=== PATIENT | male | born 1945 ===

== ENCOUNTER 2024-03-08 18:21 | Outpatient (NON) | payer MEDICARE, SELFPAY ==
[2024-03-08 18:41] LABS: Add Urine Microscopic? YES; Appearance Urine Clear (Clear); Bilirubin Urine Negative (Negative); Blood Urine Negative (Negative); Color Urine Light Yellow (Yellow); Glucose Urine UA Negative (Negative); Ketones Urine Trace (Negative); Leukocyte Esterase Ur Trace LEU/UL (Negative); Nitrate Urine Positive (Negative); Protein Urine Trace (Negative); Specific Grav Ur 1.025 (1.010-1.020); Urobilinogen Urine 0.2 mg/dL (0.2-1.0)
[2024-03-08 18:43] LABS: RBC Urine 0-2 /hpf (0-2); Squamous Epithelial Cell Urine Few /hpf (Few); WBC Urine 0-3 /hpf (0-3)
[2024-03-08 18:44] LABS: Bacteria Urine 3+ /hpf
== END 2024-03-08 18:22 | disposition home or self-care (01) ==
LOC: CHSLAB 18:28
DX: R35.0 Frequency of micturition (principal)
CPT/HCPCS: 81001; 87077; 87086; 87088; 87186

== ENCOUNTER 2024-05-20 13:17 | Observation (INO) | payer MEDICARE, SELFPAY ==
--- NOTE | ~2024-05-20 | CT_ITS ---
EXAMINATION: CT abdomen pelvis wo con DATE: 05/20/2024 13:59 INDICATION: Constipation and diarrhea. Generalized abdominal pain. TECHNIQUE: Computed tomography (CT) of the abdomen and pelvis was performed without intravenous contr ast. Automated exposure control and iterative reconstruction technique were employed. The dose-length product was 388.22 mGy-cm. COMPARISON: None. FINDINGS: The visualized portions of lung bases demonstrate mild atelectasis and mild chronic lung di sease. No pleural effusion. There is left atrial enlargement of the heart. There are coronary artery calcifications. No pericardial effusion. There is a 2.5 cm cyst in the liver. The gallbladder, spleen , pancreas, adrenal glands, and right kidney are normal. There is cortical thinning of left kidney. T here are no dilated loops of bowel. There is a moderate volume of stool in the colon. The appendix is normal. There are no pathologically enlarged lymph nodes. There is no free intraperitoneal fluid. Th ere is severe lumbar spondylosis. IMPRESSION: 1. No etiology for the patient's symptoms. Reviewed, dictated and finalized at location A. R MANAGER
--- NOTE | ~2024-05-20 | XR_ITS ---
EXAMINATION: XR chest 1V DATE: 05/20/2024 14:00 INDICATION: Weakness. Leg edema. TECHNIQUE: A single frontal view of the chest was obtained. COMPARISON: CT abdomen and pelvis 05/20/2024 FINDINGS: The lung apices are excluded. There is mild atelectasis at the lung bases. No pleural effus ion or pneumothorax. The heart size is normal. IMPRESSION: 1. Mild atelectasis at the lung bases. 2. Lung apices excluded. Reviewed, dictated and finalized at location A. S ANALYSIS MANAGER
--- NOTE | ~2024-05-20 | CT_ITS ---
EXAMINATION: CT lumbar spine wo con DATE: 05/20/2024 13:58 INDICATION: Low back pain. TECHNIQUE: Computed tomography (CT) of the lumbar spine was performed without intravenous contrast. A utomated exposure control and iterative reconstruction technique were employed. The dose-length produ ct was 892.54 mGy-cm. COMPARISON: None FINDINGS: There is 12 degrees dextroscoliosis of lumbar spine. There is mild chronic height loss of T 10-T12 vertebral bodies. There are Schmorl's nodes at multiple levels. There is mildly decreased disc height at T11-T12 and T12-L1, moderately decreased disc height at L1-L2 and L2-L3, severely decrease d disc height at L3-L4 and L4-L5, and moderately decreased disc height at L5-S1. Osseous central spin al canal is developmentally small. The following disc levels are specifically discussed: L1-L2: The disc is bulging. There is severe bilateral facet joint osteoarthritis. There is mild bilat eral neural foraminal stenosis. There is mild central canal stenosis. L2-L3: The disc is bulging. There is moderate bilateral facet joint osteoarthritis. There is moderate right and mild left neural foraminal stenosis. There is mild central canal stenosis. L3-L4: The disc is bulging. There is severe bilateral facet joint osteoarthritis. There is moderate b ilateral neural foraminal stenosis. There is mild central canal stenosis. L4-L5: The disc is bulging. There is severe bilateral facet joint osteoarthritis. There is moderate b ilateral neural foraminal stenosis. There is moderate central canal stenosis. L5-S1: The disc is bulging. There is severe bilateral facet joint osteoarthritis. There is mild bilat eral neural foraminal stenosis. There is mild central canal stenosis. IMPRESSION: 1. Severe lumbar spondylosis. 2. Lumbar dextroscoliosis. Reviewed, dictated and finalized at location A. STRIAL RELATIONS COMMISSIONER
[2024-05-20 13:21] VITALS: BP 153/101; PULSE 87; RESP 17; TEMP 36.4; O2SAT 97
--- OUTSIDE RECORDS SUMMARY | 2024-05-20 13:30 | XMS_ITS | Clinical Summary ---
Author Organization [facility] Address [address] [place] [address] Phone Care Team Providers Care Director Of Religious Life Name Role Phone JIMMY PRICE, SAI Primary Care Provider [phone] JIMMY Andrews, GLENNA Macias Unavailable [phone] Reason for Visit and Chief Complaint visit for: hyperlipedemia follow up, visit for: Followup of Chronic Pain theraphy, visit for: Hypertension follow-up - The Chief Complaint is: 2 months f/u, no new concerns Problems Includes: Problems addressed during this encounter and other active Problems Current Visit Onset Date Resolved Date Provider Mickie crowe Status Chronic Renal Failure 06/14/2022 MEGAN MARQUEZ M.D. Active Last Documented On 06/14/2022 11:26AM ; [facility] Note: Unchanged Constipation Drug-induced 02/18/2022 GLENNA MARQUEZ M.D. Active Last Documented On 02/18/2022 11:15AM ; [facility] Note: Unchanged Spinal Stenosis Lumbosacral 05/20/2021 GLENNA MARQUEZ M.D. Active Last Documented On 2 10:56AM ; [facility] Atrial Fibrillation 03/02/2021 GLENNA MARQUEZ M.D. Active Last Documented On 1 11:51AM ; [facility] Note: Unchanged Hyperlipidemia 08/04/2017 GLENNA MARQUEZ M.D. Active Last Documented On 8 10:00AM ; [facility] Note: Unchanged Esophageal Reflux 05/25/2012 GLENNA June Active Last Documented On 4 9:40AM ; [facility] Hyperlipidemia 08/25/2010 GLENNA MARQUEZ M.D. Inactive Last Documented On 5 10:50AM ; [facility] Essential Hypertension 08/25/2010 GLENNA WHEELER M.D. Active Last Documented On 4 9:40AM ; [facility] Plan of Treatment - Monitor Blood Pressure at home - Last Documented On 05/30/2023 11:25AM ; [facility] - Return to the clinic if condition worsens or new symptoms arise - Last Documented On 05/30/2023 11:25AM ; [facility] - Continue current medication - Last Documented On 05/30/2023 11:25AM ; [facility] - Modify drug dosage Lisinopril to 20 mg 2 x a day - Last Documented On 05/30/2023 11:25AM ; [facility] - Patient to call if problem develops - Last Documented On 05/30/2023 11:25AM ; [facility] Assessments Includes: Assessments from this encounter Findings - I48.91 - Unspecified atrial fibrillation - Last Documented On 05/30/2023 11:25AM ; [facility] - I10 - Essential (primary) hypertension - Last Documented On 05/30/2023 11:25AM ; [facility] - K21.9 - Gastro-esophageal reflux disease without esophagitis - Last Documented On 05/30/2023 11:25AM ; [facility] - K59.03 - Drug induced constipation - Last Documented On 05/30/2023 11:25AM ; [facility] - N18.9 - Chronic kidney disease, unspecified - Last Documented On 05/30/2023 11:25AM ; [facility] - E78.5 - Hyperlipidemia, unspecified - Last Documented On 05/30/2023 11:25AM ; [facility] - M48.07 - Spinal stenosis, lumbosacral region - Last Documented On 05/30/2023 11:25AM ; [facility] Medical Equipment - Implanted Devices Includes: Current Devices No Medical Equipment Recorded Medications Includes: Medications discussed during this encounter and other current Medications Discontinued / Stopped on this date GLENNA MARQUEZ M.D. on 11/17/2022 Movantik 25 MG Oral Tablet Provider: Atul MARQUEZ M.D. Diagnosis: Drug induced con stipation Last Documented On 05/30/2023 11:18AM By SAI MARQUEZ MD ; [facility] New / Renewed during this visit GLENNA MARQUEZ M.D. on 05/30/2023 Lisinopril 20 MG Oral Tablet Provider: GLENNA MARQUEZ M.D. 90 day supply: 180 tablet, 0 refills Diagnosis: Essential (primary) hypertension One tablet twice a day Pharmacy: [address] [phone] - Last Documented On 07/10/2023 2:02PM By SAI MARQUEZ MD ; [facility] Current Medications (continue as prescribed) HYDROcodone-Acetaminophen 7. 5-325 MG Oral Tablet 09/11/2023 Provider: GLENNA MARQUEZ M.D. Diagnosis: Spinal stenosis, lumbosacral region Take one four times a day as needed Last Documented On 09/11/2023 10:36AM By SAI MARQUEZ MD ; [facility] Lisinopril 20 MG Oral Tablet 07/10/2023 Provider: GLENNA MARQUEZ M.D. Diagnosis: Essential (prima ry) hypertension TAKE 1 TABLET BY MOUTH TWICE DAILY Last Documented On 07/10/2023 3:00PM By SAI MARQUEZ MD ; [facility] Eliquis 5 MG Oral Tablet 07/10/2023 Provider: SAI MARQUEZ M.D. Diagnosis: Unspecified atri al fibrillation One tablet twice a day Last Documented On 07/10/2023 2:28PM By SAI MARQUEZ MD ; [facility] Naloxone HCl 4 MG/0.1ML Nasal Liquid 03/29/2023 Provider: GLENNA MARQUEZ M.D. Diagnosis: long-term (curre nt) use of opiate analgesic as directed 4 mg nasally as needed Last Documented On 03/29/2023 11:32AM By SAI MARQUEZ MD ; [facility] Pravastatin Sodium 20 MG Oral Tablet 03/29/2023 Provider: GLENNA MARQUEZ M.D. Diagnosis: Hyperlipidemia, unspecified TAKE 1 TABLET BY MOUTH DAILY Last Documented On 03/29/2023 1:37PM By SAI MARQUEZ MD ; [facility] Suspended Medications MiraLax 17 GM/SCOOP Oral Powder 02/22/2023 Provider: GLENNA MARQUEZ M.D. Diagnosis: as directed 1 to scops q day Last Documented On 02/22/2023 8:51AM By GUERDA Beavers LPN ; [facility] Medications Administered Includes: Administered Medications from this encounter No Administered Medications Recorded Vital Signs Includes: Vital Signs from this encounter Vital Name 05/30/2023 11:01A Blood Pressure Sitting L 132/84 BP Cuff Size Regular Pulse Rate-Sitting (bpm) 68 Pulse Rhythm Regular Respiration Rate (breaths/min) 16 Height (in) 68 Weight (lb) 189.8 Body Mass Index 28.9 Body Surface Area 2 Oxygen Saturation (%) 97 Last Documented: On 05/30/2023 11:05A M ; [facility] Results Includes: Results discussed during this encounter CBC WITH DIFF [facility] La boratory Ordered by GLENNA Coronel on 05/11/2023 [address] [address], [place], [address] Collected: 05/26/2023 Report ed: 05/26/2023 11:17 tel: Last Documented On 4 12:04PM ; [facility] Reviewed by GLENNA MARQUEZ M.D. on 05/26/2023; All test results are final unless otherwise noted. ALC 1.2 None Last Documented On 4 11:58AM ; [facility] Note: Responsible Observer: (HRG) ANC 4.3 None Last Documented On 4 11:58AM ; [facility] Note: Responsible Observer: (HRG) BASO# 0.02 th/uL (0.00 - 0.20) None Last Documented On 4 11:58AM ; [facility] Note: Responsible Observer: (HRG) BASO% 0.3 % (0.0 - 2.0) None Last Documented On 4 11:58AM ; [facility] Note: Responsible Observer: (HRG) CBC WITH DIFF See Note None Last Documented On 4 11:58AM ; [facility] Note: CBC (COMPLETE BLOOD COUNT)Responsi ble Observer: (HRG) DIFF (Y/N) NO None Last Documented On 4 11:58AM ; [facility] Note: Responsible Observer: (HRG) EOS# 0.23 th/uL (0.00 - 0.45) None Last Documented On 4 11:58AM ; [facility] Note: Responsible Observer: (HRG) EOS% 3.6 % (0.0 - 9.0) None Last Documented On 4 11:58AM ; [facility] Note: Responsible Observer: (HRG) HCT 38.6 % (40.0 - 54.0) L (Low) Last Documented On 4 11:58AM ; [facility] Note: Responsible Observer: (HRG) HGB 12.9 g/dL (13.5 - 17.5) L (Low) Last Documented On 4 11:58AM ; [facility] Note: Responsible Observer: (HRG) IG# 0.04 th/ul (0.00 - 0.10) None Last Documented On 4 11:58AM ; [facility] Note: Responsible Observer: (HRG) IG% 0.6 % (0.0 - 0.5) H (High) Last Documented On 4 11:58AM ; [facility] Note: Responsible Observer: (HRG) LYMPH# 1.19 th/uL (1.00 - 4.80) None Last Documented On 4 11:58AM ; [facility] Note: Responsible Observer: (HRG) LYMPH% 18.7 % (14.0 - 45.0) None Last Documented On 4 11:58AM ; [facility] Note: Responsible Observer: (HRG) MCH 32.9 pg (25.0 - 35.0) None Last Documented On 4 11:58AM ; [facility] Note: Responsible Observer: (HRG) MCHC 33.4 g/dL (31.0 - 36.0) None Last Documented On 4 11:58AM ; [facility] Note: Responsible Observer: (HRG) MCV 98.5 fl (80.0 - 100) None Last Documented On 4 11:58AM ; [facility] Note: Responsible Observer: (HRG) MONO# 0.64 th/uL (0.00 - 0.80) None Last Documented On 4 11:58AM ; [facility] Note: Responsible Observer: (HRG) MONO% 10.1 % (1.0 - 10.0) H (High) Last Documented On 4 11:58AM ; [facility] Note: Responsible Observer: (HRG) MPV 12.7 fl (6.0 - 11.0) H (High) Last Documented On 4 11:58AM ; [facility] Note: Responsible Observer: (HRG) NEUT# 4.24 th/uL None Last Documented On 4 11:58AM ; [facility] Note: Responsible Observer: (HRG) NEUT% 66.7 % (45.0 - 76.0) None Last Documented On 4 11:58AM ; [facility] Note: Responsible Observer: (HRG) NRBC% 0.0 % (0.0 - 0.0) None Last Documented On 4 11:58AM ; [facility] Note: Responsible Observer: (HRG) PLT 141 th/uL (150 - 400) L (Low) Last Documented On 4 11:58AM ; [facility] Note: Responsible Observer: (HRG) RBC 3.92 mil/uL (4.50 - 5.90) L (Low) Last Documented On 4 11:58AM ; [facility] Note: Responsible Observer: (HRG) RDW 11.7 % (11.0 - 16.0) None Last Documented On 4 11:58AM ; [facility] Note: Responsible Observer: (HRG) WBC 6.4 th/uL (4.5 - 11.0) None Last Documented On 4 11:58AM ; [facility] Note: Responsible Observer: (HRG) BMP [facility] La boratory Ordered by GLENNA Coronel on 05/11/2023 [address] [facility], [place], [address] Collected: 05/26/2023 Report ed: 05/26/2023 11:34 tel: Last Documented On 4 12:04PM ; [facility] Reviewed by GLENNA MARQUEZ M.D. on 05/26/2023; All test results are final unless otherwise noted. AGE 78 YEARS None Last Documented On 4 11:58AM ; [facility] Note: Responsible Observer: (APR) ANION GAP 14.3 mmol/L (8.0 - 16.0) None Last Documented On 4 11:58AM ; [facility] Note: eGFR INTERPRETATION AGE AVG GFR 2 0-29 116 ml/min/1.73 m2 30-39 107 ml/min/1.73 m2 40-49 99 ml/min/1.73 m2 50-59 93 ml/min/1.73 m2 60-69 85 ml/min/1.73 m2 70+ 75 ml/min/1.73 m2 Chronic Kidney Disease-Less than 60 ml/min Kidney Failure-Less than 15 ml/min eGFR not calculated on patients <18 due to calculation differences. Please see the website below for the pediatric GFR calculator. https://www.kidney.org/professionals/kdoqi/gfr_calculatorped Responsible Observer: (APR) BMP See Note None Last Documented On 4 11:58AM ; [facility] Note: BASIC METABOLIC PANELResponsible O bserver: (APR) BUN 24 mg/dL (9 - 20) H (High) Last Documented On 4 11:58AM ; [facility] Note: Responsible Observer: (APR) CALCIUM 9.2 mg/dL (8.9 - 10.0) None Last Documented On 4 11:58AM ; [facility] Note: Responsible Observer: (APR) CHLORIDE 105 mmol/L (98 - 107) None Last Documented On 4 11:58AM ; [facility] Note: Responsible Observer: (APR) CREATININE 1.4 mg/dL (0.8 - 1.5) None Last Documented On 4 11:58AM ; [facility] Note: Responsible Observer: (APR) eGFR. 51 mL/min None Last Documented On 4 11:58AM ; [facility] Note: Responsible Observer: (APR) GLUCOSE 86 mg/dL (70 - 105) None Last Documented On 4 11:58AM ; [facility] Note: Responsible Observer: (APR) POTASSIUM 4.3 mmol/L (3.6 - 5.0) None Last Documented On 4 11:58AM ; [facility] Note: Responsible Observer: (APR) SODIUM 139 mmol/L (137 - 145) None Last Documented On 4 11:58AM ; [facility] Note: Responsible Observer: (APR) TCO2 24.0 mmol/L (22.0 - 30.0) None Last Documented On 4 11:58AM ; [facility] Note: Responsible Observer: (APR) History of Present Illness Includes: History of Present Illness from this encounter HPI MARIANNA JUAN is a 78 year old male. Feels ok BP higer in am / before meds using Miralax for constipation. - Allergy list reviewed - Medication list reviewed - - Reviewed Blood Pressures records from home Pain is controlled on curent meds. Tolerating medications without problems. Functional on current medications. Tapering or change in current medication detrimental to patient's condition. Hyperlipedemia is stable on curent meds. Tolerating medications without problems Social History Description Last Updated Amount of sleep 10 12/09/2022 Last Documented On 4 11:01AM ; [facility] DME in home: 06/14/2022 Last Documented On 4 11:01AM ; [facility] DME in home: cane 06/14/2022 Last Documented On 4 11:01AM ; [facility] [PHQ-2] Patient Health Questionnaire 2 i tem total score: 17 (Scale: 0-6) 02/10/2021 Last Documented On 4 11:01AM ; [facility] Difficulty walking 02/10/2021 Last Documented On 4 11:01AM ; [facility] No consumption of alcohol 02/10/2021 Last Documented On 4 11:01AM ; [facility] Not using drugs 02/10/2021 Last Documented On 4 11:01AM ; [facility] Stopped smoking 40 years ago 12/23/2020 Last Documented On 4 11:01AM ; [facility] Current nonsmoker 07/10/2020 Last Documented On 4 11:01AM ; [facility] Former smoker Pt states he quit smoking over 50 yrs ago 07/10/2020 Last Documented On 4 11:01AM ; [facility] Feeling down, depressed, or hopeless in the last 2 weeks? 0 pt Not at all 07/01/2020 Last Documented On 4 11:01AM ; [facility] Lost interest or pleasure in doing thing s was 0 Not at all 07/01/2020 Last Documented On 4 11:01AM ; [facility] Not using alcohol 07/01/2020 Last Documented On 4 11:01AM ; [facility] Non-smoker 11/06/2019 Last Documented On 4 11:01AM ; [facility] No tobacco use prev hx of 50 pack years smoking at young age 0105/08/2019 Last Documented On 4 11:01AM ; [facility] Not using alcohol 11/03/2017 Last Documented On 4 11:01AM ; [facility] Smoking status : Former smoker 8 Last Documented On 4 11:01AM ; [facility] Lives alone 07/23/2012 Last Documented On 4 11:01AM ; [facility] Caffeine use 09/28/2011 Last Documented On 4 11:01AM ; [facility] Single 09/21/2011 Last Documented On 4 11:01AM ; [facility] Retired from work 07/07/2011 Last Documented On 4 11:01AM ; [facility] Abnormal diet TRY TO EAT HARDLY ANY RED MEAT. EAT FISH,VEGETABLES, ETC 08/25/2010 Last Documented On 4 11:01AM ; [facility] Exercise frequency BIKE RIDE 1/2 HR, WA LK 1/2 HR, WEIGHTS 1/2 HR 08/25/2010 Last Documented On 4 11:01AM ; [facility] Occupation [employer]D [employer]-RETIRED 200608/25/2010 Last Documented On 4 11:01AM ; [facility] Procedures and Surgical History Includes: Procedures from this encounter Procedures Code Diagnosis Performing Provider Service L ocation Service Date use of tobacco assessment performed 1000F Last Documented On 4 11:06AM ; [facility] review of medications documented 1160F Last Documented On 4 11:06AM ; [facility] Surgical History Last Updated No Pacemaker 02/10/2021 Last Documented On 4 11:01AM ; [facility] History of prostate surgery 09/2009 Last Documented On 4 11:01AM ; [facility] Medical History Includes: Medical History addressed during this encounter Description Last Updated Vaccine history 05/30/2023 Last Documented On 4 11:25AM ; [facility] Diastolic blood pressure 85 mmHg 023 Last Documented On 4 11:01AM ; [facility] Systolic blood pressure 150 mmHg 023 Last Documented On 4 11:01AM ; [facility] No diagnosis of history of chronic obstr uctive pulmonary disease 12/09/2022 Last Documented On 4 11:01AM ; [facility] No diagnosis of history of diabetes fozia itus 12/09/2022 Last Documented On 4 11:01AM ; [facility] No history of Congestive Heart Failure 0 12/09/2022 Last Documented On 4 11:01AM ; [facility] Surgery prostate and bladder surgery 04/2022 Last Documented On 4 11:01AM ; [facility] Please list all illnesses/co nditions you have been diagnosed with: Cancer. Prostate and Bladder 02/10/2021 Last Documented On 4 11:01AM ; [facility] Back brace 02/10/2021 Last Documented On 4 11:01AM ; [facility] Currently wearing eyeglasses 02/10/2021 Last Documented On 4 11:01AM ; [facility] No Pain Pump 02/10/2021 Last Documented On 4 11:01AM ; [facility] No Spinal cord stimulator 02/10/2021 Last Documented On 4 11:01AM ; [facility] Please list all surgeries: Prostrate marilu e 2009. bladder. dec 2013 02/10/2021 Last Documented On 4 11:01AM ; [facility] Severe Pain 02/10/2021 Last Documented On 4 11:01AM ; [facility] Uses a cane for support 02/10/2021 Last Documented On 4 11:01AM ; [facility] No Contact with and (Suspected) exposure to COVID-19 07/01/2020 Last Documented On 4 11:01AM ; [facility] No fall 07/01/2020 Last Documented On 4 11:01AM ; [facility] Not using Opioids 07/01/2020 Last Documented On 4 11:01AM ; [facility] Denies a fear of falling. 05/08/2019 Last Documented On 4 11:01AM ; [facility] Has had no fall in the last 12 months. 0 05/08/2019 Last Documented On 4 11:01AM ; [facility] Medication compliance 07/23/2012 Last Documented On 4 11:01AM ; [facility] Taking medication 09/28/2011 Last Documented On 4 11:01AM ; [facility] Prostate Ca, SP Prostatectomy ~ Urology Dr Charlton 07/07/2011 Last Documented On 4 11:01AM ; [facility] History of essential hypertension 2011 Last Documented On 4 11:01AM ; [facility] History of hyperlipidemia 07/07/2011 Last Documented On 4 11:01AM ; [facility] History of hypertension 08/25/2010 Last Documented On 4 11:01AM ; [facility] Family History Includes: Family History addressed during this encounter Description Last Updated Family history of Cancer Breast Cancer 0 12/09/2022 Last Documented On 4 11:01AM ; [facility] Not using Opioids 12/09/2022 Last Documented On 4 11:01AM ; [facility] Fraternal history of family history of i schemic heart disease 02/10/2021 Last Documented On 4 11:01AM ; [facility] Fraternal history of coronary artery dis ease 08/04/2017 Last Documented On 4 11:01AM ; [facility] Family history reviewed - unchanged sin e last visit 11/06/2015 Last Documented On 4 11:01AM ; [facility] Fraternal history of cancer 04/29/2015 Last Documented On 4 11:01AM ; [facility] Fraternal history of heart disease 04/29 Last Documented On 4 11:01AM ; [facility] Maternal history of cancer 04/29/2015 Last Documented On 4 11:01AM ; [facility] Family history of cancer 07/07/2011 Last Documented On 4 11:01AM ; [facility] Family history of coronary artery diseas e 07/07/2011 Last Documented On 4 11:01AM ; [facility] Brother 69 years old [place] 8 YEARS AGO 08/25/2010 Last Documented On 4 11:01AM ; [facility] Father 1985 AT AGE 74- PUMA GEHRIG'S TYPE DISEASE 08/25/2010 Last Documented On 4 11:01AM ; [facility] Heart disease 08/25/2010 Last Documented On 4 11:01AM ; [facility] Mother 1995 AT AGE 72- BREAST CANCER 08/25/2010 Last Documented On 4 11:01AM ; [facility] Review of Systems Includes: Review of Systems from this encounter Systemic: Not feeling tired. No fever, no chills, and no night sweats. Head: Headache. Cardiovascular: No chest pain or discomfort and no palpitations. Pulmonary: No dyspnea and not expressed as feeling short of breath. No paroxysmal nocturnal dyspnea, no orthopnea, no cough, not coughing up sputum, no hemoptysis, and no wheezing. Gastrointestinal: Normal appetite and no polyphagia. No early satiety, no abdominal pain, and no melena. No diarrhea and no constipation. Genitourinary: No hematuria, no change in urinary frequency, and no polyuria. No dysuria. Endocrine: No polydipsia. Musculoskeletal: No muscle aches and no arthralgias. Neurological: No dizziness and no fainting. Mental Status Includes: Mental Status from this encounter Description Oriented to time, place, and person Functional Status Includes: Functional Status from this encounter No Functional Status Recorded Physical Exam Includes: Physical Exam from this encounter Allergies Includes: Active Allergies Substance Type Reaction Onset Date Resolved Date Statu s Gabapentin Intolerance confusion 12/23/2020 Active Last Documented On 4 10:45AM ; [facility] Allergy 12/22/2015 Active Last Documented On 4 10:45AM ; [facility] Encounters Encounter Provider Location Date Check-In Time Check-Out Time Diagnosis CHECK UP GLENNA MARQUEZ M.D. [facility] 05/30/19 24 10:57AM 11:15AM Essential Hypertension, Esophageal Reflux,Hyperl ipidemia,Atri al Fibrillation, Spinal Stenosis Lumbosacral,C onstipation Drug-induced, Chronic Renal Failure Insurance Includes: Active Insurance Policies Plan Name Member ID Group # Subscriber Relationship Effect shannon Dates 1 - MEDICARE PART A CLAIMS/NGS [id number] [facility] [employer] [facility] 2 - [facility] OPTIONS [id number] [facility] [employer] [facility] Clinical Notes Includes: Clinical Notes from this encounter * Progress note Date Encounter Last Documented by 05/30/2023 CHECK UP Last documented on 05/30/2023; 11:25 AM, GLENNA MARQUEZ M.D.; [facility] Active Problems & Conditions - I48.91 - Atrial Fibrillation - N18.9 - Chronic Renal Failure - K59.03 - Constipation Drug-induced - K21.9 - Esophageal Reflux - I10 - Essential Hypertension - E78.5 - Hyperlipidemia - M48.07 - Spinal Stenosis Lumbosacral Chief Complaint The Chief Complaint is: 2 months f/u, no new concerns. Reason For Visit Visit for: Hypertension follow-up, visit for: Followup of Chronic Pain theraphy, and visit for: hyperlipedemia follow up. History of Present Illness MARIANNA JUAN is a 78 year old male. Feels ok BP higer in am / before meds using Miralax for constipation. - Allergy list reviewed - Medication list reviewed - - Reviewed Blood Pressures records from home Pain is controlled on curent meds. Tolerating medications without problems. Functional on current medications. Tapering or change in current medication detrimental to patient's condition. Hyperlipedemia is stable on curent meds. Tolerating medications without problems Current Medication - Eliquis 5 MG Oral Tablet TAKE 1 TABLET BY MOUTH TWICE DAILY, 30 days, 0 refills - HYDROcodone-Acetaminophen 7.5-325 MG Oral Tablet Take one four times a day as needed, 28 days, 0 refills - Lisinopril 10 MG Oral Tablet TAKE 1 TABLET BY MOUTH TWICE DAILY, 90 days, 0 refills - Naloxone HCl 4 MG/0.1ML Nasal Liquid as directed 4 mg nasally as needed, 30 days, 5 refills - Pravastatin Sodium 20 MG Oral Tablet TAKE 1 TABLET BY MOUTH DAILY, 90 days, 0 refills Past Medical/Surgical History Reported: Surgery prostate and bladder surgery. Back brace, Please list all illnesses/conditions you have been diagnosed with: Cancer. Prostate and Bladder, and Please list all surgeries: Prostrate september 2009. bladder. dec 2013. Recent Events: Medication regimen compliance. Medical: Vaccine history. Currently wearing eyeglasses, orthopedic history Left Knee Score mild pain Severe Pain, and Uses a cane for support. No Spinal cord stimulator and no Pain Pump. Surgical / Procedural: No Pacemaker. Medications: Taking medication. Tests: Systolic blood pressure 150 mmHg and diastolic was 85 mmHg. Exposure: No Contact with and (Suspected) exposure to COVID-19. Physical Trauma: No fall, Has had no fall in the last 12 months., and Denies a fear of falling. Drug Use: Not using Opioids. Other: No Congestive Heart Failure Diagnoses: Essential hypertension. No diagnosis of chronic obstructive pulmonary disease. Hyperlipidemia. No diagnosis of diabetes mellitus Prostate Ca, SP Prostatectomy Urology Dr Charlton. Surgical: - Prostate surgery 09/2009 Social History Difficulty walking. Lost interest or pleasure in doing things was 0 Not at all. Current diet: Abnormal diet TRY TO EAT HARDLY ANY RED MEAT. EAT FISH,VEGETABLES, ETC. Caffeine use: Caffeine use. Tobacco use: No tobacco use prev hx of 50 pack years smoking at young age. Former smoker Pt states he quit smoking over 50 yrs ago, stopped smoking 40 years ago, current nonsmoker, and non-smoker. Smoking status: Former smoker. Alcohol: No consumption of alcohol, not using alcohol, and not using alcohol. Drug Use: Not using drugs. Habits: Amount of sleep 10. Exercise frequency BIKE RIDE 1/2 HR, WALK 1/2 HR, WEIGHTS 1/2 HR. Housing And Economic Circumstances: Lives alone and durable medical equipment: cane. Work: Retired from work and occupation [employer]-RETIRED 2006. Marital: Single. Functional: Feeling down, depressed, or hopeless in the last 2 weeks? 0 pt Not at all and [PHQ-2] Patient Health Questionnaire 2 item total score: 17 (Scale: 0-6). Allergies - BEES - Gabapentin (Intolerance) Reaction: confusion Family History Father 1985 AT AGE 74-PUMA GEHRIG'S TYPE DISEASE Mother 1995 AT AGE 72-BREAST CANCER Brother 69 years old BYPASS SURGERY AROUND 8 YEARS AGO Cancer Heart disease Family history reviewed - unchanged since last visit Not using Opioids Cancer Breast Cancer Coronary artery disease Maternal: Cancer Fraternal: Ischemic heart disease Coronary artery disease Heart disease Cancer Review Of Systems Systemic: Not feeling tired. No fever, no chills, and no night sweats. Head: Headache. Cardiovascular: No chest pain or discomfort and no palpitations. Pulmonary: No dyspnea and not expressed as feeling short of breath. No paroxysmal nocturnal dyspnea, no orthopnea, no cough, not coughing up sputum, no hemoptysis, and no wheezing. Gastrointestinal: Normal appetite and no polyphagia. No early satiety, no abdominal pain, and no melena. No diarrhea and no constipation. Genitourinary: No hematuria, no change in urinary frequency, and no polyuria. No dysuria. Endocrine: No polydipsia. Musculoskeletal: No muscle aches and no arthralgias. Neurological: No dizziness and no fainting. Physical Findings - Vitals taken 05/30/2023 11:01 am BP-Sitting L 132/84 mmHg 100 - 120/60 - 80 BP Cuff Size Regular Pulse Rate-Sitting 68 bpm 50 - 100 Pulse Rhythm Regular Respiration Rate 16 per min 18 - 26 Height 68 in 64 - 74 Weight 189 lbs 12.8 oz 121 - 205 Body Mass Index 28.9 kg/m2 Body Surface Area 2 m2 Oxygen Saturation 97 % 93 - 100 General Appearance: - Well hydrated. - Well developed. - In no acute distress. Neck: - Normal No lymphadenopathy, no neck masses, trachea midline. Eyes: General/bilateral: - Eyes: normal Anicteric, pink conjunctivae, eyelids are normal. Pupils: - PERRL Pupils equally reactive to light and accomodation. Lungs: - Respiration rhythm and depth was normal Normal respiratory pattern/ effort. - Clear to auscultation No Rales, No rhonchi, No Wheezing. Cardiovascular: Auscultation: - Normal No Murmurs, Rubs or Gallops. Heart Rate And Rhythm: - Normal Regular rate and Rhythm. Edema: - Not present. Neurological: - Oriented to time, place, and person. Psychiatric: Mood: - Euthymic Appropriate mood and affect. Assessment - I48.91 - Unspecified atrial fibrillation - I10 - Essential (primary) hypertension - K21.9 - Gastro-esophageal reflux disease without esophagitis - K59.03 - Drug induced constipation - N18.9 - Chronic kidney disease, unspecified - E78.5 - Hyperlipidemia, unspecified - M48.07 - Spinal stenosis, lumbosacral region Previous Tests - Test: CBC WITH DIFF Report Date: 05/26/2023 ALC 1.2 ANC 4.3 BASO# 0.02 th/uL BASO% 0.3 % CBC WITH DIFF DIFF (Y/N) NO EOS# 0.23 th/uL EOS% 3.6 % HCT 38.6 % Low HGB 12.9 g/dL Low IG# 0.04 th/ul IG% 0.6 % High LYMPH# 1.19 th/uL LYMPH% 18.7 % MCH 32.9 pg MCHC 33.4 g/dL MCV 98.5 fl MONO# 0.64 th/uL MONO% 10.1 % High MPV 12.7 fl High NEUT# 4.24 th/uL NEUT% 66.7 % NRBC% 0.0 % PLT 141 th/uL Low RBC 3.92 mil/uL Low RDW 11.7 % WBC 6.4 th/uL - Test: BMP Report Date: 05/26/2023 AGE 78 YEARS ANION GAP 14.3 mmol/L BMP BUN 24 mg/dL High CALCIUM 9.2 mg/dL CHLORIDE 105 mmol/L CREATININE 1.4 mg/dL eGFR. 51 mL/min GLUCOSE 86 mg/dL POTASSIUM 4.3 mmol/L SODIUM 139 mmol/L TCO2 24.0 mmol/L Vaccinations - Received dose of influenza virus vaccine - Received dose of pneumococcal vaccine Counseling/Education - Clinical summary provided to patient - Plan of care reviewed and agreed to current plan of treatment Reviewed and Discussed lab test results with Patient. Plan StartCited - Essential (primary) hypertension Lab: LIPID PANEL Lab: CMP Lab: CBC WITH DIFF Lisinopril 20 MG tablet One tablet twice a day, 90 days, 0 refills EndCited StartCited - Other Follow-up FOLLOW UP IN 3 MONTHS WITH LABS BEFORE EndCited - Monitor Blood Pressure at home - Return to the clinic if condition worsens or new symptoms arise - Continue current medication - Modify drug dosage Lisinopril to 20 mg 2 x a day - Patient to call if problem develops Practice Management Use of tobacco assessment performed Review of medications documented.
--- OUTSIDE RECORDS SUMMARY | 2024-05-20 13:31 | XMS_ITS | Clinical Summary ---
Author Organization [facility] Address [address] [place] [address] Phone Care Team Providers Care Research Test Engine Operator Name Role Phone JIMMY PRICE, SAI Primary Care Provider [phone] JIMMY Andrews, GLENNA Macias Unavailable [phone] Reason for Visit and Chief Complaint CAROTID ULTRASOUND Problems Includes: Problems addressed during this encounter and other active Problems All Visits Onset Date Resolved Date Provider Condition S tatus Chronic Renal Failure 06/14/2022 MEGAN MARQUEZ M.D. Active Last Documented On 06/14/2022 11:26AM ; [facility] Note: Unchanged Constipation Drug-induced 02/18/2022 GLENNA MARQUEZ M.D. Active Last Documented On 02/18/2022 11:15AM ; [facility] Note: Unchanged Spinal Stenosis Lumbosacral 05/20/2021 GLENNA MARQUEZ M.D. Active Last Documented On 2 10:56AM ; [facility] Atrial Fibrillation 03/02/2021 GLENNA MARQUEZ M.D. Active Last Documented On 1 11:51AM ; [facility] Note: Unchanged Hyperlipidemia 08/04/2017 GLENNA MARQUEZ M.D. Active Last Documented On 8 10:00AM ; [facility] Note: Unchanged Esophageal Reflux 05/25/2012 GLENNA June Active Last Documented On 4 9:40AM ; [facility] Essential Hypertension 08/25/2010 GLENNA WHEELER M.D. Active Last Documented On 4 9:40AM ; [facility] Plan of Treatment No Plan of Treatment Recorded Assessments Includes: Assessments from this encounter No Assessments Recorded Medical Equipment - Implanted Devices Includes: Current Devices No Medical Equipment Recorded Medications Includes: Medications discussed during this encounter and other current Medications Current Medications (continue as prescribed) HYDROcodone-Acetaminophen 7. 5-325 MG Oral Tablet 09/11/2023 Provider: GLENNA MARQUEZ M.D. Diagnosis: Spinal stenosis, lumbosacral region Take one four times a day as needed Last Documented On 09/11/2023 10:36AM By SAI MARQUEZ MD ; [facility] Lisinopril 20 MG Oral Tablet 07/10/2023 Provider: GLENNA MARQUEZ M.D. Diagnosis: Essential (prima ry) hypertension TAKE 1 TABLET BY MOUTH TWICE DAILY Last Documented On 07/10/2023 3:00PM By SAI MARQUEZ MD ; [facility] Eliquis 5 MG Oral Tablet 07/10/2023 Provider: SAI MARQUEZ M.D. Diagnosis: Unspecified atri al fibrillation One tablet twice a day Last Documented On 07/10/2023 2:28PM By SAI MARQUEZ MD ; [facility] Naloxone HCl 4 MG/0.1ML Nasal Liquid 03/29/2023 Provider: GLENNA MARQUEZ M.D. Diagnosis: half-way (curre nt) use of opiate analgesic as directed 4 mg nasally as needed Last Documented On 03/29/2023 11:32AM By SAI MARQUEZ MD ; [facility] Pravastatin Sodium 20 MG Oral Tablet 03/29/2023 Provider: GLENNA MARQUEZ M.D. Diagnosis: Hyperlipidemia, unspecified TAKE 1 TABLET BY MOUTH DAILY Last Documented On 03/29/2023 1:37PM By SAI MARQUEZ MD ; [facility] Suspended Medications MiraLax 17 GM/SCOOP Oral Powder 02/22/2023 Provider: GLENNA MARQUEZ M.D. Diagnosis: as directed 1 to scops q day Last Documented On 02/22/2023 8:51AM By GUERDA Beavers LPN ; [facility] Medications Administered Includes: Administered Medications from this encounter No Administered Medications Recorded Results Includes: Results discussed during this encounter No Results Recorded For Specified Dates History of Present Illness Includes: History of Present Illness from this encounter No History of Present Illness Recorded Social History No Social History Recorded - Smoking Status Unknown Procedures and Surgical History Includes: Procedures from this encounter Procedures Code Diagnosis Performing Provider Service Location Service Date DUPLEX SCAN OF EXTRACRANIAL ARTERIES; COMP BRAXTON (Professional Comp.) 75241 Occlusion and stenosis of bilateral carotid arteries ANNAMARIA JONES MD [facility] 09/18/2023 Last Documented On 4 10:18AM ; [facility] Medical History Includes: Medical History addressed during this encounter No Medical History Recorded Family History Includes: Family History addressed during this encounter No Family History Recorded Review of Systems Includes: Review of Systems from this encounter No Review of Systems Recorded Mental Status Includes: Mental Status from this encounter No Mental Status Recorded Functional Status Includes: Functional Status from this encounter No Functional Status Recorded Physical Exam Includes: Physical Exam from this encounter No Physical Exam Recorded Allergies Includes: Active Allergies Substance Type Reaction Onset Date Resolved Date Statu s Gabapentin Intolerance confusion 12/23/2020 Active Last Documented On 4 10:45AM ; [facility] BEES Allergy 12/22/2015 Active Last Documented On 4 10:45AM ; [facility] Encounters Encounter Provider Location Date Check-In Time Check-Out Time Diagnosis CAROTID ULTRASOUND ANNAMARIA JONES MD [facility] 09/18/19 24 10:41AM 11:28AM Insurance Includes: Active Insurance Policies Plan Name Member ID Group # Subscriber Relationship Effect shannon Dates 1 - MEDICARE PART A CLAIMS/NGS [id number] MARIANNA Salas 2 - [facility] OPTIONS [id number] MARIANNA Salas Clinical Notes Includes: Clinical Notes from this encounter No Clinical Notes Recorded
--- OUTSIDE RECORDS SUMMARY | 2024-05-20 13:31 | XMS_ITS | Clinical Summary ---
Author Organization [facility] Address [address] [place] [address] Phone Care Team Providers Care County Historian Name Role Phone JIMMY PRICE, SAI Primary Care Provider [phone] JIMMY Andrews, GLENNA Macias Unavailable [phone] Reason for Visit and Chief Complaint ECHOCARDIOGRAM Problems Includes: Problems addressed during this encounter and other active Problems All Visits Onset Date Resolved Date Provider Condition S tatus Chronic Renal Failure 06/14/2022 MEGAN MARQUEZ M.D. Active Last Documented On 06/14/2022 11:26AM ; [facility] Note: Unchanged Constipation Drug-induced 02/18/2022 GLENNA MARQUEZ M.D. Active Last Documented On 02/18/2022 11:15AM ; [facility] Note: Unchanged Spinal Stenosis Lumbosacral 05/20/2021 GLENNA MARQUEZ M.D. Active Last Documented On 2 10:56AM ; [facility] Atrial Fibrillation 03/02/2021 GLENNA MARQUEZ M.D. Active Last Documented On 1 11:51AM ; [facility] Note: Unchanged Hyperlipidemia 08/04/2017 GLENNA MARQUEZ M.D. Active Last Documented On 8 10:00AM ; [facility] Note: Unchanged Esophageal Reflux 05/25/2012 GLENNA June Active Last Documented On 4 9:40AM ; [facility] Essential Hypertension 08/25/2010 GLENNA WHEELER M.D. Active Last Documented On 4 9:40AM ; [facility] Plan of Treatment No Plan of Treatment [...] 09/11/2023 10:36AM By SAI MARQUEZ MD ; [facility] Lisinopril 20 MG Oral Tablet 07/10/2023 Provider: GLENNA MARQUEZ M.D. Diagnosis: Essential (prima ry) hypertension TAKE 1 TABLET BY MOUTH TWICE DAILY Last Documented On 07/10/2023 3:00PM By SAI MARQUEZ MD ; [facility] Eliquis 5 MG Oral Tablet 07/10/2023 Provider: SAI MARQUEZ M.D. Diagnosis: Unspecified atri al fibrillation One tablet twice a day Last Documented On 07/10/2023 2:28PM By SAI MARQUEZ MD ; [facility] Naloxone HCl 4 MG/0.1ML Nasal Liquid 03/29/2023 Provider: GLENNA MARQUEZ M.D. Diagnosis: group home (curre nt) use of opiate analgesic as directed 4 mg nasally as needed Last Documented On 03/29/2023 11:32AM By SAI MARQUEZ MD ; [facility] Pravastatin Sodium 20 MG Oral Tablet 03/29/2023 Provider: GLENNA MARQUEZ M.D. Diagnosis: Hyperlipidemia, unspecified TAKE 1 TABLET BY MOUTH DAILY Last Documented On 03/29/2023 1:37PM By SAI MARQUEZ MD ; [facility] Suspended Medications MiraLax 17 GM/SCOOP Oral Powder 02/22/2023 Provider: GLENNA MARQUEZ M.D. Diagnosis: as directed 1 to scops q day Last Documented On 02/22/2023 8:51AM By GUERDA Beavers LPN ; [facility] Medications Administered Includes: Administered Medications [...] Diagnosis Performing Provider Service Location Service Date ECHOCARDIOGRAPHY- TRANSTHORAC W/ DOPPLER (Professional Comp.) 27889 Other persistent atrial fibrillation, Essential (primary) hypertension, Mixed hyperlipidemia, Rheumatic disorders of both mitral and tricuspid valves CALOS JONES MD [facility]- 08/25/2023 Last Documented On 4 1:23PM ; [facility] ELECTROCARDIAGRAM READING FEE (EKG) (DISTINCT PROCEDURAL SERVICE DIFFERENT SITE) 73855 Other persistent atrial fibrillation, Essential (primary) hypertension CALOS JONES MD [facility]- 08/25/2023 Last Documented On 4 1:23PM ; [facility] Medical History Includes: Medical History addressed during [...] Active Last Documented On 4 10:45AM ; [facility] BEES Allergy 12/22/2015 Active Last Documented On 4 10:45AM ; [facility] Encounters Encounter Provider Location Date Check-In Time Check-Out Time Diagnosis ECHOCARDIOGRAM CALOS JONES MD [facility] 4 10:40AM 11:26AM Insurance Includes: Active Insurance Policies Plan Name Member ID Group # Subscriber Relationship Effect shannon Dates 1 - MEDICARE PART A CLAIMS/NGS [id number] MARIANNA Salas 2 - [facility] OPTIONS [id number] MARIANNA Salas Clinical Notes Includes: Clinical Notes from this encounter No Clinical Notes Recorded
--- OUTSIDE RECORDS SUMMARY | 2024-05-20 13:31 | XMS_ITS | Clinical Summary ---
Author Organization [facility] Address [address] [place] [address] Phone Care Team Providers Care Aviation Safety Equipment Technician Name Role Phone JIMMY PRICE, SAI Primary Care Provider [phone] JIMMY Andrews, GLENNA Macias Unavailable [phone] Reason for Visit and Chief Complaint HEART CENTER CHECK UP Problems Includes: Problems addressed during this encounter and other active Problems All Visits Onset Date Resolved Date Provider Condition S tatus Chronic Renal Failure 06/14/2022 MEGAN MARQUEZ M.D. Active Last Documented On 06/14/2022 11:26AM ; [facility] Note: Unchanged Constipation Drug-induced 02/18/2022 GLENNA MARQUEZ M.D. Active Last Documented On 02/18/2022 11:15AM ; [facility] Note: Unchanged Spinal Stenosis Lumbosacral 05/20/2021 GLENNA MARQUEZ M.D. Active Last Documented On 2 10:56AM ; [facility] Atrial Fibrillation 03/02/2021 GLENNA MARQUEZ M.D. Active Last Documented On 1 11:51AM ; [facility] Note: Unchanged Hyperlipidemia 08/04/2017 GLENNA MARQUEZ M.D. Active Last Documented On 8 10:00AM ; [facility] Note: Unchanged Esophageal Reflux 05/25/2012 GLENNA June Active Last Documented On 4 9:40AM ; [facility] Essential Hypertension 08/25/2010 GLENNA WHEELER M.D. Active Last Documented On 4 9:40AM ; [facility] Plan of Treatment No Plan [...] 09/11/2023 10:36AM By SAI MARQUEZ MD ; [facility] Lisinopril 20 MG Oral Tablet 07/10/2023 Provider: GLENNA MARQUEZ M.D. Diagnosis: Essential (prima ry) hypertension TAKE 1 TABLET BY MOUTH TWICE DAILY Last Documented On 07/10/2023 3:00PM By SAI MARQUEZ MD ; [facility] Eliquis 5 MG Oral Tablet 07/10/2023 Provider: SAI MARQUEZ M.D. Diagnosis: Unspecified atri al fibrillation One tablet twice a day Last Documented On 07/10/2023 2:28PM By SAI MARQUEZ MD ; [facility] Naloxone HCl 4 MG/0.1ML Nasal Liquid 03/29/2023 Provider: GLENNA MARQUEZ M.D. Diagnosis: longterm (curre nt) use of opiate analgesic as directed 4 mg nasally as needed Last Documented On 03/29/2023 11:32AM By SAI MARQUEZ MD ; [facility] Pravastatin Sodium 20 MG Oral Tablet 03/29/2023 Provider: GLENNA MARQUEZ M.D. Diagnosis: Hyperlipidemia, unspecified TAKE 1 TABLET BY MOUTH DAILY Last Documented On 03/29/2023 1:37PM By SAI MARQUEZ MD ; [facility] Suspended Medications MiraLax 17 GM/SCOOP Oral Powder 02/22/2023 Provider: GLENNA MARQUEZ M.D. Diagnosis: as directed 1 to scops q day Last Documented On 02/22/2023 8:51AM By GUERDA Beavers LPN ; [facility] Medications Administered Includes: Administered Medications from this encounter No Administered Medications Recorded Results Includes: Results discussed during this encounter No Results Recorded For Specified Dates History of Present Illness Includes: History of Present Illness from this encounter No History of Present Illness Recorded Social History No Social History Recorded - Smoking Status Unknown Medical History Includes: Medical History addressed during [...] Active Last Documented On 4 10:45AM ; [facility] BEES Allergy 12/22/2015 Active Last Documented On 4 10:45AM ; [facility] Encounters Encounter Provider Location Date Check-In Time Check- Out Time Diagnosis HEART CENTER CHECK UP CALOS JONES MD [facility] 4 11:30AM 11:53AM Insurance Includes: Active Insurance Policies Plan Name Member ID Group # Subscriber Relationship Effect shannon Dates 1 - MEDICARE PART A CLAIMS/NGS [id number] MARIANNA Salas 2 - [facility] OPTIONS [id number] MARIANNA Salas Clinical Notes Includes: Clinical Notes from this encounter No Clinical Notes Recorded
--- OUTSIDE RECORDS SUMMARY | 2024-05-20 13:31 | XMS_ITS ---
Care Plan - [facility] Created on: May 20, 2024 DRAKEMARIANNA : 1945 Sex: Male Author Organization [facility] Address [address] [place] [address] Phone Care Team Providers Care Natural Gas Shothole Driller Name Role Phone JIMMY PRICE, SAI Primary Care Provider [phone] JIMMY Andrews, GLENNA Macias Unavailable [phone]
--- OUTSIDE RECORDS SUMMARY | 2024-05-20 13:32 | XMS_ITS | Clinical Summary ---
Author Organization [facility] Address [address] [place] [address] Phone Care Team Providers Care Director Part Name Role Phone JIMMY PRICE, SAI Primary Care Provider [phone] JIMMY Andrews, GLENNA Macias Unavailable [phone] Reason for Visit and Chief Complaint visit for: Followup of Chronic Pain theraphy, visit for: Hypertension follow-up, visit for: hyperlipedemia follow up - The Chief Complaint is: Checkup, no concerns Problems Includes: Problems addressed during this encounter and other active Problems Current Visit Onset Date Resolved Date Provider Mickie crowe Status Chronic Renal Failure 06/14/2022 MEGAN MARQUEZ M.D. Active Last Documented On 06/14/2022 11:26AM ; [facility] Note: Unchanged Constipation Drug-induced 02/18/2022 GLENNA MARQUEZ M.D. Active Last Documented On 02/18/2022 11:15AM ; [facility] Note: Unchanged Spinal Stenosis Lumbosacral 05/20/2021 GLENNA MARQUEZ M.D. Active Last Documented On 2 10:56AM ; [facility] Atrial Fibrillation 03/02/2021 GLENNA MARQUEZ M.D. Active Last Documented On 1 11:51AM ; [facility] Note: Unchanged Hyperlipidemia 08/04/2017 GLENNA MARQUEZ M.D. Active Last Documented On 8 10:00AM ; [facility] Note: Unchanged Esophageal Reflux 05/25/2012 GLENNA June Active Last Documented On 4 9:40AM ; [facility] Hyperlipidemia 08/25/2010 GLENNA MARQUEZ M.D. Inactive Last Documented On 5 10:50AM ; [facility] Essential Hypertension 08/25/2010 GLENNA Vieira.DJun Active Last Documented On 4 9:40AM ; [facility] Plan of Treatment - Return to the clinic if condition worsens or new symptoms arise - Last Documented On 08/28/2023 11:24AM ; [facility] - Continue current medication - Last Documented On 08/28/2023 11:24AM ; [facility] - Patient to call if problem develops - Last Documented On 08/28/2023 11:24AM ; [facility] Education and Decision Aids were provided during visit for: Education and counseling Adv ice to have regular exercise regimen Last Documented On 11:19AM ; [facility] Assessments Includes: Assessments from this encounter Findings - I48.91 - Unspecified atrial fibrillation - Last Documented On 08/28/2023 11:24AM ; [facility] - I10 - Essential (primary) hypertension - Last Documented On 08/28/2023 11:24AM ; [facility] - K21.9 - Gastro-esophageal reflux disease without esophagitis - Last Documented On 08/28/2023 11:24AM ; [facility] - K59.03 - Drug induced constipation - Last Documented On 08/28/2023 11:24AM ; [facility] - N18.9 - Chronic kidney disease, unspecified - Last Documented On 08/28/2023 11:24AM ; [facility] - E78.5 - Hyperlipidemia, unspecified - Last Documented On 08/28/2023 11:24AM ; [facility] - M48.07 - Spinal stenosis, lumbosacral region - Last Documented On 08/28/2023 11:24AM ; [facility] Instructions Includes: Instructions from this encounter Education and Decision Aids were provided during visit for: Education and counseling Adv ice to have regular exercise regimen Last Documented On 11:19AM ; [facility] Medical Equipment - Implanted Devices Includes: Current Devices No Medical Equipment Recorded Medications Includes: Medications discussed during this encounter and other current Medications Discontinued / Stopped on this date GLENNA MARQUEZ M.D. on 12/20/2022 Lisinopril 10 MG Oral Tablet Provider: GLENNA MARQUEZ M.D. Diagnosis: Essential (prima ry) hypertension Last Documented On 08/28/2023 11:06AM By SAI MARQUEZ MD ; [facility] Current Medications (continue as prescribed) HYDROcodone-Acetaminophen 7. 5-325 MG Oral Tablet 09/11/2023 Provider: GLENNA MARQUEZ M.D. Diagnosis: Spinal stenosis, lumbosacral region Take one four times a day as needed Last Documented On 09/11/2023 10:36AM By SAI MARQUEZ MD ; [facility] Lisinopril 20 MG Oral Tablet 07/10/2023 Provider: GLENNA MARQUEZ M.D. Diagnosis: Essential (prima ry) hypertension TAKE 1 TABLET BY MOUTH TWICE DAILY Last Documented On 07/10/2023 3:00PM By SAI MARQUEZ MD ; [facility] Eliquis 5 MG Oral Tablet 07/10/2023 Provider: SAI MARQUEZ M.D. Diagnosis: Unspecified atri al fibrillation One tablet twice a day Last Documented On 07/10/2023 2:28PM By SAI MARQUEZ MD ; [facility] Naloxone HCl 4 MG/0.1ML Nasal Liquid 03/29/2023 Provider: GLENNA MARQUEZ M.D. 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 Diagnosis: Hyperlipidemia, unspecified TAKE 1 TABLET BY MOUTH DAILY Last Documented On 03/29/2023 1:37PM By SAI MARQUEZ MD ; [facility] Suspended Medications MiraLax 17 GM/SCOOP Oral Powder 02/22/2023 Provider: GLENNA MARQUEZ M.D. Diagnosis: as directed 1 to scops q day Last Documented On 02/22/2023 8:51AM By GUERDA Beavers LPN ; [facility] Medications Administered Includes: Administered Medications from this encounter No Administered Medications Recorded Vital Signs Includes: Vital Signs from this encounter Vital Name 08/28/2023 10:46A Blood Pressure Sitting (mmHg) 100/60 Pulse Rate-Sitting (bpm) 70 Respiration Rate (breaths/min) 19 Temp-Oral (F) 98.4 Height (in) 68 Weight (lb) 184.2 Body Mass Index 28 Body Surface Area 2 Oxygen Saturation (%) 98 Last Documented: On 08/28/2023 10:50A M ; [facility] Results Includes: Results discussed during this encounter No Results Recorded For Specified Dates History of Present Illness Includes: History of Present Illness from this encounter DAVIDE JUAN is a 78 year old male. Feels ok adviced exercises using prunes for constipation as needed. - Allergy list reviewed - Medication list reviewed Hypertension is controlled on curent meds. Tolerating medications without problems Pain is controlled on curent meds. Tolerating medications without problems. Functional on current medications. Tapering or change in current medication detrimental to patient's condition. Hyperlipedemia is stable on curent meds. Tolerating medications without problems Social History Description Last Updated Amount of sleep 10 12/09/2022 Last Documented On 4 10:45AM ; [facility] DME in home: 06/14/2022 Last Documented On 4 10:45AM ; [facility] DME in home: cane 06/14/2022 Last Documented On 4 10:45AM ; [facility] [PHQ-2] Patient Health Questionnaire 2 i tem total score: 17 (Scale: 0-6) 02/10/2021 Last Documented On 4 10:45AM ; [facility] Difficulty walking 02/10/2021 Last Documented On 4 10:45AM ; [facility] No consumption of alcohol 02/10/2021 Last Documented On 4 10:45AM ; [facility] Not using drugs 02/10/2021 Last Documented On 4 10:45AM ; [facility] Stopped smoking 40 years ago 12/23/2020 Last Documented On 4 10:45AM ; [facility] Current nonsmoker 07/10/2020 Last Documented On 4 10:45AM ; [facility] Former smoker Pt states he quit smoking over 50 yrs ago 07/10/2020 Last Documented On 4 10:45AM ; [facility] Feeling down, depressed, or hopeless in the last 2 weeks? 0 pt Not at all 07/01/2020 Last Documented On 4 10:45AM ; [facility] Lost interest or pleasure in doing thing s was 0 Not at all 07/01/2020 Last Documented On 4 10:45AM ; [facility] Not using alcohol 07/01/2020 Last Documented On 4 10:45AM ; [facility] Non-smoker 11/06/2019 Last Documented On 4 10:45AM ; [facility] No tobacco use prev hx of 50 pack years smoking at young age 0105/08/2019 Last Documented On 4 10:45AM ; [facility] Not using alcohol 11/03/2017 Last Documented On 4 10:45AM ; [facility] Smoking status : Former smoker 8 Last Documented On 4 10:45AM ; [facility] Lives alone 07/23/2012 Last Documented On 4 10:45AM ; [facility] Caffeine use 09/28/2011 Last Documented On 4 10:45AM ; [facility] Single 09/21/2011 Last Documented On 4 10:45AM ; [facility] Retired from work 07/07/2011 Last Documented On 4 10:45AM ; [facility] Abnormal diet TRY TO EAT HARDLY ANY RED MEAT. EAT FISH,VEGETABLES, ETC 08/25/2010 Last Documented On 4 10:45AM ; [facility] Exercise frequency BIKE RIDE 1/2 HR, WAL K 1/2 HR, WEIGHTS 1/2 HR 08/25/2010 Last Documented On 4 10:45AM ; [facility] Occupation [employer] 200608/25/2010 Last Documented On 4 10:45AM ; [facility] Procedures and Surgical History Includes: Procedures from this encounter Procedures Code Diagnosis Performing Provider Service L ocation Service Date use of tobacco assessment performed 1000F Last Documented On 4 10:50AM ; [facility] review of medications documented 1160F Last Documented On 4 10:50AM ; [facility] Surgical History Last Updated No Pacemaker 02/10/2021 Last Documented On 4 10:45AM ; [facility] History of prostate surgery 09/2009 Last Documented On 4 10:45AM ; [facility] Medical History Includes: Medical History addressed during this encounter Description Last Updated Vaccine history 05/30/2023 Last Documented On 4 10:45AM ; [facility] No diagnosis of history of chronic obstr uctive pulmonary disease 12/09/2022 Last Documented On 4 10:45AM ; [facility] No diagnosis of history of diabetes fozia itus 12/09/2022 Last Documented On 4 10:45AM ; [facility] No history of Congestive Heart Failure 0 12/09/2022 Last Documented On 4 10:45AM ; [facility] Surgery prostate and bladder surgery 04/2022 Last Documented On 4 10:45AM ; [facility] Please list all illnesses/co nditions you have been diagnosed with: Cancer. Prostate and Bladder 02/10/2021 Last Documented On 4 10:45AM ; [facility] Back brace 02/10/2021 Last Documented On 4 10:45AM ; [facility] Currently wearing eyeglasses 02/10/2021 Last Documented On 4 10:45AM ; [facility] No Pain Pump 02/10/2021 Last Documented On 4 10:45AM ; [facility] No Spinal cord stimulator 02/10/2021 Last Documented On 4 10:45AM ; [facility] Please list all surgeries: Prostrate marilu e 2009. bladder. sept 201302/10/2021 Last Documented On 4 10:45AM ; [facility] Severe Pain 02/10/2021 Last Documented On 4 10:45AM ; [facility] Uses a cane for support 02/10/2021 Last Documented On 4 10:45AM ; [facility] No Contact with and (Suspected) exposure to COVID-19 07/01/2020 Last Documented On 4 10:45AM ; [facility] No fall 07/01/2020 Last Documented On 4 10:45AM ; [facility] Not using Opioids 07/01/2020 Last Documented On 4 10:45AM ; [facility] Denies a fear of falling. 05/08/2019 Last Documented On 4 10:45AM ; [facility] Has had no fall in the last 12 months. 0 05/08/2019 Last Documented On 4 10:45AM ; [facility] Medication compliance 07/23/2012 Last Documented On 4 10:45AM ; [facility] Taking medication 09/28/2011 Last Documented On 4 10:45AM ; [facility] Prostate Ca, SP Prostatectomy ~ Urology Dr Charlton 07/07/2011 Last Documented On 4 10:45AM ; [facility] History of essential hypertension 2011 Last Documented On 4 10:45AM ; [facility] History of hyperlipidemia 07/07/2011 Last Documented On 4 10:45AM ; [facility] History of hypertension 08/25/2010 Last Documented On 4 10:45AM ; [facility] Family History Includes: Family History addressed during this encounter Description Last Updated Family history of Cancer Breast Cancer 0 12/09/2022 Last Documented On 4 10:45AM ; [facility] Not using Opioids 12/09/2022 Last Documented On 4 10:45AM ; [facility] Fraternal history of family history of i schemic heart disease 02/10/2021 Last Documented On 4 10:45AM ; [facility] Fraternal history of coronary artery dis ease 08/04/2017 Last Documented On 4 10:45AM ; [facility] Family history reviewed - unchanged [facility] e last visit 11/06/2015 Last Documented On 4 10:45AM ; [facility] Fraternal history of cancer 04/29/2015 Last Documented On 4 10:45AM ; [facility] Fraternal history of heart disease 04/29 Last Documented On 4 10:45AM ; [facility] Maternal history of cancer 04/29/2015 Last Documented On 4 10:45AM ; [facility] Family history of cancer 07/07/2011 Last Documented On 4 10:45AM ; [facility] Family history of coronary artery diseas e 07/07/2011 Last Documented On 4 10:45AM ; [facility] Brother 69 years old [place] [place] 8 YEARS AGO 08/25/2010 Last Documented On 4 10:45AM ; [facility] Father 1985 AT AGE 74- PUMA GEHRIG'S TYPE DISEASE 08/25/2010 Last Documented On 4 10:45AM ; [facility] Heart disease 08/25/2010 Last Documented On 4 10:45AM ; [facility] Mother 1995 AT AGE 72- BREAST CANCER 08/25/2010 Last Documented On 4 10:45AM ; [facility] Review of Systems Includes: Review of Systems from this encounter Systemic: Not feeling tired. No fever, no chills, and no edema. Head: No headache. Cardiovascular: No chest pain or discomfort and [...] arthralgias. Neurological: No dizziness and no fainting. Ataxia. Psychological: Fear of falling. Past Medical: No fall in the past 6 months. Mental Status Includes: Mental Status from this encounter Description Oriented to time, place, and person Functional Status Includes: Functional Status from this encounter No Functional Status Recorded Physical Exam Includes: Physical Exam from this encounter Allergies Includes: Active Allergies Substance Type Reaction Onset Date Resolved Date Statu s Gabapentin Intolerance confusion 12/23/2020 Active Last Documented On 4 10:45AM ; [facility] Allergy 12/22/2015 Active Last Documented On 4 10:45AM ; [facility] Encounters Encounter Provider Location Date Check-In Time Check-Out Time Diagnosis CHECK UP GLENNA MARUQEZ M.D. [facility] 08/28/19 24 10:42AM 11:19AM Essential Hypertension, Esophageal Reflux,Hyperl ipidemia,Atri al Fibrillation, Spinal Stenosis Lumbosacral,C onstipation Drug-induced, Chronic Renal Failure Insurance Includes: Active Insurance Policies Plan Name Member ID Group # Subscriber Relationship Effect shannon Dates 1 - MEDICARE PART A CLAIMS/NGS [id number] MARIANNA JUAN Self 2 - [facility] OPTIONS [id number] MARIANNA JUAN Self Clinical Notes Includes: Clinical Notes from this encounter * Progress note Date Encounter Last Documented by 08/28/2023 CHECK UP Last documented on 08/28/2023; 11:24 AM, GLENNA MARQUEZ M.D.; [facility] Active Problems & Conditions - I48.91 - Atrial Fibrillation - N18.9 - Chronic Renal Failure - K59.03 - Constipation Drug-induced - K21.9 - Esophageal Reflux - I10 - Essential Hypertension - E78.5 - Hyperlipidemia - M48.07 - Spinal Stenosis Lumbosacral Chief Complaint The Chief Complaint is: Checkup, no concerns. Reason For Visit Visit for: hyperlipedemia follow up, visit for: Hypertension follow-up, and visit for: Followup of Chronic Pain theraphy. History of Present Illness MARIANNA JUAN is a 78 year old male. Feels ok adviced exercises using prunes for constipation as needed. - Allergy list reviewed - Medication list reviewed Hypertension is controlled on curent meds. Tolerating medications without problems Pain is controlled on curent meds. Tolerating medications without problems. Functional on current medications. Tapering or change in current medication detrimental to patient's condition. Hyperlipedemia is stable on curent meds. Tolerating medications without problems Current Medication - Eliquis 5 MG Oral Tablet One tablet twice a day, 90 days, 0 refills - HYDROcodone-Acetaminophen 7.5-325 MG Oral Tablet Take one four times a day as needed, 28 days, 0 refills - Lisinopril 20 MG Oral Tablet TAKE 1 TABLET [...] / Procedural: No Pacemaker. Medications: Taking medication. Exposure: No Contact with and (Suspected) exposure [...] cane. Work: Retired from work and occupation [employer] 2006. Marital: Single. Functional: Feeling down, depressed, [...] tired. No fever, no chills, and no edema. Head: No headache. Cardiovascular: No chest pain or discomfort and [...] arthralgias. Neurological: No dizziness and no fainting. Ataxia. Psychological: Fear of falling. Past Medical: No fall in the past 6 months. Physical Findings - Vitals taken 08/28/2023 10:46 am BP-Sitting 100/60 mmHg 100 - 120/60 - 80 Pulse Rate-Sitting 70 bpm 50 - 100 Respiration Rate 19 per min 18 - 26 Temp-Oral 98.4 F 96 - 101 Height 68 in 64 - 74 Weight 184 lbs 3.2 oz 121 - 205 Body Mass Index 28 kg/m2 Body Surface Area 2 m2 Oxygen Saturation 98 % 93 - 100 General Appearance: - [...] - M48.07 - Spinal stenosis, lumbosacral region Counseling/Education - Education and counseling Advice to have regular exercise regimen - Clinical summary provided to patient - Plan of care reviewed and agreed to current plan of treatment Reviewed and Discussed lab test results with Patient. Plan StartCited - Other Follow-up Follow up in 3 months EndCited - Return to the clinic if condition worsens or new symptoms arise - Continue current medication - Patient to call if problem develops Practice Management Use of tobacco assessment performed Review of medications documented.
--- NOTE | 2024-05-20 13:33 | ED.BACK ---
HPI - Back Pain/Injury General Chief Complaint: Back Pain/Injury Stated Complaint: back pain Time Seen by Provider: 05/20/24 13:20 Source: patient and EMS Mode of arrival: EMS History of Present Illness HPI Narrative: 79 years old white male came to the ED by ambulance from home with chronic lower back pain For years which is getting worse lately. Patient also reports swelling of the legs, can not use compression stocking because his weak and have no support at home to help him. Patient currently on Hydrocodone 7.5 mg. Patient was referred to pain management physician but he could not do it. was discharged from [facility] few weeks ago Related Data Home Medications ?Medication ?Instructions ?Recorded ?Confirmed ?Last Taken ?Type apixaban 5 mg tablet (Eliquis) 5 mg PO Q12H 05/20/24 Unknown History hydrocodone 5 mg-acetaminophen 325 1 tablet PO Q12H 05/20/24 Unknown History mg tablet lisinopril 20 mg tablet 20 mg PO DAILY 05/20/24 Unknown History pravastatin 20 mg tablet 20 mg PO DAILY 05/20/24 Unknown History Allergies Allergy/AdvReac Type Severity Reaction Status Date / Time No Known Allergies Allergy Verified 05/20/24 13:41 Review of Systems Review of Systems: All systems reviewed & are unremarkable except as noted in HPI and below Exam Narrative: General appearance: Well-developed, well-nourished Skin: Normal color, 2+ edema lower extremity up to the knees bilaterally Head: Normocephalic, nontraumatic Eyes: Clear conjunctiva ENT: Oropharynx normal, ears normal, nose normal Neck: Supple, nontender Chest and respiratory: Airway patent, no respiratory distress, no accessory muscle use Heart: Regular rate/rhythm Abdomen: Soft, nontender, no organomegaly, quiet bowel sounds Vascular: Normal peripheral pulses, normal capillary refill. Musculoskeletal: severe limited range of motion at the lumbar area Neurologic: Alert and oriented ?3, [employer] is normal as tested, no gross motor deficit Course Vital Signs Vital signs: Vital Signs Temperature 36.4 C 05/20/24 13:21 Pulse Rate 87 05/20/24 13:21 Respiratory Rate 17 05/20/24 13:21 Blood Pressure 153/101 H 05/20/24 13:21 Pulse Oximetry 97 05/20/24 13:21 Oxygen Delivery Room Air 05/20/24 13:21 Temperature 36.4 C 05/20/24 13:21 Pulse Rate 87 05/20/24 13:21 Respiratory Rate 17 05/20/24 13:21 Blood Pressure 153/101 H 05/20/24 13:21 Pulse Oximetry 97 05/20/24 13:21 Oxygen Delivery Room Air 05/20/24 13:21 MDM - Back Pain/Injury MDM Narrative Medical decision making narrative: patient came with chronic lower back pain and leg edema. Vital signs are stable Physical examination consistent with severe limited range of motion across the lumbar area and 2+ edema lower extremity bilaterally Differential diagnosis include urinary tract infection, exacerbation of chronic lower back pain, lack of physical activity, dependent edema, electrolyte imbalance, dehydration, bone metastasis. Blood workup today includes CBC, CMP, BnP, troponin showed creatinine 1.6, bNP 1390. Otherwise insignificant Urinalysis showed evidence of infection CT lumbar spine, abdomen and pelvis without IV contrast showed no acute abnormalities Patient requested to be transferred to rehab/longterm because unable to take care of himself. Diagnosis urinary tract infection, SIENNA, inability to managed care of himself. Admit to hospitalist Differential Diagnosis Differential diagnosis: Likely strain of lumbar region, pyelonephritis and discitis Medical Records Attestation: I reviewed the patient's medical records. Lab Data Attestation: I reviewed the patient's lab results. 05/20/24 14:23 05/20/24 14:23 Labs: Lab Results 05/20/24 Range/Units 14:23 WBC 5.8 (4.8-10.8) K/mm3 RBC 3.83 L (4.70-6.10) M/mm3 Hgb 12.3 L (12.4-15.3) g/dL Hct 37.1 (37.0-46.0) % MCV 96.9 (78.0-102.0) fL MCH 32.1 H (27.0-31.0) pg MCHC 33.2 (32-36) g/dL RDW 12.4 (11.6-14.4) % Plt Count 163 (150-420) K/mm3 MPV 10.1 (8.7-11.0) fl Immature Gran % (Auto) 0.3 H (0.0-0.0) % Neut % (Auto) 78.0 H (50.0-70.0) % Lymph % (Auto) 10.8 L (18.0-42.0) % Glades % (Auto) 9.7 (2.0-11.0) % Eos % (Auto) 0.9 L (1.0-6.0) % Baso % (Auto) 0.3 (0.0-1.0) % Lymph # (Auto) 0.62 L (1.10-4.50) K/mm3 Glades # (Auto) 0.56 (0.10-0.90) K/mm3 Eos # (Auto) 0.05 (0.02-0.50) K/mm3 Baso # (Auto) 0.02 (0.00-0.10) K/mm3 Abs Immat Gran (auto) 0.02 H (0.00-0.00) K/mm3 Absolute Neuts (auto) 4.49 (1.70-7.20) K/mm3 Absolute Nucleated RBC 0.00 (0.00-0.00) K/mm3 Nucleated RBC % 0.0 (0-0.0) % PT 11.1 (9.50-12.1) Seconds INR 1.0 APTT 29.3 (23.9-30.70) Sec Sodium 138 (136-145) mmol/L Potassium 4.3 (3.5-5.1) mmol/L Chloride 101 (98-108) mmol/L Carbon Dioxide 26 (21-32) mmol/L Anion Gap 11 (4-12) mmol/L BUN 42 H (7-18) mg/dL Creatinine 1.64 H (0.70-1.30) mg/dL Estim Creat Clear Calc 32 ml/min Estimated GFR 41 L (59 - ) Glucose 125 H (70-99) mg/dL Calculated Osmolality 297 H (285-295) mOsm/kg Lactic Acid 1.1 (0.4-2.0) mmol/L Calcium 9.2 (8.5-10.1) mg/dL Total Bilirubin 0.9 (0.00-1.00) mg/dL AST 21 (15-37) U/L ALT 32 (16-63) U/L Alkaline Phosphatase 85 (46-116) U/L Troponin I 9.4 (0.00-60.4) ng/L C-Reactive Protein < 0.5 (0.0-0.9) mg/dL NT-Pro-B Natriuret Pep 1390 H (0-450) pg/mL Total Protein 7.2 (6.4-8.2) g/dL Albumin 4.1 (3.4-5.0) g/dL Imaging Data Radiologist's impression: Impressions Lumbar Spine CT 05/20/24 14:04 IMPRESSION: 1. Severe lumbar spondylosis. 2. Lumbar dextroscoliosis. Abdomen/Pelvis CT 05/20/24 14:09 IMPRESSION: 1. No etiology for the patient's symptoms. Chest X-Ray 05/20/24 14:31 IMPRESSION: 1. Mild atelectasis at the lung bases. 2. Lung apices excluded. ECG Data EKG #1: ECG completion date: 05/20/24 Critical Care Time Critical Care Time Critical Care Time: No Discharge Plan Discharge Clinical Impression: SIENNA (acute kidney injury), Urinary tract infection Patient Disposition: Still a Patient Condition: Stable Patient Language: Argentine Prescriptions: No Action hydrocodone-acetaminophen 5-325 mg tablet 1 tablet PO Q12H lisinopril 20 mg tablet 20 mg PO DAILY pravastatin 20 mg tablet 20 mg PO DAILY Eliquis 5 mg tablet 5 mg PO Q12H Follow-up/Referrals: UNKNOWN,DOCTOR [Non-Staff] -
[2024-05-20 14:00] VITALS: BP 155/98; PULSE 80; O2SAT 98
--- OUTSIDE RECORDS SUMMARY | 2024-05-20 14:05 | XMS_ITS | Clinical Summary ---
Author Organization [facility] Address [address] [place] [address] Phone Care Team Providers Care Freight Car Builder Name Role Phone JIMMY PRICE, SAI Primary Care Provider [phone] JIMMY Andrews, GLENNA Macias Unavailable [phone] Reason for Visit and Chief Complaint visit [...] Active Last Documented On 06/14/2022 11:26AM ; [facility] Note: Unchanged Constipation Drug-induced 02/18/2022 GLENNA MARQUEZ M.D. Active Last Documented On 02/18/2022 11:15AM ; [facility] Note: Unchanged Spinal Stenosis Lumbosacral 05/20/2021 GLENNA MARQUEZ M.D. Active Last Documented On 2 10:56AM ; [facility] Atrial Fibrillation 03/02/2021 GLENNA MARQUEZ M.D. Active Last Documented On 1 11:51AM ; [facility] Note: Unchanged Hyperlipidemia 08/04/2017 GLENNA MARQUEZ M.D. Active Last Documented On 8 10:00AM ; [facility] Note: Unchanged Esophageal Reflux 05/25/2012 GLENNA June Active Last Documented On 4 9:40AM ; [facility] Hyperlipidemia 08/25/2010 GLENNA MARQUEZ M.D. Inactive Last Documented On 5 10:50AM ; [facility] Essential Hypertension 08/25/2010 GLENNA WHEELER M.D. Active Last Documented On 4 9:40AM ; [facility] Plan of Treatment - Monitor Blood Pressure at home - Last Documented On 05/30/2023 11:25AM ; [facility] - Return to the clinic if condition worsens or new symptoms arise - Last Documented On 05/30/2023 11:25AM ; [facility] - Continue current medication - Last Documented On 05/30/2023 11:25AM ; [facility] - Modify drug dosage Lisinopril to 20 mg 2 x a day - Last Documented On 05/30/2023 11:25AM ; [facility] - Patient to call if problem develops - Last Documented On 05/30/2023 11:25AM ; [facility] Assessments Includes: Assessments from this encounter Findings - I48.91 - Unspecified atrial fibrillation - Last Documented On 05/30/2023 11:25AM ; [facility] - I10 - Essential (primary) hypertension - Last Documented On 05/30/2023 11:25AM ; [facility] - K21.9 - Gastro-esophageal reflux disease without esophagitis - Last Documented On 05/30/2023 11:25AM ; [facility] - K59.03 - Drug induced constipation - Last Documented On 05/30/2023 11:25AM ; [facility] - N18.9 - Chronic kidney disease, unspecified - Last Documented On 05/30/2023 11:25AM ; [facility] - E78.5 - Hyperlipidemia, unspecified - Last Documented On 05/30/2023 11:25AM ; [facility] - M48.07 - Spinal stenosis, lumbosacral region - Last Documented On 05/30/2023 11:25AM ; [facility] Medical Equipment - Implanted Devices Includes: Current Devices No Medical Equipment Recorded Medications Includes: Medications discussed during this encounter and other current Medications Discontinued / Stopped on this date GLENNA MARQUEZ M.D. on 11/17/2022 Movantik 25 MG Oral Tablet Provider: Atul MARQUEZ M.D. Diagnosis: Drug induced con stipation Last Documented On 05/30/2023 11:18AM By SAI MARQUEZ MD ; [facility] New / Renewed during this visit GLENNA MARQUEZ M.D. on 05/30/2023 Lisinopril 20 MG Oral Tablet Provider: GLENNA MARQUEZ M.D. 90 day supply: 180 tablet, 0 refills Diagnosis: Essential (primary) hypertension One tablet twice a day Pharmacy: [address] [phone] - Last Documented On 07/10/2023 2:02PM By SAI MARQUEZ MD ; [facility] Current Medications (continue as prescribed) HYDROcodone-Acetaminophen 7. 5-325 MG Oral Tablet 09/11/2023 Provider: GLENNA MARQUEZ M.D. Diagnosis: Spinal stenosis, lumbosacral region Take one four times a day as needed Last Documented On 09/11/2023 10:36AM By SAI MARQUEZ MD ; [facility] Lisinopril 20 MG Oral Tablet 07/10/2023 Provider: GLENNA MARQUEZ M.D. Diagnosis: Essential (prima ry) hypertension TAKE 1 TABLET BY MOUTH TWICE DAILY Last Documented On 07/10/2023 3:00PM By SAI MARQUEZ MD ; [facility] Eliquis 5 MG Oral Tablet 07/10/2023 Provider: SAI MARQUEZ M.D. Diagnosis: Unspecified atri al fibrillation One tablet twice a day Last Documented On 07/10/2023 2:28PM By SAI MARQUEZ MD ; [facility] Naloxone HCl 4 MG/0.1ML Nasal Liquid 03/29/2023 Provider: GLENNA MARQUEZ M.D. Diagnosis: assisted (curre nt) use of opiate analgesic as directed 4 mg nasally as needed Last Documented On 03/29/2023 11:32AM By SAI MARQUEZ MD ; [facility] Pravastatin Sodium 20 MG Oral Tablet 03/29/2023 Provider: GLENNA MARQUEZ M.D. Diagnosis: Hyperlipidemia, unspecified TAKE 1 TABLET BY MOUTH DAILY Last Documented On 03/29/2023 1:37PM By SAI MARQUEZ MD ; [facility] Suspended Medications MiraLax 17 GM/SCOOP Oral Powder 02/22/2023 Provider: GLENNA MARQUEZ M.D. Diagnosis: as directed 1 to scops q day Last Documented On 02/22/2023 8:51AM By GUERDA Beavers LPN ; [facility] Medications Administered Includes: Administered Medications from [...] Last Documented: On 05/30/2023 11:05A M ; [facility] Results Includes: Results discussed during this encounter CBC WITH DIFF [facility] La boratory Ordered by GLENNA Coronel on 05/11/2023 [address] [facility], [place], [address] Collected: 05/26/2023 Report ed: 05/26/2023 11:17 tel: Last Documented On 4 12:04PM ; [facility] Reviewed by GLENNA MARQUEZ M.D. on 05/26/2023; All test results are final unless otherwise noted. ALC 1.2 None Last Documented On 4 11:58AM ; [facility] Note: Responsible Observer: (HRG) ANC 4.3 None Last Documented On 4 11:58AM ; [facility] Note: Responsible Observer: (HRG) BASO# 0.02 th/uL (0.00 - 0.20) None Last Documented On 4 11:58AM ; [facility] Note: Responsible Observer: (HRG) BASO% 0.3 % (0.0 - 2.0) None Last Documented On 4 11:58AM ; [facility] Note: Responsible Observer: (HRG) CBC WITH DIFF See Note None Last Documented On 4 11:58AM ; [facility] Note: CBC (COMPLETE BLOOD COUNT)Responsi ble Observer: (HRG) DIFF (Y/N) NO None Last Documented On 4 11:58AM ; [facility] Note: Responsible Observer: (HRG) EOS# 0.23 th/uL (0.00 - 0.45) None Last Documented On 4 11:58AM ; [facility] Note: Responsible Observer: (HRG) EOS% 3.6 % (0.0 - 9.0) None Last Documented On 4 11:58AM ; [facility] Note: Responsible Observer: (HRG) HCT 38.6 % (40.0 - 54.0) L (Low) Last Documented On 4 11:58AM ; [facility] Note: Responsible Observer: (HRG) HGB 12.9 g/dL (13.5 - 17.5) L (Low) Last Documented On 4 11:58AM ; [facility] Note: Responsible Observer: (HRG) IG# 0.04 th/ul (0.00 - 0.10) None Last Documented On 4 11:58AM ; [facility] Note: Responsible Observer: (HRG) IG% 0.6 % (0.0 - 0.5) H (High) Last Documented On 4 11:58AM ; [facility] Note: Responsible Observer: (HRG) LYMPH# 1.19 th/uL (1.00 - 4.80) None Last Documented On 4 11:58AM ; [facility] Note: Responsible Observer: (HRG) LYMPH% 18.7 % (14.0 - 45.0) None Last Documented On 4 11:58AM ; [facility] Note: Responsible Observer: (HRG) MCH 32.9 pg (25.0 - 35.0) None Last Documented On 4 11:58AM ; [facility] Note: Responsible Observer: (HRG) MCHC 33.4 g/dL (31.0 - 36.0) None Last Documented On 4 11:58AM ; [facility] Note: Responsible Observer: (HRG) MCV 98.5 fl (80.0 - 100) None Last Documented On 4 11:58AM ; [facility] Note: Responsible Observer: (HRG) MONO# 0.64 th/uL (0.00 - 0.80) None Last Documented On 4 11:58AM ; [facility] Note: Responsible Observer: (HRG) MONO% 10.1 % (1.0 - 10.0) H (High) Last Documented On 4 11:58AM ; [facility] Note: Responsible Observer: (HRG) MPV 12.7 fl (6.0 - 11.0) H (High) Last Documented On 4 11:58AM ; [facility] Note: Responsible Observer: (HRG) NEUT# 4.24 th/uL None Last Documented On 4 11:58AM ; [facility] Note: Responsible Observer: (HRG) NEUT% 66.7 % (45.0 - 76.0) None Last Documented On 4 11:58AM ; [facility] Note: Responsible Observer: (HRG) NRBC% 0.0 % (0.0 - 0.0) None Last Documented On 4 11:58AM ; [facility] Note: Responsible Observer: (HRG) PLT 141 th/uL (150 - 400) L (Low) Last Documented On 4 11:58AM ; [facility] Note: Responsible Observer: (HRG) RBC 3.92 mil/uL (4.50 - 5.90) L (Low) Last Documented On 4 11:58AM ; [facility] Note: Responsible Observer: (HRG) RDW 11.7 % (11.0 - 16.0) None Last Documented On 4 11:58AM ; [facility] Note: Responsible Observer: (HRG) WBC 6.4 th/uL (4.5 - 11.0) None Last Documented On 4 11:58AM ; [facility] Note: Responsible Observer: (HRG) BMP [facility] La boratory Ordered by GLENNA Coronel on 05/11/2023 [address] [facility], [place], [address] Collected: 05/26/2023 Report ed: 05/26/2023 11:34 tel: Last Documented On 4 12:04PM ; [facility] Reviewed by GLENNA MARQUEZ M.D. on 05/26/2023; All test results are final unless otherwise noted. AGE 78 YEARS None Last Documented On 4 11:58AM ; [facility] Note: Responsible Observer: (APR) ANION GAP 14.3 mmol/L (8.0 - 16.0) None Last Documented On 4 11:58AM ; [facility] Note: eGFR INTERPRETATION AGE AVG GFR [...] None Last Documented On 4 11:58AM ; [facility] Note: BASIC METABOLIC PANELResponsible O bserver: (APR) BUN 24 mg/dL (9 - 20) H (High) Last Documented On 4 11:58AM ; [facility] Note: Responsible Observer: (APR) CALCIUM 9.2 mg/dL (8.9 - 10.0) None Last Documented On 4 11:58AM ; [facility] Note: Responsible Observer: (APR) CHLORIDE 105 mmol/L (98 - 107) None Last Documented On 4 11:58AM ; [facility] Note: Responsible Observer: (APR) CREATININE 1.4 mg/dL (0.8 - 1.5) None Last Documented On 4 11:58AM ; [facility] Note: Responsible Observer: (APR) eGFR. 51 mL/min None Last Documented On 4 11:58AM ; [facility] Note: Responsible Observer: (APR) GLUCOSE 86 mg/dL (70 - 105) None Last Documented On 4 11:58AM ; [facility] Note: Responsible Observer: (APR) POTASSIUM 4.3 mmol/L (3.6 - 5.0) None Last Documented On 4 11:58AM ; [facility] Note: Responsible Observer: (APR) SODIUM 139 mmol/L (137 - 145) None Last Documented On 4 11:58AM ; [facility] Note: Responsible Observer: (APR) TCO2 24.0 mmol/L (22.0 - 30.0) None Last Documented On 4 11:58AM ; [facility] Note: Responsible Observer: (APR) History [...] 12/09/2022 Last Documented On 4 11:01AM ; [facility] DME in home: 06/14/2022 Last Documented On 4 11:01AM ; [facility] DME in home: cane 06/14/2022 Last Documented On 4 11:01AM ; [facility] [PHQ-2] Patient Health Questionnaire 2 i tem total score: 17 (Scale: 0-6) 02/10/2021 Last Documented On 4 11:01AM ; [facility] Difficulty walking 02/10/2021 Last Documented On 4 11:01AM ; [facility] No consumption of alcohol 02/10/2021 Last Documented On 4 11:01AM ; [facility] Not using drugs 02/10/2021 Last Documented On 4 11:01AM ; [facility] Stopped smoking 40 years ago 12/23/2020 Last Documented On 4 11:01AM ; [facility] Current nonsmoker 07/10/2020 Last Documented On 4 11:01AM ; [facility] Former smoker Pt states he quit smoking over 50 yrs ago 07/10/2020 Last Documented On 4 11:01AM ; [facility] Feeling down, depressed, or hopeless in the last 2 weeks? 0 pt Not at all 07/01/2020 Last Documented On 4 11:01AM ; [facility] Lost interest or pleasure in doing thing s was 0 Not at all 07/01/2020 Last Documented On 4 11:01AM ; [facility] Not using alcohol 07/01/2020 Last Documented On 4 11:01AM ; [facility] Non-smoker 11/06/2019 Last Documented On 4 11:01AM ; [facility] No tobacco use prev hx of 50 pack years smoking at young age 0105/08/2019 Last Documented On 4 11:01AM ; [facility] Not using alcohol 11/03/2017 Last Documented On 4 11:01AM ; [facility] Smoking status : Former smoker 8 Last Documented On 4 11:01AM ; [facility] Lives alone 07/23/2012 Last Documented On 4 11:01AM ; [facility] Caffeine use 09/28/2011 Last Documented On 4 11:01AM ; [facility] Single 09/21/2011 Last Documented On 4 11:01AM ; [facility] Retired from work 07/07/2011 Last Documented On 4 11:01AM ; [facility] Abnormal diet TRY TO EAT HARDLY ANY RED MEAT. EAT FISH,VEGETABLES, ETC 08/25/2010 Last Documented On 4 11:01AM ; [facility] Exercise frequency BIKE RIDE 1/2 HR, WA LK 1/2 HR, WEIGHTS 1/2 HR 08/25/2010 Last Documented On 4 11:01AM ; [facility] Occupation [employer] 200608/25/2010 Last Documented On 4 11:01AM ; [facility] Procedures and Surgical History Includes: Procedures from this encounter Procedures Code Diagnosis Performing Provider Service L ocation Service Date use of tobacco assessment performed 1000F Last Documented On 4 11:06AM ; [facility] review of medications documented 1160F Last Documented On 4 11:06AM ; [facility] Surgical History Last Updated No Pacemaker 02/10/2021 Last Documented On 4 11:01AM ; [facility] History of prostate surgery 09/2009 Last Documented On 4 11:01AM ; [facility] Medical History Includes: Medical History addressed during this encounter Description Last Updated Vaccine history 05/30/2023 Last Documented On 4 11:25AM ; [facility] Diastolic blood pressure 85 mmHg 023 Last Documented On 4 11:01AM ; [facility] Systolic blood pressure 150 mmHg 023 Last Documented On 4 11:01AM ; [facility] No diagnosis of history of chronic obstr uctive pulmonary disease 12/09/2022 Last Documented On 4 11:01AM ; [facility] No diagnosis of history of diabetes fozia itus 12/09/2022 Last Documented On 4 11:01AM ; [facility] No history of Congestive Heart Failure 0 12/09/2022 Last Documented On 4 11:01AM ; [facility] Surgery prostate and bladder surgery 04/2022 Last Documented On 4 11:01AM ; [facility] Please list all illnesses/co nditions you have been diagnosed with: Cancer. Prostate and Bladder 02/10/2021 Last Documented On 4 11:01AM ; [facility] Back brace 02/10/2021 Last Documented On 4 11:01AM ; [facility] Currently wearing eyeglasses 02/10/2021 Last Documented On 4 11:01AM ; [facility] No Pain Pump 02/10/2021 Last Documented On 4 11:01AM ; [facility] No Spinal cord stimulator 02/10/2021 Last Documented On 4 11:01AM ; [facility] Please list all surgeries: Prostrate marilu e 2009. bladder. dec 2013 02/10/2021 Last Documented On 4 11:01AM ; [facility] Severe Pain 02/10/2021 Last Documented On 4 11:01AM ; [facility] Uses a cane for support 02/10/2021 Last Documented On 4 11:01AM ; [facility] No Contact with and (Suspected) exposure to COVID-19 07/01/2020 Last Documented On 4 11:01AM ; [facility] No fall 07/01/2020 Last Documented On 4 11:01AM ; [facility] Not using Opioids 07/01/2020 Last Documented On 4 11:01AM ; [facility] Denies a fear of falling. 05/08/2019 Last Documented On 4 11:01AM ; [facility] Has had no fall in the last 12 months. 0 05/08/2019 Last Documented On 4 11:01AM ; [facility] Medication compliance 07/23/2012 Last Documented On 4 11:01AM ; [facility] Taking medication 09/28/2011 Last Documented On 4 11:01AM ; [facility] Prostate Ca, SP Prostatectomy ~ Urology Dr Charlton 07/07/2011 Last Documented On 4 11:01AM ; [facility] History of essential hypertension 2011 Last Documented On 4 11:01AM ; [facility] History of hyperlipidemia 07/07/2011 Last Documented On 4 11:01AM ; [facility] History of hypertension 08/25/2010 Last Documented On 4 11:01AM ; [facility] Family History Includes: Family History addressed during this encounter Description Last Updated Family history of Cancer Breast Cancer 0 12/09/2022 Last Documented On 4 11:01AM ; [facility] Not using Opioids 12/09/2022 Last Documented On 4 11:01AM ; [facility] Fraternal history of family history of i schemic heart disease 02/10/2021 Last Documented On 4 11:01AM ; [facility] Fraternal history of coronary artery dis ease 08/04/2017 Last Documented On 4 11:01AM ; [facility] Family history reviewed - unchanged sin e last visit 11/06/2015 Last Documented On 4 11:01AM ; [facility] Fraternal history of cancer 04/29/2015 Last Documented On 4 11:01AM ; [facility] Fraternal history of heart disease 04/29 Last Documented On 4 11:01AM ; [facility] Maternal history of cancer 04/29/2015 Last Documented On 4 11:01AM ; [facility] Family history of cancer 07/07/2011 Last Documented On 4 11:01AM ; [facility] Family history of coronary artery diseas e 07/07/2011 Last Documented On 4 11:01AM ; [facility] Brother 69 years old [place] 8 YEARS AGO 08/25/2010 Last Documented On 4 11:01AM ; [facility] Father 1985 AT AGE 74- PUMA GEHRIG'S TYPE DISEASE 08/25/2010 Last Documented On 4 11:01AM ; [facility] Heart disease 08/25/2010 Last Documented On 4 11:01AM ; [facility] Mother 1995 AT AGE 72- BREAST CANCER 08/25/2010 Last Documented On 4 11:01AM ; [facility] Review of Systems Includes: Review of [...] Active Last Documented On 4 10:45AM ; [facility] Allergy 12/22/2015 Active Last Documented On 4 10:45AM ; [facility] Encounters Encounter Provider Location Date Check-In Time Check-Out Time Diagnosis CHECK UP GLENNA MARQUEZ M.D. [facility] 05/30/19 24 10:57AM 11:15AM Essential Hypertension, Esophageal Reflux,Hyperl ipidemia,Atri al Fibrillation, Spinal Stenosis Lumbosacral,C onstipation Drug-induced, Chronic Renal Failure Insurance Includes: Active Insurance Policies Plan Name Member ID Group # Subscriber Relationship Effect shannon Dates 1 - MEDICARE PART A CLAIMS/NGS [id number] [facility] [employer] [facility] 2 - [facility] OPTIONS [id number] [facility] [employer] [facility] Clinical Notes Includes: Clinical Notes from this encounter * Progress note Date Encounter Last Documented by 05/30/2023 CHECK UP Last documented on 05/30/2023; 11:25 AM, GLENNA MARQUEZ M.D.; [facility] Active Problems & Conditions - [...] Work: Retired from work and occupation [employer] 2006. Marital: Single. Functional: Feeling down, depressed, [...]
--- OUTSIDE RECORDS SUMMARY | 2024-05-20 14:07 | XMS_ITS | Clinical Summary ---
Author Organization [facility] Address [address] [place] [address] Phone Care Team Providers Care Bagging Machine Operator Name Role Phone JIMMY PRICE, SAI Primary Care Provider [phone] JIMMY Andrews, GLENNA Macias Unavailable [phone] Reason for Visit and Chief Complaint CAROTID ULTRASOUND Problems Includes: Problems addressed during this encounter and other active Problems All Visits Onset Date Resolved Date Provider Condition S tatus Chronic Renal Failure 06/14/2022 MEGAN MARQUEZ M.D. Active Last Documented On 06/14/2022 11:26AM ; [facility] Note: Unchanged Constipation Drug-induced 02/18/2022 GLENNA MARQUEZ M.D. Active Last Documented On 02/18/2022 11:15AM ; [facility] Note: Unchanged Spinal Stenosis Lumbosacral 05/20/2021 GLENNA MARQUEZ M.D. Active Last Documented On 2 10:56AM ; [facility] Atrial Fibrillation 03/02/2021 GLENNA MARQUEZ M.D. Active Last Documented On 1 11:51AM ; [facility] Note: Unchanged Hyperlipidemia 08/04/2017 GLENNA MARQUEZ M.D. Active Last Documented On 8 10:00AM ; [facility] Note: Unchanged Esophageal Reflux 05/25/2012 GLENNA June Active Last Documented On 4 9:40AM ; [facility] Essential Hypertension 08/25/2010 GLENNA WHEELER M.D. Active Last Documented On 4 9:40AM ; [facility] Plan of Treatment No Plan [...] 09/11/2023 10:36AM By SAI MARQUEZ MD ; [facility] Lisinopril 20 MG Oral Tablet 07/10/2023 Provider: GLENNA MARQUEZ M.D. Diagnosis: Essential (prima ry) hypertension TAKE 1 TABLET BY MOUTH TWICE DAILY Last Documented On 07/10/2023 3:00PM By SAI MARQUEZ MD ; [facility] Eliquis 5 MG Oral Tablet 07/10/2023 Provider: SAI MARQUEZ M.D. Diagnosis: Unspecified atri al fibrillation One tablet twice a day Last Documented On 07/10/2023 2:28PM By SAI MARQUEZ MD ; [facility] Naloxone HCl 4 MG/0.1ML Nasal Liquid 03/29/2023 Provider: GLENNA MARQUEZ M.D. Diagnosis: assisted (curre nt) use of opiate analgesic as directed 4 mg nasally as needed Last Documented On 03/29/2023 11:32AM By SAI MARQUEZ MD ; [facility] Pravastatin Sodium 20 MG Oral Tablet 03/29/2023 Provider: GLENNA MARQUEZ M.D. Diagnosis: Hyperlipidemia, unspecified TAKE 1 TABLET BY MOUTH DAILY Last Documented On 03/29/2023 1:37PM By SAI MARQUEZ MD ; [facility] Suspended Medications MiraLax 17 GM/SCOOP Oral Powder 02/22/2023 Provider: GLENNA MARQUEZ M.D. Diagnosis: as directed 1 to scops q day Last Documented On 02/22/2023 8:51AM By GUERDA Beavers LPN ; [facility] Medications Administered Includes: Administered Medications [...] OF EXTRACRANIAL ARTERIES; COMP BRAXTON (Professional Comp.) 57460 Occlusion and stenosis of bilateral carotid arteries ANNAMARIA JONES MD [facility] OP HRT 09/18/2023 Last Documented On 4 10:18AM ; [facility] Medical History Includes: Medical History addressed during [...] Active Last Documented On 4 10:45AM ; [facility] Allergy 12/22/2015 Active Last Documented On 4 10:45AM ; [facility] Encounters Encounter Provider Location Date Check-In Time Check-Out Time Diagnosis CAROTID ULTRASOUND ANNAMARIA JONES MD [facility] OP [facility] 09/18/19 24 10:41AM 11:28AM Insurance Includes: Active Insurance Policies Plan Name Member ID Group # Subscriber Relationship Effect shannon Dates 1 - MEDICARE PART A CLAIMS/NGS [id number] MARIANNA Salas 2 - [facility] OPTIONS [id number] MARIANNA Salas Clinical Notes Includes: Clinical Notes from this encounter No Clinical Notes Recorded
--- OUTSIDE RECORDS SUMMARY | 2024-05-20 14:07 | XMS_ITS | Clinical Summary ---
Author Organization [facility] Address [address] [place] [address] Phone Care Team Providers Care Senior Account Executive Name Role Phone JMIMY PRICE, SAI Primary Care Provider [phone] JIMMY Andrews, GLENNA Macias Unavailable [phone] Reason for Visit and Chief Complaint [facility] CENTER CHECK UP Problems Includes: Problems addressed during this encounter and other active Problems All Visits Onset Date Resolved Date Provider Condition S tatus Chronic Renal Failure 06/14/2022 MEGAN MARQUEZ M.D. Active Last Documented On 06/14/2022 11:26AM ; [facility] Note: Unchanged Constipation Drug-induced 02/18/2022 GLENNA MARQUEZ M.D. Active Last Documented On 02/18/2022 11:15AM ; [facility] Note: Unchanged Spinal Stenosis Lumbosacral 05/20/2021 GLENNA MARQUEZ M.D. Active Last Documented On 2 10:56AM ; [facility] Atrial Fibrillation 03/02/2021 GLENNA MARQUEZ M.D. Active Last Documented On 1 11:51AM ; [facility] Note: Unchanged Hyperlipidemia 08/04/2017 GLENNA MARQUEZ M.D. Active Last Documented On 8 10:00AM ; [facility] Note: Unchanged Esophageal Reflux 05/25/2012 GLENNA June Active Last Documented On 4 9:40AM ; [facility] Essential Hypertension 08/25/2010 GLENNA WHEELER M.D. Active Last Documented On 4 9:40AM ; [facility] Plan of Treatment No Plan [...] By SAI MARQUEZ MD ; [facility] Lisinopril 20 MG Oral Tablet 07/10/2023 Provider: GLENNA MARQUEZ M.D. Diagnosis: Essential (prima ry) hypertension TAKE 1 TABLET BY MOUTH TWICE DAILY Last Documented On 07/10/2023 3:00PM By SAI MARQUEZ MD ; [facility] Eliquis 5 MG Oral Tablet 07/10/2023 Provider: SAI MARQUEZ M.D. Diagnosis: Unspecified atri al fibrillation One tablet twice a day Last Documented On 07/10/2023 2:28PM By SAI MARQUEZ MD ; [facility] Naloxone HCl 4 MG/0.1ML Nasal Liquid 03/29/2023 Provider: GLENNA MARQUEZ M.D. Diagnosis: longterm (curre nt) use of opiate analgesic as directed 4 mg nasally as needed Last Documented On 03/29/2023 11:32AM By SAI MARQUEZ MD ; [facility] Pravastatin Sodium 20 MG Oral Tablet 03/29/2023 Provider: GLENNA MARQUEZ M.D. Diagnosis: Hyperlipidemia, unspecified TAKE 1 TABLET BY MOUTH DAILY Last Documented On 03/29/2023 1:37PM By SAI MARQUEZ MD ; [facility] Suspended Medications MiraLax 17 GM/SCOOP Oral Powder 02/22/2023 Provider: GLENNA MARQUEZ M.D. Diagnosis: as directed 1 to scops q day Last Documented On 02/22/2023 8:51AM By GUERDA Beavers LPN ; [facility] Medications Administered Includes: [...] Active Last Documented On 4 10:45AM ; [facility] Allergy 12/22/2015 Active Last Documented On 4 10:45AM ; [facility] Encounters Encounter Provider Location Date Check-In Time Check- Out Time Diagnosis HEART CENTER CHECK UP CALOS JONES MD [facility] 4 11:30AM 11:53AM Insurance Includes: Active Insurance Policies Plan Name Member ID Group # Subscriber Relationship Effect shannon Dates 1 - MEDICARE PART A CLAIMS/NGS [id number] MARIANNA Salas 2 - [facility] HEALTH CARE OPTIONS [id number] MARIANNA Salas Clinical Notes Includes: Clinical Notes from this encounter No Clinical Notes Recorded
--- OUTSIDE RECORDS SUMMARY | 2024-05-20 14:07 | XMS_ITS ---
Care Plan - [facility] Created on: May 20, 2024 DRAKEMARIANNA : 1945 Sex: Male Author Organization [facility] Address [address] [place] [address] Phone Care Team Providers Care Metallurgical Laboratory Assistant Name Role Phone JIMMY PRICE, SAI Primary Care Provider [phone] JIMMY Andrews, GLENNA Macias Unavailable [phone]
--- OUTSIDE RECORDS SUMMARY | 2024-05-20 14:07 | XMS_ITS | Clinical Summary ---
Author Organization [facility] Address [address] [place] [address] Phone Care Team Providers Care Analysis Reporting Developer Name Role Phone JIMMY PRICE, SAI Primary Care Provider [phone] JIMMY Andrews, GLENNA Macias Unavailable [phone] Reason for Visit and Chief Complaint ECHOCARDIOGRAM Problems Includes: Problems addressed during this encounter and other active Problems All Visits Onset Date Resolved Date Provider Condition S tatus Chronic Renal Failure 06/14/2022 MEGAN MARQUEZ M.D. Active Last Documented On 06/14/2022 11:26AM ; [facility] Note: Unchanged Constipation Drug-induced 02/18/2022 GLENNA MARQUEZ M.D. Active Last Documented On 02/18/2022 11:15AM ; [facility] Note: Unchanged Spinal Stenosis Lumbosacral 05/20/2021 GLENNA MARQUEZ M.D. Active Last Documented On 2 10:56AM ; [facility] Atrial Fibrillation 03/02/2021 GLENNA MARQUEZ M.D. Active Last Documented On 1 11:51AM ; [facility] Note: Unchanged Hyperlipidemia 08/04/2017 GLENNA MARQUEZ M.D. Active Last Documented On 8 10:00AM ; [facility] Note: Unchanged Esophageal Reflux 05/25/2012 GLENNA June Active Last Documented On 4 9:40AM ; [facility] Essential Hypertension 08/25/2010 GLENNA WHEELER M.D. Active Last Documented On 4 9:40AM ; [facility] [...] 09/11/2023 10:36AM By SAI MARQUEZ MD ; [facility] Lisinopril 20 MG Oral Tablet 07/10/2023 Provider: GLENNA MARQUEZ M.D. Diagnosis: Essential (prima ry) hypertension TAKE 1 TABLET BY MOUTH TWICE DAILY Last Documented On 07/10/2023 3:00PM By SAI MARQUEZ MD ; [facility] Eliquis 5 MG Oral Tablet 07/10/2023 Provider: SAI MARQUEZ M.D. Diagnosis: Unspecified atri al fibrillation One tablet twice a day Last Documented On 07/10/2023 2:28PM By SAI MARQUEZ MD ; [facility] Naloxone HCl 4 MG/0.1ML Nasal Liquid 03/29/2023 Provider: GLENNA MARQUEZ M.D. Diagnosis: longterm (curre nt) use of opiate analgesic as directed 4 mg nasally as needed Last Documented On 03/29/2023 11:32AM By SAI MARQUEZ MD ; [facility] Pravastatin Sodium 20 MG Oral Tablet 03/29/2023 Provider: GLENNA MARQUEZ M.D. Diagnosis: Hyperlipidemia, unspecified TAKE 1 TABLET BY MOUTH DAILY Last Documented On 03/29/2023 1:37PM By SAI MARQUEZ MD ; [facility] Suspended Medications MiraLax 17 GM/SCOOP Oral Powder 02/22/2023 Provider: GLENNA MARQUEZ M.D. Diagnosis: as directed 1 to scops q day Last Documented On 02/22/2023 8:51AM By GUERDA Beavers LPN ; [facility] Medications Administered Includes: [...] Date ECHOCARDIOGRAPHY- TRANSTHORAC W/ DOPPLER (Professional Comp.) 74082 Other persistent atrial fibrillation, Essential (primary) hypertension, Mixed hyperlipidemia, Rheumatic disorders of both mitral and tricuspid valves CALOS JONES MD [facility]- 08/25/2023 Last Documented On 4 1:23PM ; [facility] ELECTROCARDIAGRAM READING FEE (EKG) (DISTINCT PROCEDURAL SERVICE DIFFERENT SITE) 89854 Other persistent atrial fibrillation, Essential (primary) hypertension CALOS JONES MD [facility]- 08/25/2023 Last Documented On 4 1:23PM ; [facility] Medical History Includes: Medical History addressed during [...] Active Last Documented On 4 10:45AM ; [facility] Allergy 12/22/2015 Active Last Documented On 4 10:45AM ; [facility] Encounters Encounter Provider Location Date Check-In Time Check-Out Time Diagnosis ECHOCARDIOGRAM CALOS JONES MD [facility] 4 10:40AM 11:26AM Insurance Includes: Active Insurance Policies Plan Name Member ID Group # Subscriber Relationship Effect shannon Dates 1 - MEDICARE PART A CLAIMS/NGS [id number] MARIANNA Salas 2 - [facility] HEALTH CARE OPTIONS [id number] MARIANNA Salas Clinical Notes Includes: Clinical Notes from this encounter No Clinical Notes Recorded
--- OUTSIDE RECORDS SUMMARY | 2024-05-20 14:07 | XMS_ITS | Clinical Summary ---
Author Organization [facility] Address [address] [place] [address] Phone Care Team Providers Care Floorperson Name Role Phone JIMMY PRICE, SAI Primary Care Provider [phone] JIMMY Andrews, GLENNA Macias Unavailable [phone] Reason for Visit and Chief Complaint visit [...] Active Last Documented On 06/14/2022 11:26AM ; [facility] Note: Unchanged Constipation Drug-induced 02/18/2022 GLENNA MARQUEZ M.D. Active Last Documented On 02/18/2022 11:15AM ; [facility] Note: Unchanged Spinal Stenosis Lumbosacral 05/20/2021 GLENNA MARQUEZ M.D. Active Last Documented On 2 10:56AM ; [facility] Atrial Fibrillation 03/02/2021 GLENNA MARQUEZ M.D. Active Last Documented On 1 11:51AM ; [facility] Note: Unchanged Hyperlipidemia 08/04/2017 GLENNA MARQUEZ M.D. Active Last Documented On 8 10:00AM ; [facility] Note: Unchanged Esophageal Reflux 05/25/2012 GLENNA June Active Last Documented On 4 9:40AM ; [facility] Hyperlipidemia 08/25/2010 GLENNA MARQUEZ M.D. Inactive Last Documented On 5 10:50AM ; [facility] Essential Hypertension 08/25/2010 GLENNA Vieira.DJun Active Last Documented On 4 9:40AM ; [facility] Plan of Treatment - Return to the clinic if condition worsens or new symptoms arise - Last Documented On 08/28/2023 11:24AM ; [facility] - Continue current medication - Last Documented On 08/28/2023 11:24AM ; [facility] - Patient to call if problem develops - Last Documented On 08/28/2023 11:24AM ; [facility] Education and Decision Aids were provided during visit for: Education and counseling Adv ice to have regular exercise regimen Last Documented On 11:19AM ; [facility] Assessments Includes: Assessments from this encounter Findings - I48.91 - Unspecified atrial fibrillation - Last Documented On 08/28/2023 11:24AM ; [facility] - I10 - Essential (primary) hypertension - Last Documented On 08/28/2023 11:24AM ; [facility] - K21.9 - Gastro-esophageal reflux disease without esophagitis - Last Documented On 08/28/2023 11:24AM ; [facility] - K59.03 - Drug induced constipation - Last Documented On 08/28/2023 11:24AM ; [facility] - N18.9 - Chronic kidney disease, unspecified - Last Documented On 08/28/2023 11:24AM ; [facility] - E78.5 - Hyperlipidemia, unspecified - Last Documented On 08/28/2023 11:24AM ; [facility] - M48.07 - Spinal stenosis, lumbosacral region - Last Documented On 08/28/2023 11:24AM ; [facility] Instructions Includes: Instructions from this encounter Education and Decision Aids were provided during visit for: Education and counseling Adv ice to have regular exercise regimen Last Documented On 11:19AM ; [facility] Medical Equipment - Implanted Devices Includes: Current Devices No Medical Equipment Recorded Medications Includes: Medications discussed during this encounter and other current Medications Discontinued / Stopped on this date GLENNA MARQUEZ M.D. on 12/20/2022 Lisinopril 10 MG Oral Tablet Provider: GLENNA MARQUEZ M.D. Diagnosis: Essential (prima ry) hypertension Last Documented On 08/28/2023 11:06AM By SAI MARQUEZ MD ; [facility] Current Medications (continue as prescribed) HYDROcodone-Acetaminophen 7. 5-325 MG Oral Tablet 09/11/2023 Provider: GLENNA MARQUEZ M.D. Diagnosis: Spinal stenosis, lumbosacral region Take one four times a day as needed Last Documented On 09/11/2023 10:36AM By SAI MARQUEZ MD ; [facility] Lisinopril 20 MG Oral Tablet 07/10/2023 Provider: GLENNA MARQUEZ M.D. Diagnosis: Essential (prima ry) hypertension TAKE 1 TABLET BY MOUTH TWICE DAILY Last Documented On 07/10/2023 3:00PM By SAI MARQUEZ MD ; [facility] Eliquis 5 MG Oral Tablet 07/10/2023 Provider: SAI MARQUEZ M.D. Diagnosis: Unspecified atri al fibrillation One tablet twice a day Last Documented On 07/10/2023 2:28PM By SAI MARQUEZ MD ; [facility] Naloxone HCl 4 MG/0.1ML Nasal Liquid 03/29/2023 Provider: GLENNA MARQUEZ M.D. 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 Diagnosis: Hyperlipidemia, unspecified TAKE 1 TABLET BY MOUTH DAILY Last Documented On 03/29/2023 1:37PM By SAI MARQUEZ MD ; [facility] Suspended Medications MiraLax 17 GM/SCOOP Oral Powder 02/22/2023 Provider: GLENNA MARQUEZ M.D. Diagnosis: as directed 1 to scops q day Last Documented On 02/22/2023 8:51AM By GUERDA Beavers LPN ; [facility] Medications Administered Includes: Administered [...] Last Documented: On 08/28/2023 10:50A M ; [facility] Results Includes: Results discussed during [...] 12/09/2022 Last Documented On 4 10:45AM ; [facility] DME in home: 06/14/2022 Last Documented On 4 10:45AM ; [facility] DME in home: cane 06/14/2022 Last Documented On 4 10:45AM ; [facility] [PHQ-2] Patient Health Questionnaire 2 i tem total score: 17 (Scale: 0-6) 02/10/2021 Last Documented On 4 10:45AM ; [facility] Difficulty walking 02/10/2021 Last Documented On 4 10:45AM ; [facility] No consumption of alcohol 02/10/2021 Last Documented On 4 10:45AM ; [facility] Not using drugs 02/10/2021 Last Documented On 4 10:45AM ; [facility] Stopped smoking 40 years ago 12/23/2020 Last Documented On 4 10:45AM ; [facility] Current nonsmoker 07/10/2020 Last Documented On 4 10:45AM ; [facility] Former smoker Pt states he quit smoking over 50 yrs ago 07/10/2020 Last Documented On 4 10:45AM ; [facility] Feeling down, depressed, or hopeless in the last 2 weeks? 0 pt Not at all 07/01/2020 Last Documented On 4 10:45AM ; [facility] Lost interest or pleasure in doing thing s was 0 Not at all 07/01/2020 Last Documented On 4 10:45AM ; [facility] Not using alcohol 07/01/2020 Last Documented On 4 10:45AM ; [facility] Non-smoker 11/06/2019 Last Documented On 4 10:45AM ; [facility] No tobacco use prev hx of 50 pack years smoking at young age 0105/08/2019 Last Documented On 4 10:45AM ; [facility] Not using alcohol 11/03/2017 Last Documented On 4 10:45AM ; [facility] Smoking status : Former smoker 8 Last Documented On 4 10:45AM ; [facility] Lives alone 07/23/2012 Last Documented On 4 10:45AM ; [facility] Caffeine use 09/28/2011 Last Documented On 4 10:45AM ; [facility] Single 09/21/2011 Last Documented On 4 10:45AM ; [facility] Retired from work 07/07/2011 Last Documented On 4 10:45AM ; [facility] Abnormal diet TRY TO EAT HARDLY ANY RED MEAT. 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 Last Documented On 4 10:45AM ; [facility] Procedures and Surgical History Includes: Procedures from this encounter Procedures Code Diagnosis Performing Provider Service L ocation Service Date use of tobacco assessment performed 1000F Last Documented On 4 10:50AM ; [facility] review of medications documented 1160F Last Documented On 4 10:50AM ; [facility] Surgical History Last Updated No Pacemaker 02/10/2021 Last Documented On 4 10:45AM ; [facility] History of prostate surgery 09/2009 Last Documented On 4 10:45AM ; [facility] Medical History Includes: Medical History addressed during this encounter Description Last Updated Vaccine history 05/30/2023 Last Documented On 4 10:45AM ; [facility] No diagnosis of history of chronic obstr uctive pulmonary disease 12/09/2022 Last Documented On 4 10:45AM ; [facility] No diagnosis of history of diabetes fozia itus 12/09/2022 Last Documented On 4 10:45AM ; [facility] No history of Congestive Heart Failure 0 12/09/2022 Last Documented On 4 10:45AM ; [facility] Surgery prostate and bladder surgery 04/2022 Last Documented On 4 10:45AM ; [facility] Please list all illnesses/co nditions you have been diagnosed with: Cancer. Prostate and Bladder 02/10/2021 Last Documented On 4 10:45AM ; [facility] Back brace 02/10/2021 Last Documented On 4 10:45AM ; [facility] Currently wearing eyeglasses 02/10/2021 Last Documented On 4 10:45AM ; [facility] No Pain Pump 02/10/2021 Last Documented On 4 10:45AM ; [facility] No Spinal cord stimulator 02/10/2021 Last Documented On 4 10:45AM ; [facility] Please list all surgeries: Prostrate marilu e 2009. bladder. sept 201302/10/2021 Last Documented On 4 10:45AM ; [facility] Severe Pain 02/10/2021 Last Documented On 4 10:45AM ; [facility] Uses a cane for support 02/10/2021 Last Documented On 4 10:45AM ; [facility] No Contact with and (Suspected) exposure to COVID-19 07/01/2020 Last Documented On 4 10:45AM ; [facility] No fall 07/01/2020 Last Documented On 4 10:45AM ; [facility] Not using Opioids 07/01/2020 Last Documented On 4 10:45AM ; [facility] Denies a fear of falling. 05/08/2019 Last Documented On 4 10:45AM ; [facility] Has had no fall in the last 12 months. 0 05/08/2019 Last Documented On 4 10:45AM ; [facility] Medication compliance 07/23/2012 Last Documented On 4 10:45AM ; [facility] Taking medication 09/28/2011 Last Documented On 4 10:45AM ; [facility] Prostate Ca, SP Prostatectomy ~ Urology Dr Charlton 07/07/2011 Last Documented On 4 10:45AM ; [facility] History of essential hypertension 2011 Last Documented On 4 10:45AM ; [facility] History of hyperlipidemia 07/07/2011 Last Documented On 4 10:45AM ; [facility] History of hypertension 08/25/2010 Last Documented On 4 10:45AM ; [facility] Family History Includes: Family History addressed during this encounter Description Last Updated Family history of Cancer Breast Cancer 0 12/09/2022 Last Documented On 4 10:45AM ; [facility] Not using Opioids 12/09/2022 Last Documented On 4 10:45AM ; [facility] Fraternal history of family history of i schemic heart disease 02/10/2021 Last Documented On 4 10:45AM ; [facility] Fraternal history of coronary artery dis ease 08/04/2017 Last Documented On 4 10:45AM ; [facility] Family history reviewed - unchanged [facility] e last visit 11/06/2015 Last Documented On 4 10:45AM ; [facility] Fraternal history of cancer 04/29/2015 Last Documented On 4 10:45AM ; [facility] Fraternal history of heart disease 04/29 Last Documented On 4 10:45AM ; [facility] Maternal history of cancer 04/29/2015 Last Documented On 4 10:45AM ; [facility] Family history of cancer 07/07/2011 Last Documented On 4 10:45AM ; [facility] Family history of coronary artery diseas e 07/07/2011 Last Documented On 4 10:45AM ; [facility] Brother 69 years old [place] 8 YEARS AGO 08/25/2010 Last Documented On 4 10:45AM ; [facility] Father 1985 AT AGE 74- PUMA GEHRIG'S TYPE DISEASE 08/25/2010 Last Documented On 4 10:45AM ; [facility] Heart disease 08/25/2010 Last Documented On 4 10:45AM ; [facility] Mother 1995 AT AGE 72- BREAST CANCER 08/25/2010 Last Documented On 4 10:45AM ; [facility] Review of Systems Includes: Review of Systems [...] Active Last Documented On 4 10:45AM ; [facility] Allergy 12/22/2015 Active Last Documented On 4 10:45AM ; [facility] Encounters Encounter Provider Location Date Check-In Time Check-Out Time Diagnosis CHECK UP GLENNA MARQUEZ M.D. [facility] 08/28/19 24 10:42AM 11:19AM Essential Hypertension, Esophageal Reflux,Hyperl ipidemia,Atri al Fibrillation, Spinal Stenosis Lumbosacral,C onstipation Drug-induced, Chronic Renal Failure Insurance Includes: Active Insurance Policies Plan Name Member ID Group # Subscriber Relationship Effect shannon Dates 1 - MEDICARE PART A CLAIMS/NGS [id number] MARIANNA JUAN Self 2 - [facility] HEALTH CARE OPTIONS [id number] MARIANNA JUAN Self Clinical Notes Includes: Clinical Notes from this encounter * Progress note Date Encounter Last Documented by 08/28/2023 CHECK UP Last documented on 08/28/2023; 11:24 AM, GLENNA MARQUEZ M.D.; [facility] Active Problems & Conditions - I48.91 [...]
[2024-05-20 14:29] LABS: Basophils Absolute Auto 0.02 K/mm3 (0.00-0.10); Basophils Percent Auto 0.3 % (0.0-1.0); Eosinophils Absolute Auto 0.05 K/mm3 (0.02-0.50); Eosinophils Percent Auto 0.9 % (1.0-6.0); Hematocrit 37.1 % (37.0-46.0); Hemoglobin 12.3 g/dL (12.4-15.3); Immature Granulocyte Absolute 0.02 K/mm3 (0.00-0.00); Immature Granulocyte Percent A 0.3 % (0.0-0.0); Lymphocytes Absolute Auto 0.62 K/mm3 (1.10-4.50); Lymphocytes Percent Auto 10.8 % (18.0-42.0); Mean Corpuscular HGB Conc 33.2 g/dL (32-36); Mean Corpuscular Hemoglobin 32.1 pg (27.0-31.0); Mean Corpuscular Volume 96.9 fL (78.0-102.0); Mean Platelet Volume 10.1 fl (8.7-11.0); Monocytes Absolute Auto 0.56 K/mm3 (0.10-0.90); Monocytes Percent Auto 9.7 % (2.0-11.0); Neutrophils Absolute Auto 4.49 K/mm3 (1.70-7.20); Platelet Count Result 163 K/mm3 (150-420); Red Blood Count 3.83 M/mm3 (4.70-6.10); Red Cell Distribution Width 12.4 % (11.6-14.4); White Blood Count 5.8 K/mm3 (4.8-10.8)
[2024-05-20 14:44] LABS: Partial Thromboplastin Time 29.3 Sec (23.9-30.70); Prothrombin Time 11.1 Seconds (9.50-12.1)
[2024-05-20 14:46] LABS: Alanine Aminotransferase 32 U/L (16-63); Albumin Level 4.1 g/dL (3.4-5.0); Alkaline Phosphatase 85 U/L (46-116); Anion Gap 11 mmol/L (4-12); Aspartate Amino Transferase 21 U/L (15-37); Bilirubin,Total 0.9 mg/dL (0.00-1.00); Blood Urea Nitrogen 42 mg/dL (7-18); CRP < 0.5 mg/dL (0.0-0.9); Calcium 9.2 mg/dL (8.5-10.1); Carbon Dioxide 26 mmol/L (21-32); Chloride 101 mmol/L (98-108); Estimated CRCL calculation 32 ml/min; Estimated Glomerular Filt Rate 41; Glucose 125 mg/dL (70-99); Osmolality Calculated 297 mOsm/kg (285-295); Potassium 4.3 mmol/L (3.5-5.1); Sodium 138 mmol/L (136-145); Total Protein 7.2 g/dL (6.4-8.2)
[2024-05-20 14:48] LABS: Lactic Acid Reflex 1.1 mmol/L (0.4-2.0)
[2024-05-20 14:55] LABS: NT Pro B Type Natriuretic Pept 1390 pg/mL (0-450); Troponin I 9.4 ng/L (0.00-60.4)
[2024-05-20 15:00] VITALS: BP 157/99; PULSE 76; O2SAT 99
[2024-05-20 15:40] LABS: Appearance Urine Clear (Clear); Bilirubin Urine Negative (Negative); Blood Urine Negative (Negative); Color Urine Light Yellow (Yellow); Glucose Urine UA Negative (Negative); Ketones Urine Negative (Negative); Leukocyte Esterase Ur Negative LEU/UL (Negative); Nitrate Urine Negative (Negative); Specific Grav Ur 1.015 (1.010-1.020); Urobilinogen Urine 0.2 mg/dL (0.2-1.0)
[2024-05-20 15:47] LABS: Add Urine Microscopic? NO; Protein Urine Negative (Negative)
[2024-05-20 16:00] VITALS: BP 149/99; PULSE 75; O2SAT 99
[2024-05-20 16:30] VITALS: BP 148/97; PULSE 75; RESP 20; O2SAT 99
--- NOTE | 2024-05-20 17:00 | PC.NURSE ---
[id number] attempted nurse to nurse report [id number] 2nd attempt to give report pt sent to floor
--- NOTE | 2024-05-20 17:01 | PC.NURSE ---
On 05/20/24, the student, [abdiel singleton ], provided care and completed [facility] documentation on this patient. I have reviewed the student's documentation and agree with the findings.
[2024-05-20 17:07] VITALS: BMI 27.1
--- NOTE | 2024-05-20 17:50 | PC.NURSE ---
Informed BULK PIGMENT REDUCER meds completed in computer.
[2024-05-20] MEDS: SODIUM CHLORIDE 0.9% IV 1,000 ML 100 ML IV CONT (19:31)
[2024-05-20] MEDS: APIXABAN 2.5 MG TABLET 5 MG PO (20:09)
[2024-05-20] MEDS: HYDROcodone/acetaminophen (*CRX) 5-325 MG TABLET 1 TAB PO (20:09)
[2024-05-20] MEDS: MORPHINE SULFATE (*CRX) 2 MG/ML INJ IV PUSH (22:23)
--- NOTE | 2024-05-20 22:51 | PC.NURSE ---
Patient was given scheduled [place] 5-325 at 2008. Pain was reassessed at 2100, and patient stated pain was still severe. Stated they had given him [place] for pain at home, and it was not effective. Charge nurse notified, and CORKING MACHINE OPERATOR ordered morphine 2 mg IV push, gabapentin 100 mg tid (scheduled to begin at 2210), and [place] 5-325 scheduled to be given at 2200. Since patient had already been given Mend[place]ino at 2008, and morphine at 2222, the 2200 dose of [place] was not given,, and charted so. Patient stated that he had tried Gabapentin in the past, and that it didn't go well. He couldn't remember what the problem was. Therefore, the gabapentin was not given per patient request, and CORKING MACHINE OPERATOR will be notified in the morning.
[2024-05-21] VITALS: BP 127/87; PULSE 73; RESP 16; TEMP 36.6; O2SAT 97
[2024-05-21] MEDS: HYDROcodone/acetaminophen (*CRX) 5-325 MG TABLET 1 TAB PO ×3 (01:20→13:37)
[2024-05-21] MEDS: SODIUM CHLORIDE 0.9% IV 1,000 ML 100 ML IV CONT (05:05)
[2024-05-21] MEDS: MORPHINE SULFATE (*CRX) 2 MG/ML INJ IV PUSH ×2 (05:14→15:38)
[2024-05-21 05:27] LABS: Basophils Absolute Auto 0.02 K/mm3 (0.00-0.10); Basophils Percent Auto 0.2 % (0.0-1.0); Eosinophils Absolute Auto 0.09 K/mm3 (0.02-0.50); Eosinophils Percent Auto 1.1 % (1.0-6.0); Hematocrit 35.3 % (37.0-46.0); Hemoglobin 11.4 g/dL (12.4-15.3); Immature Granulocyte Absolute 0.03 K/mm3 (0.00-0.00); Immature Granulocyte Percent A 0.4 % (0.0-0.0); Lymphocytes Absolute Auto 1.34 K/mm3 (1.10-4.50); Lymphocytes Percent Auto 16.3 % (18.0-42.0); Mean Corpuscular HGB Conc 32.3 g/dL (32-36); Mean Corpuscular Hemoglobin 31.2 pg (27.0-31.0); Mean Corpuscular Volume 96.7 fL (78.0-102.0); Monocytes Absolute Auto 0.76 K/mm3 (0.10-0.90); Monocytes Percent Auto 9.2 % (2.0-11.0); Neutrophils Absolute Auto 5.99 K/mm3 (1.70-7.20); Neutrophils Percent Auto 72.8 % (50.0-70.0); Platelet Count Result 146 K/mm3 (150-420); Red Blood Count 3.65 M/mm3 (4.70-6.10); Red Cell Distribution Width 12.1 % (11.6-14.4); White Blood Count 8.2 K/mm3 (4.8-10.8)
[2024-05-21 05:43] LABS: Alanine Aminotransferase 30 U/L (16-63); Albumin Level 3.6 g/dL (3.4-5.0); Alkaline Phosphatase 78 U/L (46-116); Anion Gap 10 mmol/L (4-12); Aspartate Amino Transferase 19 U/L (15-37); Bilirubin,Total 0.8 mg/dL (0.00-1.00); Blood Urea Nitrogen 35 mg/dL (7-18); Calcium 8.3 mg/dL (8.5-10.1); Carbon Dioxide 26 mmol/L (21-32); Chloride 104 mmol/L (98-108); Estimated CRCL calculation 36 ml/min; Estimated Glomerular Filt Rate 46; Glucose 92 mg/dL (70-99); Magnesium 1.6 mg/dL (1.8-2.4); Osmolality Calculated 298 mOsm/kg (285-295); Potassium 3.8 mmol/L (3.5-5.1); Sodium 140 mmol/L (136-145); Total Protein 6.4 g/dL (6.4-8.2)
--- OUTSIDE RECORDS SUMMARY | 2024-05-21 07:45 | XMS_ITS | Clinical Summary ---
Author Organization [facility] Address [address] [place] [address] Phone Care Team Providers Care Marketing Business Analyst Name Role Phone JIMMY PRICE, SAI Primary Care Provider [phone] JIMMY Andrews, GLENNA Macias Unavailable [phone] Reason for Visit and Chief Complaint [facility] CHECK UP Problems Includes: Problems addressed during this encounter and other active Problems All Visits Onset Date Resolved Date Provider Condition S tatus Chronic Renal Failure 06/14/2022 MEGAN MARQUEZ M.D. Active Last Documented On 06/14/2022 11:26AM ; [facility] Note: Unchanged Constipation Drug-induced 02/18/2022 GLENNA MARQUEZ M.D. Active Last Documented On 02/18/2022 11:15AM ; [facility] Note: Unchanged Spinal Stenosis Lumbosacral 05/20/2021 GLENNA MARQUEZ M.D. Active Last Documented On 2 10:56AM ; [facility] Atrial Fibrillation 03/02/2021 GLENNA MARQUEZ M.D. Active Last Documented On 1 11:51AM ; [facility] Note: Unchanged Hyperlipidemia 08/04/2017 GLENNA MARQUEZ M.D. Active Last Documented On 8 10:00AM ; [facility] Note: Unchanged Esophageal Reflux 05/25/2012 GLENNA June Active Last Documented On 4 9:40AM ; [facility] Essential Hypertension 08/25/2010 GLENNA WHEELER M.D. Active Last Documented On 4 9:40AM ; [facility] Plan of Treatment No [...] By SAI MARQUEZ MD ; [facility] Lisinopril 20 MG Oral Tablet 07/10/2023 Provider: GLENNA MARQUEZ M.D. Diagnosis: Essential (prima ry) hypertension TAKE 1 TABLET BY MOUTH TWICE DAILY Last Documented On 07/10/2023 3:00PM By SAI MARQUEZ MD ; [facility] Eliquis 5 MG Oral Tablet 07/10/2023 Provider: SAI MARQUEZ M.D. Diagnosis: Unspecified atri al fibrillation One tablet twice a day Last Documented On 07/10/2023 2:28PM By SAI MARQUEZ MD ; [facility] Naloxone HCl 4 MG/0.1ML Nasal Liquid 03/29/2023 Provider: GLENNA MARQUEZ M.D. Diagnosis: [facility] (curre nt) use of opiate analgesic as directed 4 mg nasally as needed Last Documented On 03/29/2023 11:32AM By SAI MARQUEZ MD ; [facility] Pravastatin Sodium 20 MG Oral Tablet 03/29/2023 Provider: GLENNA MARQUEZ M.D. Diagnosis: Hyperlipidemia, unspecified TAKE 1 TABLET BY MOUTH DAILY Last Documented On 03/29/2023 1:37PM By SAI MARQUEZ MD ; [facility] Suspended Medications MiraLax 17 GM/SCOOP Oral Powder 02/22/2023 Provider: GLENNA MARQUEZ M.D. Diagnosis: as directed 1 to scops q day Last Documented On 02/22/2023 8:51AM By GUERDA Beavers LPN ; [facility] Medications Administered Includes: Administered Medications [...] Active Last Documented On 4 10:45AM ; [facility] Allergy 12/22/2015 Active Last Documented On 4 10:45AM ; [facility] Encounters Encounter Provider Location Date Check-In Time Check- Out Time Diagnosis [facility] CHECK UP CALOS JONES MD [facility] 4 11:30AM 11:53AM Insurance Includes: Active Insurance Policies Plan Name Member ID Group # Subscriber Relationship Effect shannon Dates 1 - MEDICARE PART A CLAIMS/NGS [id number] MARIANNA Salas 2 - [facility] HEALTH CARE OPTIONS [id number] MARIANNA Salas Clinical Notes Includes: Clinical Notes from this encounter No Clinical Notes Recorded
--- OUTSIDE RECORDS SUMMARY | 2024-05-21 07:45 | XMS_ITS ---
Care Plan - [facility] Created on: May 21, 2024 DRAKEMARIANNA : 1945 Sex: Male Author Organization [facility] Address [address] [place] [address] Phone Care Team Providers Care Weighmaster Name Role Phone JIMMY PRICE, SAI Primary Care Provider [phone] JIMMY Andrews, GLENNA Macias Unavailable [phone]
--- OUTSIDE RECORDS SUMMARY | 2024-05-21 07:45 | XMS_ITS | Clinical Summary ---
Author Organization [facility] Address [address] [place] [address] Phone Care Team Providers Care Composition Weatherboard Applier Name Role Phone JIMMY PRICE, SAI Primary Care Provider [phone] JIMMY Andrews, GLENNA Macias Unavailable [phone] Reason for Visit and Chief Complaint visit [...] Active Last Documented On 06/14/2022 11:26AM ; [facility] Note: Unchanged Constipation Drug-induced 02/18/2022 GLENNA MARQUEZ M.D. Active Last Documented On 02/18/2022 11:15AM ; [facility] Note: Unchanged Spinal Stenosis Lumbosacral 05/20/2021 GLENNA MARQUEZ M.D. Active Last Documented On 2 10:56AM ; [facility] Atrial Fibrillation 03/02/2021 GLENNA MARQUEZ M.D. Active Last Documented On 1 11:51AM ; [facility] Note: Unchanged Hyperlipidemia 08/04/2017 GLENNA MARQUEZ M.D. Active Last Documented On 8 10:00AM ; [facility] Note: Unchanged Esophageal Reflux 05/25/2012 GLENNA June Active Last Documented On 4 9:40AM ; [facility] Hyperlipidemia 08/25/2010 GLENNA MARQUEZ M.D. Inactive Last Documented On 5 10:50AM ; [facility] Essential Hypertension 08/25/2010 GLENNA WHEELER M.D. Active Last Documented On 4 9:40AM ; [facility] Plan of Treatment - Monitor Blood Pressure at home - Last Documented On 05/30/2023 11:25AM ; [facility] - Return to the clinic if condition worsens or new symptoms arise - Last Documented On 05/30/2023 11:25AM ; [facility] - Continue current medication - Last Documented On 05/30/2023 11:25AM ; [facility] - Modify drug dosage Lisinopril to 20 mg 2 x a day - Last Documented On 05/30/2023 11:25AM ; [facility] - Patient to call if problem develops - Last Documented On 05/30/2023 11:25AM ; [facility] Assessments Includes: Assessments from this encounter Findings - I48.91 - Unspecified atrial fibrillation - Last Documented On 05/30/2023 11:25AM ; [facility] - I10 - Essential (primary) hypertension - Last Documented On 05/30/2023 11:25AM ; [facility] - K21.9 - Gastro-esophageal reflux disease without esophagitis - Last Documented On 05/30/2023 11:25AM ; [facility] - K59.03 - Drug induced constipation - Last Documented On 05/30/2023 11:25AM ; [facility] - N18.9 - Chronic kidney disease, unspecified - Last Documented On 05/30/2023 11:25AM ; [facility] - E78.5 - Hyperlipidemia, unspecified - Last Documented On 05/30/2023 11:25AM ; [facility] - M48.07 - Spinal stenosis, lumbosacral region - Last Documented On 05/30/2023 11:25AM ; [facility] Medical Equipment - Implanted Devices Includes: Current Devices No Medical Equipment Recorded Medications Includes: Medications discussed during this encounter and other current Medications Discontinued / Stopped on this date GLENNA MARQUEZ M.D. on 11/17/2022 Movantik 25 MG Oral Tablet Provider: Atul MARQUEZ M.D. Diagnosis: Drug induced con stipation Last Documented On 05/30/2023 11:18AM By SAI MARQUEZ MD ; [facility] New / Renewed during this visit GLENNA MARQUEZ M.D. on 05/30/2023 Lisinopril 20 MG Oral Tablet Provider: GLENNA MARQUEZ M.D. 90 day supply: 180 tablet, 0 refills Diagnosis: Essential (primary) hypertension One tablet twice a day Pharmacy: [address] [phone] - Last Documented On 07/10/2023 2:02PM By SAI MARQUEZ MD ; [facility] Current Medications (continue as prescribed) HYDROcodone-Acetaminophen 7. 5-325 MG Oral Tablet 09/11/2023 Provider: GLENNA MARQUEZ M.D. Diagnosis: Spinal stenosis, lumbosacral region Take one four times a day as needed Last Documented On 09/11/2023 10:36AM By SAI MARQUEZ MD ; [facility] Lisinopril 20 MG Oral Tablet 07/10/2023 Provider: GLENNA MARQUEZ M.D. Diagnosis: Essential (prima ry) hypertension TAKE 1 TABLET BY MOUTH TWICE DAILY Last Documented On 07/10/2023 3:00PM By SAI MARQUEZ MD ; [facility] Eliquis 5 MG Oral Tablet 07/10/2023 Provider: SAI MARQUEZ M.D. Diagnosis: Unspecified atri al fibrillation One tablet twice a day Last Documented On 07/10/2023 2:28PM By SAI MARQUEZ MD ; [facility] Naloxone HCl 4 MG/0.1ML Nasal Liquid 03/29/2023 Provider: GLENNA MARQUEZ M.D. Diagnosis: [facility] (curre nt) use of opiate analgesic as directed 4 mg nasally as needed Last Documented On 03/29/2023 11:32AM By SAI MARQUEZ MD ; [facility] Pravastatin Sodium 20 MG Oral Tablet 03/29/2023 Provider: GLENNA MARQUEZ M.D. Diagnosis: Hyperlipidemia, unspecified TAKE 1 TABLET BY MOUTH DAILY Last Documented On 03/29/2023 1:37PM By SAI MARQUEZ MD ; [facility] Suspended Medications MiraLax 17 GM/SCOOP Oral Powder 02/22/2023 Provider: GLENNA MARQUEZ M.D. Diagnosis: as directed 1 to scops q day Last Documented On 02/22/2023 8:51AM By GUERDA Beavers LPN ; [facility] Medications Administered Includes: Administered Medications from this [...] Last Documented: On 05/30/2023 11:05A M ; [facility] Results Includes: Results discussed during this encounter CBC WITH DIFF [facility] Ordered by GLENNA Coronel on 05/11/2023 [address] [facility], [place], [address] Collected: 05/26/2023 Report ed: 05/26/2023 11:17 tel: Last Documented On 4 12:04PM ; [facility] Reviewed by GLENNA MARQUEZ M.D. on 05/26/2023; All test results are final unless otherwise noted. ALC 1.2 None Last Documented On 4 11:58AM ; [facility] Note: Responsible Observer: (HRG) ANC 4.3 None Last Documented On 4 11:58AM ; [facility] Note: Responsible Observer: (HRG) BASO# 0.02 th/uL (0.00 - 0.20) None Last Documented On 4 11:58AM ; [facility] Note: Responsible Observer: (HRG) BASO% 0.3 % (0.0 - 2.0) None Last Documented On 4 11:58AM ; [facility] Note: Responsible Observer: (HRG) CBC WITH DIFF See Note None Last Documented On 4 11:58AM ; [facility] Note: CBC (COMPLETE BLOOD COUNT)Responsi ble Observer: (HRG) DIFF (Y/N) NO None Last Documented On 4 11:58AM ; [facility] Note: Responsible Observer: (HRG) EOS# 0.23 th/uL (0.00 - 0.45) None Last Documented On 4 11:58AM ; [facility] Note: Responsible Observer: (HRG) EOS% 3.6 % (0.0 - 9.0) None Last Documented On 4 11:58AM ; [facility] Note: Responsible Observer: (HRG) HCT 38.6 % (40.0 - 54.0) L (Low) Last Documented On 4 11:58AM ; [facility] Note: Responsible Observer: (HRG) HGB 12.9 g/dL (13.5 - 17.5) L (Low) Last Documented On 4 11:58AM ; [facility] Note: Responsible Observer: (HRG) IG# 0.04 th/ul (0.00 - 0.10) None Last Documented On 4 11:58AM ; [facility] Note: Responsible Observer: (HRG) IG% 0.6 % (0.0 - 0.5) H (High) Last Documented On 4 11:58AM ; [facility] Note: Responsible Observer: (HRG) LYMPH# 1.19 th/uL (1.00 - 4.80) None Last Documented On 4 11:58AM ; [facility] Note: Responsible Observer: (HRG) LYMPH% 18.7 % (14.0 - 45.0) None Last Documented On 4 11:58AM ; [facility] Note: Responsible Observer: (HRG) MCH 32.9 pg (25.0 - 35.0) None Last Documented On 4 11:58AM ; [facility] Note: Responsible Observer: (HRG) MCHC 33.4 g/dL (31.0 - 36.0) None Last Documented On 4 11:58AM ; [facility] Note: Responsible Observer: (HRG) MCV 98.5 fl (80.0 - 100) None Last Documented On 4 11:58AM ; [facility] Note: Responsible Observer: (HRG) MONO# 0.64 th/uL (0.00 - 0.80) None Last Documented On 4 11:58AM ; [facility] Note: Responsible Observer: (HRG) MONO% 10.1 % (1.0 - 10.0) H (High) Last Documented On 4 11:58AM ; [facility] Note: Responsible Observer: (HRG) MPV 12.7 fl (6.0 - 11.0) H (High) Last Documented On 4 11:58AM ; [facility] Note: Responsible Observer: (HRG) NEUT# 4.24 th/uL None Last Documented On 4 11:58AM ; [facility] Note: Responsible Observer: (HRG) NEUT% 66.7 % (45.0 - 76.0) None Last Documented On 4 11:58AM ; [facility] Note: Responsible Observer: (HRG) NRBC% 0.0 % (0.0 - 0.0) None Last Documented On 4 11:58AM ; [facility] Note: Responsible Observer: (HRG) PLT 141 th/uL (150 - 400) L (Low) Last Documented On 4 11:58AM ; [facility] Note: Responsible Observer: (HRG) RBC 3.92 mil/uL (4.50 - 5.90) L (Low) Last Documented On 4 11:58AM ; [facility] Note: Responsible Observer: (HRG) RDW 11.7 % (11.0 - 16.0) None Last Documented On 4 11:58AM ; [facility] Note: Responsible Observer: (HRG) WBC 6.4 th/uL (4.5 - 11.0) None Last Documented On 4 11:58AM ; [facility] Note: Responsible Observer: (HRG) BMP [facility] La [facility]atory Ordered by GLENNA Coronel on 05/11/2023 [address] [facility], [place], [address] Collected: 05/26/2023 Report ed: 05/26/2023 11:34 tel: Last Documented On 4 12:04PM ; [facility] Reviewed by GLENNA MARQUEZ M.D. on 05/26/2023; All test results are final unless otherwise noted. AGE 78 YEARS None Last Documented On 4 11:58AM ; [facility] Note: Responsible Observer: (APR) ANION GAP 14.3 mmol/L (8.0 - 16.0) None Last Documented On 4 11:58AM ; [facility] Note: eGFR INTERPRETATION AGE AVG GFR 2 [...] None Last Documented On 4 11:58AM ; [facility] Note: BASIC METABOLIC PANELResponsible O bserver: (APR) BUN 24 mg/dL (9 - 20) H (High) Last Documented On 4 11:58AM ; [facility] Note: Responsible Observer: (APR) CALCIUM 9.2 mg/dL (8.9 - 10.0) None Last Documented On 4 11:58AM ; [facility] Note: Responsible Observer: (APR) CHLORIDE 105 mmol/L (98 - 107) None Last Documented On 4 11:58AM ; [facility] Note: Responsible Observer: (APR) CREATININE 1.4 mg/dL (0.8 - 1.5) None Last Documented On 4 11:58AM ; [facility] Note: Responsible Observer: (APR) eGFR. 51 mL/min None Last Documented On 4 11:58AM ; [facility] Note: Responsible Observer: (APR) GLUCOSE 86 mg/dL (70 - 105) None Last Documented On 4 11:58AM ; [facility] Note: Responsible Observer: (APR) POTASSIUM 4.3 mmol/L (3.6 - 5.0) None Last Documented On 4 11:58AM ; [facility] Note: Responsible Observer: (APR) SODIUM 139 mmol/L (137 - 145) None Last Documented On 4 11:58AM ; [facility] Note: Responsible Observer: (APR) TCO2 24.0 mmol/L (22.0 - 30.0) None Last Documented On 4 11:58AM ; [facility] Note: Responsible Observer: (APR) [...] 12/09/2022 Last Documented On 4 11:01AM ; [facility] DME in home: 06/14/2022 Last Documented On 4 11:01AM ; [facility] DME in home: cane 06/14/2022 Last Documented On 4 11:01AM ; [facility] [PHQ-2] Patient Health Questionnaire 2 i tem total score: 17 (Scale: 0-6) 02/10/2021 Last Documented On 4 11:01AM ; [facility] Difficulty walking 02/10/2021 Last Documented On 4 11:01AM ; [facility] No consumption of alcohol 02/10/2021 Last Documented On 4 11:01AM ; [facility] Not using drugs 02/10/2021 Last Documented On 4 11:01AM ; [facility] Stopped smoking 40 years ago 12/23/2020 Last Documented On 4 11:01AM ; [facility] Current nonsmoker 07/10/2020 Last Documented On 4 11:01AM ; [facility] Former smoker Pt states he quit smoking over 50 yrs ago 07/10/2020 Last Documented On 4 11:01AM ; [facility] Feeling down, depressed, or hopeless in the last 2 weeks? 0 pt Not at all 07/01/2020 Last Documented On 4 11:01AM ; [facility] Lost interest or pleasure in doing thing s was 0 Not at all 07/01/2020 Last Documented On 4 11:01AM ; [facility] Not using alcohol 07/01/2020 Last Documented On 4 11:01AM ; [facility] Non-smoker 11/06/2019 Last Documented On 4 11:01AM ; [facility] No tobacco use prev hx of 50 pack years smoking at young age 0105/08/2019 Last Documented On 4 11:01AM ; [facility] Not using alcohol 11/03/2017 Last Documented On 4 11:01AM ; [facility] Smoking status : Former smoker 8 Last Documented On 4 11:01AM ; [facility] Lives alone 07/23/2012 Last Documented On 4 11:01AM ; [facility] Caffeine use 09/28/2011 Last Documented On 4 11:01AM ; [facility] Single 09/21/2011 Last Documented On 4 11:01AM ; [facility] Retired from work 07/07/2011 Last Documented On 4 11:01AM ; [facility] Abnormal diet TRY TO EAT HARDLY ANY RED MEAT. EAT FISH,VEGETABLES, ETC 08/25/2010 Last Documented On 4 11:01AM ; [facility] Exercise frequency BIKE RIDE 1/2 HR, WA LK 1/2 HR, WEIGHTS 1/2 HR 08/25/2010 Last Documented On 4 11:01AM ; [facility] Occupation [employer] 200608/25/2010 Last Documented On 4 11:01AM ; [facility] Procedures and Surgical History Includes: Procedures from this encounter Procedures Code Diagnosis Performing Provider Service L ocation Service Date use of tobacco assessment performed 1000F Last Documented On 4 11:06AM ; [facility] review of medications documented 1160F Last Documented On 4 11:06AM ; [facility] Surgical History Last Updated No Pacemaker 02/10/2021 Last Documented On 4 11:01AM ; [facility] History of prostate surgery 09/2009 Last Documented On 4 11:01AM ; [facility] Medical History Includes: Medical History addressed during this encounter Description Last Updated Vaccine history 05/30/2023 Last Documented On 4 11:25AM ; [facility] Diastolic blood pressure 85 mmHg 023 Last Documented On 4 11:01AM ; [facility] Systolic blood pressure 150 mmHg 023 Last Documented On 4 11:01AM ; [facility] No diagnosis of history of chronic obstr uctive pulmonary disease 12/09/2022 Last Documented On 4 11:01AM ; [facility] No diagnosis of history of diabetes fozia itus 12/09/2022 Last Documented On 4 11:01AM ; [facility] No history of Congestive Heart Failure 0 12/09/2022 Last Documented On 4 11:01AM ; [facility] Surgery prostate and bladder surgery 04/2022 Last Documented On 4 11:01AM ; [facility] Please list all illnesses/co nditions you have been diagnosed with: Cancer. Prostate and Bladder 02/10/2021 Last Documented On 4 11:01AM ; [facility] Back brace 02/10/2021 Last Documented On 4 11:01AM ; [facility] Currently wearing eyeglasses 02/10/2021 Last Documented On 4 11:01AM ; [facility] No Pain Pump 02/10/2021 Last Documented On 4 11:01AM ; [facility] No Spinal cord stimulator 02/10/2021 Last Documented On 4 11:01AM ; [facility] Please list all surgeries: Prostrate marilu e 2009. bladder. dec 2013 02/10/2021 Last Documented On 4 11:01AM ; [facility] Severe Pain 02/10/2021 Last Documented On 4 11:01AM ; [facility] Uses a cane for support 02/10/2021 Last Documented On 4 11:01AM ; [facility] No Contact with and (Suspected) exposure to COVID-19 07/01/2020 Last Documented On 4 11:01AM ; [facility] No fall 07/01/2020 Last Documented On 4 11:01AM ; [facility] Not using Opioids 07/01/2020 Last Documented On 4 11:01AM ; [facility] Denies a fear of falling. 05/08/2019 Last Documented On 4 11:01AM ; [facility] Has had no fall in the last 12 months. 0 05/08/2019 Last Documented On 4 11:01AM ; [facility] Medication compliance 07/23/2012 Last Documented On 4 11:01AM ; [facility] Taking medication 09/28/2011 Last Documented On 4 11:01AM ; [facility] Prostate Ca, SP Prostatectomy ~ Urology Dr Charlton 07/07/2011 Last Documented On 4 11:01AM ; [facility] History of essential hypertension 2011 Last Documented On 4 11:01AM ; [facility] History of hyperlipidemia 07/07/2011 Last Documented On 4 11:01AM ; [facility] History of hypertension 08/25/2010 Last Documented On 4 11:01AM ; [facility] Family History Includes: Family History addressed during this encounter Description Last Updated Family history of Cancer Breast Cancer 0 12/09/2022 Last Documented On 4 11:01AM ; [facility] Not using Opioids 12/09/2022 Last Documented On 4 11:01AM ; [facility] Fraternal history of family history of i schemic heart disease 02/10/2021 Last Documented On 4 11:01AM ; [facility] Fraternal history of coronary artery dis ease 08/04/2017 Last Documented On 4 11:01AM ; [facility] Family history reviewed - unchanged sin e last visit 11/06/2015 Last Documented On 4 11:01AM ; [facility] Fraternal history of cancer 04/29/2015 Last Documented On 4 11:01AM ; [facility] Fraternal history of heart disease 04/29 Last Documented On 4 11:01AM ; [facility] Maternal history of cancer 04/29/2015 Last Documented On 4 11:01AM ; [facility] Family history of cancer 07/07/2011 Last Documented On 4 11:01AM ; [facility] Family history of coronary artery diseas e 07/07/2011 Last Documented On 4 11:01AM ; [facility] Brother 69 years old [place] 8 YEARS AGO 08/25/2010 Last Documented On 4 11:01AM ; [facility] Father 1985 AT AGE 74- PUMA GEHRIG'S TYPE DISEASE 08/25/2010 Last Documented On 4 11:01AM ; [facility] Heart disease 08/25/2010 Last Documented On 4 11:01AM ; [facility] Mother 1995 AT AGE 72- BREAST CANCER 08/25/2010 Last Documented On 4 11:01AM ; [facility] Review of Systems Includes: Review of Systems [...] Active Last Documented On 4 10:45AM ; [facility] Allergy 12/22/2015 Active Last Documented On 4 10:45AM ; [facility] Encounters Encounter Provider Location Date Check-In Time Check-Out Time Diagnosis CHECK UP GLENNA MARQUEZ M.D. [facility] 05/30/19 24 10:57AM 11:15AM Essential Hypertension, Esophageal Reflux,Hyperl ipidemia,Atri al Fibrillation, Spinal Stenosis Lumbosacral,C onstipation Drug-induced, Chronic Renal Failure Insurance Includes: Active Insurance Policies Plan Name Member ID Group # Subscriber Relationship Effect shannon Dates 1 - MEDICARE PART A CLAIMS/NGS [id number] [facility] [employer] [facility] 2 - [facility] OPTIONS [id number] [facility] [employer] [facility] Clinical Notes Includes: Clinical Notes from this encounter * Progress note Date Encounter Last Documented by 05/30/2023 CHECK UP Last documented on 05/30/2023; 11:25 AM, GLENNA MARQUEZ M.D.; [facility] Active Problems & Conditions [...] Work: Retired from work and occupation [employer] 2006. Marital: Single. Functional: Feeling down, depressed, [...]
--- OUTSIDE RECORDS SUMMARY | 2024-05-21 07:45 | XMS_ITS | Clinical Summary ---
Author Organization [facility] Address [address] [place] [address] Phone Care Team Providers Care Administrative Secretary Name Role Phone JIMMY PRICE, SAI Primary Care Provider [phone] JIMMY Andrews, GLENNA Macias Unavailable [phone] Reason for Visit and Chief Complaint ECHOCARDIOGRAM Problems Includes: Problems addressed during this encounter and other active Problems All Visits Onset Date Resolved Date Provider Condition S tatus Chronic Renal Failure 06/14/2022 MEGAN MARQUEZ M.D. Active Last Documented On 06/14/2022 11:26AM ; [facility] Note: Unchanged Constipation Drug-induced 02/18/2022 GLENNA MARQUEZ M.D. Active Last Documented On 02/18/2022 11:15AM ; [facility] Note: Unchanged Spinal Stenosis Lumbosacral 05/20/2021 GLENNA MARQUEZ M.D. Active Last Documented On 2 10:56AM ; [facility] Atrial Fibrillation 03/02/2021 GLENNA MARQUEZ M.D. Active Last Documented On 1 11:51AM ; [facility] Note: Unchanged Hyperlipidemia 08/04/2017 GLENNA MARQUEZ M.D. Active Last Documented On 8 10:00AM ; [facility] Note: Unchanged Esophageal Reflux 05/25/2012 GLENNA June Active Last Documented On 4 9:40AM ; [facility] Essential Hypertension 08/25/2010 GLENNA WHEELER M.D. Active Last Documented On 4 9:40AM ; [facility] Plan of Treatment No Plan of Treatment [...] 09/11/2023 10:36AM By SAI MARQUEZ MD ; [facility] Lisinopril 20 MG Oral Tablet 07/10/2023 Provider: GLENNA MARQUEZ M.D. Diagnosis: Essential (prima ry) hypertension TAKE 1 TABLET BY MOUTH TWICE DAILY Last Documented On 07/10/2023 3:00PM By SAI MARQUEZ MD ; [facility] Eliquis 5 MG Oral Tablet 07/10/2023 Provider: SAI MARQUEZ M.D. Diagnosis: Unspecified atri al fibrillation One tablet twice a day Last Documented On 07/10/2023 2:28PM By SAI MARQUEZ MD ; [facility] Naloxone HCl 4 MG/0.1ML Nasal Liquid 03/29/2023 Provider: GLENNA MARQUEZ M.D. Diagnosis: retirement (curre nt) use of opiate analgesic as directed 4 mg nasally as needed Last Documented On 03/29/2023 11:32AM By SAI MARQUEZ MD ; [facility] Pravastatin Sodium 20 MG Oral Tablet 03/29/2023 Provider: GLENNA MARQUEZ M.D. Diagnosis: Hyperlipidemia, unspecified TAKE 1 TABLET BY MOUTH DAILY Last Documented On 03/29/2023 1:37PM By SAI MARQUEZ MD ; [facility] Suspended Medications MiraLax 17 GM/SCOOP Oral Powder 02/22/2023 Provider: GLENNA MARQUEZ M.D. Diagnosis: as directed 1 to scops q day Last Documented On 02/22/2023 8:51AM By GUERDA Beavers LPN ; [facility] Medications Administered Includes: Administered [...] Date ECHOCARDIOGRAPHY- TRANSTHORAC W/ DOPPLER (Professional Comp.) 63489 Other persistent atrial fibrillation, Essential (primary) hypertension, Mixed hyperlipidemia, Rheumatic disorders of both mitral and tricuspid valves CALOS JONES MD [facility]- 08/25/2023 Last Documented On 4 1:23PM ; [facility] ELECTROCARDIAGRAM READING FEE (EKG) (DISTINCT PROCEDURAL SERVICE DIFFERENT SITE) 45524 Other persistent atrial fibrillation, Essential (primary) hypertension CALOS JONES MD [facility]- 08/25/2023 Last Documented On 4 1:23PM ; [facility] Medical History Includes: Medical History addressed [...] Active Last Documented On 4 10:45AM ; [facility] Allergy 12/22/2015 Active Last Documented On 4 10:45AM ; [facility] Encounters Encounter Provider Location Date Check-In Time Check-Out Time Diagnosis ECHOCARDIOGRAM CALOS JONES MD [facility] 4 10:40AM 11:26AM Insurance Includes: Active Insurance Policies Plan Name Member ID Group # Subscriber Relationship Effect shannon Dates 1 - MEDICARE PART A CLAIMS/NGS [id number] MARIANNA Salas 2 - [facility] OPTIONS [id number] MARIANNA Salas Clinical Notes Includes: Clinical Notes from this encounter No Clinical Notes Recorded
--- OUTSIDE RECORDS SUMMARY | 2024-05-21 07:45 | XMS_ITS | Clinical Summary ---
Author Organization [facility] Address [address] [place] [address] Phone Care Team Providers Care Telephoner Name Role Phone JIMMY PRICE, SAI Primary Care Provider [phone] JIMMY Andrews, GLENNA Macias Unavailable [phone] Reason for Visit and Chief Complaint CAROTID ULTRASOUND Problems Includes: Problems addressed during this encounter and other active Problems All Visits Onset Date Resolved Date Provider Condition S tatus Chronic Renal Failure 06/14/2022 MEGAN MARQUEZ M.D. Active Last Documented On 06/14/2022 11:26AM ; [facility] Note: Unchanged Constipation Drug-induced 02/18/2022 GLENNA MARQUEZ M.D. Active Last Documented On 02/18/2022 11:15AM ; [facility] Note: Unchanged Spinal Stenosis Lumbosacral 05/20/2021 GLENNA MARQUEZ M.D. Active Last Documented On 2 10:56AM ; [facility] Atrial Fibrillation 03/02/2021 GLENNA MARQUEZ M.D. Active Last Documented On 1 11:51AM ; [facility] Note: Unchanged Hyperlipidemia 08/04/2017 GLENNA MARQUEZ M.D. Active Last Documented On 8 10:00AM ; [facility] Note: Unchanged Esophageal Reflux 05/25/2012 GLENNA June Active Last Documented On 4 9:40AM ; [facility] Essential Hypertension 08/25/2010 GLENNA WHEELER M.D. Active Last Documented On 4 9:40AM ; [facility] Plan of Treatment No Plan of Treatment [...] 09/11/2023 10:36AM By SAI MARQUEZ MD ; [facility] Lisinopril 20 MG Oral Tablet 07/10/2023 Provider: GLENNA MARQUEZ M.D. Diagnosis: Essential (prima ry) hypertension TAKE 1 TABLET BY MOUTH TWICE DAILY Last Documented On 07/10/2023 3:00PM By SAI MARQUEZ MD ; [facility] Eliquis 5 MG Oral Tablet 07/10/2023 Provider: SAI MARQUEZ M.D. Diagnosis: Unspecified atri al fibrillation One tablet twice a day Last Documented On 07/10/2023 2:28PM By SAI MARQUEZ MD ; [facility] Naloxone HCl 4 MG/0.1ML Nasal Liquid 03/29/2023 Provider: GLENNA MARQUEZ M.D. Diagnosis: [facility] (curre nt) use of opiate analgesic as directed 4 mg nasally as needed Last Documented On 03/29/2023 11:32AM By SAI MARQUEZ MD ; [facility] Pravastatin Sodium 20 MG Oral Tablet 03/29/2023 Provider: GLENNA MARQUEZ M.D. Diagnosis: Hyperlipidemia, unspecified TAKE 1 TABLET BY MOUTH DAILY Last Documented On 03/29/2023 1:37PM By SAI MARQUEZ MD ; [facility] Suspended Medications MiraLax 17 GM/SCOOP Oral Powder 02/22/2023 Provider: GLENNA MARQUEZ M.D. Diagnosis: as directed 1 to scops q day Last Documented On 02/22/2023 8:51AM By GUERDA Beavers LPN ; [facility] Medications Administered Includes: Administered [...] OF EXTRACRANIAL ARTERIES; COMP BRAXTON (Professional Comp.) 98503 Occlusion and stenosis of bilateral carotid arteries ANNAMARIA JOENS MD [facility] 09/18/2023 Last Documented On 4 10:18AM ; [facility] Medical History Includes: Medical History addressed during [...] Active Last Documented On 4 10:45AM ; [facility] Allergy 12/22/2015 Active Last Documented On 4 10:45AM ; [facility] Encounters Encounter Provider Location Date Check-In Time Check-Out Time Diagnosis CAROTID ULTRASOUND ANNAMARIA JONES MD [facility] 09/18/19 24 10:41AM 11:28AM Insurance Includes: Active Insurance Policies Plan Name Member ID Group # Subscriber Relationship Effect shannon Dates 1 - MEDICARE PART A CLAIMS/NGS [id number] MARIANNA Salas 2 - [facility] OPTIONS [id number] MARIANNA Salas Clinical Notes Includes: Clinical Notes from this encounter No Clinical Notes Recorded
--- OUTSIDE RECORDS SUMMARY | 2024-05-21 07:46 | XMS_ITS | Clinical Summary ---
Author Organization [facility] Address [address] [place] [address] Phone Care Team Providers Care Detacher Name Role Phone JIMMY PRICE, SAI Primary Care Provider [phone] JIMMY Andrews, GLENNA Macias Unavailable [phone] Reason for Visit and Chief Complaint visit [...] Active Last Documented On 06/14/2022 11:26AM ; [facility] Note: Unchanged Constipation Drug-induced 02/18/2022 GLENNA MARQUEZ M.D. Active Last Documented On 02/18/2022 11:15AM ; [facility] Note: Unchanged Spinal Stenosis Lumbosacral 05/20/2021 GLENNA MARQUEZ M.D. Active Last Documented On 2 10:56AM ; [facility] Atrial Fibrillation 03/02/2021 GLENNA MARQUEZ M.D. Active Last Documented On 1 11:51AM ; [facility] Note: Unchanged Hyperlipidemia 08/04/2017 GLENNA MARQUEZ M.D. Active Last Documented On 8 10:00AM ; [facility] Note: Unchanged Esophageal Reflux 05/25/2012 GLENNA June Active Last Documented On 4 9:40AM ; [facility] Hyperlipidemia 08/25/2010 GLENNA MARQUEZ M.D. Inactive Last Documented On 5 10:50AM ; [facility] Essential Hypertension 08/25/2010 GLENNA Vieira.DJun Active Last Documented On 4 9:40AM ; [facility] Plan of Treatment - Return to the clinic if condition worsens or new symptoms arise - Last Documented On 08/28/2023 11:24AM ; [facility] - Continue current medication - Last Documented On 08/28/2023 11:24AM ; [facility] - Patient to call if problem develops - Last Documented On 08/28/2023 11:24AM ; [facility] Education and Decision Aids were provided during visit for: Education and counseling Adv ice to have regular exercise regimen Last Documented On 11:19AM ; [facility] Assessments Includes: Assessments from this encounter Findings - I48.91 - Unspecified atrial fibrillation - Last Documented On 08/28/2023 11:24AM ; [facility] - I10 - Essential (primary) hypertension - Last Documented On 08/28/2023 11:24AM ; [facility] - K21.9 - Gastro-esophageal reflux disease without esophagitis - Last Documented On 08/28/2023 11:24AM ; [facility] - K59.03 - Drug induced constipation - Last Documented On 08/28/2023 11:24AM ; [facility] - N18.9 - Chronic kidney disease, unspecified - Last Documented On 08/28/2023 11:24AM ; [facility] - E78.5 - Hyperlipidemia, unspecified - Last Documented On 08/28/2023 11:24AM ; [facility] - M48.07 - Spinal stenosis, lumbosacral region - Last Documented On 08/28/2023 11:24AM ; [facility] Instructions Includes: Instructions from this encounter Education and Decision Aids were provided during visit for: Education and counseling Adv ice to have regular exercise regimen Last Documented On 11:19AM ; [facility] Medical Equipment - Implanted Devices Includes: Current Devices No Medical Equipment Recorded Medications Includes: Medications discussed during this encounter and other current Medications Discontinued / Stopped on this date GLENNA MARQUEZ M.D. on 12/20/2022 Lisinopril 10 MG Oral Tablet Provider: GLENNA MARQUEZ M.D. Diagnosis: Essential (prima ry) hypertension Last Documented On 08/28/2023 11:06AM By SAI MARQUEZ MD ; [facility] Current Medications (continue as prescribed) HYDROcodone-Acetaminophen 7. 5-325 MG Oral Tablet 09/11/2023 Provider: GLENNA MARQUEZ M.D. Diagnosis: Spinal stenosis, lumbosacral region Take one four times a day as needed Last Documented On 09/11/2023 10:36AM By SAI MARQUEZ MD ; [facility] Lisinopril 20 MG Oral Tablet 07/10/2023 Provider: GLENNA MARQUEZ M.D. Diagnosis: Essential (prima ry) hypertension TAKE 1 TABLET BY MOUTH TWICE DAILY Last Documented On 07/10/2023 3:00PM By SAI MARQUEZ MD ; [facility] Eliquis 5 MG Oral Tablet 07/10/2023 Provider: SAI MARQUEZ M.D. Diagnosis: Unspecified atri al fibrillation One tablet twice a day Last Documented On 07/10/2023 2:28PM By SAI MARQUEZ MD ; [facility] Naloxone HCl 4 MG/0.1ML Nasal Liquid 03/29/2023 Provider: GLENNA MARQUEZ M.D. 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 Diagnosis: Hyperlipidemia, unspecified TAKE 1 TABLET BY MOUTH DAILY Last Documented On 03/29/2023 1:37PM By SAI MARQUEZ MD ; [facility] Suspended Medications MiraLax 17 GM/SCOOP Oral Powder 02/22/2023 Provider: GLENNA MARQUEZ M.D. Diagnosis: as directed 1 to scops q day Last Documented On 02/22/2023 8:51AM By GUERDA Beavers LPN ; [facility] Medications Administered Includes: Administered [...] Last Documented: On 08/28/2023 10:50A M ; [facility] Results Includes: Results discussed [...] 12/09/2022 Last Documented On 4 10:45AM ; [facility] DME in home: 06/14/2022 Last Documented On 4 10:45AM ; [facility] DME in home: cane 06/14/2022 Last Documented On 4 10:45AM ; [facility] [PHQ-2] Patient Health Questionnaire 2 i tem total score: 17 (Scale: 0-6) 02/10/2021 Last Documented On 4 10:45AM ; [facility] Difficulty walking 02/10/2021 Last Documented On 4 10:45AM ; [facility] No consumption of alcohol 02/10/2021 Last Documented On 4 10:45AM ; [facility] Not using drugs 02/10/2021 Last Documented On 4 10:45AM ; [facility] Stopped smoking 40 years ago 12/23/2020 Last Documented On 4 10:45AM ; [facility] Current nonsmoker 07/10/2020 Last Documented On 4 10:45AM ; [facility] Former smoker Pt states he quit smoking over 50 yrs ago 07/10/2020 Last Documented On 4 10:45AM ; [facility] Feeling down, depressed, or hopeless in the last 2 weeks? 0 pt Not at all 07/01/2020 Last Documented On 4 10:45AM ; [facility] Lost interest or pleasure in doing thing s was 0 Not at all 07/01/2020 Last Documented On 4 10:45AM ; [facility] Not using alcohol 07/01/2020 Last Documented On 4 10:45AM ; [facility] Non-smoker 11/06/2019 Last Documented On 4 10:45AM ; [facility] No tobacco use prev hx of 50 pack years smoking at young age 0105/08/2019 Last Documented On 4 10:45AM ; [facility] Not using alcohol 11/03/2017 Last Documented On 4 10:45AM ; [facility] Smoking status : Former smoker 8 Last Documented On 4 10:45AM ; [facility] Lives alone 07/23/2012 Last Documented On 4 10:45AM ; [facility] Caffeine use 09/28/2011 Last Documented On 4 10:45AM ; [facility] Single 09/21/2011 Last Documented On 4 10:45AM ; [facility] Retired from work 07/07/2011 Last Documented On 4 10:45AM ; [facility] Abnormal diet TRY TO EAT HARDLY ANY RED MEAT. 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 Last Documented On 4 10:45AM ; [facility] Procedures and Surgical History Includes: Procedures from this encounter Procedures Code Diagnosis Performing Provider Service L ocation Service Date use of tobacco assessment performed 1000F Last Documented On 4 10:50AM ; [facility] review of medications documented 1160F Last Documented On 4 10:50AM ; [facility] Surgical History Last Updated No Pacemaker 02/10/2021 Last Documented On 4 10:45AM ; [facility] History of prostate surgery 09/2009 Last Documented On 4 10:45AM ; [facility] Medical History Includes: Medical History addressed during this encounter Description Last Updated Vaccine history 05/30/2023 Last Documented On 4 10:45AM ; [facility] No diagnosis of history of chronic obstr uctive pulmonary disease 12/09/2022 Last Documented On 4 10:45AM ; [facility] No diagnosis of history of diabetes fozia itus 12/09/2022 Last Documented On 4 10:45AM ; [facility] No history of Congestive Heart Failure 0 12/09/2022 Last Documented On 4 10:45AM ; [facility] Surgery prostate and bladder surgery 04/2022 Last Documented On 4 10:45AM ; [facility] Please list all illnesses/co nditions you have been diagnosed with: Cancer. Prostate and Bladder 02/10/2021 Last Documented On 4 10:45AM ; [facility] Back brace 02/10/2021 Last Documented On 4 10:45AM ; [facility] Currently wearing eyeglasses 02/10/2021 Last Documented On 4 10:45AM ; [facility] No Pain Pump 02/10/2021 Last Documented On 4 10:45AM ; [facility] No Spinal cord stimulator 02/10/2021 Last Documented On 4 10:45AM ; [facility] Please list all surgeries: Prostrate marilu e 2009. bladder. sept 201302/10/2021 Last Documented On 4 10:45AM ; [facility] Severe Pain 02/10/2021 Last Documented On 4 10:45AM ; [facility] Uses a cane for support 02/10/2021 Last Documented On 4 10:45AM ; [facility] No Contact with and (Suspected) exposure to COVID-19 07/01/2020 Last Documented On 4 10:45AM ; [facility] No fall 07/01/2020 Last Documented On 4 10:45AM ; [facility] Not using Opioids 07/01/2020 Last Documented On 4 10:45AM ; [facility] Denies a fear of falling. 05/08/2019 Last Documented On 4 10:45AM ; [facility] Has had no fall in the last 12 months. 0 05/08/2019 Last Documented On 4 10:45AM ; [facility] Medication compliance 07/23/2012 Last Documented On 4 10:45AM ; [facility] Taking medication 09/28/2011 Last Documented On 4 10:45AM ; [facility] Prostate Ca, SP Prostatectomy ~ Urology Dr Charlton 07/07/2011 Last Documented On 4 10:45AM ; [facility] History of essential hypertension 2011 Last Documented On 4 10:45AM ; [facility] History of hyperlipidemia 07/07/2011 Last Documented On 4 10:45AM ; [facility] History of hypertension 08/25/2010 Last Documented On 4 10:45AM ; [facility] Family History Includes: Family History addressed during this encounter Description Last Updated Family history of Cancer Breast Cancer 0 12/09/2022 Last Documented On 4 10:45AM ; [facility] Not using Opioids 12/09/2022 Last Documented On 4 10:45AM ; [facility] Fraternal history of family history of i schemic heart disease 02/10/2021 Last Documented On 4 10:45AM ; [facility] Fraternal history of coronary artery dis ease 08/04/2017 Last Documented On 4 10:45AM ; [facility] Family history reviewed - unchanged [facility] e last visit 11/06/2015 Last Documented On 4 10:45AM ; [facility] Fraternal history of cancer 04/29/2015 Last Documented On 4 10:45AM ; [facility] Fraternal history of heart disease 04/29 Last Documented On 4 10:45AM ; [facility] Maternal history of cancer 04/29/2015 Last Documented On 4 10:45AM ; [facility] Family history of cancer 07/07/2011 Last Documented On 4 10:45AM ; [facility] Family history of coronary artery diseas e 07/07/2011 Last Documented On 4 10:45AM ; [facility] Brother 69 years old [place] 8 YEARS AGO 08/25/2010 Last Documented On 4 10:45AM ; [facility] Father 1985 AT AGE 74- PUMA GEHRIG'S TYPE DISEASE 08/25/2010 Last Documented On 4 10:45AM ; [facility] Heart disease 08/25/2010 Last Documented On 4 10:45AM ; [facility] Mother 1995 AT AGE 72- BREAST CANCER 08/25/2010 Last Documented On 4 10:45AM ; [facility] Review of Systems Includes: Review of Systems [...] Active Last Documented On 4 10:45AM ; [facility] Allergy 12/22/2015 Active Last Documented On 4 10:45AM ; [facility] Encounters Encounter Provider Location Date Check-In Time Check-Out Time Diagnosis CHECK UP GLENNA MARQUEZ M.D. [facility] 08/28/19 24 10:42AM 11:19AM Essential Hypertension, Esophageal Reflux,Hyperl ipidemia,Atri al Fibrillation, Spinal Stenosis Lumbosacral,C onstipation Drug-induced, Chronic Renal Failure Insurance Includes: Active Insurance Policies Plan Name Member ID Group # Subscriber Relationship Effect shannon Dates 1 - MEDICARE PART A CLAIMS/NGS [id number] MARIANNA JUAN Self 2 - [facility] OPTIONS [id number] MARIANNA JUAN Self Clinical Notes Includes: Clinical Notes from this encounter * Progress note Date Encounter Last Documented by 08/28/2023 CHECK UP Last documented on 08/28/2023; 11:24 AM, GLENNA MARQUEZ M.D.; [facility] Active Problems & Conditions - I48.91 - [...]
[2024-05-21 08:00] VITALS: BP 148/87; PULSE 75; RESP 18; TEMP 36.3; O2SAT 97
[2024-05-21] MEDS: APIXABAN 2.5 MG TABLET 5 MG PO ×2 (08:45→21:11)
[2024-05-21] MEDS: PRAVASTATIN SODIUM 20 MG TABLET PO (08:46)
[2024-05-21] MEDS: LIDOCAINE 5% PATCH 1 PATCH TRANSDERM (08:47)
--- NOTE | 2024-05-21 10:57 | P.HP_ITS ---
H&P: HPI History of Present Illness Date/Time: 05/21/24 10:57 Chief Complaint: Back pain Narrative: This is an 79-year-old male with a significant past medical history of chronic lower back pain presented to the hospital with worsening back pain, swelling to his legs, and weakness. Patient states that he has a neighbor that has been assisting him with getting groceries any doing a few things at his house but he has been declining for some time. He is now requiring help with ADLs including bathing, walking, transfering. His neighbor Georgette has been helping him get placed at a fdc as he does not have anyone else to help him. He lives at home and does not have any children. He is also estranged from other family members. He was suppose to see a auto painter but when he arrived his blood pressure was significantly high and that required him to cancel the visit and seek care for his blood pressure. He reports that he was on Neurontin before and that did not help his pain. He also has not been getting much relief with his Claiborne at home. He states that his pain is more a cramping pain in his lower back and legs. He denies any shooting pain, numbness, or tingling down the legs. He does have weakness. Workup in the hospital included a lumbar spine CT which showed severe lumbar spondylosis, lumbar dextroscoliosis, bulge disc in L1-L2, L2-L3, L3-L4, L4-L5, L5-S1 , it was also noted he has moderate central canal stenosis in L4-L5. abdomen/pelvis CT was negative for any acute findings, showed a 2.5 cm cyst in the liver. Chest x-ray showed mild atelectasis at the lung bases, no acute findings. Initial labs shown a normal white blood cell count of 5.8, hemoglobin 12.3, creatinine 1.64, EGFR 41, proBNP 1390. UA was negative. Blood cultures were obtained and pending. Patient was given Rocephin and IV fluids while in the ED. Rocephin was discontinued as his UA was normal. Review of Systems Review of Systems: All systems reviewed & are unremarkable except as noted in HPI and below PMFSH Past Medical History Medical History CVA (cerebral vascular accident) Depression Cataracts, bilateral Glaucoma Hemorrhoids GERD (gastroesophageal reflux disease) BPH (benign prostatic hyperplasia) Peripheral vascular disease Atrial fibrillation Hyperlipidemia Hypertension Chronic back pain Surgical History Surgical History History of bladder surgery H/O prostatectomy Social History Social History Smoking packs per day: 2 Smoking cigarettes per day: 40.0 Years smoked: 7 Smoking pack-years: 14.00 Smoking status: Former smoker Tobacco type: cigarettes, pipe and cigars Second hand tobacco smoke exposure: No Smoking end date: 05/20/73 Alcohol intake: never Substance use: never Substance use type: does not use Do You Feel Safe in your Home?: No Lack of Transportation: YES Lack of Food: Never True Current Housing: I Have Housing Concerned About Future Housing: No Difficulty Paying Gas/Electric Bills: No Difficulty Paying for Meds: No Currently Unemployed: No Education: Bachelor's Degree Difficulty w/ Childcare or Family Care: No Spiritual care concerns: No Meds Home Medications and Allergies Home Medications ?Medication ?Instructions ?Recorded ?Confirmed ?Type apixaban 5 mg tablet (Eliquis) 5 mg PO Q12H 05/20/24 05/20/24 History hydrocodone 5 mg-acetaminophen 325 1 tablet PO Q12H 05/20/24 05/20/24 History mg tablet lisinopril 20 mg tablet 20 mg PO DAILY 05/20/24 05/20/24 History pravastatin 20 mg tablet 20 mg PO DAILY 05/20/24 05/20/24 History Allergies Allergy/AdvReac Type Severity Reaction Status Date / Time No Known Allergies Allergy Verified 05/20/24 13:41 Vital Signs Vital Signs - 24 hr 05/20/24 13:21 05/20/24 14:00 05/20/24 15:00 Temperature 97.6 F Pulse Rate 87 80 76 Respiratory Rate 17 Blood Pressure 153/101 H 155/98 H 157/99 H Pulse Oximetry 97 98 99 Oxygen Delivery Room Air Room Air Room Air 05/20/24 16:00 05/20/24 16:30 05/21/24 00:00 Temperature 97.8 F Pulse Rate 75 75 73 Respiratory Rate 20 16 Blood Pressure 149/99 H 148/97 H 127/87 Pulse Oximetry 99 99 97 Oxygen Delivery Room Air Room Air Room Air 05/21/24 08:00 Temperature 97.4 F L Pulse Rate 75 Respiratory Rate 18 Blood Pressure 148/87 H Pulse Oximetry 97 Oxygen Delivery Room Air Exam Narrative: General: In no acute distress, well nourished Head: atraumatic, no encephalopathy Eyes: PERRLA, sclera clear ENT: moist mucous membranes, nasal passages clear Neck: supple, no JVD, no adenopathy, trachea midline Cardiac: Normal S1 and S2. No murmur, gallops or friction rubs, peripheral pulses intact. Respiratory: Lungs clear to auscultation, no adventitious lung sounds, currently on room air. Gastrointestinal: soft, non-distended, non-tender, normoactive bowel sounds. : voiding without difficulty. Extremities: moves all extremities well, no edema Skin: clean, dry, intact. No wounds or lesions. Neuro: Alert and oriented x4, cranial nerves intact, no neuro deficits. Psych: tearful at times, interactive H&P: Results Labs Labs: Short CBC 05/20/24 05/21/24 Range/Units 14:23 05:18 WBC 5.8 8.2 (4.8-10.8) K/mm3 Hgb 12.3 L 11.4 L (12.4-15.3) g/dL Hct 37.1 35.3 L (37.0-46.0) % Plt Count 163 146 L (150-420) K/mm3 BMP 05/20/24 05/21/24 14:23 05:18 Sodium 138 140 Potassium 4.3 3.8 Chloride 101 104 Carbon Dioxide 26 26 BUN 42 H 35 H Creatinine 1.64 H 1.47 H Glucose 125 H 92 Calcium 9.2 8.3 L Cardiac Enzymes 05/20/24 Range/Units 14:23 Troponin I 9.4 (0.00-60.4) ng/L Liver Function 05/20/24 05/21/24 Range/Units 14:23 05:18 Total Bilirubin 0.9 0.8 (0.00-1.00) mg/dL AST 21 19 (15-37) U/L ALT 32 30 (16-63) U/L Alkaline Phosphatase 85 78 (46-116) U/L Albumin 4.1 3.6 (3.4-5.0) g/dL Urine 05/20/24 Range/Units 13:34 Urine Color Light yellow (Yellow) Urine Appearance Clear (Clear) Urine pH 7.0 (5.0-8.0) Ur Specific [place] 1.015 (1.010-1.020) Urine Protein Negative (Negative) Urine Glucose (UA) Negative (Negative) Imaging lumbar spine CT: Radiologist's impression: EXAMINATION: CT lumbar spine wo con DATE: 05/20/2024 13:58 INDICATION: Low back pain. TECHNIQUE: Computed tomography (CT) of the lumbar spine was performed without intravenous contrast. Automated exposure control and iterative reconstruction technique were employed. The dose-length product was 892.54 mGy-cm. COMPARISON: None FINDINGS: There is 12 degrees dextroscoliosis of lumbar spine. There is mild chronic height loss of T10-T12 vertebral bodies. There are Schmorl's nodes at multiple levels. There is mildly decreased disc height at T11-T12 and T12-L1, moderately decreased disc height at L1-L2 and L2-L3, severely decreased disc height at L3-L4 and L4-L5, and moderately decreased disc height at L5-S1. Osseous central spinal canal is developmentally small. The following disc levels are specifically discussed: L1-L2: The disc is bulging. There is severe bilateral facet joint osteoarthritis. There is mild bilateral neural foraminal stenosis. There is mild central canal stenosis. L2-L3: The disc is bulging. There is moderate bilateral facet joint osteoarthritis. There is moderate right and mild left neural foraminal stenosis. There is mild central canal stenosis. L3-L4: The disc is bulging. There is severe bilateral facet joint osteoarthritis. There is moderate bilateral neural foraminal stenosis. There is mild central canal stenosis. L4-L5: The disc is bulging. There is severe bilateral facet joint osteoarthritis. There is moderate bilateral neural foraminal stenosis. There is moderate central canal stenosis. L5-S1: The disc is bulging. There is severe bilateral facet joint osteoarthritis. There is mild bilateral neural foraminal stenosis. There is mild central canal stenosis. IMPRESSION: 1. Severe lumbar spondylosis. 2. Lumbar dextroscoliosis. Reviewed, dictated and finalized at location A. EAR LOGGING ENGINEER abdomen/pelvis CT: Radiologist's impression: EXAMINATION: CT abdomen pelvis wo con DATE: 05/20/2024 13:59 INDICATION: Constipation and diarrhea. Generalized abdominal pain. TECHNIQUE: Computed tomography (CT) of the abdomen and pelvis was performed without intravenous contrast. Automated exposure control and iterative reconstruction technique were employed. The dose-length product was 388.22 mGy- cm. COMPARISON: None. FINDINGS: The visualized portions of lung bases demonstrate mild atelectasis and mild chronic lung disease. No pleural effusion. There is left atrial enlargement of the heart. There are coronary artery calcifications. No pericardial effusion. There is a 2.5 cm cyst in the liver. The gallbladder, spleen, pancreas, adrenal glands, and right kidney are normal. There is cortical thinning of left kidney. There are no dilated loops of bowel. There is a moderate volume of stool in the colon. The appendix is normal. There are no pathologically enlarged lymph nodes. There is no free intraperitoneal fluid. There is severe lumbar spondylosis. IMPRESSION: 1. No etiology for the patient's symptoms. Reviewed, dictated and finalized at location A. EAR LOGGING ENGINEER Chest x-ray: Radiologist's impression: EXAMINATION: XR chest 1V DATE: 05/20/2024 14:00 INDICATION: Weakness. Leg edema. TECHNIQUE: A single frontal view of the chest was obtained. COMPARISON: CT abdomen and pelvis 05/20/2024 FINDINGS: The lung apices are excluded. There is mild atelectasis at the lung bases. No pleural effusion or pneumothorax. The heart size is normal. IMPRESSION: 1. Mild atelectasis at the lung bases. 2. Lung apices excluded. Reviewed, dictated and finalized at location A. EAR LOGGING ENGINEER Assessment and Plan Assessment and plan (1) SIENNA (acute kidney injury): Code(s): N17.9 - Acute kidney failure, unspecified Status: Acute Assessment and Plan: * initial creatinine 1.64, EGFR 41 * today creatinine 1.47, EGFR 46 * hold lisinopril for now * unknown baseline * patient denies history chronic kidney disease (2) Weakness: Code(s): R53.1 - Weakness Status: Acute Assessment and Plan: * continue fall precautions * PT and OT ordered (3) Chronic back pain: Code(s): M54.9 - Dorsalgia, unspecified; G89.29 - Other chronic pain Status: Acute Assessment and Plan: * Claiborne changed to Percocet 5/325 q6h * Will give Morphine 15 mg ER BID * morphine 2 mg ordered for breakthrough pain 7 through 10 only * lidocaine patch ordered (4) Hypertension: Code(s): I10 - Essential (primary) hypertension Status: Acute Assessment and Plan: * blood pressure ranging 127/87 to 148/87 * lisinopril held due to SIENNA (5) Hyperlipidemia: Code(s): E78.5 - Hyperlipidemia, unspecified Status: Acute Assessment and Plan: * continue pravastatin (6) Atrial fibrillation: Code(s): I48.91 - Unspecified atrial fibrillation Status: Acute Assessment and Plan: * continue Eliquis * not currently on anything for rate control (7) BPH (benign prostatic hyperplasia): Code(s): N40.0 - Benign prostatic hyperplasia without lower urinary tract symptoms Status: Acute Assessment and Plan: * patient had prostatectomy (8) GERD (gastroesophageal reflux disease): Code(s): K21.9 - Gastro-esophageal reflux disease without esophagitis Status: Acute Assessment and Plan: * Will start Protonix Quality VTE Prophylaxis VTE prophylaxis: pharmacologic ordered Hospitalist MIPS Advance Care Plan I have confirmed that the patient's Advanced Care Plan is present, code status is documented, or surrogate decision maker is listed in patient medical record.: Yes Medication Reconciliation I have utilized all available resources to obtain, update and review the patients current medications (includes all prescriptions, OTC, herbals, cannabis, and nutritional supplements).: Yes
[2024-05-21 16:00] VITALS: BP 158/94; PULSE 77; RESP 16; TEMP 36.3; O2SAT 97
[2024-05-21 20:00] VITALS: PULSE 66; RESP 16; O2SAT 97
[2024-05-21] MEDS: MORPHINE SULFATE (*CRX) 15 MG TABCR PO (21:11)
[2024-05-22] VITALS: BP 154/98; PULSE 70; RESP 18; TEMP 36.4; O2SAT 98
[2024-05-22] MEDS: MORPHINE SULFATE (*CRX) 2 MG/ML INJ IV PUSH ×2 (01:34→11:09)
[2024-05-22] MEDS: oxyCODONE/ACETAMINOPHEN (*CRX) 5-325 MG TABLET 1 TABLET PO ×3 (04:56→13:04)
[2024-05-22 05:51] LABS: Basophils Absolute Auto 0.03 K/mm3 (0.00-0.10); Basophils Percent Auto 0.4 % (0.0-1.0); Eosinophils Absolute Auto 0.14 K/mm3 (0.02-0.50); Eosinophils Percent Auto 1.7 % (1.0-6.0); Hematocrit 37.1 % (37.0-46.0); Hemoglobin 11.7 g/dL (12.4-15.3); Immature Granulocyte Absolute 0.04 K/mm3 (0.00-0.00); Immature Granulocyte Percent A 0.5 % (0.0-0.0); Lymphocytes Absolute Auto 1.05 K/mm3 (1.10-4.50); Mean Corpuscular HGB Conc 31.5 g/dL (32-36); Mean Corpuscular Volume 101.4 fL (78.0-102.0); Mean Platelet Volume 10.8 fl (8.7-11.0); Monocytes Absolute Auto 0.93 K/mm3 (0.10-0.90); Monocytes Percent Auto 11.5 % (2.0-11.0); Neutrophils Absolute Auto 5.88 K/mm3 (1.70-7.20); Neutrophils Percent Auto 72.9 % (50.0-70.0); Platelet Count Result 139 K/mm3 (150-420); Red Blood Count 3.66 M/mm3 (4.70-6.10); White Blood Count 8.1 K/mm3 (4.8-10.8)
[2024-05-22 06:04] LABS: Alanine Aminotransferase 31 U/L (16-63); Albumin Level 3.6 g/dL (3.4-5.0); Alkaline Phosphatase 73 U/L (46-116); Anion Gap 12 mmol/L (4-12); Aspartate Amino Transferase 20 U/L (15-37); Bilirubin,Total 0.9 mg/dL (0.00-1.00); Blood Urea Nitrogen 30 mg/dL (7-18); Calcium 8.6 mg/dL (8.5-10.1); Carbon Dioxide 24 mmol/L (21-32); Chloride 103 mmol/L (98-108); Estimated CRCL calculation 36 ml/min; Estimated Glomerular Filt Rate 46; Glucose 91 mg/dL (70-99); Osmolality Calculated 294 mOsm/kg (285-295); Potassium 3.9 mmol/L (3.5-5.1); Sodium 139 mmol/L (136-145); Total Protein 6.5 g/dL (6.4-8.2)
[2024-05-22 08:00] VITALS: BP 150/90; PULSE 82; RESP 18; TEMP 36.2; O2SAT 96
[2024-05-22] MEDS: APIXABAN 2.5 MG TABLET 5 MG PO (09:08)
[2024-05-22] MEDS: PRAVASTATIN SODIUM 20 MG TABLET PO (09:08)
[2024-05-22] MEDS: MORPHINE SULFATE (*CRX) 15 MG TABCR PO (09:08)
[2024-05-22] MEDS: PANTOPRAZOLE 40 MG TABLET PO (09:08)
[2024-05-22] MEDS: LIDOCAINE 5% PATCH 1 PATCH TRANSDERM (09:08)
--- NOTE | 2024-05-22 11:12 | P.DS_ITS ---
DS: Admitting Diagnosis Discharge Date 05/22/2024 Admitting Diagnosis Back pain/immobility DS: Discharge Diagnosis Discharge Diagnosis (1) SIENNA (acute kidney injury): Code(s): N17.9 - Acute kidney failure, unspecified Status: Acute Assessment and Plan: * initial creatinine 1.64, EGFR 41 * today creatinine 1.47, EGFR 46 Discharged on amlodipine D/C lisinopril (2) Weakness: Code(s): R53.1 - Weakness Status: Acute Assessment and Plan: * continue fall precautions * PT and OT ordered (3) Chronic back pain: Code(s): M54.9 - Dorsalgia, unspecified; G89.29 - Other chronic pain Status: Acute Assessment and Plan: * Spencer changed to Percocet 5/325 q6h * Will give Morphine 15 mg ER BID * morphine 2 mg ordered for breakthrough pain 7 through 10 only * lidocaine patch ordered Will need follow-up with pain specialist and added prednisone for 5 days (4) Hypertension: Code(s): I10 - Essential (primary) hypertension Status: Acute Assessment and Plan: Switched to amlodipine (5) Hyperlipidemia: Code(s): E78.5 - Hyperlipidemia, unspecified Status: Acute Assessment and Plan: * continue pravastatin (6) Atrial fibrillation: Code(s): I48.91 - Unspecified atrial fibrillation Status: Acute Assessment and Plan: * continue Eliquis * not currently on anything for rate control (7) BPH (benign prostatic hyperplasia): Code(s): N40.0 - Benign prostatic hyperplasia without lower urinary tract symptoms Status: Acute Assessment and Plan: * patient had prostatectomy (8) GERD (gastroesophageal reflux disease): Code(s): K21.9 - Gastro-esophageal reflux disease without esophagitis Status: Acute Plan Disposition: Discharge SNF for PT/OT DS: Summary Hospital Course Reason for hospitalization: Back pain/Immobility Hospital Course: Patient was a 79-year-old male with a significant past medical history of chronic lower back pain presented to the hospital with worsening back pain, swelling to his legs, and weakness. Patient states that he has a neighbor that has been assisting him with getting groceries any doing a few things at his house but he has been declining for some time. He is now requiring help with ADLs including bathing, walking, transferring. His neighbor Georgette has been helping him get placed at a intermediate as he does not have anyone else to help him. He lives at home and does not have any children. He is also estranged from other family members. He was suppose to see a bobbin painter but when he arrived his blood pressure was significantly high and that required him to cancel the visit and seek care for his blood pressure. He reports that he was on Neurontin before and that did not help his pain. He also has not been getting much relief with his Spencer at home. He states that his pain is more a cramping pain in his lower back and legs. He denies any shooting pain, numbness, or tingling down the legs. He does have weakness. Workup in the hospital included a lumbar spine CT which showed severe lumbar spondylosis, lumbar dextroscoliosis, bulge disc in L1-L2, L2-L3, L3-L4, L4-L5, L5-S1 , it was also noted he has moderate central canal stenosis in L4-L5. abdomen/pelvis CT was negative for any acute findings, showed a 2.5 cm cyst in the liver. Chest x-ray showed mild atelectasis at the lung bases, no acute findings. Initial labs shown a normal white blood cell count of 5.8, hemoglobin 12.3, creatinine 1.64, EGFR 41, proBNP 1390. UA was negative. Blood cultures were obtained and pending. Patient started on pain control medication and evaluation by PT/OT who recommended SNF and patient agreed. Patient was discharged to SNF with 5 days pain control and steroids and was instructed he would need to follow-up with his pain specialists for continued pain control for his severe back pain. He was in no acute distress at time of discharge and at beside updated. Patient was discharged to SNF Labs unremarkable and vitals stable upon discharge. Status at Discharge Functional status at discharge: uses cane/walker Overall status at discharge: patient is progressing back to baseline Time Spent with Patient Time attestation: Total time spent providing and/or coordinating discharge services: Time spent: Greater than 30 minutes Exam Narrative: General: In no acute distress, well nourished Head: atraumatic, no encephalopathy Eyes: PERRLA, sclera clear Cardiac: Normal S1 and S2. No murmur, gallops or friction rubs, peripheral pulses intact. Respiratory: Lungs clear to auscultation, no adventitious lung sounds, currently on room air. Gastrointestinal: soft, non-distended, non-tender, normoactive bowel sounds. Extremities: moves all extremities well, no edema Skin: clean, dry, intact. No wounds or lesions. Neuro: Alert and oriented x4, cranial nerves intact, no neuro deficits. DS: Data Data Completed and Pending Labs on day of discharge: Labs from last 24 hours 05/22/24 05:34 WBC 8.1 RBC 3.66 L Hgb 11.7 L Hct 37.1 MCV 101.4 MCH 32.0 H MCHC 31.5 L RDW 12.0 Plt Count 139 L MPV 10.8 Immature Gran % (Auto) 0.5 H Neut % (Auto) 72.9 H Lymph % (Auto) 13.0 L [place] % (Auto) 11.5 H Eos % (Auto) 1.7 Baso % (Auto) 0.4 Lymph # (Auto) 1.05 L [place] # (Auto) 0.93 H Eos # (Auto) 0.14 Baso # (Auto) 0.03 Abs Immat Gran (auto) 0.04 H Absolute Neuts (auto) 5.88 Absolute Nucleated RBC 0.00 Nucleated RBC % 0.0 Sodium 139 Potassium 3.9 Chloride 103 Carbon Dioxide 24 Anion Gap 12 BUN 30 H Creatinine 1.46 H Estim Creat Clear Calc 36 Estimated GFR 46 L Glucose 91 Calculated Osmolality 294 Calcium 8.6 Total Bilirubin 0.9 AST 20 ALT 31 Alkaline Phosphatase 73 Total Protein 6.5 Albumin 3.6 Preliminary micro results at discharge 05/20/24 14:24 Blood Culture - Preliminary Blood 05/20/24 14:22 Blood Culture - Preliminary Blood Imaging Radiologist's impression: EXAMINATION: CT lumbar spine wo con DATE: 05/20/2024 13:58 INDICATION: Low back pain. TECHNIQUE: Computed tomography (CT) of the lumbar spine was performed without intravenous contrast. Automated exposure control and iterative reconstruction technique were employed. The dose-length product was 892.54 mGy-cm. COMPARISON: None FINDINGS: There is 12 degrees dextroscoliosis of lumbar spine. There is mild chronic height loss of T10-T12 vertebral bodies. There are Schmorl's nodes at multiple levels. There is mildly decreased disc height at T11-T12 and T12-L1, moderately decreased disc height at L1-L2 and L2-L3, severely decreased disc height at L3-L4 and L4-L5, and moderately decreased disc height at L5-S1. O sseous central spinal canal is developmentally small. The following disc levels are specifically discussed: L1-L2: The disc is bulging. There is severe bilateral facet joint osteoarthritis. There is mild bilateral neural foraminal stenosis. There is mild central canal stenosis. L2-L3: The disc is bulging. There is moderate bilateral facet joint osteoarthritis. There is moderate right and mild left neural foraminal stenosis. There is mild central canal stenosis. L3-L4: The disc is bulging. There is severe bilateral facet joint osteoarthritis. There is moderate bilateral neural foraminal stenosis. There is mild central canal stenosis. L4-L5: The disc is bulging. There is severe bilateral facet joint osteoarthritis. There is moderate bilateral neural foraminal stenosis. There is moderate central canal stenosis. L5-S1: The disc is bulging. There is severe bilateral facet joint osteoarthritis. There is mild bilateral neural foraminal stenosis. There is mild central canal stenosis. IMPRESSION: 1. Severe lumbar spondylosis. 2. Lumbar dextroscoliosis. Discharge Plan Discharge Attending physician on discharge: Aristides Sagastume Discharging Clinician: Margo Chaney Anticipated Discharge Date/Time: 05/22/24 11:02 Patient Disposition: SNF Activity: as tolerated Diet: heart healthy Discharge Instructions: Chronic back pain * I have prescribed oral steroids and pain medication as needed * Continue with Physical and occupational therapy * Please request a referral from your primary care physician to a pain specialist for continued prescription and monitoring narcotics * Heart healthy diet How can you care for yourself at home? ? Keep track of any new symptoms or changes in your symptoms. ? Rest until you feel better. ? Be safe with medicines. Take your medicines exactly as prescribed. Call your doctor if you think you are having a problem with your medicine. ? Do not drive after taking a prescription pain medicine. ? Ensure to follow-up with primary care physician as indicated and provide updated medication list provided to you at discharge. When should you call for help? Call 911 anytime you think you may need emergency care. For example, call if: ? You passed out (lost consciousness). Call your doctor now or seek immediate medical care if: ? You have new symptoms like fever, difficulty breathing, Chest pain, vomiting, or rash. ? You have new or different pain. ? You are confused and are having trouble thinking clearly. ? Your symptoms are getting worse. Watch closely for changes in your health, and be sure to contact your doctor if: ? You do not get better as expected. Patient Instructions: Morphine, Slow Release (By mouth), Apixaban (By mouth), Fall Prevention for Older Adults (DC), Chronic Back Pain (DC) Patient Language: Luxembourgish Stand Alone Forms: General Discharge Information, [facility] Discharge Follow-up/Referrals: Kirit Aguirre [Other] (Please refer to pain specialist for chronic back pain) Discharge Medications: New acetaminophen 325 mg Tablet 650 mg PO Q4H PRN (Reason: Mild Pain (1-3) Or Fever) Qty: 10 0RF lidocaine [Lidoderm] 5 % Adhesive Patch,Medicated 1 patch transdermal DAILY Qty: 15 0RF oxycodone-acetaminophen 5-325 mg Tablet 1 tablet PO Q4H PRN (Reason: Pain Rated 4-6) Qty: 20 0RF morphine 15 mg Tablet Extended Release 15 mg PO Q12HR Qty: 10 0RF amlodipine [Norvasc] 5 mg tablet 5 mg PO DAILY Qty: 10 0RF prednisone 50 mg tablet 50 mg PO DAILY Qty: 5 0RF Continued pravastatin 20 mg tablet 20 mg PO DAILY Eliquis 5 mg tablet 5 mg PO Q12H Discontinued hydrocodone-acetaminophen 5-325 mg tablet 1 tablet PO Q12H lisinopril 20 mg tablet 20 mg PO DAILY Patient Comments: Called pharmacy to confirms meds, they inform he takes twice a day, patient then agrees that Yes he takes twice. Date of admission: 05/20/24 16:15 Primary Care Provider: Kirit Aguirre Admitting Provider: Aristides Sagastume Attending physician on admission: Margo Chaney Condition: Stable Quality VTE Prophylaxis VTE prophylaxis: pharmacologic ordered -Patient's previous records reviewed on admission -ER notes reviewed in detail on admission -discussed all findings and current treatment plan with patient/Family/POA -Consultations reviewed for recommendations -Patient's disposition for safe discharge discussed with renal case manager Dictation performed by [email or web address] direct speech recognition software, therefore cake wringer variants and typographical errors may occur. Hospitalist MIPS Heart Failure (Exclusion) Patient has history of Heart Transplant or Left Ventricular Assistive Device?: No IF YES, STOP HERE Heart Failure (Qualifier) Patient has current or prior documentation of LVEF less than or equal to 40%, or mod/servere depressed LVSF?: No IF NO, STOP HERE
--- NOTE | 2024-05-22 14:22 | PC.NURSE ---
Report called to Rosalina at [facility]. Discharge instruction paperwork sent with patient. Patient taken per wheelchair from floor to [facility].
--- NOTE | 2024-05-23 14:12 | PC.NURSE ---
Discharge back to SNF, no questions regarding dc instructions from staff
== END 2024-05-22 14:10 ==
LOC: CHSED 15:59 → CHS2ND 16:31
PROVIDERS: Nurse Practitioner Acute Care; Admitting Provider Internal Medicine; Emergency Provider Emergency Medicine; Visit Provider Nurse Practitioner Family
DX: N17.9 Acute kidney failure, unspecified (principal); R53.1 Weakness; M54.50 Low back pain, unspecified; G89.29 Other chronic pain; I10 Essential (primary) hypertension; E78.5 Hyperlipidemia, unspecified; I48.91 Unspecified atrial fibrillation; N40.0 Benign prostatic hyperplasia without lower urinary tract symptoms; K21.9 Gastro-esophageal reflux disease without esophagitis; I73.9 Peripheral vascular disease, unspecified; H40.9 Unspecified glaucoma; H26.9 Unspecified cataract; Z63.8 Other specified problems related to primary support group; Z86.73 Personal history of transient ischemic attack (TIA), and cerebral infarction without residual deficits; Z87.891 Personal history of nicotine dependence; Z79.01 Long term (current) use of anticoagulants; Z79.899 Other long term (current) drug therapy; Z90.79 Acquired absence of other genital organ(s)
CPT/HCPCS: 36415; 71045; 72131; 74176; 80053; 81003; 83605; 83735; 83880; 84484; 85025; 85610; 85730; 86140; 87040; 96361; 96365; 96374; 96376; 97161; 97165; 97535; 99285; A9270; G0378; J0696; J2270; J7030

== ENCOUNTER 2024-05-27 09:39 | Outpatient (CLI) | payer MEDICARE, SELFPAY ==
[2024-05-27 09:54] LABS: Hematocrit 36.2 % (37.0-46.0); Mean Corpuscular HGB Conc 33.1 g/dL (32-36); Mean Corpuscular Hemoglobin 32.1 pg (27.0-31.0); Mean Corpuscular Volume 96.8 fL (78.0-102.0); Mean Platelet Volume 10.3 fl (8.7-11.0); Platelet Count Result 185 K/mm3 (150-420); Red Blood Count 3.74 M/mm3 (4.70-6.10); Red Cell Distribution Width 12.3 % (11.6-14.4); White Blood Count 11.3 K/mm3 (4.8-10.8)
[2024-05-27 10:21] LABS: Anion Gap 11 mmol/L (4-12); Blood Urea Nitrogen 32 mg/dL (7-18); Calcium 8.8 mg/dL (8.5-10.1); Carbon Dioxide 27 mmol/L (21-32); Chloride 101 mmol/L (98-108); Estimated Glomerular Filt Rate 44; Glucose 134 mg/dL (70-99); Osmolality Calculated 296 mOsm/kg (285-295); Potassium 3.9 mmol/L (3.5-5.1); Sodium 139 mmol/L (136-145)
--- OUTSIDE RECORDS SUMMARY | 2024-05-27 12:27 | XMS_ITS | Clinical Summary ---
Author Organization [facility] Address [address] [place] [address] Phone Care Team Providers Care Equipment Maintenance Engineer Name Role Phone JIMMY PRICE, SAI Primary Care Provider [phone] JIMMY Andrews, GLENNA Macias Unavailable [phone] Reason for Visit and Chief Complaint CAROTID ULTRASOUND Problems Includes: Problems addressed during this encounter and other active Problems All Visits Onset Date Resolved Date Provider Condition S tatus Chronic Renal Failure 06/14/2022 MEGAN MARQUEZ M.D. Active Last Documented On 06/14/2022 11:26AM ; [facility] Note: Unchanged Constipation Drug-induced 02/18/2022 GLENNA MARQUEZ M.D. Active Last Documented On 02/18/2022 11:15AM ; [facility] Note: Unchanged Spinal Stenosis Lumbosacral 05/20/2021 GLENNA MARQUEZ M.D. Active Last Documented On 2 10:56AM ; [facility] Atrial Fibrillation 03/02/2021 GLENNA MARQUEZ M.D. Active Last Documented On 1 11:51AM ; [facility] Note: Unchanged Hyperlipidemia 08/04/2017 GLENNA MARQUEZ M.D. Active Last Documented On 8 10:00AM ; [facility] Note: Unchanged Esophageal Reflux 05/25/2012 GLENNA June Active Last Documented On 4 9:40AM ; [facility] Essential Hypertension 08/25/2010 GLENNA WHEELER M.D. Active Last Documented On 4 9:40AM ; [facility] Plan of Treatment No Plan of Treatment [...] 09/11/2023 10:36AM By SAI MARQUEZ MD ; [facility] Lisinopril 20 MG Oral Tablet 07/10/2023 Provider: GLENNA MARQUEZ M.D. Diagnosis: Essential (prima ry) hypertension TAKE 1 TABLET BY MOUTH TWICE DAILY Last Documented On 07/10/2023 3:00PM By SAI MARQUEZ MD ; [facility] Eliquis 5 MG Oral Tablet 07/10/2023 Provider: SAI MARQUEZ M.D. Diagnosis: Unspecified atri al fibrillation One tablet twice a day Last Documented On 07/10/2023 2:28PM By SAI MARQUEZ MD ; [facility] Naloxone HCl 4 MG/0.1ML Nasal Liquid 03/29/2023 Provider: GLENNA MARQUEZ M.D. Diagnosis: [facility] (curre nt) use of opiate analgesic as directed 4 mg nasally as needed Last Documented On 03/29/2023 11:32AM By SAI MARQUEZ MD ; [facility] Pravastatin Sodium 20 MG Oral Tablet 03/29/2023 Provider: GLENNA MARQUEZ M.D. Diagnosis: Hyperlipidemia, unspecified TAKE 1 TABLET BY MOUTH DAILY Last Documented On 03/29/2023 1:37PM By SAI MARQUEZ MD ; [facility] Suspended Medications MiraLax 17 GM/SCOOP Oral Powder 02/22/2023 Provider: GLENNA MARQUEZ M.D. Diagnosis: as directed 1 to scops q day Last Documented On 02/22/2023 8:51AM By GUERDA Beavers LPN ; [facility] Medications Administered Includes: Administered [...] OF EXTRACRANIAL ARTERIES; COMP BRAXTON (Professional Comp.) 57041 Occlusion and stenosis of bilateral carotid arteries ANNAMARIA JONES MD [facility] 09/18/2023 Last Documented On 4 10:18AM ; [facility] Medical History Includes: Medical History addressed during [...] Active Last Documented On 4 10:45AM ; [facility] Allergy 12/22/2015 Active Last Documented On 4 10:45AM ; [facility] Encounters Encounter Provider Location Date Check-In Time Check-Out Time Diagnosis CAROTID ULTRASOUND ANNAMARIA JONES MD [facility] 09/18/19 24 10:41AM 11:28AM Insurance Includes: Active Insurance Policies Plan Name Member ID Group # Subscriber Relationship Effect shannon Dates 1 - MEDICARE PART A CLAIMS/NGS [id number] MARIANNA Salas 2 - [facility] OPTIONS [id number] MARIANNA Salas Clinical Notes Includes: Clinical Notes from this encounter No Clinical Notes Recorded
--- OUTSIDE RECORDS SUMMARY | 2024-05-27 12:27 | XMS_ITS ---
Care Plan - [facility] Created on: May 27, 2024 DRAKEMARIANNA : 1945 Sex: Male Author Organization [facility] Address [address] [place] [address] Phone Care Team Providers Care Od Grinder Operator Name Role Phone JIMMY PRICE, SAI Primary Care Provider [phone] JIMMY Andrews, GLENNA Macias Unavailable [phone]
--- OUTSIDE RECORDS SUMMARY | 2024-05-27 12:27 | XMS_ITS | Clinical Summary ---
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 Active Last Documented On 02/18/2022 11:15AM ; [facility] Note: Unchanged Spinal Stenosis Lumbosacral 05/20/2021 GLENNA MARQUEZ M.D. Active Last Documented On 2 10:56AM ; [facility] Atrial Fibrillation 03/02/2021 GLENNA MARQUEZ M.D. Active Last Documented On 1 11:51AM ; [facility] Note: Unchanged Hyperlipidemia 08/04/2017 GLENNA MARQUEZ M.D. Active Last Documented On 8 10:00AM ; [facility] Note: Unchanged Esophageal Reflux 05/25/2012 GLENNA June Active Last Documented On 4 9:40AM ; [facility] Hyperlipidemia 08/25/2010 GLENNA MARQUEZ M.D. Inactive Last Documented On 5 10:50AM ; [facility] Essential Hypertension 08/25/2010 GLENNA WHEELER M.D. Active Last Documented On 4 9:40AM ; [facility] Plan of Treatment - Monitor Blood Pressure at home - Last Documented On 05/30/2023 11:25AM ; [facility] - Return to the clinic if condition worsens or new symptoms arise - Last Documented On 05/30/2023 11:25AM ; [facility] - Continue current medication - Last Documented On 05/30/2023 11:25AM ; [facility] - Modify drug dosage Lisinopril to 20 mg 2 x a day - Last Documented On 05/30/2023 11:25AM ; [facility] - Patient to call if problem develops - Last Documented On 05/30/2023 11:25AM ; [facility] Assessments Includes: Assessments from this encounter Findings - I48.91 - Unspecified atrial fibrillation - Last Documented On 05/30/2023 11:25AM ; [facility] - I10 - Essential (primary) hypertension - Last Documented On 05/30/2023 11:25AM ; [facility] - K21.9 - Gastro-esophageal reflux disease without esophagitis - Last Documented On 05/30/2023 11:25AM ; [facility] - K59.03 - Drug induced constipation - Last Documented On 05/30/2023 11:25AM ; [facility] - N18.9 - Chronic kidney disease, unspecified - Last Documented On 05/30/2023 11:25AM ; [facility] - E78.5 - Hyperlipidemia, unspecified - Last Documented On 05/30/2023 11:25AM ; [facility] - M48.07 - Spinal stenosis, lumbosacral region - Last Documented On 05/30/2023 11:25AM ; [facility] Medical Equipment - Implanted Devices Includes: Current Devices No Medical Equipment Recorded Medications Includes: Medications discussed during this encounter and other current Medications Discontinued / Stopped on this date GLENNA MARQUEZ M.D. on 11/17/2022 Movantik 25 MG Oral Tablet Provider: Atul MARQUEZ M.D. Diagnosis: Drug induced con stipation Last Documented On 05/30/2023 11:18AM By SAI MARQUEZ MD ; [facility] New / Renewed during this visit GLENNA MARQUEZ M.D. on 05/30/2023 Lisinopril 20 MG Oral Tablet Provider: GLENNA MARQUEZ M.D. 90 day supply: 180 tablet, 0 refills Diagnosis: Essential (primary) hypertension One tablet twice a day Pharmacy: [address] [phone] - Last Documented On 07/10/2023 2:02PM By SAI MARQUEZ MD ; [facility] Current Medications (continue as prescribed) HYDROcodone-Acetaminophen 7. 5-325 MG Oral Tablet 09/11/2023 Provider: GLENNA MARQUEZ M.D. Diagnosis: Spinal stenosis, lumbosacral region Take one four times a day as needed Last Documented On 09/11/2023 10:36AM By SAI MARQUEZ MD ; [facility] Lisinopril 20 MG Oral Tablet 07/10/2023 Provider: GLENNA MARQUEZ M.D. Diagnosis: Essential (prima ry) hypertension TAKE 1 TABLET BY MOUTH TWICE DAILY Last Documented On 07/10/2023 3:00PM By SAI MARQUEZ MD ; [facility] Eliquis 5 MG Oral Tablet 07/10/2023 Provider: SAI MARQUEZ M.D. Diagnosis: Unspecified atri al fibrillation One tablet twice a day Last Documented On 07/10/2023 2:28PM By SAI MARQUEZ MD ; [facility] Naloxone HCl 4 MG/0.1ML Nasal Liquid 03/29/2023 Provider: GLENNA MARQUEZ M.D. Diagnosis: correction (curre nt) use of opiate analgesic as directed 4 mg nasally as needed Last Documented On 03/29/2023 11:32AM By SAI MARQUEZ MD ; [facility] Pravastatin Sodium 20 MG Oral Tablet 03/29/2023 Provider: GLENNA MARQUEZ M.D. Diagnosis: Hyperlipidemia, unspecified TAKE 1 TABLET BY MOUTH DAILY Last Documented On 03/29/2023 1:37PM By SAI MARQUEZ MD ; [facility] Suspended Medications MiraLax 17 GM/SCOOP Oral Powder 02/22/2023 Provider: GLENNA MARQUEZ M.D. Diagnosis: as directed 1 to scops q day Last Documented On 02/22/2023 8:51AM By GUERDA Beavers LPN ; [facility] Medications Administered Includes: Administered Medications from this [...] Documented: On 05/30/2023 11:05A M ; [facility] Results Includes: Results discussed during this encounter CBC WITH DIFF [facility] La boratory Ordered by GLENNA Coronel on 05/11/2023 [address] [facility], [place], [address] Collected: 05/26/2023 Report ed: 05/26/2023 11:17 tel: Last Documented On 4 12:04PM ; [facility] Reviewed by GLENNA MARQUEZ M.D. on 05/26/2023; All test results are final unless otherwise noted. ALC 1.2 None Last Documented On 4 11:58AM ; [facility] Note: Responsible Observer: (HRG) ANC 4.3 None Last Documented On 4 11:58AM ; [facility] Note: Responsible Observer: (HRG) BASO# 0.02 th/uL (0.00 - 0.20) None Last Documented On 4 11:58AM ; [facility] Note: Responsible Observer: (HRG) BASO% 0.3 % (0.0 - 2.0) None Last Documented On 4 11:58AM ; [facility] Note: Responsible Observer: (HRG) CBC WITH DIFF See Note None Last Documented On 4 11:58AM ; [facility] Note: CBC (COMPLETE BLOOD COUNT)Responsi ble Observer: (HRG) DIFF (Y/N) NO None Last Documented On 4 11:58AM ; [facility] Note: Responsible Observer: (HRG) EOS# 0.23 th/uL (0.00 - 0.45) None Last Documented On 4 11:58AM ; [facility] Note: Responsible Observer: (HRG) EOS% 3.6 % (0.0 - 9.0) None Last Documented On 4 11:58AM ; [facility] Note: Responsible Observer: (HRG) HCT 38.6 % (40.0 - 54.0) L (Low) Last Documented On 4 11:58AM ; [facility] Note: Responsible Observer: (HRG) HGB 12.9 g/dL (13.5 - 17.5) L (Low) Last Documented On 4 11:58AM ; [facility] Note: Responsible Observer: (HRG) IG# 0.04 th/ul (0.00 - 0.10) None Last Documented On 4 11:58AM ; [facility] Note: Responsible Observer: (HRG) IG% 0.6 % (0.0 - 0.5) H (High) Last Documented On 4 11:58AM ; [facility] Note: Responsible Observer: (HRG) LYMPH# 1.19 th/uL (1.00 - 4.80) None Last Documented On 4 11:58AM ; [facility] Note: Responsible Observer: (HRG) LYMPH% 18.7 % (14.0 - 45.0) None Last Documented On 4 11:58AM ; [facility] Note: Responsible Observer: (HRG) MCH 32.9 pg (25.0 - 35.0) None Last Documented On 4 11:58AM ; [facility] Note: Responsible Observer: (HRG) MCHC 33.4 g/dL (31.0 - 36.0) None Last Documented On 4 11:58AM ; [facility] Note: Responsible Observer: (HRG) MCV 98.5 fl (80.0 - 100) None Last Documented On 4 11:58AM ; [facility] Note: Responsible Observer: (HRG) MONO# 0.64 th/uL (0.00 - 0.80) None Last Documented On 4 11:58AM ; [facility] Note: Responsible Observer: (HRG) MONO% 10.1 % (1.0 - 10.0) H (High) Last Documented On 4 11:58AM ; [facility] Note: Responsible Observer: (HRG) MPV 12.7 fl (6.0 - 11.0) H (High) Last Documented On 4 11:58AM ; [facility] Note: Responsible Observer: (HRG) NEUT# 4.24 th/uL None Last Documented On 4 11:58AM ; [facility] Note: Responsible Observer: (HRG) NEUT% 66.7 % (45.0 - 76.0) None Last Documented On 4 11:58AM ; [facility] Note: Responsible Observer: (HRG) NRBC% 0.0 % (0.0 - 0.0) None Last Documented On 4 11:58AM ; [facility] Note: Responsible Observer: (HRG) PLT 141 th/uL (150 - 400) L (Low) Last Documented On 4 11:58AM ; [facility] Note: Responsible Observer: (HRG) RBC 3.92 mil/uL (4.50 - 5.90) L (Low) Last Documented On 4 11:58AM ; [facility] Note: Responsible Observer: (HRG) RDW 11.7 % (11.0 - 16.0) None Last Documented On 4 11:58AM ; [facility] Note: Responsible Observer: (HRG) WBC 6.4 th/uL (4.5 - 11.0) None Last Documented On 4 11:58AM ; [facility] Note: Responsible Observer: (HRG) BMP [facility] La boratory Ordered by GLENNA Coronel on 05/11/2023 [address] [facility], [place], [address] Collected: 05/26/2023 Report ed: 05/26/2023 11:34 tel: Last Documented On 4 12:04PM ; [facility] Reviewed by GLENNA MARQUEZ M.D. on 05/26/2023; All test results are final unless otherwise noted. AGE 78 YEARS None Last Documented On 4 11:58AM ; [facility] Note: Responsible Observer: (APR) ANION GAP 14.3 mmol/L (8.0 - 16.0) None Last Documented On 4 11:58AM ; [facility] Note: eGFR INTERPRETATION AGE AVG GFR 2 [...] Last Documented On 4 11:58AM ; [facility] Note: BASIC METABOLIC PANELResponsible O bserver: (APR) BUN 24 mg/dL (9 - 20) H (High) Last Documented On 4 11:58AM ; [facility] Note: Responsible Observer: (APR) CALCIUM 9.2 mg/dL (8.9 - 10.0) None Last Documented On 4 11:58AM ; [facility] Note: Responsible Observer: (APR) CHLORIDE 105 mmol/L (98 - 107) None Last Documented On 4 11:58AM ; [facility] Note: Responsible Observer: (APR) CREATININE 1.4 mg/dL (0.8 - 1.5) None Last Documented On 4 11:58AM ; [facility] Note: Responsible Observer: (APR) eGFR. 51 mL/min None Last Documented On 4 11:58AM ; [facility] Note: Responsible Observer: (APR) GLUCOSE 86 mg/dL (70 - 105) None Last Documented On 4 11:58AM ; [facility] Note: Responsible Observer: (APR) POTASSIUM 4.3 mmol/L (3.6 - 5.0) None Last Documented On 4 11:58AM ; [facility] Note: Responsible Observer: (APR) SODIUM 139 mmol/L (137 - 145) None Last Documented On 4 11:58AM ; [facility] Note: Responsible Observer: (APR) TCO2 24.0 mmol/L (22.0 - 30.0) None Last Documented On 4 11:58AM ; [facility] Note: Responsible Observer: (APR) History [...] Documented On 4 11:01AM ; [facility] DME in home: 06/14/2022 Last Documented On 4 11:01AM ; [facility] DME in home: cane 06/14/2022 Last Documented On 4 11:01AM ; [facility] [PHQ-2] Patient Health Questionnaire 2 i tem total score: 17 (Scale: 0-6) 02/10/2021 Last Documented On 4 11:01AM ; [facility] Difficulty walking 02/10/2021 Last Documented On 4 11:01AM ; [facility] No consumption of alcohol 02/10/2021 Last Documented On 4 11:01AM ; [facility] Not using drugs 02/10/2021 Last Documented On 4 11:01AM ; [facility] Stopped smoking 40 years ago 12/23/2020 Last Documented On 4 11:01AM ; [facility] Current nonsmoker 07/10/2020 Last Documented On 4 11:01AM ; [facility] Former smoker Pt states he quit smoking over 50 yrs ago 07/10/2020 Last Documented On 4 11:01AM ; [facility] Feeling down, depressed, or hopeless in the last 2 weeks? 0 pt Not at all 07/01/2020 Last Documented On 4 11:01AM ; [facility] Lost interest or pleasure in doing thing s was 0 Not at all 07/01/2020 Last Documented On 4 11:01AM ; [facility] Not using alcohol 07/01/2020 Last Documented On 4 11:01AM ; [facility] Non-smoker 11/06/2019 Last Documented On 4 11:01AM ; [facility] No tobacco use prev hx of 50 pack years smoking at young age 0105/08/2019 Last Documented On 4 11:01AM ; [facility] Not using alcohol 11/03/2017 Last Documented On 4 11:01AM ; [facility] Smoking status : Former smoker 8 Last Documented On 4 11:01AM ; [facility] Lives alone 07/23/2012 Last Documented On 4 11:01AM ; [facility] Caffeine use 09/28/2011 Last Documented On 4 11:01AM ; [facility] Single 09/21/2011 Last Documented On 4 11:01AM ; [facility] Retired from work 07/07/2011 Last Documented On 4 11:01AM ; [facility] Abnormal diet TRY TO EAT HARDLY ANY RED MEAT. EAT FISH,VEGETABLES, ETC 08/25/2010 Last Documented On 4 11:01AM ; [facility] Exercise frequency BIKE RIDE 1/2 HR, WA LK 1/2 HR, WEIGHTS 1/2 HR 08/25/2010 Last Documented On 4 11:01AM ; [facility] Occupation [employer] 200608/25/2010 Last Documented On 4 11:01AM ; [facility] Procedures and Surgical History Includes: Procedures from this encounter Procedures Code Diagnosis Performing Provider Service L ocation Service Date use of tobacco assessment performed 1000F Last Documented On 4 11:06AM ; [facility] review of medications documented 1160F Last Documented On 4 11:06AM ; [facility] Surgical History Last Updated No Pacemaker 02/10/2021 Last Documented On 4 11:01AM ; [facility] History of prostate surgery 09/2009 Last Documented On 4 11:01AM ; [facility] Medical History Includes: Medical History addressed during this encounter Description Last Updated Vaccine history 05/30/2023 Last Documented On 4 11:25AM ; [facility] Diastolic blood pressure 85 mmHg 023 Last Documented On 4 11:01AM ; [facility] Systolic blood pressure 150 mmHg 023 Last Documented On 4 11:01AM ; [facility] No diagnosis of history of chronic obstr uctive pulmonary disease 12/09/2022 Last Documented On 4 11:01AM ; [facility] No diagnosis of history of diabetes fozia itus 12/09/2022 Last Documented On 4 11:01AM ; [facility] No history of Congestive Heart Failure 0 12/09/2022 Last Documented On 4 11:01AM ; [facility] Surgery prostate and bladder surgery 04/2022 Last Documented On 4 11:01AM ; [facility] Please list all illnesses/co nditions you have been diagnosed with: Cancer. Prostate and Bladder 02/10/2021 Last Documented On 4 11:01AM ; [facility] Back brace 02/10/2021 Last Documented On 4 11:01AM ; [facility] Currently wearing eyeglasses 02/10/2021 Last Documented On 4 11:01AM ; [facility] No Pain Pump 02/10/2021 Last Documented On 4 11:01AM ; [facility] No Spinal cord stimulator 02/10/2021 Last Documented On 4 11:01AM ; [facility] Please list all surgeries: Prostrate marilu e 2009. bladder. dec 2013 02/10/2021 Last Documented On 4 11:01AM ; [facility] Severe Pain 02/10/2021 Last Documented On 4 11:01AM ; [facility] Uses a cane for support 02/10/2021 Last Documented On 4 11:01AM ; [facility] No Contact with and (Suspected) exposure to COVID-19 07/01/2020 Last Documented On 4 11:01AM ; [facility] No fall 07/01/2020 Last Documented On 4 11:01AM ; [facility] Not using Opioids 07/01/2020 Last Documented On 4 11:01AM ; [facility] Denies a fear of falling. 05/08/2019 Last Documented On 4 11:01AM ; [facility] Has had no fall in the last 12 months. 0 05/08/2019 Last Documented On 4 11:01AM ; [facility] Medication compliance 07/23/2012 Last Documented On 4 11:01AM ; [facility] Taking medication 09/28/2011 Last Documented On 4 11:01AM ; [facility] Prostate Ca, SP Prostatectomy ~ Urology Dr Charlton 07/07/2011 Last Documented On 4 11:01AM ; [facility] History of essential hypertension 2011 Last Documented On 4 11:01AM ; [facility] History of hyperlipidemia 07/07/2011 Last Documented On 4 11:01AM ; [facility] History of hypertension 08/25/2010 Last Documented On 4 11:01AM ; [facility] Family History Includes: Family History addressed during this encounter Description Last Updated Family history of Cancer Breast Cancer 0 12/09/2022 Last Documented On 4 11:01AM ; [facility] Not using Opioids 12/09/2022 Last Documented On 4 11:01AM ; [facility] Fraternal history of family history of i schemic heart disease 02/10/2021 Last Documented On 4 11:01AM ; [facility] Fraternal history of coronary artery dis ease 08/04/2017 Last Documented On 4 11:01AM ; [facility] Family history reviewed - unchanged sin e last visit 11/06/2015 Last Documented On 4 11:01AM ; [facility] Fraternal history of cancer 04/29/2015 Last Documented On 4 11:01AM ; [facility] Fraternal history of heart disease 04/29 Last Documented On 4 11:01AM ; [facility] Maternal history of cancer 04/29/2015 Last Documented On 4 11:01AM ; [facility] Family history of cancer 07/07/2011 Last Documented On 4 11:01AM ; [facility] Family history of coronary artery diseas e 07/07/2011 Last Documented On 4 11:01AM ; [facility] Brother 69 years old [facility] [place] 8 YEARS AGO 08/25/2010 Last Documented On 4 11:01AM ; [facility] Father 1985 AT AGE 74- PUMA GEHRIG'S TYPE DISEASE 08/25/2010 Last Documented On 4 11:01AM ; [facility] Heart disease 08/25/2010 Last Documented On 4 11:01AM ; [facility] Mother 1995 AT AGE 72- BREAST CANCER 08/25/2010 Last Documented On 4 11:01AM ; [facility] Review of Systems Includes: Review [...] Active Last Documented On 4 10:45AM ; [facility] [place] Allergy 12/22/2015 Active Last Documented On 4 10:45AM ; [facility] Encounters Encounter Provider Location Date Check-In Time Check-Out Time Diagnosis CHECK UP GLENNA MARQUEZ M.D. [facility] 05/30/19 24 10:57AM 11:15AM Essential Hypertension, Esophageal Reflux,Hyperl ipidemia,Atri al Fibrillation, Spinal Stenosis Lumbosacral,C onstipation Drug-induced, Chronic Renal Failure Insurance Includes: Active Insurance Policies Plan Name Member ID Group # Subscriber Relationship Effect shannon Dates 1 - MEDICARE PART A CLAIMS/NGS [id number] [facility] [email or web address] [facility] 2 - [facility] OPTIONS [id number] [facility] [email or web address] [facility] Clinical Notes Includes: Clinical Notes from this encounter * Progress note Date Encounter Last Documented by 05/30/2023 CHECK UP Last documented on 05/30/2023; 11:25 AM, GLENNA MARQUEZ M.D.; [facility] Active Problems & Conditions - [...] Work: Retired from work and occupation [employer]-RETIRED 2006. Marital: Single. Functional: Feeling down, depressed, [...]
--- OUTSIDE RECORDS SUMMARY | 2024-05-27 12:28 | XMS_ITS | Clinical Summary ---
Author Organization [facility] Address [address] [place] [address] Phone Care Team Providers Care Portable Grinding Machine Operator Name Role Phone JIMMY PRICE, SAI Primary Care Provider [phone] JIMMY Andrews, GLENNA Macias Unavailable [phone] Reason for Visit and Chief Complaint visit [...] Active Last Documented On 06/14/2022 11:26AM ; [facility] Note: Unchanged Constipation Drug-induced 02/18/2022 GLENNA MARQUEZ M.D. Active Last Documented On 02/18/2022 11:15AM ; [facility] Note: Unchanged Spinal Stenosis Lumbosacral 05/20/2021 GLENNA MARQUEZ M.D. Active Last Documented On 2 10:56AM ; [facility] Atrial Fibrillation 03/02/2021 GLENNA MARQUEZ M.D. Active Last Documented On 1 11:51AM ; [facility] Note: Unchanged Hyperlipidemia 08/04/2017 GLENNA MARQUEZ M.D. Active Last Documented On 8 10:00AM ; [facility] Note: Unchanged Esophageal Reflux 05/25/2012 GLENNA June Active Last Documented On 4 9:40AM ; [facility] Hyperlipidemia 08/25/2010 GLENNA MARQUEZ M.D. Inactive Last Documented On 5 10:50AM ; [facility] Essential Hypertension 08/25/2010 GLENNA Vieira.DJun Active Last Documented On 4 9:40AM ; [facility] Plan of Treatment - Return to the clinic if condition worsens or new symptoms arise - Last Documented On 08/28/2023 11:24AM ; [facility] - Continue current medication - Last Documented On 08/28/2023 11:24AM ; [facility] - Patient to call if problem develops - Last Documented On 08/28/2023 11:24AM ; [facility] Education and Decision Aids were provided during visit for: Education and counseling Adv ice to have regular exercise regimen Last Documented On 11:19AM ; [facility] Assessments Includes: Assessments from this encounter Findings - I48.91 - Unspecified atrial fibrillation - Last Documented On 08/28/2023 11:24AM ; [facility] - I10 - Essential (primary) hypertension - Last Documented On 08/28/2023 11:24AM ; [facility] - K21.9 - Gastro-esophageal reflux disease without esophagitis - Last Documented On 08/28/2023 11:24AM ; [facility] - K59.03 - Drug induced constipation - Last Documented On 08/28/2023 11:24AM ; [facility] - N18.9 - Chronic kidney disease, unspecified - Last Documented On 08/28/2023 11:24AM ; [facility] - E78.5 - Hyperlipidemia, unspecified - Last Documented On 08/28/2023 11:24AM ; [facility] - M48.07 - Spinal stenosis, lumbosacral region - Last Documented On 08/28/2023 11:24AM ; [facility] Instructions Includes: Instructions from this encounter Education and Decision Aids were provided during visit for: Education and counseling Adv ice to have regular exercise regimen Last Documented On 11:19AM ; [facility] Medical Equipment - Implanted Devices Includes: Current Devices No Medical Equipment Recorded Medications Includes: Medications discussed during this encounter and other current Medications Discontinued / Stopped on this date GLENNA MARQUEZ M.D. on 12/20/2022 Lisinopril 10 MG Oral Tablet Provider: GLENNA MARQUEZ M.D. Diagnosis: Essential (prima ry) hypertension Last Documented On 08/28/2023 11:06AM By SAI MARQUEZ MD ; [facility] Current Medications (continue as prescribed) HYDROcodone-Acetaminophen 7. 5-325 MG Oral Tablet 09/11/2023 Provider: GLENNA MARQUEZ M.D. Diagnosis: Spinal stenosis, lumbosacral region Take one four times a day as needed Last Documented On 09/11/2023 10:36AM By SAI MARQUEZ MD ; [facility] Lisinopril 20 MG Oral Tablet 07/10/2023 Provider: GLENNA MARQUEZ M.D. Diagnosis: Essential (prima ry) hypertension TAKE 1 TABLET BY MOUTH TWICE DAILY Last Documented On 07/10/2023 3:00PM By SAI MARQUEZ MD ; [facility] Eliquis 5 MG Oral Tablet 07/10/2023 Provider: SAI MARQUEZ M.D. Diagnosis: Unspecified atri al fibrillation One tablet twice a day Last Documented On 07/10/2023 2:28PM By SAI MARQUEZ MD ; [facility] Naloxone HCl 4 MG/0.1ML Nasal Liquid 03/29/2023 Provider: GLENNA MARQUEZ M.D. 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 Diagnosis: Hyperlipidemia, unspecified TAKE 1 TABLET BY MOUTH DAILY Last Documented On 03/29/2023 1:37PM By SAI MARQUEZ MD ; [facility] Suspended Medications MiraLax 17 GM/SCOOP Oral Powder 02/22/2023 Provider: GLENNA MARQUEZ M.D. Diagnosis: as directed 1 to scops q day Last Documented On 02/22/2023 8:51AM By GUERDA Beavers LPN ; [facility] Medications Administered Includes: Administered [...] Last Documented: On 08/28/2023 10:50A M ; [facility] Results Includes: Results discussed [...] Last Documented On 4 10:45AM ; [facility] DME in home: 06/14/2022 Last Documented On 4 10:45AM ; [facility] DME in home: cane 06/14/2022 Last Documented On 4 10:45AM ; [facility] [PHQ-2] Patient Health Questionnaire 2 i tem total score: 17 (Scale: 0-6) 02/10/2021 Last Documented On 4 10:45AM ; [facility] Difficulty walking 02/10/2021 Last Documented On 4 10:45AM ; [facility] No consumption of alcohol 02/10/2021 Last Documented On 4 10:45AM ; [facility] Not using drugs 02/10/2021 Last Documented On 4 10:45AM ; [facility] Stopped smoking 40 years ago 12/23/2020 Last Documented On 4 10:45AM ; [facility] Current nonsmoker 07/10/2020 Last Documented On 4 10:45AM ; [facility] Former smoker Pt states he quit smoking over 50 yrs ago 07/10/2020 Last Documented On 4 10:45AM ; [facility] Feeling down, depressed, or hopeless in the last 2 weeks? 0 pt Not at all 07/01/2020 Last Documented On 4 10:45AM ; [facility] Lost interest or pleasure in doing thing s was 0 Not at all 07/01/2020 Last Documented On 4 10:45AM ; [facility] Not using alcohol 07/01/2020 Last Documented On 4 10:45AM ; [facility] Non-smoker 11/06/2019 Last Documented On 4 10:45AM ; [facility] No tobacco use prev hx of 50 pack years smoking at young age 0105/08/2019 Last Documented On 4 10:45AM ; [facility] Not using alcohol 11/03/2017 Last Documented On 4 10:45AM ; [facility] Smoking status : Former smoker 8 Last Documented On 4 10:45AM ; [facility] Lives alone 07/23/2012 Last Documented On 4 10:45AM ; [facility] Caffeine use 09/28/2011 Last Documented On 4 10:45AM ; [facility] Single 09/21/2011 Last Documented On 4 10:45AM ; [facility] Retired from work 07/07/2011 Last Documented On 4 10:45AM ; [facility] Abnormal diet TRY TO EAT HARDLY ANY RED MEAT. EAT FISH,VEGETABLES, ETC 08/25/2010 Last Documented On 4 10:45AM ; [facility] Exercise frequency BIKE RIDE 1/2 HR, WAL K 1/2 HR, WEIGHTS 1/2 HR 08/25/2010 Last Documented On 4 10:45AM ; [facility] Occupation [employer]-RETIRED 200608/25/2010 Last Documented On 4 10:45AM ; [facility] Procedures and Surgical History Includes: Procedures from this encounter Procedures Code Diagnosis Performing Provider Service L ocation Service Date use of tobacco assessment performed 1000F Last Documented On 4 10:50AM ; [facility] review of medications documented 1160F Last Documented On 4 10:50AM ; [facility] Surgical History Last Updated No Pacemaker 02/10/2021 Last Documented On 4 10:45AM ; [facility] History of prostate surgery 09/2009 Last Documented On 4 10:45AM ; [facility] Medical History Includes: Medical History addressed during this encounter Description Last Updated Vaccine history 05/30/2023 Last Documented On 4 10:45AM ; [facility] No diagnosis of history of chronic obstr uctive pulmonary disease 12/09/2022 Last Documented On 4 10:45AM ; [facility] No diagnosis of history of diabetes fozia itus 12/09/2022 Last Documented On 4 10:45AM ; [facility] No history of Congestive Heart Failure 0 12/09/2022 Last Documented On 4 10:45AM ; [facility] Surgery prostate and bladder surgery 04/2022 Last Documented On 4 10:45AM ; [facility] Please list all illnesses/co nditions you have been diagnosed with: Cancer. Prostate and Bladder 02/10/2021 Last Documented On 4 10:45AM ; [facility] Back brace 02/10/2021 Last Documented On 4 10:45AM ; [facility] Currently wearing eyeglasses 02/10/2021 Last Documented On 4 10:45AM ; [facility] No Pain Pump 02/10/2021 Last Documented On 4 10:45AM ; [facility] No Spinal cord stimulator 02/10/2021 Last Documented On 4 10:45AM ; [facility] Please list all surgeries: Prostrate marilu e 2009. bladder. sept 201302/10/2021 Last Documented On 4 10:45AM ; [facility] Severe Pain 02/10/2021 Last Documented On 4 10:45AM ; [facility] Uses a cane for support 02/10/2021 Last Documented On 4 10:45AM ; [facility] No Contact with and (Suspected) exposure to COVID-19 07/01/2020 Last Documented On 4 10:45AM ; [facility] No fall 07/01/2020 Last Documented On 4 10:45AM ; [facility] Not using Opioids 07/01/2020 Last Documented On 4 10:45AM ; [facility] Denies a fear of falling. 05/08/2019 Last Documented On 4 10:45AM ; [facility] Has had no fall in the last 12 months. 0 05/08/2019 Last Documented On 4 10:45AM ; [facility] Medication compliance 07/23/2012 Last Documented On 4 10:45AM ; [facility] Taking medication 09/28/2011 Last Documented On 4 10:45AM ; [facility] Prostate Ca, SP Prostatectomy ~ Urology Dr Charlton 07/07/2011 Last Documented On 4 10:45AM ; [facility] History of essential hypertension 2011 Last Documented On 4 10:45AM ; [facility] History of hyperlipidemia 07/07/2011 Last Documented On 4 10:45AM ; [facility] History of hypertension 08/25/2010 Last Documented On 4 10:45AM ; [facility] Family History Includes: Family History addressed during this encounter Description Last Updated Family history of Cancer Breast Cancer 0 12/09/2022 Last Documented On 4 10:45AM ; [facility] Not using Opioids 12/09/2022 Last Documented On 4 10:45AM ; [facility] Fraternal history of family history of i schemic heart disease 02/10/2021 Last Documented On 4 10:45AM ; [facility] Fraternal history of coronary artery dis ease 08/04/2017 Last Documented On 4 10:45AM ; [facility] Family history reviewed - unchanged [facility] e last visit 11/06/2015 Last Documented On 4 10:45AM ; [facility] Fraternal history of cancer 04/29/2015 Last Documented On 4 10:45AM ; [facility] Fraternal history of heart disease 04/29 Last Documented On 4 10:45AM ; [facility] Maternal history of cancer 04/29/2015 Last Documented On 4 10:45AM ; [facility] Family history of cancer 07/07/2011 Last Documented On 4 10:45AM ; [facility] Family history of coronary artery diseas e 07/07/2011 Last Documented On 4 10:45AM ; [facility] Brother 69 years old [place] 8 YEARS AGO 08/25/2010 Last Documented On 4 10:45AM ; [facility] Father 1985 AT AGE 74- PUMA GEHRIG'S TYPE DISEASE 08/25/2010 Last Documented On 4 10:45AM ; [facility] Heart disease 08/25/2010 Last Documented On 4 10:45AM ; [facility] Mother 1995 AT AGE 72- BREAST CANCER 08/25/2010 Last Documented On 4 10:45AM ; [facility] Review of Systems Includes: Review of [...] Active Last Documented On 4 10:45AM ; [facility] Allergy 12/22/2015 Active Last Documented On 4 10:45AM ; [facility] Encounters Encounter Provider Location Date Check-In Time Check-Out Time Diagnosis CHECK UP GLENNA MARQUEZ M.D. [facility] 08/28/19 24 10:42AM 11:19AM Essential Hypertension, Esophageal Reflux,Hyperl ipidemia,Atri al Fibrillation, Spinal Stenosis Lumbosacral,C onstipation Drug-induced, Chronic Renal Failure Insurance Includes: Active Insurance Policies Plan Name Member ID Group # Subscriber Relationship Effect shannon Dates 1 - MEDICARE PART A CLAIMS/NGS [id number] MARIANNA JUAN Self 2 - [facility] [employer] [id number] MARIANNA JUAN Self Clinical Notes Includes: Clinical Notes from this encounter * Progress note Date Encounter Last Documented by 08/28/2023 CHECK UP Last documented on 08/28/2023; 11:24 AM, GLENNA MARQUEZ M.D.; [facility] Active Problems & Conditions - I48.91 [...]
--- OUTSIDE RECORDS SUMMARY | 2024-05-27 12:28 | XMS_ITS | Clinical Summary ---
Author Organization [facility] Address [address] [place] [address] Phone Care Team Providers Care Sql Application Developer Name Role Phone JIMMY PRICE, SAI Primary Care Provider [phone] JIMMY Andrews, GLENNA Macias Unavailable [phone] Reason for Visit and Chief Complaint [facility] CHECK UP Problems Includes: Problems addressed during this encounter and other active Problems All Visits Onset Date Resolved Date Provider Condition S tatus Chronic Renal Failure 06/14/2022 MEGAN MARQUEZ M.D. Active Last Documented On 06/14/2022 11:26AM ; [facility] Note: Unchanged Constipation Drug-induced 02/18/2022 GLENNA MARQUEZ M.D. Active Last Documented On 02/18/2022 11:15AM ; [facility] Note: Unchanged Spinal Stenosis Lumbosacral 05/20/2021 GLENNA MARQUEZ M.D. Active Last Documented On 2 10:56AM ; [facility] Atrial Fibrillation 03/02/2021 GLENNA MARQUEZ M.D. Active Last Documented On 1 11:51AM ; [facility] Note: Unchanged Hyperlipidemia 08/04/2017 GLENNA MARQUEZ M.D. Active Last Documented On 8 10:00AM ; [facility] Note: Unchanged Esophageal Reflux 05/25/2012 GLENNA June Active Last Documented On 4 9:40AM ; [facility] Essential Hypertension 08/25/2010 GLENNA WHEELER M.D. Active Last Documented On 4 9:40AM ; [facility] Plan of Treatment No Plan [...] 09/11/2023 10:36AM By SAI MARQUEZ MD ; [facility] Lisinopril 20 MG Oral Tablet 07/10/2023 Provider: GLENNA MARQUEZ M.D. Diagnosis: Essential (prima ry) hypertension TAKE 1 TABLET BY MOUTH TWICE DAILY Last Documented On 07/10/2023 3:00PM By SAI MARQUEZ MD ; [facility] Eliquis 5 MG Oral Tablet 07/10/2023 Provider: SAI MARQUEZ M.D. Diagnosis: Unspecified atri al fibrillation One tablet twice a day Last Documented On 07/10/2023 2:28PM By SAI MARQUEZ MD ; [facility] Naloxone HCl 4 MG/0.1ML Nasal Liquid 03/29/2023 Provider: GLENNA MARQUEZ M.D. 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 Diagnosis: Hyperlipidemia, unspecified TAKE 1 TABLET BY MOUTH DAILY Last Documented On 03/29/2023 1:37PM By SAI MARQUEZ MD ; [facility] Suspended Medications MiraLax 17 GM/SCOOP Oral Powder 02/22/2023 Provider: GLENNA MARQUEZ M.D. Diagnosis: as directed 1 to scops q day Last Documented On 02/22/2023 8:51AM By GUERDA Beavers LPN ; [facility] Medications Administered Includes: Administered [...] Active Last Documented On 4 10:45AM ; [facility] Allergy 12/22/2015 Active Last Documented On 4 10:45AM ; [facility] Encounters Encounter Provider Location Date Check-In Time Check- Out Time Diagnosis [facility] CENTER CHECK UP CALOS JONES MD [facility] 4 11:30AM 11:53AM Insurance Includes: Active Insurance Policies Plan Name Member ID Group # Subscriber Relationship Effect shannon Dates 1 - MEDICARE PART A CLAIMS/NGS [id number] MARIANNA Salas 2 - [facility] OPTIONS [id number] MARIANNA Salas Clinical Notes Includes: Clinical Notes from this encounter No Clinical Notes Recorded
--- OUTSIDE RECORDS SUMMARY | 2024-05-27 12:28 | XMS_ITS | Clinical Summary ---
Author Organization [facility] Address [address] [place] [address] Phone Care Team Providers Care Pcu Rn Name Role Phone JIMMY PRICE, SAI Primary Care Provider [phone] JIMMY Andrews, GLENNA Macias Unavailable [phone] Reason for Visit and Chief Complaint ECHOCARDIOGRAM Problems Includes: Problems addressed during this encounter and other active Problems All Visits Onset Date Resolved Date Provider Condition S tatus Chronic Renal Failure 06/14/2022 MEGAN MARQUEZ M.D. Active Last Documented On 06/14/2022 11:26AM ; [facility] Note: Unchanged Constipation Drug-induced 02/18/2022 GLENNA MARQUEZ M.D. Active Last Documented On 02/18/2022 11:15AM ; [facility] Note: Unchanged Spinal Stenosis Lumbosacral 05/20/2021 GLENNA MARQUEZ M.D. Active Last Documented On 2 10:56AM ; [facility] Atrial Fibrillation 03/02/2021 GLENNA MARQUEZ M.D. Active Last Documented On 1 11:51AM ; [facility] Note: Unchanged Hyperlipidemia 08/04/2017 GLENNA MARQUEZ M.D. Active Last Documented On 8 10:00AM ; [facility] Note: Unchanged Esophageal Reflux 05/25/2012 GLENNA June Active Last Documented On 4 9:40AM ; [facility] Essential Hypertension 08/25/2010 GLENNA WHEELER M.D. Active Last Documented On 4 9:40AM ; [facility] Plan of Treatment No Plan of Treatment [...] 09/11/2023 10:36AM By SAI MARQUEZ MD ; [facility] Lisinopril 20 MG Oral Tablet 07/10/2023 Provider: GLENNA MARQUEZ M.D. Diagnosis: Essential (prima ry) hypertension TAKE 1 TABLET BY MOUTH TWICE DAILY Last Documented On 07/10/2023 3:00PM By SAI MARQUEZ MD ; [facility] Eliquis 5 MG Oral Tablet 07/10/2023 Provider: SAI MARQUEZ M.D. Diagnosis: Unspecified atri al fibrillation One tablet twice a day Last Documented On 07/10/2023 2:28PM By SAI MARQUEZ MD ; [facility] Naloxone HCl 4 MG/0.1ML Nasal Liquid 03/29/2023 Provider: GLENNA MARQUEZ M.D. 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 Diagnosis: Hyperlipidemia, unspecified TAKE 1 TABLET BY MOUTH DAILY Last Documented On 03/29/2023 1:37PM By SAI MARQUEZ MD ; [facility] Suspended Medications MiraLax 17 GM/SCOOP Oral Powder 02/22/2023 Provider: GLENNA MARQUEZ M.D. Diagnosis: as directed 1 to scops q day Last Documented On 02/22/2023 8:51AM By GUERDA Beavers LPN ; [facility] Medications Administered Includes: [...] Date ECHOCARDIOGRAPHY- TRANSTHORAC W/ DOPPLER (Professional Comp.) 46901 Other persistent atrial fibrillation, Essential (primary) hypertension, Mixed hyperlipidemia, Rheumatic disorders of both mitral and tricuspid valves CALOS JONES MD [facility]- 08/25/2023 Last Documented On 4 1:23PM ; [facility] ELECTROCARDIAGRAM READING FEE (EKG) (DISTINCT PROCEDURAL SERVICE DIFFERENT SITE) [id number] Other persistent atrial fibrillation, Essential (primary) hypertension CALOS JONES MD [facility]- 08/25/2023 Last Documented On 4 1:23PM ; [facility] Medical History Includes: Medical History addressed [...] Active Last Documented On 4 10:45AM ; [facility] Allergy 12/22/2015 Active Last Documented On 4 10:45AM ; [facility] Encounters Encounter Provider Location Date Check-In Time Check-Out Time Diagnosis ECHOCARDIOGRAM ACLOS JONES MD [facility] 4 10:40AM 11:26AM Insurance Includes: Active Insurance Policies Plan Name Member ID Group # Subscriber Relationship Effect shannon Dates 1 - MEDICARE PART A CLAIMS/NGS [id number] MARIANNA Salas 2 - [facility] OPTIONS [id number] MARIANNA Salas Clinical Notes Includes: Clinical Notes from this encounter No Clinical Notes Recorded
== END 2024-05-27 09:40 | disposition home or self-care (01) ==
PROVIDERS: PCP Family Medicine; Visit Provider Family Medicine
DX: N17.9 Acute kidney failure, unspecified (principal); N10 Acute pyelonephritis; E87.8 Other disorders of electrolyte and fluid balance, not elsewhere classified; E86.0 Dehydration
CPT/HCPCS: 36415; 80048; 85027

== ENCOUNTER 2024-06-25 10:53 | Outpatient (CLI) | payer MEDICARE, SELFPAY ==
[2024-06-25 11:18] LABS: Basophils Absolute Auto 0.01 K/mm3 (0.00-0.10); Basophils Percent Auto 0.1 % (0.0-1.0); Eosinophils Absolute Auto 0.01 K/mm3 (0.02-0.50); Eosinophils Percent Auto 0.1 % (1.0-6.0); Hematocrit 36.2 % (37.0-46.0); Hemoglobin 12.2 g/dL (12.4-15.3); Immature Granulocyte Absolute 0.05 K/mm3 (0.00-0.00); Immature Granulocyte Percent A 0.5 % (0.0-0.0); Lymphocytes Absolute Auto 0.63 K/mm3 (1.10-4.50); Lymphocytes Percent Auto 6.7 % (18.0-42.0); Mean Corpuscular HGB Conc 33.7 g/dL (32-36); Mean Corpuscular Hemoglobin 31.7 pg (27.0-31.0); Mean Platelet Volume 10.5 fl (8.7-11.0); Monocytes Percent Auto 11.8 % (2.0-11.0); Neutrophils Absolute Auto 7.56 K/mm3 (1.70-7.20); Neutrophils Percent Auto 80.8 % (50.0-70.0); Platelet Count Result 202 K/mm3 (150-420); Red Blood Count 3.85 M/mm3 (4.70-6.10); Red Cell Distribution Width 11.5 % (11.6-14.4); White Blood Count 9.4 K/mm3 (4.8-10.8)
[2024-06-25 12:15] LABS: Alanine Aminotransferase 23 U/L (16-63); Albumin Level 4.1 g/dL (3.4-5.0); Alkaline Phosphatase 104 U/L (46-116); Anion Gap 8 mmol/L (4-12); Aspartate Amino Transferase 21 U/L (15-37); Bilirubin,Total 0.8 mg/dL (0.00-1.00); Blood Urea Nitrogen 29 mg/dL (7-18); Carbon Dioxide 27 mmol/L (21-32); Chloride 98 mmol/L (98-108); Estimated Glomerular Filt Rate 47; Glucose 121 mg/dL (70-99); Osmolality Calculated 282 mOsm/kg (285-295); Potassium 4.2 mmol/L (3.5-5.1); Sodium 133 mmol/L (136-145); Total Protein 6.8 g/dL (6.4-8.2)
--- OUTSIDE RECORDS SUMMARY | 2024-06-25 12:27 | XMS_ITS | Clinical Summary ---
Author Organization [facility] Address [address] [place] [address] Phone Care Team Providers Care Disintegrator Name Role Phone JIMMY PRICE, SAI Primary Care Provider [phone] JIMMY Andrews, GLENNA Macias Unavailable [phone] Reason for Visit and Chief Complaint ECHOCARDIOGRAM Problems Includes: Problems addressed during this encounter and other active Problems All Visits Onset Date Resolved Date Provider Condition S tatus Chronic Renal Failure 06/14/2022 MEGAN MARQUEZ M.D. Active Last Documented On 06/14/2022 11:26AM ; [facility] Note: Unchanged Constipation Drug-induced 02/18/2022 GLENNA MARQUEZ M.D. Active Last Documented On 02/18/2022 11:15AM ; [facility] Note: Unchanged Spinal Stenosis Lumbosacral 05/20/2021 GLENNA MARQUEZ M.D. Active Last Documented On 2 10:56AM ; [facility] Atrial Fibrillation 03/02/2021 GLENNA MARQUEZ M.D. Active Last Documented On 1 11:51AM ; [facility] Note: Unchanged Hyperlipidemia 08/04/2017 GLENNA MARQUEZ M.D. Active Last Documented On 8 10:00AM ; [facility] Note: Unchanged Esophageal Reflux 05/25/2012 GLENNA June Active Last Documented On 4 9:40AM ; [facility] Essential Hypertension 08/25/2010 GLENNA WHEELER M.D. Active Last Documented On 4 9:40AM ; [facility] Plan of Treatment No Plan of [...] 09/11/2023 10:36AM By SAI MARQUEZ MD ; [facility] Lisinopril 20 MG Oral Tablet 07/10/2023 Provider: GLENNA MARQUEZ M.D. Diagnosis: Essential (prima ry) hypertension TAKE 1 TABLET BY MOUTH TWICE DAILY Last Documented On 07/10/2023 3:00PM By SAI MARQUEZ MD ; [facility] Eliquis 5 MG Oral Tablet 07/10/2023 Provider: SAI MARQUEZ M.D. Diagnosis: Unspecified atri al fibrillation One tablet twice a day Last Documented On 07/10/2023 2:28PM By SAI MARQUEZ MD ; [facility] Naloxone HCl 4 MG/0.1ML Nasal Liquid 03/29/2023 Provider: GLENNA MARQUEZ M.D. 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 Diagnosis: Hyperlipidemia, unspecified TAKE 1 TABLET BY MOUTH DAILY Last Documented On 03/29/2023 1:37PM By SAI MARQUEZ MD ; [facility] Suspended Medications MiraLax 17 GM/SCOOP Oral Powder 02/22/2023 Provider: GLENNA MARQUEZ M.D. Diagnosis: as directed 1 to scops q day Last Documented On 02/22/2023 8:51AM By GUERDA Beavers LPN ; [facility] Medications Administered Includes: Administered [...] Date ECHOCARDIOGRAPHY- TRANSTHORAC W/ DOPPLER (Professional Comp.) 78494 Other persistent atrial fibrillation, Essential (primary) hypertension, Mixed hyperlipidemia, Rheumatic disorders of both mitral and tricuspid valves CALOS JONES MD [facility]- 08/25/2023 Last Documented On 4 1:23PM ; [facility] ELECTROCARDIAGRAM READING FEE (EKG) (DISTINCT PROCEDURAL SERVICE DIFFERENT SITE) [id number] Other persistent atrial fibrillation, Essential (primary) hypertension CALOS JONES MD [facility]- 08/25/2023 Last Documented On 4 1:23PM ; [facility] Medical History Includes: Medical History addressed during [...] Active Last Documented On 4 10:45AM ; [facility] Allergy 12/22/2015 Active Last Documented On 4 10:45AM ; [facility] Encounters Encounter Provider Location Date Check-In Time Check-Out Time Diagnosis ECHOCARDIOGRAM CALOS JONES MD [facility] 4 10:40AM 11:26AM Insurance Includes: Active Insurance Policies Plan Name Member ID Group # Subscriber Relationship Effect shannon Dates 1 - MEDICARE PART A CLAIMS/NGS [id number] MARIANNA Salas 2 - [facility] OPTIONS [id number] MARIANNA Salas Clinical Notes Includes: Clinical Notes from this encounter No Clinical Notes Recorded
--- OUTSIDE RECORDS SUMMARY | 2024-06-25 12:27 | XMS_ITS ---
Care Plan - [facility] Created on: June 25, 2024 DRAKE MARIANNA Rivero : 1945 Sex: Male Author Organization [facility] Address [address] [place] [address] Phone Care Team Providers Care Survey Supervisor Name Role Phone JIMMY PRICE, SAI Primary Care Provider [phone] JIMMY Andrews, GLENNA Macias Unavailable [phone]
--- OUTSIDE RECORDS SUMMARY | 2024-06-25 12:27 | XMS_ITS | Clinical Summary ---
Author Organization [facility] Address [address] [place] [address] Phone Care Team Providers Care Military Nurse Name Role Phone JIMMY PRICE, SAI Primary Care Provider [phone] JIMMY Andrews, GLENNA Macias Unavailable [phone] Reason for Visit and Chief Complaint CAROTID ULTRASOUND Problems Includes: Problems addressed during this encounter and other active Problems All Visits Onset Date Resolved Date Provider Condition S tatus Chronic Renal Failure 06/14/2022 MEGAN MARQUEZ M.D. Active Last Documented On 06/14/2022 11:26AM ; [facility] Note: Unchanged Constipation Drug-induced 02/18/2022 GLENNA MARQUEZ M.D. Active Last Documented On 02/18/2022 11:15AM ; [facility] Note: Unchanged Spinal Stenosis Lumbosacral 05/20/2021 GLENNA MARQUEZ M.D. Active Last Documented On 2 10:56AM ; [facility] Atrial Fibrillation 03/02/2021 GLENNA MARQUEZ M.D. Active Last Documented On 1 11:51AM ; [facility] Note: Unchanged Hyperlipidemia 08/04/2017 GLENNA MARQUEZ M.D. Active Last Documented On 8 10:00AM ; [facility] Note: Unchanged Esophageal Reflux 05/25/2012 GLENNA June Active Last Documented On 4 9:40AM ; [facility] Essential Hypertension 08/25/2010 GLENNA WHEELER M.D. Active Last Documented On 4 9:40AM ; [facility] Plan of Treatment No Plan of [...] 09/11/2023 10:36AM By SAI MARQUEZ MD ; [facility] Lisinopril 20 MG Oral Tablet 07/10/2023 Provider: GLENNA MARQUEZ M.D. Diagnosis: Essential (prima ry) hypertension TAKE 1 TABLET BY MOUTH TWICE DAILY Last Documented On 07/10/2023 3:00PM By SAI MARQUEZ MD ; [facility] Eliquis 5 MG Oral Tablet 07/10/2023 Provider: SAI MARQUEZ M.D. Diagnosis: Unspecified atri al fibrillation One tablet twice a day Last Documented On 07/10/2023 2:28PM By SAI MARQUEZ MD ; [facility] Naloxone HCl 4 MG/0.1ML Nasal Liquid 03/29/2023 Provider: GLENNA MARQUEZ M.D. Diagnosis: senior care (curre nt) use of opiate analgesic as directed 4 mg nasally as needed Last Documented On 03/29/2023 11:32AM By SAI MARQUEZ MD ; [facility] Pravastatin Sodium 20 MG Oral Tablet 03/29/2023 Provider: GLENNA MARQUEZ M.D. Diagnosis: Hyperlipidemia, unspecified TAKE 1 TABLET BY MOUTH DAILY Last Documented On 03/29/2023 1:37PM By SAI MARQUEZ MD ; [facility] Suspended Medications MiraLax 17 GM/SCOOP Oral Powder 02/22/2023 Provider: GLENNA MARQUEZ M.D. Diagnosis: as directed 1 to scops q day Last Documented On 02/22/2023 8:51AM By GUERDA Beavers LPN ; [facility] Medications Administered Includes: Administered Medications [...] OF EXTRACRANIAL ARTERIES; COMP BRAXTON (Professional Comp.) 40742 Occlusion and stenosis of bilateral carotid arteries ANNAMARIA JONES MD [facility] 09/18/2023 Last Documented On 4 10:18AM ; [facility] Medical History Includes: Medical [...] Active Last Documented On 4 10:45AM ; [facility] Allergy 12/22/2015 Active Last Documented On 4 10:45AM ; [facility] Encounters Encounter Provider Location Date Check-In Time Check-Out Time Diagnosis CAROTID ULTRASOUND ANNAMARIA JONES MD [facility] 09/18/19 24 10:41AM 11:28AM Insurance Includes: Active Insurance Policies Plan Name Member ID Group # Subscriber Relationship Effect shannon Dates 1 - MEDICARE PART A CLAIMS/NGS [id number] MARIANNA Salas 2 - [facility] OPTIONS [id number] MARIANNA Salas Clinical Notes Includes: Clinical Notes from this encounter No Clinical Notes Recorded
--- OUTSIDE RECORDS SUMMARY | 2024-06-25 12:27 | XMS_ITS | Clinical Summary ---
Author Organization [facility] Address [address] [place] [address] Phone Care Team Providers Care Soda Column Operator Name Role Phone JIMMY PRICE, SAI Primary Care Provider [phone] JIMMY Andrews, GLENNA Macias Unavailable [phone] Reason for Visit and Chief Complaint visit [...] Active Last Documented On 06/14/2022 11:26AM ; [facility] Note: Unchanged Constipation Drug-induced 02/18/2022 GLENNA MARQUEZ M.D. Active Last Documented On 02/18/2022 11:15AM ; [facility] Note: Unchanged Spinal Stenosis Lumbosacral 05/20/2021 GLENNA MARQUEZ M.D. Active Last Documented On 2 10:56AM ; [facility] Atrial Fibrillation 03/02/2021 GLENNA MARQUEZ M.D. Active Last Documented On 1 11:51AM ; [facility] Note: Unchanged Hyperlipidemia 08/04/2017 GLENNA MARQUEZ M.D. Active Last Documented On 8 10:00AM ; [facility] Note: Unchanged Esophageal Reflux 05/25/2012 GLENNA June Active Last Documented On 4 9:40AM ; [facility] Hyperlipidemia 08/25/2010 GLENNA MARQUEZ M.D. Inactive Last Documented On 5 10:50AM ; [facility] Essential Hypertension 08/25/2010 GLENNA WHEELER M.D. Active Last Documented On 4 9:40AM ; [facility] Plan of Treatment - Monitor Blood Pressure at home - Last Documented On 05/30/2023 11:25AM ; [facility] - Return to the [...] - Last Documented On 05/30/2023 11:25AM ; [facility] - I10 - Essential [...] 05/30/2023 11:18AM By SAI MARQUEZ MD ; [facility] New / Renewed during this visit GLENNA MARQUEZ M.D. on 05/30/2023 Lisinopril 20 MG Oral Tablet Provider: GLENNA MARQUEZ M.D. 90 day supply: 180 tablet, 0 refills Diagnosis: Essential (primary) hypertension One tablet twice a day Pharmacy: [address] [id number] - Last Documented On 07/10/2023 2:02PM By SAI MARQUEZ MD ; [facility] Current Medications (continue as prescribed) HYDROcodone-Acetaminophen 7. 5-325 MG Oral Tablet 09/11/2023 Provider: GLENNA MARQUEZ M.D. Diagnosis: Spinal stenosis, lumbosacral region Take one four times a day as needed Last Documented On 09/11/2023 10:36AM By SAI MARQUEZ MD ; [facility] Lisinopril 20 MG Oral Tablet 07/10/2023 Provider: GLENNA MARQUEZ M.D. Diagnosis: Essential (prima ry) hypertension TAKE 1 TABLET BY MOUTH TWICE DAILY Last Documented On 07/10/2023 3:00PM By SAI MARQUEZ MD ; [facility] Eliquis 5 MG Oral Tablet 07/10/2023 Provider: SAI MARQUEZ M.D. Diagnosis: Unspecified atri al fibrillation One tablet twice a day Last Documented On 07/10/2023 2:28PM By SAI MARQUEZ MD ; [facility] Naloxone HCl 4 MG/0.1ML Nasal Liquid 03/29/2023 Provider: GLENNA MARQUEZ M.D. Diagnosis: assisted (curre nt) use of opiate analgesic as directed 4 mg nasally as needed Last Documented On 03/29/2023 11:32AM By SAI MARQUEZ MD ; [facility] Pravastatin Sodium 20 MG Oral Tablet 03/29/2023 Provider: GLENNA MARQUEZ M.D. Diagnosis: Hyperlipidemia, unspecified TAKE 1 TABLET BY MOUTH DAILY Last Documented On 03/29/2023 1:37PM By SAI MARQUEZ MD ; [facility] Suspended Medications MiraLax 17 GM/SCOOP Oral [...] Ordered by GLENNA Coronel on 05/11/2023 [address], [place], [address] Collected: 05/26/2023 Report ed: 05/26/2023 11:17 tel: [...] [facility]: Responsible Observer: (HRG) BMP [facility] [place] boratory Ordered by GLENNA Coronel on 05/11/2023 [address], [place], [address] Collected: 05/26/2023 Report ed: 05/26/2023 11:34 tel: [...] None Last Documented On 4 11:58AM ; [facility] Note: Responsible Observer: (APR) eGFR. 51 mL/min None Last Documented On 4 11:58AM ; [facility] Note: Responsible Observer: (APR) GLUCOSE 86 mg/dL (70 - 105) None Last Documented On 4 11:58AM ; [facility] Note: Responsible Observer: (APR) POTASSIUM 4.3 mmol/L (3.6 - 5.0) None Last Documented On 4 11:58AM ; [facility] Note: Responsible Observer: (APR) SODIUM 139 mmol/L (137 - 145) None Last Documented On 4 11:58AM ; [facility] Note: Responsible Observer: (APR) TCO2 24.0 mmol/L (22.0 - 30.0) None Last Documented On 4 11:58AM ; [facility] Note: Responsible Observer: (APR) [...] 12/09/2022 Last Documented On 4 11:01AM ; [facility] DME in home: 06/14/2022 Last Documented On 4 11:01AM ; [facility] DME in home: cane 06/14/2022 Last Documented On 4 11:01AM ; [facility] [PHQ-2] Patient Health Questionnaire 2 i tem total score: 17 (Scale: 0-6) 02/10/2021 Last Documented On 4 11:01AM ; [facility] Difficulty walking 02/10/2021 Last Documented On 4 11:01AM ; [facility] No consumption of alcohol 02/10/2021 Last Documented On 4 11:01AM ; [facility] Not using drugs 02/10/2021 Last Documented On 4 11:01AM ; [facility] Stopped smoking 40 years ago 12/23/2020 Last Documented On 4 11:01AM ; [facility] Current nonsmoker 07/10/2020 Last Documented On 4 11:01AM ; [facility] Former smoker Pt states he quit smoking over 50 yrs ago 07/10/2020 Last Documented On 4 11:01AM ; [facility] Feeling down, depressed, or hopeless in the last 2 weeks? 0 pt Not at all 07/01/2020 Last Documented On 4 11:01AM ; [facility] Lost interest or pleasure in doing thing s was 0 Not at all 07/01/2020 Last Documented On 4 11:01AM ; [facility] Not using alcohol 07/01/2020 Last Documented On 4 11:01AM ; [facility] Non-smoker 11/06/2019 Last Documented On 4 11:01AM ; [facility] No tobacco use prev hx of 50 pack years smoking at young age 0105/08/2019 Last Documented On 4 11:01AM ; [facility] Not using alcohol 11/03/2017 Last Documented On 4 11:01AM ; [facility] Smoking status : Former smoker 8 Last Documented On 4 11:01AM ; [facility] Lives alone 07/23/2012 Last Documented On 4 11:01AM ; [facility] Caffeine use 09/28/2011 Last Documented On 4 11:01AM ; [facility] Single 09/21/2011 Last Documented On 4 11:01AM ; [facility] Retired from work 07/07/2011 Last Documented On 4 11:01AM ; [facility] Abnormal diet TRY TO EAT HARDLY ANY RED MEAT. EAT FISH,VEGETABLES, ETC 08/25/2010 Last Documented On 4 11:01AM ; [facility] Exercise frequency BIKE RIDE 1/2 HR, WA LK 1/2 HR, WEIGHTS 1/2 HR 08/25/2010 Last Documented On 4 11:01AM ; [facility] Occupation [employer] 200608/25/2010 Last Documented On 4 11:01AM ; [facility] Procedures and Surgical History Includes: Procedures [...] 12/09/2022 Last Documented On 4 11:01AM ; [facility] Surgery prostate and bladder surgery 04/2022 Last Documented On 4 11:01AM ; [facility] Please list all illnesses/co nditions you have been diagnosed with: Cancer. Prostate and Bladder 02/10/2021 Last Documented On 4 11:01AM ; [facility] Back brace 02/10/2021 Last Documented On 4 11:01AM ; [facility] Currently wearing eyeglasses 02/10/2021 Last Documented On 4 11:01AM ; [facility] No Pain Pump 02/10/2021 Last Documented On 4 11:01AM ; [facility] No Spinal cord stimulator 02/10/2021 Last Documented On 4 11:01AM ; [facility] Please list all surgeries: Prostrate marilu e 2009. bladder. dec 2013 02/10/2021 Last Documented On 4 11:01AM ; [facility] Severe Pain 02/10/2021 Last Documented On 4 11:01AM ; [facility] Uses a cane for support 02/10/2021 Last Documented On 4 11:01AM ; [facility] No Contact with and (Suspected) exposure to COVID-19 07/01/2020 Last Documented On 4 11:01AM ; [facility] No fall 07/01/2020 Last Documented On 4 11:01AM ; [facility] Not using Opioids 07/01/2020 Last Documented On 4 11:01AM ; [facility] Denies a fear of falling. 05/08/2019 Last Documented On 4 11:01AM ; [facility] Has had no fall in the last 12 months. 0 05/08/2019 Last Documented On 4 11:01AM ; [facility] Medication compliance 07/23/2012 Last Documented On 4 11:01AM ; [facility] Taking medication 09/28/2011 Last Documented On 4 11:01AM ; [facility] Prostate Ca, SP Prostatectomy ~ Urology Dr Charlton 07/07/2011 Last Documented On 4 11:01AM ; [facility] History of essential hypertension 2011 Last Documented On 4 11:01AM ; [facility] History of hyperlipidemia 07/07/2011 Last Documented On 4 11:01AM ; [facility] History of hypertension 08/25/2010 Last Documented On 4 11:01AM ; [facility] Family History Includes: Family History addressed during this encounter Description Last Updated Family history of Cancer Breast Cancer 0 12/09/2022 Last Documented On 4 11:01AM ; [facility] Not using Opioids 12/09/2022 Last [...] Active Last Documented On 4 10:45AM ; [facility] Allergy 12/22/2015 Active Last Documented On 4 10:45AM ; [facility] Encounters Encounter Provider Location Date Check-In Time Check-Out Time Diagnosis CHECK UP GLENNA MARQUEZ M.D. [facility] 05/30/19 24 10:57AM 11:15AM Essential Hypertension, Esophageal Reflux,Hyperl ipidemia,Atri al Fibrillation, Spinal Stenosis Lumbosacral,C onstipation Drug-induced, Chronic Renal Failure Insurance Includes: Active Insurance Policies Plan Name Member ID Group # Subscriber Relationship Effect shannon Dates 1 - MEDICARE PART A CLAIMS/NGS [id number] [facility] [employer] [facility] 2 - [facility] OPTIONS [id number] [facility] [employer] [facility] Clinical Notes Includes: Clinical Notes from this encounter * Progress note Date Encounter Last Documented by 05/30/2023 CHECK UP Last documented on 05/30/2023; 11:25 AM, GLENNA MARQUEZ M.D.; [facility] Active Problems & Conditions [...] Work: Retired from work and occupation [employer]-RET[employer] 2006. Marital: Single. Functional: Feeling down, depressed, [...]
--- OUTSIDE RECORDS SUMMARY | 2024-06-25 12:28 | XMS_ITS | Clinical Summary ---
Author Organization [facility] Address [address] [place] [address] Phone Care Team Providers Care Life Skills Specialist Name Role Phone JIMMY PRICE, SAI Primary Care Provider [phone] JIMMY Andrews, GLENNA Macias Unavailable [phone] Reason for Visit and Chief Complaint [facility] CHECK UP Problems Includes: Problems addressed during this encounter and other active Problems All Visits Onset Date Resolved Date Provider Condition S tatus Chronic Renal Failure 06/14/2022 MEGAN MARQUEZ M.D. Active Last Documented On 06/14/2022 11:26AM ; [facility] Note: Unchanged Constipation Drug-induced 02/18/2022 GLENNA MARQUEZ M.D. Active Last Documented On 02/18/2022 11:15AM ; [facility] Note: Unchanged Spinal Stenosis Lumbosacral 05/20/2021 GLENNA MARQUEZ M.D. Active Last Documented On 2 10:56AM ; [facility] Atrial Fibrillation 03/02/2021 GLENNA MARQUEZ M.D. Active Last Documented On 1 11:51AM ; [facility] Note: Unchanged Hyperlipidemia 08/04/2017 GLENNA MARQUEZ M.D. Active Last Documented On 8 10:00AM ; [facility] Note: Unchanged Esophageal Reflux 05/25/2012 GLENNA June Active Last Documented On 4 9:40AM ; [facility] Essential Hypertension 08/25/2010 GLENNA WHEELER M.D. Active Last Documented On 4 9:40AM ; [facility] Plan of Treatment No Plan of [...] 10:36AM By SAI MARQUEZ MD ; [facility] Lisinopril 20 MG Oral Tablet 07/10/2023 Provider: GLENNA MARQUEZ M.D. Diagnosis: Essential (prima ry) hypertension TAKE 1 TABLET BY MOUTH TWICE DAILY Last Documented On 07/10/2023 3:00PM By SAI MARQUEZ MD ; [facility] Eliquis 5 MG Oral Tablet 07/10/2023 Provider: SAI MARQUEZ M.D. Diagnosis: Unspecified atri al fibrillation One tablet twice a day Last Documented On 07/10/2023 2:28PM By SAI MARQUEZ MD ; [facility] Naloxone HCl 4 MG/0.1ML Nasal Liquid 03/29/2023 Provider: GLENNA MARQUEZ M.D. Diagnosis: [facility] (curre nt) use of opiate analgesic as directed 4 mg nasally as needed Last Documented On 03/29/2023 11:32AM By SAI MARQUEZ MD ; [facility] Pravastatin Sodium 20 MG Oral Tablet 03/29/2023 Provider: GLENNA MARQUEZ M.D. Diagnosis: Hyperlipidemia, unspecified TAKE 1 TABLET BY MOUTH DAILY Last Documented On 03/29/2023 1:37PM By SAI MARQUEZ MD ; [facility] Suspended Medications MiraLax 17 GM/SCOOP Oral Powder 02/22/2023 Provider: GLENNA MARQUEZ M.D. Diagnosis: as directed 1 to scops q day Last Documented On 02/22/2023 8:51AM By GUERDA Beavers LPN ; [facility] Medications Administered Includes: Administered [...] Last Documented On 4 10:45AM ; [facility] Allergy 12/22/2015 Active Last Documented On 4 10:45AM ; [facility] Encounters Encounter Provider Location Date Check-In Time Check- Out Time Diagnosis [facility] CHECK UP CALOS JONES MD [facility] 4 11:30AM 11:53AM Insurance Includes: Active Insurance Policies Plan Name Member ID Group # Subscriber Relationship Effect shannon Dates 1 - MEDICARE PART A CLAIMS/NGS [id number] MARIANNA Salas 2 - [facility] OPTIONS [id number] MARIANNA Salas Clinical Notes Includes: Clinical Notes from this encounter No Clinical Notes Recorded
--- OUTSIDE RECORDS SUMMARY | 2024-06-25 12:28 | XMS_ITS | Clinical Summary ---
Author Organization 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 Note: Unchanged Constipation Drug-induced 02/18/2022 GLENNA MARQUEZ M.D. Active Last Documented On 02/18/2022 11:15AM ; [facility] Note: Unchanged Spinal Stenosis Lumbosacral 05/20/2021 GLENNA MARQUEZ M.D. Active Last Documented On 2 10:56AM ; [facility] Atrial Fibrillation 03/02/2021 GLENNA MARQUEZ M.D. Active Last Documented On 1 11:51AM ; [facility] Note: Unchanged Hyperlipidemia 08/04/2017 GLENNA MARQUEZ M.D. Active Last Documented On 8 10:00AM ; [facility] Note: Unchanged Esophageal Reflux 05/25/2012 GLENNA June Active Last Documented On 4 9:40AM ; [facility] Hyperlipidemia 08/25/2010 GLENNA MAQRUEZ M.D. Inactive Last Documented On 5 10:50AM ; [facility] Essential Hypertension 08/25/2010 GLENNA Vieira.DJun Active Last Documented On 4 9:40AM ; [facility] Plan of Treatment - Return to the clinic if condition worsens or new symptoms arise - Last Documented On 08/28/2023 11:24AM ; [facility] - Continue current medication - Last Documented On 08/28/2023 11:24AM ; [facility] - Patient to call if problem develops - Last Documented On 08/28/2023 11:24AM ; [facility] Education and Decision Aids were provided during visit for: Education and counseling Adv ice to have regular exercise regimen Last Documented On 11:19AM ; [facility] Assessments Includes: Assessments from this encounter Findings - I48.91 - Unspecified atrial fibrillation - Last Documented On 08/28/2023 11:24AM ; [facility] - I10 - Essential (primary) hypertension - Last Documented On 08/28/2023 11:24AM ; [facility] - K21.9 - Gastro-esophageal reflux disease without esophagitis - Last Documented On 08/28/2023 11:24AM ; [facility] - K59.03 - Drug induced constipation - Last Documented On 08/28/2023 11:24AM ; [facility] - N18.9 - Chronic kidney disease, unspecified - Last Documented On 08/28/2023 11:24AM ; [facility] - E78.5 - Hyperlipidemia, unspecified - Last Documented On 08/28/2023 11:24AM ; [facility] - M48.07 - Spinal stenosis, lumbosacral region - Last Documented On 08/28/2023 11:24AM ; [facility] Instructions Includes: Instructions from this encounter Education and Decision Aids were provided during visit for: Education and counseling Adv ice to have regular exercise regimen Last Documented On 11:19AM ; [facility] Medical Equipment - Implanted Devices Includes: Current Devices No Medical Equipment Recorded Medications Includes: Medications discussed during this encounter and other current Medications Discontinued / Stopped on this date GLENNA MARQUEZ M.D. on 12/20/2022 Lisinopril 10 MG Oral Tablet Provider: GLENNA MARQUEZ M.D. Diagnosis: Essential (prima ry) hypertension Last Documented On 08/28/2023 11:06AM By SAI MARQUEZ MD ; [facility] Current Medications (continue as prescribed) HYDROcodone-Acetaminophen 7. 5-325 MG Oral Tablet 09/11/2023 Provider: GLENNA MARQUEZ M.D. Diagnosis: Spinal stenosis, lumbosacral region Take one four times a day as needed Last Documented On 09/11/2023 10:36AM By SAI MARQUEZ MD ; [facility] Lisinopril 20 MG Oral Tablet 07/10/2023 Provider: GLENNA MARQUEZ M.D. Diagnosis: Essential (prima ry) hypertension TAKE 1 TABLET BY MOUTH TWICE DAILY Last Documented On 07/10/2023 3:00PM By SAI MARQUEZ MD ; [facility] Eliquis 5 MG Oral Tablet 07/10/2023 Provider: SAI MARQUEZ M.D. Diagnosis: Unspecified atri al fibrillation One tablet twice a day Last Documented On 07/10/2023 2:28PM By SAI MARQUEZ MD ; [facility] Naloxone HCl 4 MG/0.1ML Nasal Liquid 03/29/2023 Provider: GLENNA MARQUEZ M.D. Diagnosis: prison (curre nt) use of opiate analgesic as directed 4 mg nasally as needed Last Documented On 03/29/2023 11:32AM By SAI MARQUEZ MD ; [facility] Pravastatin Sodium 20 MG Oral Tablet 03/29/2023 Provider: GLENNA MARQUEZ M.D. Diagnosis: Hyperlipidemia, unspecified TAKE 1 TABLET BY MOUTH DAILY Last Documented On 03/29/2023 1:37PM By SAI MARQUEZ MD ; [facility] Suspended Medications MiraLax 17 GM/SCOOP Oral Powder 02/22/2023 Provider: GLENNA MARQUEZ M.D. Diagnosis: as directed 1 to scops q day Last Documented On 02/22/2023 8:51AM By GUERDA Beavers LPN ; [facility] Medications Administered Includes: Administered [...] Last Documented: On 08/28/2023 10:50A M ; [facility] Results Includes: Results discussed [...] 12/09/2022 Last Documented On 4 10:45AM ; [facility] DME in home: 06/14/2022 Last Documented On 4 10:45AM ; [facility] DME in home: cane 06/14/2022 Last Documented On 4 10:45AM ; [facility] [PHQ-2] Patient Health Questionnaire 2 i tem total score: 17 (Scale: 0-6) 02/10/2021 Last Documented On 4 10:45AM ; [facility] Difficulty walking 02/10/2021 Last Documented On 4 10:45AM ; [facility] No consumption of alcohol 02/10/2021 Last Documented On 4 10:45AM ; [facility] Not using drugs 02/10/2021 Last Documented On 4 10:45AM ; [facility] Stopped smoking 40 years ago 12/23/2020 Last Documented On 4 10:45AM ; [facility] Current nonsmoker 07/10/2020 Last Documented On 4 10:45AM ; [facility] Former smoker Pt states he quit smoking over 50 yrs ago 07/10/2020 Last Documented On 4 10:45AM ; [facility] Feeling down, depressed, or hopeless in the last 2 weeks? 0 pt Not at all 07/01/2020 Last Documented On 4 10:45AM ; [facility] Lost interest or pleasure in doing thing s was 0 Not at all 07/01/2020 Last Documented On 4 10:45AM ; [facility] Not using alcohol 07/01/2020 Last Documented On 4 10:45AM ; [facility] Non-smoker 11/06/2019 Last Documented On 4 10:45AM ; [facility] No tobacco use prev hx of 50 pack years smoking at young age 0105/08/2019 Last Documented On 4 10:45AM ; [facility] Not using alcohol 11/03/2017 Last Documented On 4 10:45AM ; [facility] Smoking status : Former smoker 8 Last Documented On 4 10:45AM ; [facility] Lives alone 07/23/2012 Last Documented On 4 10:45AM ; [facility] Caffeine use 09/28/2011 Last Documented On 4 10:45AM ; [facility] Single 09/21/2011 Last Documented On 4 10:45AM ; [facility] Retired from work 07/07/2011 Last Documented On 4 10:45AM ; [facility] Abnormal diet TRY TO EAT HARDLY ANY RED MEAT. EAT FISH,VEGETABLES, ETC 08/25/2010 Last Documented On 4 10:45AM ; [facility] Exercise frequency BIKE RIDE 1/2 HR, WAL K 1/2 HR, WEIGHTS 1/2 HR 08/25/2010 Last Documented On 4 10:45AM ; [facility] Occupation [employer]RETIRED 200608/25/2010 Last Documented On 4 10:45AM ; [facility] Procedures and Surgical History Includes: Procedures from this encounter Procedures Code Diagnosis Performing Provider Service L ocation Service Date use of tobacco assessment performed 1000F Last Documented On 4 10:50AM ; [facility] review of medications documented 1160F Last Documented On 4 10:50AM ; [facility] Surgical History Last Updated No Pacemaker 02/10/2021 Last Documented On 4 10:45AM ; [facility] History of prostate surgery 09/2009 Last Documented On 4 10:45AM ; [facility] Medical History Includes: Medical History addressed during this encounter Description Last Updated Vaccine history 05/30/2023 Last Documented On 4 10:45AM ; [facility] No diagnosis of history of chronic obstr uctive pulmonary disease 12/09/2022 Last Documented On 4 10:45AM ; [facility] No diagnosis of history of diabetes fozia itus 12/09/2022 Last Documented On 4 10:45AM ; [facility] No history of Congestive Heart Failure 0 12/09/2022 Last Documented On 4 10:45AM ; [facility] Surgery prostate and bladder surgery 04/2022 Last Documented On 4 10:45AM ; [facility] Please list all illnesses/co nditions you have been diagnosed with: Cancer. Prostate and Bladder 02/10/2021 Last Documented On 4 10:45AM ; [facility] Back brace 02/10/2021 Last Documented On 4 10:45AM ; [facility] Currently wearing eyeglasses 02/10/2021 Last Documented On 4 10:45AM ; [facility] No Pain Pump 02/10/2021 Last Documented On 4 10:45AM ; [facility] No Spinal cord stimulator 02/10/2021 Last Documented On 4 10:45AM ; [facility] Please list all surgeries: Prostrate marilu e 2009. bladder. sept 201302/10/2021 Last Documented On 4 10:45AM ; [facility] Severe Pain 02/10/2021 Last Documented On 4 10:45AM ; [facility] Uses a cane for support 02/10/2021 Last Documented On 4 10:45AM ; [facility] No Contact with and (Suspected) exposure to COVID-19 07/01/2020 Last Documented On 4 10:45AM ; [facility] No fall 07/01/2020 Last Documented On 4 10:45AM ; [facility] Not using Opioids 07/01/2020 Last Documented On 4 10:45AM ; [facility] Denies a fear of falling. 05/08/2019 Last Documented On 4 10:45AM ; [facility] Has had no fall in the last 12 months. 0 05/08/2019 Last Documented On 4 10:45AM ; [facility] Medication compliance 07/23/2012 Last Documented On 4 10:45AM ; [facility] Taking medication 09/28/2011 Last Documented On 4 10:45AM ; [facility] Prostate Ca, SP Prostatectomy ~ Urology Dr [place]ton 07/07/2011 Last Documented On 4 10:45AM ; [facility] History of essential hypertension 2011 Last Documented On 4 10:45AM ; [facility] History of hyperlipidemia 07/07/2011 Last Documented On 4 10:45AM ; [facility] History of hypertension 08/25/2010 Last Documented On 4 10:45AM ; [facility] Family History Includes: Family History addressed during this encounter Description Last Updated Family history of Cancer Breast Cancer 0 12/09/2022 Last Documented On 4 10:45AM ; [facility] Not using Opioids 12/09/2022 Last Documented On 4 10:45AM ; [facility] Fraternal history of family history of i schemic heart disease 02/10/2021 Last Documented On 4 10:45AM ; [facility] Fraternal history of coronary artery dis ease 08/04/2017 Last Documented On 4 10:45AM ; [facility] Family history reviewed - unchanged [facility] e last visit 11/06/2015 Last Documented On 4 10:45AM ; [facility] Fraternal history of cancer 04/29/2015 Last Documented On 4 10:45AM ; [facility] Fraternal history of heart disease 04/29 Last Documented On 4 10:45AM ; [facility] Maternal history of cancer 04/29/2015 Last Documented On 4 10:45AM ; [facility] Family history of cancer 07/07/2011 Last Documented On 4 10:45AM ; [facility] Family history of coronary artery diseas e 07/07/2011 Last Documented On 4 10:45AM ; [facility] Brother 69 years old [facility] [place] 8 YEARS AGO 08/25/2010 Last Documented On 4 10:45AM ; [facility] Father 1985 AT AGE 74- PUMA GEHRIG'S TYPE DISEASE 08/25/2010 Last Documented On 4 10:45AM ; [facility] Heart disease 08/25/2010 Last Documented On 4 10:45AM ; [facility] Mother 1995 AT AGE 72- BREAST CANCER 08/25/2010 Last Documented On 4 10:45AM ; [facility] Review of Systems Includes: Review [...] Active Last Documented On 4 10:45AM ; [facility] Allergy 12/22/2015 Active Last Documented On 4 10:45AM ; [facility] Encounters Encounter Provider Location Date Check-In Time Check-Out Time Diagnosis CHECK UP GLENNA [facility]QUEZ M.D. [facility] 10:42AM 11:19AM Essential Hypertension, Esophageal Reflux,Hyperl ipidemia,Atri al Fibrillation, Spinal Stenosis Lumbosacral,C onstipation Drug-induced, Chronic Renal Failure Insurance Includes: Active Insurance Policies Plan Name Member ID Group # Subscriber Relationship Effect shannon Dates 1 - MEDICARE PART A CLAIMS/NGS [id number] MARIANNA JUAN Self 2 - [facility] OPTIONS [id number] MARIANNA JUAN Self Clinical Notes Includes: Clinical Notes from this encounter * Progress note Date Encounter Last Documented by 08/28/2023 CHECK UP Last documented on 08/28/2023; 11:24 AM, GLENNA MARQUEZ M.D.; [facility] Active Problems & Conditions - I48.91 [...]
[2024-06-25 17:41] LABS: Hemoglobin A1C 5.5 % (<5.7)
== END 2024-06-25 10:54 | disposition home or self-care (01) ==
PROVIDERS: PCP Family Medicine; Visit Provider Family Medicine
DX: R73.01 Impaired fasting glucose (principal); N17.9 Acute kidney failure, unspecified; E87.8 Other disorders of electrolyte and fluid balance, not elsewhere classified; I10 Essential (primary) hypertension
CPT/HCPCS: 36415; 80053; 83036; 85025

== ENCOUNTER 2024-06-26 05:49 | Emergency (ER) | payer MEDICARE, SELFPAY ==
--- NOTE | ~2024-06-26 | CT_ITS ---
CT head without contrast Indication: Headache Technique: Serial scans were obtained through the brain without the administration of contrast. Dose reduction technique was used on this scan by utilizing automated exposure control and iterative recon struction technique. The dose-length product (DLP) was 681.00 mGy-cm. Findings: There is no evidence of intracranial hemorrhage, mass lesion, or acute infarct. Chronic rig ht frontal lobe infarct present. The ventricles and subarachnoid spaces are dilated, consistent with mild atrophy. Low attenuation regions are seen within the periventricular white matter bilaterally, likely representing changes from chronic microvascular ischemic disease. There is no evidence of ivone a, mass effect or midline shift. The visualized paranasal sinuses and mastoid air cells are clear. Impression: No intracranial hemorrhage, mass, or acute infarct. Chronic right frontal lobe infarct. Atrophy and chronic white matter changes, as above. Reviewed, dictated and finalized at [facility]. Impression: No intracranial hemorrhage, mass, or acute infarct. Chronic right frontal lobe infarct. Atrophy and chronic white matter changes, as above.
--- NOTE | ~2024-06-26 | CT_ITS ---
Noncontrast CT scan of the cervical spine Technique: Multiple contiguous axial [address] images of the cervical spine were obtained and rec onstructed in 2D sagittal and coronal planes on the acquisition scanner. Dose reduction technique was used on this scan by utilizing automated exposure control, adjustment of the mA and/or kV according to patient size. The dose-length product (DLP) was 438.47 mGy-cm. Clinical History: Pain Findings: No fractures or dislocations. There is straightening of normal cervical lordosis. There is severe degenerative disc narrowing at C5-C6 and C6-C7. There is moderate degenerative disc narrowing at C4-C5. There is mild degenerative disc narrowing at C2-C3 and C3-C4. There is bilateral facet arthropathy at C2-C3, left worse than right, possible minimal left neural fo raminal narrowing. No canal stenosis or cord compression evident. There is bilateral facet arthropathy, right worse than left, with bilateral neural foraminal narrowin g, right worse than left, at C3-C4. No canal stenosis evident. At C4-C5, there is bilateral facet arthropathy, right worse than left, with severe bilateral neural f oraminal narrowing, right worse than left. No definite canal stenosis. At C5-C6, there is disc osteophyte composition is bilateral facet arthropathy. There is severe bilate ral neural foraminal narrowing. Possible minimal canal stenosis. At C6-C7, there is disc osteophyte complex with severe bilateral neural foraminal narrowing, right wo rse than left. Possible minimal canal stenosis. No prevertebral soft tissue swelling. Impression: No fracture or subluxation of the cervical spine. Advanced spondylosis, as detailed above. Reviewed, dictated and finalized at [facility]. Impression: No fracture or subluxation of the cervical spine. Advanced spondylosis, as detailed above.
--- NOTE | ~2024-06-26 | CT_ITS ---
Noncontrast CT scan of the thoracic spine CLINICAL HISTORY: Back pain, status post fall TECHNIQUE: Axial noncontrast imaging of the thoracic spine was performed. Sagittal and coronal reform atted images were constructed. Dose reduction technique was used on this scan by utilizing automated exposure control and iterative reconstruction technique. The dose-length product (DLP) was 1431.04 mG y-cm. FINDINGS: There is no acute fracture or subluxation of the thoracic spine. There is mild to moderate degenerative disc narrowing throughout the mid to lower thoracic spine. 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 There is prominent facet arthropathy at T11-T12 with probable moderate canal stenosis at this level. No other definite canal stenosis seen in the remainder of the thoracic spine. Probable bilateral neur al foraminal narrowing at T9-T10 and T10-T11. Paravertebral soft tissues are unremarkable. Impression: No acute fracture or dislocation. Probable moderate canal stenosis at T11-T12 related to facet arthropathy. Probable bilateral neural foraminal narrowing at T9-T10 and T10-T11. Reviewed, dictated and finalized at [facility]. Impression: No acute fracture or dislocation. Probable moderate canal stenosis at T11-T12 related to facet arthropathy. Probable bilateral neural foraminal narrowing at T9-T10 and T10-T11.
--- NOTE | ~2024-06-26 | CT_ITS ---
Non-contrast CT scan of the Pelvis Clinical indication: Pain, status post fall Technique: 2.5 mm axial scans were obtained through the pelvis without intravenous or oral contrast. Dose reduction technique was used on this scan by utilizing automated exposure control and iterative reconstruction technique. The dose-length product (DLP) was 370.47 mGy-cm. Findings: No bowel obstruction. There is prominent stool at the rectum, compatible with fecal impacti on/constipation. No pelvic lymphadenopathy or soft tissue mass seen. Urinary bladder unremarkable. No ascites. Proximal femora and pelvic bones are intact, without evidence of fracture or dislocation. There is mo derate degenerative change of both SI joints. There is moderate degenerative change of the right hip joint, and mild degenerative change of the left hip joint. No soft tissue mass seen peripherally abou t the pelvis or hips. Visualized musculature grossly unremarkable for noncontrast CT scan.. Impression: No acute posttraumatic abnormality seen. No fracture or dislocation. Fecal impaction/constipation. Degenerative change of the hips and SI joints, as above. Reviewed, dictated and finalized at location . Impression: No acute posttraumatic abnormality seen. No fracture or dislocation. Fecal impaction/constipation. Degenerative change of the hips and SI joints, as above.
--- NOTE | ~2024-06-26 | CT_ITS ---
Noncontrast CT scan of the lumbar spine CLINICAL HISTORY: Back pain, status post fall TECHNIQUE: Axial noncontrast imaging of the lumbar spine was performed. Sagittal and coronal reformat meenu images were constructed. Dose reduction technique was used on this scan by utilizing automated ex posure control and iterative reconstruction technique. The dose-length product (DLP) was 853.45 mGy-c m. FINDINGS: There is no acute fracture or subluxation lumbar spine. At L1-L2, there is moderate to advanced degenerative disc narrowing with moderate to advanced facet a rthropathy. There is minimal central canal stenosis. There is moderate to advanced bilateral neural f oraminal narrowing. At L2-L3, there is moderate degenerative disc narrowing. There is minimal disc bulge with moderate fa cet arthropathy. Probable mild central canal stenosis. There is moderate to severe bilateral neural f oraminal narrowing. At L3-L4, there is severe degenerative disc narrowing with severe facet arthropathy. There is moderat e to severe spinal canal stenosis. There is severe bilateral neural foraminal compromise, left worse than right. At L4-L5, there is severe degenerative disc narrowing. There is severe facet arthropathy with severe spinal canal stenosis/thecal sac compression. There is severe bilateral neural foraminal caliber othe rwise. At L5-S1, there is moderate degenerative disc narrowing with mild facet arthropathy. No definite sal l stenosis. There is moderate bilateral neural foraminal narrowing. Paravertebral soft tissues are unremarkable. Impression: No fracture or subluxation. Severe degenerative spondylosis throughout the lumbar spine, as detailed above. Reviewed, dictated and finalized at [facility]. Impression: No fracture or subluxation. Severe degenerative spondylosis throughout the lumbar spine, as detailed above.
[2024-06-26 05:49] VITALS: BP 132/87; PULSE 87; RESP 16; TEMP 36.4; O2SAT 96
--- OUTSIDE RECORDS SUMMARY | 2024-06-26 05:51 | XMS_ITS | Clinical Summary ---
Author Organization [facility] Address [address] [place] [address] Phone Care Team Providers Care Ranch Supervisor Name Role Phone JIMMY PRICE, SAI Primary Care Provider [phone] JIMMY Andrews, GLENNA Macias Unavailable [phone] Reason for Visit and Chief Complaint visit [...] Active Last Documented On 06/14/2022 11:26AM ; [facility] Note: Unchanged Constipation Drug-induced 02/18/2022 GLENNA MARQUEZ M.D. Active Last Documented On 02/18/2022 11:15AM ; [facility] Note: Unchanged Spinal Stenosis Lumbosacral 05/20/2021 GLENNA MARQUEZ M.D. Active Last Documented On 2 10:56AM ; [facility] Atrial Fibrillation 03/02/2021 GLENNA MARQUEZ M.D. Active Last Documented On 1 11:51AM ; [facility] Note: Unchanged Hyperlipidemia 08/04/2017 GLENNA MARQUEZ M.D. Active Last Documented On 8 10:00AM ; [facility] Note: Unchanged Esophageal Reflux 05/25/2012 GLENNA June Active Last Documented On 4 9:40AM ; [facility] Hyperlipidemia 08/25/2010 GLENNA MARQUEZ M.D. Inactive Last Documented On 5 10:50AM ; [facility] Essential Hypertension 08/25/2010 GLENNA WHEELER M.D. Active Last Documented On 4 9:40AM ; [facility] Plan of Treatment - Monitor Blood Pressure at home - Last Documented On 05/30/2023 11:25AM ; [facility] - Return to the clinic if condition worsens or new symptoms arise - Last Documented On 05/30/2023 11:25AM ; [facility] - Continue current medication - Last Documented On 05/30/2023 11:25AM ; [facility] - Modify drug dosage Lisinopril to 20 mg 2 x a day - Last Documented On 05/30/2023 11:25AM ; [facility] - Patient to call if problem develops - Last Documented On 05/30/2023 11:25AM ; [facility] Assessments Includes: Assessments from this encounter Findings - I48.91 - Unspecified atrial fibrillation - Last Documented On 05/30/2023 11:25AM ; [facility] - I10 - Essential (primary) hypertension - Last Documented On 05/30/2023 11:25AM ; [facility] - K21.9 - Gastro-esophageal reflux disease without esophagitis - Last Documented On 05/30/2023 11:25AM ; [facility] - K59.03 - Drug induced constipation - Last Documented On 05/30/2023 11:25AM ; [facility] - N18.9 - Chronic kidney disease, unspecified - Last Documented On 05/30/2023 11:25AM ; [facility] - E78.5 - Hyperlipidemia, unspecified - Last Documented On 05/30/2023 11:25AM ; [facility] - M48.07 - Spinal stenosis, lumbosacral region - Last Documented On 05/30/2023 11:25AM ; [facility] Medical Equipment - Implanted Devices Includes: Current Devices No Medical Equipment Recorded Medications Includes: Medications discussed during this encounter and other current Medications Discontinued / Stopped on this date GLENNA MARQUEZ M.D. on 11/17/2022 Movantik 25 MG Oral Tablet Provider: Atul MARQUEZ M.D. Diagnosis: Drug induced con stipation Last Documented On 05/30/2023 11:18AM By SAI MARQUEZ MD ; [facility] New / Renewed during this visit GLENNA MARQUEZ M.D. on 05/30/2023 Lisinopril 20 MG Oral Tablet Provider: GLENNA MARQUEZ M.D. 90 day supply: 180 tablet, 0 refills Diagnosis: Essential (primary) hypertension One tablet twice a day Pharmacy: [address] [id number] - Last Documented On 07/10/2023 2:02PM By SAI MARQUEZ MD ; [facility] Current Medications (continue as prescribed) HYDROcodone-Acetaminophen 7. 5-325 MG Oral Tablet 09/11/2023 Provider: GLENNA MARQUEZ M.D. Diagnosis: Spinal stenosis, lumbosacral region Take one four times a day as needed Last Documented On 09/11/2023 10:36AM By SAI MARQUEZ MD ; [facility] Lisinopril 20 MG Oral Tablet 07/10/2023 Provider: GLENNA MARQUEZ M.D. Diagnosis: Essential (prima ry) hypertension TAKE 1 TABLET BY MOUTH TWICE DAILY Last Documented On 07/10/2023 3:00PM By SAI MARQUEZ MD ; [facility] Eliquis 5 MG Oral Tablet 07/10/2023 Provider: SAI MARQUEZ M.D. Diagnosis: Unspecified atri al fibrillation One tablet twice a day Last Documented On 07/10/2023 2:28PM By SAI MARQUEZ MD ; [facility] Naloxone HCl 4 MG/0.1ML Nasal Liquid 03/29/2023 Provider: GLENNA MARQUEZ M.D. Diagnosis: USP (curre nt) use of opiate analgesic as directed 4 mg nasally as needed Last Documented On 03/29/2023 11:32AM By SAI MARQUEZ MD ; [facility] Pravastatin Sodium 20 MG Oral Tablet 03/29/2023 Provider: GLENNA MARQUEZ M.D. Diagnosis: Hyperlipidemia, unspecified TAKE 1 TABLET BY MOUTH DAILY Last Documented On 03/29/2023 1:37PM By SAI MARQUEZ MD ; [facility] Suspended Medications MiraLax 17 GM/SCOOP Oral Powder 02/22/2023 Provider: GLENNA MARQUEZ M.D. Diagnosis: as directed 1 to scops q day Last Documented On 02/22/2023 8:51AM By GUERDA Beavers LPN ; [facility] Medications Administered Includes: Administered Medications from this [...] Last Documented: On 05/30/2023 11:05A M ; [facility] Results Includes: Results discussed during this encounter CBC WITH DIFF [facility] La boratory Ordered by GLENNA Coronel on 05/11/2023 [address] [facility], [place], [address] Collected: 05/26/2023 Report ed: 05/26/2023 11:17 tel: Last Documented On 4 12:04PM ; [facility] Reviewed by GLENNA MARQUEZ M.D. on 05/26/2023; All test results are final unless otherwise noted. ALC 1.2 None Last Documented On 4 11:58AM ; [facility] Note: Responsible Observer: (HRG) ANC 4.3 None Last Documented On 4 11:58AM ; [facility] Note: Responsible Observer: (HRG) BASO# 0.02 th/uL (0.00 - 0.20) None Last Documented On 4 11:58AM ; [facility] Note: Responsible Observer: (HRG) BASO% 0.3 % (0.0 - 2.0) None Last Documented On 4 11:58AM ; [facility] Note: Responsible Observer: (HRG) CBC WITH DIFF See Note None Last Documented On 4 11:58AM ; [facility] Note: CBC (COMPLETE BLOOD COUNT)Responsi ble Observer: (HRG) DIFF (Y/N) NO None Last Documented On 4 11:58AM ; [facility] Note: Responsible Observer: (HRG) EOS# 0.23 th/uL (0.00 - 0.45) None Last Documented On 4 11:58AM ; [facility] Note: Responsible Observer: (HRG) EOS% 3.6 % (0.0 - 9.0) None Last Documented On 4 11:58AM ; [facility] Note: Responsible Observer: (HRG) HCT 38.6 % (40.0 - 54.0) L (Low) Last Documented On 4 11:58AM ; [facility] Note: Responsible Observer: (HRG) HGB 12.9 g/dL (13.5 - 17.5) L (Low) Last Documented On 4 11:58AM ; [facility] Note: Responsible Observer: (HRG) IG# 0.04 th/ul (0.00 - 0.10) None Last Documented On 4 11:58AM ; [facility] Note: Responsible Observer: (HRG) IG% 0.6 % (0.0 - 0.5) H (High) Last Documented On 4 11:58AM ; [facility] Note: Responsible Observer: (HRG) LYMPH# 1.19 th/uL (1.00 - 4.80) None Last Documented On 4 11:58AM ; [facility] Note: Responsible Observer: (HRG) LYMPH% 18.7 % (14.0 - 45.0) None Last Documented On 4 11:58AM ; [facility] Note: Responsible Observer: (HRG) MCH 32.9 pg (25.0 - 35.0) None Last Documented On 4 11:58AM ; [facility] Note: Responsible Observer: (HRG) MCHC 33.4 g/dL (31.0 - 36.0) None Last Documented On 4 11:58AM ; [facility] Note: Responsible Observer: (HRG) MCV 98.5 fl (80.0 - 100) None Last Documented On 4 11:58AM ; [facility] Note: Responsible Observer: (HRG) MONO# 0.64 th/uL (0.00 - 0.80) None Last Documented On 4 11:58AM ; [facility] Note: Responsible Observer: (HRG) MONO% 10.1 % (1.0 - 10.0) H (High) Last Documented On 4 11:58AM ; [facility] Note: Responsible Observer: (HRG) MPV 12.7 fl (6.0 - 11.0) H (High) Last Documented On 4 11:58AM ; [facility] Note: Responsible Observer: (HRG) NEUT# 4.24 th/uL None Last Documented On 4 11:58AM ; [facility] Note: Responsible Observer: (HRG) NEUT% 66.7 % (45.0 - 76.0) None Last Documented On 4 11:58AM ; [facility] Note: Responsible Observer: (HRG) NRBC% 0.0 % (0.0 - 0.0) None Last Documented On 4 11:58AM ; [facility] Note: Responsible Observer: (HRG) PLT 141 th/uL (150 - 400) L (Low) Last Documented On 4 11:58AM ; [facility] Note: Responsible Observer: (HRG) RBC 3.92 mil/uL (4.50 - 5.90) L (Low) Last Documented On 4 11:58AM ; [facility] Note: Responsible Observer: (HRG) RDW 11.7 % (11.0 - 16.0) None Last Documented On 4 11:58AM ; [facility] Note: Responsible Observer: (HRG) WBC 6.4 th/uL (4.5 - 11.0) None Last Documented On 4 11:58AM ; [facility] Note: Responsible Observer: (HRG) BMP [facility] La boratory Ordered by GLENNA Coronel on 05/11/2023 [address] [facility], [place], [address] Collected: 05/26/2023 Report ed: 05/26/2023 11:34 tel: Last Documented On 4 12:04PM ; [facility] Reviewed by GLENNA MARQUEZ M.D. on 05/26/2023; All test results are final unless otherwise noted. AGE 78 YEARS None Last Documented On 4 11:58AM ; [facility] Note: Responsible Observer: (APR) ANION GAP 14.3 mmol/L (8.0 - 16.0) None Last Documented On 4 11:58AM ; [facility] Note: eGFR INTERPRETATION AGE AVG GFR 2 [...] None Last Documented On 4 11:58AM ; [facility] Note: BASIC METABOLIC PANELResponsible O bserver: (APR) BUN 24 mg/dL (9 - 20) H (High) Last Documented On 4 11:58AM ; [facility] Note: Responsible Observer: (APR) CALCIUM 9.2 mg/dL (8.9 - 10.0) None Last Documented On 4 11:58AM ; [facility] Note: Responsible Observer: (APR) CHLORIDE 105 mmol/L (98 - 107) None Last Documented On 4 11:58AM ; [facility] Note: Responsible Observer: (APR) CREATININE 1.4 mg/dL (0.8 - 1.5) None Last Documented On 4 11:58AM ; [facility] Note: Responsible Observer: (APR) eGFR. 51 mL/min None Last Documented On 4 11:58AM ; [facility] Note: Responsible Observer: (APR) GLUCOSE 86 mg/dL (70 - 105) None Last Documented On 4 11:58AM ; [facility] Note: Responsible Observer: (APR) POTASSIUM 4.3 mmol/L (3.6 - 5.0) None Last Documented On 4 11:58AM ; [facility] Note: Responsible Observer: (APR) SODIUM 139 mmol/L (137 - 145) None Last Documented On 4 11:58AM ; [facility] Note: Responsible Observer: (APR) TCO2 24.0 mmol/L (22.0 - 30.0) None Last Documented On 4 11:58AM ; [facility] Note: Responsible Observer: (APR) [...] 12/09/2022 Last Documented On 4 11:01AM ; [facility] DME in home: 06/14/2022 Last Documented On 4 11:01AM ; [facility] DME in home: cane 06/14/2022 Last Documented On 4 11:01AM ; [facility] [PHQ-2] Patient Health Questionnaire 2 i tem total score: 17 (Scale: 0-6) 02/10/2021 Last Documented On 4 11:01AM ; [facility] Difficulty walking 02/10/2021 Last Documented On 4 11:01AM ; [facility] No consumption of alcohol 02/10/2021 Last Documented On 4 11:01AM ; [facility] Not using drugs 02/10/2021 Last Documented On 4 11:01AM ; [facility] Stopped smoking 40 years ago 12/23/2020 Last Documented On 4 11:01AM ; [facility] Current nonsmoker 07/10/2020 Last Documented On 4 11:01AM ; [facility] Former smoker Pt states he quit smoking over 50 yrs ago 07/10/2020 Last Documented On 4 11:01AM ; [facility] Feeling down, depressed, or hopeless in the last 2 weeks? 0 pt Not at all 07/01/2020 Last Documented On 4 11:01AM ; [facility] Lost interest or pleasure in doing thing s was 0 Not at all 07/01/2020 Last Documented On 4 11:01AM ; [facility] Not using alcohol 07/01/2020 Last Documented On 4 11:01AM ; [facility] Non-smoker 11/06/2019 Last Documented On 4 11:01AM ; [facility] No tobacco use prev hx of 50 pack years smoking at young age 0105/08/2019 Last Documented On 4 11:01AM ; [facility] Not using alcohol 11/03/2017 Last Documented On 4 11:01AM ; [facility] Smoking status : Former smoker 8 Last Documented On 4 11:01AM ; [facility] Lives alone 07/23/2012 Last Documented On 4 11:01AM ; [facility] Caffeine use 09/28/2011 Last Documented On 4 11:01AM ; [facility] Single 09/21/2011 Last Documented On 4 11:01AM ; [facility] Retired from work 07/07/2011 Last Documented On 4 11:01AM ; [facility] Abnormal diet TRY TO EAT HARDLY ANY RED MEAT. EAT FISH,VEGETABLES, ETC 08/25/2010 Last Documented On 4 11:01AM ; [facility] Exercise frequency BIKE RIDE 1/2 HR, WA LK 1/2 HR, WEIGHTS 1/2 HR 08/25/2010 Last Documented On 4 11:01AM ; [facility] Occupation [employer] 200608/25/2010 Last Documented On 4 11:01AM ; [facility] Procedures and Surgical History Includes: Procedures from this encounter Procedures Code Diagnosis Performing Provider Service L ocation Service Date use of tobacco assessment performed 1000F Last Documented On 4 11:06AM ; [facility] review of medications documented 1160F Last Documented On 4 11:06AM ; [facility] Surgical History Last Updated No Pacemaker 02/10/2021 Last Documented On 4 11:01AM ; [facility] History of prostate surgery 09/2009 Last Documented On 4 11:01AM ; [facility] Medical History Includes: Medical History addressed during this encounter Description Last Updated Vaccine history 05/30/2023 Last Documented On 4 11:25AM ; [facility] Diastolic blood pressure 85 mmHg 023 Last Documented On 4 11:01AM ; [facility] Systolic blood pressure 150 mmHg 023 Last Documented On 4 11:01AM ; [facility] No diagnosis of history of chronic obstr uctive pulmonary disease 12/09/2022 Last Documented On 4 11:01AM ; [facility] No diagnosis of history of diabetes fozia itus 12/09/2022 Last Documented On 4 11:01AM ; [facility] No history of Congestive Heart Failure 0 12/09/2022 Last Documented On 4 11:01AM ; [facility] Surgery prostate and bladder surgery 04/2022 Last Documented On 4 11:01AM ; [facility] Please list all illnesses/co nditions you have been diagnosed with: Cancer. Prostate and Bladder 02/10/2021 Last Documented On 4 11:01AM ; [facility] Back brace 02/10/2021 Last Documented On 4 11:01AM ; [facility] Currently wearing eyeglasses 02/10/2021 Last Documented On 4 11:01AM ; [facility] No Pain Pump 02/10/2021 Last Documented On 4 11:01AM ; [facility] No Spinal cord stimulator 02/10/2021 Last Documented On 4 11:01AM ; [facility] Please list all surgeries: Prostrate marilu e 2009. bladder. dec 2013 02/10/2021 Last Documented On 4 11:01AM ; [facility] Severe Pain 02/10/2021 Last Documented On 4 11:01AM ; [facility] Uses a cane for support 02/10/2021 Last Documented On 4 11:01AM ; [facility] No Contact with and (Suspected) exposure to COVID-19 07/01/2020 Last Documented On 4 11:01AM ; [facility] No fall 07/01/2020 Last Documented On 4 11:01AM ; [facility] Not using Opioids 07/01/2020 Last Documented On 4 11:01AM ; [facility] Denies a fear of falling. 05/08/2019 Last Documented On 4 11:01AM ; [facility] Has had no fall in the last 12 months. 0 05/08/2019 Last Documented On 4 11:01AM ; [facility] Medication compliance 07/23/2012 Last Documented On 4 11:01AM ; [facility] Taking medication 09/28/2011 Last Documented On 4 11:01AM ; [facility] Prostate Ca, SP Prostatectomy ~ Urology Dr Charlton 07/07/2011 Last Documented On 4 11:01AM ; [facility] History of essential hypertension 2011 Last Documented On 4 11:01AM ; [facility] History of hyperlipidemia 07/07/2011 Last Documented On 4 11:01AM ; [facility] History of hypertension 08/25/2010 Last Documented On 4 11:01AM ; [facility] Family History Includes: Family History addressed during this encounter Description Last Updated Family history of Cancer Breast Cancer 0 12/09/2022 Last Documented On 4 11:01AM ; [facility] Not using Opioids 12/09/2022 Last Documented On 4 11:01AM ; [facility] Fraternal history of family history of i schemic heart disease 02/10/2021 Last Documented On 4 11:01AM ; [facility] Fraternal history of coronary artery dis ease 08/04/2017 Last Documented On 4 11:01AM ; [facility] Family history reviewed - unchanged sin e last visit 11/06/2015 Last Documented On 4 11:01AM ; [facility] Fraternal history of cancer 04/29/2015 Last Documented On 4 11:01AM ; [facility] Fraternal history of heart disease 04/29 Last Documented On 4 11:01AM ; [facility] Maternal history of cancer 04/29/2015 Last Documented On 4 11:01AM ; [facility] Family history of cancer 07/07/2011 Last Documented On 4 11:01AM ; [facility] Family history of coronary artery diseas e 07/07/2011 Last Documented On 4 11:01AM ; [facility] Brother 69 years old [place] [place] 8 YEARS AGO 08/25/2010 Last Documented On 4 11:01AM ; [facility] Father 1985 AT AGE 74- PUMA GEHRIG'S TYPE DISEASE 08/25/2010 Last Documented On 4 11:01AM ; [facility] Heart disease 08/25/2010 Last Documented On 4 11:01AM ; [facility] Mother 1995 AT AGE 72- BREAST CANCER 08/25/2010 Last Documented On 4 11:01AM ; [facility] Review of Systems Includes: Review of [...] Active Last Documented On 4 10:45AM ; [facility] Allergy 12/22/2015 Active Last Documented On 4 10:45AM ; [facility] Encounters Encounter Provider Location Date Check-In Time Check-Out Time Diagnosis CHECK UP GLENNA MARQUEZ M.D. [facility] 05/30/19 24 10:57AM 11:15AM Essential Hypertension, Esophageal Reflux,Hyperl ipidemia,Atri al Fibrillation, Spinal Stenosis Lumbosacral,C onstipation Drug-induced, Chronic Renal Failure Insurance Includes: Active Insurance Policies Plan Name Member ID Group # Subscriber Relationship Effect shannon Dates 1 - MEDICARE PART A CLAIMS/NGS [id number] [facility] [employer] [facility] 2 - [facility] OPTIONS [id number] [facility] [employer] [facility] Clinical Notes Includes: Clinical Notes from this encounter * Progress note Date Encounter Last Documented by 05/30/2023 CHECK UP Last documented on 05/30/2023; 11:25 AM, GLENNA MARQUEZ M.D.; [facility] Active Problems & Conditions [...] Work: Retired from work and occupation [employer] 2006. Marital: Single. Functional: Feeling down, depressed, [...]
--- OUTSIDE RECORDS SUMMARY | 2024-06-26 05:52 | XMS_ITS | Clinical Summary ---
Author Organization [facility] Address [address] [place] [address] Phone Care Team Providers Care Gill Tender Name Role Phone JIMMY PRICE, SAI Primary Care Provider [phone] JIMMY Andrews, GLENNA Macias Unavailable [phone] Reason for Visit and Chief Complaint visit [...] Active Last Documented On 06/14/2022 11:26AM ; [facility] Note: Unchanged Constipation Drug-induced 02/18/2022 GLENNA MARQUEZ M.D. Active Last Documented On 02/18/2022 11:15AM ; [facility] Note: Unchanged Spinal Stenosis Lumbosacral 05/20/2021 GLENNA MARQUEZ M.D. Active Last Documented On 2 10:56AM ; [facility] Atrial Fibrillation 03/02/2021 GLENNA MARQUEZ M.D. Active Last Documented On 1 11:51AM ; [facility] Note: Unchanged Hyperlipidemia 08/04/2017 GLENNA MARQUEZ M.D. Active Last Documented On 8 10:00AM ; [facility] Note: Unchanged Esophageal Reflux 05/25/2012 GLENNA June Active Last Documented On 4 9:40AM ; [facility] Hyperlipidemia 08/25/2010 GLENNA MARQUEZ M.D. Inactive Last Documented On 5 10:50AM ; [facility] Essential Hypertension 08/25/2010 GLENNA Vieira.DJun Active Last Documented On 4 9:40AM ; [facility] Plan of Treatment - Return to the clinic if condition worsens or new symptoms arise - Last Documented On 08/28/2023 11:24AM ; [facility] - Continue current medication - Last Documented On 08/28/2023 11:24AM ; [facility] - Patient to call if problem develops - Last Documented On 08/28/2023 11:24AM ; [facility] Education and Decision Aids were provided during visit for: Education and counseling Adv ice to have regular exercise regimen Last Documented On 11:19AM ; [facility] Assessments Includes: Assessments from this encounter Findings - I48.91 - Unspecified atrial fibrillation - Last Documented On 08/28/2023 11:24AM ; [facility] - I10 - Essential (primary) hypertension - Last Documented On 08/28/2023 11:24AM ; [facility] - K21.9 - Gastro-esophageal reflux disease without esophagitis - Last Documented On 08/28/2023 11:24AM ; [facility] - K59.03 - Drug induced constipation - Last Documented On 08/28/2023 11:24AM ; [facility] - N18.9 - Chronic kidney disease, unspecified - Last Documented On 08/28/2023 11:24AM ; [facility] - E78.5 - Hyperlipidemia, unspecified - Last Documented On 08/28/2023 11:24AM ; [facility] - M48.07 - Spinal stenosis, lumbosacral region - Last Documented On 08/28/2023 11:24AM ; [facility] Instructions Includes: Instructions from this encounter Education and Decision Aids were provided during visit for: Education and counseling Adv ice to have regular exercise regimen Last Documented On 11:19AM ; [facility] Medical Equipment - Implanted Devices Includes: Current Devices No Medical Equipment Recorded Medications Includes: Medications discussed during this encounter and other current Medications Discontinued / Stopped on this date GLENNA MARQUEZ M.D. on 12/20/2022 Lisinopril 10 MG Oral Tablet Provider: GLENNA MARQUEZ M.D. Diagnosis: Essential (prima ry) hypertension Last Documented On 08/28/2023 11:06AM By SAI MARQUEZ MD ; [facility] Current Medications (continue as prescribed) HYDROcodone-Acetaminophen 7. 5-325 MG Oral Tablet 09/11/2023 Provider: GLENNA MARQUEZ M.D. Diagnosis: Spinal stenosis, lumbosacral region Take one four times a day as needed Last Documented On 09/11/2023 10:36AM By SAI MARQUEZ MD ; [facility] Lisinopril 20 MG Oral Tablet 07/10/2023 Provider: GLENNA MARQUEZ M.D. Diagnosis: Essential (prima ry) hypertension TAKE 1 TABLET BY MOUTH TWICE DAILY Last Documented On 07/10/2023 3:00PM By SAI MARQUEZ MD ; [facility] Eliquis 5 MG Oral Tablet 07/10/2023 Provider: SAI MARQUEZ M.D. Diagnosis: Unspecified atri al fibrillation One tablet twice a day Last Documented On 07/10/2023 2:28PM By SAI MARQUEZ MD ; [facility] Naloxone HCl 4 MG/0.1ML Nasal Liquid 03/29/2023 Provider: GLENNA MARQUEZ M.D. Diagnosis: residential (curre nt) use of opiate analgesic as directed 4 mg nasally as needed Last Documented On 03/29/2023 11:32AM By SAI MARQUEZ MD ; [facility] Pravastatin Sodium 20 MG Oral Tablet 03/29/2023 Provider: GLENNA MARQUEZ M.D. Diagnosis: Hyperlipidemia, unspecified TAKE 1 TABLET BY MOUTH DAILY Last Documented On 03/29/2023 1:37PM By SAI MARQUEZ MD ; [facility] Suspended Medications MiraLax 17 GM/SCOOP Oral Powder 02/22/2023 Provider: GLENNA MARQUEZ M.D. Diagnosis: as directed 1 to scops q day Last Documented On 02/22/2023 8:51AM By GUERDA Beavers LPN ; [facility] Medications Administered Includes: Administered [...] Last Documented: On 08/28/2023 10:50A M ; [facility] Results Includes: Results discussed [...] 12/09/2022 Last Documented On 4 10:45AM ; [facility] DME in home: 06/14/2022 Last Documented On 4 10:45AM ; [facility] DME in home: cane 06/14/2022 Last Documented On 4 10:45AM ; [facility] [PHQ-2] Patient Health Questionnaire 2 i tem total score: 17 (Scale: 0-6) 02/10/2021 Last Documented On 4 10:45AM ; [facility] Difficulty walking 02/10/2021 Last Documented On 4 10:45AM ; [facility] No consumption of alcohol 02/10/2021 Last Documented On 4 10:45AM ; [facility] Not using drugs 02/10/2021 Last Documented On 4 10:45AM ; [facility] Stopped smoking 40 years ago 12/23/2020 Last Documented On 4 10:45AM ; [facility] Current nonsmoker 07/10/2020 Last Documented On 4 10:45AM ; [facility] Former smoker Pt states he quit smoking over 50 yrs ago 07/10/2020 Last Documented On 4 10:45AM ; [facility] Feeling down, depressed, or hopeless in the last 2 weeks? 0 pt Not at all 07/01/2020 Last Documented On 4 10:45AM ; [facility] Lost interest or pleasure in doing thing s was 0 Not at all 07/01/2020 Last Documented On 4 10:45AM ; [facility] Not using alcohol 07/01/2020 Last Documented On 4 10:45AM ; [facility] Non-smoker 11/06/2019 Last Documented On 4 10:45AM ; [facility] No tobacco use prev hx of 50 pack years smoking at young age 0105/08/2019 Last Documented On 4 10:45AM ; [facility] Not using alcohol 11/03/2017 Last Documented On 4 10:45AM ; [facility] Smoking status : Former smoker 8 Last Documented On 4 10:45AM ; [facility] Lives alone 07/23/2012 Last Documented On 4 10:45AM ; [facility] Caffeine use 09/28/2011 Last Documented On 4 10:45AM ; [facility] Single 09/21/2011 Last Documented On 4 10:45AM ; [facility] Retired from work 07/07/2011 Last Documented On 4 10:45AM ; [facility] Abnormal diet TRY TO EAT HARDLY ANY RED MEAT. EAT FISH,VEGETABLES, ETC 08/25/2010 Last Documented On 4 10:45AM ; [facility] Exercise frequency BIKE RIDE 1/2 HR, WAL K 1/2 HR, WEIGHTS 1/2 HR 08/25/2010 Last Documented On 4 10:45AM ; [facility] Occupation [employer] 200608/25/2010 Last Documented On 4 10:45AM ; [facility] Procedures and Surgical History Includes: Procedures from this encounter Procedures Code Diagnosis Performing Provider Service L ocation Service Date use of tobacco assessment performed 1000F Last Documented On 4 10:50AM ; [facility] review of medications documented 1160F Last Documented On 4 10:50AM ; [facility] Surgical History Last Updated No Pacemaker 02/10/2021 Last Documented On 4 10:45AM ; [facility] History of prostate surgery 09/2009 Last Documented On 4 10:45AM ; [facility] Medical History Includes: Medical History addressed during this encounter Description Last Updated Vaccine history 05/30/2023 Last Documented On 4 10:45AM ; [facility] No diagnosis of history of chronic obstr uctive pulmonary disease 12/09/2022 Last Documented On 4 10:45AM ; [facility] No diagnosis of history of diabetes fozia itus 12/09/2022 Last Documented On 4 10:45AM ; [facility] No history of Congestive Heart Failure 0 12/09/2022 Last Documented On 4 10:45AM ; [facility] Surgery prostate and bladder surgery 04/2022 Last Documented On 4 10:45AM ; [facility] Please list all illnesses/co nditions you have been diagnosed with: Cancer. Prostate and Bladder 02/10/2021 Last Documented On 4 10:45AM ; [facility] Back brace 02/10/2021 Last Documented On 4 10:45AM ; [facility] Currently wearing eyeglasses 02/10/2021 Last Documented On 4 10:45AM ; [facility] No Pain Pump 02/10/2021 Last Documented On 4 10:45AM ; [facility] No Spinal cord stimulator 02/10/2021 Last Documented On 4 10:45AM ; [facility] Please list all surgeries: Prostrate marilu e 2009. bladder. sept 201302/10/2021 Last Documented On 4 10:45AM ; [facility] Severe Pain 02/10/2021 Last Documented On 4 10:45AM ; [facility] Uses a cane for support 02/10/2021 Last Documented On 4 10:45AM ; [facility] No Contact with and (Suspected) exposure to COVID-19 07/01/2020 Last Documented On 4 10:45AM ; [facility] No fall 07/01/2020 Last Documented On 4 10:45AM ; [facility] Not using Opioids 07/01/2020 Last Documented On 4 10:45AM ; [facility] Denies a fear of falling. 05/08/2019 Last Documented On 4 10:45AM ; [facility] Has had no fall in the last 12 months. 0 05/08/2019 Last Documented On 4 10:45AM ; [facility] Medication compliance 07/23/2012 Last Documented On 4 10:45AM ; [facility] Taking medication 09/28/2011 Last Documented On 4 10:45AM ; [facility] Prostate Ca, SP Prostatectomy ~ Urology Dr Charlton 07/07/2011 Last Documented On 4 10:45AM ; [facility] History of essential hypertension 2011 Last Documented On 4 10:45AM ; [facility] History of hyperlipidemia 07/07/2011 Last Documented On 4 10:45AM ; [facility] History of hypertension 08/25/2010 Last Documented On 4 10:45AM ; [facility] Family History Includes: Family History addressed during this encounter Description Last Updated Family history of Cancer Breast Cancer 0 12/09/2022 Last Documented On 4 10:45AM ; [facility] Not using Opioids 12/09/2022 Last Documented On 4 10:45AM ; [facility] Fraternal history of family history of i schemic heart disease 02/10/2021 Last Documented On 4 10:45AM ; [facility] Fraternal history of coronary artery dis ease 08/04/2017 Last Documented On 4 10:45AM ; [facility] Family history reviewed - unchanged [facility] e last visit 11/06/2015 Last Documented On 4 10:45AM ; [facility] Fraternal history of cancer 04/29/2015 Last Documented On 4 10:45AM ; [facility] Fraternal history of heart disease 04/29 Last Documented On 4 10:45AM ; [facility] Maternal history of cancer 04/29/2015 Last Documented On 4 10:45AM ; [facility] Family history of cancer 07/07/2011 Last Documented On 4 10:45AM ; [facility] Family history of coronary artery diseas e 07/07/2011 Last Documented On 4 10:45AM ; [facility] Brother 69 years old [facility] [place] 8 YEARS AGO 08/25/2010 Last Documented On 4 10:45AM ; [facility] Father 1985 AT AGE 74- PUMA GEHRIG'S TYPE DISEASE 08/25/2010 Last Documented On 4 10:45AM ; [facility] Heart disease 08/25/2010 Last Documented On 4 10:45AM ; [facility] Mother 1995 AT AGE 72- BREAST CANCER 08/25/2010 Last Documented On 4 10:45AM ; [facility] Review of Systems Includes: Review [...] Active Last Documented On 4 10:45AM ; [facility] Allergy 12/22/2015 Active Last Documented On 4 10:45AM ; [facility] Encounters Encounter Provider Location Date Check-In Time Check-Out Time Diagnosis CHECK UP GLENNA MARQUEZ M.D. [facility] 08/28/19 24 10:42AM 11:19AM Essential Hypertension, Esophageal Reflux,Hyperl ipidemia,Atri al Fibrillation, Spinal Stenosis Lumbosacral,C onstipation Drug-induced, Chronic Renal Failure Insurance Includes: Active Insurance Policies Plan Name Member ID Group # Subscriber Relationship Effect shannon Dates 1 - MEDICARE PART A CLAIMS/NGS [id number] MARIANNA JUAN Self 2 - [facility] OPTIONS [id number] MARIANNA JUAN Self Clinical Notes Includes: Clinical Notes from this encounter * Progress note Date Encounter Last Documented by 08/28/2023 CHECK UP Last documented on 08/28/2023; 11:24 AM, GLENNA MARQUEZ M.D.; [facility] Active Problems & Conditions - I48.91 [...]
--- OUTSIDE RECORDS SUMMARY | 2024-06-26 05:52 | XMS_ITS | Clinical Summary ---
Author Organization [facility] Address [address] [place] [address] Phone Care Team Providers Care Agricultural Labor Camp Manager Name Role Phone JIMMY PRICE, SAI Primary Care Provider [phone] JIMMY Andrews, GLENNA Macias Unavailable [phone] Reason for Visit and Chief Complaint CAROTID ULTRASOUND Problems Includes: Problems addressed during this encounter and other active Problems All Visits Onset Date Resolved Date Provider Condition S tatus Chronic Renal Failure 06/14/2022 MEGAN MARQUEZ M.D. Active Last Documented On 06/14/2022 11:26AM ; [facility] Note: Unchanged Constipation Drug-induced 02/18/2022 GLENNA MARQUEZ M.D. Active Last Documented On 02/18/2022 11:15AM ; [facility] Note: Unchanged Spinal Stenosis Lumbosacral 05/20/2021 GLENNA MARQUEZ M.D. Active Last Documented On 2 10:56AM ; [facility] Atrial Fibrillation 03/02/2021 GLENNA MARQUEZ M.D. Active Last Documented On 1 11:51AM ; [facility] Note: Unchanged Hyperlipidemia 08/04/2017 GLENNA MARQUEZ M.D. Active Last Documented On 8 10:00AM ; [facility] Note: Unchanged Esophageal Reflux 05/25/2012 GLENNA June Active Last Documented On 4 9:40AM ; [facility] Essential Hypertension 08/25/2010 GLENNA WHEELER M.D. Active Last Documented On 4 9:40AM ; [facility] Plan of Treatment No Plan [...] 09/11/2023 10:36AM By SAI MARQUEZ MD ; [facility] Lisinopril 20 MG Oral Tablet 07/10/2023 Provider: GLENNA MARQUEZ M.D. Diagnosis: Essential (prima ry) hypertension TAKE 1 TABLET BY MOUTH TWICE DAILY Last Documented On 07/10/2023 3:00PM By SAI MARQUEZ MD ; [facility] Eliquis 5 MG Oral Tablet 07/10/2023 Provider: SAI MARQUEZ M.D. Diagnosis: Unspecified atri al fibrillation One tablet twice a day Last Documented On 07/10/2023 2:28PM By SAI MARQUEZ MD ; [facility] Naloxone HCl 4 MG/0.1ML Nasal Liquid 03/29/2023 Provider: GLENNA MARQUEZ M.D. Diagnosis: prison (curre nt) use of opiate analgesic as directed 4 mg nasally as needed Last Documented On 03/29/2023 11:32AM By SAI MARQUEZ MD ; [facility] Pravastatin Sodium 20 MG Oral Tablet 03/29/2023 Provider: GLENNA MARQUEZ M.D. Diagnosis: Hyperlipidemia, unspecified TAKE 1 TABLET BY MOUTH DAILY Last Documented On 03/29/2023 1:37PM By SAI MARQUEZ MD ; [facility] Suspended Medications MiraLax 17 GM/SCOOP Oral Powder 02/22/2023 Provider: GLENNA MARQUEZ M.D. Diagnosis: as directed 1 to scops q day Last Documented On 02/22/2023 8:51AM By GUERDA Beavers LPN ; [facility] Medications Administered Includes: [...] OF EXTRACRANIAL ARTERIES; COMP [place] (Professional Comp.) 51618 Occlusion and stenosis of bilateral carotid arteries ANNAMARIA JONES MD [facility] 09/18/2023 Last Documented On 4 10:18AM ; [facility] Medical History Includes: Medical History [...] Active Last Documented On 4 10:45AM ; [facility] Allergy 12/22/2015 Active Last Documented On 4 10:45AM ; [facility] Encounters Encounter Provider Location Date Check-In Time Check-Out Time Diagnosis CAROTID ULTRASOUND ANNAMARIA JONES MD [facility] 09/18/19 24 10:41AM 11:28AM Insurance Includes: Active Insurance Policies Plan Name Member ID Group # Subscriber Relationship Effect shannon Dates 1 - MEDICARE PART A CLAIMS/NGS [id number] MARIANNA Salas 2 - [facility] [facility] OPTIONS [id number] MARIANNA Salas Clinical Notes Includes: Clinical Notes from this encounter No Clinical Notes Recorded
--- OUTSIDE RECORDS SUMMARY | 2024-06-26 05:52 | XMS_ITS | Clinical Summary ---
Author Organization [facility] Address [address] [place] [address] Phone Care Team Providers Care Relaster Name Role Phone JIMMY PRICE, SAI Primary Care Provider [phone] JIMMY Andrews, GLENNA Macias Unavailable [phone] Reason for Visit and Chief Complaint ECHOCARDIOGRAM Problems Includes: Problems addressed during this encounter and other active Problems All Visits Onset Date Resolved Date Provider Condition S tatus Chronic Renal Failure 06/14/2022 MEGAN MARQUEZ M.D. Active Last Documented On 06/14/2022 11:26AM ; [facility] Note: Unchanged Constipation Drug-induced 02/18/2022 GLENNA MARQUEZ M.D. Active Last Documented On 02/18/2022 11:15AM ; [facility] Note: Unchanged Spinal Stenosis Lumbosacral 05/20/2021 GLENNA MARQUEZ M.D. Active Last Documented On 2 10:56AM ; [facility] Atrial Fibrillation 03/02/2021 GLENNA MARQUEZ M.D. Active Last Documented On 1 11:51AM ; [facility] Note: Unchanged Hyperlipidemia 08/04/2017 GLENNA MARQUEZ M.D. Active Last Documented On 8 10:00AM ; [facility] Note: Unchanged Esophageal Reflux 05/25/2012 GLENNA June Active Last Documented On 4 9:40AM ; [facility] Essential Hypertension 08/25/2010 GLENNA WHEELER M.D. Active Last Documented On 4 9:40AM ; [facility] Plan of Treatment No Plan of [...] 09/11/2023 10:36AM By SAI MARQUEZ MD ; [facility] Lisinopril 20 MG Oral Tablet 07/10/2023 Provider: GLENNA MARQUEZ M.D. Diagnosis: Essential (prima ry) hypertension TAKE 1 TABLET BY MOUTH TWICE DAILY Last Documented On 07/10/2023 3:00PM By SAI MARQUEZ MD ; [facility] Eliquis 5 MG Oral Tablet 07/10/2023 Provider: SAI MARQUEZ M.D. Diagnosis: Unspecified atri al fibrillation One tablet twice a day Last Documented On 07/10/2023 2:28PM By SAI MARQUEZ MD ; [facility] Naloxone HCl 4 MG/0.1ML Nasal Liquid 03/29/2023 Provider: GLENNA MARQUEZ M.D. Diagnosis: manager terminal (curre nt) use of opiate analgesic as directed 4 mg nasally as needed Last Documented On 03/29/2023 11:32AM By SAI MARQUEZ MD ; [facility] Pravastatin Sodium 20 MG Oral Tablet 03/29/2023 Provider: GLENNA MARQUEZ M.D. Diagnosis: Hyperlipidemia, unspecified TAKE 1 TABLET BY MOUTH DAILY Last Documented On 03/29/2023 1:37PM By SAI MARQUEZ MD ; [facility] Suspended Medications MiraLax 17 GM/SCOOP Oral Powder 02/22/2023 Provider: GLENNA MARQUEZ M.D. Diagnosis: as directed 1 to scops q day Last Documented On 02/22/2023 8:51AM By GUERDA Beavers LPN ; [facility] Medications Administered Includes: [...] Date ECHOCARDIOGRAPHY- TRANSTHORAC W/ DOPPLER (Professional Comp.) 57161 Other persistent atrial fibrillation, Essential (primary) hypertension, Mixed hyperlipidemia, Rheumatic disorders of both mitral and tricuspid valves CALOS JONES MD [facility]- 08/25/2023 Last Documented On 4 1:23PM ; [facility] ELECTROCARDIAGRAM READING FEE (EKG) (DISTINCT PROCEDURAL SERVICE DIFFERENT SITE) [id number] Other persistent atrial fibrillation, Essential (primary) hypertension CALOS JONES MD [facility]- 08/25/2023 Last Documented On 4 1:23PM ; [facility] Medical History Includes: Medical History addressed [...] Active Last Documented On 4 10:45AM ; [facility] Allergy 12/22/2015 Active Last Documented On 4 10:45AM ; [facility] Encounters Encounter Provider Location Date Check-In Time Check-Out Time Diagnosis ECHOCARDIOGRAM CALOS JONES MD [facility] 4 10:40AM 11:26AM Insurance Includes: Active Insurance Policies Plan Name Member ID Group # Subscriber Relationship Effect shannon Dates 1 - MEDICARE PART A CLAIMS/NGS [id number] MARIANNA Salas 2 - [facility] OPTIONS [id number] MARIANNA Salas Clinical Notes Includes: Clinical Notes from this encounter No Clinical Notes Recorded
--- OUTSIDE RECORDS SUMMARY | 2024-06-26 05:52 | XMS_ITS | Clinical Summary ---
Author Organization [facility] Address [address] [place] [address] Phone Care Team Providers Care Excel Analyst Name Role Phone JIMMY PRICE, SAI Primary Care Provider [phone] JIMMY Andrews, GLENNA Macias Unavailable [phone] Reason for Visit and Chief Complaint [facility] CHECK UP Problems Includes: Problems addressed during this encounter and other active Problems All Visits Onset Date Resolved Date Provider Condition S tatus Chronic Renal Failure 06/14/2022 MEGAN MARQUEZ M.D. Active Last Documented On 06/14/2022 11:26AM ; [facility] Note: Unchanged Constipation Drug-induced 02/18/2022 GLENNA MARQUEZ M.D. Active Last Documented On 02/18/2022 11:15AM ; [facility] Note: Unchanged Spinal Stenosis Lumbosacral 05/20/2021 GLENNA MARQUEZ M.D. Active Last Documented On 2 10:56AM ; [facility] Atrial Fibrillation 03/02/2021 GLENNA MARQUEZ M.D. Active Last Documented On 1 11:51AM ; [facility] Note: Unchanged Hyperlipidemia 08/04/2017 GLENNA MARQUEZ M.D. Active Last Documented On 8 10:00AM ; [facility] Note: Unchanged Esophageal Reflux 05/25/2012 GLENNA June Active Last Documented On 4 9:40AM ; [facility] Essential Hypertension 08/25/2010 GLENNA WHEELER M.D. Active Last Documented On 4 9:40AM ; [facility] Plan of Treatment No Plan of Treatment [...] 10:36AM By SAI MARQUEZ MD ; [facility] Lisinopril 20 MG Oral Tablet 07/10/2023 Provider: GLENNA MARQUEZ M.D. Diagnosis: Essential (prima ry) hypertension TAKE 1 TABLET BY MOUTH TWICE DAILY Last Documented On 07/10/2023 3:00PM By SAI MARQUEZ MD ; [facility] Eliquis 5 MG Oral Tablet 07/10/2023 Provider: SAI MARQUEZ M.D. Diagnosis: Unspecified atri al fibrillation One tablet twice a day Last Documented On 07/10/2023 2:28PM By SAI MARQUEZ MD ; [facility] Naloxone HCl 4 MG/0.1ML Nasal Liquid 03/29/2023 Provider: GLENNA MARQUEZ M.D. Diagnosis: skilled nursing (curre nt) use of opiate analgesic as directed 4 mg nasally as needed Last Documented On 03/29/2023 11:32AM By SAI MARQUEZ MD ; [facility] Pravastatin Sodium 20 MG Oral Tablet 03/29/2023 Provider: GLENNA MARQUEZ M.D. Diagnosis: Hyperlipidemia, unspecified TAKE 1 TABLET BY MOUTH DAILY Last Documented On 03/29/2023 1:37PM By SAI MARQUEZ MD ; [facility] Suspended Medications MiraLax 17 GM/SCOOP Oral Powder 02/22/2023 Provider: GLENNA MARQUEZ M.D. Diagnosis: as directed 1 to scops q day Last Documented On 02/22/2023 8:51AM By GUERDA Beavers LPN ; [facility] Medications Administered Includes: Administered Medications [...] Last Documented On 4 10:45AM ; [facility] Allergy 12/22/2015 Active Last Documented On 4 10:45AM ; [facility] Encounters Encounter Provider Location Date Check-In Time Check- Out Time Diagnosis HE[facility] CENTER CHECK UP CALOS JONES MD [facility] 4 11:30AM 11:53AM Insurance Includes: Active Insurance Policies Plan Name Member ID Group # Subscriber Relationship Effect shannon Dates 1 - MEDICARE PART A CLAIMS/NGS [id number] MARIANNA Salas 2 - [facility] OPTIONS [id number] MARIANNA Salas Clinical Notes Includes: Clinical Notes from this encounter No Clinical Notes Recorded
--- OUTSIDE RECORDS SUMMARY | 2024-06-26 05:52 | XMS_ITS ---
Care Plan - [facility] Created on: June 26, 2024 DRAKEMARIANNA : 1945 Sex: Male Author Organization [facility] Address [address] [place] [address] Phone Care Team Providers Care Psychologist Private Practice Name Role Phone JIMMY PRICE, SAI Primary Care Provider [phone] JIMMY Andrews, GLENNA Macias Unavailable [phone]
--- NOTE | 2024-06-26 05:57 | ED_ITS ---
HPI - Fall General Chief Complaint: Fall Stated Complaint: FALL Time Seen by Provider: 06/26/24 05:56 Source: patient Mode of arrival: wheelchair Limitations: no limitations History of Present Illness HPI Narrative: patient is an 79-year-old white male wheeled to the emergency room from [facility] after he had a ground level fall. Patient stated he had had a bowel movement and had sold his bed so the nurse got him out of bed to change the sheets on the bed. She left him standing and then went to answer another call light Elsewhere. Unfortunately patient walks with a walker and even that he can only walk about 10 ft. He attempted to sit in the wheelchair without locking wheelchair and he slipped and fell backwards on his buttocks now complains of buttock pain lower lumbar pain neck pain and a little bit of a headache. Denies any loss of consciousness denies any new weakness or numbness or recent illness problems voiding, problems breathing cough fever sore throat runny nose palpitations chest or abdominal pain nausea vomiting. He has been constipated lately. Denied problems eating or drinking. He says he has swelling in his lower extremities this is chronic he says this is from his atrial fibrillation. Denies any other swelling lumps or bumps or any other injuries or pain elsewhere Except a minor abrasion on his right arm that is nontender. Denies any dizziness or lightheadedness or rash. He has had some generalized itching he does not know what that is been caused from. Denies any other complaints. Past medical history acute kidney failure urinary tract infection diskitis lumbosacral region spondylosis lumbar region dehydration acute pyelonephritis secondary malignant neoplasm of bone scoliosis of the lumbar area essential hypertension malignant neoplasm prostate and bladder. Patient has a history of atrial fib and has been on Eliquis but I do not think he is taking it currently. He also has a history of CVA. See other past medical history section reviewed Related Data Home Medications ?Medication ?Instructions ?Recorded ?Confirmed ?Last Taken ?Type apixaban 5 mg tablet (Eliquis) 5 mg PO Q12H 05/20/24 06/26/24 Unknown History pravastatin 20 mg tablet 20 mg PO DAILY 05/20/24 05/20/24 Unknown History Allergies Allergy/AdvReac Type Severity Reaction Status Date / Time No Known Allergies Allergy Verified 06/26/24 05:58 Review of Systems Review of Systems: All systems reviewed & are unremarkable except as noted in HPI and below PMFSH Past Medical History Medical History CVA (cerebral vascular accident) Depression Cataracts, bilateral Glaucoma Hemorrhoids GERD (gastroesophageal reflux disease) BPH (benign prostatic hyperplasia) Peripheral vascular disease Atrial fibrillation Hyperlipidemia Hypertension Chronic back pain Surgical History Surgical History History of bladder surgery H/O prostatectomy Social History Social History Smoking packs per day: 2 Smoking cigarettes per day: 40.0 Years smoked: 7 Smoking pack-years: 14.00 Smoking status: Former smoker Tobacco type: cigarettes, pipe and cigars Second hand tobacco smoke exposure: No Smoking end date: 05/20/73 Alcohol intake: never Substance use: never Substance use type: does not use Do You Feel Safe in your Home?: No Lack of Transportation: YES Lack of Food: Never True Current Housing: I Have Housing Concerned About Future Housing: No Difficulty Paying Gas/Electric Bills: No Difficulty Paying for Meds: No Currently Unemployed: No Education: Bachelor's Degree Difficulty w/ Childcare or Family Care: No Spiritual care concerns: No Exam Narrative: ?White male patient with no apparent distress.? Head normocephalic, atraumatic.? Eyes conjunctiva pink sclera nonicteric.? Extraocular movements are intact.? Ears externally normal.? Oropharynx is clear with moist mucous membranes without exudates.? Neck is kyphotic mild diffuse tenderness With no lymphadenopathy.? Back lower thoracic and lumbar and paraspinal tenderness. Pelvis is stable left hip is tender lower extremities are stiff he does have good range of motion of his hips. He has no tenderness of his lower extremity with exception of his right hip without any contusion or skin changes.? Lungs are clear.? Heart is regular rate and rhythm without murmurs gallops or rubs.? Chest wall nontender. Abdomen is soft and nontender no hepatosplenomegaly or masses no CVA tenderness no abdominal bruits.? Extremities : As above, has a minor abrasion of his right arm nontender he has full range of motion of his upper extremities with no tenderness. His extremities have no cyanosis or clubbing. He has +2 edema of his lower extremities? Skin is warm and dry without rashes or lesions.? Neurological patient is alert and oriented x4.? Motor and sensory grossly intact.? patient's gait was not tested. 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 ? History and physical was performed. patient was digitally disimpacted and given a fleets enema. CT head cervical spine thoracic spine lumbar spine and CT pelvis ordered: Per radiologist no active disease sick got some degenerative spinal disease of his thoracic and lumbar and cervical spine with some spinal stenosis, old stroke on his CT of his head Independent Historian: External Source Review: Differential Dx includes but not limited to: Cerebral hemorrhage skull fracture cervical or spinal fracture pelvic fracture Medications were Reviewed: Medications given: Percocet 5 patient was disimpacted and given a saline enema. Independently Interpreted by me: Shared decision Making: Social Situation Impacting Patients Care: Discussed with Dr. Tobin at change of shift who will be assuming patient's care DISCHARGE DIAGNOSIS: ground level fall fecal impaction, headache cervical spine pain lower thoracic and lumbar pain right hip pain DISPOSITION : Discharge back to alf CONDITION AT DISCHARGE: stable improved Discharge Plan Discharge Clinical Impression: Fall from ground level, Acute pain of right hip, Fecal impaction Degenerative arthritis of spine Qualifiers: Spinal region: unspecified Spinal osteoarthritis complication: without myelopathy or radiculopathy Qualified Code(s): M47.819 - Spondylosis without myelopathy or radiculopathy, site unspecified Condition: Stable Instructions: Constipation (ED), Lumbar Spinal Stenosis (ED), Degenerative Disc Disease (ED), Fleet Enema (ED) Additional Instructions: Fleet enema daily as needed. Follow up with primary care provider this week. Return if he gets worse or develops any new symptoms. Dibucaine ointment to rectal area as needed for discomfort. Increase her fluids by mouth. Patient Language: Irish Prescriptions: No Action pravastatin 20 mg tablet 20 mg PO DAILY Eliquis 5 mg tablet 5 mg PO Q12H acetaminophen 325 mg Tablet 650 mg PO Q4H PRN (Reason: Mild Pain (1-3) Or Fever) Qty: 10 0RF lidocaine [Lidoderm] 5 % Adhesive Patch,Medicated 1 patch transdermal DAILY Qty: 15 0RF oxycodone-acetaminophen 5-325 mg Tablet 1 tablet PO Q4H PRN (Reason: Pain Rated 4-6) Qty: 20 0RF morphine 15 mg Tablet Extended Release 15 mg PO Q12HR Qty: 10 0RF amlodipine [Norvasc] 5 mg tablet 5 mg PO DAILY Qty: 10 0RF prednisone 50 mg tablet 50 mg PO DAILY Qty: 5 0RF Follow-up/Referrals: Kyle Soares MD [Primary Care Provider] -
--- OUTSIDE RECORDS SUMMARY | 2024-06-26 06:00 | XMS_ITS | Clinical Summary ---
Author Organization [facility] Address [address] [place] [address] Phone Care Team Providers Care Manager It Training Name Role Phone JIMMY PRICE, SAI Primary Care Provider [phone] JIMMY Andrews, GLENNA Macias Unavailable [phone] Reason for Visit and Chief Complaint visit [...] Active Last Documented On 06/14/2022 11:26AM ; [facility] Note: Unchanged Constipation Drug-induced 02/18/2022 GLENNA MARQUEZ M.D. Active Last Documented On 02/18/2022 11:15AM ; [facility] Note: Unchanged Spinal Stenosis Lumbosacral 05/20/2021 GLENNA MARQUEZ M.D. Active Last Documented On 2 10:56AM ; [facility] Atrial Fibrillation 03/02/2021 GLENNA MARQUEZ M.D. Active Last Documented On 1 11:51AM ; [facility] Note: Unchanged Hyperlipidemia 08/04/2017 GLENNA MARQUEZ M.D. Active Last Documented On 8 10:00AM ; [facility] Note: Unchanged Esophageal Reflux 05/25/2012 GLENNA June Active Last Documented On 4 9:40AM ; [facility] Hyperlipidemia 08/25/2010 GLENNA MARQUEZ M.D. Inactive Last Documented On 5 10:50AM ; [facility] Essential Hypertension 08/25/2010 GLENNA WHEELER M.D. Active Last Documented On 4 9:40AM ; [facility] Plan of Treatment - Monitor Blood Pressure at home - Last Documented On 05/30/2023 11:25AM ; [facility] - Return to the [...] - Last Documented On 05/30/2023 11:25AM ; [facility] - I10 - Essential [...] 05/30/2023 11:18AM By SAI MARQUEZ MD ; [facility] New / Renewed during this visit GLENNA MARQUEZ M.D. on 05/30/2023 Lisinopril 20 MG Oral Tablet Provider: GLENNA MARQUEZ M.D. 90 day supply: 180 tablet, 0 refills Diagnosis: Essential (primary) hypertension One tablet twice a day Pharmacy: [address] [id number] - Last Documented On 07/10/2023 2:02PM By SAI MARQUEZ MD ; [facility] Current Medications (continue as prescribed) HYDROcodone-Acetaminophen 7. 5-325 MG Oral Tablet 09/11/2023 Provider: GLENNA MARQUEZ M.D. Diagnosis: Spinal stenosis, lumbosacral region Take one four times a day as needed Last Documented On 09/11/2023 10:36AM By SAI MARQUEZ MD ; [facility] Lisinopril 20 MG Oral Tablet 07/10/2023 Provider: GLENNA MARQUEZ M.D. Diagnosis: Essential (prima ry) hypertension TAKE 1 TABLET BY MOUTH TWICE DAILY Last Documented On 07/10/2023 3:00PM By SAI MARQUEZ MD ; [facility] Eliquis 5 MG Oral Tablet 07/10/2023 Provider: SAI MARQUEZ M.D. Diagnosis: Unspecified atri al fibrillation One tablet twice a day Last Documented On 07/10/2023 2:28PM By SAI MARQUEZ MD ; [facility] Naloxone HCl 4 MG/0.1ML Nasal Liquid 03/29/2023 Provider: GLENNA MARQUEZ M.D. Diagnosis: penitentiary (curre nt) use of opiate analgesic as directed 4 mg nasally as needed Last Documented On 03/29/2023 11:32AM By SAI MARQUEZ MD ; [facility] Pravastatin Sodium 20 MG Oral Tablet 03/29/2023 Provider: GLENNA MARQUEZ M.D. Diagnosis: Hyperlipidemia, unspecified TAKE 1 TABLET BY MOUTH DAILY Last Documented On 03/29/2023 1:37PM By SAI MARQUEZ MD ; [facility] Suspended Medications MiraLax 17 GM/SCOOP Oral Powder [...] Ordered by GLENNA Coronel on 05/11/2023 [address] [facility], [place], [address] Collected: 05/26/2023 Report ed: 05/26/2023 11:17 tel: [...] [facility] Note: Responsible Observer: (HRG) BMP [facility] La boratory Ordered by GLENNA Coronel on 05/11/2023 [address] [facility], [place], [address] Collected: 05/26/2023 Report ed: 05/26/2023 11:34 tel: [...] None Last Documented On 4 11:58AM ; [facility] Note: Responsible Observer: (APR) eGFR. 51 mL/min None Last Documented On 4 11:58AM ; [facility] Note: Responsible Observer: (APR) GLUCOSE 86 mg/dL (70 - 105) None Last Documented On 4 11:58AM ; [facility] Note: Responsible Observer: (APR) POTASSIUM 4.3 mmol/L (3.6 - 5.0) None Last Documented On 4 11:58AM ; [facility] Note: Responsible Observer: (APR) SODIUM 139 mmol/L (137 - 145) None Last Documented On 4 11:58AM ; [facility] Note: Responsible Observer: (APR) TCO2 24.0 mmol/L (22.0 - 30.0) None Last Documented On 4 11:58AM ; [facility] Note: Responsible Observer: (APR) [...] 12/09/2022 Last Documented On 4 11:01AM ; [facility] DME in home: 06/14/2022 Last Documented On 4 11:01AM ; [facility] DME in home: cane 06/14/2022 Last Documented On 4 11:01AM ; [facility] [PHQ-2] Patient Health Questionnaire 2 i tem total score: 17 (Scale: 0-6) 02/10/2021 Last Documented On 4 11:01AM ; [facility] Difficulty walking 02/10/2021 Last Documented On 4 11:01AM ; [facility] No consumption of alcohol 02/10/2021 Last Documented On 4 11:01AM ; [facility] Not using drugs 02/10/2021 Last Documented On 4 11:01AM ; [facility] Stopped smoking 40 years ago 12/23/2020 Last Documented On 4 11:01AM ; [facility] Current nonsmoker 07/10/2020 Last Documented On 4 11:01AM ; [facility] Former smoker Pt states he quit smoking over 50 yrs ago 07/10/2020 Last Documented On 4 11:01AM ; [facility] Feeling down, depressed, or hopeless in the last 2 weeks? 0 pt Not at all 07/01/2020 Last Documented On 4 11:01AM ; [facility] Lost interest or pleasure in doing thing s was 0 Not at all 07/01/2020 Last Documented On 4 11:01AM ; [facility] Not using alcohol 07/01/2020 Last Documented On 4 11:01AM ; [facility] Non-smoker 11/06/2019 Last Documented On 4 11:01AM ; [facility] No tobacco use prev hx of 50 pack years smoking at young age 0105/08/2019 Last Documented On 4 11:01AM ; [facility] Not using alcohol 11/03/2017 Last Documented On 4 11:01AM ; [facility] Smoking status : Former smoker 8 Last Documented On 4 11:01AM ; [facility] Lives alone 07/23/2012 Last Documented On 4 11:01AM ; [facility] Caffeine use 09/28/2011 Last Documented On 4 11:01AM ; [facility] Single 09/21/2011 Last Documented On 4 11:01AM ; [facility] Retired from work 07/07/2011 Last Documented On 4 11:01AM ; [facility] Abnormal diet TRY TO EAT HARDLY ANY RED MEAT. EAT FISH,VEGETABLES, ETC 08/25/2010 Last Documented On 4 11:01AM ; [facility] Exercise frequency BIKE RIDE 1/2 HR, WA LK 1/2 HR, WEIGHTS 1/2 HR 08/25/2010 Last Documented On 4 11:01AM ; [facility] Occupation [employer] 200608/25/2010 Last Documented On 4 11:01AM ; [facility] Procedures and Surgical History Includes: [...] 12/09/2022 Last Documented On 4 11:01AM ; [facility] Surgery prostate and bladder surgery 04/2022 Last Documented On 4 11:01AM ; [facility] Please list all illnesses/co nditions you have been diagnosed with: Cancer. Prostate and Bladder 02/10/2021 Last Documented On 4 11:01AM ; [facility] Back brace 02/10/2021 Last Documented On 4 11:01AM ; [facility] Currently wearing eyeglasses 02/10/2021 Last Documented On 4 11:01AM ; [facility] No Pain Pump 02/10/2021 Last Documented On 4 11:01AM ; [facility] No Spinal cord stimulator 02/10/2021 Last Documented On 4 11:01AM ; [facility] Please list all surgeries: Prostrate marilu e 2009. bladder. dec 2013 02/10/2021 Last Documented On 4 11:01AM ; [facility] Severe Pain 02/10/2021 Last Documented On 4 11:01AM ; [facility] Uses a cane for support 02/10/2021 Last Documented On 4 11:01AM ; [facility] No Contact with and (Suspected) exposure to COVID-19 07/01/2020 Last Documented On 4 11:01AM ; [facility] No fall 07/01/2020 Last Documented On 4 11:01AM ; [facility] Not using Opioids 07/01/2020 Last Documented On 4 11:01AM ; [facility] Denies a fear of falling. 05/08/2019 Last Documented On 4 11:01AM ; [facility] Has had no fall in the last 12 months. 0 05/08/2019 Last Documented On 4 11:01AM ; [facility] Medication compliance 07/23/2012 Last Documented On 4 11:01AM ; [facility] Taking medication 09/28/2011 Last Documented On 4 11:01AM ; [facility] Prostate Ca, SP Prostatectomy ~ Urology Dr Charlton 07/07/2011 Last Documented On 4 11:01AM ; [facility] History of essential hypertension 2011 Last Documented On 4 11:01AM ; [facility] History of hyperlipidemia 07/07/2011 Last Documented On 4 11:01AM ; [facility] History of hypertension 08/25/2010 Last Documented On 4 11:01AM ; [facility] Family History Includes: Family History addressed during this encounter Description Last Updated Family history of Cancer Breast Cancer 0 12/09/2022 Last Documented On 4 11:01AM ; [facility] Not using Opioids 12/09/2022 Last Documented [...] Active Last Documented On 4 10:45AM ; [facility] Allergy 12/22/2015 Active Last Documented On 4 10:45AM ; [facility] Encounters Encounter Provider Location Date Check-In Time Check-Out Time Diagnosis CHECK UP GLENNA MARQEUZ M.D. [facility] 05/30/19 24 10:57AM 11:15AM Essential Hypertension, Esophageal Reflux,Hyperl ipidemia,Atri al Fibrillation, Spinal Stenosis Lumbosacral,C onstipation Drug-induced, Chronic Renal Failure Insurance Includes: Active Insurance Policies Plan Name Member ID Group # Subscriber Relationship Effect shannon Dates 1 - MEDICARE PART A CLAIMS/NGS [id number] [facility] [employer] [facility] 2 - [facility] OPTIONS [id number] [facility] [employer] [facility] Clinical Notes Includes: Clinical Notes from this encounter * Progress note Date Encounter Last Documented by 05/30/2023 CHECK UP Last documented on 05/30/2023; 11:25 AM, GLENNA MARQUEZ M.D.; [facility] Active Problems & Conditions [...] Work: Retired from work and occupation [employer] 2006. Marital: Single. Functional: Feeling down, depressed, [...]
--- OUTSIDE RECORDS SUMMARY | 2024-06-26 06:01 | XMS_ITS | Clinical Summary ---
Author Organization [facility] Address [address] [place] [address] Phone Care Team Providers Care Decatizer Name Role Phone JIMMY PRICE, SAI Primary Care Provider [phone] JIMMY Andrews, GLENNA Macias Unavailable [phone] Reason for Visit and Chief Complaint visit [...] Active Last Documented On 06/14/2022 11:26AM ; [facility] Note: Unchanged Constipation Drug-induced 02/18/2022 GLENNA MARQUEZ M.D. Active Last Documented On 02/18/2022 11:15AM ; [facility] Note: Unchanged Spinal Stenosis Lumbosacral 05/20/2021 GLENNA MARQUEZ M.D. Active Last Documented On 2 10:56AM ; [facility] Atrial Fibrillation 03/02/2021 GLENNA MARQUEZ M.D. Active Last Documented On 1 11:51AM ; [facility] Note: Unchanged Hyperlipidemia 08/04/2017 GLENNA MARQUEZ M.D. Active Last Documented On 8 10:00AM ; [facility] Note: Unchanged Esophageal Reflux 05/25/2012 GLENNA June Active Last Documented On 4 9:40AM ; [facility] Hyperlipidemia 08/25/2010 GLENNA MARQUEZ M.D. Inactive Last Documented On 5 10:50AM ; [facility] Essential Hypertension 08/25/2010 GLENNA Vieira.DJun Active Last Documented On 4 9:40AM ; [facility] Plan of Treatment - Return to the clinic if condition worsens or new symptoms arise - Last Documented On 08/28/2023 11:24AM ; [facility] - Continue current medication - Last Documented On 08/28/2023 11:24AM ; [facility] - Patient to call if problem develops - Last Documented On 08/28/2023 11:24AM ; [facility] Education and Decision Aids were provided during visit for: Education and counseling Adv ice to have regular exercise regimen Last Documented On 11:19AM ; [facility] Assessments Includes: Assessments from this encounter Findings - I48.91 - Unspecified atrial fibrillation - Last Documented On 08/28/2023 11:24AM ; [facility] - I10 - Essential (primary) hypertension - Last Documented On 08/28/2023 11:24AM ; [facility] - K21.9 - Gastro-esophageal reflux disease without esophagitis - Last Documented On 08/28/2023 11:24AM ; [facility] - K59.03 - Drug induced constipation - Last Documented On 08/28/2023 11:24AM ; [facility] - N18.9 - Chronic kidney disease, unspecified - Last Documented On 08/28/2023 11:24AM ; [facility] - E78.5 - Hyperlipidemia, unspecified - Last Documented On 08/28/2023 11:24AM ; [facility] - M48.07 - Spinal stenosis, lumbosacral region - Last Documented On 08/28/2023 11:24AM ; [facility] Instructions Includes: Instructions from this encounter Education and Decision Aids were provided during visit for: Education and counseling Adv ice to have regular exercise regimen Last Documented On 11:19AM ; [facility] Medical Equipment - Implanted Devices Includes: Current Devices No Medical Equipment Recorded Medications Includes: Medications discussed during this encounter and other current Medications Discontinued / Stopped on this date GLENNA MARQUEZ M.D. on 12/20/2022 Lisinopril 10 MG Oral Tablet Provider: GLENNA MARQUEZ M.D. Diagnosis: Essential (prima ry) hypertension Last Documented On 08/28/2023 11:06AM By SAI MARQUEZ MD ; [facility] Current Medications (continue as prescribed) HYDROcodone-Acetaminophen 7. 5-325 MG Oral Tablet 09/11/2023 Provider: GLENNA MARQUEZ M.D. Diagnosis: Spinal stenosis, lumbosacral region Take one four times a day as needed Last Documented On 09/11/2023 10:36AM By SAI MARQUEZ MD ; [facility] Lisinopril 20 MG Oral Tablet 07/10/2023 Provider: GLENNA MARQUEZ M.D. Diagnosis: Essential (prima ry) hypertension TAKE 1 TABLET BY MOUTH TWICE DAILY Last Documented On 07/10/2023 3:00PM By SAI MARQUEZ MD ; [facility] Eliquis 5 MG Oral Tablet 07/10/2023 Provider: SAI MARQUEZ M.D. Diagnosis: Unspecified atri al fibrillation One tablet twice a day Last Documented On 07/10/2023 2:28PM By SAI MARQUEZ MD ; [facility] Naloxone HCl 4 MG/0.1ML Nasal Liquid 03/29/2023 Provider: GLENNA MARQUEZ M.D. Diagnosis: alf (curre nt) use of opiate analgesic as directed 4 mg nasally as needed Last Documented On 03/29/2023 11:32AM By SAI MARQUEZ MD ; [facility] Pravastatin Sodium 20 MG Oral Tablet 03/29/2023 Provider: GLENNA MARQUEZ M.D. Diagnosis: Hyperlipidemia, unspecified TAKE 1 TABLET BY MOUTH DAILY Last Documented On 03/29/2023 1:37PM By SAI MARQUEZ MD ; [facility] Suspended Medications MiraLax 17 GM/SCOOP Oral Powder 02/22/2023 Provider: GLENNA MARQUEZ M.D. Diagnosis: as directed 1 to scops q day Last Documented On 02/22/2023 8:51AM By GUERDA Beavers LPN ; [facility] Medications Administered Includes: Administered [...] Last Documented: On 08/28/2023 10:50A M ; [facility] Results Includes: Results discussed [...] 12/09/2022 Last Documented On 4 10:45AM ; [facility] DME in home: 06/14/2022 Last Documented On 4 10:45AM ; [facility] DME in home: cane 06/14/2022 Last Documented On 4 10:45AM ; [facility] [PHQ-2] Patient Health Questionnaire 2 i tem total score: 17 (Scale: 0-6) 02/10/2021 Last Documented On 4 10:45AM ; [facility] Difficulty walking 02/10/2021 Last Documented On 4 10:45AM ; [facility] No consumption of alcohol 02/10/2021 Last Documented On 4 10:45AM ; [facility] Not using drugs 02/10/2021 Last Documented On 4 10:45AM ; [facility] Stopped smoking 40 years ago 12/23/2020 Last Documented On 4 10:45AM ; [facility] Current nonsmoker 07/10/2020 Last Documented On 4 10:45AM ; [facility] Former smoker Pt states he quit smoking over 50 yrs ago 07/10/2020 Last Documented On 4 10:45AM ; [facility] Feeling down, depressed, or hopeless in the last 2 weeks? 0 pt Not at all 07/01/2020 Last Documented On 4 10:45AM ; [facility] Lost interest or pleasure in doing thing s was 0 Not at all 07/01/2020 Last Documented On 4 10:45AM ; [facility] Not using alcohol 07/01/2020 Last Documented On 4 10:45AM ; [facility] Non-smoker 11/06/2019 Last Documented On 4 10:45AM ; [facility] No tobacco use prev hx of 50 pack years smoking at young age 0105/08/2019 Last Documented On 4 10:45AM ; [facility] Not using alcohol 11/03/2017 Last Documented On 4 10:45AM ; [facility] Smoking status : Former smoker 8 Last Documented On 4 10:45AM ; [facility] Lives alone 07/23/2012 Last Documented On 4 10:45AM ; [facility] Caffeine use 09/28/2011 Last Documented On 4 10:45AM ; [facility] Single 09/21/2011 Last Documented On 4 10:45AM ; [facility] Retired from work 07/07/2011 Last Documented On 4 10:45AM ; [facility] Abnormal diet TRY TO EAT HARDLY ANY RED MEAT. EAT FISH,VEGETABLES, ETC 08/25/2010 Last Documented On 4 10:45AM ; [facility] Exercise frequency BIKE RIDE 1/2 HR, WAL K 1/2 HR, WEIGHTS 1/2 HR 08/25/2010 Last Documented On 4 10:45AM ; [facility] Occupation [employer]-RETIRED 200608/25/2010 Last Documented On 4 10:45AM ; [facility] Procedures and Surgical History Includes: Procedures from this encounter Procedures Code Diagnosis Performing Provider Service L ocation Service Date use of tobacco assessment performed 1000F Last Documented On 4 10:50AM ; [facility] review of medications documented 1160F Last Documented On 4 10:50AM ; [facility] Surgical History Last Updated No Pacemaker 02/10/2021 Last Documented On 4 10:45AM ; [facility] History of prostate surgery 09/2009 Last Documented On 4 10:45AM ; [facility] Medical History Includes: Medical History addressed during this encounter Description Last Updated Vaccine history 05/30/2023 Last Documented On 4 10:45AM ; [facility] No diagnosis of history of chronic obstr uctive pulmonary disease 12/09/2022 Last Documented On 4 10:45AM ; [facility] No diagnosis of history of diabetes fozia itus 12/09/2022 Last Documented On 4 10:45AM ; [facility] No history of Congestive Heart Failure 0 12/09/2022 Last Documented On 4 10:45AM ; [facility] Surgery prostate and bladder surgery 04/2022 Last Documented On 4 10:45AM ; [facility] Please list all illnesses/co nditions you have been diagnosed with: Cancer. Prostate and Bladder 02/10/2021 Last Documented On 4 10:45AM ; [facility] Back brace 02/10/2021 Last Documented On 4 10:45AM ; [facility] Currently wearing eyeglasses 02/10/2021 Last Documented On 4 10:45AM ; [facility] No Pain Pump 02/10/2021 Last Documented On 4 10:45AM ; [facility] No Spinal cord stimulator 02/10/2021 Last Documented On 4 10:45AM ; [facility] Please list all surgeries: Prostrate marilu e 2009. bladder. sept 201302/10/2021 Last Documented On 4 10:45AM ; [facility] Severe Pain 02/10/2021 Last Documented On 4 10:45AM ; [facility] Uses a cane for support 02/10/2021 Last Documented On 4 10:45AM ; [facility] No Contact with and (Suspected) exposure to COVID-19 07/01/2020 Last Documented On 4 10:45AM ; [facility] No fall 07/01/2020 Last Documented On 4 10:45AM ; [facility] Not using Opioids 07/01/2020 Last Documented On 4 10:45AM ; [facility] Denies a fear of falling. 05/08/2019 Last Documented On 4 10:45AM ; [facility] Has had no fall in the last 12 months. 0 05/08/2019 Last Documented On 4 10:45AM ; [facility] Medication compliance 07/23/2012 Last Documented On 4 10:45AM ; [facility] Taking medication 09/28/2011 Last Documented On 4 10:45AM ; [facility] Prostate Ca, SP Prostatectomy ~ Urology Dr Charlton 07/07/2011 Last Documented On 4 10:45AM ; [facility] History of essential hypertension 2011 Last Documented On 4 10:45AM ; [facility] History of hyperlipidemia 07/07/2011 Last Documented On 4 10:45AM ; [facility] History of hypertension 08/25/2010 Last Documented On 4 10:45AM ; [facility] Family History Includes: Family History addressed during this encounter Description Last Updated Family history of Cancer Breast Cancer 0 12/09/2022 Last Documented On 4 10:45AM ; [facility] Not using Opioids 12/09/2022 Last Documented On 4 10:45AM ; [facility] Fraternal history of family history of i schemic heart disease 02/10/2021 Last Documented On 4 10:45AM ; [facility] Fraternal history of coronary artery dis ease 08/04/2017 Last Documented On 4 10:45AM ; [facility] Family history reviewed - unchanged [facility] e last visit 11/06/2015 Last Documented On 4 10:45AM ; [facility] Fraternal history of cancer 04/29/2015 Last Documented On 4 10:45AM ; [facility] Fraternal history of heart disease 04/29 Last Documented On 4 10:45AM ; [facility] Maternal history of cancer 04/29/2015 Last Documented On 4 10:45AM ; [facility] Family history of cancer 07/07/2011 Last Documented On 4 10:45AM ; [facility] Family history of coronary artery diseas e 07/07/2011 Last Documented On 4 10:45AM ; [facility] Brother 69 years old [facility] [place] 8 YEARS AGO 08/25/2010 Last Documented On 4 10:45AM ; [facility] Father 1985 AT AGE 74- PUMA GEHRIG'S TYPE DISEASE 08/25/2010 Last Documented On 4 10:45AM ; [facility] Heart disease 08/25/2010 Last Documented On 4 10:45AM ; [facility] Mother 1995 AT AGE 72- BREAST CANCER 08/25/2010 Last Documented On 4 10:45AM ; [facility] Review of Systems Includes: Review of [...] Active Last Documented On 4 10:45AM ; [facility] Allergy 12/22/2015 Active Last Documented On 4 10:45AM ; [facility] Encounters Encounter Provider Location Date Check-In Time Check-Out Time Diagnosis CHECK UP GLENNA MARQUEZ M.D. [facility] 24 10:42AM 11:19AM Essential Hypertension, Esophageal Reflux,Hyperl ipidemia,Atri al Fibrillation, Spinal Stenosis Lumbosacral,C onstipation Drug-induced, Chronic Renal Failure Insurance Includes: Active Insurance Policies Plan Name Member ID Group # Subscriber Relationship Effect shannon Dates 1 - MEDICARE PART A CLAIMS/NGS [id number] MARIANNA JUAN Self 2 - [facility] OPTIONS [id number] MARIANNA JUAN Self Clinical Notes Includes: Clinical Notes from this encounter * Progress note Date Encounter Last Documented by 08/28/2023 CHECK UP Last documented on 08/28/2023; 11:24 AM, GLENNA MARQUEZ M.D.; [facility] Active Problems & Conditions - [...]
--- OUTSIDE RECORDS SUMMARY | 2024-06-26 06:01 | XMS_ITS | Clinical Summary ---
Author Organization [facility] Address [address] [place] [address] Phone Care Team Providers Care Windshield Wiper Repairer Name Role Phone JIMMY PRICE, SAI Primary Care Provider [phone] JIMMY Andrews, GLENNA Macias Unavailable [phone] Reason for Visit and Chief Complaint [facility] CHECK UP Problems Includes: Problems addressed during this encounter and other active Problems All Visits Onset Date Resolved Date Provider Condition S tatus Chronic Renal Failure 06/14/2022 MEGAN MARQUEZ M.D. Active Last Documented On 06/14/2022 11:26AM ; [facility] Note: Unchanged Constipation Drug-induced 02/18/2022 GLENNA MARQUEZ M.D. Active Last Documented On 02/18/2022 11:15AM ; [facility] Note: Unchanged Spinal Stenosis Lumbosacral 05/20/2021 GLENNA MARQUEZ M.D. Active Last Documented On 2 10:56AM ; [facility] Atrial Fibrillation 03/02/2021 GLENNA MARQUEZ M.D. Active Last Documented On 1 11:51AM ; [facility] Note: Unchanged Hyperlipidemia 08/04/2017 GLENNA MARQUEZ M.D. Active Last Documented On 8 10:00AM ; [facility] Note: Unchanged Esophageal Reflux 05/25/2012 GLENNA June Active Last Documented On 4 9:40AM ; [facility] Essential Hypertension 08/25/2010 GLENNA WHEELER M.D. Active Last Documented On 4 9:40AM ; [facility] Plan of Treatment No Plan of Treatment [...] 09/11/2023 10:36AM By SAI MARQUEZ MD ; [facility] Lisinopril 20 MG Oral [...] 07/10/2023 2:28PM By SAI MARQUEZ MD ; [facility] Naloxone HCl 4 MG/0.1ML Nasal Liquid 03/29/2023 Provider: GLENNA MARQUEZ M.D. Diagnosis: longterm (curre nt) use of opiate analgesic as directed 4 mg nasally as needed Last Documented On 03/29/2023 11:32AM By SAI MARQUEZ MD ; [facility] Pravastatin Sodium 20 MG Oral Tablet 03/29/2023 Provider: GLENNA MARQUEZ M.D. Diagnosis: Hyperlipidemia, unspecified TAKE 1 TABLET BY MOUTH DAILY Last Documented On 03/29/2023 1:37PM By SAI MARQUEZ MD ; [facility] Suspended Medications MiraLax 17 GM/SCOOP Oral Powder 02/22/2023 Provider: GLENNA MARQUEZ M.D. Diagnosis: as directed 1 to scops q day Last Documented On 02/22/2023 8:51AM By GUERDA Beavers LPN ; [facility] Medications Administered Includes: Administered [...] Active Last Documented On 4 10:45AM ; [facility] Allergy 12/22/2015 Active Last Documented On 4 10:45AM ; [facility] Encounters Encounter Provider Location Date Check-In Time Check- Out Time Diagnosis [facility] CHECK UP CALOS JONES MD [facility] 4 11:30AM 11:53AM Insurance Includes: Active Insurance Policies Plan Name Member ID Group # Subscriber Relationship Effect shannon Dates 1 - MEDICARE PART A CLAIMS/NGS [id number] MARIANNA Salas 2 - [facility] OPTIONS [id number] MARIANNA Salas Clinical Notes Includes: Clinical Notes from this encounter No Clinical Notes Recorded
--- OUTSIDE RECORDS SUMMARY | 2024-06-26 06:01 | XMS_ITS | Clinical Summary ---
Author Organization [facility] Address [address] [place] [address] Phone Care Team Providers Care Special Class Welder Name Role Phone JIMMY PRICE, SAI Primary Care Provider [phone] JIMMY Andrews, GLENNA Macias Unavailable [phone] Reason for Visit and Chief Complaint CAROTID ULTRASOUND Problems Includes: Problems addressed during this encounter and other active Problems All Visits Onset Date Resolved Date Provider Condition S tatus Chronic Renal Failure 06/14/2022 MEGAN MARQUEZ M.D. Active Last Documented On 06/14/2022 11:26AM ; [facility] Note: Unchanged Constipation Drug-induced 02/18/2022 GLENNA MARQUEZ M.D. Active Last Documented On 02/18/2022 11:15AM ; [facility] Note: Unchanged Spinal Stenosis Lumbosacral 05/20/2021 GLENNA MARQUEZ M.D. Active Last Documented On 2 10:56AM ; [facility] Atrial Fibrillation 03/02/2021 GLENNA MARQUEZ M.D. Active Last Documented On 1 11:51AM ; [facility] Note: Unchanged Hyperlipidemia 08/04/2017 GLENNA MARQUEZ M.D. Active Last Documented On 8 10:00AM ; [facility] Note: Unchanged Esophageal Reflux 05/25/2012 GLENNA June Active Last Documented On 4 9:40AM ; [facility] Essential Hypertension 08/25/2010 GLENNA WHEELER M.D. Active Last Documented On 4 9:40AM ; [facility] Plan of Treatment No Plan of [...] 09/11/2023 10:36AM By SAI MARQUEZ MD ; [facility] Lisinopril 20 MG Oral Tablet 07/10/2023 Provider: GLENNA MARQUEZ M.D. Diagnosis: Essential (prima ry) hypertension TAKE 1 TABLET BY MOUTH TWICE DAILY Last Documented On 07/10/2023 3:00PM By SAI MARQUEZ MD ; [facility] Eliquis 5 MG Oral Tablet 07/10/2023 Provider: SAI MARQUEZ M.D. Diagnosis: Unspecified atri al fibrillation One tablet twice a day Last Documented On 07/10/2023 2:28PM By SAI MARQUEZ MD ; [facility] Naloxone HCl 4 MG/0.1ML Nasal Liquid 03/29/2023 Provider: GLENNA MARQUEZ M.D. Diagnosis: halfway (curre nt) use of opiate analgesic as directed 4 mg nasally as needed Last Documented On 03/29/2023 11:32AM By SAI MARQUEZ MD ; [facility] Pravastatin Sodium 20 MG Oral Tablet 03/29/2023 Provider: GLENNA MARQUEZ M.D. Diagnosis: Hyperlipidemia, unspecified TAKE 1 TABLET BY MOUTH DAILY Last Documented On 03/29/2023 1:37PM By SAI MARQUEZ MD ; [facility] Suspended Medications MiraLax 17 GM/SCOOP Oral Powder 02/22/2023 Provider: GLENNA MARQUEZ M.D. Diagnosis: as directed 1 to scops q day Last Documented On 02/22/2023 8:51AM By GUERDA Beavers LPN ; [facility] Medications Administered Includes: [...] OF EXTRACRANIAL ARTERIES; COMP [place] (Professional Comp.) [id number] Occlusion and stenosis of bilateral carotid arteries ANNAMARIA JONES MD [facility] 09/18/2023 Last Documented On 4 10:18AM ; [facility] Medical History Includes: Medical History addressed [...] Active Last Documented On 4 10:45AM ; [facility] Allergy 12/22/2015 Active Last Documented On 4 10:45AM ; [facility] Encounters Encounter Provider Location Date Check-In Time Check-Out Time Diagnosis CAROTID ULTRASOUND ANNAMARIA JONES MD [facility] 09/18/19 24 10:41AM 11:28AM Insurance Includes: Active Insurance Policies Plan Name Member ID Group # Subscriber Relationship Effect shannon Dates 1 - MEDICARE PART A CLAIMS/NGS [id number] MARIANNA Salas 2 - [facility] OPTIONS [id number] MARIANNA Salas Clinical Notes Includes: Clinical Notes from this encounter No Clinical Notes Recorded
--- OUTSIDE RECORDS SUMMARY | 2024-06-26 06:01 | XMS_ITS ---
Care Plan - [facility] Created on: June 26, 2024 DRAKEMARIANNA : 1945 Sex: Male Author Organization [facility] Address [address] [place] [address] Phone Care Team Providers Care Tear Down Worker Name Role Phone JIMMY PRICE, SAI Primary Care Provider [phone] JIMMY Andrews, GLENNA Macias Unavailable [phone]
--- OUTSIDE RECORDS SUMMARY | 2024-06-26 06:01 | XMS_ITS | Clinical Summary ---
Author Organization [facility] Address [address] [place] [address] Phone Care Team Providers Care Respiratory Therapy Director Name Role Phone JIMMY PRICE, SAI Primary Care Provider [phone] JIMMY Andrews, GLENNA Macias Unavailable [phone] Reason for Visit and Chief Complaint ECHOCARDIOGRAM [...] Last Documented On 1 11:51AM ; [facility] Note: Unchanged Hyperlipidemia 08/04/2017 GLENNA MARQUEZ M.D. Active Last Documented On 8 10:00AM ; [facility] Note: Unchanged Esophageal Reflux 05/25/2012 GLENNA June Active Last Documented On 4 9:40AM ; [facility] Essential Hypertension 08/25/2010 GLENNA WHEELER M.D. Active Last Documented On 4 9:40AM ; [facility] Plan of [...] Liquid 03/29/2023 Provider: GLENNA MARQUEZ M.D. Diagnosis: long term care pharmacist (curre nt) use of opiate analgesic as [...] Date ECHOCARDIOGRAPHY- TRANSTHORAC W/ DOPPLER (Professional Comp.) 91681 Other persistent atrial fibrillation, Essential (primary) hypertension, Mixed hyperlipidemia, Rheumatic disorders of both mitral and tricuspid valves CALOS JONES MD [facility]- 08/25/2023 Last Documented On 4 1:23PM ; [facility] ELECTROCARDIAGRAM READING FEE (EKG) (DISTINCT PROCEDURAL SERVICE DIFFERENT SITE) 31782 Other persistent atrial fibrillation, Essential (primary) hypertension CALOS JONES MD [facility]- 08/25/2023 Last Documented On 4 1:23PM ; [facility] Medical History Includes: Medical [...] Active Last Documented On 4 10:45AM ; [facility] Allergy 12/22/2015 Active Last Documented On 4 10:45AM ; [facility] Encounters Encounter Provider Location Date Check-In Time Check-Out Time Diagnosis ECHOCARDIOGRAM CALOS JONES MD [facility] 4 10:40AM 11:26AM Insurance Includes: Active Insurance Policies Plan Name Member ID Group # Subscriber Relationship Effect shannon Dates 1 - MEDICARE PART A CLAIMS/NGS [id number] MARIANNA Salas 2 - [facility] [employer] [id number] MARIANNA Salas Clinical Notes Includes: Clinical Notes from this encounter No Clinical Notes Recorded
[2024-06-26] MEDS: oxyCODONE/ACETAMINOPHEN (*CRX) 5-325 MG TABLET 1 TABLET PO (06:50)
[2024-06-26 08:17] VITALS: BP 126/83; PULSE 87; RESP 18; TEMP 36.6; O2SAT 98
--- NOTE | 2024-06-26 08:27 | PC.NURSE ---
ENEMA GIVEN WITH MODERATE RESULTS IN BEDSIDE COMMODE PT [facility]
--- NOTE | 2024-06-26 08:28 | PC.NURSE ---
YARELY LYNN NOTIFIED OF PT RETURNING TO [facility] MESSAGE LEFT ON VOICEMAIL
== END 2024-06-26 08:26 ==
PROVIDERS: Emergency Provider Emergency Medicine; PCP Family Medicine
DX: M25.551 Pain in right hip (principal); K56.41 Fecal impaction; I48.91 Unspecified atrial fibrillation; I10 Essential (primary) hypertension; E78.5 Hyperlipidemia, unspecified; Z87.891 Personal history of nicotine dependence; Z79.01 Long term (current) use of anticoagulants; Z86.73 Personal history of transient ischemic attack (TIA), and cerebral infarction without residual deficits; W05.0XXA Fall from non-moving wheelchair, initial encounter
CPT/HCPCS: 70450; 72125; 72128; 72131; 72192; 99284; A9270

== ENCOUNTER 2024-07-10 14:38 | Outpatient (NON) | payer MEDICARE, SELFPAY ==
[2024-07-10 14:47] LABS: Add Urine Microscopic? NO; Appearance Urine Clear (Clear); Bilirubin Urine Negative (Negative); Blood Urine Negative (Negative); Color Urine Yellow (Yellow); Glucose Urine UA Negative (Negative); Ketones Urine Negative (Negative); Leukocyte Esterase Ur Negative LEU/UL (Negative); Nitrate Urine Negative (Negative); Protein Urine Negative (Negative)
--- OUTSIDE RECORDS SUMMARY | 2024-07-10 16:04 | XMS_ITS | Clinical Summary ---
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 Active Last Documented On 02/18/2022 11:15AM ; [facility] Note: Unchanged Spinal Stenosis Lumbosacral 05/20/2021 GLENNA MARQUEZ M.D. Active Last Documented On 2 10:56AM ; [facility] Atrial Fibrillation 03/02/2021 GLENNA MARQUEZ M.D. Active Last Documented On 1 11:51AM ; [facility] Note: Unchanged Hyperlipidemia 08/04/2017 GLENNA MARQUEZ M.D. Active Last Documented On 8 10:00AM ; [facility] Note: Unchanged Esophageal Reflux 05/25/2012 GLENNA June Active Last Documented On 4 9:40AM ; [facility] Hyperlipidemia 08/25/2010 GLENNA MARQUEZ M.D. Inactive Last Documented On 5 10:50AM ; [facility] Essential Hypertension 08/25/2010 GLENNA WHEELER M.D. Active Last Documented On 4 9:40AM ; [facility] Plan of Treatment - Monitor Blood Pressure at home - Last Documented On 05/30/2023 11:25AM ; [facility] - Return to the clinic if condition worsens or new symptoms arise - Last Documented On 05/30/2023 11:25AM ; [facility] - Continue current medication - Last Documented On 05/30/2023 11:25AM ; [facility] - Modify drug dosage Lisinopril to 20 mg 2 x a day - Last Documented On 05/30/2023 11:25AM ; [facility] - Patient to call if problem develops - Last Documented On 05/30/2023 11:25AM ; [facility] Assessments Includes: Assessments from this encounter Findings - I48.91 - Unspecified atrial fibrillation - Last Documented On 05/30/2023 11:25AM ; [facility] - I10 - Essential (primary) hypertension - Last Documented On 05/30/2023 11:25AM ; [facility] - K21.9 - Gastro-esophageal reflux disease without esophagitis - Last Documented On 05/30/2023 11:25AM ; [facility] - K59.03 - Drug induced constipation - Last Documented On 05/30/2023 11:25AM ; [facility] - N18.9 - Chronic kidney disease, unspecified - Last Documented On 05/30/2023 11:25AM ; [facility] - E78.5 - Hyperlipidemia, unspecified - Last Documented On 05/30/2023 11:25AM ; [facility] - M48.07 - Spinal stenosis, lumbosacral region - Last Documented On 05/30/2023 11:25AM ; [facility] Medical Equipment - Implanted Devices Includes: Current Devices No Medical Equipment Recorded Medications Includes: Medications discussed during this encounter and other current Medications Discontinued / Stopped on this date GLENNA MARQUEZ M.D. on 11/17/2022 Movantik 25 MG Oral Tablet Provider: Atul MARQUEZ M.D. Diagnosis: Drug induced con stipation Last Documented On 05/30/2023 11:18AM By SAI MARQUEZ MD ; [facility] New / Renewed during this visit GLENNA MARQUEZ M.D. on 05/30/2023 Lisinopril 20 MG Oral Tablet Provider: GLENNA MARQUEZ M.D. 90 day supply: 180 tablet, 0 refills Diagnosis: Essential (primary) hypertension One tablet twice a day Pharmacy: [address] [phone] - Last Documented On 07/10/2023 2:02PM By SAI MARQUEZ MD ; [facility] Current Medications (continue as prescribed) HYDROcodone-Acetaminophen 7. 5-325 MG Oral Tablet 09/11/2023 Provider: GLENNA MARQUEZ M.D. Diagnosis: Spinal stenosis, lumbosacral region Take one four times a day as needed Last Documented On 09/11/2023 10:36AM By SAI MARQUEZ MD ; [facility] Lisinopril 20 MG Oral Tablet 07/10/2023 Provider: GLENNA MAQRUEZ M.D. Diagnosis: Essential (prima ry) hypertension TAKE 1 TABLET BY MOUTH TWICE DAILY Last Documented On 07/10/2023 3:00PM By SAI MARQUEZ MD ; [facility] Eliquis 5 MG Oral Tablet 07/10/2023 Provider: SAI MARQUEZ M.D. Diagnosis: Unspecified atri al fibrillation One tablet twice a day Last Documented On 07/10/2023 2:28PM By SAI MARQUEZ MD ; [facility] Naloxone HCl 4 MG/0.1ML Nasal Liquid 03/29/2023 Provider: GLENNA MARQUEZ M.D. 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 Diagnosis: Hyperlipidemia, unspecified TAKE 1 TABLET BY MOUTH DAILY Last Documented On 03/29/2023 1:37PM By SAI MARQUEZ MD ; [facility] Suspended Medications MiraLax 17 GM/SCOOP Oral Powder 02/22/2023 Provider: GLENNA MARQUEZ M.D. Diagnosis: as directed 1 to scops q day Last Documented On 02/22/2023 8:51AM By GUERDA Beavers LPN ; [facility] Medications Administered Includes: Administered Medications from [...] Last Documented: On 05/30/2023 11:05A M ; [facility] Results Includes: Results discussed during this encounter CBC WITH DIFF [facility] [place] Ordered by GLENNA Coronel on 05/11/2023 [address] [facility], [place], [address] Collected: 05/26/2023 Report ed: 05/26/2023 11:17 tel: Last Documented On 4 12:04PM ; [facility] Reviewed by GLENNA MARQUEZ M.D. on 05/26/2023; All test results are final unless otherwise noted. ALC 1.2 None Last Documented On 4 11:58AM ; [facility] Note: Responsible Observer: (HRG) ANC 4.3 None Last Documented On 4 11:58AM ; [facility] Note: Responsible Observer: (HRG) BASO# 0.02 th/uL (0.00 - 0.20) None Last Documented On 4 11:58AM ; [facility] Note: Responsible Observer: (HRG) BASO% 0.3 % (0.0 - 2.0) None Last Documented On 4 11:58AM ; [facility] Note: Responsible Observer: (HRG) CBC WITH DIFF See Note None Last Documented On 4 11:58AM ; [facility] Note: CBC (COMPLETE BLOOD COUNT)Responsi ble Observer: (HRG) DIFF (Y/N) NO None Last Documented On 4 11:58AM ; [facility] Note: Responsible Observer: (HRG) EOS# 0.23 th/uL (0.00 - 0.45) None Last Documented On 4 11:58AM ; [facility] Note: Responsible Observer: (HRG) EOS% 3.6 % (0.0 - 9.0) None Last Documented On 4 11:58AM ; [facility] Note: Responsible Observer: (HRG) HCT 38.6 % (40.0 - 54.0) L (Low) Last Documented On 4 11:58AM ; [facility] Note: Responsible Observer: (HRG) HGB 12.9 g/dL (13.5 - 17.5) L (Low) Last Documented On 4 11:58AM ; [facility] Note: Responsible Observer: (HRG) IG# 0.04 th/ul (0.00 - 0.10) None Last Documented On 4 11:58AM ; [facility] Note: Responsible Observer: (HRG) IG% 0.6 % (0.0 - 0.5) H (High) Last Documented On 4 11:58AM ; [facility] Note: Responsible Observer: (HRG) LYMPH# 1.19 th/uL (1.00 - 4.80) None Last Documented On 4 11:58AM ; [facility] Note: Responsible Observer: (HRG) LYMPH% 18.7 % (14.0 - 45.0) None Last Documented On 4 11:58AM ; [facility] Note: Responsible Observer: (HRG) MCH 32.9 pg (25.0 - 35.0) None Last Documented On 4 11:58AM ; [facility] Note: Responsible Observer: (HRG) MCHC 33.4 g/dL (31.0 - 36.0) None Last Documented On 4 11:58AM ; [facility] Note: Responsible Observer: (HRG) MCV 98.5 fl (80.0 - 100) None Last Documented On 4 11:58AM ; [facility] Note: Responsible Observer: (HRG) MONO# 0.64 th/uL (0.00 - 0.80) None Last Documented On 4 11:58AM ; [facility] Note: Responsible Observer: (HRG) MONO% 10.1 % (1.0 - 10.0) H (High) Last Documented On 4 11:58AM ; [facility] Note: Responsible Observer: (HRG) MPV 12.7 fl (6.0 - 11.0) H (High) Last Documented On 4 11:58AM ; [facility] Note: Responsible Observer: (HRG) NEUT# 4.24 th/uL None Last Documented On 4 11:58AM ; [facility] Note: Responsible Observer: (HRG) NEUT% 66.7 % (45.0 - 76.0) None Last Documented On 4 11:58AM ; [facility] Note: Responsible Observer: (HRG) NRBC% 0.0 % (0.0 - 0.0) None Last Documented On 4 11:58AM ; [facility] Note: Responsible Observer: (HRG) PLT 141 th/uL (150 - 400) L (Low) Last Documented On 4 11:58AM ; [facility] Note: Responsible Observer: (HRG) RBC 3.92 mil/uL (4.50 - 5.90) L (Low) Last Documented On 4 11:58AM ; [facility] Note: Responsible Observer: (HRG) RDW 11.7 % (11.0 - 16.0) None Last Documented On 4 11:58AM ; [facility] Note: Responsible Observer: (HRG) WBC 6.4 th/uL (4.5 - 11.0) None Last Documented On 4 11:58AM ; [facility] Note: Responsible Observer: (HRG) BMP [facility] [place] Ordered by GLENNA Coronel on 05/11/2023 [address] [facility], [place], [address] Collected: 05/26/2023 Report ed: 05/26/2023 11:34 tel: Last Documented On 4 12:04PM ; [facility] Reviewed by GLENNA MARQUEZ M.D. on 05/26/2023; All test results are final unless otherwise noted. AGE 78 YEARS None Last Documented On 4 11:58AM ; [facility] Note: Responsible Observer: (APR) ANION GAP 14.3 mmol/L (8.0 - 16.0) None Last Documented On 4 11:58AM ; [facility] Note: eGFR INTERPRETATION AGE AVG GFR [...] None Last Documented On 4 11:58AM ; [facility] Note: BASIC METABOLIC PANELResponsible O bserver: (APR) BUN 24 mg/dL (9 - 20) H (High) Last Documented On 4 11:58AM ; [facility] Note: Responsible Observer: (APR) CALCIUM 9.2 mg/dL (8.9 - 10.0) None Last Documented On 4 11:58AM ; [facility] Note: Responsible Observer: (APR) CHLORIDE 105 mmol/L (98 - 107) None Last Documented On 4 11:58AM ; [facility] Note: Responsible Observer: (APR) CREATININE 1.4 mg/dL (0.8 - 1.5) None Last Documented On 4 11:58AM ; [facility] Note: Responsible Observer: (APR) eGFR. 51 mL/min None Last Documented On 4 11:58AM ; [facility] Note: Responsible Observer: (APR) GLUCOSE 86 mg/dL (70 - 105) None Last Documented On 4 11:58AM ; [facility] Note: Responsible Observer: (APR) POTASSIUM 4.3 mmol/L (3.6 - 5.0) None Last Documented On 4 11:58AM ; [facility] Note: Responsible Observer: (APR) SODIUM 139 mmol/L (137 - 145) None Last Documented On 4 11:58AM ; [facility] Note: Responsible Observer: (APR) TCO2 24.0 mmol/L (22.0 - 30.0) None Last Documented On 4 11:58AM ; [facility] Note: Responsible Observer: (APR) [...] Last Documented On 4 11:01AM ; [facility] DME in home: 06/14/2022 Last Documented On 4 11:01AM ; [facility] DME in home: cane 06/14/2022 Last Documented On 4 11:01AM ; [facility] [PHQ-2] Patient Health Questionnaire 2 i tem total score: 17 (Scale: 0-6) 02/10/2021 Last Documented On 4 11:01AM ; [facility] Difficulty walking 02/10/2021 Last Documented On 4 11:01AM ; [facility] No consumption of alcohol 02/10/2021 Last Documented On 4 11:01AM ; [facility] Not using drugs 02/10/2021 Last Documented On 4 11:01AM ; [facility] Stopped smoking 40 years ago 12/23/2020 Last Documented On 4 11:01AM ; [facility] Current nonsmoker 07/10/2020 Last Documented On 4 11:01AM ; [facility] Former smoker Pt states he quit smoking over 50 yrs ago 07/10/2020 Last Documented On 4 11:01AM ; [facility] Feeling down, depressed, or hopeless in the last 2 weeks? 0 pt Not at all 07/01/2020 Last Documented On 4 11:01AM ; [facility] Lost interest or pleasure in doing thing s was 0 Not at all 07/01/2020 Last Documented On 4 11:01AM ; [facility] Not using alcohol 07/01/2020 Last Documented On 4 11:01AM ; [facility] Non-smoker 11/06/2019 Last Documented On 4 11:01AM ; [facility] No tobacco use prev hx of 50 pack years smoking at young age 0105/08/2019 Last Documented On 4 11:01AM ; [facility] Not using alcohol 11/03/2017 Last Documented On 4 11:01AM ; [facility] Smoking status : Former smoker 8 Last Documented On 4 11:01AM ; [facility] Lives alone 07/23/2012 Last Documented On 4 11:01AM ; [facility] Caffeine use 09/28/2011 Last Documented On 4 11:01AM ; [facility] Single 09/21/2011 Last Documented On 4 11:01AM ; [facility] Retired from work 07/07/2011 Last Documented On 4 11:01AM ; [facility] Abnormal diet TRY TO EAT HARDLY ANY RED MEAT. EAT FISH,VEGETABLES, ETC 08/25/2010 Last Documented On 4 11:01AM ; [facility] Exercise frequency BIKE RIDE 1/2 HR, WAL K 1/2 HR, WEIGHTS 1/2 HR 08/25/2010 Last Documented On 4 11:01AM ; [facility] Occupation [employer] 200608/25/2010 Last Documented On 4 11:01AM ; [facility] Procedures and Surgical History Includes: Procedures from this encounter Procedures Code Diagnosis Performing Provider Service L ocation Service Date use of tobacco assessment performed 1000F Last Documented On 4 11:06AM ; [facility] review of medications documented 1160F Last Documented On 4 11:06AM ; [facility] Surgical History Last Updated No Pacemaker 02/10/2021 Last Documented On 4 11:01AM ; [facility] History of prostate surgery 09/2009 Last Documented On 4 11:01AM ; [facility] Medical History Includes: Medical History addressed during this encounter Description Last Updated Vaccine history 05/30/2023 Last Documented On 4 11:25AM ; [facility] Diastolic blood pressure 85 mmHg 023 Last Documented On 4 11:01AM ; [facility] Systolic blood pressure 150 mmHg 023 Last Documented On 4 11:01AM ; [facility] No diagnosis of history of chronic obstr uctive pulmonary disease 12/09/2022 Last Documented On 4 11:01AM ; [facility] No diagnosis of history of diabetes fozia itus 12/09/2022 Last Documented On 4 11:01AM ; [facility] No history of Congestive Heart Failure 0 12/09/2022 Last Documented On 4 11:01AM ; [facility] Surgery prostate and bladder surgery 04/2022 Last Documented On 4 11:01AM ; [facility] Please list all illnesses/co nditions you have been diagnosed with: Cancer. Prostate and Bladder 02/10/2021 Last Documented On 4 11:01AM ; [facility] Back brace 02/10/2021 Last Documented On 4 11:01AM ; [facility] Currently wearing eyeglasses 02/10/2021 Last Documented On 4 11:01AM ; [facility] No Pain Pump 02/10/2021 Last Documented On 4 11:01AM ; [facility] No Spinal cord stimulator 02/10/2021 Last Documented On 4 11:01AM ; [facility] Please list all surgeries: Prostrate marilu e 2009. bladder. dec 2013 02/10/2021 Last Documented On 4 11:01AM ; [facility] Severe Pain 02/10/2021 Last Documented On 4 11:01AM ; [facility] Uses a cane for support 02/10/2021 Last Documented On 4 11:01AM ; [facility] No Contact with and (Suspected) exposure to COVID-19 07/01/2020 Last Documented On 4 11:01AM ; [facility] No fall 07/01/2020 Last Documented On 4 11:01AM ; [facility] Not using Opioids 07/01/2020 Last Documented On 4 11:01AM ; [facility] Denies a fear of falling. 05/08/2019 Last Documented On 4 11:01AM ; [facility] Has had no fall in the last 12 months. 0 05/08/2019 Last Documented On 4 11:01AM ; [facility] Medication compliance 07/23/2012 Last Documented On 4 11:01AM ; [facility] Taking medication 09/28/2011 Last Documented On 4 11:01AM ; [facility] Prostate Ca, SP Prostatectomy ~ Urology Dr Charlton 07/07/2011 Last Documented On 4 11:01AM ; [facility] History of essential hypertension 2011 Last Documented On 4 11:01AM ; [facility] History of hyperlipidemia 07/07/2011 Last Documented On 4 11:01AM ; [facility] History of hypertension 08/25/2010 Last Documented On 4 11:01AM ; [facility] Family History Includes: Family History addressed during this encounter Description Last Updated Family history of Cancer Breast Cancer 0 12/09/2022 Last Documented On 4 11:01AM ; [facility] Not using Opioids 12/09/2022 Last Documented On 4 11:01AM ; [facility] Fraternal history of family history of i schemic heart disease 02/10/2021 Last Documented On 4 11:01AM ; [facility] Fraternal history of coronary artery dis ease 08/04/2017 Last Documented On 4 11:01AM ; [facility] Family history reviewed - unchanged sin e last visit 11/06/2015 Last Documented On 4 11:01AM ; [facility] Fraternal history of cancer 04/29/2015 Last Documented On 4 11:01AM ; [facility] Fraternal history of heart disease 04/29 Last Documented On 4 11:01AM ; [facility] Maternal history of cancer 04/29/2015 Last Documented On 4 11:01AM ; [facility] Family history of cancer 07/07/2011 Last Documented On 4 11:01AM ; [facility] Family history of coronary artery diseas e 07/07/2011 Last Documented On 4 11:01AM ; [facility] Brother 69 years old [place] [facility] [place] 8 YEARS AGO 08/25/2010 Last Documented On 4 11:01AM ; [facility] Father 1985 AT AGE 74- PUMA GEHRIG'S TYPE DISEASE 08/25/2010 Last Documented On 4 11:01AM ; [facility] Heart disease 08/25/2010 Last Documented On 4 11:01AM ; [facility] Mother 1995 AT AGE 72- BREAST CANCER 08/25/2010 Last Documented On 4 11:01AM ; [facility] Review of Systems Includes: Review of [...] Active Last Documented On 4 10:45AM ; [facility] Allergy 12/22/2015 Active Last Documented On 4 10:45AM ; [facility] Encounters Encounter Provider Location Date Check-In Time Check-Out Time Diagnosis CHECK UP GLENNA MARQUEZ M.D. [facility] 05/30/19 24 10:57AM 11:15AM Essential Hypertension, Esophageal Reflux,Hyperl ipidemia,Atri al Fibrillation, Spinal Stenosis Lumbosacral,C onstipation Drug-induced, Chronic Renal Failure Insurance Includes: Active Insurance Policies Plan Name Member ID Group # Subscriber Relationship Effect shannon Dates 1 - MEDICARE PART A CLAIMS/NGS [id number] [facility] [employer] [facility] 2 - [facility] [employer] [id number] [facility] [employer] [facility] Clinical Notes Includes: Clinical Notes from this encounter * Progress note Date Encounter Last Documented by 05/30/2023 CHECK UP Last documented on 05/30/2023; 11:25 AM, GLENNA MARQUEZ M.D.; [facility] Active Problems & Conditions [...] Work: Retired from work and occupation [employer] 2006. Marital: Single. Functional: Feeling down, depressed, [...]
--- OUTSIDE RECORDS SUMMARY | 2024-07-10 16:05 | XMS_ITS ---
Care Plan - [facility] Created on: July 10, 2024 DRAKE MARIANNA Rivero : 1945 Sex: Male Author Organization [facility] Address [address] [place] [address] Phone Care Team Providers Care Agricultural Commodities Inspector Name Role Phone JIMMY PRICE, SAI Primary Care Provider [phone] JIMMY Andrews, GLENNA Macias Unavailable [phone]
--- OUTSIDE RECORDS SUMMARY | 2024-07-10 16:05 | XMS_ITS | Clinical Summary ---
Author Organization [facility] Address [address] [place] [address] Phone Care Team Providers Care Casting Molder Name Role Phone JIMMY PRICE, SAI Primary Care Provider [phone] JIMMY Andrews, GLENNA Macias Unavailable [phone] Reason for Visit and Chief Complaint ECHOCARDIOGRAM Problems Includes: Problems addressed during this encounter and other active Problems All Visits Onset Date Resolved Date Provider Condition S tatus Chronic Renal Failure 06/14/2022 MEGAN MARQUEZ M.D. Active Last Documented On 06/14/2022 11:26AM ; [facility] Note: Unchanged Constipation Drug-induced 02/18/2022 GLENNA MARQUEZ M.D. Active Last Documented On 02/18/2022 11:15AM ; [facility] Note: Unchanged Spinal Stenosis Lumbosacral 05/20/2021 GLENNA MARQUEZ M.D. Active Last Documented On 2 10:56AM ; [facility] Atrial Fibrillation 03/02/2021 GLENNA MARQUEZ M.D. Active Last Documented On 1 11:51AM ; [facility] Note: Unchanged Hyperlipidemia 08/04/2017 GLENNA MARQUEZ M.D. Active Last Documented On 8 10:00AM ; [facility] Note: Unchanged Esophageal Reflux 05/25/2012 GLENNA June Active Last Documented On 4 9:40AM ; [facility] Essential Hypertension 08/25/2010 GLENNA WHEELER M.D. Active Last Documented On 4 9:40AM ; [facility] Plan of [...] 09/11/2023 10:36AM By SAI MARQUEZ MD ; [facility] Lisinopril 20 MG Oral Tablet 07/10/2023 Provider: GLENNA MARQUEZ M.D. Diagnosis: Essential (prima ry) hypertension TAKE 1 TABLET BY MOUTH TWICE DAILY Last Documented On 07/10/2023 3:00PM By SAI MARQUEZ MD ; [facility] Eliquis 5 MG Oral Tablet 07/10/2023 Provider: SAI MARQUEZ M.D. Diagnosis: Unspecified atri al fibrillation One tablet twice a day Last Documented On 07/10/2023 2:28PM By SAI MARQUEZ MD ; [facility] Naloxone HCl 4 MG/0.1ML Nasal Liquid 03/29/2023 Provider: GLENNA MARQUEZ M.D. Diagnosis: [facility] (curre nt) use of opiate analgesic as directed 4 mg nasally as needed Last Documented On 03/29/2023 11:32AM By SAI MARQUEZ MD ; [facility] Pravastatin Sodium 20 MG Oral Tablet 03/29/2023 Provider: GLENNA MARQUEZ M.D. Diagnosis: Hyperlipidemia, unspecified TAKE 1 TABLET BY MOUTH DAILY Last Documented On 03/29/2023 1:37PM By SAI MARQUEZ MD ; [facility] Suspended Medications MiraLax 17 GM/SCOOP Oral Powder 02/22/2023 Provider: GLENNA MARQUEZ M.D. Diagnosis: as directed 1 to scops q day Last Documented On 02/22/2023 8:51AM By GUERDA Beavers LPN ; [facility] Medications Administered Includes: Administered [...] Date ECHOCARDIOGRAPHY- TRANSTHORAC W/ DOPPLER (Professional Comp.) 98677 Other persistent atrial fibrillation, Essential (primary) hypertension, Mixed hyperlipidemia, Rheumatic disorders of both mitral and tricuspid valves CALOS JONES MD [facility]- 08/25/2023 Last Documented On 4 1:23PM ; [facility] ELECTROCARDIAGRAM READING FEE (EKG) (DISTINCT PROCEDURAL SERVICE DIFFERENT SITE) [id number] Other persistent atrial fibrillation, Essential (primary) hypertension CALOS JONES MD [facility]- 08/25/2023 Last Documented On 4 1:23PM ; [facility] Medical History Includes: Medical History [...] Active Last Documented On 4 10:45AM ; [facility] Allergy 12/22/2015 Active Last Documented On 4 10:45AM ; [facility] Encounters Encounter Provider Location Date Check-In Time Check-Out Time Diagnosis ECHOCARDIOGRAM CALOS JONES MD [facility] 4 10:40AM 11:26AM Insurance Includes: Active Insurance Policies Plan Name Member ID Group # Subscriber Relationship Effect shannon Dates 1 - MEDICARE PART A CLAIMS/NGS [id number] MARIANNA Salas 2 - [facility] OPTIONS [id number] MARIANNA Salas Clinical Notes Includes: Clinical Notes from this encounter No Clinical Notes Recorded
--- OUTSIDE RECORDS SUMMARY | 2024-07-10 16:05 | XMS_ITS | Clinical Summary ---
Author Organization [facility] Address [address] [place] [address] Phone Care Team Providers Care Air Conditioning Coil Assembler Name Role Phone JIMMY PRICE, SAI Primary Care Provider [phone] JIMMY Andrews, GLENNA Macias Unavailable [phone] Reason for Visit and Chief Complaint HEART [...] 11:51AM ; [facility] Note: Unchanged Hyperlipidemia 08/04/2017 GLENNA MARQUEZ M.D. Active Last Documented On 8 10:00AM ; [facility] Note: Unchanged Esophageal Reflux 05/25/2012 GLENNA June Active Last Documented On 4 9:40AM ; [facility] Essential Hypertension 08/25/2010 GLENNA WHEELER M.D. Active Last Documented On 4 9:40AM ; [facility] Plan of [...] 07/10/2023 3:00PM By SAI MARQUEZ MD ; [facility] Eliquis 5 MG Oral Tablet 07/10/2023 Provider: SAI MARQUEZ M.D. Diagnosis: Unspecified atri al fibrillation One tablet twice a day Last Documented On 07/10/2023 2:28PM By SAI MARQUEZ MD ; [facility] Naloxone HCl 4 MG/0.1ML Nasal Liquid 03/29/2023 Provider: GLENNA MARQUEZ M.D. 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 as [...] 10:45AM ; [facility] Allergy 12/22/2015 Active Last Documented On 4 10:45AM ; [facility] Encounters Encounter Provider Location Date Check-In Time Check- Out Time Diagnosis [facility] CHECK UP CALOS JONES MD [facility] 4 11:30AM 11:53AM Insurance Includes: Active Insurance Policies Plan Name Member ID Group # Subscriber Relationship Effect shannon Dates 1 - MEDICARE PART A CLAIMS/NGS [id number] MARIANNA Salas 2 - [facility] [employer] C[employer] OPTIONS [id number] MARIANNA Salas Clinical Notes Includes: Clinical Notes from this encounter No Clinical Notes Recorded
--- OUTSIDE RECORDS SUMMARY | 2024-07-10 16:05 | XMS_ITS | Clinical Summary ---
Author Organization [facility] Address [address] [place] [address] Phone Care Team Providers Care Trimming Machine Set Up Operator Name Role Phone JIMMY PRICE, SAI Primary Care Provider [phone] JIMMY Andrews, GLENNA Macias Unavailable [phone] Reason for Visit and Chief Complaint visit [...] Active Last Documented On 06/14/2022 11:26AM ; [facility] Note: Unchanged Constipation Drug-induced 02/18/2022 GLENNA MARQUEZ M.D. Active Last Documented On 02/18/2022 11:15AM ; [facility] Note: Unchanged Spinal Stenosis Lumbosacral 05/20/2021 GLENNA MARQUEZ M.D. Active Last Documented On 2 10:56AM ; [facility] Atrial Fibrillation 03/02/2021 GLENNA MARQUEZ M.D. Active Last Documented On 1 11:51AM ; [facility] Note: Unchanged Hyperlipidemia 08/04/2017 GLENNA MARQUEZ M.D. Active Last Documented On 8 10:00AM ; [facility] Note: Unchanged Esophageal Reflux 05/25/2012 GLENNA June Active Last Documented On 4 9:40AM ; [facility] Hyperlipidemia 08/25/2010 GLENNA MARQUEZ M.D. Inactive Last Documented On 5 10:50AM ; [facility] Essential Hypertension 08/25/2010 GLENNA Vieira.DJun Active Last Documented On 4 9:40AM ; [facility] Plan of Treatment - Return to the clinic if condition worsens or new symptoms arise - Last Documented On 08/28/2023 11:24AM ; [facility] - Continue current medication - Last Documented On 08/28/2023 11:24AM ; [facility] - Patient to call if problem develops - Last Documented On 08/28/2023 11:24AM ; [facility] Education and Decision Aids were provided during visit for: Education and counseling Adv ice to have regular exercise regimen Last Documented On 11:19AM ; [facility] Assessments Includes: Assessments from this encounter Findings - I48.91 - Unspecified atrial fibrillation - Last Documented On 08/28/2023 11:24AM ; [facility] - I10 - Essential (primary) hypertension - Last Documented On 08/28/2023 11:24AM ; [facility] - K21.9 - Gastro-esophageal reflux disease without esophagitis - Last Documented On 08/28/2023 11:24AM ; [facility] - K59.03 - Drug induced constipation - Last Documented On 08/28/2023 11:24AM ; [facility] - N18.9 - Chronic kidney disease, unspecified - Last Documented On 08/28/2023 11:24AM ; [facility] - E78.5 - Hyperlipidemia, unspecified - Last Documented On 08/28/2023 11:24AM ; [facility] - M48.07 - Spinal stenosis, lumbosacral region - Last Documented On 08/28/2023 11:24AM ; [facility] Instructions Includes: Instructions from this encounter Education and Decision Aids were provided during visit for: Education and counseling Adv ice to have regular exercise regimen Last Documented On 11:19AM ; [facility] Medical Equipment - Implanted Devices Includes: Current Devices No Medical Equipment Recorded Medications Includes: Medications discussed during this encounter and other current Medications Discontinued / Stopped on this date GLENNA MARQUEZ M.D. on 12/20/2022 Lisinopril 10 MG Oral Tablet Provider: GLENNA MARQUEZ M.D. Diagnosis: Essential (prima ry) hypertension Last Documented On 08/28/2023 11:06AM By SAI MARQUEZ MD ; [facility] Current Medications (continue as prescribed) HYDROcodone-Acetaminophen 7. 5-325 MG Oral Tablet 09/11/2023 Provider: GLENNA MARQUEZ M.D. Diagnosis: Spinal stenosis, lumbosacral region Take one four times a day as needed Last Documented On 09/11/2023 10:36AM By SAI MARQUEZ MD ; [facility] Lisinopril 20 MG Oral Tablet 07/10/2023 Provider: GLENNA MARQUEZ M.D. Diagnosis: Essential (prima ry) hypertension TAKE 1 TABLET BY MOUTH TWICE DAILY Last Documented On 07/10/2023 3:00PM By SAI MARQUEZ MD ; [facility] Eliquis 5 MG Oral Tablet 07/10/2023 Provider: SAI MARQUEZ M.D. Diagnosis: Unspecified atri al fibrillation One tablet twice a day Last Documented On 07/10/2023 2:28PM By SAI MARQUEZ MD ; [facility] Naloxone HCl 4 MG/0.1ML Nasal Liquid 03/29/2023 Provider: GLENNA MARQUEZ M.D. Diagnosis: retirement (curre nt) use of opiate analgesic as directed 4 mg nasally as needed Last Documented On 03/29/2023 11:32AM By SAI MARQUEZ MD ; [facility] Pravastatin Sodium 20 MG Oral Tablet 03/29/2023 Provider: GLENNA MARQUEZ M.D. Diagnosis: Hyperlipidemia, unspecified TAKE 1 TABLET BY MOUTH DAILY Last Documented On 03/29/2023 1:37PM By SAI MARQUEZ MD ; [facility] Suspended Medications MiraLax 17 GM/SCOOP Oral Powder 02/22/2023 Provider: GLENNA MARQUEZ M.D. Diagnosis: as directed 1 to scops q day Last Documented On 02/22/2023 8:51AM By GUERDA Beavers LPN ; [facility] Medications Administered Includes: Administered [...] Last Documented: On 08/28/2023 10:50A M ; [facility] Results Includes: Results discussed [...] 12/09/2022 Last Documented On 4 10:45AM ; [facility] DME in home: 06/14/2022 Last Documented On 4 10:45AM ; [facility] DME in home: cane 06/14/2022 Last Documented On 4 10:45AM ; [facility] [PHQ-2] Patient Health Questionnaire 2 i tem total score: 17 (Scale: 0-6) 02/10/2021 Last Documented On 4 10:45AM ; [facility] Difficulty walking 02/10/2021 Last Documented On 4 10:45AM ; [facility] No consumption of alcohol 02/10/2021 Last Documented On 4 10:45AM ; [facility] Not using drugs 02/10/2021 Last Documented On 4 10:45AM ; [facility] Stopped smoking 40 years ago 12/23/2020 Last Documented On 4 10:45AM ; [facility] Current nonsmoker 07/10/2020 Last Documented On 4 10:45AM ; [facility] Former smoker Pt states he quit smoking over 50 yrs ago 07/10/2020 Last Documented On 4 10:45AM ; [facility] Feeling down, depressed, or hopeless in the last 2 weeks? 0 pt Not at all 07/01/2020 Last Documented On 4 10:45AM ; [facility] Lost interest or pleasure in doing thing s was 0 Not at all 07/01/2020 Last Documented On 4 10:45AM ; [facility] Not using alcohol 07/01/2020 Last Documented On 4 10:45AM ; [facility] Non-smoker 11/06/2019 Last Documented On 4 10:45AM ; [facility] No tobacco use prev hx of 50 pack years smoking at young age 0105/08/2019 Last Documented On 4 10:45AM ; [facility] Not using alcohol 11/03/2017 Last Documented On 4 10:45AM ; [facility] Smoking status : Former smoker 8 Last Documented On 4 10:45AM ; [facility] Lives alone 07/23/2012 Last Documented On 4 10:45AM ; [facility] Caffeine use 09/28/2011 Last Documented On 4 10:45AM ; [facility] Single 09/21/2011 Last Documented On 4 10:45AM ; [facility] Retired from work 07/07/2011 Last Documented On 4 10:45AM ; [facility] Abnormal diet TRY TO EAT HARDLY ANY RED MEAT. 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 Last Documented On 4 10:45AM ; [facility] Procedures and Surgical History Includes: Procedures from this encounter Procedures Code Diagnosis Performing Provider Service L ocation Service Date use of tobacco assessment performed 1000F Last Documented On 4 10:50AM ; [facility] review of medications documented 1160F Last Documented On 4 10:50AM ; [facility] Surgical History Last Updated No Pacemaker 02/10/2021 Last Documented On 4 10:45AM ; [facility] History of prostate surgery 09/2009 Last Documented On 4 10:45AM ; [facility] Medical History Includes: Medical History addressed during this encounter Description Last Updated Vaccine history 05/30/2023 Last Documented On 4 10:45AM ; [facility] No diagnosis of history of chronic obstr uctive pulmonary disease 12/09/2022 Last Documented On 4 10:45AM ; [facility] No diagnosis of history of diabetes fozia itus 12/09/2022 Last Documented On 4 10:45AM ; [facility] No history of Congestive Heart Failure 0 12/09/2022 Last Documented On 4 10:45AM ; [facility] Surgery prostate and bladder surgery 04/2022 Last Documented On 4 10:45AM ; [facility] Please list all illnesses/co nditions you have been diagnosed with: Cancer. Prostate and Bladder 02/10/2021 Last Documented On 4 10:45AM ; [facility] Back brace 02/10/2021 Last Documented On 4 10:45AM ; [facility] Currently wearing eyeglasses 02/10/2021 Last Documented On 4 10:45AM ; [facility] No Pain Pump 02/10/2021 Last Documented On 4 10:45AM ; [facility] No Spinal cord stimulator 02/10/2021 Last Documented On 4 10:45AM ; [facility] Please list all surgeries: Prostrate marilu e 2009. bladder. sept 201302/10/2021 Last Documented On 4 10:45AM ; [facility] Severe Pain 02/10/2021 Last Documented On 4 10:45AM ; [facility] Uses a cane for support 02/10/2021 Last Documented On 4 10:45AM ; [facility] No Contact with and (Suspected) exposure to COVID-19 07/01/2020 Last Documented On 4 10:45AM ; [facility] No fall 07/01/2020 Last Documented On 4 10:45AM ; [facility] Not using Opioids 07/01/2020 Last Documented On 4 10:45AM ; [facility] Denies a fear of falling. 05/08/2019 Last Documented On 4 10:45AM ; [facility] Has had no fall in the last 12 months. 0 05/08/2019 Last Documented On 4 10:45AM ; [facility] Medication compliance 07/23/2012 Last Documented On 4 10:45AM ; [facility] Taking medication 09/28/2011 Last Documented On 4 10:45AM ; [facility] Prostate Ca, SP Prostatectomy ~ Urology Dr Charlton 07/07/2011 Last Documented On 4 10:45AM ; [facility] History of essential hypertension 2011 Last Documented On 4 10:45AM ; [facility] History of hyperlipidemia 07/07/2011 Last Documented On 4 10:45AM ; [facility] History of hypertension 08/25/2010 Last Documented On 4 10:45AM ; [facility] Family History Includes: Family History addressed during this encounter Description Last Updated Family history of Cancer Breast Cancer 0 12/09/2022 Last Documented On 4 10:45AM ; [facility] Not using Opioids 12/09/2022 Last Documented On 4 10:45AM ; [facility] Fraternal history of family history of i schemic heart disease 02/10/2021 Last Documented On 4 10:45AM ; [facility] Fraternal history of coronary artery dis ease 08/04/2017 Last Documented On 4 10:45AM ; [facility] Family history reviewed - unchanged [facility] e last visit 11/06/2015 Last Documented On 4 10:45AM ; [facility] Fraternal history of cancer 04/29/2015 Last Documented On 4 10:45AM ; [facility] Fraternal history of heart disease 04/29 Last Documented On 4 10:45AM ; [facility] Maternal history of cancer 04/29/2015 Last Documented On 4 10:45AM ; [facility] Family history of cancer 07/07/2011 Last Documented On 4 10:45AM ; [facility] Family history of coronary artery diseas e 07/07/2011 Last Documented On 4 10:45AM ; [facility] Brother 69 years old [facility] [place] 8 YEARS AGO 08/25/2010 Last Documented On 4 10:45AM ; [facility] Father 1985 AT AGE 74- PUMA GEHRIG'S TYPE DISEASE 08/25/2010 Last Documented On 4 10:45AM ; [facility] Heart disease 08/25/2010 Last Documented On 4 10:45AM ; [facility] Mother 1995 AT AGE 72- BREAST CANCER 08/25/2010 Last Documented On 4 10:45AM ; [facility] Review of Systems Includes: Review of [...] Active Last Documented On 4 10:45AM ; [facility] Allergy 12/22/2015 Active Last Documented On 4 10:45AM ; [facility] Encounters Encounter Provider Location Date Check-In Time Check-Out Time Diagnosis CHECK UP GLENNA MARQUEZ M.D. [facility] 08/28/19 24 10:42AM 11:19AM Essential Hypertension, Esophageal Reflux,Hyperl ipidemia,Atri al Fibrillation, Spinal Stenosis Lumbosacral,C onstipation Drug-induced, Chronic Renal Failure Insurance Includes: Active Insurance Policies Plan Name Member ID Group # Subscriber Relationship Effect shannon Dates 1 - MEDICARE PART A CLAIMS/NGS [id number] MARIANNA JUAN Self 2 - [facility] OPTIONS [id number] MARIANNA JUAN Self Clinical Notes Includes: Clinical Notes from this encounter * Progress note Date Encounter Last Documented by 08/28/2023 CHECK UP Last documented on 08/28/2023; 11:24 AM, GLENNA MARQUEZ M.D.; [facility] Active Problems & Conditions [...]
--- OUTSIDE RECORDS SUMMARY | 2024-07-10 16:05 | XMS_ITS | Clinical Summary ---
Author Organization [facility] Address [address] [place] [address] Phone Care Team Providers Care Wick Tender Name Role Phone IJMMY PRICE, SAI Primary Care Provider [phone] JIMMY Andrews, GLENNA Macias Unavailable [phone] Reason for Visit and Chief Complaint CAROTID ULTRASOUND Problems Includes: Problems addressed during this encounter and other active Problems All Visits Onset Date Resolved Date Provider Condition S tatus Chronic Renal Failure 06/14/2022 MEGAN MARQUEZ M.D. Active Last Documented On 06/14/2022 11:26AM ; [facility] Note: Unchanged Constipation Drug-induced 02/18/2022 GLENNA MARQUEZ M.D. Active Last Documented On 02/18/2022 11:15AM ; [facility] Note: Unchanged Spinal Stenosis Lumbosacral 05/20/2021 GLENNA MARQUEZ M.D. Active Last Documented On 2 10:56AM ; [facility] Atrial Fibrillation 03/02/2021 GLENNA MARQUEZ M.D. Active Last Documented On 1 11:51AM ; [facility] Note: Unchanged Hyperlipidemia 08/04/2017 GLENNA MARQUEZ M.D. Active Last Documented On 8 10:00AM ; [facility] Note: Unchanged Esophageal Reflux 05/25/2012 GLENNA June Active Last Documented On 4 9:40AM ; [facility] Essential Hypertension 08/25/2010 GLENNA WHEELER M.D. Active Last Documented On 4 9:40AM ; [facility] Plan of Treatment No Plan of Treatment [...] 09/11/2023 10:36AM By SAI MARQUEZ MD ; [facility] Lisinopril 20 MG Oral Tablet 07/10/2023 Provider: GLENNA MARQUEZ M.D. Diagnosis: Essential (prima ry) hypertension TAKE 1 TABLET BY MOUTH TWICE DAILY Last Documented On 07/10/2023 3:00PM By SAI MARQUEZ MD ; [facility] Eliquis 5 MG Oral Tablet 07/10/2023 Provider: SAI MARQUEZ M.D. Diagnosis: Unspecified atri al fibrillation One tablet twice a day Last Documented On 07/10/2023 2:28PM By SAI MARQUEZ MD ; [facility] Naloxone HCl 4 MG/0.1ML Nasal Liquid 03/29/2023 Provider: GLENNA MARQUEZ M.D. Diagnosis: custodial (curre nt) use of opiate analgesic as directed 4 mg nasally as needed Last Documented On 03/29/2023 11:32AM By SAI MARQUEZ MD ; [facility] Pravastatin Sodium 20 MG Oral Tablet 03/29/2023 Provider: GLENNA MARQUEZ M.D. Diagnosis: Hyperlipidemia, unspecified TAKE 1 TABLET BY MOUTH DAILY Last Documented On 03/29/2023 1:37PM By SAI MARQUEZ MD ; [facility] Suspended Medications MiraLax 17 GM/SCOOP Oral Powder 02/22/2023 Provider: GLENNA MARQUEZ M.D. Diagnosis: as directed 1 to scops q day Last Documented On 02/22/2023 8:51AM By GUERDA Beavers LPN ; [facility] Medications Administered Includes: Administered Medications [...] OF EXTRACRANIAL ARTERIES; COMP BRAXTON (Professional Comp.) 43572 Occlusion and stenosis of bilateral carotid arteries ANNAMARIA JONES MD [facility] 09/18/2023 Last Documented On 4 10:18AM ; [facility] Medical History Includes: Medical History addressed during [...] Active Last Documented On 4 10:45AM ; [facility] Allergy 12/22/2015 Active Last Documented On 4 10:45AM ; [facility] Encounters Encounter Provider Location Date Check-In Time Check-Out Time Diagnosis CAROTID ULTRASOUND ANNAMARIA JONES MD [facility] 09/18/19 24 10:41AM 11:28AM Insurance Includes: Active Insurance Policies Plan Name Member ID Group # Subscriber Relationship Effect shannon Dates 1 - MEDICARE PART A CLAIMS/NGS [id number] MARIANNA Salas 2 - [facility] OPTIONS [id number] MARIANNA Salas Clinical Notes Includes: Clinical Notes from this encounter No Clinical Notes Recorded
== END 2024-07-10 14:39 | disposition home or self-care (01) ==
LOC: CHSLAB 14:39
PROVIDERS: PCP Family Medicine; Visit Provider Family Medicine
DX: N17.9 Acute kidney failure, unspecified (principal)
CPT/HCPCS: 81003

== ENCOUNTER 2024-07-17 08:39 | Outpatient (CLI) | payer MEDICARE, SELFPAY ==
[2024-07-17 08:59] LABS: Hematocrit 34.5 % (37.0-46.0); Hemoglobin 11.5 g/dL (12.4-15.3); Mean Corpuscular HGB Conc 33.3 g/dL (32-36); Mean Corpuscular Volume 96.1 fL (78.0-102.0); Mean Platelet Volume 10.5 fl (8.7-11.0); Platelet Count Result 189 K/mm3 (150-420); Red Blood Count 3.59 M/mm3 (4.70-6.10)
--- OUTSIDE RECORDS SUMMARY | 2024-07-17 09:08 | XMS_ITS | Clinical Summary ---
Author Organization [facility] Address [address] [place] [address] Phone Care Team Providers Care Helminthologist Name Role Phone JIMMY PRICE, SAI Primary Care Provider [phone] JIMMY Andrews, GLENNA Macias Unavailable [phone] Reason for Visit and Chief Complaint visit [...] Active Last Documented On 06/14/2022 11:26AM ; [facility] Note: Unchanged Constipation Drug-induced 02/18/2022 GLENNA MARQUEZ M.D. Active Last Documented On 02/18/2022 11:15AM ; [facility] Note: Unchanged Spinal Stenosis Lumbosacral 05/20/2021 GLENNA MARQUEZ M.D. Active Last Documented On 2 10:56AM ; [facility] Atrial Fibrillation 03/02/2021 GLENNA MARQUEZ M.D. Active Last Documented On 1 11:51AM ; [facility] Note: Unchanged Hyperlipidemia 08/04/2017 GLENNA MARQUEZ M.D. Active Last Documented On 8 10:00AM ; [facility] Note: Unchanged Esophageal Reflux 05/25/2012 GLENNA June Active Last Documented On 4 9:40AM ; [facility] Hyperlipidemia 08/25/2010 GLENNA MARQUEZ M.D. Inactive Last Documented On 5 10:50AM ; [facility] Essential Hypertension 08/25/2010 GLENNA WHEELER M.D. Active Last Documented On 4 9:40AM ; [facility] Plan of Treatment - Monitor Blood Pressure at home - Last Documented On 05/30/2023 11:25AM ; [facility] - Return to the clinic if condition worsens or new symptoms arise - Last Documented On 05/30/2023 11:25AM ; [facility] - Continue current medication - Last Documented On 05/30/2023 11:25AM ; [facility] - Modify drug dosage Lisinopril to 20 mg 2 x a day - Last Documented On 05/30/2023 11:25AM ; [facility] - Patient to call if problem develops - Last Documented On 05/30/2023 11:25AM ; [facility] Assessments Includes: Assessments from this encounter Findings - I48.91 - Unspecified atrial fibrillation - Last Documented On 05/30/2023 11:25AM ; [facility] - I10 - Essential (primary) hypertension - Last Documented On 05/30/2023 11:25AM ; [facility] - K21.9 - Gastro-esophageal reflux disease without esophagitis - Last Documented On 05/30/2023 11:25AM ; [facility] - K59.03 - Drug induced constipation - Last Documented On 05/30/2023 11:25AM ; [facility] - N18.9 - Chronic kidney disease, unspecified - Last Documented On 05/30/2023 11:25AM ; [facility] - E78.5 - Hyperlipidemia, unspecified - Last Documented On 05/30/2023 11:25AM ; [facility] - M48.07 - Spinal stenosis, lumbosacral region - Last Documented On 05/30/2023 11:25AM ; [facility] Medical Equipment - Implanted Devices Includes: Current Devices No Medical Equipment Recorded Medications Includes: Medications discussed during this encounter and other current Medications Discontinued / Stopped on this date GLENNA MARQUEZ M.D. on 11/17/2022 Movantik 25 MG Oral Tablet Provider: Atul MARQUEZ M.D. Diagnosis: Drug induced con stipation Last Documented On 05/30/2023 11:18AM By SAI MARQUEZ MD ; [facility] New / Renewed during this visit GLENNA MARQUEZ M.D. on 05/30/2023 Lisinopril 20 MG Oral Tablet Provider: GLENNA MARQUEZ M.D. 90 day supply: 180 tablet, 0 refills Diagnosis: Essential (primary) hypertension One tablet twice a day Pharmacy: [address] [id number] - Last Documented On 07/10/2023 2:02PM By SAI MARQUEZ MD ; [facility] Current Medications (continue as prescribed) HYDROcodone-Acetaminophen 7. 5-325 MG Oral Tablet 09/11/2023 Provider: GLENNA MARQUEZ M.D. Diagnosis: Spinal stenosis, lumbosacral region Take one four times a day as needed Last Documented On 09/11/2023 10:36AM By SAI MARQUEZ MD ; [facility] Lisinopril 20 MG Oral Tablet 07/10/2023 Provider: GLENNA MARQUEZ M.D. Diagnosis: Essential (prima ry) hypertension TAKE 1 TABLET BY MOUTH TWICE DAILY Last Documented On 07/10/2023 3:00PM By SAI MARQUEZ MD ; [facility] Eliquis 5 MG Oral Tablet 07/10/2023 Provider: SAI MARQUEZ M.D. Diagnosis: Unspecified atri al fibrillation One tablet twice a day Last Documented On 07/10/2023 2:28PM By SAI MARQUEZ MD ; [facility] Naloxone HCl 4 MG/0.1ML Nasal Liquid 03/29/2023 Provider: GLENNA MARQUEZ M.D. 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 Diagnosis: Hyperlipidemia, unspecified TAKE 1 TABLET BY MOUTH DAILY Last Documented On 03/29/2023 1:37PM By SAI MARQUEZ MD ; [facility] Suspended Medications MiraLax 17 GM/SCOOP Oral Powder 02/22/2023 Provider: GLENNA MARQUEZ M.D. Diagnosis: as directed 1 to scops q day Last Documented On 02/22/2023 8:51AM By GUERDA Beavers LPN ; [facility] Medications Administered Includes: Administered Medications from [...] Last Documented: On 05/30/2023 11:05A M ; [facility] Results Includes: Results discussed during this encounter CBC WITH DIFF [facility] [place] Ordered by GLENNA Coronel on 05/11/2023 [address], [place], [address] Collected: 05/26/2023 Report ed: 05/26/2023 11:17 tel: Last Documented On 4 12:04PM ; [facility] Reviewed by GLENNA MARQUEZ M.D. on 05/26/2023; All test results are final unless otherwise noted. ALC 1.2 None Last Documented On 4 11:58AM ; [facility] Note: Responsible Observer: (HRG) ANC 4.3 None Last Documented On 4 11:58AM ; [facility] Note: Responsible Observer: (HRG) BASO# 0.02 th/uL (0.00 - 0.20) None Last Documented On 4 11:58AM ; [facility] Note: Responsible Observer: (HRG) BASO% 0.3 % (0.0 - 2.0) None Last Documented On 4 11:58AM ; [facility] Note: Responsible Observer: (HRG) CBC WITH DIFF See Note None Last Documented On 4 11:58AM ; [facility] Note: CBC (COMPLETE BLOOD COUNT)Responsi ble Observer: (HRG) DIFF (Y/N) NO None Last Documented On 4 11:58AM ; [facility] Note: Responsible Observer: (HRG) EOS# 0.23 th/uL (0.00 - 0.45) None Last Documented On 4 11:58AM ; [facility] Note: Responsible Observer: (HRG) EOS% 3.6 % (0.0 - 9.0) None Last Documented On 4 11:58AM ; [facility] Note: Responsible Observer: (HRG) HCT 38.6 % (40.0 - 54.0) L (Low) Last Documented On 4 11:58AM ; [facility] Note: Responsible Observer: (HRG) HGB 12.9 g/dL (13.5 - 17.5) L (Low) Last Documented On 4 11:58AM ; [facility] Note: Responsible Observer: (HRG) IG# 0.04 th/ul (0.00 - 0.10) None Last Documented On 4 11:58AM ; [facility] Note: Responsible Observer: (HRG) IG% 0.6 % (0.0 - 0.5) H (High) Last Documented On 4 11:58AM ; [facility] Note: Responsible Observer: (HRG) LYMPH# 1.19 th/uL (1.00 - 4.80) None Last Documented On 4 11:58AM ; [facility] Note: Responsible Observer: (HRG) LYMPH% 18.7 % (14.0 - 45.0) None Last Documented On 4 11:58AM ; [facility] Note: Responsible Observer: (HRG) MCH 32.9 pg (25.0 - 35.0) None Last Documented On 4 11:58AM ; [facility] Note: Responsible Observer: (HRG) MCHC 33.4 g/dL (31.0 - 36.0) None Last Documented On 4 11:58AM ; [facility] Note: Responsible Observer: (HRG) MCV 98.5 fl (80.0 - 100) None Last Documented On 4 11:58AM ; [facility] Note: Responsible Observer: (HRG) MONO# 0.64 th/uL (0.00 - 0.80) None Last Documented On 4 11:58AM ; [facility] Note: Responsible Observer: (HRG) MONO% 10.1 % (1.0 - 10.0) H (High) Last Documented On 4 11:58AM ; [facility] Note: Responsible Observer: (HRG) MPV 12.7 fl (6.0 - 11.0) H (High) Last Documented On 4 11:58AM ; [facility] Note: Responsible Observer: (HRG) NEUT# 4.24 th/uL None Last Documented On 4 11:58AM ; [facility] Note: Responsible Observer: (HRG) NEUT% 66.7 % (45.0 - 76.0) None Last Documented On 4 11:58AM ; [facility] Note: Responsible Observer: (HRG) NRBC% 0.0 % (0.0 - 0.0) None Last Documented On 4 11:58AM ; [facility] Note: Responsible Observer: (HRG) PLT 141 th/uL (150 - 400) L (Low) Last Documented On 4 11:58AM ; [facility] Note: Responsible Observer: (HRG) RBC 3.92 mil/uL (4.50 - 5.90) L (Low) Last Documented On 4 11:58AM ; [facility] Note: Responsible Observer: (HRG) RDW 11.7 % (11.0 - 16.0) None Last Documented On 4 11:58AM ; [facility] Note: Responsible Observer: (HRG) WBC 6.4 th/uL (4.5 - 11.0) None Last Documented On 4 11:58AM ; [facility] Note: Responsible Observer: (HRG) BMP [facility] La boratory Ordered by GLENNA Coronel on 05/11/2023 [address], [place], [address] Collected: 05/26/2023 Report ed: 05/26/2023 11:34 tel: Last Documented On 4 12:04PM ; [facility] Reviewed by GLENNA MARQUEZ M.D. on 05/26/2023; All test results are final unless otherwise noted. AGE 78 YEARS None Last Documented On 4 11:58AM ; [facility] Note: Responsible Observer: (APR) ANION GAP 14.3 mmol/L (8.0 - 16.0) None Last Documented On 4 11:58AM ; [facility] Note: eGFR INTERPRETATION AGE AVG GFR [...] None Last Documented On 4 11:58AM ; [facility] Note: BASIC METABOLIC PANELResponsible O bserver: (APR) BUN 24 mg/dL (9 - 20) H (High) Last Documented On 4 11:58AM ; [facility] Note: Responsible Observer: (APR) CALCIUM 9.2 mg/dL (8.9 - 10.0) None Last Documented On 4 11:58AM ; [facility] Note: Responsible Observer: (APR) CHLORIDE 105 mmol/L (98 - 107) None Last Documented On 4 11:58AM ; [facility] Note: Responsible Observer: (APR) CREATININE 1.4 mg/dL (0.8 - 1.5) None Last Documented On 4 11:58AM ; [facility] Note: Responsible Observer: (APR) eGFR. 51 mL/min None Last Documented On 4 11:58AM ; [facility] Note: Responsible Observer: (APR) GLUCOSE 86 mg/dL (70 - 105) None Last Documented On 4 11:58AM ; [facility] Note: Responsible Observer: (APR) POTASSIUM 4.3 mmol/L (3.6 - 5.0) None Last Documented On 4 11:58AM ; [facility] Note: Responsible Observer: (APR) SODIUM 139 mmol/L (137 - 145) None Last Documented On 4 11:58AM ; [facility] Note: Responsible Observer: (APR) TCO2 24.0 mmol/L (22.0 - 30.0) None Last Documented On 4 11:58AM ; [facility] Note: Responsible Observer: (APR) [...] 12/09/2022 Last Documented On 4 11:01AM ; [facility] DME in home: 06/14/2022 Last Documented On 4 11:01AM ; [facility] DME in home: cane 06/14/2022 Last Documented On 4 11:01AM ; [facility] [PHQ-2] Patient Health Questionnaire 2 i tem total score: 17 (Scale: 0-6) 02/10/2021 Last Documented On 4 11:01AM ; [facility] Difficulty walking 02/10/2021 Last Documented On 4 11:01AM ; [facility] No consumption of alcohol 02/10/2021 Last Documented On 4 11:01AM ; [facility] Not using drugs 02/10/2021 Last Documented On 4 11:01AM ; [facility] Stopped smoking 40 years ago 12/23/2020 Last Documented On 4 11:01AM ; [facility] Current nonsmoker 07/10/2020 Last Documented On 4 11:01AM ; [facility] Former smoker Pt states he quit smoking over 50 yrs ago 07/10/2020 Last Documented On 4 11:01AM ; [facility] Feeling down, depressed, or hopeless in the last 2 weeks? 0 pt Not at all 07/01/2020 Last Documented On 4 11:01AM ; [facility] Lost interest or pleasure in doing thing s was 0 Not at all 07/01/2020 Last Documented On 4 11:01AM ; [facility] Not using alcohol 07/01/2020 Last Documented On 4 11:01AM ; [facility] Non-smoker 11/06/2019 Last Documented On 4 11:01AM ; [facility] No tobacco use prev hx of 50 pack years smoking at young age 0105/08/2019 Last Documented On 4 11:01AM ; [facility] Not using alcohol 11/03/2017 Last Documented On 4 11:01AM ; [facility] Smoking status : Former smoker 8 Last Documented On 4 11:01AM ; [facility] Lives alone 07/23/2012 Last Documented On 4 11:01AM ; [facility] Caffeine use 09/28/2011 Last Documented On 4 11:01AM ; [facility] Single 09/21/2011 Last Documented On 4 11:01AM ; [facility] Retired from work 07/07/2011 Last Documented On 4 11:01AM ; [facility] Abnormal diet TRY TO EAT HARDLY ANY RED MEAT. EAT FISH,VEGETABLES, ETC 08/25/2010 Last Documented On 4 11:01AM ; [facility] Exercise frequency BIKE RIDE 1/2 HR, WA LK 1/2 HR, WEIGHTS 1/2 HR 08/25/2010 Last Documented On 4 11:01AM ; [facility] Occupation [employer] 200608/25/2010 Last Documented On 4 11:01AM ; [facility] Procedures and Surgical History Includes: Procedures from this encounter Procedures Code Diagnosis Performing Provider Service L ocation Service Date use of tobacco assessment performed 1000F Last Documented On 4 11:06AM ; [facility] review of medications documented 1160F Last Documented On 4 11:06AM ; [facility] Surgical History Last Updated No Pacemaker 02/10/2021 Last Documented On 4 11:01AM ; [facility] History of prostate surgery 09/2009 Last Documented On 4 11:01AM ; [facility] Medical History Includes: Medical History addressed during this encounter Description Last Updated Vaccine history 05/30/2023 Last Documented On 4 11:25AM ; [facility] Diastolic blood pressure 85 mmHg 023 Last Documented On 4 11:01AM ; [facility] Systolic blood pressure 150 mmHg 023 Last Documented On 4 11:01AM ; [facility] No diagnosis of history of chronic obstr uctive pulmonary disease 12/09/2022 Last Documented On 4 11:01AM ; [facility] No diagnosis of history of diabetes fozia itus 12/09/2022 Last Documented On 4 11:01AM ; [facility] No history of Congestive Heart Failure 0 12/09/2022 Last Documented On 4 11:01AM ; [facility] Surgery prostate and bladder surgery 04/2022 Last Documented On 4 11:01AM ; [facility] Please list all illnesses/co nditions you have been diagnosed with: Cancer. Prostate and Bladder 02/10/2021 Last Documented On 4 11:01AM ; [facility] Back brace 02/10/2021 Last Documented On 4 11:01AM ; [facility] Currently wearing eyeglasses 02/10/2021 Last Documented On 4 11:01AM ; [facility] No Pain Pump 02/10/2021 Last Documented On 4 11:01AM ; [facility] No Spinal cord stimulator 02/10/2021 Last Documented On 4 11:01AM ; [facility] Please list all surgeries: Prostrate marilu e 2009. bladder. dec 2013 02/10/2021 Last Documented On 4 11:01AM ; [facility] Severe Pain 02/10/2021 Last Documented On 4 11:01AM ; [facility] Uses a cane for support 02/10/2021 Last Documented On 4 11:01AM ; [facility] No Contact with and (Suspected) exposure to COVID-19 07/01/2020 Last Documented On 4 11:01AM ; [facility] No fall 07/01/2020 Last Documented On 4 11:01AM ; [facility] Not using Opioids 07/01/2020 Last Documented On 4 11:01AM ; [facility] Denies a fear of falling. 05/08/2019 Last Documented On 4 11:01AM ; [facility] Has had no fall in the last 12 months. 0 05/08/2019 Last Documented On 4 11:01AM ; [facility] Medication compliance 07/23/2012 Last Documented On 4 11:01AM ; [facility] Taking medication 09/28/2011 Last Documented On 4 11:01AM ; [facility] Prostate Ca, SP Prostatectomy ~ Urology Dr Charlton 07/07/2011 Last Documented On 4 11:01AM ; [facility] History of essential hypertension 2011 Last Documented On 4 11:01AM ; [facility] History of hyperlipidemia 07/07/2011 Last Documented On 4 11:01AM ; [facility] History of hypertension 08/25/2010 Last Documented On 4 11:01AM ; [facility] Family History Includes: Family History addressed during this encounter Description Last Updated Family history of Cancer Breast Cancer 0 12/09/2022 Last Documented On 4 11:01AM ; [facility] Not using Opioids 12/09/2022 Last Documented On 4 11:01AM ; [facility] Fraternal history of family history of i schemic heart disease 02/10/2021 Last Documented On 4 11:01AM ; [facility] Fraternal history of coronary artery dis ease 08/04/2017 Last Documented On 4 11:01AM ; [facility] Family history reviewed - unchanged sin e last visit 11/06/2015 Last Documented On 4 11:01AM ; [facility] Fraternal history of cancer 04/29/2015 Last Documented On 4 11:01AM ; [facility] Fraternal history of heart disease 04/29 Last Documented On 4 11:01AM ; [facility] Maternal history of cancer 04/29/2015 Last Documented On 4 11:01AM ; [facility] Family history of cancer 07/07/2011 Last Documented On 4 11:01AM ; [facility] Family history of coronary artery diseas e 07/07/2011 Last Documented On 4 11:01AM ; [facility] Brother 69 years old [place] 8 YEARS AGO 08/25/2010 Last Documented On 4 11:01AM ; [facility] Father 1985 AT AGE 74- PUMA GEHRIG'S TYPE DISEASE 08/25/2010 Last Documented On 4 11:01AM ; [facility] Heart disease 08/25/2010 Last Documented On 4 11:01AM ; [facility] Mother 1995 AT AGE 72- BREAST CANCER 08/25/2010 Last Documented On 4 11:01AM ; [facility] Review of Systems Includes: Review [...] Active Last Documented On 4 10:45AM ; [facility] BEES Allergy 12/22/2015 Active Last Documented On 4 10:45AM ; [facility] Encounters Encounter Provider Location Date Check-In Time Check-Out Time Diagnosis CHECK UP GLENNA MARQUEZ M.D. [facility] 05/30/19 24 10:57AM 11:15AM Essential Hypertension, Esophageal Reflux,Hyperl ipidemia,Atri al Fibrillation, Spinal Stenosis Lumbosacral,C onstipation Drug-induced, Chronic Renal Failure Insurance Includes: Active Insurance Policies Plan Name Member ID Group # Subscriber Relationship Effect shannon Dates 1 - MEDICARE PART A CLAIMS/NGS [id number] [facility] 2 - [facility] OPT[employer] [id number] [facility] Clinical Notes Includes: Clinical Notes from this encounter * Progress note Date Encounter Last Documented by 05/30/2023 CHECK UP Last documented on 05/30/2023; 11:25 AM, GLENNA MARQUEZ M.D.; [facility] Active Problems & Conditions [...] Work: Retired from work and occupation [employer] 2006. Marital: Single. Functional: Feeling down, depressed, [...]
--- OUTSIDE RECORDS SUMMARY | 2024-07-17 09:09 | XMS_ITS | Clinical Summary ---
Author Organization [facility] Address [address] [place] [address] Phone Care Team Providers Care Double Cut Sawyer Name Role Phone JIMMY PRICE, SAI Primary Care Provider [phone] JIMMY Andrews, GLENNA Macias Unavailable [phone] Reason for Visit and Chief Complaint ECHOCARDIOGRAM Problems Includes: Problems addressed during this encounter and other active Problems All Visits Onset Date Resolved Date Provider Condition S tatus Chronic Renal Failure 06/14/2022 MEGAN MARQUEZ M.D. Active Last Documented On 06/14/2022 11:26AM ; [facility] Note: Unchanged Constipation Drug-induced 02/18/2022 GLENNA MARQUEZ M.D. Active Last Documented On 02/18/2022 11:15AM ; [facility] Note: Unchanged Spinal Stenosis Lumbosacral 05/20/2021 GLENNA MARQUEZ M.D. Active Last Documented On 2 10:56AM ; [facility] Atrial Fibrillation 03/02/2021 GLENNA MARQUEZ M.D. Active Last Documented On 1 11:51AM ; [facility] Note: Unchanged Hyperlipidemia 08/04/2017 GLENNA MARQUEZ M.D. Active Last Documented On 8 10:00AM ; [facility] Note: Unchanged Esophageal Reflux 05/25/2012 GLENNA June Active Last Documented On 4 9:40AM ; [facility] Essential Hypertension 08/25/2010 GLENNA WHEELER M.D. Active Last Documented On 4 9:40AM ; [facility] Plan of Treatment No Plan of Treatment [...] 09/11/2023 10:36AM By SAI MARQUEZ MD ; [facility] Lisinopril 20 MG Oral Tablet 07/10/2023 Provider: GLENNA MARQUEZ M.D. Diagnosis: Essential (prima ry) hypertension TAKE 1 TABLET BY MOUTH TWICE DAILY Last Documented On 07/10/2023 3:00PM By SAI MARQUEZ MD ; [facility] Eliquis 5 MG Oral Tablet 07/10/2023 Provider: SAI MARQUEZ M.D. Diagnosis: Unspecified atri al fibrillation One tablet twice a day Last Documented On 07/10/2023 2:28PM By SAI MARQUEZ MD ; [facility] Naloxone HCl 4 MG/0.1ML Nasal Liquid 03/29/2023 Provider: GLENNA MARQUEZ M.D. Diagnosis: senior living (curre nt) use of opiate analgesic as directed 4 mg nasally as needed Last Documented On 03/29/2023 11:32AM By SAI MARQUEZ MD ; [facility] Pravastatin Sodium 20 MG Oral Tablet 03/29/2023 Provider: GLENNA MARQUEZ M.D. Diagnosis: Hyperlipidemia, unspecified TAKE 1 TABLET BY MOUTH DAILY Last Documented On 03/29/2023 1:37PM By SAI MARQUEZ MD ; [facility] Suspended Medications MiraLax 17 GM/SCOOP Oral Powder 02/22/2023 Provider: GLENNA MARQUEZ M.D. Diagnosis: as directed 1 to scops q day Last Documented On 02/22/2023 8:51AM By GUERDA Beavers LPN ; [facility] Medications Administered Includes: Administered Medications [...] Date ECHOCARDIOGRAPHY- TRANSTHORAC W/ DOPPLER (Professional Comp.) 77836 Other persistent atrial fibrillation, Essential (primary) hypertension, Mixed hyperlipidemia, Rheumatic disorders of both mitral and tricuspid valves CALOS JONES MD [facility]- 08/25/2023 Last Documented On 4 1:23PM ; [facility] ELECTROCARDIAGRAM READING FEE (EKG) (DISTINCT PROCEDURAL SERVICE DIFFERENT SITE) [id number] Other persistent atrial fibrillation, Essential (primary) hypertension CALOS JONES MD [facility]- 08/25/2023 Last Documented On 4 1:23PM ; [facility] Medical History Includes: Medical History addressed [...] Active Last Documented On 4 10:45AM ; [facility] Allergy 12/22/2015 Active Last Documented On 4 10:45AM ; [facility] Encounters Encounter Provider Location Date Check-In Time Check-Out Time Diagnosis ECHOCARDIOGRAM CALOS JONES MD [facility] 4 10:40AM 11:26AM Insurance Includes: Active Insurance Policies Plan Name Member ID Group # Subscriber Relationship Effect shannon Dates 1 - MEDICARE PART A CLAIMS/NGS [id number] MARIANNA Salas 2 - [facility] OPTIONS [id number] MARIANNA Salas Clinical Notes Includes: Clinical Notes from this encounter No Clinical Notes Recorded
--- OUTSIDE RECORDS SUMMARY | 2024-07-17 09:09 | XMS_ITS ---
Care Plan - [facility] Created on: July 17, 2024 DRAKE MARIANNA Rivero : 1945 Sex: Male Author Organization [facility] Address [address] [place] [address] Phone Care Team Providers Care Senior Net Application Developer Name Role Phone JIMMY PRICE, SAI Primary Care Provider [phone] JIMMY Andrews, GLENNA Macias Unavailable [phone]
--- OUTSIDE RECORDS SUMMARY | 2024-07-17 09:09 | XMS_ITS | Clinical Summary ---
Author Organization [facility] Address [address] [place] [address] Phone Care Team Providers Care Mold Tooling Technician Name Role Phone JIMMY PRICE, SAI Primary Care Provider [phone] JIMMY Andrews, GLENNA Macias Unavailable [phone] Reason for Visit and Chief Complaint visit [...] Documented On 06/14/2022 11:26AM ; [facility] Note: Unchanged Constipation Drug-induced 02/18/2022 GLENNA MARQUEZ M.D. Active Last Documented On 02/18/2022 11:15AM ; [facility] Note: Unchanged Spinal Stenosis Lumbosacral 05/20/2021 GLENNA MARQUEZ M.D. Active Last Documented On 2 10:56AM ; [facility] Atrial Fibrillation 03/02/2021 GLENNA MARQUEZ M.D. Active Last Documented On 1 11:51AM ; [facility] Note: Unchanged Hyperlipidemia 08/04/2017 GLENNA MARQUEZ M.D. Active Last Documented On 8 10:00AM ; [facility] Note: Unchanged Esophageal Reflux 05/25/2012 GLENNA June Active Last Documented On 4 9:40AM ; [facility] Hyperlipidemia 08/25/2010 GLENNA MARQUEZ M.D. Inactive Last Documented On 5 10:50AM ; [facility] Essential Hypertension 08/25/2010 GLENNA Vieira.DJun Active Last Documented On 4 9:40AM ; [facility] Plan of Treatment - Return to the clinic if condition worsens or new symptoms arise - Last Documented On 08/28/2023 11:24AM ; [facility] - Continue current medication - Last Documented On 08/28/2023 11:24AM ; [facility] - Patient to call if problem develops - Last Documented On 08/28/2023 11:24AM ; [facility] Education and Decision Aids were provided during visit for: Education and counseling Adv ice to have regular exercise regimen Last Documented On 11:19AM ; [facility] Assessments Includes: Assessments from this encounter Findings - I48.91 - Unspecified atrial fibrillation - Last Documented On 08/28/2023 11:24AM ; [facility] - I10 - Essential (primary) hypertension - Last Documented On 08/28/2023 11:24AM ; [facility] - K21.9 - Gastro-esophageal reflux disease without esophagitis - Last Documented On 08/28/2023 11:24AM ; [facility] - K59.03 - Drug induced constipation - Last Documented On 08/28/2023 11:24AM ; [facility] - N18.9 - Chronic kidney disease, unspecified - Last Documented On 08/28/2023 11:24AM ; [facility] - E78.5 - Hyperlipidemia, unspecified - Last Documented On 08/28/2023 11:24AM ; [facility] - M48.07 - Spinal stenosis, lumbosacral region - Last Documented On 08/28/2023 11:24AM ; [facility] Instructions Includes: Instructions from this encounter Education and Decision Aids were provided during visit for: Education and counseling Adv ice to have regular exercise regimen Last Documented On 11:19AM ; [facility] Medical Equipment - Implanted Devices Includes: Current Devices No Medical Equipment Recorded Medications Includes: Medications discussed during this encounter and other current Medications Discontinued / Stopped on this date GLENNA MARQUEZ M.D. on 12/20/2022 Lisinopril 10 MG Oral Tablet Provider: GLENNA MARQUEZ M.D. Diagnosis: Essential (prima ry) hypertension Last Documented On 08/28/2023 11:06AM By SAI MARQUEZ MD ; [facility] Current Medications (continue as prescribed) HYDROcodone-Acetaminophen 7. 5-325 MG Oral Tablet 09/11/2023 Provider: GLENNA MARQUEZ M.D. Diagnosis: Spinal stenosis, lumbosacral region Take one four times a day as needed Last Documented On 09/11/2023 10:36AM By SAI MARQUEZ MD ; [facility] Lisinopril 20 MG Oral Tablet 07/10/2023 Provider: GLENNA MARQUEZ M.D. Diagnosis: Essential (prima ry) hypertension TAKE 1 TABLET BY MOUTH TWICE DAILY Last Documented On 07/10/2023 3:00PM By SAI MARQUEZ MD ; [facility] Eliquis 5 MG Oral Tablet 07/10/2023 Provider: SAI MARQUEZ M.D. Diagnosis: Unspecified atri al fibrillation One tablet twice a day Last Documented On 07/10/2023 2:28PM By SAI MARQUEZ MD ; [facility] Naloxone HCl 4 MG/0.1ML Nasal Liquid 03/29/2023 Provider: GLENNA MARQUEZ M.D. Diagnosis: penitentiary (curre nt) use of opiate analgesic as directed 4 mg nasally as needed Last Documented On 03/29/2023 11:32AM By SAI MARQUEZ MD ; [facility] Pravastatin Sodium 20 MG Oral Tablet 03/29/2023 Provider: GLENNA MARQUEZ M.D. Diagnosis: Hyperlipidemia, unspecified TAKE 1 TABLET BY MOUTH DAILY Last Documented On 03/29/2023 1:37PM By SAI MARQUEZ MD ; [facility] Suspended Medications MiraLax 17 GM/SCOOP Oral Powder 02/22/2023 Provider: GLENNA MARQUEZ M.D. Diagnosis: as directed 1 to scops q day Last Documented On 02/22/2023 8:51AM By GUERDA Beavers LPN ; [facility] Medications Administered Includes: Administered Medications [...] Last Documented: On 08/28/2023 10:50A M ; [facility] Results Includes: Results discussed during [...] 12/09/2022 Last Documented On 4 10:45AM ; [facility] DME in home: 06/14/2022 Last Documented On 4 10:45AM ; [facility] DME in home: cane 06/14/2022 Last Documented On 4 10:45AM ; [facility] [PHQ-2] Patient Health Questionnaire 2 i tem total score: 17 (Scale: 0-6) 02/10/2021 Last Documented On 4 10:45AM ; [facility] Difficulty walking 02/10/2021 Last Documented On 4 10:45AM ; [facility] No consumption of alcohol 02/10/2021 Last Documented On 4 10:45AM ; [facility] Not using drugs 02/10/2021 Last Documented On 4 10:45AM ; [facility] Stopped smoking 40 years ago 12/23/2020 Last Documented On 4 10:45AM ; [facility] Current nonsmoker 07/10/2020 Last Documented On 4 10:45AM ; [facility] Former smoker Pt states he quit smoking over 50 yrs ago 07/10/2020 Last Documented On 4 10:45AM ; [facility] Feeling down, depressed, or hopeless in the last 2 weeks? 0 pt Not at all 07/01/2020 Last Documented On 4 10:45AM ; [facility] Lost interest or pleasure in doing thing s was 0 Not at all 07/01/2020 Last Documented On 4 10:45AM ; [facility] Not using alcohol 07/01/2020 Last Documented On 4 10:45AM ; [facility] Non-smoker 11/06/2019 Last Documented On 4 10:45AM ; [facility] No tobacco use prev hx of 50 pack years smoking at young age 0105/08/2019 Last Documented On 4 10:45AM ; [facility] Not using alcohol 11/03/2017 Last Documented On 4 10:45AM ; [facility] Smoking status : Former smoker 8 Last Documented On 4 10:45AM ; [facility] Lives alone 07/23/2012 Last Documented On 4 10:45AM ; [facility] Caffeine use 09/28/2011 Last Documented On 4 10:45AM ; [facility] Single 09/21/2011 Last Documented On 4 10:45AM ; [facility] Retired from work 07/07/2011 Last Documented On 4 10:45AM ; [facility] Abnormal diet TRY TO EAT HARDLY ANY RED MEAT. 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 Last Documented On 4 10:45AM ; [facility] Procedures and Surgical History Includes: Procedures from this encounter Procedures Code Diagnosis Performing Provider Service L ocation Service Date use of tobacco assessment performed 1000F Last Documented On 4 10:50AM ; [facility] review of medications documented 1160F Last Documented On 4 10:50AM ; [facility] Surgical History Last Updated No Pacemaker 02/10/2021 Last Documented On 4 10:45AM ; [facility] History of prostate surgery 09/2009 Last Documented On 4 10:45AM ; [facility] Medical History Includes: Medical History addressed during this encounter Description Last Updated Vaccine history 05/30/2023 Last Documented On 4 10:45AM ; [facility] No diagnosis of history of chronic obstr uctive pulmonary disease 12/09/2022 Last Documented On 4 10:45AM ; [facility] No diagnosis of history of diabetes fozia itus 12/09/2022 Last Documented On 4 10:45AM ; [facility] No history of Congestive Heart Failure 0 12/09/2022 Last Documented On 4 10:45AM ; [facility] Surgery prostate and bladder surgery 04/2022 Last Documented On 4 10:45AM ; [facility] Please list all illnesses/co nditions you have been diagnosed with: Cancer. Prostate and Bladder 02/10/2021 Last Documented On 4 10:45AM ; [facility] Back brace 02/10/2021 Last Documented On 4 10:45AM ; [facility] Currently wearing eyeglasses 02/10/2021 Last Documented On 4 10:45AM ; [facility] No Pain Pump 02/10/2021 Last Documented On 4 10:45AM ; [facility] No Spinal cord stimulator 02/10/2021 Last Documented On 4 10:45AM ; [facility] Please list all surgeries: Prostrate marilu e 2009. bladder. sept 201302/10/2021 Last Documented On 4 10:45AM ; [facility] Severe Pain 02/10/2021 Last Documented On 4 10:45AM ; [facility] Uses a cane for support 02/10/2021 Last Documented On 4 10:45AM ; [facility] No Contact with and (Suspected) exposure to COVID-19 07/01/2020 Last Documented On 4 10:45AM ; [facility] No fall 07/01/2020 Last Documented On 4 10:45AM ; [facility] Not using Opioids 07/01/2020 Last Documented On 4 10:45AM ; [facility] Denies a fear of falling. 05/08/2019 Last Documented On 4 10:45AM ; [facility] Has had no fall in the last 12 months. 0 05/08/2019 Last Documented On 4 10:45AM ; [facility] Medication compliance 07/23/2012 Last Documented On 4 10:45AM ; [facility] Taking medication 09/28/2011 Last Documented On 4 10:45AM ; [facility] Prostate Ca, SP Prostatectomy ~ Urology Dr Charlton 07/07/2011 Last Documented On 4 10:45AM ; [facility] History of essential hypertension 2011 Last Documented On 4 10:45AM ; [facility] History of hyperlipidemia 07/07/2011 Last Documented On 4 10:45AM ; [facility] History of hypertension 08/25/2010 Last Documented On 4 10:45AM ; [facility] Family History Includes: Family History addressed during this encounter Description Last Updated Family history of Cancer Breast Cancer 0 12/09/2022 Last Documented On 4 10:45AM ; [facility] Not using Opioids 12/09/2022 Last Documented On 4 10:45AM ; [facility] Fraternal history of family history of i schemic heart disease 02/10/2021 Last Documented On 4 10:45AM ; [facility] Fraternal history of coronary artery dis ease 08/04/2017 Last Documented On 4 10:45AM ; [facility] Family history reviewed - unchanged [facility] e last visit 11/06/2015 Last Documented On 4 10:45AM ; [facility] Fraternal history of cancer 04/29/2015 Last Documented On 4 10:45AM ; [facility] Fraternal history of heart disease 04/29 Last Documented On 4 10:45AM ; [facility] Maternal history of cancer 04/29/2015 Last Documented On 4 10:45AM ; [facility] Family history of cancer 07/07/2011 Last Documented On 4 10:45AM ; [facility] Family history of coronary artery diseas e 07/07/2011 Last Documented On 4 10:45AM ; [facility] Brother 69 years old [place] [place] 8 YEARS AGO 08/25/2010 Last Documented On 4 10:45AM ; [facility] Father 1985 AT AGE 74- PUMA GEHRIG'S TYPE DISEASE 08/25/2010 Last Documented On 4 10:45AM ; [facility] Heart disease 08/25/2010 Last Documented On 4 10:45AM ; [facility] Mother 1995 AT AGE 72- BREAST CANCER 08/25/2010 Last Documented On 4 10:45AM ; [facility] Review of Systems Includes: [...] Documented On 4 10:45AM ; [facility] Allergy 12/22/2015 Active Last Documented On 4 10:45AM ; [facility] Encounters Encounter Provider Location Date Check-In Time Check-Out Time Diagnosis CHECK UP GLENNA MARQUEZ M.D. [facility] 08/28/19 24 10:42AM 11:19AM Essential Hypertension, Esophageal Reflux,Hyperl ipidemia,Atri al Fibrillation, Spinal Stenosis Lumbosacral,C onstipation Drug-induced, Chronic Renal Failure Insurance Includes: Active Insurance Policies Plan Name Member ID Group # Subscriber Relationship Effect shannon Dates 1 - MEDICARE PART A CLAIMS/NGS [id number] MARIANNA JUAN Self 2 - [facility] OPTIONS [id number] MARIANNA JUAN Self Clinical Notes Includes: Clinical Notes from this encounter * Progress note Date Encounter Last Documented by 08/28/2023 CHECK UP Last documented on 08/28/2023; 11:24 AM, GLENNA MARQUEZ M.D.; [facility] Active Problems & Conditions - I48.91 [...]
--- OUTSIDE RECORDS SUMMARY | 2024-07-17 09:09 | XMS_ITS | Clinical Summary ---
Author Organization [facility] Address [address] [place] [address] Phone Care Team Providers Care Buggy Operator Name Role Phone JIMMY PRICE, SAI Primary Care Provider [phone] JIMMY Andrews, GLENNA Macias Unavailable [phone] Reason for Visit and Chief Complaint [facility] CHECK UP Problems Includes: Problems addressed during this encounter and other active Problems All Visits Onset Date Resolved Date Provider Condition S tatus Chronic Renal Failure 06/14/2022 MEGAN MARQUEZ M.D. Active Last Documented On 06/14/2022 11:26AM ; [facility] Note: Unchanged Constipation Drug-induced 02/18/2022 GLENNA MARQUEZ M.D. Active Last Documented On 02/18/2022 11:15AM ; [facility] Note: Unchanged Spinal Stenosis Lumbosacral 05/20/2021 GLENNA MARQUEZ M.D. Active Last Documented On 2 10:56AM ; [facility] Atrial Fibrillation 03/02/2021 GLENNA MARQUEZ M.D. Active Last Documented On 1 11:51AM ; [facility] Note: Unchanged Hyperlipidemia 08/04/2017 GLENNA MARQUEZ M.D. Active Last Documented On 8 10:00AM ; [facility] Note: Unchanged Esophageal Reflux 05/25/2012 GLENNA June Active Last Documented On 4 9:40AM ; [facility] Essential Hypertension 08/25/2010 GLENNA WHEELER M.D. Active Last Documented On 4 9:40AM ; [facility] Plan of Treatment No Plan of [...] 09/11/2023 10:36AM By SAI MARQUEZ MD ; [facility] Lisinopril 20 MG Oral Tablet 07/10/2023 Provider: GLENNA MARQUEZ M.D. Diagnosis: Essential (prima ry) hypertension TAKE 1 TABLET BY MOUTH TWICE DAILY Last Documented On 07/10/2023 3:00PM By ASI MARQUEZ MD ; [facility] Eliquis 5 MG Oral Tablet 07/10/2023 Provider: SAI MARQUEZ M.D. Diagnosis: Unspecified atri al fibrillation One tablet twice a day Last Documented On 07/10/2023 2:28PM By SAI MARQUEZ MD ; [facility] Naloxone HCl 4 MG/0.1ML Nasal Liquid 03/29/2023 Provider: GLENNA MARQUEZ M.D. Diagnosis: online services manager (curre nt) use of opiate analgesic as directed 4 mg nasally as needed Last Documented On 03/29/2023 11:32AM By SAI MARQUEZ MD ; [facility] Pravastatin Sodium 20 MG Oral Tablet 03/29/2023 Provider: GLENNA MARQUEZ M.D. Diagnosis: Hyperlipidemia, unspecified TAKE 1 TABLET BY MOUTH DAILY Last Documented On 03/29/2023 1:37PM By SAI MARQUEZ MD ; [facility] Suspended Medications MiraLax 17 GM/SCOOP Oral Powder 02/22/2023 Provider: GLENNA MARQUEZ M.D. Diagnosis: as directed 1 to scops q day Last Documented On 02/22/2023 8:51AM By GUERDA Beavers LPN ; [facility] Medications Administered Includes: [...] Active Last Documented On 4 10:45AM ; [facility] Allergy 12/22/2015 Active Last Documented On 4 10:45AM ; [facility] Encounters Encounter Provider Location Date Check-In Time Check- Out Time Diagnosis [facility] CHECK UP CALOS JONES MD [facility] 4 11:30AM 11:53AM Insurance Includes: Active Insurance Policies Plan Name Member ID Group # Subscriber Relationship Effect shannon Dates 1 - MEDICARE PART A CLAIMS/NGS [id number] MARIANNA Salas 2 - [facility] OPTIONS [id number] MARIANNA Salas Clinical Notes Includes: Clinical Notes from this encounter No Clinical Notes Recorded
--- OUTSIDE RECORDS SUMMARY | 2024-07-17 09:09 | XMS_ITS | Clinical Summary ---
Author Organization [facility] Address [address] [place] [address] Phone Care Team Providers Care Synthetic Chemist Name Role Phone JIMMY PRICE, SAI Primary Care Provider [phone] JIMMY Andrews, GLENNA Macias Unavailable [phone] Reason for Visit and Chief Complaint CAROTID ULTRASOUND Problems Includes: Problems addressed during this encounter and other active Problems All Visits Onset Date Resolved Date Provider Condition S tatus Chronic Renal Failure 06/14/2022 MEGAN MARQUEZ M.D. Active Last Documented On 06/14/2022 11:26AM ; [facility] Note: Unchanged Constipation Drug-induced 02/18/2022 GLENNA MARQUEZ M.D. Active Last Documented On 02/18/2022 11:15AM ; [facility] Note: Unchanged Spinal Stenosis Lumbosacral 05/20/2021 GLENNA MARQUEZ M.D. Active Last Documented On 2 10:56AM ; [facility] Atrial Fibrillation 03/02/2021 GLENNA MARQUEZ M.D. Active Last Documented On 1 11:51AM ; [facility] Note: Unchanged Hyperlipidemia 08/04/2017 GLENNA MARQUEZ M.D. Active Last Documented On 8 10:00AM ; [facility] Note: Unchanged Esophageal Reflux 05/25/2012 GLENNA June Active Last Documented On 4 9:40AM ; [facility] Essential Hypertension 08/25/2010 GLENNA WHEELER M.D. Active Last Documented On 4 9:40AM ; [facility] Plan of Treatment No Plan [...] 09/11/2023 10:36AM By SAI MARQUEZ MD ; [facility] Lisinopril 20 MG Oral Tablet 07/10/2023 Provider: GLENNA MARQUEZ M.D. Diagnosis: Essential (prima ry) hypertension TAKE 1 TABLET BY MOUTH TWICE DAILY Last Documented On 07/10/2023 3:00PM By SAI MARQUEZ MD ; [facility] Eliquis 5 MG Oral Tablet 07/10/2023 Provider: SAI MARQUEZ M.D. Diagnosis: Unspecified atri al fibrillation One tablet twice a day Last Documented On 07/10/2023 2:28PM By SAI MARQUEZ MD ; [facility] Naloxone HCl 4 MG/0.1ML Nasal Liquid 03/29/2023 Provider: GLENNA MARQUEZ M.D. Diagnosis: FPC (curre nt) use of opiate analgesic as directed 4 mg nasally as needed Last Documented On 03/29/2023 11:32AM By SAI MARQUEZ MD ; [facility] Pravastatin Sodium 20 MG Oral Tablet 03/29/2023 Provider: GLENNA MARQUEZ M.D. Diagnosis: Hyperlipidemia, unspecified TAKE 1 TABLET BY MOUTH DAILY Last Documented On 03/29/2023 1:37PM By SAI MARQUEZ MD ; [facility] Suspended Medications MiraLax 17 GM/SCOOP Oral Powder 02/22/2023 Provider: GLENNA MARQUEZ M.D. Diagnosis: as directed 1 to scops q day Last Documented On 02/22/2023 8:51AM By GUERDA Beavers LPN ; [facility] Medications Administered Includes: [...] OF EXTRACRANIAL ARTERIES; COMP BRAXTON (Professional Comp.) 39613 Occlusion and stenosis of bilateral carotid arteries ANNAMARIA JONES MD [facility] 09/18/2023 Last Documented On 4 10:18AM ; [facility] Medical History Includes: Medical History [...] Active Last Documented On 4 10:45AM ; [facility] Allergy 12/22/2015 Active Last Documented On 4 10:45AM ; [facility] Encounters Encounter Provider Location Date Check-In Time Check-Out Time Diagnosis CAROTID ULTRASOUND ANNAMARIA JONES MD [facility] 09/18/19 24 10:41AM 11:28AM Insurance Includes: Active Insurance Policies Plan Name Member ID Group # Subscriber Relationship Effect shannon Dates 1 - MEDICARE PART A CLAIMS/NGS [id number] MARIANNA Salas 2 - [facility] OPTIONS [id number] MARIANNA Salas Clinical Notes Includes: Clinical Notes from this encounter No Clinical Notes Recorded
[2024-07-17 09:23] LABS: Strep Group A RT-PCR NOT DETECTED (Negative)
[2024-07-17 09:49] LABS: Alanine Aminotransferase 44 U/L (16-63); Albumin Level 3.5 g/dL (3.4-5.0); Alkaline Phosphatase 84 U/L (46-116); Anion Gap 10 mmol/L (4-12); Aspartate Amino Transferase 47 U/L (15-37); Bilirubin Direct 0.4 mg/dL (0-0.2); Blood Urea Nitrogen 19 mg/dL (7-18); Calcium 8.6 mg/dL (8.5-10.1); Carbon Dioxide 28 mmol/L (21-32); Chloride 99 mmol/L (98-108); Cholesterol 124 mg/dL (0-200); Estimated Glomerular Filt Rate 57; Glucose 144 mg/dL (70-99); HDL Direct 52 mg/dL (40-60); LDL Cholesterol Calculated 61 mg/dL (<130); Osmolality Calculated 289 mOsm/kg (285-295); Potassium 3.6 mmol/L (3.5-5.1); Sodium 137 mmol/L (136-145); Total Protein 6.4 g/dL (6.4-8.2); Triglycerides 53 mg/dL (0-150)
[2024-07-17 17:59] LABS: Free T4 Free Thyroxine 1.14 ng/dL (0.76-1.46)
== END 2024-07-17 08:40 | disposition home or self-care (01) ==
PROVIDERS: PCP Family Medicine; Visit Provider Family Medicine
DX: N17.9 Acute kidney failure, unspecified (principal); E86.0 Dehydration; I10 Essential (primary) hypertension
CPT/HCPCS: 36415; 80053; 80061; 82248; 84439; 84443; 85027; 87651

== ENCOUNTER 2024-08-05 11:11 | Outpatient (CLI) | payer MEDICARE, SELFPAY ==
--- NOTE | ~2024-08-05 | XR_ITS ---
EXAM: XR shoulder RT min 2V, XR humerus RT DATE: 08/05/2024 11:34 HISTORY: other specified soft tissue disorders . COMPARISON: None available. FINDINGS: Decreased mineralization. No fracture or dislocation in the right shoulder or right humeru s. No lytic or blastic lesion. Moderate degenerative change at the AC joint. Mild degenerative change s at the glenohumeral joint. No erosion or periosteal change. Right hemidiaphragm elevation. 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 Right hemidiaphragm elevation, consider fluoroscopic evaluation (sniff test). Reviewed, dictated and finalized at location K. 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 Right hemidiaphragm elevation, consider fluoroscopic evaluation (sniff test).
--- OUTSIDE RECORDS SUMMARY | 2024-08-05 13:10 | XMS_ITS | Clinical Summary ---
Author Organization [facility] Address [address] [place] [address] Phone Care Team Providers Care Gear Lapper Name Role Phone JIMMY PRICE, SAI Primary Care Provider [phone] JIMMY Andrews, GLENNA Macias Unavailable [phone] Reason for Visit and Chief Complaint visit [...] Active Last Documented On 06/14/2022 11:26AM ; [facility] Note: Unchanged Constipation Drug-induced 02/18/2022 GLENNA MARQUEZ M.D. Active Last Documented On 02/18/2022 11:15AM ; [facility] Note: Unchanged Spinal Stenosis Lumbosacral 05/20/2021 GLENNA MARQUEZ M.D. Active Last Documented On 2 10:56AM ; [facility] Atrial Fibrillation 03/02/2021 GLENNA MARQUEZ M.D. Active Last Documented On 1 11:51AM ; [facility] Note: Unchanged Hyperlipidemia 08/04/2017 GLENNA MARQUEZ M.D. Active Last Documented On 8 10:00AM ; [facility] Note: Unchanged Esophageal Reflux 05/25/2012 GLENNA June Active Last Documented On 4 9:40AM ; [facility] Hyperlipidemia 08/25/2010 GLENNA MARQUEZ M.D. Inactive Last Documented On 5 10:50AM ; [facility] Essential Hypertension 08/25/2010 GLENNA WHEELER M.D. Active Last Documented On 4 9:40AM ; [facility] Plan of Treatment - Monitor Blood Pressure at home - Last Documented On 05/30/2023 11:25AM ; [facility] - Return to the clinic if condition worsens or new symptoms arise - Last Documented On 05/30/2023 11:25AM ; [facility] - Continue current medication - Last Documented On 05/30/2023 11:25AM ; [facility] - Modify drug dosage Lisinopril to 20 mg 2 x a day - Last Documented On 05/30/2023 11:25AM ; [facility] - Patient to call if problem develops - Last Documented On 05/30/2023 11:25AM ; [facility] Assessments Includes: Assessments from this encounter Findings - I48.91 - Unspecified atrial fibrillation - Last Documented On 05/30/2023 11:25AM ; [facility] - I10 - Essential (primary) hypertension - Last Documented On 05/30/2023 11:25AM ; [facility] - K21.9 - Gastro-esophageal reflux disease without esophagitis - Last Documented On 05/30/2023 11:25AM ; [facility] - K59.03 - Drug induced constipation - Last Documented On 05/30/2023 11:25AM ; [facility] - N18.9 - Chronic kidney disease, unspecified - Last Documented On 05/30/2023 11:25AM ; [facility] - E78.5 - Hyperlipidemia, unspecified - Last Documented On 05/30/2023 11:25AM ; [facility] - M48.07 - Spinal stenosis, lumbosacral region - Last Documented On 05/30/2023 11:25AM ; [facility] Medical Equipment - Implanted Devices Includes: Current Devices No Medical Equipment Recorded Medications Includes: Medications discussed during this encounter and other current Medications Discontinued / Stopped on this date GLENNA MARQUEZ M.D. on 11/17/2022 Movantik 25 MG Oral Tablet Provider: Atul MARQUEZ M.D. Diagnosis: Drug induced con stipation Last Documented On 05/30/2023 11:18AM By SAI MARQUEZ MD ; [facility] New / Renewed during this visit GLENNA MARQUEZ M.D. on 05/30/2023 Lisinopril 20 MG Oral Tablet Provider: GLENNA MARQUEZ M.D. 90 day supply: 180 tablet, 0 refills Diagnosis: Essential (primary) hypertension One tablet twice a day Pharmacy: [address] [phone] - Last Documented On 07/10/2023 2:02PM By SAI MARQUEZ MD ; [facility] Current Medications (continue as prescribed) HYDROcodone-Acetaminophen 7. 5-325 MG Oral Tablet 09/11/2023 Provider: GLENNA MARQUEZ M.D. Diagnosis: Spinal stenosis, lumbosacral region Take one four times a day as needed Last Documented On 09/11/2023 10:36AM By SAI MARQUEZ MD ; [facility] Lisinopril 20 MG Oral Tablet 07/10/2023 Provider: GLENNA MARQUEZ M.D. Diagnosis: Essential (prima ry) hypertension TAKE 1 TABLET BY MOUTH TWICE DAILY Last Documented On 07/10/2023 3:00PM By SAI MARQUEZ MD ; [facility] Eliquis 5 MG Oral Tablet 07/10/2023 Provider: SAI MARQUEZ M.D. Diagnosis: Unspecified atri al fibrillation One tablet twice a day Last Documented On 07/10/2023 2:28PM By SAI MARQUEZ MD ; [facility] Naloxone HCl 4 MG/0.1ML Nasal Liquid 03/29/2023 Provider: GLENNA MARQUEZ M.D. Diagnosis: longterm (curre nt) use of opiate analgesic as directed 4 mg nasally as needed Last Documented On 03/29/2023 11:32AM By SAI MARQUEZ MD ; [facility] Pravastatin Sodium 20 MG Oral Tablet 03/29/2023 Provider: GLENNA MARQUEZ M.D. Diagnosis: Hyperlipidemia, unspecified TAKE 1 TABLET BY MOUTH DAILY Last Documented On 03/29/2023 1:37PM By SAI MARQUEZ MD ; [facility] Suspended Medications MiraLax 17 GM/SCOOP Oral Powder 02/22/2023 Provider: GLENNA MARQUEZ M.D. Diagnosis: as directed 1 to scops q day Last Documented On 02/22/2023 8:51AM By GUERDA Beavers LPN ; [facility] Medications Administered Includes: Administered Medications from [...] Last Documented: On 05/30/2023 11:05A M ; [facility] Results Includes: Results discussed during this encounter CBC WITH DIFF [facility] La boratory Ordered by GLENNA Coronel on 05/11/2023 [address] [facility], [place], [address] Collected: 05/26/2023 Report ed: 05/26/2023 11:17 tel: Last Documented On 4 12:04PM ; [facility] Reviewed by GLENNA MARQUEZ M.D. on 05/26/2023; All test results are final unless otherwise noted. ALC 1.2 None Last Documented On 4 11:58AM ; [facility] Note: Responsible Observer: (HRG) ANC 4.3 None Last Documented On 4 11:58AM ; [facility] Note: Responsible Observer: (HRG) BASO# 0.02 th/uL (0.00 - 0.20) None Last Documented On 4 11:58AM ; [facility] Note: Responsible Observer: (HRG) BASO% 0.3 % (0.0 - 2.0) None Last Documented On 4 11:58AM ; [facility] Note: Responsible Observer: (HRG) CBC WITH DIFF See Note None Last Documented On 4 11:58AM ; [facility] Note: CBC (COMPLETE BLOOD COUNT)Responsi ble Observer: (HRG) DIFF (Y/N) NO None Last Documented On 4 11:58AM ; [facility] Note: Responsible Observer: (HRG) EOS# 0.23 th/uL (0.00 - 0.45) None Last Documented On 4 11:58AM ; [facility] Note: Responsible Observer: (HRG) EOS% 3.6 % (0.0 - 9.0) None Last Documented On 4 11:58AM ; [facility] Note: Responsible Observer: (HRG) HCT 38.6 % (40.0 - 54.0) L (Low) Last Documented On 4 11:58AM ; [facility] Note: Responsible Observer: (HRG) HGB 12.9 g/dL (13.5 - 17.5) L (Low) Last Documented On 4 11:58AM ; [facility] Note: Responsible Observer: (HRG) IG# 0.04 th/ul (0.00 - 0.10) None Last Documented On 4 11:58AM ; [facility] Note: Responsible Observer: (HRG) IG% 0.6 % (0.0 - 0.5) H (High) Last Documented On 4 11:58AM ; [facility] Note: Responsible Observer: (HRG) LYMPH# 1.19 th/uL (1.00 - 4.80) None Last Documented On 4 11:58AM ; [facility] Note: Responsible Observer: (HRG) LYMPH% 18.7 % (14.0 - 45.0) None Last Documented On 4 11:58AM ; [facility] Note: Responsible Observer: (HRG) MCH 32.9 pg (25.0 - 35.0) None Last Documented On 4 11:58AM ; [facility] Note: Responsible Observer: (HRG) MCHC 33.4 g/dL (31.0 - 36.0) None Last Documented On 4 11:58AM ; [facility] Note: Responsible Observer: (HRG) MCV 98.5 fl (80.0 - 100) None Last Documented On 4 11:58AM ; [facility] Note: Responsible Observer: (HRG) MONO# 0.64 th/uL (0.00 - 0.80) None Last Documented On 4 11:58AM ; [facility] Note: Responsible Observer: (HRG) MONO% 10.1 % (1.0 - 10.0) H (High) Last Documented On 4 11:58AM ; [facility] Note: Responsible Observer: (HRG) MPV 12.7 fl (6.0 - 11.0) H (High) Last Documented On 4 11:58AM ; [facility] Note: Responsible Observer: (HRG) NEUT# 4.24 th/uL None Last Documented On 4 11:58AM ; [facility] Note: Responsible Observer: (HRG) NEUT% 66.7 % (45.0 - 76.0) None Last Documented On 4 11:58AM ; [facility] Note: Responsible Observer: (HRG) NRBC% 0.0 % (0.0 - 0.0) None Last Documented On 4 11:58AM ; [facility] Note: Responsible Observer: (HRG) PLT 141 th/uL (150 - 400) L (Low) Last Documented On 4 11:58AM ; [facility] Note: Responsible Observer: (HRG) RBC 3.92 mil/uL (4.50 - 5.90) L (Low) Last Documented On 4 11:58AM ; [facility] Note: Responsible Observer: (HRG) RDW 11.7 % (11.0 - 16.0) None Last Documented On 4 11:58AM ; [facility] Note: Responsible Observer: (HRG) WBC 6.4 th/uL (4.5 - 11.0) None Last Documented On 4 11:58AM ; [facility] Note: Responsible Observer: (HRG) BMP [facility] La boratory Ordered by GLENNA Coronel on 05/11/2023 [address] [facility], [place], [address] Collected: 05/26/2023 Report ed: 05/26/2023 11:34 tel: Last Documented On 4 12:04PM ; [facility] Reviewed by GLENNA MARQUEZ M.D. on 05/26/2023; All test results are final unless otherwise noted. AGE 78 YEARS None Last Documented On 4 11:58AM ; [facility] Note: Responsible Observer: (APR) ANION GAP 14.3 mmol/L (8.0 - 16.0) None Last Documented On 4 11:58AM ; [facility] Note: eGFR INTERPRETATION AGE AVG GFR [...] None Last Documented On 4 11:58AM ; [facility] Note: BASIC METABOLIC PANELResponsible O bserver: (APR) BUN 24 mg/dL (9 - 20) H (High) Last Documented On 4 11:58AM ; [facility] Note: Responsible Observer: (APR) CALCIUM 9.2 mg/dL (8.9 - 10.0) None Last Documented On 4 11:58AM ; [facility] Note: Responsible Observer: (APR) CHLORIDE 105 mmol/L (98 - 107) None Last Documented On 4 11:58AM ; [facility] Note: Responsible Observer: (APR) CREATININE 1.4 mg/dL (0.8 - 1.5) None Last Documented On 4 11:58AM ; [facility] Note: Responsible Observer: (APR) eGFR. 51 mL/min None Last Documented On 4 11:58AM ; [facility] Note: Responsible Observer: (APR) GLUCOSE 86 mg/dL (70 - 105) None Last Documented On 4 11:58AM ; [facility] Note: Responsible Observer: (APR) POTASSIUM 4.3 mmol/L (3.6 - 5.0) None Last Documented On 4 11:58AM ; [facility] Note: Responsible Observer: (APR) SODIUM 139 mmol/L (137 - 145) None Last Documented On 4 11:58AM ; [facility] Note: Responsible Observer: (APR) TCO2 24.0 mmol/L (22.0 - 30.0) None Last Documented On 4 11:58AM ; [facility] Note: Responsible Observer: (APR) [...] 12/09/2022 Last Documented On 4 11:01AM ; [facility] DME in home: 06/14/2022 Last Documented On 4 11:01AM ; [facility] DME in home: cane 06/14/2022 Last Documented On 4 11:01AM ; [facility] [PHQ-2] Patient Health Questionnaire 2 i tem total score: 17 (Scale: 0-6) 02/10/2021 Last Documented On 4 11:01AM ; [facility] Difficulty walking 02/10/2021 Last Documented On 4 11:01AM ; [facility] No consumption of alcohol 02/10/2021 Last Documented On 4 11:01AM ; [facility] Not using drugs 02/10/2021 Last Documented On 4 11:01AM ; [facility] Stopped smoking 40 years ago 12/23/2020 Last Documented On 4 11:01AM ; [facility] Current nonsmoker 07/10/2020 Last Documented On 4 11:01AM ; [facility] Former smoker Pt states he quit smoking over 50 yrs ago 07/10/2020 Last Documented On 4 11:01AM ; [facility] Feeling down, depressed, or hopeless in the last 2 weeks? 0 pt Not at all 07/01/2020 Last Documented On 4 11:01AM ; [facility] Lost interest or pleasure in doing thing s was 0 Not at all 07/01/2020 Last Documented On 4 11:01AM ; [facility] Not using alcohol 07/01/2020 Last Documented On 4 11:01AM ; [facility] Non-smoker 11/06/2019 Last Documented On 4 11:01AM ; [facility] No tobacco use prev hx of 50 pack years smoking at young age 0105/08/2019 Last Documented On 4 11:01AM ; [facility] Not using alcohol 11/03/2017 Last Documented On 4 11:01AM ; [facility] Smoking status : Former smoker 8 Last Documented On 4 11:01AM ; [facility] Lives alone 07/23/2012 Last Documented On 4 11:01AM ; [facility] Caffeine use 09/28/2011 Last Documented On 4 11:01AM ; [facility] Single 09/21/2011 Last Documented On 4 11:01AM ; [facility] Retired from work 07/07/2011 Last Documented On 4 11:01AM ; [facility] Abnormal diet TRY TO EAT HARDLY ANY RED MEAT. EAT FISH,VEGETABLES, ETC 08/25/2010 Last Documented On 4 11:01AM ; [facility] Exercise frequency BIKE RIDE 1/2 HR, WA LK 1/2 HR, WEIGHTS 1/2 HR 08/25/2010 Last Documented On 4 11:01AM ; [facility] Occupation [employer] 200608/25/2010 Last Documented On 4 11:01AM ; [facility] Procedures and Surgical History Includes: Procedures from this encounter Procedures Code Diagnosis Performing Provider Service L ocation Service Date use of tobacco assessment performed 1000F Last Documented On 4 11:06AM ; [facility] review of medications documented 1160F Last Documented On 4 11:06AM ; [facility] Surgical History Last Updated No Pacemaker 02/10/2021 Last Documented On 4 11:01AM ; [facility] History of prostate surgery 09/2009 Last Documented On 4 11:01AM ; [facility] Medical History Includes: Medical History addressed during this encounter Description Last Updated Vaccine history 05/30/2023 Last Documented On 4 11:25AM ; [facility] Diastolic blood pressure 85 mmHg 023 Last Documented On 4 11:01AM ; [facility] Systolic blood pressure 150 mmHg 023 Last Documented On 4 11:01AM ; [facility] No diagnosis of history of chronic obstr uctive pulmonary disease 12/09/2022 Last Documented On 4 11:01AM ; [facility] No diagnosis of history of diabetes fozia itus 12/09/2022 Last Documented On 4 11:01AM ; [facility] No history of Congestive Heart Failure 0 12/09/2022 Last Documented On 4 11:01AM ; [facility] Surgery prostate and bladder surgery 04/2022 Last Documented On 4 11:01AM ; [facility] Please list all illnesses/co nditions you have been diagnosed with: Cancer. Prostate and Bladder 02/10/2021 Last Documented On 4 11:01AM ; [facility] Back brace 02/10/2021 Last Documented On 4 11:01AM ; [facility] Currently wearing eyeglasses 02/10/2021 Last Documented On 4 11:01AM ; [facility] No Pain Pump 02/10/2021 Last Documented On 4 11:01AM ; [facility] No Spinal cord stimulator 02/10/2021 Last Documented On 4 11:01AM ; [facility] Please list all surgeries: Prostrate marilu e 2009. bladder. dec 2013 02/10/2021 Last Documented On 4 11:01AM ; [facility] Severe Pain 02/10/2021 Last Documented On 4 11:01AM ; [facility] Uses a cane for support 02/10/2021 Last Documented On 4 11:01AM ; [facility] No Contact with and (Suspected) exposure to COVID-19 07/01/2020 Last Documented On 4 11:01AM ; [facility] No fall 07/01/2020 Last Documented On 4 11:01AM ; [facility] Not using Opioids 07/01/2020 Last Documented On 4 11:01AM ; [facility] Denies a fear of falling. 05/08/2019 Last Documented On 4 11:01AM ; [facility] Has had no fall in the last 12 months. 0 05/08/2019 Last Documented On 4 11:01AM ; [facility] Medication compliance 07/23/2012 Last Documented On 4 11:01AM ; [facility] Taking medication 09/28/2011 Last Documented On 4 11:01AM ; [facility] Prostate Ca, SP Prostatectomy ~ Urology Dr Charlton 07/07/2011 Last Documented On 4 11:01AM ; [facility] History of essential hypertension 2011 Last Documented On 4 11:01AM ; [facility] History of hyperlipidemia 07/07/2011 Last Documented On 4 11:01AM ; [facility] History of hypertension 08/25/2010 Last Documented On 4 11:01AM ; [facility] Family History Includes: Family History addressed during this encounter Description Last Updated Family history of Cancer Breast Cancer 0 12/09/2022 Last Documented On 4 11:01AM ; [facility] Not using Opioids 12/09/2022 Last Documented On 4 11:01AM ; [facility] Fraternal history of family history of i schemic heart disease 02/10/2021 Last Documented On 4 11:01AM ; [facility] Fraternal history of coronary artery dis ease 08/04/2017 Last Documented On 4 11:01AM ; [facility] Family history reviewed - unchanged sin e last visit 11/06/2015 Last Documented On 4 11:01AM ; [facility] Fraternal history of cancer 04/29/2015 Last Documented On 4 11:01AM ; [facility] Fraternal history of heart disease 04/29 Last Documented On 4 11:01AM ; [facility] Maternal history of cancer 04/29/2015 Last Documented On 4 11:01AM ; [facility] Family history of cancer 07/07/2011 Last Documented On 4 11:01AM ; [facility] Family history of coronary artery diseas e 07/07/2011 Last Documented On 4 11:01AM ; [facility] Brother 69 years old [place] [place] 8 YEARS AGO 08/25/2010 Last Documented On 4 11:01AM ; [facility] Father 1985 AT AGE 74- PUMA GEHRIG'S TYPE DISEASE 08/25/2010 Last Documented On 4 11:01AM ; [facility] Heart disease 08/25/2010 Last Documented On 4 11:01AM ; [facility] Mother 1995 AT AGE 72- BREAST CANCER 08/25/2010 Last Documented On 4 11:01AM ; [facility] Review of Systems [...] Active Last Documented On 4 10:45AM ; [facility] Allergy 12/22/2015 Active Last Documented On 4 10:45AM ; [facility] Encounters Encounter [...] Dates 1 - MEDICARE PART A CLAIMS/NGS [id number] [facility] 2 - [facility] OPTIONS [id number] [facility] Clinical Notes Includes: Clinical Notes from this encounter * Progress note Date Encounter Last Documented by 05/30/2023 CHECK UP Last documented on 05/30/2023; 11:25 AM, GLENNA MARQUEZ M.D.; [facility] Active Problems & Conditions [...] Work: Retired from work and occupation [employer]-RET[employer] 2006. Marital: Single. Functional: Feeling down, depressed, [...]
--- OUTSIDE RECORDS SUMMARY | 2024-08-05 13:10 | XMS_ITS | Clinical Summary ---
Author Organization [facility] Address [address] [place] [address] Phone Care Team Providers Care Human Relations Manager Name Role Phone JIMMY PRICE, SAI Primary Care Provider [phone] JIMMY Andrews, GLENNA Macias Unavailable [phone] Reason for Visit and Chief Complaint CAROTID ULTRASOUND Problems Includes: Problems addressed during this encounter and other active Problems All Visits Onset Date Resolved Date Provider Condition S tatus Chronic Renal Failure 06/14/2022 MEGAN MARQUEZ M.D. Active Last Documented On 06/14/2022 11:26AM ; [facility] Note: Unchanged Constipation Drug-induced 02/18/2022 GLENNA MARQUEZ M.D. Active Last Documented On 02/18/2022 11:15AM ; [facility] Note: Unchanged Spinal Stenosis Lumbosacral 05/20/2021 GLENNA MARQUEZ M.D. Active Last Documented On 2 10:56AM ; [facility] Atrial Fibrillation 03/02/2021 GLENNA MARQUEZ M.D. Active Last Documented On 1 11:51AM ; [facility] Note: Unchanged Hyperlipidemia 08/04/2017 GLENNA MARQUEZ M.D. Active Last Documented On 8 10:00AM ; [facility] Note: Unchanged Esophageal Reflux 05/25/2012 GLENNA June Active Last Documented On 4 9:40AM ; [facility] Essential Hypertension 08/25/2010 GLENNA WHEELER M.D. Active Last Documented On 4 9:40AM ; [facility] Plan of [...] By SAI MARQUEZ MD ; [facility] Lisinopril 20 MG Oral Tablet 07/10/2023 Provider: GLENNA MARQUZE M.D. Diagnosis: Essential (prima ry) hypertension TAKE 1 TABLET BY MOUTH TWICE DAILY Last Documented On 07/10/2023 3:00PM By SAI MARQUEZ MD ; [facility] Eliquis 5 MG Oral Tablet 07/10/2023 Provider: SAI MARQUEZ M.D. Diagnosis: Unspecified atri al fibrillation One tablet twice a day Last Documented On 07/10/2023 2:28PM By SAI MARQUEZ MD ; [facility] Naloxone HCl 4 MG/0.1ML Nasal Liquid 03/29/2023 Provider: GLENNA MARQUEZ M.D. Diagnosis: correction (curre nt) use of opiate analgesic as directed 4 mg nasally as needed Last Documented On 03/29/2023 11:32AM By SAI MARQUEZ MD ; [facility] Pravastatin Sodium 20 MG Oral Tablet 03/29/2023 Provider: GLENNA MARQUEZ M.D. Diagnosis: Hyperlipidemia, unspecified TAKE 1 TABLET BY MOUTH DAILY Last Documented On 03/29/2023 1:37PM By SAI MARQUEZ MD ; [facility] Suspended Medications MiraLax 17 GM/SCOOP Oral Powder 02/22/2023 Provider: GLENNA MARQUEZ M.D. Diagnosis: as directed 1 to scops q day Last Documented On 02/22/2023 8:51AM By GUERDA Beavers LPN ; [facility] Medications Administered Includes: Administered [...] OF EXTRACRANIAL ARTERIES; COMP BRAXTON (Professional Comp.) 41687 Occlusion and stenosis of bilateral carotid arteries ANNAMARIA JONES MD [facility] 09/18/2023 Last Documented On 4 10:18AM ; [facility] Medical History Includes: Medical History addressed during [...] Documented On 4 10:45AM ; [facility] Allergy 12/22/2015 Active Last Documented On 4 10:45AM ; [facility] Encounters Encounter Provider Location Date Check-In Time Check-Out Time Diagnosis CAROTID ULTRASOUND ANNAMARIA JONES MD [facility] 09/18/19 24 10:41AM 11:28AM Insurance Includes: Active Insurance Policies Plan Name Member ID Group # Subscriber Relationship Effect shannon Dates 1 - MEDICARE PART A CLAIMS/NGS [id number] MARIANNA Salas 2 - [facility] OPTIONS [id number] MARIANNA Salas Clinical Notes Includes: Clinical Notes from this encounter No Clinical Notes Recorded
--- OUTSIDE RECORDS SUMMARY | 2024-08-05 13:11 | XMS_ITS | Clinical Summary ---
Author Organization [facility] Address [address] [place] [address] Phone Care Team Providers Care Medical Management Trainer Name Role Phone JIMMY PRICE, SAI Primary Care Provider [phone] JIMMY Andrews, GLENNA Macias Unavailable [phone] Reason for Visit and Chief Complaint [facility] CENTER CHECK UP Problems Includes: Problems addressed during this encounter and other active Problems All Visits Onset Date Resolved Date Provider Condition S tatus Chronic Renal Failure 06/14/2022 MEGAN MARQUEZ M.D. Active Last Documented On 06/14/2022 11:26AM ; [facility] Note: Unchanged Constipation Drug-induced 02/18/2022 GLENNA MARQUEZ M.D. Active Last Documented On 02/18/2022 11:15AM ; [facility] Note: Unchanged Spinal Stenosis Lumbosacral 05/20/2021 GLENNA MARQUEZ M.D. Active Last Documented On 2 10:56AM ; [facility] Atrial Fibrillation 03/02/2021 GLENNA MARQUEZ M.D. Active Last Documented On 1 11:51AM ; [facility] Note: Unchanged Hyperlipidemia 08/04/2017 GLENNA MARQUEZ M.D. Active Last Documented On 8 10:00AM ; [facility] Note: Unchanged Esophageal Reflux 05/25/2012 GLENNA June Active Last Documented On 4 9:40AM ; [facility] Essential Hypertension 08/25/2010 GLENNA WHEELER M.D. Active Last Documented On 4 9:40AM ; [facility] Plan of Treatment No [...] 09/11/2023 10:36AM By SAI MARQUEZ MD ; [facility] Lisinopril 20 MG Oral Tablet 07/10/2023 Provider: GLENNA MARQUEZ M.D. Diagnosis: Essential (prima ry) hypertension TAKE 1 TABLET BY MOUTH TWICE DAILY Last Documented On 07/10/2023 3:00PM By SAI MARQUEZ MD ; [facility] Eliquis 5 MG Oral Tablet 07/10/2023 Provider: SAI MARQUEZ M.D. Diagnosis: Unspecified atri al fibrillation One tablet twice a day Last Documented On 07/10/2023 2:28PM By SAI MARQUEZ MD ; [facility] Naloxone HCl 4 MG/0.1ML Nasal Liquid 03/29/2023 Provider: GLENNA MARQUEZ M.D. Diagnosis: detention (curre nt) use of opiate analgesic as directed 4 mg nasally as needed Last Documented On 03/29/2023 11:32AM By SAI MARQUEZ MD ; [facility] Pravastatin Sodium 20 MG Oral Tablet 03/29/2023 Provider: GLENNA MARQUEZ M.D. Diagnosis: Hyperlipidemia, unspecified TAKE 1 TABLET BY MOUTH DAILY Last Documented On 03/29/2023 1:37PM By SAI MARQUEZ MD ; [facility] Suspended Medications MiraLax 17 GM/SCOOP Oral Powder 02/22/2023 Provider: GLENNA MARQUEZ M.D. Diagnosis: as directed 1 to scops q day Last Documented On 02/22/2023 8:51AM By GUERDA Beavers LPN ; [facility] Medications Administered [...] Active Last Documented On 4 10:45AM ; [facility] Allergy 12/22/2015 Active Last Documented On 4 10:45AM ; [facility] Encounters Encounter Provider Location Date Check-In Time Check- Out Time Diagnosis HEART CENTER CHECK UP CALOS JONES MD [facility] 4 11:30AM 11:53AM Insurance Includes: Active Insurance Policies Plan Name Member ID Group # Subscriber Relationship Effect shannon Dates 1 - MEDICARE PART A CLAIMS/NGS [id number] MARIANNA Salas 2 - [facility] OPTIONS [id number] MARIANNA Salas Clinical Notes Includes: Clinical Notes from this encounter No Clinical Notes Recorded
--- OUTSIDE RECORDS SUMMARY | 2024-08-05 13:11 | XMS_ITS ---
Care Plan - [facility] Created on: August 05, 2024 DRAKE MARIANNA Rivero : 1945 Sex: Male Author Organization [facility] Address [address] [place] [address] Phone Care Team Providers Care Shared Services Manager Name Role Phone JIMMY PRICE, SAI Primary Care Provider [phone] JIMMY Andrews, GLENNA Macias Unavailable [phone]
--- OUTSIDE RECORDS SUMMARY | 2024-08-05 13:11 | XMS_ITS | Clinical Summary ---
Author Organization [facility] Address [address] [place] [address] Phone Care Team Providers Care Bailiff Name Role Phone JIMMY PRICE, SAI Primary Care Provider [phone] JIMMY Andrews, GLENNA Macias Unavailable [phone] Reason for Visit and Chief Complaint ECHOCARDIOGRAM Problems Includes: Problems addressed during this encounter and other active Problems All Visits Onset Date Resolved Date Provider Condition S tatus Chronic Renal Failure 06/14/2022 MEGAN MARQUEZ M.D. Active Last Documented On 06/14/2022 11:26AM ; [facility] Note: Unchanged Constipation Drug-induced 02/18/2022 GLENNA MARQUEZ M.D. Active Last Documented On 02/18/2022 11:15AM ; [facility] Note: Unchanged Spinal Stenosis Lumbosacral 05/20/2021 GLENNA MARQUEZ M.D. Active Last Documented On 2 10:56AM ; [facility] Atrial Fibrillation 03/02/2021 GLENNA MARQUEZ M.D. Active Last Documented On 1 11:51AM ; [facility] Note: Unchanged Hyperlipidemia 08/04/2017 GLENNA MARQUEZ M.D. Active Last Documented On 8 10:00AM ; [facility] Note: Unchanged Esophageal Reflux 05/25/2012 GLENNA June Active Last Documented On 4 9:40AM ; [facility] Essential Hypertension 08/25/2010 GLENNA WHEELER M.D. Active Last Documented On 4 9:40AM ; [facility] [...] 09/11/2023 10:36AM By SAI MARQUEZ MD ; [facility] Lisinopril 20 MG Oral Tablet 07/10/2023 Provider: GLENNA MARQUEZ M.D. Diagnosis: Essential (prima ry) hypertension TAKE 1 TABLET BY MOUTH TWICE DAILY Last Documented On 07/10/2023 3:00PM By SAI MARQUEZ MD ; [facility] Eliquis 5 MG Oral Tablet 07/10/2023 Provider: SAI MARQUEZ M.D. Diagnosis: Unspecified atri al fibrillation One tablet twice a day Last Documented On 07/10/2023 2:28PM By SAI MARQUEZ MD ; [facility] Naloxone HCl 4 MG/0.1ML Nasal Liquid 03/29/2023 Provider: GLENNA MARQUEZ M.D. 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 Diagnosis: Hyperlipidemia, unspecified TAKE 1 TABLET BY MOUTH DAILY Last Documented On 03/29/2023 1:37PM By SAI MARQUEZ MD ; [facility] Suspended Medications MiraLax 17 GM/SCOOP Oral Powder 02/22/2023 Provider: GLENNA MARQUEZ M.D. Diagnosis: as directed 1 to scops q day Last Documented On 02/22/2023 8:51AM By GUERDA Beavers LPN ; [facility] Medications Administered Includes: Administered [...] Date ECHOCARDIOGRAPHY- TRANSTHORAC W/ DOPPLER (Professional Comp.) 10812 Other persistent atrial fibrillation, Essential (primary) hypertension, Mixed hyperlipidemia, Rheumatic disorders of both mitral and tricuspid valves CALOS JONES MD [facility]- 08/25/2023 Last Documented On 4 1:23PM ; [facility] ELECTROCARDIAGRAM READING FEE (EKG) (DISTINCT PROCEDURAL SERVICE DIFFERENT SITE) 07702 Other persistent atrial fibrillation, Essential (primary) hypertension [...] Dates 1 - MEDICARE PART A CLAIMS/NGS [id number] MARIANNA Salas 2 - [facility] OPTIONS [id number] MARIANNA Salas Clinical Notes Includes: Clinical Notes from this encounter No Clinical Notes Recorded
--- OUTSIDE RECORDS SUMMARY | 2024-08-05 13:11 | XMS_ITS | Clinical Summary ---
Author Organization [facility] Address [address] [place] [address] Phone Care Team Providers Care Strategic Advisor Name Role Phone JIMMY PRICE, SAI Primary Care Provider [phone] JIMMY Andrews, GLENNA Macias Unavailable [phone] Reason for Visit and Chief Complaint visit [...] Active Last Documented On 06/14/2022 11:26AM ; [facility] Note: Unchanged Constipation Drug-induced 02/18/2022 GLENNA MARQUEZ M.D. Active Last Documented On 02/18/2022 11:15AM ; [facility] Note: Unchanged Spinal Stenosis Lumbosacral 05/20/2021 GLENNA MARQUEZ M.D. Active Last Documented On 2 10:56AM ; [facility] Atrial Fibrillation 03/02/2021 GLENNA MARQUEZ M.D. Active Last Documented On 1 11:51AM ; [facility] Note: Unchanged Hyperlipidemia 08/04/2017 GLENNA MARQUEZ M.D. Active Last Documented On 8 10:00AM ; [facility] Note: Unchanged Esophageal Reflux 05/25/2012 GLENNA June Active Last Documented On 4 9:40AM ; [facility] Hyperlipidemia 08/25/2010 GLENNA MARQUEZ M.D. Inactive Last Documented On 5 10:50AM ; [facility] Essential Hypertension 08/25/2010 GLENNA Vieira.DJun Active Last Documented On 4 9:40AM ; [facility] Plan of Treatment - Return to the clinic if condition worsens or new symptoms arise - Last Documented On 08/28/2023 11:24AM ; [facility] - Continue current medication - Last Documented On 08/28/2023 11:24AM ; [facility] - Patient to call if problem develops - Last Documented On 08/28/2023 11:24AM ; [facility] Education and Decision Aids were provided during visit for: Education and counseling Adv ice to have regular exercise regimen Last Documented On 11:19AM ; [facility] Assessments Includes: Assessments from this encounter Findings - I48.91 - Unspecified atrial fibrillation - Last Documented On 08/28/2023 11:24AM ; [facility] - I10 - Essential (primary) hypertension - Last Documented On 08/28/2023 11:24AM ; [facility] - K21.9 - Gastro-esophageal reflux disease without esophagitis - Last Documented On 08/28/2023 11:24AM ; [facility] - K59.03 - Drug induced constipation - Last Documented On 08/28/2023 11:24AM ; [facility] - N18.9 - Chronic kidney disease, unspecified - Last Documented On 08/28/2023 11:24AM ; [facility] - E78.5 - Hyperlipidemia, unspecified - Last Documented On 08/28/2023 11:24AM ; [facility] - M48.07 - Spinal stenosis, lumbosacral region - Last Documented On 08/28/2023 11:24AM ; [facility] Instructions Includes: Instructions from this encounter Education and Decision Aids were provided during visit for: Education and counseling Adv ice to have regular exercise regimen Last Documented On 11:19AM ; [facility] Medical Equipment - Implanted Devices Includes: Current Devices No Medical Equipment Recorded Medications Includes: Medications discussed during this encounter and other current Medications Discontinued / Stopped on this date GLENNA MARQUEZ M.D. on 12/20/2022 Lisinopril 10 MG Oral Tablet Provider: GLENNA MARQUEZ M.D. Diagnosis: Essential (prima ry) hypertension Last Documented On 08/28/2023 11:06AM By SAI MARQUEZ MD ; [facility] Current Medications (continue as prescribed) HYDROcodone-Acetaminophen 7. 5-325 MG Oral Tablet 09/11/2023 Provider: GLENNA MARQUEZ M.D. Diagnosis: Spinal stenosis, lumbosacral region Take one four times a day as needed Last Documented On 09/11/2023 10:36AM By SAI MARQUEZ MD ; [facility] Lisinopril 20 MG Oral Tablet 07/10/2023 Provider: GLENNA MARQUEZ M.D. Diagnosis: Essential (prima ry) hypertension TAKE 1 TABLET BY MOUTH TWICE DAILY Last Documented On 07/10/2023 3:00PM By SAI MARQUEZ MD ; [facility] Eliquis 5 MG Oral Tablet 07/10/2023 Provider: SAI MARQUEZ M.D. Diagnosis: Unspecified atri al fibrillation One tablet twice a day Last Documented On 07/10/2023 2:28PM By SAI MARQUEZ MD ; [facility] Naloxone HCl 4 MG/0.1ML Nasal Liquid 03/29/2023 Provider: GLENNA MARQUEZ M.D. Diagnosis: MCC (curre nt) use of opiate analgesic as directed 4 mg nasally as needed Last Documented On 03/29/2023 11:32AM By SAI MARQUEZ MD ; [facility] Pravastatin Sodium 20 MG Oral Tablet 03/29/2023 Provider: GLENNA MARQUEZ M.D. Diagnosis: Hyperlipidemia, unspecified TAKE 1 TABLET BY MOUTH DAILY Last Documented On 03/29/2023 1:37PM By SAI MARQUEZ MD ; [facility] Suspended Medications MiraLax 17 GM/SCOOP Oral Powder 02/22/2023 Provider: GLENNA MARQUEZ M.D. Diagnosis: as directed 1 to scops q day Last Documented On 02/22/2023 8:51AM By GUERDA Beavers LPN ; [facility] Medications Administered Includes: Administered [...] Last Documented: On 08/28/2023 10:50A M ; [facility] Results Includes: Results discussed [...] 12/09/2022 Last Documented On 4 10:45AM ; [facility] DME in home: 06/14/2022 Last Documented On 4 10:45AM ; [facility] DME in home: cane 06/14/2022 Last Documented On 4 10:45AM ; [facility] [PHQ-2] Patient Health Questionnaire 2 i tem total score: 17 (Scale: 0-6) 02/10/2021 Last Documented On 4 10:45AM ; [facility] Difficulty walking 02/10/2021 Last Documented On 4 10:45AM ; [facility] No consumption of alcohol 02/10/2021 Last Documented On 4 10:45AM ; [facility] Not using drugs 02/10/2021 Last Documented On 4 10:45AM ; [facility] Stopped smoking 40 years ago 12/23/2020 Last Documented On 4 10:45AM ; [facility] Current nonsmoker 07/10/2020 Last Documented On 4 10:45AM ; [facility] Former smoker Pt states he quit smoking over 50 yrs ago 07/10/2020 Last Documented On 4 10:45AM ; [facility] Feeling down, depressed, or hopeless in the last 2 weeks? 0 pt Not at all 07/01/2020 Last Documented On 4 10:45AM ; [facility] Lost interest or pleasure in doing thing s was 0 Not at all 07/01/2020 Last Documented On 4 10:45AM ; [facility] Not using alcohol 07/01/2020 Last Documented On 4 10:45AM ; [facility] Non-smoker 11/06/2019 Last Documented On 4 10:45AM ; [facility] No tobacco use prev hx of 50 pack years smoking at young age 0105/08/2019 Last Documented On 4 10:45AM ; [facility] Not using alcohol 11/03/2017 Last Documented On 4 10:45AM ; [facility] Smoking status : Former smoker 8 Last Documented On 4 10:45AM ; [facility] Lives alone 07/23/2012 Last Documented On 4 10:45AM ; [facility] Caffeine use 09/28/2011 Last Documented On 4 10:45AM ; [facility] Single 09/21/2011 Last Documented On 4 10:45AM ; [facility] Retired from work 07/07/2011 Last Documented On 4 10:45AM ; [facility] Abnormal diet TRY TO EAT HARDLY ANY RED MEAT. EAT FISH,VEGETABLES, ETC 08/25/2010 Last Documented On 4 10:45AM ; [facility] Exercise frequency BIKE RIDE 1/2 HR, WAL K 1/2 HR, WEIGHTS 1/2 HR 08/25/2010 Last Documented On 4 10:45AM ; [facility] Occupation [employer]RETIRED 200608/25/2010 Last Documented On 4 10:45AM ; [facility] Procedures and Surgical History Includes: Procedures from this encounter Procedures Code Diagnosis Performing Provider Service L ocation Service Date use of tobacco assessment performed 1000F Last Documented On 4 10:50AM ; [facility] review of medications documented 1160F Last Documented On 4 10:50AM ; [facility] Surgical History Last Updated No Pacemaker 02/10/2021 Last Documented On 4 10:45AM ; [facility] History of prostate surgery 09/2009 Last Documented On 4 10:45AM ; [facility] Medical History Includes: Medical History addressed during this encounter Description Last Updated Vaccine history 05/30/2023 Last Documented On 4 10:45AM ; [facility] No diagnosis of history of chronic obstr uctive pulmonary disease 12/09/2022 Last Documented On 4 10:45AM ; [facility] No diagnosis of history of diabetes fozia itus 12/09/2022 Last Documented On 4 10:45AM ; [facility] No history of Congestive Heart Failure 0 12/09/2022 Last Documented On 4 10:45AM ; [facility] Surgery prostate and bladder surgery 04/2022 Last Documented On 4 10:45AM ; [facility] Please list all illnesses/co nditions you have been diagnosed with: Cancer. Prostate and Bladder 02/10/2021 Last Documented On 4 10:45AM ; [facility] Back brace 02/10/2021 Last Documented On 4 10:45AM ; [facility] Currently wearing eyeglasses 02/10/2021 Last Documented On 4 10:45AM ; [facility] No Pain Pump 02/10/2021 Last Documented On 4 10:45AM ; [facility] No Spinal cord stimulator 02/10/2021 Last Documented On 4 10:45AM ; [facility] Please list all surgeries: Prostrate marilu e 2009. bladder. sept 201302/10/2021 Last Documented On 4 10:45AM ; [facility] Severe Pain 02/10/2021 Last Documented On 4 10:45AM ; [facility] Uses a cane for support 02/10/2021 Last Documented On 4 10:45AM ; [facility] No Contact with and (Suspected) exposure to COVID-19 07/01/2020 Last Documented On 4 10:45AM ; [facility] No fall 07/01/2020 Last Documented On 4 10:45AM ; [facility] Not using Opioids 07/01/2020 Last Documented On 4 10:45AM ; [facility] Denies a fear of falling. 05/08/2019 Last Documented On 4 10:45AM ; [facility] Has had no fall in the last 12 months. 0 05/08/2019 Last Documented On 4 10:45AM ; [facility] Medication compliance 07/23/2012 Last Documented On 4 10:45AM ; [facility] Taking medication 09/28/2011 Last Documented On 4 10:45AM ; [facility] Prostate Ca, SP Prostatectomy ~ Urology Dr Charlton 07/07/2011 Last Documented On 4 10:45AM ; [facility] History of essential hypertension 2011 Last Documented On 4 10:45AM ; [facility] History of hyperlipidemia 07/07/2011 Last Documented On 4 10:45AM ; [facility] History of hypertension 08/25/2010 Last Documented On 4 10:45AM ; [facility] Family History Includes: Family History addressed during this encounter Description Last Updated Family history of Cancer Breast Cancer 0 12/09/2022 Last Documented On 4 10:45AM ; [facility] Not using Opioids 12/09/2022 Last Documented On 4 10:45AM ; [facility] Fraternal history of family history of i schemic heart disease 02/10/2021 Last Documented On 4 10:45AM ; [facility] Fraternal history of coronary artery dis ease 08/04/2017 Last Documented On 4 10:45AM ; [facility] Family history reviewed - unchanged [facility] e last visit 11/06/2015 Last Documented On 4 10:45AM ; [facility] Fraternal history of cancer 04/29/2015 Last Documented On 4 10:45AM ; [facility] Fraternal history of heart disease 04/29 Last Documented On 4 10:45AM ; [facility] Maternal history of cancer 04/29/2015 Last Documented On 4 10:45AM ; [facility] Family history of cancer 07/07/2011 Last Documented On 4 10:45AM ; [facility] Family history of coronary artery diseas e 07/07/2011 Last Documented On 4 10:45AM ; [facility] Brother 69 years old [place] 8 YEARS AGO 08/25/2010 Last Documented On 4 10:45AM ; [facility] Father 1985 AT AGE 74- PUMA GEHRIG'S TYPE DISEASE 08/25/2010 Last Documented On 4 10:45AM ; [facility] Heart disease 08/25/2010 Last Documented On 4 10:45AM ; [facility] Mother 1995 AT AGE 72- BREAST CANCER 08/25/2010 Last Documented On 4 10:45AM ; [facility] Review of Systems Includes: Review of [...] Active Last Documented On 4 10:45AM ; [facility] Allergy 12/22/2015 Active Last Documented On 4 10:45AM ; [facility] Encounters Encounter Provider Location Date Check-In Time Check-Out Time Diagnosis CHECK UP GLENNA MARQUEZ M.D. [facility] 08/28/19 24 10:42AM 11:19AM Essential Hypertension, Esophageal Reflux,Hyperl ipidemia,Atri al Fibrillation, Spinal Stenosis Lumbosacral,C onstipation Drug-induced, Chronic Renal Failure Insurance Includes: Active Insurance Policies Plan Name Member ID Group # Subscriber Relationship Effect shannon Dates 1 - MEDICARE PART A CLAIMS/NGS [id number] MARIANNA JUAN Self 2 - [facility] OPTIONS [id number] MARIANNA JUAN Self Clinical Notes Includes: Clinical Notes from this encounter * Progress note Date Encounter Last Documented by 08/28/2023 CHECK UP Last documented on 08/28/2023; 11:24 AM, GLENNA MARQUEZ M.D.; [facility] Active Problems & Conditions - I48.91 - [...]
== END 2024-08-05 11:12 | disposition home or self-care (01) ==
LOC: CHSLAB 11:13 → CHSIMG 11:17
PROVIDERS: PCP Family Medicine; Visit Provider Family Medicine
DX: M79.89 Other specified soft tissue disorders (principal); M19.011 Primary osteoarthritis, right shoulder; R91.8 Other nonspecific abnormal finding of lung field
CPT/HCPCS: 73030; 73060

== ENCOUNTER 2024-08-14 11:51 | Outpatient (CLI) | payer MEDICARE, SELFPAY ==
--- NOTE | ~2024-08-14 | XR_ITS ---
XR abdomen obstructive series Ordering provider: Kyle Soares MD History: . constipation, abnormal bowel movements . Comparison: None. FINDINGS: BOWEL: Slightly distended colon with gases. Air-fluid level is seen in multiple areas which may indic ate early or partial obstruction. Diarrhea is also possible. Follow-up advised. ORGANOMEGALY: None. SIGNIFICANT PATHOLOGIC CALCIFICATIONS: None. OTHER: No free air is seen under the diaphragm. IMPRESSION: Slightly dilated large bowel loops with air-fluid levels. Partial or early obstruction cannot be excl uded. Follow-up advised. Reviewed, dictated and finalized at location A. IMPRESSION: Slightly dilated large bowel loops with air-fluid levels. Partial or early obst ruction cannot be excluded. Follow-up advised.
[2024-08-17 21:38] LABS: S cerevisiae Ab (IgA) 6.2 U (<=20.0); S cerevisiae Ab (IgG) 5.6 U (<=20.0)
[2024-08-18 00:48] LABS: Myeloperoxidase Ab <1.0 AI (<1.0); Proteinase-3 Ab <1.0 AI (<1.0)
[2024-08-20 10:54] LABS: ANCA Screen Negative (Negative)
== END 2024-08-14 11:52 | disposition home or self-care (01) ==
LOC: CHSLAB 11:53
PROVIDERS: PCP Family Medicine; Visit Provider Family Medicine
DX: K59.00 Constipation, unspecified (principal); R19.5 Other fecal abnormalities
CPT/HCPCS: 36415; 74019; 86036; 86671

== ENCOUNTER 2024-09-24 09:11 | Outpatient (CLI) | payer MEDICARE, SELFPAY ==
[2024-09-24 09:42] LABS: Anion Gap 6 mmol/L (4-12); Blood Urea Nitrogen 22 mg/dL (9-20); Calcium 8.7 mg/dL (8.4-10.2); Carbon Dioxide 29 mmol/L (22-30); Chloride 100 mmol/L (98-107); Estimated Glomerular Filt Rate > 60; Glucose 111 mg/dL (65-110); Osmolality Calculated 284 mOsm/kg (285-295); Potassium 3.4 mmol/L (3.4-5.0); Sodium 135 mmol/L (137-145)
[2024-09-25 09:46] LABS: Alanine Aminotransferase 19 U/L (6-50); Albumin Level 3.9 g/dL (3.5-5.1); Alkaline Phosphatase 89 U/L (38-126); Aspartate Amino Transferase 24 U/L (17-59); Bilirubin Direct < 0.1 mg/dL (0-0.3); Bilirubin,Total 1.1 mg/dL (0.2-1.3); Total Protein 6.5 g/dL (6.3-8.2)
== END 2024-09-24 09:12 | disposition home or self-care (01) ==
LOC: CHSLAB 09:13
PROVIDERS: PCP Family Medicine; Visit Provider Family Medicine
DX: N17.9 Acute kidney failure, unspecified (principal); R60.0 Localized edema
CPT/HCPCS: 36415; 80048; 80076; 84443

== ENCOUNTER 2024-09-26 10:35 | Outpatient (CLI) | payer MEDICARE, SELFPAY ==
--- OUTSIDE RECORDS SUMMARY | 2024-09-26 11:21 | XMS_ITS | Clinical Summary ---
Author Organization [facility] Address [address] [place] [id number] Care Team Providers Care Direct Support Professional Caregiver Name Role Phone Mel Solitario MD Primary Care Provider [phone] Encounters Date Type Department Care Team Description 08/16/2024 1:00 PM CDT - 08/16/2024 11:59 PM CDT Hospital Encounter [facility] [address] [facility] [place] [address] Mel Solitario MD Discharge Disposition: Home or Self Care (Routine Discharge) 08/16/2024 Travel from Last 3 Months Social History Tobacco Use Types Packs/Day Years Used Date Smoking Tobacco: Never Assessed Sex and Gender Information Value Date Recorded Sex Assigned at Male 08/16/2024 1:09 PM CDT Legal Sex Male 9:16 AM CDT Gender Identity Not on file Sexual Orientation Not on file Plan of Treatment Health Maintenance Due Date Last Done Comments DTaP, Tdap and Td Vaccines (1 - Tdap) 01/20/1963 Pneumococcal Vaccine: 50+ Years (1 of 1 - PCV) 01/20/1994 Zoster Vaccines (1 of 2) 01/20/1994 Annual Medicare Wellness Visit 01/20/2009 COVID-19 Vaccine ( season) 2024 06/11/2024, 02/17/2023, 01/18/2022, Additional history exists RSV Immunization or 60+ Years Completed 02/17/2023 Meningococcal B Vaccine Aged Out No l onger eligible based on patient's age to complete this topic Meningococcal Vaccine Aged Out No bev roque eligible based on patient's age to complete this topic RSV Immunizations Under 20 Months Aged Out No longer eligible based on patient's age to complete this topic Procedures Procedure Name Priority Date/Time Associated Diagnosis Comments XR SNIFF TEST Routine 08/16/2024 1:52 PM CDT Diaphragm dysfunction from Last 3 Months Results * XR SNIFF TEST (08/16/2024 1:52 PM CDT) Anatomical Region Laterality Modality Chest, Abdomen Radiographic Pilar ging, Radiographic Imaging 08/16/2024 2:09 PM CDT Impressions 08/16/2024 2:13 PM CDT IMPRESSION: Symmetric diaphragmatic excursion without evidence to suggest paradoxical diaphragmatic motion or diaphragmatic paralysis. Ordered By: MEL SOLITARIO Interpreted By: Terry Watson DO, 08/16/2024 2:09 PM Narrative 08/16/2024 2:13 PM [address] [place] [id number] Examination: XR SNIFF TEST Exam time: 08/16/2024 1:52 PM Clinical history: Right-sided diaphragmatic elevation. Comparison: None. Technique: Sniff test was performed under direct AP fluoroscopic observation with trials of shallow inspiration, deep inspiration, deep inspiration through the nose, and repeated short bursts of deep inspiration through the nose. Fluoroscopic time: 1.2 minutes. Reference Air Kerma: 19.3 mGy. 2 fluoroscopic images were saved for documentation purposes. Findings: There is symmetric diaphragmatic excursion without evidence to suggest paradoxical diaphragmatic motion or diaphragmatic paralysis. Procedure Note Terry Watson DO - 08/16/[address] [place] [id number] Examination: XR SNIFF TEST Exam time: 08/16/2024 1:52 PM Clinical history: Right-sided diaphragmatic elevation. Comparison: None. Technique: Sniff test was performed under direct AP fluoroscopicobservation with trials of shallow inspiration, deep inspiration, deepinspiration through the nose, and repeated short bursts of deepinspiration through the nose. Fluoroscopic time: 1.2 minutes. Reference Air Kerma: 19.3 mGy. 2 fluoroscopic images were saved for documentation purposes. Findings: There is symmetric diaphragmatic excursion without evidence to suggestparadoxical diaphragmatic motion or diaphragmatic paralysis. IMPRESSION: Symmetric diaphragmatic excursion without evidence to suggest paradoxicaldiaphragmatic motion or diaphragmatic paralysis. Ordered By: MEL SOLITARIO Interpreted By: Terry Watson DO, 08/16/2024 2:09 PM Mel Solitario MD FLUOROSCOPY Final Result from Last 3 Months Insurance [facility] MEDICARE Care Teams Direct Support Professional Caregiver Relationship Specialty Start Date End Date Mel Solitario MD [address] [place] [address] PCP - General FAMILY PRACTICE 08/16/24
[2024-09-26 11:29] LABS: Alanine Aminotransferase 19 U/L (6-50); Albumin Level 3.9 g/dL (3.5-5.1); Alkaline Phosphatase 90 U/L (38-126); Anion Gap 8 mmol/L (4-12); Aspartate Amino Transferase 23 U/L (17-59); Blood Urea Nitrogen 22 mg/dL (9-20); Calcium 8.4 mg/dL (8.4-10.2); Carbon Dioxide 27 mmol/L (22-30); Chloride 101 mmol/L (98-107); Estimated Glomerular Filt Rate > 60; Glucose 101 mg/dL (65-110); Osmolality Calculated 285 mOsm/kg (285-295); Potassium 3.1 mmol/L (3.4-5.0); Sodium 136 mmol/L (137-145); Total Protein 6.4 g/dL (6.3-8.2)
== END 2024-09-26 10:36 | disposition home or self-care (01) ==
PROVIDERS: PCP Family Medicine; Visit Provider Family Medicine
DX: N17.9 Acute kidney failure, unspecified (principal)
CPT/HCPCS: 36415; 80053

== ENCOUNTER 2024-10-08 09:06 | Outpatient (CLI) | payer MEDICARE, SELFPAY ==
[2024-10-08 09:51] LABS: Alanine Aminotransferase 29 U/L (6-50); Albumin Level 3.7 g/dL (3.5-5.1); Alkaline Phosphatase 85 U/L (38-126); Anion Gap 7 mmol/L (4-12); Aspartate Amino Transferase 26 U/L (17-59); Bilirubin,Total 0.9 mg/dL (0.2-1.3); Blood Urea Nitrogen 19 mg/dL (9-20); Calcium 8.4 mg/dL (8.4-10.2); Carbon Dioxide 33 mmol/L (22-30); Chloride 96 mmol/L (98-107); Estimated Glomerular Filt Rate > 60; Glucose 135 mg/dL (65-110); Osmolality Calculated 286 mOsm/kg (285-295); Potassium 2.9 mmol/L (3.4-5.0); Sodium 136 mmol/L (137-145); Total Protein 6.3 g/dL (6.3-8.2)
== END 2024-10-08 09:07 | disposition home or self-care (01) ==
PROVIDERS: PCP Family Medicine; Visit Provider Family Medicine
DX: N17.9 Acute kidney failure, unspecified (principal); E87.8 Other disorders of electrolyte and fluid balance, not elsewhere classified
CPT/HCPCS: 36415; 80053

== ENCOUNTER 2024-10-10 09:31 | Outpatient (CLI) | payer MEDICARE, SELFPAY ==
[2024-10-10 12:28] LABS: Alanine Aminotransferase 27 U/L (6-50); Albumin Level 3.7 g/dL (3.5-5.1); Alkaline Phosphatase 86 U/L (38-126); Anion Gap 9 mmol/L (4-12); Aspartate Amino Transferase 26 U/L (17-59); Bilirubin,Total 0.7 mg/dL (0.2-1.3); Blood Urea Nitrogen 18 mg/dL (9-20); Calcium 8.4 mg/dL (8.4-10.2); Carbon Dioxide 28 mmol/L (22-30); Chloride 99 mmol/L (98-107); Estimated Glomerular Filt Rate > 60; Glucose 101 mg/dL (65-110); Osmolality Calculated 283 mOsm/kg (285-295); Potassium 3.3 mmol/L (3.4-5.0); Sodium 136 mmol/L (137-145); Total Protein 6.3 g/dL (6.3-8.2)
== END 2024-10-10 09:32 | disposition home or self-care (01) ==
PROVIDERS: PCP Family Medicine; Visit Provider Family Medicine
DX: N17.9 Acute kidney failure, unspecified (principal)
CPT/HCPCS: 36415; 80053

== ENCOUNTER 2024-10-15 10:49 | Outpatient (CLI) | payer MEDICARE, SELFPAY ==
--- OUTSIDE RECORDS SUMMARY | 2024-10-15 10:53 | XMS_ITS | Clinical Summary ---
Author Organization [facility] Address [address] [place] [address] Care Team Providers Care Asset Liability Analyst Name Role Phone Mel Solitario MD Primary Care Provider [phone] Encounters Date Type Department Care Team Description 08/16/2024 1:00 PM CDT - 08/16/2024 11:59 PM CDT Hospital Encounter [facility] [address] [facility] [place] [address] Mel Solitario MD Discharge Disposition: [...] 2:09 PM Narrative 08/16/2024 2:13 PM CDT [address] [place] [address] Examination: XR SNIFF TEST Exam time: 08/16/2024 [...] diaphragmatic motion or diaphragmatic paralysis. Procedure Note eTrry Watson DO - 08/16/[address] [place] [address] Examination: XR SNIFF TEST Exam time: 08/16/2024 [...] Final Result from Last 3 Months Insurance [facility] MEDICARE Care Teams Asset Liability Analyst Relationship Specialty Start Date End Date Mel Solitario MD [address] [place] [address] PCP - General FAMILY PRACTICE 08/16/24
[2024-10-15 11:31] LABS: Anion Gap 6 mmol/L (4-12); Blood Urea Nitrogen 19 mg/dL (9-20); Calcium 8.5 mg/dL (8.4-10.2); Carbon Dioxide 33 mmol/L (22-30); Chloride 96 mmol/L (98-107); Estimated Glomerular Filt Rate > 60; Glucose 98 mg/dL (65-110); Osmolality Calculated 282 mOsm/kg (285-295); Potassium 3.9 mmol/L (3.4-5.0); Sodium 135 mmol/L (137-145)
[2024-10-15 13:38] LABS: Magnesium 1.6 mg/dL (1.6-2.3)
== END 2024-10-15 10:50 | disposition home or self-care (01) ==
PROVIDERS: PCP Family Medicine; Visit Provider Family Medicine
DX: N17.9 Acute kidney failure, unspecified (principal)
CPT/HCPCS: 36415; 80048; 83735

== ENCOUNTER 2024-10-29 10:44 | Outpatient (CLI) | payer MEDICARE, SELFPAY ==
--- OUTSIDE RECORDS SUMMARY | 2024-10-29 10:49 | XMS_ITS | Clinical Summary ---
Author Organization [facility] Address [address] [place] [address] Care Team Providers [employer] Secretary Name Role Phone Mel Solitario MD Primary Care Provider [phone] Encounters Date Type Department Care Team Description 08/16/2024 1:00 PM CDT - 08/16/2024 11:59 PM CDT Hospital Encounter [facility] [address] [place] [address] Mel Solitario MD Discharge Disposition: [...] 2:09 PM Narrative 08/16/2024 2:13 PM CDT [address] [place] [address] Examination: XR SNIFF TEST Exam time: 08/16/2024 [...] Procedure Note Terry Watson DO - 08/16/[address] [place] [address] Examination: XR SNIFF TEST Exam time: 08/16/2024 [...] Final Result from Last 3 Months Insurance [facility] MEDICARE Care Teams Corporation Secretary Relationship Specialty Start Date End Date Mel Solitario MD [address] [place] [address] PCP - General FAMILY PRACTICE 08/16/24
[2024-10-29 11:46] LABS: Alanine Aminotransferase 10 U/L (6-50); Albumin Level 3.9 g/dL (3.5-5.1); Alkaline Phosphatase 83 U/L (38-126); Anion Gap 5 mmol/L (4-12); Aspartate Amino Transferase 22 U/L (17-59); Bilirubin,Total 0.7 mg/dL (0.2-1.3); Blood Urea Nitrogen 21 mg/dL (9-20); Calcium 8.6 mg/dL (8.4-10.2); Carbon Dioxide 31 mmol/L (22-30); Chloride 99 mmol/L (98-107); Estimated Glomerular Filt Rate > 60; Glucose 92 mg/dL (65-110); Magnesium 1.9 mg/dL (1.6-2.3); Osmolality Calculated 283 mOsm/kg (285-295); Potassium 4.0 mmol/L (3.4-5.0); Sodium 135 mmol/L (137-145); Total Protein 6.5 g/dL (6.3-8.2)
== END 2024-10-29 10:45 | disposition home or self-care (01) ==
PROVIDERS: PCP Family Medicine; Visit Provider Family Medicine
DX: N17.9 Acute kidney failure, unspecified (principal); N18.9 Chronic kidney disease, unspecified; E87.8 Other disorders of electrolyte and fluid balance, not elsewhere classified
CPT/HCPCS: 36415; 80053; 83735

== ENCOUNTER 2024-11-15 07:07 | Outpatient (NON) | payer MEDICARE, SELFPAY | END 2024-11-15 07:08 | disposition home or self-care (01) | LOC: CHSLAB 07:10 | PROVIDERS: Visit Provider Family Medicine | DX: R30.0 Dysuria (principal) | CPT/HCPCS: 87086 ==

== ENCOUNTER 2024-12-25 08:05 | Outpatient (CLI) | payer MEDICARE, SELFPAY ==
--- NOTE | ~2024-12-25 | XR_ITS ---
EXAMINATION: XR abdomen/kub 1V DATE: 12/25/2024 14:30 INDICATION: Acute kidney failure. TECHNIQUE: A supine view of the abdomen on 3 radiographs was obtained. COMPARISON: Abdomen radiographs 08/14/2024, CT abdomen and pelvis 01/17/2025 FINDINGS: The colon is distended. There are dilated loops of small bowel. There are surgical clips in the abdomen and pelvis. IMPRESSION: 1. Dilated bowel, which may be secondary to adynamic ileus or distal colonic obstruction. Reviewed, dictated and finalized at location E. IMPRESSION: 1. Dilated bowel, which may be secondary to adynamic ileus or distal colonic ob struction.
[2024-12-25 08:17] LABS: Hematocrit 33.5 % (37.0-46.0); Hemoglobin 10.9 g/dL (12.4-15.3); Mean Corpuscular HGB Conc 32.5 g/dL (32-36); Mean Corpuscular Hemoglobin 31.1 pg (27.0-31.0); Mean Corpuscular Volume 95.4 fL (78.0-102.0); Platelet Count Result 170 K/mm3 (150-420); Red Blood Count 3.51 M/mm3 (4.70-6.10); White Blood Count 6.3 K/mm3 (4.8-10.8)
[2024-12-25 08:23] LABS: Albumin Level 3.8 g/dL (3.5-5.1); Alkaline Phosphatase 93 U/L (38-126); Amylase 74 U/L (30-110); Anion Gap 9 mmol/L (4-12); Aspartate Amino Transferase 22 U/L (17-59); Bilirubin,Total 0.6 mg/dL (0.2-1.3); Blood Urea Nitrogen 18 mg/dL (9-20); Calcium 9.0 mg/dL (8.4-10.2); Carbon Dioxide 30 mmol/L (22-30); Chloride 99 mmol/L (98-107); Estimated Glomerular Filt Rate > 60; Glucose 97 mg/dL (65-110); Lipase 50 U/L (23-300); Osmolality Calculated 287 mOsm/kg (285-295); Potassium 4.1 mmol/L (3.4-5.0); Sodium 138 mmol/L (137-145); Total Protein 6.8 g/dL (6.3-8.2)
--- OUTSIDE RECORDS SUMMARY | 2024-12-25 08:29 | XMS_ITS | Clinical Summary ---
Author Organization [facility] Address [address] [place] [address] Phone Care Team Providers Care Blender Operator Name Role Phone Kyle Soares MD Primary Care Provider [phone]- [phone] Allergies Active Allergy Reactions Criticality Noted Date Comments Bee Venom Anaphylaxis,Swelling 12/16/2024 Medications amLODIPine (NORVASC) 5 MG TabletIndicatio ns:Hypertension Take 5 mg by mouth every morning. Indications: High Blood Pressure Active escitalopram (LEXAPRO) 10 MG TabletIndicatio ns:Depression Take 10 mg by mouth every morning. Indications: Depression Active morphine IMMEDIATE RELEASE (MS IR) 15 MG Tablet Take 15 mg by mouth 2 times daily. Active ALPRAZolam (XANAX) 0.5 MG Tablet Take 0.5 mg by mouth 3 times daily as needed for Anxiety. Active furosemide (LASIX) 20 MG TabletIndicatio ns:Edema Take 40 mg by mouth every morning. Give two 20 mg tablets Indications: Edema Active acetaminophen (TYLENOL) 325 MG Tablet Take 650 mg by mouth every 4 hours as needed for Fever or Mild or more severe pain. Active aluminum & magnesium hydroxide-simet hicone (Almacone Double Strength) 400-400-40 MG/5ML SuspensionIndic ations:Flatulen ce,Gastric Distress Take 15 mL by mouth every 6 hours as needed. Indications: Gas, Stomach Upset Active polyvinyl alcohol (Artificial Tears) 1.4 % SolutionIndicat ions:dry eyes Place 1 Drop in both eyes 4 times daily. Indications: dry eyes Active bisacodyl EC (bisacodyl) 5 MG Tablet Delayed Response Take 10 mg by mouth daily as needed (give one time on 3rd day of no bowel movement). Active bisacodyl 10 MG Suppository 10 mg by Rectal route daily as needed (if no bowel movement with tablets). Active carbidopa-levod opa (SINEMET) 25-100 MG TabletIndicatio ns:Parkinson's Disease Take 1 Tablet by mouth 2 times daily. Indications: Parkinson's Disease Active docusate sodium (COLACE) 100 MG CapsuleIndicati ons:Constipatio n Take 100 mg by mouth 2 times daily. Indications: Constipation Active fluticasone (FLONASE) 50 MCG/ACT SuspensionIndic ations:Allergic Rhinitis 1 [place] by Nasal route daily. Use in each nostril as directed. Indications: Allergic Rhinitis Active polyethylene glycol (GlycoLax) 17 GM/SCOOP PowderIndicatio ns:Constipation Take 17 g by mouth daily. 17 g = 1 scoop. Dissolve in 4 -8 oz of water or other liquid. Indications: Constipation Active Lidocaine 5 % CreamIndication s:apply to back for pain by Apply externally route 2 times daily. Indications: apply to back for pain Active lidocaine (LIDODERM) 5 % PatchIndication s:Back pain 1 Patch by Transdermal route Daily as needed for Pain. Indications: Back pain Active magnesium oxide (MAG-OX) 400 MG Tablet Take 400 mg by mouth three times a week. Mon/Wed/Fri Active naloxone HCl (Narcan) 4 MG/0.1ML Liquid 1 [place] by Nasal route as needed for Opioid Reversal. Administer in one nostril for symptoms of overdose (severe sleepiness, breathing problems, not responsive). Call 911. May repeat 1 spray in alternate nostril in 2-3 minutes if needed. Active olopatadine (Pataday) 0.1 % SolutionIndicat ions:Irritation Place 1 Drop in affected eye(s) every morning. Right eye Indications: Irritation Active potassium chloride SA (KLORCON M) 20 MEQ Tablet Controlled ReleaseIndicati ons:Acute kidney failure Take 40 mEq by mouth daily. Takes two 20 mEq tablets Indications: Acute kidney failure Active Phenylephrine-M ineral Oil-Pet 0.25-14-74.9 % OintmentIndicat ions:Hemorrhoid s by Rectal route every 6 hours as needed. Indications: Hemorrhoids Active senna (SENOKOT) 8.6 MG TabletIndicatio ns:Constipation Take 1 Tablet by mouth 2 times daily. Indications: Constipation Active OPHTHALMIC IRRIGATION SOLUTION OP Place 1 Drop in affected eye(s) 3 times daily. Right eye for cataract surgery Active Encounters Date Type Department Care Team Description 12/16/2024 12:20 PM CDT - 12/16/2024 12:40 PM CDT [facility] [address] [place] [address] Krystyna Carmen MD PhD CATARACT EXTRACTION WITH INTRAOCULAR LENS PLACEMENT, LEFT EYE 12/16/2024 12:09 PM CDT [facility] [address] [place] [address] Kel De Jesus APRN, IS/IT PROJECT MANAGER 12/16/2024 10:52 AM CDT - 12/16/2024 12:31 PM CDT [facility] Preop[facility]Pac[facility] [address] [place] [address] Krystyna Carmen MD PhD Discharge Disposition: Discharged to home or Selfcare 12/16/2024 Travel 12/11/2024 Travel 11/25/2024 10:23 AM CDT [facility] [address] [place] [address] Kel De Jesus APRN, IS/IT PROJECT MANAGER 11/25/2024 10:20 AM CDT - 11/25/2024 10:40 AM CDT [facility] [address] [place] [address] Krystyna Carmen MD PhD CATARACT EXTRACTION WITH INTRAOCULAR LENS PLACEMENT, RIGHT EYE 11/25/2024 9:11 AM CDT - 11/25/2024 10:47 AM CDT [facility] [address] [place] [address] Krystyna Carmen MD PhD Discharge Disposition: Discharged to home or Selfcare 11/25/2024 Travel 11/15/2024 Travel from Last 3 Months Social History Tobacco Use Types Packs/Day Years Used Date Smoking Tobacco: Unknown Tobacco Cessation:Counseling Given: Not Answered Alcohol Use Standard Drinks/Week Comments Not Currently 0 (1 standard drink = 0.6 oz pur e alcohol) Sexually Active Control Partners Comments Not Currently Sex and Gender Information Value Date Recorded Sex Assigned at Not on file Legal Sex Male 12:37 AM CDT Gender Identity Not on file Sexual Orientation Not on file Last Filed Vital Signs Vital Sign Reading Time Taken Comments Blood Pressure 127/88 12/16/2024 12:27 PM CDT Pulse 64 12/16/2024 12:27 PM CDT Temperature 36.7 C (98.1 F) 12/16/2024 12:27 PM CDT Respiratory Rate 16 12/16/2024 12:27 PM CDT Oxygen Saturation 99% 12/16/2024 12:27 PM CDT Inhaled Oxygen Concentration - - Weight 75.8 kg (167 lb) 12/16/2024 11:18 AM CDT Height 175.3 cm (5' 9) 12/16/2024 11:18 AM CDT Body Mass Index 24.66 12/16/2024 11:18 AM CDT Plan of Treatment Not on file Medical Devices Implanted Type Area Garment Liner Device Identifier Shelf Expiration Date Model / Serial / Lot Right Lens Implanted:Qty: 1 on 11/25/2024 by Krystyna Carmen MD PhD at [facility] Right: Eye [employer] 09/25/2027 DCB00 / DCB00 / [id number] Tecnis 1-Piece Iol With Technis Simplicity Delivery System Implanted:Qty: 1 on 12/16/2024 by Krystyna Carmen MD PhD at [facility] Left: Eye [employer] 09/30/2027 DCB0 [id number] / [id number] / [id number] Procedures Procedure Name Priority Date/Time Associated Diagnosis Comments EXTCAP RMVL INSERT INTRAOC PROSTH W/ECP 12/16/2024 12:01 PM CDT VISUALLY SIGNIFICANT CATARACT, LEFT EYE Special Needs Resides at [facility], facility will provide transportation, patient signs own consents. Georgette (HCPOA) will be here. HCPOA & POLST/DNR in media. Hx of low back pain (limited mobility) Htn, bladder & prostate cancer. 5ft 9in 167lb EXTCAP INSERT INTROC PROSTH W/ECP 12/16/2024 12:01 PM CDT VISUALLY SIGNIFICANT CATARACT, LEFT EYE Special Needs Resides at [facility], facility will provide transportation, patient signs own consents. Georgette (HCPOA) will be here. HCPOA & POLST/DNR in media. Hx of low back pain (limited mobility) Htn, bladder & prostate cancer. 5ft 9in 167lb [place] XCAPSL CTRC RMVL INSJ IO LENS PROSTH W/O ECP 12/16/2024 12:01 PM CDT VISUALLY SIGNIFICANT CATARACT, LEFT EYE Special Needs Resides at [facility], facility will provide transportation, patient signs own consents. Georgette (HCPOA) will be here. HCPOA & POLST/DNR in media. Hx of low back pain (limited mobility) Htn, bladder & prostate cancer. 5ft 9in 167lb REMV CATARACT INTRACAP,INSERT LENS 12/16/2024 12:01 PM CDT VISUALLY SIGNIFICANT CATARACT, LEFT EYE Special Needs Resides at [facility], facility will provide transportation, patient signs own consents. Georgette (HCPOA) will be here. HCPOA & POLST/DNR in media. Hx of low back pain (limited mobility) Htn, bladder & prostate cancer. 5ft 9in 167lb W[place] XCAPSL CTRC RMVL INSJ IO LENS PROSTH CPLX WO ECP 12/16/2024 12:01 PM CDT VISUALLY SIGNIFICANT CATARACT, LEFT EYE Special Needs Resides at [facility], facility will provide transportation, patient signs own consents. Georgette (HCPOA) will be here. HCPOA & POLST/DNR in media. Hx of low back pain (limited mobility) Htn, bladder & prostate cancer. 5ft 9in 167lb EXTCAP RMVL INSERT INTRAOC PROSTH W/ECP 11/25/2024 10:13 AM CDT VISUALLY SIGNIFICANT CATARACT, RIGHT EYE Special Needs Resides at [facility]-fac[facility] will provide transportation, patient signs own consents, Georgette (HCPOA) will be here, POLST in media Hx of Low back pain (limited mobility) Htn, bladder & prostate cancer 5ft 9in 165lb EXTCAP INSERT INTROC PROSTH W/ECP 11/25/2024 10:13 AM CDT VISUALLY SIGNIFICANT CATARACT, RIGHT EYE [facility], patient signs own consents, Georgette (HCPOA) will be here, POLST in media Hx of Low back pain (limited mobility) Htn, bladder & prostate cancer 5ft 9in 165lb W[place] XCAPSL CTRC RMVL INSJ IO LENS PROSTH W/O ECP 11/25/2024 10:13 AM CDT VISUALLY SIGNIFICANT CATARACT, RIGHT EYE Special Needs Resides at [facility] will provide transportation, patient signs own consents, Georgette (HCPOA) will be here, POLST in media Hx of Low back pain (limited mobility) Htn, bladder & prostate cancer 5ft 9in 165lb REMV CATARACT INTRACAP,INSERT LENS 11/25/2024 10:13 AM CDT VISUALLY SIGNIFICANT CATARACT, RIGHT EYE Special Needs Resides at [facility] will provide transportation, patient signs own consents, Georgette (HCPOA) will be here, POLST in media Hx of Low back pain (limited mobility) Htn, bladder & prostate cancer 5ft 9in 165lb WV XCAPSL CTRC RMVL INSJ IO LENS PROSTH CPLX WO ECP 11/25/2024 10:13 AM CDT VISUALLY SIGNIFICANT CATARACT, RIGHT EYE Special Needs Resides at [facility] will provide transportation, patient signs own consents, Georgette (HCPOA) will be here, POLST in media Hx of Low back pain (limited mobility) Htn, bladder & prostate cancer 5ft 9in 165lb from Last 3 Months Insurance MEDICARE Advance Directives Documents on File Type Date Recorded Patient Manual Machinist Expl anation Power of Financial Reporting Specialist for Health Care 12/06/2024 3:46 PM POA 01/02/2024 POLST[place] D[place] 11/15/2024 2:34 PM POLST FORM Care Teams Blender Operator Relationship Specialty Start Date End Date Kyle Soares MD [address] [place], [place] [id number] PCP - General Pediatrics 11/25/24
[2024-12-25 08:34] LABS: Alanine Aminotransferase < 6 U/L (6-50)
[2024-12-25 13:48] LABS: Iron 58 ug/dL (49-181)
[2024-12-25 13:57] LABS: Percent Iron Saturation 21 % (20-50)
[2024-12-25 14:24] LABS: Ferritin 55.10 ng/mL (11.1-264)
[2024-12-25 14:38] LABS: Vitamin B12 456.0 pg/mL (239-931)
--- OUTSIDE RECORDS SUMMARY | 2024-12-25 14:48 | XMS_ITS | Clinical Summary ---
Author Organization [facility] Address [address] [place] [address] Care Team Providers Care Shrimp Trawler Captain Name Role Phone Kyle Soares MD Primary Care Provider [phone] Social History Tobacco Use Types Packs/Day Years [...] on patient's age to complete this topic Insurance AARP MEDICARE Care Teams Shrimp Trawler Captain Relationship Specialty Start Date End Date Kyle Soares MD [address] [place] [address] PCP - General FAMILY PRACTICE 08/16/24
--- OUTSIDE RECORDS SUMMARY | 2024-12-25 14:48 | XMS_ITS | Clinical Summary ---
Author Organization [facility] Address [address] [place] [address] Phone Care Team Providers Care Heavy Cleaner Name Role Phone Kyle Soares MD Primary Care Provider [phone]- [phone] Allergies Active Allergy Reactions Criticality Noted Date [...] (FLONASE) 50 MCG/ACT SuspensionIndic ations:Allergic Rhinitis 1 [place] by Nasal route daily. Use in each [...] naloxone HCl (Narcan) 4 MG/0.1ML Liquid 1 [place] by Nasal route as needed for Opioid [...] CDT - 12/16/2024 12:40 PM CDT [facility] [address] [place] [address] Krystyna Carmen MD PhD CATARACT EXTRACTION WITH INTRAOCULAR LENS PLACEMENT, LEFT EYE 12/16/2024 12:09 PM CDT [facility] [address] [place] [address] Kel De Jesus APRN, MAITRE D' 12/16/2024 10:52 AM CDT - 12/16/2024 12:31 PM CDT [facility] [address] [place] [address] Krystyna Carmen MD PhD Discharge Disposition: Discharged to home or Selfcare 12/16/2024 Travel 12/11/2024 Travel 11/25/2024 10:23 AM CDT [facility] [address] [place] [address] Kel De Jesus APRN, MAITRE D' 11/25/2024 10:20 AM CDT - 11/25/2024 10:40 AM CDT [facility] [address] [place] [address] Krystyna Carmen MD PhD CATARACT EXTRACTION WITH INTRAOCULAR LENS PLACEMENT, RIGHT EYE 11/25/2024 9:11 AM CDT - 11/25/2024 10:47 AM CDT [facility] [address] [place] [address] Krystyna Carmen MD PhD Discharge Disposition: Discharged [...] on file Medical Devices Implanted Type Area Security Incident Handler Device Identifier Shelf Expiration Date Model / Serial / Lot Right Lens Implanted:Qty: 1 on 11/25/2024 by Krystyna Carmen MD PhD at [facility] Right: Eye [employer] 09/25/2027 DCB00 / DCB00 / [id number] Tecnis 1-Piece Iol With Technis Simplicity Delivery System Implanted:Qty: 1 on 12/16/2024 by Krystyna Carmen MD PhD at [facility] Left: Eye [employer] 09/30/2027 DCB0 [id number] / [id number] / [id number] Procedures Procedure Name Priority Date/Time Associated Diagnosis Comments EXTCAP RMVL INSERT INTRAOC PROSTH W/ECP 12/16/2024 12:01 PM CDT VISUALLY SIGNIFICANT CATARACT, LEFT EYE Special Needs Resides at [facility], facility will provide transportation, patient signs own consents. Georgette (HCPOA) will be here. HCPOA & POLST/DNR in media. Hx of low back pain (limited mobility) Htn, bladder & prostate cancer. 5ft 9in 167lb EXTCAP INSERT INTROC PROSTH W/ECP 12/16/2024 12:01 PM CDT VISUALLY SIGNIFICANT CATARACT, LEFT EYE Special Needs Resides at [facility], facility will provide transportation, patient signs own consents. Georgette (HCPOA) will be here. HCPOA & POLST/DNR in media. Hx of low back pain (limited mobility) Htn, bladder & prostate cancer. 5ft 9in 167lb [place] XCAPSL CTRC RMVL INSJ IO LENS PROSTH W/O ECP 12/16/2024 12:01 PM CDT VISUALLY SIGNIFICANT CATARACT, LEFT EYE Special Needs Resides at [facility], facility will provide transportation, patient signs own consents. Georgette (HCPOA) will be here. HCPOA & POLST/DNR in media. Hx of low back pain (limited mobility) Htn, bladder & prostate cancer. 5ft 9in 167lb REMV CATARACT INTRACAP,INSERT LENS 12/16/2024 12:01 PM CDT VISUALLY SIGNIFICANT CATARACT, LEFT EYE Special Needs Resides at [facility], facility will provide transportation, patient signs own consents. Georgette (HCPOA) will be here. HCPOA & POLST/DNR in media. Hx of low back pain (limited mobility) Htn, bladder & prostate cancer. 5ft 9in 167lb [place] XCAPSL CTRC RMVL INSJ IO LENS PROSTH CPLX WO ECP 12/16/2024 12:01 PM CDT VISUALLY SIGNIFICANT CATARACT, LEFT EYE Special Needs Resides at [facility], facility will provide transportation, patient signs own consents. Georgette (HCPOA) will be here. HCPOA & POLST/DNR in media. Hx of low back pain (limited mobility) Htn, bladder & prostate cancer. 5ft 9in 167lb EXTCAP RMVL INSERT INTRAOC PROSTH W/ECP 11/25/2024 10:13 AM CDT VISUALLY SIGNIFICANT CATARACT, RIGHT EYE Special Needs Resides at [facility]fac[facility] will provide transportation, patient signs own consents, Georgette (HCPOA) will be here, POLST in media Hx of Low back pain (limited mobility) Htn, bladder & prostate cancer 5ft 9in 165lb EXTCAP INSERT INTROC PROSTH W/ECP 11/25/2024 10:13 AM CDT VISUALLY SIGNIFICANT CATARACT, RIGHT EYE [facility], patient signs own consents, Georgette (HCPOA) will be here, POLST in media Hx of Low back pain (limited mobility) Htn, bladder & prostate cancer 5ft 9in 165lb [place] XCAPSL CTRC RMVL INSJ IO LENS PROSTH W/O ECP 11/25/2024 10:13 AM CDT VISUALLY SIGNIFICANT CATARACT, RIGHT EYE Special Needs Resides at [facility] will provide transportation, patient signs own consents, Georgette (HCPOA) will be here, POLST in media Hx of Low back pain (limited mobility) Htn, bladder & prostate cancer 5ft 9in 165lb REMV CATARACT INTRACAP,INSERT LENS 11/25/2024 10:13 AM CDT VISUALLY SIGNIFICANT CATARACT, RIGHT EYE Special Needs Resides at [facility] will provide transportation, patient signs own consents, Georgette (HCPOA) will be here, POLST in media Hx of Low back pain (limited mobility) Htn, bladder & prostate cancer 5ft 9in 165lb [place] XCAPSL CTRC RMVL INSJ IO LENS PROSTH CPLX WO ECP 11/25/2024 10:13 AM CDT VISUALLY SIGNIFICANT CATARACT, RIGHT EYE Special Needs Resides at [facility] will provide transportation, patient signs own consents, Georgette (HCPOA) will be here, POLST in media Hx of Low back pain (limited mobility) Htn, bladder & prostate cancer 5ft 9in 165lb from Last 3 Months Insurance MEDICARE Advance Directives Documents on File Type Date Recorded Patient Tension Worker Expl anation Power of Lithographic Press Operator for Health Care 12/06/2024 3:46 PM POA 01/02/2024 POLST/POST/[place] DNR 11/15/2024 2:34 PM POLST FORM Care Teams Heavy Cleaner Relationship Specialty Start Date End Date Kyle Soares MD [address] [place], [place] [id number] PCP - General Pediatrics 11/25/24
[2024-12-26 15:09] LABS: Folate, Hemolysate 398.0 ng/mL (Not Estab.); Folate, RBC 1127 ng/mL (>498); Hematocrit 35.3 % (37.5-51.0)
== END 2024-12-25 08:06 | disposition home or self-care (01) ==
PROVIDERS: PCP Family Medicine; Visit Provider Family Medicine
DX: N17.9 Acute kidney failure, unspecified (principal); D64.9 Anemia, unspecified; E87.8 Other disorders of electrolyte and fluid balance, not elsewhere classified; Z85.46 Personal history of malignant neoplasm of prostate; Z85.51 Personal history of malignant neoplasm of bladder; I10 Essential (primary) hypertension
CPT/HCPCS: 36415; 74018; 80053; 82150; 82607; 82728; 82747; 83540; 83550; 83690; 85027

== ENCOUNTER 2025-01-20 14:23 | Outpatient (NON) | payer MEDICARE, SELFPAY ==
[2025-01-20 14:39] LABS: Add Urine Microscopic? NO; Appearance Urine Clear (Clear); Glucose Urine UA Negative (Negative); Hematocrit 33.9 % (37.0-46.0); Hemoglobin 11.3 g/dL (12.4-15.3); Leukocyte Esterase Ur Negative (Negative); Mean Corpuscular HGB Conc 33.3 g/dL (32-36); Mean Corpuscular Hemoglobin 31.2 pg (27.0-31.0); Mean Corpuscular Volume 93.6 fL (78.0-102.0); Nitrate Urine Negative (Negative); Platelet Count Result 169 K/mm3 (150-420); Red Blood Count 3.62 M/mm3 (4.70-6.10); Specific Grav Ur 1.015 (1.010-1.020); White Blood Count 9.4 K/mm3 (4.8-10.8)
[2025-01-20 15:05] LABS: Alanine Aminotransferase 8 U/L (6-50); Albumin Level 4.0 g/dL (3.5-5.1); Alkaline Phosphatase 86 U/L (38-126); Amylase 96 U/L (30-110); Anion Gap 9 mmol/L (4-12); Aspartate Amino Transferase 20 U/L (17-59); Bilirubin,Total 0.9 mg/dL (0.2-1.3); Blood Urea Nitrogen 22 mg/dL (9-20); Calcium 8.8 mg/dL (8.4-10.2); Carbon Dioxide 30 mmol/L (22-30); Chloride 97 mmol/L (98-107); Estimated Glomerular Filt Rate > 60; Glucose 120 mg/dL (65-110); Lipase 148 U/L (23-300); Osmolality Calculated 286 mOsm/kg (285-295); Potassium 4.0 mmol/L (3.4-5.0); Sodium 136 mmol/L (137-145); Total Protein 6.7 g/dL (6.3-8.2)
--- OUTSIDE RECORDS SUMMARY | 2025-01-20 15:25 | XMS_ITS | Clinical Summary ---
Author Organization [facility] Address [address] [place] [id number] Care Team Providers Care Potato Chip Processing Supervisor Name Role Phone Kyle Soares MD Primary Care Provider [phone] Social History Tobacco Use Types Packs/Day Years [...] 2024 06/11/2024, 02/17/2023, 01/18/2022, Additional history exists Influenza Adult (#1) 2025 01/25/2024, 12/20/2022, 01/05/2021, Additional history exists RSV Immunization or 60+ [...] this topic Insurance AARP MEDICARE Care Teams Potato Chip Processing Supervisor Relationship Specialty Start Date End Date Kyle Soares MD [address] [place], [place] [id number] PCP - General FAMILY PRACTICE 08/16/24
--- OUTSIDE RECORDS SUMMARY | 2025-01-20 15:25 | XMS_ITS | Clinical Summary ---
Author Organization [facility] Address [address] [place] [address] Phone Care Team Providers Care Perinatal Tech Name Role Phone Kyle Soares MD Primary Care Provider [phone]- [phone] Allergies Active Allergy Reactions Criticality Noted Date [...] (FLONASE) 50 MCG/ACT SuspensionIndic ations:Allergic Rhinitis 1 [place] by Nasal route daily. Use in each [...] naloxone HCl (Narcan) 4 MG/0.1ML Liquid 1 [place] by Nasal route as needed for Opioid [...] CDT - 12/16/2024 12:40 PM CDT Surgery [facility] Periop [address] [place] [address] Krystyna Carmen MD PhD CATARACT EXTRACTION WITH INTRAOCULAR LENS PLACEMENT, LEFT EYE 12/16/2024 12:09 PM CDT Anesthesia Event [facility]iop [address] [place] [address] Kel De Jesus APRN, ASSOCIATE FIELD SERVICE ENGINEER 12/16/2024 10:52 AM CDT - 12/16/2024 12:31 PM CDT Hospital Encounter [facility] Preop/Pacu II 1 [place] [address] Krystyna Carmen MD PhD Discharge Disposition: Discharged to home or Selfcare 12/16/2024 Travel 12/11/2024 Travel 11/25/2024 10:23 AM CDT Anesthesia Event [facility] [address]iop [address] [place] [address] Kel De Jesus APRN, ASSOCIATE FIELD SERVICE ENGINEER 11/25/2024 10:20 AM CDT - 11/25/2024 10:40 AM CDT Surgery [facility] [address]iop [address] [place] [address] Krystyna Carmen MD PhD CATARACT EXTRACTION WITH INTRAOCULAR LENS PLACEMENT, RIGHT EYE 11/25/2024 9:11 AM CDT - 11/25/2024 10:47 AM CDT Hospital Encounter [facility] Preop/Pacu II [address] [place] [address] Krystyna Carmen MD PhD Discharge Disposition: Discharged [...] on file Medical Devices Implanted Type Area Packing Shed Supervisor Device Identifier Shelf Expiration Date Model / Serial / Lot Right Lens Implanted:Qty: 1 on 11/25/2024 by Krystyna Carmen MD PhD at [facility] Right: Eye [employer]RIC [employer] CEDRIC 09/25/2027 DCB00 / DCB00 / [id number] Tecnis 1-Piece Iol With Technis Simplicity Delivery System Implanted:Qty: 1 on 12/16/2024 by Krystyna Carmen MD PhD at [facility] Left: Eye [employer] CEDRIC 09/30/2027 DCB0 [id number] / [id number] / [id number] Procedures Procedure Name Priority Date/Time Associated Diagnosis Comments EXTCAP RMVL INSERT INTRAOC PROSTH W/ECP 12/16/2024 12:01 PM CDT VISUALLY SIGNIFICANT CATARACT, LEFT EYE Special Needs Resides at [facility], facility will provide transportation, patient signs own consents. Georgette (HCPOA) will be here. HCPOA & POLST/DNR in media. Hx of low back pain (limited mobility) Htn, bladder & prostate cancer. 5ft 9in 167lb EXTCAP INSERT INTROC PROSTH W/ECP 12/16/2024 12:01 PM CDT VISUALLY SIGNIFICANT CATARACT, LEFT EYE Special Needs Resides at [facility], facility will provide transportation, patient signs own consents. Georgette (HCPOA) will be here. HCPOA & POLST/DNR in media. Hx of low back pain (limited mobility) Htn, bladder & prostate cancer. 5ft 9in 167lb [place] XCAPSL CTRC RMVL INSJ IO LENS PROSTH W/O ECP 12/16/2024 12:01 PM CDT VISUALLY SIGNIFICANT CATARACT, LEFT EYE Special Needs Resides at [facility], facility will provide transportation, patient signs own consents. Georgette (HCPOA) will be here. HCPOA & POLST/DNR in media. Hx of low back pain (limited mobility) Htn, bladder & prostate cancer. 5ft 9in 167lb REMV CATARACT INTRACAP,INSERT LENS 12/16/2024 12:01 PM CDT VISUALLY SIGNIFICANT CATARACT, LEFT EYE Special Needs Resides at [facility], facility will provide transportation, patient signs own consents. Georgette (HCPOA) will be here. HCPOA & POLST/DNR in media. Hx of low back pain (limited mobility) Htn, bladder & prostate cancer. 5ft 9in 167lb [place] XCAPSL CTRC RMVL INSJ IO LENS PROSTH CPLX WO ECP 12/16/2024 12:01 PM CDT VISUALLY SIGNIFICANT CATARACT, LEFT EYE Special Needs Resides at [facility], facility will provide transportation, patient signs own consents. Georgette (HCPOA) will be here. HCPOA & POLST/DNR in media. Hx of low back pain (limited mobility) Htn, bladder & prostate cancer. 5ft 9in 167lb EXTCAP RMVL INSERT INTRAOC PROSTH W/ECP 11/25/2024 10:13 AM CDT VISUALLY SIGNIFICANT CATARACT, RIGHT EYE Special Needs Resides at [facility]facility will provide transportation, patient signs own consents, Georgette (HCPOA) will be here, POLST in media Hx of Low back pain (limited mobility) Htn, bladder & prostate cancer 5ft 9in 165lb EXTCAP INSERT INTROC PROSTH W/ECP 11/25/2024 10:13 AM CDT VISUALLY SIGNIFICANT CATARACT, RIGHT EYE [facility] will [facility], patient signs own consents, Georgette (HCPOA) will be here, POLST in media Hx of Low back pain (limited mobility) Htn, bladder & prostate cancer 5ft 9in 165lb [place] XCAPSL CTRC RMVL INSJ IO LENS PROSTH W/O ECP 11/25/2024 10:13 AM CDT VISUALLY SIGNIFICANT CATARACT, RIGHT EYE Special Needs Resides at [facility] will provide transportation, patient signs own consents, Georgette (HCPOA) will be here, POLST in media Hx of Low back pain (limited mobility) Htn, bladder & prostate cancer 5ft 9in 165lb REMV CATARACT INTRACAP,INSERT LENS 11/25/2024 10:13 AM CDT VISUALLY SIGNIFICANT CATARACT, RIGHT EYE Special Needs Resides at [facility] will provide transportation, patient signs own consents, Georgette (HCPOA) will be here, POLST in media Hx of Low back pain (limited mobility) Htn, bladder & prostate cancer 5ft 9in 165lb [place] XCAPSL CTRC RMVL INSJ IO LENS PROSTH CPLX WO ECP 11/25/2024 10:13 AM CDT VISUALLY SIGNIFICANT CATARACT, RIGHT EYE Special Needs Resides at [facility] will provide transportation, patient signs own consents, Georgette (HCPOA) will be here, POLST in media Hx of Low back pain (limited mobility) Htn, bladder & prostate cancer 5ft 9in 165lb from Last 3 Months Insurance MEDICARE Advance Directives Documents on File Type Date Recorded Patient Oil Dispatcher Expl anation Power of Electroneurodiagnostic Technologist for Health Care 12/06/2024 3:46 PM POA 01/02/2024 POLST/[place] D[place] 11/15/2024 2:34 PM POLST FORM Care Teams Perinatal Tech Relationship Specialty Start Date End Date Kyel Soares MD [address] [place], [place] [id number] PCP - General Pediatrics 11/25/24
== END 2025-01-20 14:24 | disposition home or self-care (01) ==
LOC: CHSLAB 14:24
PROVIDERS: PCP Family Medicine; Visit Provider Family Medicine
DX: N17.9 Acute kidney failure, unspecified (principal); N39.0 Urinary tract infection, site not specified; E87.8 Other disorders of electrolyte and fluid balance, not elsewhere classified
CPT/HCPCS: 36415; 80053; 81003; 82150; 83690; 85027; 87086

== ENCOUNTER 2025-01-23 07:19 | Outpatient (CLI) | payer MEDICARE, SELFPAY ==
--- NOTE | ~2025-01-23 | CT_ITS ---
EXAMINATION: CT abdomen pelvis w con DATE: 01/23/2025 07:57 INDICATION: Abdominal pain. Abdominal distention. TECHNIQUE: Computed tomography (CT) of the abdomen and pelvis was performed with 100 mL Omnipaque 350 intravenous contrast. Automated exposure control and iterative reconstruction technique were employed. The dose-length product was 539.03 mGy-cm. COMPARISON: CT pelvis 06/26/2024, CT abdomen and pelvis 05/20/2024 FINDINGS: The visualized portions of lung bases demonstrate mild atelectasis and mild chronic lung disease. No pleural effusion. Cardiomegaly is noted. There are coronary artery calcifications. No pericardial effusion. There are cysts in the liver measuring up to 2.6 cm. The gallbladder, spleen, pancreas, and right adrenal gland are normal. There is a 12 mm mass in left adrenal gland without change from 05/20/2024, likely not adenoma. There is a 6 mm cyst in right kidney. There is cortical thinning of the kidneys. Stool distends the rectum. There is a moderate volume of stool in the colon. The appendix is not visualized. There are no pathologically enlarged lymph nodes. There is no free intraperitoneal fluid. There is severe lumbar spondylosis. There is mild thoracic spondylosis. IMPRESSION: 1. Stool distends the rectum. Reviewed, dictated and finalized at location E.
--- OUTSIDE RECORDS SUMMARY | 2025-01-23 07:26 | XMS_ITS | Clinical Summary ---
Author Organization [facility] Address [address] [place] [address] Phone Care Team Providers Care Nuclear Equipment Research Engineer Name Role Phone Kyle Soares MD Primary Care Provider [phone]- [phone] Allergies Active Allergy Reactions Criticality Noted Date [...] (FLONASE) 50 MCG/ACT SuspensionIndic ations:Allergic Rhinitis 1 [place] by Nasal route daily. Use in each [...] naloxone HCl (Narcan) 4 MG/0.1ML Liquid 1 [place] by Nasal route as needed for Opioid [...] CDT - 12/16/2024 12:40 PM CDT [facility] [address] [place] [address] Krystyna Carmen MD PhD CATARACT EXTRACTION WITH INTRAOCULAR LENS PLACEMENT, LEFT EYE 12/16/2024 12:09 PM CDT [facility]esthesia [facility] [address] [place] [address] Kel De Jesus APRN, MUSIC CRITIC 12/16/2024 10:52 AM CDT - 12/16/2024 12:31 PM CDT [facility] [address] [place] [address] Krystyna Carmen MD PhD Discharge Disposition: Discharged to home or Selfcare 12/16/2024 Travel 12/11/2024 Travel 11/25/2024 10:23 AM CDT [facility]esthesia [facility] [address] [place] [address] Kel De Jesus APRN, MUSIC CRITIC 11/25/2024 10:20 AM CDT - 11/25/2024 10:40 AM CDT [facility] [address] [place] [address] Krystyna Carmen MD PhD CATARACT EXTRACTION WITH INTRAOCULAR LENS PLACEMENT, RIGHT EYE 11/25/2024 9:11 AM CDT - 11/25/2024 10:47 AM CDT [facility]Pac[facility] [address] [place] [address] Krystyna Carmen MD PhD Discharge Disposition: Discharged [...] on file Medical Devices Implanted Type Area Fingerprint Classifier Device Identifier Shelf Expiration Date Model / Serial / Lot Right Lens Implanted:Qty: 1 on 11/25/2024 by Krystyna Carmen MD PhD at [facility] Right: Eye C[employer]RIC [employer] CEDRIC 09/25/2027 DCB00 / DCB00 / [id number] Tecnis 1-Piece Iol With Technis Simplicity Delivery System Implanted:Qty: 1 on 12/16/2024 by Krystyna Carmen MD PhD at [facility] Left: Eye CEDRIC & CEDRIC 09/30/2027 DCB0 [id number] / [id number] / [id number] Procedures Procedure Name Priority Date/Time Associated Diagnosis Comments EXTCAP RMVL INSERT INTRAOC PROSTH W/ECP 12/16/2024 12:01 PM CDT VISUALLY SIGNIFICANT CATARACT, LEFT EYE Special Needs Resides at [facility], facility will provide transportation, patient signs own consents. Georgette (HCPOA) will be here. HCPOA & POLST/DNR in media. Hx of low back pain (limited mobility) Htn, bladder & prostate cancer. 5ft 9in 167lb EXTCAP INSERT INTROC PROSTH W/ECP 12/16/2024 12:01 PM CDT VISUALLY SIGNIFICANT CATARACT, LEFT EYE Special Needs Resides at [facility], facility will provide transportation, patient signs own consents. Georgette (HCPOA) will be here. HCPOA & POLST/DNR in media. Hx of low back pain (limited mobility) Htn, bladder & prostate cancer. 5ft 9in 167lb [place] XCAPSL CTRC RMVL INSJ IO LENS PROSTH W/O ECP 12/16/2024 12:01 PM CDT VISUALLY SIGNIFICANT CATARACT, LEFT EYE Special Needs Resides at [facility], facility will provide transportation, patient signs own consents. Georgette (HCPOA) will be here. HCPOA & POLST/DNR in media. Hx of low back pain (limited mobility) Htn, bladder & prostate cancer. 5ft 9in 167lb REMV CATARACT INTRACAP,INSERT LENS 12/16/2024 12:01 PM CDT VISUALLY SIGNIFICANT CATARACT, LEFT EYE Special Needs Resides at [facility], facility will provide transportation, patient signs own consents. Georgette (HCPOA) will be here. HCPOA & POLST/DNR in media. Hx of low back pain (limited mobility) Htn, bladder & prostate cancer. 5ft 9in 167lb [place] XCAPSL CTRC RMVL INSJ IO LENS PROSTH CPLX WO ECP 12/16/2024 12:01 PM CDT VISUALLY SIGNIFICANT CATARACT, LEFT EYE Special Needs Resides at [facility], facility will provide transportation, patient signs own consents. Georgette (HCPOA) will be here. HCPOA & POLST/DNR in media. Hx of low back pain (limited mobility) Htn, bladder & prostate cancer. 5ft 9in 167lb EXTCAP RMVL INSERT INTRAOC PROSTH W/ECP 11/25/2024 10:13 AM CDT VISUALLY SIGNIFICANT CATARACT, RIGHT EYE Special Needs Resides at [facility]-facility will provide transportation, patient signs own consents, Georgette (HCPOA) will be here, POLST in media Hx of Low back pain (limited mobility) Htn, bladder & prostate cancer 5ft 9in 165lb EXTCAP INSERT INTROC PROSTH W/ECP 11/25/2024 10:13 AM CDT VISUALLY SIGNIFICANT CATARACT, RIGHT EYE [facility], patient signs own consents, Georgette (HCPOA) will be here, POLST in media Hx of Low back pain (limited mobility) Htn, bladder & prostate cancer 5ft 9in 165lb [place] XCAPSL CTRC RMVL INSJ IO LENS PROSTH W/O ECP 11/25/2024 10:13 AM CDT VISUALLY SIGNIFICANT CATARACT, RIGHT EYE Special Needs Resides at [facility] will provide transportation, patient signs own consents, Georgette (HCPOA) will be here, POLST in media Hx of Low back pain (limited mobility) Htn, bladder & prostate cancer 5ft 9in 165lb REMV CATARACT INTRACAP,INSERT LENS 11/25/2024 10:13 AM CDT VISUALLY SIGNIFICANT CATARACT, RIGHT EYE Special Needs Resides at [facility] will provide transportation, patient signs own consents, Georgette (HCPOA) will be here, POLST in media Hx of Low back pain (limited mobility) Htn, bladder & prostate cancer 5ft 9in 165lb [place] XCAPSL CTRC RMVL INSJ IO LENS PROSTH CPLX WO ECP 11/25/2024 10:13 AM CDT VISUALLY SIGNIFICANT CATARACT, RIGHT EYE Special Needs Resides at [facility] will provide transportation, patient signs own consents, Georgette (HCPOA) will be here, POLST in media Hx of Low back pain (limited mobility) Htn, bladder & prostate cancer 5ft 9in 165lb from Last 3 Months Insurance MEDICARE Advance Directives Documents on File Type Date Recorded Patient Manager Hair Expl anation Power of Senior Backup Administrator for Health Care 12/06/2024 3:46 PM POA 01/02/2024 POLST/POST/[place] DNR 11/15/2024 2:34 PM POLST FORM Care Teams Nuclear Equipment Research Engineer Relationship Specialty Start Date End Date Kyle Soares MD [address] [place], [place] [id number] PCP - General Pediatrics 11/25/24
--- OUTSIDE RECORDS SUMMARY | 2025-01-23 07:26 | XMS_ITS | Clinical Summary ---
Author Organization [facility] Address [address] [place] [address] Care Team Providers Care Aircraft Riveter Name Role Phone Kyle Soares MD Primary Care Provider [phone] Social History Tobacco Use Types Packs/Day Years [...] RSV Immunization or 60+ Years Completed 02/17/2023 Hepatitis A Vaccines Aged Out No long er eligible based on patient's age to complete this topic Meningococcal B Vaccine Aged Out No l onger eligible based on patient's age to complete this topic Meningococcal Vaccine Aged Out No bev roque eligible based on patient's age to complete this topic RSV Immunizations Under 20 Months Aged Out No longer eligible based on patient's age to complete this topic Insurance AARP MEDICARE Care Teams Aircraft Riveter Relationship Specialty Start Date End Date Kyle Soares MD [address] [place] [address] PCP - General FAMILY PRACTICE 08/16/24
== END 2025-01-23 07:20 | disposition home or self-care (01) ==
LOC: CHSIMG 07:21
PROVIDERS: PCP Family Medicine; Visit Provider Family Medicine
DX: R10.0 Acute abdomen (principal); R14.0 Abdominal distension (gaseous)
CPT/HCPCS: 74177; Q9967

== ENCOUNTER 2025-02-07 11:15 | Outpatient (CLI) | payer MEDICARE, SELFPAY ==
--- NOTE | ~2025-02-07 | XR_ITS ---
Abdominal radiograph(s) INDICATION: Constipation COMPARISON: CT abdomen and pelvis 01/23/2025 TECHNIQUE: 2 views AP abdomen FINDINGS: Severe gaseous distention of right hemicolon. Distal colon with scattered gas and stool. Small bowel loops not well seen. No evidence of organomegaly. No abnormal abdominal calcifications. No acute bony abnormality. IMPRESSION: 1. Severe gaseous distention of right hemicolon. 2. Moderate gas and stool within distal colon. Reviewed, dictated and finalized at location R.
--- OUTSIDE RECORDS SUMMARY | 2025-02-07 11:30 | XMS_ITS | Clinical Summary ---
Author Organization [facility] Address [address] [place] [address] Care Team Providers Care Horse Shoer Name Role Phone Kyle Soares MD Primary Care Provider [phone] Social History Tobacco Use Types Packs/Day Years [...] topic Meningococcal Vaccine Aged Out No bev rqoue eligible based on patient's age to complete this topic RSV Immunizations Under 20 Months Aged Out No longer eligible based on patient's age to complete this topic Insurance AARP MEDICARE Care Teams Horse Shoer Relationship Specialty Start Date End Date Kyle Soares MD [address] [place] [address] PCP - General FAMILY PRACTICE 08/16/24
--- OUTSIDE RECORDS SUMMARY | 2025-02-07 11:30 | XMS_ITS | Clinical Summary ---
Author Organization [facility] Address [address] [place] [address] Phone Care Team Providers Care Child Development Director Name Role Phone Kyle Soares MD Primary Care Provider [phone]- [phone] Allergies Active Allergy Reactions Criticality Noted Date [...] CDT - 12/16/2024 12:40 PM CDT Surgery [facility] Periop [address] [place] [address] Krystyna Carmen MD PhD CATARACT EXTRACTION WITH INTRAOCULAR LENS PLACEMENT, LEFT EYE 12/16/2024 12:09 PM CDT Anesthesia Event [facility] Periop [address] [place] [address] Kel De Jesus APRN, MAINTENANCE OF WAY FOREMAN 12/16/2024 10:52 AM CDT - 12/16/2024 12:31 PM CDT Hospital Encounter [facility] Preop/Pacu II [address] [place] [address] Krystyna Carmen MD PhD Discharge Disposition: Discharged to home or Selfcare 12/16/2024 Travel 12/11/2024 Travel 11/25/2024 10:23 AM CDT Anesthesia Event [facility] [address]iop [address] [place] [address] Kel De Jesus APRN, MAINTENANCE OF WAY FOREMAN 11/25/2024 10:20 AM CDT - 11/25/2024 10:40 AM CDT Surgery [facility] Periop [address] [place] [address] Krystyna Carmen MD PhD CATARACT EXTRACTION WITH INTRAOCULAR LENS PLACEMENT, RIGHT EYE 11/25/2024 9:11 AM CDT - 11/25/2024 10:47 AM CDT Hospital Encounter [facility] Preop/Pacu II [address] [place] [address] Krystyna Carmen MD PhD Discharge Disposition: Discharged [...] on file Medical Devices Implanted Type Area Supervisor Scrap Preparation Device Identifier Shelf Expiration Date Model / Serial / Lot Right Lens Implanted:Qty: 1 on 11/25/2024 by Krystyna Carmen MD PhD at [facility] Right: Eye C[employer]RIC [employer] CEDRIC 09/25/2027 DCB00 / DCB00 / [id number] Tecnis 1-Piece Iol With Technis Simplicity Delivery System Implanted:Qty: 1 on 12/16/2024 by Krystyna Carmen MD PhD at [facility] Left: Eye CEDRIC [employer] CEDRIC 09/30/2027 DCB0 [id number] / [id number] / [id number] Procedures Procedure Name Priority Date/Time Associated Diagnosis Comments EXTCAP RMVL INSERT INTRAOC PROSTH W/ECP 12/16/2024 12:01 PM CDT VISUALLY SIGNIFICANT CATARACT, LEFT EYE Special Needs Resides at [facility], facility will provide transportation, patient signs own consents. Georgette (HCPOA) will be here. HCPOA & POLST/DNR in media. Hx of low back pain (limited mobility) Htn, bladder & prostate cancer. 5ft 9in 167lb EXTCAP INSERT INTROC PROSTH W/ECP 12/16/2024 12:01 PM CDT VISUALLY SIGNIFICANT CATARACT, LEFT EYE Special Needs Resides at [facility], facility will provide transportation, patient signs own consents. Georgette (HCPOA) will be here. HCPOA & POLST/DNR in media. Hx of low back pain (limited mobility) Htn, bladder & prostate cancer. 5ft 9in 167lb [place] XCAPSL CTRC RMVL INSJ IO LENS PROSTH W/O ECP 12/16/2024 12:01 PM CDT VISUALLY SIGNIFICANT CATARACT, LEFT EYE Special Needs Resides at [facility], facility will provide transportation, patient signs own consents. Georgette (HCPOA) will be here. HCPOA & POLST/DNR in media. Hx of low back pain (limited mobility) Htn, bladder & prostate cancer. 5ft 9in 167lb REMV CATARACT INTRACAP,INSERT LENS 12/16/2024 12:01 PM CDT VISUALLY SIGNIFICANT CATARACT, LEFT EYE Special Needs Resides at [facility], facility will provide transportation, patient signs own consents. Georgette (HCPOA) will be here. HCPOA & POLST/DNR in media. Hx of low back pain (limited mobility) Htn, bladder & prostate cancer. 5ft 9in 167lb [place] XCAPSL CTRC RMVL INSJ IO LENS PROSTH CPLX WO ECP 12/16/2024 12:01 PM CDT VISUALLY SIGNIFICANT CATARACT, LEFT EYE Special Needs Resides at [facility], facility will provide transportation, patient signs own consents. Georgette (HCPOA) will be here. HCPOA & POLST/DNR in media. Hx of low back pain (limited mobility) Htn, bladder & prostate cancer. 5ft 9in 167lb EXTCAP RMVL INSERT INTRAOC PROSTH W/ECP 11/25/2024 10:13 AM CDT VISUALLY SIGNIFICANT CATARACT, RIGHT EYE Special Needs Resides at [facility]fac[facility] will provide transportation, patient signs own consents, Georgette (HCPOA) will be here, POLST in media Hx of Low back pain (limited mobility) Htn, bladder & prostate cancer 5ft 9in 165lb EXTCAP INSERT INTROC PROSTH W/ECP 11/25/2024 10:13 AM CDT VISUALLY SIGNIFICANT CATARACT, RIGHT EYE [facility], patient signs own consents, Georgette (HCPOA) will be here, POLST in media Hx of Low back pain (limited mobility) Htn, bladder & prostate cancer 5ft 9in 165lb [place] XCAPSL CTRC RMVL INSJ IO LENS PROSTH W/O ECP 11/25/2024 10:13 AM CDT VISUALLY SIGNIFICANT CATARACT, RIGHT EYE Special Needs Resides at [facility] will provide transportation, patient signs own consents, Georgette (HCPOA) will be here, POLST in media Hx of Low back pain (limited mobility) Htn, bladder & prostate cancer 5ft 9in 165lb REMV CATARACT INTRACAP,INSERT LENS 11/25/2024 10:13 AM CDT VISUALLY SIGNIFICANT CATARACT, RIGHT EYE Special Needs Resides at [facility] will provide transportation, patient signs own consents, Georgette (HCPOA) will be here, POLST in media Hx of Low back pain (limited mobility) Htn, bladder & prostate cancer 5ft 9in 165lb [place] XCAPSL CTRC RMVL INSJ IO LENS PROSTH CPLX WO ECP 11/25/2024 10:13 AM CDT VISUALLY SIGNIFICANT CATARACT, RIGHT EYE Special Needs Resides at [facility] will provide transportation, patient signs own consents, Georgette (HCPOA) will be here, POLST in media Hx of Low back pain (limited mobility) Htn, bladder & prostate cancer 5ft 9in 165lb from Last 3 Months Insurance MEDICARE Advance Directives Documents on File Type Date Recorded Patient Glass Lathe Operator Expl anation Power of Wealth Management Manager for Health Care 12/06/2024 3:46 PM POA 01/02/2024 POLST/POST/[place] DNR 11/15/2024 2:34 PM POLST FORM Care Teams Child Development Director Relationship Specialty Start Date End Date Kyle Soares MD [address] [place], [place] [id number] PCP - General Pediatrics 11/25/24
== END 2025-02-07 11:16 | disposition home or self-care (01) ==
PROVIDERS: PCP Family Medicine; Visit Provider Family Medicine
DX: K59.00 Constipation, unspecified (principal); R14.0 Abdominal distension (gaseous)
CPT/HCPCS: 74018

== ENCOUNTER 2025-02-27 22:48 | Emergency (ER) | payer MEDICARE, SELFPAY ==
--- NOTE | ~2025-02-27 | CT_ITS ---
CT abdomen pelvis w con Clinical History: RIGHT ABDOMEN PAIN/VOMITING . Comparison: 01/23/2025 CT abdomen pelvis Technique: Axial images lung bases to symphysis pubis 100 mL Omnipaque 350 Coronal, sagittal reformats CT images acquired with automatic exposure control for dose reduction DLP: 523 mGy-cm Findings: Lung bases: Mild atelectasis. Visualized heart and pericardium: Cardiomegaly. Coronary artery calcifications. Liver: A few cysts. Gallbladder: Unremarkable. Spleen: Unremarkable. Pancreas: Unremarkable. Adrenal glands: Possible small left nodule. Kidneys: Right kidney- No hydronephrosis. No renal stones. Left kidney- No hydronephrosis. No renal stones. Distal esophagus/stomach: Stomach distended. Small bowel loops: Normal caliber and wall thickness. A few air-fluid levels. Colon: Gaseous distention, air-fluid levels. Appendix not seen. Presacral stranding. Nodes: No enlarged nodes. Peritoneum: No ascites. No free air. Urinary bladder: Unremarkable. Prostate: Probably removed. Bones: No acute bony abnormality. Soft tissues: Unremarkable. Aorta: No aneurysm or dissection. IVC: Unremarkable. Main portal vein/SMV/splenic vein: Patent. IMPRESSION: 1. Gaseous distention distal colonic loops. Possible enterocolitis. 2. Stomach markedly distended. Reviewed, dictated and finalized at location R. WORKER
[2025-02-27 22:48] VITALS: BP 108/67; PULSE 76; RESP 18; TEMP 36.8; O2SAT 95
--- OUTSIDE RECORDS SUMMARY | 2025-02-27 22:50 | XMS_ITS | Clinical Summary ---
Author Organization [facility] Address [address] [place] [address] Phone Care Team Providers Care Product Development Engineer Name Role Phone Kyle Soares MD Primary Care Provider +- [phone] Allergies Active Allergy Reactions Criticality Noted Date [...] (FLONASE) 50 MCG/ACT SuspensionIndic ations:Allergic Rhinitis 1 [place] by Nasal route daily. Use in each [...] naloxone HCl (Narcan) 4 MG/0.1ML Liquid 1 [place] by Nasal route as needed for Opioid [...] CDT - 12/16/2024 12:40 PM CDT [facility] [address] [place] [address] Krystyna Carmen MD PhD CATARACT EXTRACTION WITH INTRAOCULAR LENS PLACEMENT, LEFT EYE 12/16/2024 12:09 PM CDT [facility] [address] [place] [address] Kel De Jesus APRN, RABBLE FURNACE TENDER 12/16/2024 10:52 AM CDT - 12/16/2024 12:31 PM CDT [facility] [address] [place] [address] Krystyna Carmen MD PhD Discharge Disposition: Discharged to home or Selfcare 12/16/2024 Travel 12/11/2024 Travel from Last 3 Months Social History [...] on file Medical Devices Implanted Type Area Podiatry Teacher Device Identifier Shelf Expiration Date Model / Serial / Lot Right Lens Implanted:Qty: 1 on 11/25/2024 by Krystyna Carmen MD PhD at [facility] Right: Eye [employer] 09/25/2027 DCB00 / [id number] / [id number] Tecnis 1-Piece Iol With [email or web address] Simplicity Delivery System Implanted:Qty: 1 on 12/16/2024 by Krystyna Carmen MD PhD at [facility] Left: Eye [employer] 09/30/2027 DCB0 [id number] / [id number] / [id number] Procedures Procedure Name Priority Date/Time Associated Diagnosis Comments EXTCAP RMVL INSERT INTRAOC PROSTH W/ECP 12/16/2024 12:01 PM CDT VISUALLY SIGNIFICANT CATARACT, LEFT EYE Special Needs Resides at [facility], facility will provide transportation, patient signs own consents. Georgette (HCPOA) will be here. HCPOA & POLST/DNR in media. Hx of low back pain (limited mobility) Htn, bladder & prostate cancer. 5ft 9in 167lb EXTCAP INSERT INTROC PROSTH W/ECP 12/16/2024 12:01 PM CDT VISUALLY SIGNIFICANT CATARACT, LEFT EYE Special Needs Resides at [facility], facility will provide transportation, patient signs own consents. Georgette (HCPOA) will be here. HCPOA & POLST/DNR in media. Hx of low back pain (limited mobility) Htn, bladder & prostate cancer. 5ft 9in 167lb MT XCAPSL CTRC RMVL INSJ IO LENS PROSTH W/O ECP 12/16/2024 12:01 PM CDT VISUALLY SIGNIFICANT CATARACT, LEFT EYE Special Needs Resides at [facility], facility will provide transportation, patient signs own consents. Georgette (HCPOA) will be here. HCPOA & POLST/DNR in media. Hx of low back pain (limited mobility) Htn, bladder & prostate cancer. 5ft 9in 167lb REMV CATARACT INTRACAP,INSERT LENS 12/16/2024 12:01 PM CDT VISUALLY SIGNIFICANT CATARACT, LEFT EYE Special Needs Resides at [facility], facility will provide transportation, patient signs own consents. Georgette (HCPOA) will be here. HCPOA & POLST/DNR in media. Hx of low back pain (limited mobility) Htn, bladder & prostate cancer. 5ft 9in 167lb MT XCAPSL CTRC RMVL INSJ IO LENS PROSTH CPLX WO ECP 12/16/2024 12:01 PM CDT VISUALLY SIGNIFICANT CATARACT, LEFT EYE Special Needs Resides at [facility], facility will provide transportation, patient signs own consents. Georgette (HCPOA) will be here. HCPOA & POLST/DNR in media. Hx of low back pain (limited mobility) Htn, bladder & prostate cancer. 5ft 9in 167lb from Last 3 Months Insurance MEDICARE Advance Directives Documents on File Type Date Recorded Patient Contact Lens Flashing Puncher Expl anation Power of Nutrition Instructor for Health Care 12/06/2024 3:46 PM POA 01/02/2024 POLST/POST/AR DNR 11/15/2024 2:34 PM POLST FORM Care Teams Product Development Engineer Relationship Specialty Start Date End Date Kyle Soares MD [address] [place] [address] PCP - General Pediatrics 11/25/24
--- NOTE | 2025-02-27 23:08 | ED.ABDPAIN ---
HPI - Abdominal Pain General Chief Complaint: Abdominal Pain Stated Complaint: Diarrhea/vomiting Time Seen by Provider: 02/27/25 23:05 Source: patient and EMS Mode of arrival: EMS Limitations: physical limitation History of Present Illness HPI narrative: This is a 80-year-old male senior care patient with history of atrial fibrillation presents with some episodes of abdominal pain with constipation nausea vomiting with no fever chills no chest pain or shortness of breath. Patient is a DNR, presents from the senior care with no fever chills no dysuria no flank pain or hematuria. MD elicited complaint: abdominal pain Pertinent past history: constipation Onset (ago): day(s) Pain Consistency: constant Location: diffuse Severity: moderate Quality: fullness Migration to: no migration Associated symptoms: nausea, vomiting, diarrhea and constipation Related Data Home Medications ?Medication ?Instructions ?Recorded ?Confirmed ?Last Taken ?Type apixaban 5 mg tablet (Eliquis) 5 mg PO Q12H 05/20/24 09/10/24 Unknown History Held on 06/26/24. Instructions: not on current med list pravastatin 20 mg tablet 20 mg PO DAILY 05/20/24 09/10/24 Unknown History Allergies Allergy/AdvReac Type Severity Reaction Status Date / Time No Known Allergies Allergy Verified 02/27/25 23:50 Review of Systems Review of Systems: All systems reviewed & are unremarkable except as noted in HPI and below PMFSH Past Medical History Medical History CVA (cerebral vascular accident) Depression Cataracts, bilateral Glaucoma Hemorrhoids GERD (gastroesophageal reflux disease) BPH (benign prostatic hyperplasia) Peripheral vascular disease Atrial fibrillation Hyperlipidemia Hypertension Chronic back pain Surgical History Surgical History History of bladder surgery H/O prostatectomy Social History Social History Smoking packs per day: 2 Smoking cigarettes per day: 40.0 Years smoked: 7 Smoking pack-years: 14.00 Smoking status: Former smoker Tobacco type: cigarettes, pipe and cigars Second hand tobacco smoke exposure: No Smoking end date: 05/20/73 Alcohol intake: never Substance use: never Substance use type: does not use Do You Feel Safe in your Home?: No Lack of Transportation: YES Lack of Food: Never True Current Housing: I Have Housing Concerned About Future Housing: No Difficulty Paying Gas/Electric Bills: No Difficulty Paying for Meds: No Currently Unemployed: No Education: Bachelor's Degree Difficulty w/ Childcare or Family Care: No Spiritual care concerns: No Exam Const: General: no acute distress Nutritional Appearance: thin Limitations: physical limitations Neck: Neck: normal visual inspection Chest: Chest palpation & inspection: normal inspection of the chest Resp: Effort & Inspection: normal respiratory effort Auscultation: clear to auscultation bilaterally Cardio: Rate: regular rate Rhythm: regular rhythm GI: GI Palp: Yes Tenderness to palpation present (GI) Auscultation: normal bowel sounds : General: Yes bladder normal to palpation Skin: General skin exam: normal color Rashes: no rashes Wounds: no wounds Neuro: General: patient oriented x3 and moves all extremities Extrem: General: normal to inspection Course Course Emergency Course: Medical decision making narrative: The patient was evaluated by myself in the emergency department. History obtained from the patient was independent historian physical exam performed and witnessed by nurse. Labs reviewed white count within normal range CT scan shows no acute obstruction does have areas constipation with enteritis. Repeat assessment: Patient doing well on repeat exam with no acute distress Symptoms stable since arrival to the emergency department Repeat vitals are stable Patient agrees with discussion after shared medical decision decision making and agrees with discharge back to the senior care All questions answered to the patient's satisfaction Advised follow-up with primary within the next 3 to 5 days. Vital Signs Vital signs: Vital Signs Temperature 36.8 C 02/27/25 22:48 Pulse Rate 76 02/27/25 22:48 Respiratory Rate 18 02/27/25 22:48 Blood Pressure 108/67 02/27/25 22:48 Pulse Oximetry 95 02/27/25 22:48 Oxygen Delivery Room Air 02/27/25 22:48 Temperature 36.8 C 02/27/25 22:48 Pulse Rate 76 02/27/25 22:48 Respiratory Rate 18 02/27/25 22:48 Blood Pressure 108/67 02/27/25 22:48 Pulse Oximetry 95 02/27/25 22:48 Oxygen Delivery Room Air 02/27/25 22:48 MDM - Abdominal Pain Lab Data 02/27/25 23:26 02/27/25 23:26 Labs: Lab Results 02/27/25 Range/Units 23:26 WBC 7.4 (4.8-10.8) K/mm3 RBC 3.46 L (4.70-6.10) M/mm3 Hgb 10.7 L (12.4-15.3) g/dL Hct 32.5 L (37.0-46.0) % MCV 93.9 (78.0-102.0) fL MCH 30.9 (27.0-31.0) pg MCHC 32.9 (32-36) g/dL RDW 12.5 (11.6-14.4) % Plt Count 192 (150-420) K/mm3 MPV 11.1 H (8.7-11.0) fl Immature Gran % (Auto) 0.5 H (0.0-0.0) % Neut % (Auto) 85.7 H (50.0-70.0) % Lymph % (Auto) 7.1 L (18.0-42.0) % Crane % (Auto) 6.0 (2.0-11.0) % Eos % (Auto) 0.4 L (1.0-6.0) % Baso % (Auto) 0.3 (0.0-1.0) % Lymph # (Auto) 0.52 L (1.10-4.50) K/mm3 Crane # (Auto) 0.44 (0.10-0.90) K/mm3 Eos # (Auto) 0.03 (0.02-0.50) K/mm3 Baso # (Auto) 0.02 (0.00-0.10) K/mm3 Abs Immat Gran (auto) 0.04 H (0.00-0.00) K/mm3 Absolute Neuts (auto) 6.32 (1.70-7.20) K/mm3 Absolute Nucleated RBC 0.00 (0.00-0.00) K/mm3 Nucleated RBC % 0.0 (0-0.0) % PT 11.5 (9.50-12.1) Seconds INR 1.0 APTT 30.4 (23.9-30.70) Sec Sodium 139 (137-145) mmol/L Potassium 3.5 (3.4-5.0) mmol/L Chloride 96 L (98-107) mmol/L Carbon Dioxide 32 H (22-30) mmol/L Anion Gap 11 (4-12) mmol/L BUN 21 H (9-20) mg/dL Creatinine 1.22 (0.7-1.3) mg/dL Estim Creat Clear Calc Not Reportable Estimated GFR 57 L (59 - ) Glucose 141 H (65-110) mg/dL Calculated Osmolality 293 (285-295) mOsm/kg Lactic Acid 1.3 (0.7-2.0) mmol/L Calcium 8.6 (8.4-10.2) mg/dL Total Bilirubin 0.6 (0.2-1.3) mg/dL AST 39 (17-59) U/L ALT 14 (6-50) U/L Alkaline Phosphatase 91 (38-126) U/L Total Protein 6.9 (6.3-8.2) g/dL Albumin 4.0 (3.5-5.1) g/dL Lipase 161 (23-300) U/L Critical Care Time Critical Care Time Critical Care Time: No Discharge Plan Discharge Clinical Impression: Constipation Qualifiers: Constipation type: unspecified constipation type Qualified Code(s): K59.00 - Constipation, unspecified Patient Disposition: MO Care Home/Asst Living Condition: Stable Instructions: Antibiotic Form, Constipation (ED), Acute Nausea and Vomiting (ED) Additional Instructions: Advised take medication as prescribed and to follow up with primary within next 3 to 5 days further evaluation and treatment. Patient Language: Namibian Prescriptions: New Linzess 72 mcg capsule 72 mcg PO DAILY Qty: 20 0RF ondansetron 4 mg tablet,disintegrating 4 mg PO Q6H PRN (Reason: nausea and vomiting) Qty: 14 0RF No Action pravastatin 20 mg tablet 20 mg PO DAILY Eliquis 5 mg tablet 5 mg PO Q12H acetaminophen 325 mg Tablet 650 mg PO Q4H PRN (Reason: Mild Pain (1-3) Or Fever) Qty: 10 0RF lidocaine [Lidoderm] 5 % Adhesive Patch,Medicated 1 patch transdermal DAILY Qty: 15 0RF oxycodone-acetaminophen 5-325 mg Tablet 1 tablet PO Q4H PRN (Reason: Pain Rated 4-6) Qty: 20 0RF morphine 15 mg Tablet Extended Release 15 mg PO Q12HR Qty: 10 0RF amlodipine [Norvasc] 5 mg tablet 5 mg PO DAILY Qty: 10 0RF prednisone 50 mg tablet 50 mg PO DAILY Qty: 5 0RF Follow-up/Referrals: Kyle Soares MD [Primary Care Provider, Internal Medicine] Stand Alone Forms: Shelter Discharge Time of Disposition: 00:29
--- OUTSIDE RECORDS SUMMARY | 2025-02-27 23:25 | XMS_ITS | Clinical Summary ---
Author Organization [facility] Address [address] [place] [address] Phone Care Team Providers Care Steam Shovelman Name Role Phone Kyle Soares MD Primary Care Provider +- [phone] Allergies Active Allergy Reactions Criticality Noted Date [...] (FLONASE) 50 MCG/ACT SuspensionIndic ations:Allergic Rhinitis 1 [place] by Nasal route daily. Use in each [...] naloxone HCl (Narcan) 4 MG/0.1ML Liquid 1 [place] by Nasal route as needed for Opioid [...] CDT - 12/16/2024 12:40 PM [facility] [address] [place] [address] Krystyna Carmen MD PhD CATARACT EXTRACTION WITH INTRAOCULAR LENS PLACEMENT, LEFT EYE 12/16/2024 12:09 PM CDT [facility] [address] [place] [address] Kel De Jesus APRN, PRICING/SIGNAGE TEAM MEMBER 12/16/2024 10:52 AM CDT - 12/16/2024 12:31 PM CDT [facility] [address] [place] [address] Krystyna Carmen MD PhD Discharge Disposition: Discharged [...] on file Medical Devices Implanted Type Area Spray Painter Helper Device Identifier Shelf Expiration Date Model / Serial / Lot Right Lens Implanted:Qty: 1 on 11/25/2024 by Krystyna Carmen MD PhD at [facility] Right: Eye [employer] 09/25/2027 DCB00 / DCB00 / [id number] Tecnis 1-Piece Iol With [employer] Simplicity Delivery System Implanted:Qty: 1 on 12/16/2024 by Krystyna Carmen MD PhD at [facility] Left: Eye [employer] 09/30/2027 DCB0 [id number] / [id number] / [id number] Procedures Procedure Name Priority Date/Time Associated Diagnosis Comments EXTCAP RMVL INSERT INTRAOC PROSTH W/ECP 12/16/2024 12:01 PM CDT VISUALLY SIGNIFICANT CATARACT, LEFT EYE Special Needs Resides at [facility], facility will provide transportation, patient signs own consents. Georgette (HCPOA) will be here. HCPOA & POLST/DNR in media. Hx of low back pain (limited mobility) Htn, bladder & prostate cancer. 5ft 9in 167lb EXTCAP INSERT INTROC PROSTH W/ECP 12/16/2024 12:01 PM CDT VISUALLY SIGNIFICANT CATARACT, LEFT EYE Special Needs Resides at [facility], facility will provide transportation, patient signs own consents. Georgette (HCPOA) will be here. HCPOA & POLST/DNR in media. Hx of low back pain (limited mobility) Htn, bladder & prostate cancer. 5ft 9in 167lb CT XCAPSL CTRC RMVL INSJ IO LENS PROSTH W/O ECP 12/16/2024 12:01 PM CDT VISUALLY SIGNIFICANT CATARACT, LEFT EYE Special Needs Resides at [facility], facility will provide transportation, patient signs own consents. Georgette (HCPOA) will be here. HCPOA & POLST/DNR in media. Hx of low back pain (limited mobility) Htn, bladder & prostate cancer. 5ft 9in 167lb REMV CATARACT INTRACAP,INSERT LENS 12/16/2024 12:01 PM CDT VISUALLY SIGNIFICANT CATARACT, LEFT EYE Special Needs Resides at [facility], facility will provide transportation, patient signs own consents. Georgette (HCPOA) will be here. HCPOA & POLST/DNR in media. Hx of low back pain (limited mobility) Htn, bladder & prostate cancer. 5ft 9in 167lb CT XCAPSL CTRC RMVL INSJ IO LENS PROSTH CPLX WO ECP 12/16/2024 12:01 PM CDT VISUALLY SIGNIFICANT CATARACT, LEFT EYE Special Needs Resides at [facility], facility will provide transportation, patient signs own consents. Georgette (HCPOA) will be here. HCPOA & POLST/DNR in media. Hx of low back pain (limited mobility) Htn, bladder & prostate cancer. 5ft 9in 167lb from Last 3 Months Insurance MEDICARE Advance Directives Documents on File Type Date Recorded Patient K 9 Handler/ Deputy Expl anation Power of Molder Floor for Health Care 12/06/2024 3:46 PM POA 01/02/2024 POLST/POST/FL DNR 11/15/2024 2:34 PM POLST FORM Care Teams Steam Shovelman Relationship Specialty Start Date End Date Kyle Soares MD [address] [place] [address] PCP - General Pediatrics 11/25/24
[2025-02-27 23:31] LABS: Hematocrit 32.5 % (37.0-46.0); Hemoglobin 10.7 g/dL (12.4-15.3); Immature Granulocyte Percent A 0.5 % (0.0-0.0); Lymphocytes Absolute Auto 0.52 K/mm3 (1.10-4.50); Mean Corpuscular HGB Conc 32.9 g/dL (32-36); Mean Corpuscular Hemoglobin 30.9 pg (27.0-31.0); Mean Corpuscular Volume 93.9 fL (78.0-102.0); Nucleated Red Blood Cells Absolute Auto 0.00 K/mm3 (0.00-0.00); Nucleated Red Blood Cells Perc 0.0 % (0-0.0); Platelet Count Result 192 K/mm3 (150-420); Red Blood Count 3.46 M/mm3 (4.70-6.10); White Blood Count 7.4 K/mm3 (4.8-10.8)
[2025-02-27 23:43] LABS: Alanine Aminotransferase 14 U/L (6-50); Albumin Level 4.0 g/dL (3.5-5.1); Alkaline Phosphatase 91 U/L (38-126); Anion Gap 11 mmol/L (4-12); Aspartate Amino Transferase 39 U/L (17-59); Bilirubin,Total 0.6 mg/dL (0.2-1.3); Blood Urea Nitrogen 21 mg/dL (9-20); Calcium 8.6 mg/dL (8.4-10.2); Carbon Dioxide 32 mmol/L (22-30); Chloride 96 mmol/L (98-107); Estimated Glomerular Filt Rate 57; Glucose 141 mg/dL (65-110); Lipase 161 U/L (23-300); Osmolality Calculated 293 mOsm/kg (285-295); Potassium 3.5 mmol/L (3.4-5.0); Sodium 139 mmol/L (137-145); Total Protein 6.9 g/dL (6.3-8.2)
[2025-02-27 23:45] LABS: INR 1.0; Partial Thromboplastin Time 30.4 Sec (23.9-30.70); Prothrombin Time 11.5 Seconds (9.50-12.1)
[2025-02-28 00:53] VITALS: BP 99/61; PULSE 88; RESP 19; TEMP 36.7; O2SAT 94
--- NOTE | 2025-03-03 13:01 | PC.NURSE ---
preliminaryblood cultures x2 reviewed. no growth in 24 hours
--- NOTE | 2025-03-04 12:48 | PC.NURSE ---
PRELIMINARY BLOOD CULTURE REPORT: NO GROWTH IN 48 HOURS. WAITING ON FINAL REPORT.
--- NOTE | 2025-03-06 14:20 | PC.NURSE ---
blood culture, preliminary, no growth
--- NOTE | 2025-03-07 17:16 | PC.NURSE ---
blood culture, final no growth
== END 2025-02-28 01:02 ==
PROVIDERS: Emergency Provider Emergency Medicine; PCP Family Medicine
DX: K59.00 Constipation, unspecified (principal); I48.91 Unspecified atrial fibrillation; E78.5 Hyperlipidemia, unspecified; I10 Essential (primary) hypertension; Z86.73 Personal history of transient ischemic attack (TIA), and cerebral infarction without residual deficits; Z87.891 Personal history of nicotine dependence
CPT/HCPCS: 36415; 74177; 80053; 83605; 83690; 85025; 85610; 85730; 99284; Q9967

== ENCOUNTER 2025-03-10 13:29 | Emergency (ER) | payer MEDICARE, SELFPAY ==
[2025-03-10] VITALS (47 sets, daily range): BP systolic 105–148; BP diastolic 70–96; PULSE 70–105; RESP 13–24; TEMP 36.5–36.6; O2SAT 91–98
--- NOTE | 2025-03-10 13:44 | ED_ITS ---
HPI - GI Bleed General Chief complaint: Nausea/Vomiting/Diarrhea Stated complaint: VOMITING UP BLOOD Time Seen by Provider: 03/10/25 13:43 Source: patient and EMS Mode of arrival: EMS Limitations: no limitations History of Present Illness HPI Narrative: 80 years old white male came from [place] with vomiting up coffee-ground material up to 5 time prior to arrival to the emergency room. He denies any fever, chills, diarrhea, constipation or history of GI bleed in the past. In the ED patient complaining of chronic abdominal pain for years without specific diagnosis. History of atrial fibrillation, DNR, constipation, CVA, depression, bilateral cataract and glaucoma, hemorrhoids, GERD, peripheral vascular disorder, hyperlipidemia, hypertension, chronic lower back pain, history of bladder surgery and prostatectomy. The patient denies smoking or drinking or using drugs. Patient on Eliquis at [place] Related Data Home Medications ?Medication ?Instructions ?Recorded ?Confirmed ?Last Taken ?Type apixaban 5 mg tablet (Eliquis) 5 mg PO Q12H 05/20/24 0 09/10/24 Unknown History Held on 06/26/24. Instructions: not on current med list pravastatin 20 mg tablet 20 mg PO DAILY 05/20/24 06/0 07/02 Unknown History Allergies Allergy/AdvReac Type Severity Reaction Status Date / Time No Known Allergies Allergy Verified 03/10/25 13:41 Review of Systems 2 Review of Systems: All systems reviewed & are unremarkable except as noted in HPI and below PMFSH Past Medical History Medical History CVA (cerebral vascular accident) Depression Cataracts, bilateral Glaucoma Hemorrhoids GERD (gastroesophageal reflux disease) BPH (benign prostatic hyperplasia) Peripheral vascular disease Atrial fibrillation Hyperlipidemia Hypertension Chronic back pain Surgical History Surgical History History of bladder surgery H/O prostatectomy Social History Social History Smoking packs per day: 2 Smoking cigarettes per day: 40.0 Years smoked: 7 Smoking pack-years: 14.00 Smoking status: Former smoker Tobacco type: cigarettes, pipe and cigars Second hand tobacco smoke exposure: No Smoking end date: 05/20/73 Alcohol intake: never Substance use: never Substance use type: does not use Lack of Transportation: YES Lack of Food: Never True Current Housing: I Have Housing Concerned About Future Housing: No Difficulty Paying Gas/Electric Bills: No Difficulty Paying for Meds: No Currently Unemployed: No Education: Bachelor's Degree Difficulty w/ Childcare or Family Care: No Spiritual care concerns: No Exam 2 Narrative: General appearance: Well-developed, well-nourished Skin: Normal color Head: Normocephalic, nontraumatic Eyes: Clear conjunctiva ENT: Oropharynx normal, ears normal, nose normal Neck: Supple, nontender Chest and respiratory: Airway patent, no respiratory distress, no accessory muscle use Heart: Regular rate/rhythm Abdomen: Soft, nontender, no organomegaly, quiet bowel sounds rectal exam showed no stool in the rectal pouch, no active bleeding, no gross blood, guaiac positive Vascular: Normal peripheral pulses, normal capillary refill. Musculoskeletal: Normal range of motion, nontender back Neurologic: Alert and oriented ?3, NATURAL RESOURCES TECHNICIAN is normal as tested, no gross motor deficit Course Vital Signs Vital signs: Vital Signs Temperature 36.5 C 03/10/25 13:29 Pulse Rate 78 03/10/25 13:29 Respiratory Rate 18 03/10/25 13:29 Blood Pressure 128/82 03/10/25 13:29 Pulse Oximetry 98 03/10/25 13:29 Oxygen Delivery Room Air 03/10/25 13:29 Temperature 36.5 C 03/10/25 13:29 Pulse Rate 83 03/10/25 19:01 Respiratory Rate 13 03/10/25 19:01 Blood Pressure 124/84 03/10/25 19:01 Pulse Oximetry 95 03/10/25 19:01 Oxygen Delivery Room Air 03/10/25 18:16 MDM - GI Bleed MDM Narrative Medical decision making narrative: Patient came with vomiting coffee-ground material prior to arrival. Patient on Eliquis for atrial fibrillation and prednisone. Vital signs within normal limit Physical examination diffuse abdominal tenderness, rectal exam showed no gross blood, guaiac positive Differential diagnosis upper GI bleed, anemia, GERD, gastritis, esophagitis Blood workup today includes CBC, CMP, coags showed hemoglobin of 11.4 consistent with previous readings, otherwise within normal limit Diagnosis GI bleed In the ED patient received normal saline 100 cc/hour, Protonix 40 mg IV and Zofran 4 mg IV. Transferred to [facility] accepted by the hospitalist and nurse practitioner Ryanne Differential Diagnosis Differential diagnosis: Likely other (As above) Medical Records Attestation: I reviewed the patient's medical records. Lab Data Attestation: I reviewed the patient's lab results. 03/10/25 14:07 03/10/25 14:07 Labs: Lab Results 03/10/25 Range/Units 14:07 WBC 10.2 (4.8-10.8) K/mm3 RBC 3.74 L (4.70-6.10) M/mm3 Hgb 11.4 L (12.4-15.3) g/dL Hct 35.6 L (37.0-46.0) % MCV 95.2 (78.0-102.0) fL MCH 30.5 (27.0-31.0) pg MCHC 32.0 (32-36) g/dL RDW 12.8 (11.6-14.4) % Plt Count 207 (150-420) K/mm3 MPV 11.2 H (8.7-11.0) fl Immature Gran % (Auto) 0.5 H (0.0-0.0) % Neut % (Auto) 86.2 H (50.0-70.0) % Lymph % (Auto) 6.1 L (18.0-42.0) % Otero % (Auto) 6.2 (2.0-11.0) % Eos % (Auto) 0.7 L (1.0-6.0) % Baso % (Auto) 0.3 (0.0-1.0) % Lymph # (Auto) 0.62 L (1.10-4.50) K/mm3 Otero # (Auto) 0.63 (0.10-0.90) K/mm3 Eos # (Auto) 0.07 (0.02-0.50) K/mm3 Baso # (Auto) 0.03 (0.00-0.10) K/mm3 Abs Immat Gran (auto) 0.05 H (0.00-0.00) K/mm3 Absolute Neuts (auto) 8.84 H (1.70-7.20) K/mm3 Absolute Nucleated RBC 0.00 (0.00-0.00) K/mm3 Nucleated RBC % 0.0 (0-0.0) % PT 11.1 (9.50-12.1) Seconds INR 1.0 APTT 26.5 (23.9-30.70) Sec Sodium 141 (137-145) mmol/L Potassium 3.9 (3.4-5.0) mmol/L Chloride 98 (98-107) mmol/L Carbon Dioxide 30 (22-30) mmol/L Anion Gap 13 H (4-12) mmol/L BUN 15 D (9-20) mg/dL Creatinine 1.20 (0.7-1.3) mg/dL Estim Creat Clear Calc Not Reportable Estimated GFR 58 L (59 - ) Glucose 113 H (65-110) mg/dL Calculated Osmolality 293 (285-295) mOsm/kg Calcium 9.0 (8.4-10.2) mg/dL Magnesium 1.8 (1.6-2.3) mg/dL Total Bilirubin 0.8 (0.2-1.3) mg/dL AST 25 (17-59) U/L ALT 10 (6-50) U/L Alkaline Phosphatase 104 (38-126) U/L Total Protein 7.4 (6.3-8.2) g/dL Albumin 4.5 (3.5-5.1) g/dL Lipase 86 (23-300) U/L Stool Occult Blood Positive A (Negative) Critical Care Time Critical Care Time Critical Care Time: No Discharge Plan Discharge Clinical Impression: GI (gastrointestinal bleed) Patient Disposition: Acute Care Hospital Condition: Stable Patient Language: Lebanese Prescriptions: No Action pravastatin 20 mg tablet 20 mg PO DAILY Eliquis 5 mg tablet 5 mg PO Q12H acetaminophen 325 mg Tablet 650 mg PO Q4H PRN (Reason: Mild Pain (1-3) Or Fever) Qty: 10 0RF lidocaine [Lidoderm] 5 % Adhesive Patch,Medicated 1 patch transdermal DAILY Qty: 15 0RF oxycodone-acetaminophen 5-325 mg Tablet 1 tablet PO Q4H PRN (Reason: Pain Rated 4-6) Qty: 20 0RF morphine 15 mg Tablet Extended Release 15 mg PO Q12HR Qty: 10 0RF amlodipine [Norvasc] 5 mg tablet 5 mg PO DAILY Qty: 10 0RF prednisone 50 mg tablet 50 mg PO DAILY Qty: 5 0RF Linzess 72 mcg capsule 72 mcg PO DAILY Qty: 20 0RF ondansetron 4 mg tablet,disintegrating 4 mg PO Q6H PRN (Reason: nausea and vomiting) Qty: 14 0RF Follow-up/Referrals: Kyle Soares MD [Primary Care Provider, Internal Medicine]
[2025-03-10] MEDS: ONDANSETRON INJ 4 MG/2 ML VIAL IV PUSH ×2 (14:09→16:46)
[2025-03-10] MEDS: PANTOPRAZOLE SODIUM IV 40 MG VIAL IV PUSH (14:09)
[2025-03-10] MEDS: SODIUM CHLORIDE 0.9% IV 1,000 ML 100 ML IV CONT ×2 (14:09→19:17)
[2025-03-10 14:11] LABS: Hematocrit 35.6 % (37.0-46.0); Hemoglobin 11.4 g/dL (12.4-15.3); Immature Granulocyte Percent A 0.5 % (0.0-0.0); Lymphocytes Absolute Auto 0.62 K/mm3 (1.10-4.50); Mean Corpuscular HGB Conc 32.0 g/dL (32-36); Mean Corpuscular Hemoglobin 30.5 pg (27.0-31.0); Mean Corpuscular Volume 95.2 fL (78.0-102.0); Nucleated Red Blood Cells Absolute Auto 0.00 K/mm3 (0.00-0.00); Nucleated Red Blood Cells Perc 0.0 % (0-0.0); Platelet Count Result 207 K/mm3 (150-420); Red Blood Count 3.74 M/mm3 (4.70-6.10); White Blood Count 10.2 K/mm3 (4.8-10.8)
[2025-03-10 14:23] LABS: Alanine Aminotransferase 10 U/L (6-50); Albumin Level 4.5 g/dL (3.5-5.1); Alkaline Phosphatase 104 U/L (38-126); Anion Gap 13 mmol/L (4-12); Aspartate Amino Transferase 25 U/L (17-59); Bilirubin,Total 0.8 mg/dL (0.2-1.3); Blood Urea Nitrogen 15 mg/dL (9-20); Calcium 9.0 mg/dL (8.4-10.2); Carbon Dioxide 30 mmol/L (22-30); Chloride 98 mmol/L (98-107); Estimated Glomerular Filt Rate 58; Glucose 113 mg/dL (65-110); Lipase 86 U/L (23-300); Magnesium 1.8 mg/dL (1.6-2.3); Osmolality Calculated 293 mOsm/kg (285-295); Potassium 3.9 mmol/L (3.4-5.0); Sodium 141 mmol/L (137-145); Total Protein 7.4 g/dL (6.3-8.2)
[2025-03-10 14:27] LABS: INR 1.0; Partial Thromboplastin Time 26.5 Sec (23.9-30.70); Prothrombin Time 11.1 Seconds (9.50-12.1)
--- OUTSIDE RECORDS SUMMARY | 2025-03-10 14:35 | XMS_ITS | Clinical Summary ---
Author Organization [facility] Address [address] [place] [address] Phone Care Team Providers Care Occupational Health Nursing Director Name Role Phone Kyle Soares MD Primary Care Provider [phone]- [phone] Allergies Active Allergy Reactions Criticality Noted Date [...] (FLONASE) 50 MCG/ACT SuspensionIndic ations:Allergic Rhinitis 1 Proctor by Nasal route daily. Use in each [...] naloxone HCl (Narcan) 4 MG/0.1ML Liquid 1 Proctor by Nasal route as needed for Opioid [...] 12:40 PM CDT Surgery [facility] [address] [address] [place] [address] Krystyna Carmen MD PhD CATARACT EXTRACTION WITH INTRAOCULAR LENS PLACEMENT, LEFT EYE 12/16/2024 12:09 PM CDT Anesthesia Event [facility] [address] [place] [address] Kel De Jesus APRN, COPER HAND 12/16/2024 10:52 AM CDT - 12/16/2024 12:31 PM CDT Hospital Encounter [facility] Preop/Pacu II [address] [place] [address] Krystyna Carmen MD PhD Discharge Disposition: Discharged [...] on file Medical Devices Implanted Type Area Farm Agent Device Identifier Shelf Expiration Date Model / Serial / Lot Right Lens Implanted:Qty: 1 on 11/25/2024 by Krystyna Carmen MD PhD at [facility] Right: Eye [employer] 09/25/2027 DCB00 / DCB00 / [id number] Tecnis 1-Piece Iol With UV Memory Care Simplicity Delivery System Implanted:Qty: 1 on 12/16/2024 by Krystyna Carmen MD PhD at [facility] Left: Eye [employer]EDRIC 09/30/2027 DCB0 [id number] / [id number] / [id number] Procedures Procedure Name Priority Date/Time Associated Diagnosis Comments EXTCAP RMVL INSERT INTRAOC PROSTH W/ECP 12/16/2024 12:01 PM CDT VISUALLY SIGNIFICANT CATARACT, LEFT EYE Special Needs Resides at [facility], facility will provide transportation, patient signs own consents. Georgette (HCPOA) will be here. HCPOA & POLST/DNR in media. Hx of low back pain (limited mobility) Htn, bladder & prostate cancer. 5ft 9in 167lb EXTCAP INSERT INTROC PROSTH W/ECP 12/16/2024 12:01 PM CDT VISUALLY SIGNIFICANT CATARACT, LEFT EYE Special Needs Resides at [facility], facility will provide transportation, patient signs own consents. Georgette (HCPOA) will be here. HCPOA & POLST/DNR in media. Hx of low back pain (limited mobility) Htn, bladder & prostate cancer. 5ft 9in 167lb UT XCAPSL CTRC RMVL INSJ IO LENS PROSTH W/O ECP 12/16/2024 12:01 PM CDT VISUALLY SIGNIFICANT CATARACT, LEFT EYE Special Needs Resides at [facility], facility will provide transportation, patient signs own consents. Georgette (HCPOA) will be here. HCPOA & POLST/DNR in media. Hx of low back pain (limited mobility) Htn, bladder & prostate cancer. 5ft 9in 167lb REMV CATARACT INTRACAP,INSERT LENS 12/16/2024 12:01 PM CDT VISUALLY SIGNIFICANT CATARACT, LEFT EYE Special Needs Resides at [facility], facility will provide transportation, patient signs own consents. Georgette (HCPOA) will be here. HCPOA & POLST/DNR in media. Hx of low back pain (limited mobility) Htn, bladder & prostate cancer. 5ft 9in 167lb UT XCAPSL CTRC RMVL INSJ IO LENS PROSTH CPLX WO ECP 12/16/2024 12:01 PM CDT VISUALLY SIGNIFICANT CATARACT, LEFT EYE Special Needs Resides at [facility], facility will provide transportation, patient signs own consents. Georgette (HCPOA) will be here. HCPOA & POLST/DNR in media. Hx of low back pain (limited mobility) Htn, bladder & prostate cancer. 5ft 9in 167lb from Last 3 Months Insurance MEDICARE Advance Directives Documents on File Type Date Recorded Patient Operator Command Support Systems Expl anation Power of Legal Services Professional for Health Care 12/06/2024 3:46 PM POA 01/02/2024 POLST/POST/[place] DNR 11/15/2024 2:34 PM POLST FORM Care Teams Occupational Health Nursing Director Relationship Specialty Start Date End Date Kyle Soares MD [address] [place] [address] PCP - General Pediatrics 11/25/24
--- OUTSIDE RECORDS SUMMARY | 2025-03-10 14:35 | XMS_ITS | Clinical Summary ---
Author Organization [facility] Address [address] [place] [address] Care Team Providers Care Insurance Claims Specialist Name Role Phone Kyle Soares MD Primary Care Provider [phone] Social History Tobacco Use Types Packs/Day Years [...] this topic Insurance AARP MEDICARE Care Teams Insurance Claims Specialist Relationship Specialty Start Date End Date Kyle Soares MD [address] [place] [address] PCP - General FAMILY PRACTICE 08/16/24
--- OUTSIDE RECORDS SUMMARY | 2025-03-10 15:03 | XMS_ITS | Clinical Summary ---
Author Organization [facility] Address [address] [place] [address] Phone Care Team Providers Care Research Mechanic Name Role Phone Kyle Soares MD Primary Care Provider [phone]- [phone] Allergies Active Allergy Reactions Criticality Noted Date [...] (FLONASE) 50 MCG/ACT SuspensionIndic ations:Allergic Rhinitis 1 Duarte by Nasal route daily. Use in each [...] naloxone HCl (Narcan) 4 MG/0.1ML Liquid 1 Duarte by Nasal route as needed for Opioid [...] CDT - 12/16/2024 12:40 PM CDT [facility] [address] [place] [address] Krystyna Carmen MD PhD CATARACT EXTRACTION WITH INTRAOCULAR LENS PLACEMENT, LEFT EYE 12/16/2024 12:09 PM CDT Anesthesia [facility] [address] [place] [address] Kel De Jesus APRN, RUBBER ATTACHER 12/16/2024 10:52 AM CDT - 12/16/2024 12:31 PM CDT Hospital [facility] Preop[facility]Pacu [facility] [address] [place] [address] Krystyna Carmen MD PhD Discharge Disposition: Discharged [...] on file Medical Devices Implanted Type Area Sorter Lumber Straightener Device Identifier Shelf Expiration Date Model / Serial / Lot Right Lens Implanted:Qty: 1 on 11/25/2024 by Krystyna Carmen MD PhD at [facility] Right: Eye [employer]ED[employer]IC 09/25/2027 DCB00 / DCB00 / [id number] Tecnis 1-Piece Iol With Siftit Simplicity Delivery System Implanted:Qty: 1 on 12/16/2024 by Krystyna Carmen MD PhD at [facility] Left: Eye [employer]EDRIC 09/30/2027 DCB0 [id number] / [id number] / [id number] Procedures Procedure Name Priority Date/Time Associated Diagnosis Comments EXTCAP RMVL INSERT INTRAOC PROSTH W/ECP 12/16/2024 12:01 PM CDT VISUALLY SIGNIFICANT CATARACT, LEFT EYE Special Needs Resides at [facility], facility will provide transportation, patient signs own consents. Georgette (HCPOA) will be here. HCPOA & POLST/DNR in media. Hx of low back pain (limited mobility) Htn, bladder & prostate cancer. 5ft 9in 167lb EXTCAP INSERT INTROC PROSTH W/ECP 12/16/2024 12:01 PM CDT VISUALLY SIGNIFICANT CATARACT, LEFT EYE Special Needs Resides at [facility], facility will provide transportation, patient signs own consents. Georgette (HCPOA) will be here. HCPOA & POLST/DNR in media. Hx of low back pain (limited mobility) Htn, bladder & prostate cancer. 5ft 9in 167lb WA XCAPSL CTRC RMVL INSJ IO LENS PROSTH W/O ECP 12/16/2024 12:01 PM CDT VISUALLY SIGNIFICANT CATARACT, LEFT EYE Special Needs Resides at [facility], facility will provide transportation, patient signs own consents. Georgette (HCPOA) will be here. HCPOA & POLST/DNR in media. Hx of low back pain (limited mobility) Htn, bladder & prostate cancer. 5ft 9in 167lb REMV CATARACT INTRACAP,INSERT LENS 12/16/2024 12:01 PM CDT VISUALLY SIGNIFICANT CATARACT, LEFT EYE Special Needs Resides at [facility], facility will provide transportation, patient signs own consents. Georgette (HCPOA) will be here. HCPOA & POLST/DNR in media. Hx of low back pain (limited mobility) Htn, bladder & prostate cancer. 5ft 9in 167lb WA XCAPSL CTRC RMVL INSJ IO LENS PROSTH CPLX WO ECP 12/16/2024 12:01 PM CDT VISUALLY SIGNIFICANT CATARACT, LEFT EYE Special Needs Resides at [facility], facility will provide transportation, patient signs own consents. Georgette (HCPOA) will be here. HCPOA & POLST/DNR in media. Hx of low back pain (limited mobility) Htn, bladder & prostate cancer. 5ft 9in 167lb from Last 3 Months Insurance MEDICARE Advance Directives Documents on File Type Date Recorded Patient Service Attendant Cafeteria Expl anation Power of Tree Fruit And Nut Crops Farmer for Health Care 12/06/2024 3:46 PM POA 01/02/2024 POLST/[place] DNR 11/15/2024 2:34 PM POLST FORM Care Teams Research Mechanic Relationship Specialty Start Date End Date Kyle Soares MD [address] [place] [address] PCP - General Pediatrics 11/25/24
--- OUTSIDE RECORDS SUMMARY | 2025-03-10 15:03 | XMS_ITS | Clinical Summary ---
Author Organization [facility] Address [address] [place] [address] Care Team Providers Care Geophysical Manager Name Role Phone Kyle Soares MD Primary Care Provider [phone] Social History Tobacco Use Types Packs/Day Years [...] this topic Insurance AARP MEDICARE Care Teams Geophysical Manager Relationship Specialty Start Date End Date Kyle Soares MD [address] [place] [address] PCP - General FAMILY PRACTICE 08/16/24
[2025-03-10] MEDS: MORPHINE SULFATE (*CRX) 4 MG/ML INJ IV PUSH ×2 (16:47→20:17)
--- NOTE | 2025-03-10 19:05 | PC.NURSE ---
Report received, pt resting and still c/o nausea. VSS, awaiting EMS to arrive for transfer to [place].
[2025-03-10] MEDS: METOCLOPRAMIDE HCL INJ 10 MG/2 ML VIAL IV PUSH (19:14)
--- NOTE | 2025-03-10 19:30 | PC.NURSE ---
Changed pts soiled linens and gown and placed in diaper. Continuing to monitor until EMS arrives for transfer.
--- NOTE | 2025-03-10 19:49 | PC.NURSE ---
Spoke to haris Sy supsandra at [facility] and updated them on pt delay d/t weather and EMS transfer times.
--- NOTE | 2025-03-10 21:00 | PC.NURSE ---
Pt resting, VSS, still awaiting EMS for transfer to [place].
--- NOTE | 2025-03-10 21:30 | PC.NURSE ---
[facility] unavailable to transfer for unknown time. Call placed to [facility] and paged for pt transfer.
--- NOTE | 2025-03-10 21:38 | PC.NURSE ---
Call placed to [facility] and updated Rn and staff on pt ETA before arrival. Updated VS and info on pt. Pt currently sleeping, VSS. Awaiting [facility] for transfer.
== END 2025-03-10 22:43 | disposition short-term general hospital (02) ==
PROVIDERS: Emergency Provider Emergency Medicine; PCP Family Medicine
DX: K92.2 Gastrointestinal hemorrhage, unspecified (principal); I48.91 Unspecified atrial fibrillation; I10 Essential (primary) hypertension; E78.5 Hyperlipidemia, unspecified; Z79.01 Long term (current) use of anticoagulants; Z86.73 Personal history of transient ischemic attack (TIA), and cerebral infarction without residual deficits; Z87.891 Personal history of nicotine dependence
CPT/HCPCS: 36415; 80053; 82272; 83690; 83735; 85025; 85610; 85730; 96361; 96374; 96375; 96376; 99285; J1200; J2270; J2405; J2470; J2765; J7030

== ENCOUNTER 2025-03-11 00:25 | Inpatient (IN) | payer MEDICARE, SELFPAY ==
--- NOTE | 2025-03-10 23:51 | PM.IMHP2 ---
H&P: HPI History of Present Illness Date/Time: 03/10/25 23:51 Chief Complaint: Vomiting blood Narrative: This is an 80-year-old male patient who resides at [facility]. The patient was brought to [facility] via ambulance. The staff reported that the patient was vomiting up coffee-ground material up to 5 times today. He denied any fever ,chills, or diarrhea. He denied any history of GI bleed. The patient stated that he is on apixaban for AFib. His H&H was noted to be 11.4 and 35.6. His previous H&H was 10.7 and 32.5 on 02/27/2025. His anion gap is 13. His fecal for occult blood was positive. The patient was given IV Protonix, Zofran, and IV fluids in the emergency room at [facility]. He is a poor historian No imaging was performed at [facility]. The patient is being admitted to observation status on the date of service of 03/10/2025. Review of Systems Constitutional: Constitutional: Reports as per HPI and Reports no additional constitutional complaints Eyes: Eyes: Reports as per HPI and Reports no additional eye complaints ENT: Reports system reviewed and no additional complaints, except as documented and Reports Normal hearing present Cardiovascular: Cardiovascular: Reports no additional cardiovascular complaints Respiratory: Respiratory: Reports as per HPI and Reports no additional respiratory complaints Gastrointestinal: Gastrointestinal: Reports as per HPI and Reports no additional gastrointestinal complaints Musculoskeletal: Musculoskeletal: Reports no additional musculoskeletal complaints Integumentary/Breasts: Skin/Breast: Reports system reviewed and no additional complaints, except as docu Neurologic: Reports system reviewed and no additional complaints, except as documented and Reports Normal hearing present Psychiatric: Psychiatric: Reports no additional psychiatric complaints and Reports as per HPI Hematologic/Lymphatic: Hematologic/Lymphatic: Reports no additional hematologic/lymphatic complaints Allergic/Immunologic: Allergic/Immunologic: Reports no additional allergic/immunologic complaints FORMERLY [facility], [facility] Past Medical History Medical History (Updated 03/12/25 @ 06:20 by Puja Guillory APRN) Bladder cancer CVA (cerebral vascular accident) 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 Depression Cataracts, bilateral Glaucoma Hemorrhoids GERD (gastroesophageal reflux disease) BPH (benign prostatic hyperplasia) Peripheral vascular disease Atrial fibrillation Hyperlipidemia Hypertension Chronic back pain Surgical History Surgical History (Updated 03/11/25 @ 00:44 by Leonila Lovell APRN) H/O cataract extraction H/O colonoscopy History of bladder surgery History of bladder cancer 2014 H/O prostatectomy Family History Family History Mother Breast cancer Social History Social History (Updated 03/11/25 @ 00:46 by Leonila Lovell APRN) Social History: The patient resides at [facility]. He is single and has no children. He has a Georgette listed as his contact. He is retired from the [employer]. Code status: DNR Smoking packs per day: 2 Smoking cigarettes per day: 40.0 Years smoked: 7 Smoking pack-years: 14.00 Smoking status: Former smoker Tobacco type: cigarettes, pipe and cigars Second hand tobacco smoke exposure: No Smoking end date: 05/20/73 Alcohol intake: never Substance use: never Substance use type: does not use Lack of Transportation: No Lack of Food: Never True Current Housing: I Have Housing Concerned About Future Housing: No Difficulty Paying Gas/Electric Bills: No Difficulty Paying for Meds: No Currently Unemployed: No Education: Bachelor's Degree Difficulty w/ Childcare or Family Care: No Spiritual care concerns: No Meds Home Medications and Allergies Home Medications ?Medication ?Instructions ?Recorded ?Confirmed ?Type acetaminophen 325 mg tablet 650 mg (2 x 325 mg) PO Q4H PRN 05/22/24 03/11/25 Rx Mild Pain (1-3) Or Fever #10 tabs amlodipine 5 mg tablet (Norvasc) 5 mg PO DAILY #10 tabs 05/22/24 03/11/25 Rx oxycodone-acetaminophen 5 mg-325 1 tablet PO Q4H PRN Pain Rated 4-6 05/22/24 03/11/25 Rx mg tablet #20 tabs linaclotide 72 mcg capsule 72 mcg PO DAILY #20 caps 02/28/25 03/11/25 Rx (Linzess) ondansetron 4 mg disintegrating 4 mg PO Q6H PRN nausea and 02/28/25 03/11/25 Rx tablet vomiting #14 tabs alprazolam 0.5 mg tablet 0.5 mg PO DAILY 03/11/25 03/11/25 History aluminum-mag hydroxide-simethicone 15 ml PO Q6H PRN indigestion 03/11/25 03/11/25 History 400 mg-400 mg-40 mg/5 mL oral susp (Almacone-2) artifi.tears(hypromellose)(PF) 1.7 1 drp EACH EYE QID PRN dry eye(s) 03/11/25 03/11/25 History % eye drops with applicator bisacodyl 10 mg rectal suppository 10 mg RECTAL DAILY PRN constipation 03/11/25 03/11/25 History bisacodyl 5 mg tablet 10 mg PO DAILY PRN constipation 03/11/25 03/11/25 History carbidopa 25 mg-levodopa 100 mg 1 tablet PO TID 03/11/25 03/11/25 History tablet escitalopram oxalate 20 mg tablet 20 mg PO DAILY 03/11/25 03/11/25 History fluticasone propionate 50 1 spray intranasal DAILY 03/11/25 03/11/25 History mcg/actuation nasal spray,suspension furosemide 40 mg tablet 40 mg PO DAILY 03/11/25 03/11/25 History glycerin (adult) 1 supp RECTAL Q12H PRN constipation 03/11/25 03/11/25 History lidocaine 5 % topical cream 1 applic topical BID PRN pain 03/11/25 03/11/25 History lidocaine 5 % topical patch 1 patch transdermal Q24H 03/11/25 03/11/25 History (Lidoderm) morphine 30 mg tablet,extended 30 mg PO Q12H 03/11/25 03/11/25 History release naloxegol 25 mg tablet (Movantik) 25 mg PO DAILY 03/11/25 03/11/25 History naloxone 4 mg/actuation nasal 4 mg intranasal Q3M PRN opioid 03/11/25 03/11/25 History spray (Narcan) overdose olopatadine 1 drp RIGHT EYE DAILY 03/11/25 03/11/25 History phenylephrine 0.25 %-mineral oil 1 applic RECTAL QID PRN hemorrhoids 03/11/25 03/11/25 History 14 %-petrolatm 74.9 % rectal ointment (Preparation H) polyethylene glycol 3350 17 17 g PO DAILY 03/11/25 03/11/25 History gram/dose oral powder (Miralax) potassium chloride 20 mEq 40 meq PO DAILY 03/11/25 03/11/25 History tablet,extended release(part/cryst) sennosides 8.6 mg tablet (Laxative 8.6 mg PO BID 03/11/25 03/11/25 History (sennosides)) Allergies Allergy/AdvReac Type Severity Reaction Status Date / Time No Known Allergies Allergy Verified 03/11/25 01:16 Exam Const: General: cooperative, healthy appearing, comfortable, no acute distress, well developed, awake, Physically active, average body habitus and well nourished Nutritional Appearance: average body habitus Orientation/consciousness: oriented to person, oriented to place, oriented to time and patient oriented x3 Limitations: no limitations HENMT: Head: normal to inspection, No palpable skull fracture present, normocephalic, atraumatic and abrasion Eyes: General: appearance normal, both eyes and all related structures Periorbital: periorbital findings normal Eyelids: eyelids normal Chest: Chest palpation & inspection: normal inspection of the chest Resp: Effort & Inspection: normal respiratory effort Auscultation: clear to auscultation bilaterally Cardio: Palpation: normal PMI Rate: regular rate Rhythm: abnormal rhythm irregularly irregular GI: GI Palp: Yes Soft to palpation and Yes Tenderness to palpation present (GI) Auscultation: normal bowel sounds : General: Yes no CVA tenderness Skin: Other: See pictures of decubitus ulcer on the sacrum Neuro: General: oriented to person, oriented to place, oriented to time and patient oriented x3 Extrem: General: normal to inspection Right upper extremity: normal to inspection and shoulder/upper arm Left upper extremity: normal to inspection and shoulder/upper arm Right lower extremity: edema Details: 2+ Left lower extremity: edema Details: 2+ Psych: Appearance: grossly normal Mental Status: mental status grossly normal Speech and movement: Normal speech and movement present Affect: normal affect Attitude: cooperative Quality VTE Prophylaxis VTE prophylaxis: mechanical ordered Assessment and Plan Assessment and plan (1) Hematemesis: Code(s): K92.0 - Hematemesis Status: Acute Assessment and Plan: -the patient was noted to have 5 episodes hematemesis at the [facility]. -CT of the abdomen has been ordered as the patient has diffuse tenderness all over his abdomen. -nuclear med bleeding scan has been ordered -GI has been consulted. -H&H every 6 hours. -continue to monitor vital signs as per nursing protocol. -monitor for signs and symptoms of hypovolemia. -his H&H is 10.7 and 32.8 with a previous H&H of 11.4 and 35.6 earlier today. -IV Protonix and IV fluids. -the patient stated that he has been on Eliquis. (2) Atrial fibrillation: Code(s): I48.91 - Unspecified atrial fibrillation Status: Acute Assessment and Plan: -patient continues to have an irregular heartbeat. -his Eliquis is on hold at this time. -tele monitor as per nursing protocol. (3) Hypertension: Code(s): I10 - Essential (primary) hypertension Status: Acute Assessment and Plan: -blood pressure 110/70. -the patient is NPO at this time. -p.r.n. hydralazine if patient's blood pressure becomes elevated. -amlodipine is on hold at this time. (4) Hyperlipidemia: Code(s): E78.5 - Hyperlipidemia, unspecified Status: Acute Assessment and Plan: -the patient tells me he is no longer taking pravastatin. Prior Studies I have reviewed the following patient records and this information was taken into consideration when formulating the assessment and plan.: previous labs, previous ER visits and previous hospitalizations Time Spent with Patient Time with patient: 45 - 74 minutes
--- OUTSIDE RECORDS SUMMARY | 2025-03-10 23:51 | XMS_ITS | Clinical Summary ---
Author Organization [facility] Address [address] [place] [address] Phone Care Team Providers Care Professor Of Radiology Name Role Phone Kyle Soares MD Primary Care Provider [phone]- [phone] Allergies Active Allergy Reactions Criticality Noted Date [...] (FLONASE) 50 MCG/ACT SuspensionIndic ations:Allergic Rhinitis 1 Browder by Nasal route daily. Use in each [...] naloxone HCl (Narcan) 4 MG/0.1ML Liquid 1 Browder by Nasal route as needed for Opioid [...] CDT - 12/16/2024 12:40 PM CDT [facility] [address] [place] [address] Krystyna Carmen MD PhD CATARACT EXTRACTION WITH INTRAOCULAR LENS PLACEMENT, LEFT EYE 12/16/2024 12:09 PM CDT [facility]est[facility] [address] [place] [address] Kel De Jesus APRN, WELL REACTIVATOR OPERATOR 12/16/2024 10:52 AM CDT - 12/16/2024 12:31 PM CDT [facility] [address] [place] [address] Krystyna Carmen MD PhD Discharge Disposition: Discharged [...] on file Medical Devices Implanted Type Area Application Counselor Device Identifier Shelf Expiration Date Model / Serial / Lot Right Lens Implanted:Qty: 1 on 11/25/2024 by Krystyna Carmen MD PhD at [facility] Right: Eye [employer] CEDRIC 09/25/2027 DCB00 / DCB00 / [id number] Tecnis 1-Piece Iol With Clikthrough Simplicity Delivery System Implanted:Qty: 1 on 12/16/2024 by Krystyna Carmen MD PhD at [facility] Left: Eye C[employer] CEDRIC 09/30/2027 DCB0 [id number] / [id number] / [id number] Procedures Procedure Name Priority Date/Time Associated Diagnosis Comments EXTCAP RMVL INSERT INTRAOC PROSTH W/ECP 12/16/2024 12:01 PM CDT VISUALLY SIGNIFICANT CATARACT, LEFT EYE Special Needs Resides at [facility], facility will provide transportation, patient signs own consents. Georgette (HCPOA) will be here. HCPOA & POLST/DNR in media. Hx of low back pain (limited mobility) Htn, bladder & prostate cancer. 5ft 9in 167lb EXTCAP INSERT INTROC PROSTH W/ECP 12/16/2024 12:01 PM CDT VISUALLY SIGNIFICANT CATARACT, LEFT EYE Special Needs Resides at [facility], facility will provide transportation, patient signs own consents. Georgette (HCPOA) will be here. HCPOA & POLST/DNR in media. Hx of low back pain (limited mobility) Htn, bladder & prostate cancer. 5ft 9in 167lb DC XCAPSL CTRC RMVL INSJ IO LENS PROSTH W/O ECP 12/16/2024 12:01 PM CDT VISUALLY SIGNIFICANT CATARACT, LEFT EYE Special Needs Resides at [facility], facility will provide transportation, patient signs own consents. Georgette (HCPOA) will be here. HCPOA & POLST/DNR in media. Hx of low back pain (limited mobility) Htn, bladder & prostate cancer. 5ft 9in 167lb REMV CATARACT INTRACAP,INSERT LENS 12/16/2024 12:01 PM CDT VISUALLY SIGNIFICANT CATARACT, LEFT EYE Special Needs Resides at [facility], facility will provide transportation, patient signs own consents. Georgette (HCPOA) will be here. HCPOA & POLST/DNR in media. Hx of low back pain (limited mobility) Htn, bladder & prostate cancer. 5ft 9in 167lb DC XCAPSL CTRC RMVL INSJ IO LENS PROSTH CPLX WO ECP 12/16/2024 12:01 PM CDT VISUALLY SIGNIFICANT CATARACT, LEFT EYE Special Needs Resides at [facility], facility will provide transportation, patient signs own consents. Georgette (HCPOA) will be here. HCPOA & POLST/DNR in media. Hx of low back pain (limited mobility) Htn, bladder & prostate cancer. 5ft 9in 167lb from Last 3 Months Insurance MEDICARE Advance Directives Documents on File Type Date Recorded Patient Ball Point Splitter Expl anation Power of Cast Iron Dipper for Health Care 12/06/2024 3:46 PM POA 01/02/2024 POLST/POST/[place] DNR 11/15/2024 2:34 PM POLST FORM Care Teams Professor Of Radiology Relationship Specialty Start Date End Date Kyle Soares MD [address] [place] [address] PCP - General Pediatrics 11/25/24
[2025-03-10 23:58] VITALS: BMI 25.4
--- NOTE | 2025-03-10 23:59 | ADMGEN ---
This patient, Emir Sanchez, was admitted to Medical Room 340-01. Patient/family oriented to hospital policies and general routines including ID bracelet, bed and alarms, visiting hours, pain management, procedures, bathroom and other care routines, personal items, smoking policy, room service/diet, and visiting hours. Information on how to activate the Rapid Response Team has been discussed. Patient/Family are encouraged to report perceived risks to care and to ask questions if they do not understand what they are told or what they should do.
[2025-03-11] VITALS (10 sets, daily range): BP systolic 106–117; BP diastolic 61–72; PULSE 65–90; RESP 14–24; TEMP 36.3–36.9; O2SAT 94–97; BMI 25.4
--- NOTE | ~2025-03-11 | NM_ITS ---
EXAMINATION: NM GI bleeding DATE: 03/11/2025 11:43 INDICATION: GI bleed with vomiting blood TECHNIQUE: 25 mCi Tc 99m in vitro UltraTag labeled red cells administered intravenously. Scintigraphic images of the abdomen were obtained through one hour. FINDINGS: No pattern of abnormal activity is seen in the abdomen or pelvis to suggest gastrointestinal hemorrhage. IMPRESSION: 1. No scintigraphic evidence for active gastrointestinal bleeding. Reviewed, dictated and finalized at location A. UNTS RECEIVABLE REPRESENTATIVE
--- NOTE | ~2025-03-11 | CT_ITS ---
EXAMINATION: CT abdomen pelvis w con DATE: 03/11/2025 09:51 INDICATION: Gastrointestinal hemorrhage. TECHNIQUE: Computed tomography (CT) of the abdomen and pelvis was performed with 100 mL Omnipaque 350 intravenous contrast. Automated exposure control and iterative reconstruction technique were employed. The dose-length product was 372.83 mGy-cm. COMPARISON: CT abdomen and pelvis 02/27/25, 05/20/24 FINDINGS: The visualized portions of the lung bases demonstrate mild atelectasis. Calcified left hilar lymph nodes are consistent with old granulomatous disease. There are acute pulmonary emboli in right upper lobe and right lower lobe. No pleural effusion. There is left atrial enlargement of the heart. There are coronary artery calcifications. No pericardial effusion. There are cysts in the liver measuring up to 2.6 cm. The gallbladder is normal. The common duct is dilated to 15 mm, worsened from 10 mm on 05/20/24. The spleen, pancreas, adrenal glands, and kidneys are normal. The sigmoid colon is di stended, consistent with adynamic ileus. The appendix is normal. There is wall thickening of the stomach. There are no pathologically enlarged lymph nodes. There is no free intraperitoneal fluid. There is severe lumbar spondylosis. There is mild thoracic spondylosis. IMPRESSION: 1. Acute pulmonary emboli in right upper lobe and right lower lobe. I called this result to Puja Guillory. 2. Wall thickening of the stomach, consistent with gastritis. 3. Distention of the sigmoid colon, consistent with adynamic ileus. 4. Extrahepatic biliary duct dilatation. Reviewed, dictated and finalized at location E. GRAPH SERVICE RATER IMPRESSION: 1. Acute pulmonary emboli in right upper lobe and right lower lobe. I called th is result to Puja Guillory. 2. Wall thickening of the stomach, consistent with gastritis. 3. Distention of the sigmoid colon, consistent with adynamic ileus. 4. Extrahepatic biliary duct dilatation.
--- NOTE | ~2025-03-11 | US_ITS ---
EXAMINATION: US venous doppler [facility] DATE: 03/11/2025 16:29 INDICATION: Pulmonary embolism. TECHNIQUE: Grayscale ultrasound images without and with compression and Doppler ultrasound images of the bilateral lower extremity veins were obtained. COMPARISON: None. FINDINGS: The visualized portions of right common femoral vein, profunda (deep) femoral vein, femoral vein, popliteal vein, posterior tibial veins, peroneal veins, gastrocnemius vein and greater saphenous vein outflow are patent. Noncompressible nonocclusive thrombus at the left popliteal vein. The visualized portions of left common femoral vein, profunda femoral vein, femoral vein, posterior tibial veins, peroneal veins, gastrocnemius vein and greater saphenous vein outflow are patent. IMPRESSION: 1. Nonocclusive deep venous thrombosis in the left popliteal vein. 2. No deep venous thrombosis in the right lower limb. Findings were discussed with Jessica Terrell, the nurse caring for the patient, at 4:45 PM. Reviewed, dictated and finalized at location A. ORK MANAGER IMPRESSION: 1. Nonocclusive deep venous thrombosis in the left popliteal vein. 2. No deep venous thrombosis in the right lower limb. Findings were discussed w karlene Terrell, the nurse caring for the patient, at 4:45 PM.
[2025-03-11 00:49] LABS: Hematocrit 32.8 % (42.0-52.0); Hemoglobin 10.7 g/dL (14.0-18.0)
[2025-03-11] MEDS: LACTATED RINGERS 1,000 ML 75 ML IV CONT ×2 (01:54→21:29)
[2025-03-11 06:50] LABS: Hematocrit 31.6 % (42.0-52.0); Hemoglobin 10.1 g/dL (14.0-18.0)
[2025-03-11 06:58] LABS: Anion Gap 4 mmol/L (4-12); Blood Urea Nitrogen 19 mg/dL (9-20); Calcium 8.1 mg/dL (8.4-10.2); Carbon Dioxide 30 mmol/L (22-30); Chloride 102 mmol/L (98-107); Estimated CRCL calculation 45 ml/min; Estimated Glomerular Filt Rate > 60; Glucose 106 mg/dL (65-110); Potassium 3.2 mmol/L (3.4-5.0); Sodium 136 mmol/L (137-145)
--- NOTE | 2025-03-11 08:15 | PM.IMPN2 ---
Assessment and Plan Assessment and Plan (1) Hematemesis: Code(s): K92.0 - Hematemesis Status: Acute Assessment and Plan: -the patient was noted to have 5 episodes hematemesis at the alf. -CT of the abdomen ---- shows acute pulmonary embolism, gastritis -nuclear med bleeding scan---no acute findings -GI has been consulted. -H&H every 6 hours. -continue to monitor vital signs as per nursing protocol. -monitor for signs and symptoms of hypovolemia. -his H&H is 10.7 and 32.8 with a previous H&H of 11.4 and 35.6 earlier today. -IV Protonix and IV fluids. -the patient has not been on Eliquis since his admission to the alf in August 2024. This was verified by review of his medication list sent with him and [facility] who fills his medications. -H&H is down trending -Plan for EGD tomorrow (2) Acute pulmonary embolism: Code(s): I26.99 - Other pulmonary embolism without acute cor pulmonale Status: Acute Assessment and Plan: incidental finding on CT abdomen and pelvis acute PE in the RUL and RLL patient is on room air, denies dyspnea, HR is stable patient is here for a GI bleed, H&H is down trending hold on anticoagulation at this time, but will need to be treated after GI bleed is stabilized venous dopplers BLE ordered to rule out DVT patient was not on anticoagulation prior to admission, patient reported he was but he is a poor historian, I verified with [facility] and they have never filled Eliquis since patient was admitted to the alf in 08/2024 (3) Atrial fibrillation: Code(s): I48.91 - Unspecified atrial fibrillation Status: Acute Assessment and Plan: -patient continues to have an irregular heartbeat. -patient was not on anticoagulation prior to admission -tele monitor as per nursing protocol. (4) Hypertension: Code(s): I10 - Essential (primary) hypertension Status: Acute Assessment and Plan: -blood pressure stable -the patient is NPO at this time. -p.r.n. hydralazine if patient's blood pressure becomes elevated. -amlodipine is on hold at this time. (5) Hyperlipidemia: Code(s): E78.5 - Hyperlipidemia, unspecified Status: Acute Assessment and Plan: -continue statin Subjective Date/time seen: 03/11/25 08:15 Interval history: Patient seen for a follow up visit. patient lying in bed, no acute distress. GI consulted. Patient denies nausea or vomiting since arrival to the ER. H&H slowly decreasing but stable. CT scan of the abdomen showed acute pulmonary embolism in the RUL and RLL. Patiennt is on room air, denies dyspnea and HR is stable. CT abdomen and pelvis also showed gastritis. GI consulted. Plan for EGD tomorrow. Will hold on anticoagulation at this time due to down trending hemoglobin in the setting of suspected upper GI bleeding. Order venous dopplers of BLE to rule out DVT. Review of Systems Review of Systems: All systems reviewed & are unremarkable except as noted in HPI and below Exam Const: General: comfortable and no acute distress HENMT: Face/Nose/Sinus: Normal nares present Mouth: Yes moist mucous membranes Eyes: General: appearance normal, both eyes and all related structures Sclera: sclerae normal Neck: Neck: supple Resp: Effort & Inspection: normal respiratory effort Auscultation: clear to auscultation bilaterally Cardio: Rate: regular rate Rhythm: regular rhythm GI: GI Palp: Yes Soft to palpation Auscultation: normal bowel sounds Skin: General skin exam: normal color and no rashes or lesions noted Neuro: Speech: normal speech Motor exam (neuro): 5/5 motor strength present throughout Sensory Exam: normal sensation Other: oriented x 3 but forgetful Extrem: Other: LLE 2-3+ edema, RLE 1+ edema Psych: Mental Status: mental status grossly normal Affect: normal affect Objective Data Vital Signs Vital Signs: Vital Signs - 24 hr 03/11/25 00:58 03/11/25 01:22 03/11/25 04:00 Temperature 98.5 F Pulse Rate 88 80 Respiratory Rate 24 H Blood Pressure 109/65 Pulse Oximetry 94 Oxygen Delivery Room Air 03/11/25 04:00 03/11/25 07:47 Temperature 97.4 F L 97.7 F Pulse Rate 90 77 Respiratory Rate 16 14 Blood Pressure 111/72 108/66 Pulse Oximetry 96 97 Oxygen Delivery Intake/Output Intake/Output: Intake & Output 03/08/25 03/09/25 03/10/25 03/11/25 23:59 23:59 23:59 23:59 Intake Total 100 Balance 100 Meds/Results Medications: Active Medications Generic Name Dose Route Start Last Admin Trade Name Freq PRN Reason Stop Dose Admin Bisacodyl 10 mg 03/11/25 08:12 Bisacodyl 10 Mg Suppository RECTAL DAILY PRN Constipation Carbidopa/Levodopa 1 tablet 03/11/25 09:00 Carbidopa/Levodopa 25/100 Mg Tablet PO TID [facility] Escitalopram Oxalate 20 mg 03/11/25 09:00 Escitalopram Oxalate 10 Mg Tablet PO DAILY [facility] Fluticasone Propionate 1 spray 03/11/25 09:00 Fluticasone Propionate 0.05% Na Spr 16 Gm Btl (*Bkc) NASAL DAILY [facility] Hydralazine HCl 10 mg 03/11/25 00:29 Hydralazine Hcl 20 Mg/Ml Vial IV PUSH Q8H PRN Blood Pressure - High Lactated Ringer's 1,000 mls @ 75 mls/hr 03/11/25 00:25 03/11/25 01:54 Lr - Lactated Ringers Iv IV CONT 75 mls/hr .[id number] [facility] Administration Potassium Chloride 40 meq/ 520 mls @ 130 mls/hr 03/11/25 08:12 Sodium Chloride IVPB 03/11/25 12:11 ONCE ONE Lidocaine 1 patch 03/11/25 08:15 Lidocaine 5% Patch TRANSDERM Q24H [facility] Linaclotide 72 mcg 03/11/25 09:00 Linaclotide 72 Mcg Capsule PO DAILY [facility] Morphine Sulfate 30 mg 03/11/25 08:15 Morphine Sulfate (*Crx) 30 Mg Tabcr PO Q12H [facility] Non-Formulary Medication 1 drop 03/11/25 08:12 Artifi.Tears(Hypromellose)(Pf) EACH EYE QID PRN dry eye(s) Non-Formulary Medication 1 drop 03/11/25 09:00 Olopatadine RIGHT EYE 04/10/25 08:59 DAILY [facility] Non-Formulary Medication 25 mg 03/11/25 09:00 Naloxegol [Movantik] PO 04/10/25 08:59 DAILY [facility] Ondansetron HCl 4 mg 03/11/25 00:25 Ondansetron Inj 4 Mg/2 Ml Vial IV PUSH Q6H PRN Nausea And Vomiting Oxycodone/Acetaminophen 1 tablet 03/11/25 08:12 Oxycodone/Acetaminophen (*Crx) 5-325 Mg Tablet PO Q4H PRN Pain Rated 4-6 Pantoprazole Sodium 40 mg 03/11/25 09:00 Pantoprazole Sodium Iv 40 Mg Vial IV PUSH Q12HR [facility]ZA Senna 8.6 mg 03/11/25 09:00 Sennosides 8.6 Mg Tablet PO BID [facility]ZA Labs Labs: Laboratory Results - last 24 hr 03/11/25 03/11/25 03/11/25 00:41 01:01 06:35 Hgb 10.7 L 10.1 L Hct 32.8 L 31.6 L Sodium 136 L Potassium 3.2 L Chloride 102 Carbon Dioxide 30 Anion Gap 4 BUN 19 Creatinine 1.14 Estim Creat Clear Calc 45 Estimated GFR > 60 Glucose 106 Calcium 8.1 L Blood Type O Negative Antibody Screen Negative Quality VTE Prophylaxis VTE prophylaxis: mechanical ordered
[2025-03-11] MEDS: OLOPATADINE 0.1% OPHTH SOLN 5 ML BTL 1 DROP RIGHT EYE ×2 (09:09→21:25)
[2025-03-11] MEDS: SENNOSIDES 8.6 MG TABLET PO ×2 (09:11→17:25)
[2025-03-11] MEDS: MORPHINE SULFATE (*CRX) 30 MG TABCR PO ×2 (09:11→21:25)
[2025-03-11] MEDS: LINACLOTIDE 72 MCG CAPSULE PO (09:11)
[2025-03-11] MEDS: ESCITALOPRAM OXALATE 10 MG TABLET 20 MG PO (09:11)
[2025-03-11] MEDS: CARBIDOPA/LEVODOPA 25/100 MG TABLET 1 TABLET PO ×3 (09:11→17:25)
[2025-03-11] MEDS: PANTOPRAZOLE SODIUM IV 40 MG VIAL IV PUSH (09:12)
[2025-03-11] MEDS: FLUTICASONE PROPIONATE 0.05% NA SPR 16 GM BTL (*BKC) 1 SPRAY NASAL (09:12)
[2025-03-11] MEDS: LIDOCAINE 5% PATCH 1 PATCH TRANSDERM (09:13)
[2025-03-11] MEDS: POTASSIUM CHLORIDE INJ 40 MEQ in SODIUM CHLORIDE 0.9% IV 500 ML 130 MEQ IVPB (09:19)
--- NOTE | 2025-03-11 11:45 | PC.NURSE ---
PHOTO ONLY - See Nursing Notes and/ or assessments for documentation.
[2025-03-11 12:38] LABS: Hematocrit 32.1 % (42.0-52.0); Hemoglobin 10.4 g/dL (14.0-18.0)
--- NOTE | 2025-03-11 15:13 | WPDGICN ---
Assessment and Plan Assessment and plan (1) Hematemesis: Code(s): K92.0 - Hematemesis Status: Acute Assessment and Plan: The patient is currently hemodynamically stable; however, the recent history of coffee-ground emesis warrants urgent investigation. The presence of atrial fibrillation and the incidental finding of pulmonary embolus necessitate restarting anticoagulation soon. Will plan for EGD in the morning to address the source of potential upper GI bleed before initiating therapeutic anticoagulation. GI Consult Note Consult date/time: 03/11/25 15:13 Reason for consult: Coffee-ground emesis HPI: Emir Sanchez is a 80 year old male was admitted last night, brought from a [facility] after 5 episodes of coffee-ground emesis. The patient has a history of atrial fibrillation was been on Eliquis but it was stopped at the [facility]. His labs at admission yesterday showed: Hemoglobin 11.4, MCV 95.2, platelet cont 27, INR 1.1. today's labs: Hemoglobin 10.7, BUN 19, creatinine 1.14. A CT scan done today show pulmonary emboli in right upper lobe and right lower lobe, some liver cysts a common bile duct measuring 15 mm worsen from 10 mm diameter on 05/20/2024. There is significant sigmoid dilatation. The patient suffers from constipation and has not had bowel movements in 3 days but denies abdominal pain. 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 Depression Cataracts, bilateral Glaucoma Hemorrhoids GERD (gastroesophageal reflux disease) BPH (benign prostatic hyperplasia) Peripheral vascular disease Atrial fibrillation Hyperlipidemia Hypertension Chronic back pain Surgical History Surgical History (Updated 03/11/25 @ 00:44 by Leonila Lovell APRN) H/O cataract extraction H/O colonoscopy History of bladder surgery History of bladder cancer 2014 H/O prostatectomy Family History Family History Mother Breast cancer Social History Social History (Updated 03/11/25 @ 00:46 by Leonila Lovell APRN) Social History: The patient [facility] He is single and has no children. He has a Georgette listed as his contact. He is retired from the [employer]. Code status: DNR Smoking packs per day: 2 Smoking cigarettes per day: 40.0 Years smoked: 7 Smoking pack-years: 14.00 Smoking status: Former smoker Tobacco type: cigarettes, pipe and cigars Second hand tobacco smoke exposure: No Smoking end date: 05/20/73 Alcohol intake: never Substance use: never Substance use type: does not use Lack of Transportation: No Lack of Food: Never True Current Housing: I Have Housing Concerned About Future Housing: No Difficulty Paying Gas/Electric Bills: No Difficulty Paying for Meds: No Currently Unemployed: No Education: Bachelor's Degree Difficulty w/ Childcare or Family Care: No Spiritual care concerns: No Meds Home Medications and Allergies Home Medications ?Medication ?Instructions ?Recorded ?Confirmed ?Type acetaminophen 325 mg tablet 650 mg (2 x 325 mg) PO Q4H PRN 05/22/24 03/11/25 Rx Mild Pain (1-3) Or Fever #10 tabs amlodipine 5 mg tablet (Norvasc) 5 mg PO DAILY #10 tabs 05/22/24 03/11/25 Rx oxycodone-acetaminophen 5 mg-325 1 tablet PO Q4H PRN Pain Rated 4-6 05/22/24 03/11/25 Rx mg tablet #20 tabs linaclotide 72 mcg capsule 72 mcg PO DAILY #20 caps 02/28/25 03/11/25 Rx (Linzess) ondansetron 4 mg disintegrating 4 mg PO Q6H PRN nausea and 02/28/25 03/11/25 Rx tablet vomiting #14 tabs alprazolam 0.5 mg tablet 0.5 mg PO DAILY 03/11/25 03/11/25 History aluminum-mag hydroxide-simethicone 15 ml PO Q6H PRN indigestion 03/11/25 03/11/25 History 400 mg-400 mg-40 mg/5 mL oral susp (Almacone-2) artifi.tears(hypromellose)(PF) 1.7 1 drp EACH EYE QID PRN dry eye(s) 03/11/25 03/11/25 History % eye drops with applicator bisacodyl 10 mg rectal suppository 10 mg RECTAL DAILY PRN constipation 03/11/25 03/11/25 History bisacodyl 5 mg tablet 10 mg PO DAILY PRN constipation 03/11/25 03/11/25 History carbidopa 25 mg-levodopa 100 mg 1 tablet PO TID 03/11/25 03/11/25 History tablet escitalopram oxalate 20 mg tablet 20 mg PO DAILY 03/11/25 03/11/25 History fluticasone propionate 50 1 spray intranasal DAILY 03/11/25 03/11/25 History mcg/actuation nasal spray,suspension furosemide 40 mg tablet 40 mg PO DAILY 03/11/25 03/11/25 History glycerin (adult) 1 supp RECTAL Q12H PRN constipation 03/11/25 03/11/25 History lidocaine 5 % topical cream 1 applic topical BID PRN pain 03/11/25 03/11/25 History lidocaine 5 % topical patch 1 patch transdermal Q24H 03/11/25 03/11/25 History (Lidoderm) morphine 30 mg tablet,extended 30 mg PO Q12H 03/11/25 03/11/25 History release naloxegol 25 mg tablet (Movantik) 25 mg PO DAILY 03/11/25 03/11/25 History naloxone 4 mg/actuation nasal 4 mg intranasal Q3M PRN opioid 03/11/25 03/11/25 History spray (Narcan) overdose olopatadine 1 drp RIGHT EYE DAILY 03/11/25 03/11/25 History phenylephrine 0.25 %-mineral oil 1 applic RECTAL QID PRN hemorrhoids 03/11/25 03/11/25 History 14 %-petrolatm 74.9 % rectal ointment (Preparation H) polyethylene glycol 3350 17 17 g PO DAILY 03/11/25 03/11/25 History gram/dose oral powder (Miralax) potassium chloride 20 mEq 40 meq PO DAILY 03/11/25 03/11/25 History tablet,extended release(part/cryst) sennosides 8.6 mg tablet (Laxative 8.6 mg PO BID 03/11/25 03/11/25 History (sennosides)) Allergies Allergy/AdvReac Type Severity Reaction Status Date / Time No Known Allergies Allergy Verified 03/11/25 01:16 Vital Signs Vital Signs - 24 hr 03/11/25 00:58 03/11/25 01:22 03/11/25 04:00 Temperature 98.5 F Pulse Rate 88 80 Respiratory Rate 24 H Blood Pressure 109/65 Pulse Oximetry 94 Oxygen Delivery Room Air 03/11/25 04:00 03/11/25 07:47 03/11/25 08:05 Temperature 97.4 F L 97.7 F Pulse Rate 90 77 77 Respiratory Rate 16 14 Blood Pressure 111/72 108/66 Pulse Oximetry 96 97 Oxygen Delivery 03/11/25 09:19 03/11/25 12:00 03/11/25 12:05 Temperature 98.5 F Pulse Rate 71 76 Respiratory Rate 14 Blood Pressure 117/72 Pulse Oximetry 94 Oxygen Delivery Room Air Exam Narrative: Alert and awake , oriented x3, cooperative. Not acutely distressed. Abdomen: Soft, nontender, mildly to moderately distended, tympanitic, no hepatosplenomegaly. Rest of the examination within normal limits Results Labs 03/11/25 12:16 03/11/25 06:35 Labs: Short CBC 03/11/25 03/11/25 03/11/25 Range/Units 00:41 06:35 12:16 Hgb 10.7 L 10.1 L 10.4 L (14.0-18.0) g/dL Hct 32.8 L 31.6 L 32.1 L (42.0-52.0) % BMP 03/11/25 06:35 Sodium 136 L Potassium 3.2 L Chloride 102 Carbon Dioxide 30 BUN 19 Creatinine 1.14 Glucose 106 Calcium 8.1 L
[2025-03-11 19:08] LABS: Hematocrit 30.0 % (42.0-52.0); Hemoglobin 9.9 g/dL (14.0-18.0)
[2025-03-11] MEDS: ARTIFICIAL TEARS OPHTH SOLN 15 ML BOTTLE 1 DROP EACH EYE (21:25)
[2025-03-11] MEDS: PANTOPRAZOLE 40 MG TABLET PO (21:25)
[2025-03-12] VITALS (14 sets, daily range): BP systolic 98–138; BP diastolic 64–89; PULSE 66–80; RESP 14–22; TEMP 36.6–37.2; O2SAT 93–98
--- NOTE | 2025-03-12 | ECHO_ITS ---
Patient Info Name: Emir Sanchez Age: 80 years : 1945 Gender: Male Ht: 69 in Wt: 171 lbs BSA: 1.95 m2 HR: 72 bpm BP: 118 / 78 mmHg Heart Rhythm: Atrial Fibrillation Technical Quality: Fair Exam Date: 03/12/2025 3:28 PM Patient Status: I Admit Date: 03/12/2025 Exam Type: CA echo dop color flow w con Complete two-dimensional, color flow and Doppler transthoracic echocardiogram is performed with contrast to opacify the left ventricle and to improve the deliniation of the left ventricle endocardial borders. Staff Referring Physician: Puja Guillory Supervisor Scenic Arts: Cameron Barreto III Attending Provider: Juwan Jennings Oca Contrast/Agitated Saline Contrast/Ag. Saline: Definity Amount: 2.00 ml Administered By: Cameron Barreto III Existing IV Access: Yes IV Access Condition: patent with no signs of infiltration Summary 1. Definity contrast administered improved wall motion interpretation. 2. Left ventricular chamber dimension is normal. 3. Left ventricular systolic function is normal, estimated at 65-70. 4. The left ventricular diastolic function is abnormal. 5. E/e' 7 is not elevated. 6. Atrial fibrillation. 7. Right ventricular chamber dimension is moderately enlarged. 8. Right ventricular systolic function is moderately reduced and with mildly abnormal TAPSE 1.7 cm. 9. Left atrial chamber dimension is moderately enlarged. 10. Right atrial chamber dimension is moderately enlarged. 11. There is moderate aortic valve sclerosis. 12. There is mild to moderate mitral valve regurgitation. 13. There is mild tricuspid valve regurgitation. 14. Moderate pulmonary hypertension, estimated pulmonary arterial systolic pressure is 52 mmHg. 15. There is trivial pericardial effusion. Left Ventricle Left ventricular chamber dimension is normal. Left ventricular systolic function is normal, estimated at 65-70. The left ventricular diastolic function is abnormal. Definity contrast administered improved wall motion interpretation. E/e' 7 is not elevated. Atrial fibrillation. Right Ventricle Right ventricular chamber dimension is moderately enlarged. Right ventricular systolic function is moderately reduced and with mildly abnormal TAPSE 1.7 cm. Left Atria Left atrial chamber dimension is moderately enlarged. Right Atria Right atrial chamber dimension is moderately enlarged. Aortic Valve The aortic valve is trileaflet. There is moderate aortic valve sclerosis. There is no aortic valve stenosis. There is no aortic valve regurgitation. Pulmonic Valve There is no pulmonic regurgitation. Mitral Valve There is no mitral valve stenosis. There is mild to moderate mitral valve regurgitation. Tricuspid Valve There is mild tricuspid valve regurgitation. Moderate pulmonary hypertension, estimated pulmonary arterial systolic pressure is 52 mmHg. Pericardium/Pleural There is trivial pericardial effusion. Inferior Vena Cava Normal inferior vena cava with >50% collapse upon inspiration consistent with normal right atrial pressure, 5 mmHg. Aorta The aortic root size at the sinus of Valsalva is normal. Left Ventricular Outflow Tract Name Value Normal LVOT 2D LVOT Diameter 2.1 cm LVOT Doppler LVOT Peak Velocity 77 cm/s LVOT Peak Gradient 2 mmHg LVOT Mean Gradient 1 mmHg LVOT VTI 16 cm LVOT VTI/AV VTI Ratio 0.7 LVOT Stroke Volume 57 ml LVOT CO 3.4 l/min LVOT CI 1.8 l/min/m2 Pulmonic Valve Name Value Normal PV Doppler PV Peak Velocity 97 cm/s PV Peak Gradient 4 mmHg PV Mean Gradient 2 mmHg Mitral Valve Name Value Normal MV Doppler MV Peak Gradient 6 mmHg MV Mean Gradient 2 mmHg MV Area (Cont Eq VTI) 2.2 cm2 MV Regurgitation Doppler MR Peak Gradient 71 mmHg MV Diastolic Function MV E Peak Velocity 110 cm/s MV Decel Time (PW) 133 ms MV Annular TDI MV E/e' (Septal) 9.5 MV E/e' (Lateral) 5.9 MV E/e' (Average) 7.7 Tricuspid Valve Name Value Normal TV Regurgitation Doppler TR Peak Velocity 342 cm/s TR Peak Gradient 47 mmHg Estimated PAP/RSVP RA Pressure 5 mmHg <=5 PA Systolic Pressure 52 mmHg <36 RV Systolic Pressure 52 mmHg <36 TV Annular TDI TV Lateral Teresa s' Velocity 11.9 cm/s >=9.5 Aortic Valve Name Value Normal AV Doppler AV Peak Velocity 125 cm/s AV Peak Gradient 6 mmHg AV Mean Gradient 3 mmHg AV VTI 24 cm AV Area (Cont Eq VTI) 2.4 cm2 >=3.0 AV Area (Cont Eq Justin) 2.2 cm2 AV DI (Justin) 0.61 AV Regurgitation 2D LVOT Area 3.5 cm2 Ventricles Name Value Normal LV Dimensions 2D/MM IVS Diastolic Thickness (2D) 1.2 cm 0.6-1.0 LVID Diastole (2D) 3.9 cm 4.2-5.8 LVIW Diastolic Thickness (2D) 1.0 cm 0.6-1.0 LVID Systole (2D) 2.5 cm 2.5-4.0 LVOT Diameter 2.1 cm LV Mass (2D Cubed) 135.26 g 88.00-224.00 LV Mass Index (2D Cubed) 69 g/m2 49-115 Relative Wall Thickness (2D) 0.51 <=0.42 LV Fractional Shortening/Ejection Fraction 2D/MM LV Fractional Shortening (2D) 35 % 25-43 LV EF (2D Teichholz) 67 % LV Diastolic Volume (4C MOD) 88 ml LV EF (4C MOD) 67 % LV Diastolic Length (4C) 7.8 cm LV Systolic Length (4C) 6.3 cm LV Stroke Volume (4C MOD) 59 ml Atria Name Value Normal LA Dimensions LA Volume (4C A-L) 82 ml LA Volume (BP A-L) 76 ml RA Dimensions RA Systolic Major Perry Length (4C) 7.0 cm 2.1-2.7 RA Area (4C) 25.8 cm2 <=18.0 Report Signatures
[2025-03-12 05:51] LABS: Hematocrit 28.5 % (42.0-52.0); Hemoglobin 9.3 g/dL (14.0-18.0); Mean Corpuscular HGB Conc 32.6 g/dl (32-36); Mean Corpuscular Hemoglobin 30.8 pg (26-34); Mean Corpuscular Volume 94.4 fl (80-100); Platelet Count Result 153 k/mm3 (150-375); Red Blood Count 3.02 M/mm3 (4.6-6.20); White Blood Count 9.0 K/mm3 (4.5-10.0)
--- NOTE | 2025-03-12 06:31 | P.CDI_ITS ---
CDI Query Clarification Request BMI: 25.4 Nutritional Diagnostic Statement: Please refer to the comprehensive nutrition assessment for further information. If you agree with diagnosis of Severe protein calorie malnutrition related to decreased appetite in the setting of acute GI bleed and chronic abdominal pain as evidenced by weight loss 7%/1 month and 14%/6 months; intakes <75% needs >1 month; severe muscle wasting (temporalis, clavicles). Please specify severity if known: * Mild * Moderate * Severe * Other/Unknown <Shea Joseph RN - Last Filed: 03/12/25 06:32> Clarified Diagnosis Clarified Diagnosis: Severe protein calorie malnutrition related to decreased appetite in the setting of acute GI bleed and chronic abdominal pain as evidenced by weight loss 7%/1 month and 14%/6 months; intakes <75% needs >1 month <Margo Chaney APRN - Last Filed: 03/12/25 08:51>
[2025-03-12 06:34] LABS: Anion Gap 4 mmol/L (4-12); Blood Urea Nitrogen 15 mg/dL (9-20); Calcium 7.9 mg/dL (8.4-10.2); Carbon Dioxide 27 mmol/L (22-30); Chloride 102 mmol/L (98-107); Estimated CRCL calculation 52 ml/min; Estimated Glomerular Filt Rate > 60; Glucose 96 mg/dL (65-110); Potassium 3.0 mmol/L (3.4-5.0); Sodium 133 mmol/L (137-145)
[2025-03-12] MEDS: ONDANSETRON INJ 4 MG/2 ML VIAL IV PUSH (06:36)
[2025-03-12] MEDS: oxyCODONE/ACETAMINOPHEN (*CRX) 5-325 MG TABLET 1 TABLET PO (06:36)
[2025-03-12] MEDS: LINACLOTIDE 72 MCG CAPSULE PO (06:36)
[2025-03-12] MEDS: OLOPATADINE 0.1% OPHTH SOLN 5 ML BTL 1 DROP RIGHT EYE ×2 (09:26→20:50)
[2025-03-12] MEDS: ESCITALOPRAM OXALATE 10 MG TABLET 20 MG PO (09:26)
[2025-03-12] MEDS: FLUTICASONE PROPIONATE 0.05% NA SPR 16 GM BTL (*BKC) 1 SPRAY NASAL (09:26)
[2025-03-12] MEDS: MORPHINE SULFATE (*CRX) 30 MG TABCR PO ×2 (09:26→20:49)
[2025-03-12] MEDS: CARBIDOPA/LEVODOPA 25/100 MG TABLET 1 TABLET PO ×3 (09:26→17:14)
[2025-03-12 09:55] LABS: Magnesium 1.5 mg/dL (1.6-2.3)
[2025-03-12] MEDS: LACTATED RINGERS 1,000 ML 75 ML IV CONT (10:29)
[2025-03-12] MEDS: POTASSIUM CHLORIDE INJ 40 MEQ in SODIUM CHLORIDE 0.9% IV 500 ML 130 MEQ IVPB (10:29)
[2025-03-12] MEDS: PANTOPRAZOLE SODIUM IV 40 MG VIAL IV PUSH (10:30)
--- NOTE | 2025-03-12 12:27 | WPDANESEPPF ---
Anes - Initial Pre Proc Eval Procedure: Operation Date: 03/12/25 13:00 Proposed Procedures p Esophagogastroduodenoscopy - Alvarez Mcgrath MD Date/Time: 03/12/25 12:27 Surgeon: Juwan guzman Oca, MD Pre Op Diagnosis: GI Bleed Patient Data Age: 80 Gender: M Height: 1.75 m Weight: 78 kg Last Vital Signs Temp 37.0 C 03/12/25 11:47 Pulse 75 03/12/25 11:47 Resp 16 03/12/25 11:47 BP 130/78 03/12/25 11:47 Pulse Ox 94 03/12/25 11:47 O2 Del Method Room Air 03/12/25 09:25 Allergies Allergy/AdvReac Type Severity Reaction Status Date / Time No Known Allergies Allergy Verified 03/11/25 01:16 Home Medications ?Medication ?Instructions ?Recorded ?Confirmed ?Type acetaminophen 325 mg tablet 650 mg (2 x 325 mg) PO Q4H PRN 05/22/24 03/11/25 Rx Mild Pain (1-3) Or Fever #10 tabs amlodipine 5 mg tablet (Norvasc) 5 mg PO DAILY #10 tabs 05/22/24 03/11/25 Rx oxycodone-acetaminophen 5 mg-325 1 tablet PO Q4H PRN Pain Rated 4-6 05/22/24 03/11/25 Rx mg tablet #20 tabs linaclotide 72 mcg capsule 72 mcg PO DAILY #20 caps 02/28/25 03/11/25 Rx (Linzess) ondansetron 4 mg disintegrating 4 mg PO Q6H PRN nausea and 02/28/25 03/11/25 Rx tablet vomiting #14 tabs alprazolam 0.5 mg tablet 0.5 mg PO DAILY 03/11/25 03/11/25 History aluminum-mag hydroxide-simethicone 15 ml PO Q6H PRN indigestion 03/11/25 03/11/25 History 400 mg-400 mg-40 mg/5 mL oral susp (Almacone-2) artifi.tears(hypromellose)(PF) 1.7 1 drp EACH EYE QID PRN dry eye(s) 03/11/25 03/11/25 History % eye drops with applicator bisacodyl 10 mg rectal suppository 10 mg RECTAL DAILY PRN constipation 03/11/25 03/11/25 History bisacodyl 5 mg tablet 10 mg PO DAILY PRN constipation 03/11/25 03/11/25 History carbidopa 25 mg-levodopa 100 mg 1 tablet PO TID 03/11/25 03/11/25 History tablet escitalopram oxalate 20 mg tablet 20 mg PO DAILY 03/11/25 03/11/25 History fluticasone propionate 50 1 spray intranasal DAILY 03/11/25 03/11/25 History mcg/actuation nasal spray,suspension furosemide 40 mg tablet 40 mg PO DAILY 03/11/25 03/11/25 History glycerin (adult) 1 supp RECTAL Q12H PRN constipation 03/11/25 03/11/25 History lidocaine 5 % topical cream 1 applic topical BID PRN pain 03/11/25 03/11/25 History lidocaine 5 % topical patch 1 patch transdermal Q24H 03/11/25 03/11/25 History (Lidoderm) morphine 30 mg tablet,extended 30 mg PO Q12H 03/11/25 03/11/25 History release naloxegol 25 mg tablet (Movantik) 25 mg PO DAILY 03/11/25 03/11/25 History naloxone 4 mg/actuation nasal 4 mg intranasal Q3M PRN opioid 03/11/25 03/11/25 History spray (Narcan) overdose olopatadine 1 drp RIGHT EYE DAILY 03/11/25 03/11/25 History phenylephrine 0.25 %-mineral oil 1 applic RECTAL QID PRN hemorrhoids 03/11/25 03/11/25 History 14 %-petrolatm 74.9 % rectal ointment (Preparation H) polyethylene glycol 3350 17 17 g PO DAILY 03/11/25 03/11/25 History gram/dose oral powder (Miralax) potassium chloride 20 mEq 40 meq PO DAILY 03/11/25 03/11/25 History tablet,extended release(part/cryst) sennosides 8.6 mg tablet (Laxative 8.6 mg PO BID 03/11/25 03/11/25 History (sennosides)) Laboratory Tests 03/11/25 03/11/25 03/12/25 12:16 19:02 05:22 WBC 9.0 K/mm3 (4.5-10.0) RBC 3.02 L M/mm3 (4.6-6.20) Hgb 10.4 L g/dL 9.9 L g/dL 9.3 L g/dL (14.0-18.0) (14.0-18.0) (14.0-18.0) Hct 32.1 L % 30.0 L % 28.5 L % (42.0-52.0) (42.0-52.0) (42.0-52.0) MCV 94.4 fl (80-100) MCH 30.8 pg (26-34) MCHC 32.6 g/dl (32-36) RDW 13.1 % (11.5-14.5) Plt Count 153 k/mm3 (150-375) MPV 11.1 H fl (7.4-10.4) Sodium 133 L mmol/L (137-145) Potassium 3.0 L mmol/L (3.4-5.0) Chloride 102 mmol/L (98-107) Carbon Dioxide 27 mmol/L (22-30) Anion Gap 4 mmol/L (4-12) BUN 15 mg/dL (9-20) Creatinine 0.98 mg/dL (0.7-1.3) Estim Creat Clear Calc 52 ml/min Estimated GFR > 60 (59 - ) Glucose 96 mg/dL (65-110) Calcium 7.9 L mg/dL (8.4-10.2) Magnesium 1.5 L mg/dL (1.6-2.3) Patient hx anesthesia problems: none Family hx anesthesia problems: none Results Review: All pre-operative results and documents have been reviewed as part of the pre-operative evaluation. 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 Depression Cataracts, bilateral Glaucoma Hemorrhoids GERD (gastroesophageal reflux disease) BPH (benign prostatic hyperplasia) Peripheral vascular disease Atrial fibrillation Hyperlipidemia Hypertension Chronic back pain Surgical History Surgical History (Updated 03/11/25 @ 00:44 by Leonila Lovell APRN) H/O cataract extraction H/O colonoscopy History of bladder surgery History of bladder cancer 2013 H/O prostatectomy Family History Family History Mother Breast cancer Social History Social History (Updated 03/11/25 @ 00:46 by Leonila Lovell APRN) Social History: The patient resides at [facility]. He is single and has no children. He has a Georgette listed as his contact. He is retired from the [employer]. Code status: DNR Smoking packs per day: 2 Smoking cigarettes per day: 40.0 Years smoked: 7 Smoking pack-years: 14.00 Smoking status: Former smoker Tobacco type: cigarettes, pipe and cigars Second hand tobacco smoke exposure: No Smoking end date: 05/20/73 Alcohol intake: never Substance use: never Substance use type: does not use Lack of Transportation: No Lack of Food: Never True Current Housing: I Have Housing Concerned About Future Housing: No Difficulty Paying Gas/Electric Bills: No Difficulty Paying for Meds: No Currently Unemployed: No Education: Bachelor's Degree Difficulty w/ Childcare or Family Care: No Spiritual care concerns: No Anes - Eval Final PreProcedure Day of Procedure 03/12/25 12:27 Patient weight: overweight Heart: regular rate and rhythm Lungs: clear to auscultation Airway: Mallampati scale class II Neurological: alert and oriented Last oral intake: >/= 8 hours ASA classification: IV Emergent: yes Anesthetic plan: proceed Anesthesia type and monitoring: general GIVS and standard monitoring Results Review: All pre-operative results and documents have been reviewed as part of the pre-operative evaluation. Informed Consent: The patient's anesthetic plan and its attendant risks and benefits were discussed with the patient/family/POA. Questions were solicited and answers provided to the satisfaction of the patient/family/POA.
[2025-03-12] MEDS: LACTATED RINGERS 1,000 ML 150 ML IV CONT (12:43)
--- NOTE | 2025-03-12 13:30 | S_PTH ---
PATIENT: Emir Sanchez LOC: [id number] U#:[id number] AGE/SX: 80/M ROOM: 340 RE03/12/[address]: Margo Chaney APRN : 1945 BED: 01 DIS: 03/13/2025 SPEC #: [id number] RECD: 03/12/25 14:04 STATUS: KARIE VASQUEZ #: [id number] MARLENE: 03/12/25 13:[address]: Alvarez Mcgrath DEPT: [facility] Surgical RECD BY: Renay Estrada ENTERED: 03/12/25 14:05 SP TYPE: Surgical OTHR DR: DANY Kimble Oca, MD Bryan C. Siegfried, MD Tissues: A - Gastric Biopsy B - Gastric Biopsy C - Gastric Biopsy Procedures: Hematoxylin and Eosin Stain Gross and Microscopic Level 4 H.Pylori
--- NOTE | 2025-03-12 13:39 | P.PNGI_ITS ---
Progress Note: A&P Assessment and Plan (1) Gastritis determined by endoscopy: Code(s): K29.70 - Gastritis, unspecified, without bleeding Status: Acute Assessment and Plan: The patient currently maintains hemodynamic stability with a stable hematocrit. Despite this, the recent endoscopic finding of a very friable and beefy red fundal mucosa places the patient at a high risk of recurrent bleeding, particula rly if anticoagulation is initiated prematurely. Therefore, the recommended plan is to continue aggressive gastric protection with pantoprazole 40 mg b.i.d. for 4 weeks and to consider a repeat EGD prior to the re-initiation of any anticoagulation therapy to ensure complete mucosal healing and minimize the risk of a significant rebleed. Subjective Date/time seen: 03/12/25 13:39 Interval history: The patient did not have further episodes of upper GI bleeding. See EGD report. Severe friable, erythematous and petechial aspect of the fundus. Objective Data Vital Signs Vital Signs: Vital Signs - 24 hr 03/11/25 16:00 03/11/25 16:04 03/11/25 19:43 Temperature 98.4 F 98.1 F Pulse Rate 65 73 67 Respiratory Rate 14 22 H Blood Pressure 106/68 114/61 Pulse Oximetry 95 97 Oxygen Delivery 03/11/25 20:00 03/11/25 20:00 03/12/25 00:00 Temperature 98.0 F Pulse Rate 71 69 Respiratory Rate 22 H Blood Pressure 109/64 Pulse Oximetry 96 Oxygen Delivery Room Air 03/12/25 00:00 03/12/25 04:00 03/12/25 04:00 Temperature 97.9 F Pulse Rate 73 73 74 Respiratory Rate 20 Blood Pressure 120/69 Pulse Oximetry 93 Oxygen Delivery 03/12/25 07:47 03/12/25 09:25 03/12/25 11:47 Temperature 99 F 98.6 F Pulse Rate 80 75 Respiratory Rate 14 16 Blood Pressure 124/80 130/78 Pulse Oximetry 95 94 Oxygen Delivery Room Air 03/12/25 12:33 03/12/25 13:27 Temperature 98.2 F Pulse Rate 76 66 Respiratory Rate 18 14 Blood Pressure 134/79 98/65 L Pulse Oximetry 95 98 Oxygen Delivery Room Air Room Air Intake/Output Intake/Output: Intake & Output 03/09/25 03/10/25 03/11/25 03/12/25 23:59 23:59 23:59 23:59 Intake Total 1920 975 Output Total 150 500 Balance 6024 593 Meds/Results Medications: Active Medications Generic Name Dose Route Start Last Admin Trade Name Freq PRN Reason Stop Dose Admin Artificial Tears 1 drop 03/11/25 08:12 03/11/25 21:25 Artificial Tears Ophth Soln 15 Ml Bottle EACH EYE 1 drop QID PRN Administration dry eye(s) Bisacodyl 10 mg 03/11/25 08:12 Bisacodyl 10 Mg Suppository RECTAL DAILY PRN Constipation Carbidopa/Levodopa 1 tablet 03/11/25 09:00 03/12/25 09:26 Carbidopa/Levodopa 25/100 Mg Tablet PO 1 tablet TID ELZA Administration Escitalopram Oxalate 20 mg 03/11/25 09:00 03/12/25 09:26 Escitalopram Oxalate 10 Mg Tablet PO 20 mg DAILY ELZA Administration Fluticasone Propionate 1 spray 03/11/25 09:00 03/12/25 09:26 Fluticasone Propionate 0.05% Na Spr 16 Gm Btl (*Bkc) NASAL 1 spray DAILY ELZA Administration Hydralazine HCl 10 mg 03/11/25 00:29 Hydralazine Hcl 20 Mg/Ml Vial IV PUSH Q8H PRN Blood Pressure - High Lactated Ringer's 1,000 mls @ 75 mls/hr 03/11/25 00:25 03/12/25 10:29 Lr - Lactated Ringers Iv IV CONT 75 mls/hr .[id number] ELZA Administration Lactated Ringer's 1,000 mls @ 150 mls/hr 03/12/25 12:30 03/12/25 13:32 Lr - Lactated Ringers Iv IV CONT 150 mls/hr .[id number] ELZA Infusion Lidocaine 1 patch 03/11/25 09:00 03/12/25 09:27 Lidocaine 5% Patch TRANSDERM Not Given Q24H ELZA Linaclotide 72 mcg 03/11/25 08:20 03/12/25 06:36 Linaclotide 72 Mcg Capsule PO 72 mcg DAILY@0630 ELZA Administration Morphine Sulfate 30 mg 03/11/25 09:00 03/12/25 09:26 Morphine Sulfate (*Crx) 30 Mg Tabcr PO 30 mg Q12H ELZA Administration Olopatadine HCl 1 drop 03/11/25 09:00 03/12/25 09:26 Olopatadine 0.1% Ophth Soln 5 Ml Btl RIGHT EYE 1 drop Q12HR ELZA Administration Ondansetron HCl 4 mg 03/11/25 00:25 03/12/25 06:36 Ondansetron Inj 4 Mg/2 Ml Vial IV PUSH 4 mg Q6H PRN Administration Nausea And Vomiting Oxycodone/Acetaminophen 1 tablet 03/11/25 08:12 03/12/25 06:36 Oxycodone/Acetaminophen (*Crx) 5-325 Mg Tablet PO 1 tablet Q4H PRN Administration Pain Rated 4-6 Pantoprazole Sodium 40 mg 03/12/25 21:00 Pantoprazole 40 Mg Tablet PO Q12HR ELZA Senna 8.6 mg 03/11/25 09:00 03/11/25 17:25 Sennosides 8.6 Mg Tablet PO 8.6 mg BID ELZA Administration Radiology Results: ITS Impressions Abdomen/Pelvis CT 03/11/25 11:39 IMPRESSION: 1. Acute pulmonary emboli in right upper lobe and right lower lobe. I called this result to Puja Guillory. 2. Wall thickening of the stomach, consistent with gastritis. 3. Distention of the sigmoid colon, consistent with adynamic ileus. 4. Extrahepatic biliary duct dilatation. GI Bleed Scan Nuclear Medicine 03/11/25 11:45 IMPRESSION: 1. No scintigraphic evidence for active gastrointestinal bleeding. Venous Doppler Study 03/11/25 16:40 IMPRESSION: 1. Nonocclusive deep venous thrombosis in the left popliteal vein. 2. No deep venous thrombosis in the right lower limb. Findings were discussed with Jessica Terrell, the nurse caring for the patient, at 4:45 PM. Labs Labs: Laboratory Results - last 24 hr 03/11/25 03/12/25 19:02 05:22 WBC 9.0 RBC 3.02 L Hgb 9.9 L 9.3 L Hct 30.0 L 28.5 L MCV 94.4 MCH 30.8 MCHC 32.6 RDW 13.1 Plt Count 153 MPV 11.1 H Sodium 133 L Potassium 3.0 L Chloride 102 Carbon Dioxide 27 Anion Gap 4 BUN 15 Creatinine 0.98 Estim Creat Clear Calc 52 Estimated GFR > 60 Glucose 96 Calcium 7.9 L Magnesium 1.5 L
[2025-03-12] MEDS: SENNOSIDES 8.6 MG TABLET PO (14:43)
--- NOTE | 2025-03-12 15:02 | P.PNIM_ITS ---
Assessment and Plan Assessment and Plan (1) Hematemesis: Code(s): K92.0 - Hematemesis Status: Acute Assessment and Plan: [facility] was [facility] EGD showed with bleeding. CT ABD no acute findings incidental finding PE * GI following recommends no anticoagulation for 4 weeks due gastritis had severe erythematous, hemorrhagic, friable and petechiae changes * Transition to pantoprazole 40 mg b.i.d. per GI * Continue to monitor H&H * Transfuse PRBCs if hgb <7.0 (2) Gastritis with bleeding: Code(s): K29.71 - Gastritis, unspecified, with bleeding Status: Acute Assessment and Plan: See Above (3) DVT (deep venous thrombosis): Code(s): I82.409 - Acute embolism and thrombosis of unspecified deep veins of unspecified lower extremity Status: Acute Assessment and Plan: Patient found to have acute pulmonary embolism venous Doppler studies were performed and patient was found to have a non occlusive deep vein thrombosis in the left popliteal vein * Currently unable to start anticoagulation due to bleeding gastritis * Consult general surgery for possible IVC filter (4) Acute pulmonary embolism: Code(s): I26.99 - Other pulmonary embolism without acute cor pulmonale Status: Acute Assessment and Plan: Patient with acute pulmonary emboli in right upper lobe and right lower lobe * Unable to start anticoagulation due to bleeding gastritis * Continue to monitor respiratory status currently on room air and denying any shortness of breath or chest pain * Will get echocardiogram just to rule out any right-sided heart strain * Patient likely not the best candidate for thrombectomy due to comorbidities and location patient currently hemodynamically stable will wait for echocardiogram results (5) Atrial fibrillation: Code(s): I48.91 - Unspecified atrial fibrillation Status: Acute Assessment and Plan: patient continues to have an irregular heartbeat. * Unable to start anticoagulation due to gastritis bleeding (6) Hypertension: Code(s): I10 - Essential (primary) hypertension Status: Acute Assessment and Plan: * Resume amlodipine * Monitor BP per unit protocol Plan Code status: DNR/DNI DVT prophylaxis: NA DVT/PE present no AC due to bleadding Stress ulcer prophylaxis: Protonix 40 BID PT/OT notes: SNF Disposition: Patient continues admission to the medical unit for further evaluation and treatment of gastritis with bleeding, PE and DVT surgeries been consulted for evaluation for possible IVC filter placement patient currently is at high risk if placed on any anticoagulation. Patient to return to [facility] facility once medically stable. Medical Record Review I have reviewed the following patient records and this information was taken int o consideration when formulating the assessment and plan.: previous labs, previous ER visits and previous hospitalizations Consultations Consultations: I have discussed the care of this pt with the consulting providers. Time Spent With Patient Time with patient: 25 - 35 minutes Subjective Date/time seen: 03/12/25 15:02 Interval history: Patient is an 80-year-old male admitted for hematemesis and found to have bleeding gastritis on EGD incidental findings of pulmonary embolism insert extremity DVT. 03/12/2025: Assumed Care Review of Systems Review of Systems: All systems reviewed & are unremarkable except as noted in HPI and below Exam Const: General: comfortable and no acute distress Other: Pleasant chronically Ill male HENMT: Mouth: Yes dry mucous membranes Eyes: General: appearance normal, both eyes and all related structures Resp: Effort & Inspection: normal respiratory effort Auscultation: clear to auscultation bilaterally Cardio: Rate: regular rate Rhythm: regular rhythm GI: GI Palp: Yes Soft to palpation Auscultation: normal bowel sounds Skin: General skin exam: normal color and no rashes or lesions noted Wounds: no wounds Neuro: Speech: normal speech Motor exam (neuro): Abnormal motor strength present Sensory Exam: normal sensation Other: Unsteady gait wheelchair bound. Alert and oriented 2-3 intermittent confusion Extrem: General: edema bilateral Other: 1+-2+ Psych: Mental Status: mental status grossly normal Other: Flat affect Objective Data Vital Signs Vital Signs: Vital Signs - 24 hr 03/11/25 16:00 03/11/25 16:04 03/11/25 19:43 Temperature 98.4 F 98.1 F Pulse Rate 65 73 67 Respiratory Rate 14 22 H Blood Pressure 106/68 114/61 Pulse Oximetry 95 97 Oxygen Delivery 03/11/25 20:00 03/11/25 20:00 03/12/25 00:00 Temperature 98.0 F Pulse Rate 71 69 Respiratory Rate 22 H Blood Pressure 109/64 Pulse Oximetry 96 Oxygen Delivery Room Air 03/12/25 00:00 03/12/25 04:00 03/12/25 04:00 Temperature 97.9 F Pulse Rate 73 73 74 Respiratory Rate 20 Blood Pressure 120/69 Pulse Oximetry 93 Oxygen Delivery 03/12/25 07:47 03/12/25 09:25 03/12/25 11:47 Temperature 99 F 98.6 F Pulse Rate 80 75 Respiratory Rate 14 16 Blood Pressure 124/80 130/78 Pulse Oximetry 95 94 Oxygen Delivery Room Air 03/12/25 12:33 03/12/25 13:27 03/12/25 13:37 Temperature 98.2 F Pulse Rate 76 66 67 Respiratory Rate 18 14 20 Blood Pressure 134/79 98/65 L 101/69 Pulse Oximetry 95 98 95 Oxygen Delivery Room Air Room Air Room Air 03/12/25 13:47 Temperature Pulse Rate 72 Respiratory Rate 19 Blood Pressure 118/78 Pulse Oximetry 97 Oxygen Delivery Room Air Intake/Output Intake/Output: Intake & Output 03/09/25 03/10/25 03/11/25 03/12/25 23:59 23:59 23:59 23:59 Intake Total 2270 1175 Output Total 150 500 Balance 2120 675 Meds/Results Medications: Active Medications Generic Name Dose Route Start Last Admin Trade Name Freq PRN Reason Stop Dose Admin Artificial Tears 1 drop 03/11/25 08:12 03/11/25 21:25 Artificial Tears Ophth Soln 15 Ml Bottle EACH EYE 1 drop QID PRN Administration dry eye(s) Bisacodyl 10 mg 03/11/25 08:12 Bisacodyl 10 Mg Suppository RECTAL DAILY PRN Constipation Carbidopa/Levodopa 1 tablet 03/11/25 09:00 03/12/25 14:42 Carbidopa/Levodopa 25/100 Mg Tablet PO 1 tablet TID ELZA Administration Escitalopram Oxalate 20 mg 03/11/25 09:00 03/12/25 09:26 Escitalopram Oxalate 10 Mg Tablet PO 20 mg DAILY ELZA Administration Fluticasone Propionate 1 spray 03/11/25 09:00 03/12/25 09:26 Fluticasone Propionate 0.05% Na Spr 16 Gm Btl (*Bkc) NASAL 1 spray DAILY ELZA Administration Hydralazine HCl 10 mg 03/11/25 00:29 Hydralazine Hcl 20 Mg/Ml Vial IV PUSH Q8H PRN Blood Pressure - High Lactated Ringer's 1,000 mls @ 75 mls/hr 03/11/25 00:25 03/12/25 10:29 Lr - Lactated Ringers Iv IV CONT 75 mls/hr .[id number] ELZA Administration Lidocaine 1 patch 03/11/25 09:00 03/12/25 09:27 Lidocaine 5% Patch TRANSDERM Not Given Q24H ELZA Linaclotide 72 mcg 03/11/25 08:20 03/12/25 06:36 Linaclotide 72 Mcg Capsule PO 72 mcg DAILY@0630 ELZA Administration Morphine Sulfate 30 mg 03/11/25 09:00 03/12/25 09:26 Morphine Sulfate (*Crx) 30 Mg Tabcr PO 30 mg Q12H ELZA Administration Olopatadine HCl 1 drop 03/11/25 09:00 03/12/25 09:26 Olopatadine 0.1% Ophth Soln 5 Ml Btl RIGHT EYE 1 drop Q12HR ELZA Administration Ondansetron HCl 4 mg 03/11/25 00:25 03/12/25 06:36 Ondansetron Inj 4 Mg/2 Ml Vial IV PUSH 4 mg Q6H PRN Administration Nausea And Vomiting Oxycodone/Acetaminophen 1 tablet 03/11/25 08:12 03/12/25 06:36 Oxycodone/Acetaminophen (*Crx) 5-325 Mg Tablet PO 1 tablet Q4H PRN Administration Pain Rated 4-6 Pantoprazole Sodium 40 mg 03/12/25 21:00 Pantoprazole 40 Mg Tablet PO Q12HR [facility] Senna 8.6 mg 03/11/25 09:00 03/12/25 14:43 Sennosides 8.6 Mg Tablet PO 8.6 mg BID ELZA Administration Radiology Results: ITS Impressions Abdomen/Pelvis CT 03/11/25 11:39 IMPRESSION: 1. Acute pulmonary emboli in right upper lobe and right lower lobe. I called this result to Puja Guillory. 2. Wall thickening of the stomach, consistent with gastritis. 3. Distention of the sigmoid colon, consistent with adynamic ileus. 4. Extrahepatic biliary duct dilatation. GI Bleed Scan Nuclear Medicine 03/11/25 11:45 IMPRESSION: 1. No scintigraphic evidence for active gastrointestinal bleeding. Venous Doppler Study 03/11/25 16:40 IMPRESSION: 1. Nonocclusive deep venous thrombosis in the left popliteal vein. 2. No deep venous thrombosis in the right lower limb. Findings were discussed with Jessica Terrell, the nurse caring for the patient, at 4:45 PM. Labs Labs: Laboratory Results - last 24 hr 12/02/25 12/03/25 19:02 05:22 WBC 9.0 RBC 3.02 L Hgb 9.9 L 9.3 L Hct 30.0 L 28.5 L MCV 94.4 MCH 30.8 MCHC 32.6 RDW 13.1 Plt Count 153 MPV 11.1 H Sodium 133 L Potassium 3.0 L Chloride 102 Carbon Dioxide 27 Anion Gap 4 BUN 15 Creatinine 0.98 Estim Creat Clear Calc 52 Estimated GFR > 60 Glucose 96 Calcium 7.9 L Magnesium 1.5 L Attestation: I personally reviewed all lab results Imaging Attestation: I personally reviewed this imaging study Radiologist's impression: ITS Impressions Abdomen/Pelvis CT 03/11/25 11:39 IMPRESSION: 1. Acute pulmonary emboli in right upper lobe and right lower lobe. I called this result to Puja Guillory. 2. Wall thickening of the stomach, consistent with gastritis. 3. Distention of the sigmoid colon, consistent with adynamic ileus. 4. Extrahepatic biliary duct dilatation. GI Bleed Scan Nuclear Medicine 03/11/25 11:45 IMPRESSION: 1. No scintigraphic evidence for active gastrointestinal bleeding. Venous Doppler Study 03/11/25 16:40 IMPRESSION: 1. Nonocclusive deep venous thrombosis in the left popliteal vein. 2. No deep venous thrombosis in the right lower limb. Findings were discussed with Jessica Terrell, the nurse caring for the patient, at 4:45 PM. Quality If No VTE Prophylaxis Answer both mechanical and pharmacologic: Reason no mechanical VTE proph: medical contraindication Reason no pharmacologic proph: medical contraindication -Patient's previous records reviewed on admission -ER notes reviewed in detail on admission -discussed all findings and current treatment plan with patient/Family/POA -Consultations reviewed for recommendations -Patient's disposition for safe discharge discussed with test case developer -radiology imaging, EKG and test results I have personally reviewed and interpreted unless otherwise specified Dictation performed by [employer] direct speech recognition software, therefore ticker maintainer variants and typographical errors may occur. Hospitalist MIPS Advance Care Plan I have confirmed that the patient's Advanced Care Plan is present, code status is documented, or surrogate decision maker is listed in patient medical record.: Yes Medication Reconciliation I have utilized all available resources to obtain, update and review the patients current medications (includes all prescriptions, OTC, herbals, c annabis, and nutritional supplements).: Yes The patient is not eligible for med reconciliation; the patient is in a emergent medical situation where delaying treatment would jeopardize the patients health.: No
[2025-03-12] MEDS: PERFLUTREN LIPID MICROSPHERES 1.5 ML VIAL DILUTED TO 10 ML TOTAL VOLUME IV PUSH (16:32)
--- NOTE | 2025-03-12 16:32 | IVDEFINITY ---
Prior to administration of IV Definity the patient was educated on the risks and benefits of the imaging enhancing agent including potential adverse side effects. The patient verbalized understanding. Allergies were verified. No exclusion criteria were identified and at least one of the following inclusion criteria were met: 1) physician request, 2) patient technically difficult to image (per the [place] [employer] guidelines of two or more segments not discernable within the apical view), or 3) questionable left ventricular function. ?
[2025-03-12] MEDS: MAGNESIUM SULF 2 GM/WATER 50ML 2 GM/50 ML BAG IVPB (20:48)
[2025-03-12] MEDS: PANTOPRAZOLE 40 MG TABLET PO (20:49)
[2025-03-13] VITALS (7 sets, daily range): BP systolic 123–144; BP diastolic 72–86; PULSE 73–82; RESP 14–18; TEMP 36.4–37.2; O2SAT 94–98
[2025-03-13] MEDS: LACTATED RINGERS 1,000 ML 75 ML IV CONT (05:17)
[2025-03-13] MEDS: LINACLOTIDE 72 MCG CAPSULE PO (05:18)
[2025-03-13 06:37] LABS: Hematocrit 29.3 % (42.0-52.0); Hemoglobin 9.8 g/dL (14.0-18.0); Mean Corpuscular HGB Conc 33.4 g/dl (32-36); Mean Corpuscular Hemoglobin 31.3 pg (26-34); Mean Corpuscular Volume 93.6 fl (80-100); Platelet Count Result 155 k/mm3 (150-375); Red Blood Count 3.13 M/mm3 (4.6-6.20); White Blood Count 9.0 K/mm3 (4.5-10.0)
[2025-03-13 06:48] LABS: Alanine Aminotransferase 16 U/L (6-50); Albumin Level 3.2 g/dL (3.5-5.1); Alkaline Phosphatase 84 U/L (38-126); Anion Gap 6 mmol/L (4-12); Aspartate Amino Transferase 23 U/L (17-59); Bilirubin,Total 1.1 mg/dL (0.2-1.3); Blood Urea Nitrogen 12 mg/dL (9-20); Calcium 8.3 mg/dL (8.4-10.2); Carbon Dioxide 25 mmol/L (22-30); Chloride 101 mmol/L (98-107); Estimated CRCL calculation 52 ml/min; Estimated Glomerular Filt Rate > 60; Glucose 106 mg/dL (65-110); Magnesium 1.8 mg/dL (1.6-2.3); Potassium 3.4 mmol/L (3.4-5.0); Sodium 132 mmol/L (137-145); Total Protein 6.0 g/dL (6.3-8.2)
[2025-03-13] MEDS: ESCITALOPRAM OXALATE 10 MG TABLET 20 MG PO (08:41)
[2025-03-13] MEDS: PANTOPRAZOLE 40 MG TABLET PO (08:41)
[2025-03-13] MEDS: FLUTICASONE PROPIONATE 0.05% NA SPR 16 GM BTL (*BKC) 1 SPRAY NASAL (08:41)
[2025-03-13] MEDS: CARBIDOPA/LEVODOPA 25/100 MG TABLET 1 TABLET PO ×2 (08:41→12:25)
[2025-03-13] MEDS: OLOPATADINE 0.1% OPHTH SOLN 5 ML BTL 1 DROP RIGHT EYE (08:41)
[2025-03-13] MEDS: SENNOSIDES 8.6 MG TABLET PO (08:41)
[2025-03-13] MEDS: LIDOCAINE 5% PATCH 1 PATCH TRANSDERM (08:41)
[2025-03-13] MEDS: MORPHINE SULFATE (*CRX) 30 MG TABCR PO (08:41)
--- NOTE | 2025-03-13 10:22 | PM.CNGS ---
Assessment and Plan Assessment and plan (1) Acute pulmonary embolism: Code(s): I26.99 - Other pulmonary embolism without acute cor pulmonale Status: Acute Assessment and Plan: Patient presented to [facility] 3 days ago with concerns for coffee-ground emesis. Stool guaiac positive. Started on Protonix and transferred to [facility]. H/H has remained stable. CT demonstrated PE in right lung. Doppler showed nonocclusive DVT in left popliteal vein. An EGD was performed that demonstrated gastritis with bleeding. Patient was previously on Eliquis for Afib, but has not taken this since August 2024. Hgb stable at 9.8 today. Not currently being anticoagulated. Patient is not a good candidate for medical anticoagulation with GI bleeding. Surgery team consulted for placement of IVC filter. This will be done tomorrow. Surgeon spoke with patient's POA who consents to proceed with surgery. Ok for patient to have diet today. Will make NPO at midnight. -After consulting this patient and completing most of the note I was informed that the patient will be transferred to [facility] for further worrkup due to heart strain. (2) DVT (deep venous thrombosis): Code(s): I82.409 - Acute embolism and thrombosis of unspecified deep veins of unspecified lower extremity Status: Acute (3) Gastritis with bleeding: Code(s): K29.71 - Gastritis, unspecified, with bleeding Status: Acute (4) Atrial fibrillation: Code(s): I48.91 - Unspecified atrial fibrillation Status: Acute Plan Discussed patient's case and plan of care with Dr. Sifuentes. History of Present Illness Consult details Consult date: 03/13/25 Reason for consult: other (IVC filter) Narrative: Patient is an 80 year old man with history of PVD, Afib (on Eliquis, but not taken since August 2024), and HTN who we have been asked to see in surgical consultation for placement of an IVC filter. Patient presented to the emergency department in [place] on 03/10/2025 with complaints of coffee-ground emesis. Hemoglobin and hematocrit stable at 11.4 and 35.6 respectively. Fecal occult blood positive. Patient given IV Protonix. Transferred to [facility]. CT of the abdomen and pelvis demonstrated acute pulmonary emboli in right upper lobe and right lower lobe. Wall thickening consistent with gastritis in stomach. Nuc med GI bleed scan demonstrated no evidence for active GI bleeding. Doppler studies showed nonocclusive DVT in the left popliteal vein. GI was consulteed and EGD was performed yesterday. This showed small Zenker diverticulum, severe hemorrhagic gastritis in the fundis and antrum. General surgery team was consulted for placement of IVC filter, as patient is not a good candidate for anticoagulation. Reportedly, he has not taken his Eliquis since August 2024. Patient is very confused upon interview today. Surgeon spoke with patient's POA. 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 Depression Cataracts, bilateral Glaucoma Hemorrhoids GERD (gastroesophageal reflux disease) BPH (benign prostatic hyperplasia) Peripheral vascular disease Atrial fibrillation Hyperlipidemia Hypertension Chronic back pain Surgical History Surgical History (Updated 03/11/25 @ 00:44 by Leonila Lovell APRN) H/O cataract extraction H/O colonoscopy History of bladder surgery History of bladder cancer 2014 H/O prostatectomy Family History Family History Mother Breast cancer Social History Social History (Updated 03/11/25 @ 00:46 by Leonila Lovell APRN) Social History: The patient resides at [facility]. He is single and has no children. He has a Gerogette listed as his contact. He is retired from the [employer]. Code status: DNR Smoking packs per day: 2 Smoking cigarettes per day: 40.0 Years smoked: 7 Smoking pack-years: 14.00 Smoking status: Former smoker Tobacco type: cigarettes, pipe and cigars Second hand tobacco smoke exposure: No Smoking end date: 05/20/73 Alcohol intake: never Substance use: never Substance use type: does not use Lack of Transportation: No Lack of Food: Never True Current Housing: I Have Housing Concerned About Future Housing: No Difficulty Paying Gas/Electric Bills: No Difficulty Paying for Meds: No Currently Unemployed: No Education: Bachelor's Degree Difficulty w/ Childcare or Family Care: No Spiritual care concerns: No Meds Home Medications and Allergies Home Medications ?Medication ?Instructions ?Recorded ?Confirmed ?Type acetaminophen 325 mg tablet 650 mg (2 x 325 mg) PO Q4H PRN 05/22/24 03/11/25 Rx Mild Pain (1-3) Or Fever #10 tabs amlodipine 5 mg tablet (Norvasc) 5 mg PO DAILY #10 tabs 05/22/24 03/11/25 Rx oxycodone-acetaminophen 5 mg-325 1 tablet PO Q4H PRN Pain Rated 4-6 05/22/24 03/11/25 Rx mg tablet #20 tabs linaclotide 72 mcg capsule 72 mcg PO DAILY #20 caps 02/28/25 03/11/25 Rx (Linzess) ondansetron 4 mg disintegrating 4 mg PO Q6H PRN nausea and 02/28/25 03/11/25 Rx tablet vomiting #14 tabs alprazolam 0.5 mg tablet 0.5 mg PO DAILY 03/11/25 03/11/25 History aluminum-mag hydroxide-simethicone 15 ml PO Q6H PRN indigestion 03/11/25 03/11/25 History 400 mg-400 mg-40 mg/5 mL oral susp (Almacone-2) artifi.tears(hypromellose)(PF) 1.7 1 drp EACH EYE QID PRN dry eye(s) 03/11/25 03/11/25 History % eye drops with applicator bisacodyl 10 mg rectal suppository 10 mg RECTAL DAILY PRN constipation 03/11/25 03/11/25 History bisacodyl 5 mg tablet 10 mg PO DAILY PRN constipation 03/11/25 03/11/25 History carbidopa 25 mg-levodopa 100 mg 1 tablet PO TID 03/11/25 03/11/25 History tablet escitalopram oxalate 20 mg tablet 20 mg PO DAILY 03/11/25 03/11/25 History fluticasone propionate 50 1 spray intranasal DAILY 03/11/25 03/11/25 History mcg/actuation nasal spray,suspension furosemide 40 mg tablet 40 mg PO DAILY 03/11/25 03/11/25 History glycerin (adult) 1 supp RECTAL Q12H PRN constipation 03/11/25 03/11/25 History lidocaine 5 % topical cream 1 applic topical BID PRN pain 03/11/25 03/11/25 History lidocaine 5 % topical patch 1 patch transdermal Q24H 03/11/25 03/11/25 History (Lidoderm) morphine 30 mg tablet,extended 30 mg PO Q12H 03/11/25 03/11/25 History release naloxegol 25 mg tablet (Movantik) 25 mg PO DAILY 03/11/25 03/11/25 History naloxone 4 mg/actuation nasal 4 mg intranasal Q3M PRN opioid 03/11/25 03/11/25 History spray (Narcan) overdose olopatadine 1 drp RIGHT EYE DAILY 03/11/25 03/11/25 History phenylephrine 0.25 %-mineral oil 1 applic RECTAL QID PRN hemorrhoids 03/11/25 03/11/25 History 14 %-petrolatm 74.9 % rectal ointment (Preparation H) polyethylene glycol 3350 17 17 g PO DAILY 03/11/25 03/11/25 History gram/dose oral powder (Miralax) potassium chloride 20 mEq 40 meq PO DAILY 03/11/25 03/11/25 History tablet,extended release(part/cryst) sennosides 8.6 mg tablet (Laxative 8.6 mg PO BID 03/11/25 03/11/25 History (sennosides)) Allergies Allergy/AdvReac Type Severity Reaction Status Date / Time No Known Allergies Allergy Verified 03/11/25 01:16 Vital Signs Vital Signs - 24 hr 03/12/25 11:47 03/12/25 12:06 03/12/25 12:33 Temperature 98.6 F 98.2 F Pulse Rate 75 75 76 Respiratory Rate 16 18 Blood Pressure 130/78 134/79 Pulse Oximetry 94 95 Oxygen Delivery Room Air 03/12/25 13:27 03/12/25 13:37 03/12/25 13:47 Temperature Pulse Rate 66 67 72 Respiratory Rate 14 20 19 Blood Pressure 98/65 L 101/69 118/78 Pulse Oximetry 98 95 97 Oxygen Delivery Room Air Room Air Room Air 03/12/25 16:00 03/12/25 16:04 03/12/25 19:32 Temperature 98.6 F Pulse Rate 75 74 74 Respiratory Rate 17 17 Blood Pressure 138/89 Pulse Oximetry 94 94 Oxygen Delivery Room Air 03/12/25 19:59 03/13/25 00:00 03/13/25 00:35 Temperature 98.2 F 98.1 F Pulse Rate 78 77 77 Respiratory Rate 17 16 Blood Pressure 135/78 123/72 Pulse Oximetry 93 94 Oxygen Delivery 03/13/25 04:35 03/13/25 07:50 Temperature 98.4 F 98.9 F Pulse Rate 78 76 Respiratory Rate 18 16 Blood Pressure 141/84 H 135/86 Pulse Oximetry 95 98 Oxygen Delivery Exam Const: General: comfortable and no acute distress Eyes: General: appearance normal, both eyes and all related structures Resp: Effort & Inspection: normal respiratory effort Auscultation: clear to auscultation bilaterally Cardio: Rate: regular rate Skin: General skin exam: normal color and no rashes or lesions noted Extrem: Other: palpable femoral pulses. No overlying skin changes. Psych: Other: Patient very confused. Results Labs 03/13/25 06:26 03/13/25 06:26 Labs: Abnormal lab results 03/13/25 Range/Units 06:26 RBC 3.13 L (4.6-6.20) M/mm3 Hgb 9.8 L (14.0-18.0) g/dL Hct 29.3 L (42.0-52.0) % MPV 10.9 H (7.4-10.4) fl Sodium 132 L (137-145) mmol/L Calcium 8.3 L (8.4-10.2) mg/dL Total Protein 6.0 L (6.3-8.2) g/dL Albumin 3.2 L (3.5-5.1) g/dL Diabetes panel 03/13/25 Range/Units 06:26 Sodium 132 L (137-145) mmol/L Potassium 3.4 (3.4-5.0) mmol/L Chloride 101 (98-107) mmol/L Carbon Dioxide 25 (22-30) mmol/L BUN 12 (9-20) mg/dL Creatinine 0.99 (0.7-1.3) mg/dL Glucose 106 (65-110) mg/dL Calcium 8.3 L (8.4-10.2) mg/dL AST 23 (17-59) U/L ALT 16 (6-50) U/L Alkaline Phosphatase 84 (38-126) U/L Total Protein 6.0 L (6.3-8.2) g/dL Albumin 3.2 L (3.5-5.1) g/dL Calcium panel 03/13/25 Range/Units 06:26 Calcium 8.3 L (8.4-10.2) mg/dL Albumin 3.2 L (3.5-5.1) g/dL Pituitary panel 03/13/25 Range/Units 06:26 Sodium 132 L (137-145) mmol/L Potassium 3.4 (3.4-5.0) mmol/L Chloride 101 (98-107) mmol/L Carbon Dioxide 25 (22-30) mmol/L BUN 12 (9-20) mg/dL Creatinine 0.99 (0.7-1.3) mg/dL Glucose 106 (65-110) mg/dL Calcium 8.3 L (8.4-10.2) mg/dL Adrenal panel 03/13/25 Range/Units 06:26 Sodium 132 L (137-145) mmol/L Potassium 3.4 (3.4-5.0) mmol/L Chloride 101 (98-107) mmol/L Carbon Dioxide 25 (22-30) mmol/L BUN 12 (9-20) mg/dL Creatinine 0.99 (0.7-1.3) mg/dL Glucose 106 (65-110) mg/dL Calcium 8.3 L (8.4-10.2) mg/dL Total Bilirubin 1.1 (0.2-1.3) mg/dL AST 23 (17-59) U/L ALT 16 (6-50) U/L Alkaline Phosphatase 84 (38-126) U/L Total Protein 6.0 L (6.3-8.2) g/dL Albumin 3.2 L (3.5-5.1) g/dL All other labs normal.
--- NOTE | 2025-03-13 11:44 | P.TS_ITS ---
Transfer Discharge Sum: Prov Provider Date of admission: 03/12/25 10:13 Primary care physician: Kyle Soares MD Admitting clinician: Juwan guzman Oca, MD Attending physician on admission: Juwan guzman Oca Consults: 03/11/25 Consult to Physician Routine Comment: LVM @ 0813 [facility] Consulting Provider: Alvarez Mcgrath teacher physically impaired/MD group to consult: GI Reason for consultation: Upper GI bleed Has provider been notified: Yes Wound/ET Consult Routine Reason for Consult:: Sacral wound 03/12/25 Consult to Physician Routine Comment: Spoke to ofc @ 1730 03/12 [facility] Consulting Provider: Serge Sifuentes teacher physically impaired/MD group to consult: Surgery Reason for consultation: IVC filter for DVT Has provider been notified: Yes Attending physician on discharge: Maxine Dillon Discharging clinician: Margo Chaney Anticipated date of transfer: 03/13/25 Receiving physician/facility: [facility] DS: Admitting Diagnosis Discharge Date 03/13/2025 Admitting Diagnosis Hematemesis DS: Discharge Diagnosis Discharge Diagnosis (1) Hematemesis: Code(s): K92.0 - Hematemesis Status: Acute Assessment and Plan: Patient was noted to have 5 episodes hematemesis at the [place] [facility]. EGD showed with bleeding. CT ABD no acute findings incidental finding PE * GI following recommends no anticoagulation for 4 weeks due gastritis had severe erythematous, hemorrhagic, friable and petechiae changes * Transition to pantoprazole 40 mg b.i.d. per GI * Continue to monitor H&H * Transfuse PRBCs if hgb <7.0 (2) Gastritis with bleeding: Code(s): K29.71 - Gastritis, unspecified, with bleeding Status: Acute Assessment and Plan: See Above (3) DVT (deep venous thrombosis): Code(s): I82.409 - Acute embolism and thrombosis of unspecified deep veins of unspecified lower extremity Status: Acute Assessment and Plan: Patient found to have acute pulmonary embolism venous Doppler studies were performed and patient was found to have a non occlusive deep vein thrombosis in the left popliteal vein * Currently unable to start anticoagulation due to bleeding gastritis * Consult general surgery for possible IVC filter (4) Acute pulmonary embolism: Code(s): I26.99 - Other pulmonary embolism without acute cor pulmonale Status: Acute Assessment and Plan: Patient with acute pulmonary emboli in right upper lobe and right lower lobe * Unable to start anticoagulation due to bleeding gastritis * Continue to monitor respiratory status currently on room air and denying any shortness of breath or chest pain * Will get echocardiogram just to rule out any right-sided heart strain * Patient likely not the best candidate for thrombectomy due to comorbidities and location patient currently hemodynamically stable will wait for echocardiogram results (5) Atrial fibrillation: Code(s): I48.91 - Unspecified atrial fibrillation Status: Acute Assessment and Plan: patient continues to have an irregular heartbeat. * Unable to start anticoagulation due to gastritis bleeding (6) Hypertension: Code(s): I10 - Essential (primary) hypertension Status: Acute Assessment and Plan: * Resume amlodipine * Monitor BP per unit protocol Transfer Discharge Sum: Med Medications Active and Home Medications: Home Medications acetaminophen 325 mg tablet 650 mg (2 x 325 mg) PO Q4H PRN Mild Pain (1-3) Or Fever #10 tabs 05/22/24 [Rx Confirmed 03/11/25] amlodipine 5 mg tablet (Norvasc) 5 mg PO DAILY #10 tabs 05/22/24 [Rx Confirmed 03/11/25] oxycodone-acetaminophen 5 mg-325 mg tablet 1 tablet PO Q4H PRN Pain Rated 4-6 #20 tabs 05/22/24 [Rx Confirmed 03/11/25] linaclotide 72 mcg capsule (Linzess) 72 mcg PO DAILY #20 caps 02/28/25 [Rx Confirmed 03/11/25] ondansetron 4 mg disintegrating tablet 4 mg PO Q6H PRN nausea and vomiting #14 tabs 02/28/25 [Rx Confirmed 03/11/25] alprazolam 0.5 mg tablet 0.5 mg PO DAILY 03/11/25 [History Confirmed 03/11/25] aluminum-mag hydroxide-simethicone 400 mg-400 mg-40 mg/5 mL oral susp (Almacone- 2) 15 ml PO Q6H PRN indigestion 03/11/25 [History Confirmed 03/11/25] artifi.tears(hypromellose)(PF) 1.7 % eye drops with applicator 1 drp EACH EYE QID PRN dry eye(s) 03/11/25 [History Confirmed 03/11/25] bisacodyl 10 mg rectal suppository 10 mg RECTAL DAILY PRN constipation 03/11/25 [History Confirmed 03/11/25] bisacodyl 5 mg tablet 10 mg PO DAILY PRN constipation 03/11/25 [History Confirmed 03/11/25] carbidopa 25 mg-levodopa 100 mg tablet 1 tablet PO TID 03/11/25 [History Confirmed 03/11/25] escitalopram oxalate 20 mg tablet 20 mg PO DAILY 03/11/25 [History Confirmed 03/11/25] fluticasone propionate 50 mcg/actuation nasal spray,suspension 1 spray intranasal DAILY 03/11/25 [History Confirmed 03/11/25] furosemide 40 mg tablet 40 mg PO DAILY 03/11/25 [History Confirmed 03/11/25] glycerin (adult) 1 supp RECTAL Q12H PRN constipation 03/11/25 [History Confirmed 03/11/25] lidocaine 5 % topical cream 1 applic topical BID PRN pain 03/11/25 [History Confirmed 03/11/25] lidocaine 5 % topical patch (Lidoderm) 1 patch transdermal Q24H 03/11/25 [History Confirmed 03/11/25] morphine 30 mg tablet,extended release 30 mg PO Q12H 03/11/25 [History Confirmed 03/11/25] naloxegol 25 mg tablet (Movantik) 25 mg PO DAILY 03/11/25 [History Confirmed 06/04] naloxone 4 mg/actuation nasal spray (Narcan) 4 mg intranasal Q3M PRN opioid overdose 03/11/25 [History Confirmed 03/11/25] olopatadine 1 drp RIGHT EYE DAILY 03/11/25 [History Confirmed 03/11/25] phenylephrine 0.25 %-mineral oil 14 %-petrolatm 74.9 % rectal ointment (Preparation H) 1 applic RECTAL QID PRN hemorrhoids 03/11/25 [History Confirmed 03/11/25] polyethylene glycol 3350 17 gram/dose oral powder (Miralax) 17 g PO DAILY 03/11/25 [History Confirmed 03/11/25] potassium chloride 20 mEq tablet,extended release(part/cryst) 40 meq PO DAILY 03/11/25 [History Confirmed 03/11/25] sennosides 8.6 mg tablet (Laxative (sennosides)) 8.6 mg PO BID 03/11/25 [History Confirmed 03/11/25] Active Medications Artificial Tears (Artificial Tears Ophth Soln 15 Ml Bottle) 1 drop EACH EYE QID PRN PRN Reason: dry eye(s) Last Admin: 03/11/25 21:25 Dose: 1 drop Bisacodyl (Bisacodyl 10 Mg Suppository) 10 mg RECTAL DAILY PRN PRN Reason: Constipation Carbidopa/Levodopa (Carbidopa/Levodopa 25/100 Mg Tablet) 1 tablet PO TID [facility] Last Admin: 03/13/25 08:41 Dose: 1 tablet Escitalopram Oxalate (Escitalopram Oxalate 10 Mg Tablet) 20 mg PO DAILY [facility] Last Admin: 03/13/25 08:41 Dose: 20 mg Fluticasone Propionate (Fluticasone Propionate 0.05% Na Spr 16 Gm Btl (*Bkc)) 1 spray NASAL DAILY [facility] Last Admin: 03/13/25 08:41 Dose: 1 spray Hydralazine HCl (Hydralazine Hcl 20 Mg/Ml Vial) 10 mg IV PUSH Q8H PRN PRN Reason: Blood Pressure - High Lactated Ringer's (Lr - Lactated Ringers Iv) 1,000 mls @ 75 mls/hr IV CONT .[id number] [facility] Last Admin: 03/13/25 05:17 Dose: 75 mls/hr Lidocaine (Lidocaine 5% Patch) 1 patch TRANSDERM Q24H [facility] Last Admin: 03/13/25 08:41 Dose: 1 patch Linaclotide (Linaclotide 72 Mcg Capsule) 72 mcg PO DAILY@0630 [facility] Last Admin: 03/13/25 05:18 Dose: 72 mcg Morphine Sulfate (Morphine Sulfate (*Crx) 30 Mg Tabcr) 30 mg PO Q12H [facility] Last Admin: 03/13/25 08:41 Dose: 30 mg Olopatadine HCl (Olopatadine 0.1% Ophth Soln 5 Ml Btl) 1 drop RIGHT EYE Q12HR [facility] Last Admin: 03/13/25 08:41 Dose: 1 drop Ondansetron HCl (Ondansetron Inj 4 Mg/2 Ml Vial) 4 mg IV PUSH Q6H PRN PRN Reason: Nausea And Vomiting Last Admin: 03/12/25 06:36 Dose: 4 mg Oxycodone/Acetaminophen (Oxycodone/Acetaminophen (*Crx) 5-325 Mg Tablet) 1 tablet PO Q4H PRN PRN Reason: Pain Rated 4-6 Last Admin: 03/12/25 06:36 Dose: 1 tablet Pantoprazole Sodium (Pantoprazole 40 Mg Tablet) 40 mg PO Q12HR [facility] Last Admin: 03/13/25 08:41 Dose: 40 mg Senna (Sennosides 8.6 Mg Tablet) 8.6 mg PO BID [facility] Last Admin: 03/13/25 08:41 Dose: 8.6 mg Transfer Discharge Sum: Hosp Hospital Course Hospital course: Admission: This is an 80-year-old male patient who resides at [facility]. The patient was brought to [place] via ambulance. The staff reported that the patient was vomiting up coffee-ground material up to 5 times today. He denied any fever ,chills, or diarrhea. He denied any history of GI bleed. His H&H was noted to be 11.4 and 35.6. His previous H&H was 10.7 and 32.5 on 02/27/2025. His anion gap is 13. His fecal for occult blood was positive. The patient was given IV Protonix, Zofran, and IV fluids in the emergency room at [facility]. He is a poor historian No imaging was performed at [facility]. Hospital Course: Patient was transferred from [facility] and admitted to [facility] for further evaluation by GI. upon arrival to [facility] patient was placed NPO and H&H monitored q.6 however patient never needed to have a blood transfusion but hemoglobin continued to have a downward trend. Patient was then taken to EGD where he was found to have gastritis had severe erythematous, hemorrhagic, friable and petechiae changes and it was recommended at least 4 weeks with no anticoagulation until follow-up. Patient was then continued on PPI b.i.d.. However an incidental finding on patient's CT report showed right pulmonary emboli in the upper and lower lobes as well as a DVT to the left popliteal. I then ordered a echocardiogram to evaluate for any right heart strain and unfortunately echo showed right atrial chamber moderately enlarged and right ventricle moderately enlarged with moderate pulmonary hypertension with pressure of 52 mmHg and a trivial pericardial effusion. I had initially consulted General surgery to have an IVC filter placed but due to new findings of right heart strain from PE I recommended transfer to [facility] for further evaluation for possible thrombectomy. Spoke patient's POA and patient both agreed they did want intervention patient at high risk due to immobility bed-bound wheelchair-bound to continue to have recurrence of blood clots. patient is also a high-risk due to chronic atrial fibrillation likely need a Watchman unable to resume any anticoagulation therapy. Patient was accepted to [facility]'s ICU with consult to thoracic surgery for further evaluation and treatment of PE with right heart strain and lower left extremity DVT with contraindication to anticoagulated therapy due to patient's high risk of bleeding from severe gastritis. patient was hemodynamically stable and on room air at time discharge in no acute distress. Transferred EMS Patient Condition: Serious Time Spent with Patient Time attestation: Total time spent providing and/or coordinating transfer services: Total time spent: Greater than 30 minutes Exam Const: General: comfortable and no acute distress Other: Pleasant chronically Ill male HENMT: Mouth: Yes dry mucous membranes Eyes: General: appearance normal, both eyes and all related structures Resp: Effort & Inspection: normal respiratory effort Auscultation: clear to auscultation bilaterally Cardio: Rate: regular rate Rhythm: regular rhythm GI: Auscultation: normal bowel sounds Skin: General skin exam: normal color and no rashes or lesions noted Wounds: no wounds Neuro: Speech: normal speech Motor exam (neuro): Abnormal motor strength present Sensory Exam: normal sensation Other: Unsteady gait wheelchair bound. Alert and oriented 2-3 intermittent confusion Extrem: General: edema bilateral Other: 1+-2+ Psych: Mental Status: mental status grossly normal Other: Flat affect DS: Data Data Completed and Pending Pending studies at discharge: Pending at discharge 03/12/25 13:30 Surgical [PTH] Routine Labs on day of discharge: Labs from last 24 hours 03/13/25 06:26 WBC 9.0 RBC 3.13 L Hgb 9.8 L Hct 29.3 L MCV 93.6 MCH 31.3 MCHC 33.4 RDW 13.0 Plt Count 155 MPV 10.9 H Sodium 132 L Potassium 3.4 Chloride 101 Carbon Dioxide 25 Anion Gap 6 BUN 12 Creatinine 0.99 Estim Creat Clear Calc 52 Estimated GFR > 60 Glucose 106 Calcium 8.3 L Magnesium 1.8 Total Bilirubin 1.1 AST 23 ALT 16 Alkaline Phosphatase 84 Total Protein 6.0 L Albumin 3.2 L Imaging Radiologist's impression: Summary 1. Definity contrast administered improved wall motion interpretation. 2. Left ventricular chamber dimension is normal. 3. Left ventricular systolic function is normal, estimated at 65-70. 4. The left ventricular diastolic function is abnormal. 5. E/e' 7 is not elevated. 6. Atrial fibrillation. 7. Right ventricular chamber dimension is moderately enlarged. 8. Right ventricular systolic function is moderately reduced and with mildly abnormal TAPSE 1.7 cm. 9. Left atrial chamber dimension is moderately enlarged. 10. Right atrial chamber dimension is moderately enlarged. 11. There is moderate aortic valve sclerosis. 12. There is mild to moderate mitral valve regurgitation. 13. There is mild tricuspid valve regurgitation. 14. Moderate pulmonary hypertension, estimated pulmonary arterial systolic pressure is 52 mmHg. 15. There is trivial pericardial effusion. Left Ventricle Left ventricular chamber dimension is normal. Left ventricular systolic function is normal, estimated at 65-70. The left ventricular diastolic function is abnormal. Definity contrast administered improved wall motion interpretation. E/e' 7 is not elevated. Atrial fibrillation. Right Ventricle Right ventricular chamber dimension is moderately enlarged. Right ventricular systolic function is moderately reduced and with mildly abnormal TAPSE 1.7 cm. Left Atria Left atrial chamber dimension is moderately enlarged. Right Atria Right atrial chamber dimension is moderately enlarged. Aortic Valve The aortic valve is trileaflet. There is moderate aortic valve sclerosis. There is no aortic valve stenosis. There is no aortic valve regurgitation. Pulmonic Valve There is no pulmonic regurgitation. Mitral Valve There is no mitral valve stenosis. There is mild to moderate mitral valve regurgitation. Tricuspid Valve There is mild tricuspid valve regurgitation. Moderate pulmonary hypertension, estimated pulmonary arterial systolic pressure is 52 mmHg. Pericardium/Pleural There is trivial pericardial effusion. Inferior Vena Cava Normal inferior vena cava with >50% collapse upon inspiration consistent with normal right atrial pressure, 5 mmHg. Aorta The aortic root size at the sinus of Valsalva is normal. Radiology Results: ITS Impressions Abdomen/Pelvis CT 03/11/25 11:39 IMPRESSION: 1. Acute pulmonary emboli in right upper lobe and right lower lobe. I called thi s result to Puja Guillory. 2. Wall thickening of the stomach, consistent with gastritis. 3. Distention of the sigmoid colon, consistent with adynamic ileus. 4. Extrahepatic biliary duct dilatation. GI Bleed Scan Nuclear Medicine 03/11/25 11:45 IMPRESSION: 1. No scintigraphic evidence for active gastrointestinal bleeding. Venous Doppler Study 03/11/25 16:40 IMPRESSION: 1. Nonocclusive deep venous thrombosis in the left popliteal vein. 2. No deep venous thrombosis in the right lower limb. Findings were discussed with Jessica Terrell, the nurse caring for the patient, at 4:45 PM. Additional Comments Additional comments: -Patient's previous records reviewed on admission -ER notes reviewed in detail on admission -discussed all findings and current treatment plan with patient/Family/POA -Consultations reviewed for recommendations -Patient's disposition for safe discharge discussed with casework manager -radiology imaging, EKG and test results I have personally reviewed and interpreted unless otherwise specified Dictation performed by [employer] direct speech recognition software, therefore welfare eligibility interviewer variants and typographical errors may occur.
--- NOTE | 2025-03-13 12:45 | WPDANESPN ---
Anes - Prog Note Post-Op Date/Time: 03/13/25 12:45 Cardiovascular status: normal Respiratory status: normal Airway patency: baseline Mental status: baseline Post-Op hydration status: normal Vital Signs: Last Vital Signs Temp 36.4 C L 03/13/25 12:00 Pulse 82 03/13/25 12:00 Resp 14 03/13/25 12:00 BP 144/82 H 03/13/25 12:00 Pulse Ox 96 03/13/25 12:00 O2 Del Method Room Air 03/13/25 09:20 Pain Score (VAS): 1 I/O: Intake & Output 03/12/25 03/13/25 03/13/25 23:59 07:59 15:59 Intake Total 1440 450 Output Total 350 100 Balance 1090 -100 450 Laboratory Tests 03/13/25 06:26 03/13/25 06:26 03/13/25 06:26 WBC 9.0 RBC 3.13 L Hgb 9.8 L Hct 29.3 L MCV 93.6 MCH 31.3 MCHC 33.4 RDW 13.0 Plt Count 155 MPV 10.9 H Sodium 132 L Potassium 3.4 Chloride 101 Carbon Dioxide 25 Anion Gap 6 BUN 12 Creatinine 0.99 Estim Creat Clear Calc 52 Estimated GFR > 60 Glucose 106 Calcium 8.3 L Magnesium 1.8 Total Bilirubin 1.1 AST 23 ALT 16 Alkaline Phosphatase 84 Total Protein 6.0 L Albumin 3.2 L Patient Feedback: Patient satisfied with anesthetic care.
--- NOTE | 2025-03-13 13:47 | PC.NURSE ---
Patient transfer ordered for patient to go to [facility] on [address]. Report given to Thania SNEED. ALS transport called.
== END 2025-03-13 14:00 | disposition short-term general hospital (02) | DRG 377 ==
PROVIDERS: Internal Medicine Gastroenterology; Nurse Practitioner; Nurse Practitioner Adult Health; Admitting Provider Student in an Organized Health Care Education/Training Program; PCP Family Medicine; Visit Provider Nurse Practitioner Family
PROC: 0DJ08ZZ Inspection of Upper Intestinal Tract, Via Natural or Artificial Opening Endoscopic (ICD-10-PCS; principal; 2025-03-12 13:00)
DX: K29.01 Acute gastritis with bleeding (principal); E43 Unspecified severe protein-calorie malnutrition; I26.99 Other pulmonary embolism without acute cor pulmonale; I82.432 Acute embolism and thrombosis of left popliteal vein; E78.5 Hyperlipidemia, unspecified; K22.5 Diverticulum of esophagus, acquired; M54.59 Other low back pain; H26.9 Unspecified cataract; H40.9 Unspecified glaucoma; I73.9 Peripheral vascular disease, unspecified; F32.A Depression, unspecified; I10 Essential (primary) hypertension; K59.00 Constipation, unspecified; I48.91 Unspecified atrial fibrillation; Z66 Do not resuscitate; Z87.19 Personal history of other diseases of the digestive system; Z90.79 Acquired absence of other genital organ(s); Z86.73 Personal history of transient ischemic attack (TIA), and cerebral infarction without residual deficits; Z87.891 Personal history of nicotine dependence; Z79.01 Long term (current) use of anticoagulants; Z79.891 Long term (current) use of opiate analgesic; Z68.25 Body mass index [BMI] 25.0-25.9, adult; Z85.51 Personal history of malignant neoplasm of bladder
CPT/HCPCS: 36415; 74177; 78278; 80048; 80053; 83735; 85014; 85018; 85027; 86850; 86900; 86901; 88305; 88342; 93970; 99212; A9270; A9560; C8929; G0378; G0379; G0463; J2405; J2470; J2704; J3475; J3480; J7040; J7120; Q9957; Q9967

== ENCOUNTER 2025-03-23 11:35 | Outpatient (NON) | payer MEDICARE, SELFPAY ==
--- OUTSIDE RECORDS SUMMARY | 2025-03-23 11:38 | XMS_ITS | Clinical Summary ---
Author Organization [facility] Address [address] [place] [address] Care Team Providers Care Ent Consultant Name Role Phone Unavailable Primary Care Provider Unavailabl e Allergies No known active allergies Medications acetaminophen (TYLENOL) 325 mg tablet Take 650 mg by mouth every 4 hours as needed for Pain. Active amLODIPine (NORVASC) 5 mg tablet Take 5 mg by mouth daily. Active oxyCODONE-aceta minophen (PERCOCET) 5-325 mg tablet Take 1 Tablet by mouth every 4 hours as needed for Pain. Active linaCLOtide (Linzess) 72 mcg Capsule capsule Take 72 mcg by mouth daily before breakfast. Active aluminum-magnes ium HYDROXIDE-simet hicone (MAALOX PLUS ES) 400-400-40 mg/5 mL suspension Take 15 mL by mouth every 6 hours as needed for Dyspepsia or Indigestion. Active artifi.tears,hy promellose,,PF, 1.7 % Drops with Applicator 1 Drop by Ophthalmic route every 6 hours as needed for Other (See Comment) (dry eyes). Active bisacodyL (DULCOLAX) 10 mg Suppository Insert 10 mg by rectum 1 time daily as needed for Constipation. Active bisacodyL (DULCOLAX) 5 mg Delayed Release tablet Take 10 mg by mouth 1 time daily as needed for Constipation. Active carbidopa-levod opa (PARCOPA) 25-100 mg Tablet, Rapid Dissolve Place 1 Tablet inside cheek 3 times daily. Active escitalopram oxalate (LEXAPRO) 20 mg tablet Take 20 mg by mouth daily. Active fluticasone propionate (FLONASE) 50 mcg/spray Geneva, Suspension nasal inhaler Administer 1 Geneva in each nostril daily. Active furosemide (LASIX) 40 mg tablet Take 40 mg by mouth daily. Active glycerin, adult, Suppository Insert 1 Suppository by rectum 2 times daily as needed for Constipation. Active Lidocaine 5 % Cream Apply to affected area 2 times daily as needed for Pain. Active lidocaine (LIDODERM) 5 % Adhesive Patch, Medicated Apply 1 Patch to affected area every 24 hours. Active morphine (MS CONTIN) 30 mg Controlled Release tablet Take 30 mg by mouth every 12 hours. Active naloxegoL (Movantik) 25 mg Tablet Take 25 mg by mouth daily before breakfast. Active naloxone (Narcan) 4 mg/spray Geneva, Non-Aerosol Administer 4 mg in one nostril (alternate nostril with each dose) 1 time daily as needed for Respiration. Push plunger to administer. Call 911. May repeat dose, every 2-3 minutes, if the person does not wake up or breathing is not improved. Active olopatadine HCl (OLOPATADINE OP) 1 Drop by Ophthalmic route daily. Right eye Active phenyleph-min oil-petrolatum (Preparation H) 0.25-14-74.9 % Ointment Insert by rectum 4 times daily as needed for Hemorrhoids. Active polyethylene glycol 3350 (MIRALAX) 17 gram/dose Powder Take 17 Grams by mouth daily. Dissolve in 8 ounces of fluid and drink entire liquid Active potassium CHLORIDE (K-DUR,KLOR-CON M20) 20 mEq Extended Release tablet Take 40 mEq by mouth daily. Active sennosides (SENOKOT) 8.6 mg tablet Take 8.6 mg by mouth 2 times daily. Active ALPRAZolam (XANAX) 0.5 mg tablet Take 0.5 mg by mouth daily. Active apixaban (ELIQUIS) 5 mg tablet Take 2 Tablets (10 mg) by mouth 2 times daily for 2 days. 8 Tablet 03/21/20 25 025 Active apixaban (ELIQUIS) 5 mg tablet Take 1 Tablet (5 mg) by mouth 2 times daily. Starting Saturday 03/2403/24/20 25 Active balsam luther-castor oiL (VENELEX) Ointment Apply to affected area 2 times daily. Apply to Coccyx, Gluteal, Left, Gluteal, Right, and Gluteal Cleft. Cleanse with normal saline or wound cleanser. Apply Venelex, may cover with foam dressing. Secure with tape or rolled gauze. Avoid tape on extremities. For suspected deep tissue injury, purple or maroon localized area of discolored intact skin, or blood-filled blister. 03/21/20 Active pantoprazole (PROTONIX) 40 mg Tablet, Delayed Release (E.C.) Take 1 Tablet (40 mg) by mouth 2 times daily. For at least 4 weeks 03/21/20 Active pantoprazole (PROTONIX) 40 mg Tablet, Delayed Release (E.C.) Take 1 Tablet (40 mg) by mouth 2 times daily. 03/21/20 25 025 Discontinued balsam luther-castor oiL (VENELEX) Ointment Apply to affected area 2 times daily. Apply to Coccyx, Gluteal, Left, Gluteal, Right, and Gluteal Cleft. Cleanse with normal saline or wound cleanser. Apply Venelex, may cover with foam dressing. Secure with tape or rolled gauze. Avoid tape on extremities. For suspected deep tissue injury, purple or maroon localized area of discolored intact skin, or blood-filled blister. 03/21/20 25 025 Discontinued apixaban (ELIQUIS) 5 mg tablet Take 2 Tablets (10 mg) by mouth 2 times daily for 2 days. 8 Tablet 11:10 AM VOLUNTEER SERVICES SPECIALIST 03/21/20 025 Discontinued apixaban (ELIQUIS) 5 mg tablet Take 1 Tablet (5 mg) by mouth 2 times daily. 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 10/2024 Long-term current use of benzodiazepine 03/16/20 Chronic atrial fibrillation 03/16/2025 Parkinsonism 03/16/2025 Chronic constipation 03/16/2025 Hypokalemia 03/16/2025 Acute pulmonary embolism without acute cor pulmo nale 03/13/2025 Acute deep vein thrombosis ( DVT) of calf muscle vein of left lower extremity 03/13/2025 Acute gastrointestinal hemorrhage 03/13/2025 Pulmonary embolus 03/13/2025 Encounters Date Type Department Care Team Description 03/20/2025 Travel 03/18/2025 External Device Data STL ABSTRACTION Provider, Abstract 03/18/2025 External Device Data STL ABSTRACTION Provider, Abstract 03/18/2025 External Device Data STL ABSTRACTION Provider, Abstract 03/13/2025 5:05 PM VOLUNTEER SERVICES SPECIALIST Anesthesia Event [facility] CV Operating Room [address] [place] [address] Lizandro Echavarria MD 03/13/2025 4:55 PM VOLUNTEER SERVICES SPECIALIST - 03/13/2025 6:09 PM VOLUNTEER SERVICES SPECIALIST Surgery [facility] CV Operating Room [address] [place] [address] Moiz Morris MD VENA CAVA FILTER INSERTION 03/13/2025 3:22 PM VOLUNTEER SERVICES SPECIALIST - 03/21/2025 4:17 PM VOLUNTEER SERVICES SPECIALIST Hospital Encounter [facility] Medicine [address] [place] [address] Med Nick MD Dmello, Dayton E, MD Araujo, Tiago, MD Pettis, Matthew, MD Acute pulmonary embolism without acute cor pulmonale (CMS/HCC) Discharge Disposition: Intermediate Care Facility from Last 3 Months Family History Medical History Relation Name Comments Breast Cancer Mother Relation Name Status Comments Mother Social History Tobacco Use Types Packs/Day Years Used Date Smoking Tobacco: Former Cigarettes Tobacco Cessation:Counseling Given: Not Answered Food Insecurity Answer Date Recorded Do you find you are eating l ess than you should because you can t pay for food? No 03/20/2025 Transportation Needs Answer Date Record ed Have you gone without health care because you didn t have a way to get there? Or worry about transportation for future doctor visits, pharmacy picking tech medication, etc.? No 2024 Housing Stability Answer Date Recorded Do you worry you won t have a steady place to sleep or struggle to pay rent or mortgage? No 03/20/2025 Utility Needs Answer Date Recorded Do you have difficulty payin g for utility costs (electric, water or gas bills)? No 03/20/2025 Medication Needs Answer Date Recorded Have you skipped taking medi cation due to cost or worry you can t afford new medications? No 03/20/2025 Feeling Safe Answer Date Recorded Are you in a relationship wi th someone who hurts you emotionally and/or physically? No 03/20/2025 Food Insecurity Answer Date Recorded Patient needs follow up regardin 03/20/2025 Transportation Needs Answer Date Record ed Patient needs follow up regardin 03/20/2025 Utility Needs Answer Date Recorded Patient needs follow up regardin 03/20/2025 Sex and Gender Information Value Date Recorded Sex Assigned at Not on file Legal Sex Male 9:40 AM VOLUNTEER SERVICES SPECIALIST Gender Identity Not on file Sexual Orientation Not on file Last Filed Vital Signs Vital Sign Reading Time Taken Comments Blood Pressure 100/64 03/21/2025 12:06 PM VOLUNTEER SERVICES SPECIALIST Pulse 69 03/21/2025 12:06 PM VOLUNTEER SERVICES SPECIALIST Temperature 37.4 C (99.3 F) 03/21/2025 12:06 PM VOLUNTEER SERVICES SPECIALIST Respiratory Rate 15 03/21/2025 12:06 PM VOLUNTEER SERVICES SPECIALIST Oxygen Saturation 99% 03/21/2025 12:06 PM VOLUNTEER SERVICES SPECIALIST Inhaled Oxygen Concentration - - Weight 68 kg (150 lb) 03/20/2025 11:22 AM VOLUNTEER SERVICES SPECIALIST Height 172.7 cm (5' 8) 03/20/2025 11:22 AM VOLUNTEER SERVICES SPECIALIST Body Mass Index 22.81 03/20/2025 11:22 AM VOLUNTEER SERVICES SPECIALIST Plan of Treatment Upcoming Encounters Date Type Department Care Team (Late st Contact Info) Description 03/24/2025 10:15 AM VOLUNTEER SERVICES SPECIALIST Office Visit [facility] Adoption Counselor [address] [place] [phone] Moiz Morris MD [address] [place] [address] [address] [place] [address] Health Maintenance Due Date Last Done Comments DTAP/TDAP/TD VACCINES (1 - Tdap) 01/20/1963 PNEUMOCOCCAL VACCINE 50+ YEARS (1 of 2 - PCV) 01/20/19 62 ZOSTER VACCINE (1 of 2) 01/20/1994 RSV VACCINE (60+ or ) (1 - 1-dose 75+ series) 01/20/2019 INFLUENZA VACCINE (#1) 2024 Medical Devices Implanted Type Area Business Development Coordinator Device Identifier Shelf Expiration Date Model / Serial / Lot Filter Vc Rupa Fem [id number] - [id number] Implanted:Q ty: 1 on 03/13/2025 by Moiz Morris MD at [facility] Cardiovascular Device N/A: Abdomen BARD EMILIANO VASC [id number] 12/06/2027 [id number] / / [id number] Procedures Procedure Name Priority Date/Time Associated Diagnosis Comments HEMOGLOBIN AND HEMATOCRIT Routine 03/21/2025 3:50 AM VOLUNTEER SERVICES SPECIALIST BASIC METABOLIC PANEL Routine 03/21/2025 3:50 AM VOLUNTEER SERVICES SPECIALIST OT EVAL AND TREAT Pending Discharge 03/20/2025 8:07 AM VOLUNTEER SERVICES SPECIALIST CBC WITHOUT DIFFERENTIAL Timed Study 03/20/2025 7:06 AM VOLUNTEER SERVICES SPECIALIST MAGNESIUM LEVEL Routine 03/20/2025 7:06 AM VOLUNTEER SERVICES SPECIALIST BASIC METABOLIC PANEL Routine 03/20/2025 7:06 AM VOLUNTEER SERVICES SPECIALIST TELEMETRY REPORT 03/19/2025 2:32 PM VOLUNTEER SERVICES SPECIALIST XR VIDEO SWALLOW W SPEECH Pending Discharge 03/19/2025 8:38 AM VOLUNTEER SERVICES SPECIALIST CBC WITHOUT DIFFERENTIAL Timed Study 03/19/2025 5:44 AM VOLUNTEER SERVICES SPECIALIST MAGNESIUM LEVEL Routine 03/19/2025 5:44 AM VOLUNTEER SERVICES SPECIALIST BASIC METABOLIC PANEL Routine 03/19/2025 5:44 AM VOLUNTEER SERVICES SPECIALIST PT EVAL AND TREAT Routine 03/18/2025 4:2 3 PM VOLUNTEER SERVICES SPECIALIST OT EVAL AND TREAT Routine 03/18/2025 4:2 3 PM VOLUNTEER SERVICES SPECIALIST UNFRACTIONATED HEPARIN ACTIVITY Routine 03/18/2025 9:03 AM VOLUNTEER SERVICES SPECIALIST CBC WITHOUT DIFFERENTIAL Timed Study 03/18/2025 9:03 AM VOLUNTEER SERVICES SPECIALIST PHOSPHORUS Routine 03/18/2025 9:03 AM VOLUNTEER SERVICES SPECIALIST MAGNESIUM LEVEL Routine 03/18/2025 9:03 AM VOLUNTEER SERVICES SPECIALIST BASIC METABOLIC PANEL Routine 03/18/2025 9:03 AM VOLUNTEER SERVICES SPECIALIST FEED CRUSHER EVALUATE AND TREAT Routine 03/17/2025 5:00 PM VOLUNTEER SERVICES SPECIALIST UNFRACTIONATED HEPARIN ACTIVITY Routine 03/17/2025 7:17 AM VOLUNTEER SERVICES SPECIALIST CBC WITHOUT DIFFERENTIAL Timed Study 03/17/2025 7:17 AM VOLUNTEER SERVICES SPECIALIST PHOSPHORUS Routine 03/17/2025 7:17 AM VOLUNTEER SERVICES SPECIALIST MAGNESIUM LEVEL Routine 03/17/2025 7:17 AM VOLUNTEER SERVICES SPECIALIST BASIC METABOLIC PANEL Routine 03/17/2025 7:17 AM VOLUNTEER SERVICES SPECIALIST UNFRACTIONATED HEPARIN ACTIVITY Routine 03/16/2025 5:55 AM VOLUNTEER SERVICES SPECIALIST CBC WITHOUT DIFFERENTIAL Timed Study 03/16/2025 5:55 AM VOLUNTEER SERVICES SPECIALIST PHOSPHORUS Routine 03/16/2025 5:55 AM VOLUNTEER SERVICES SPECIALIST MAGNESIUM LEVEL Routine 03/16/2025 5:55 AM VOLUNTEER SERVICES SPECIALIST BASIC METABOLIC PANEL Routine 03/16/2025 5:55 AM VOLUNTEER SERVICES SPECIALIST UNFRACTIONATED HEPARIN ACTIVITY Stat 03/15/2025 8:20 PM VOLUNTEER SERVICES SPECIALIST CBC WITHOUT DIFFERENTIAL Timed Study 03/15/2025 8:20 PM VOLUNTEER SERVICES SPECIALIST UNFRACTIONATED HEPARIN ACTIVITY Timed Study 03/15/2025 5:04 AM VOLUNTEER SERVICES SPECIALIST PHOSPHORUS Routine 03/15/2025 5:04 AM VOLUNTEER SERVICES SPECIALIST MAGNESIUM LEVEL Routine 03/15/2025 5:04 AM VOLUNTEER SERVICES SPECIALIST CBC WITHOUT DIFFERENTIAL Routine 03/15/2025 5:04 AM VOLUNTEER SERVICES SPECIALIST BASIC METABOLIC PANEL Routine 03/15/2025 5:04 AM VOLUNTEER SERVICES SPECIALIST UNFRACTIONATED HEPARIN ACTIVITY Timed Study 03/14/2025 11:04 PM VOLUNTEER SERVICES SPECIALIST UNFRACTIONATED HEPARIN ACTIVITY Timed Study 03/14/2025 3:16 PM VOLUNTEER SERVICES SPECIALIST VERIFICATION BLOOD GROUP Stat 03/14/2025 12:17 PM VOLUNTEER SERVICES SPECIALIST Encounter for blood typing TYPE AND SCREEN Timed Study 03/14/2025 11:12 AM VOLUNTEER SERVICES SPECIALIST PTT Routine 03/14/2025 11:12 AM VOLUNTEER SERVICES SPECIALIST CBC WITHOUT DIFFERENTIAL Routine 03/14/2025 11:12 AM VOLUNTEER SERVICES SPECIALIST XR CHEST PA OR AP 1 VW Routine 03/14/2025 7:46 AM VOLUNTEER SERVICES SPECIALIST ECHOCARDIOGRAM W/ CONTRAST AGENT Routine 03/14/2025 7:16 AM VOLUNTEER SERVICES SPECIALIST PHOSPHORUS Routine 03/14/2025 4:39 AM VOLUNTEER SERVICES SPECIALIST MAGNESIUM LEVEL Routine 03/14/2025 4:39 AM VOLUNTEER SERVICES SPECIALIST CBC WITHOUT DIFFERENTIAL Routine 03/14/2025 4:39 AM VOLUNTEER SERVICES SPECIALIST BASIC METABOLIC PANEL Routine 03/14/2025 4:39 AM VOLUNTEER SERVICES SPECIALIST POC GLUCOSE Routine 03/13/2025 11:06 PM VOLUNTEER SERVICES SPECIALIST PROTIME-INR Routine 03/13/2025 7:46 PM VOLUNTEER SERVICES SPECIALIST IR IVC FILTER Routine 03/13/2025 5:37 PM VOLUNTEER SERVICES SPECIALIST AK INS INTRVAS VC FILTR W/WO VAS ACS VSL SELXN RS&I 03/13/2025 4:55 PM VOLUNTEER SERVICES SPECIALIST TROPONIN Routine 03/13/2025 4:01 PM VOLUNTEER SERVICES SPECIALIST BRAIN NATRIURETIC PEPTIDE, BNP OR PROBNP Routine 03/13/2025 4:01 PM VOLUNTEER SERVICES SPECIALIST CBC WITH DIFFERENTIAL Routine 03/13/2025 4:01 PM VOLUNTEER SERVICES SPECIALIST COMPREHENSIVE METABOLIC PANEL Routine 03/13/2025 4:01 PM VOLUNTEER SERVICES SPECIALIST PT EVAL AND TREAT Routine 03/13/2025 3:4 1 PM VOLUNTEER SERVICES SPECIALIST OT EVAL AND TREAT Routine 03/13/2025 3:4 1 PM VOLUNTEER SERVICES SPECIALIST from Last 3 Months Results * (ABNORMAL) HEMOGLOBIN AND HEMATOCRIT (03/21/2025 3:50 AM VOLUNTEER SERVICES SPECIALIST) HEMOGLOBIN 10.0(L) 13.6 - 16.5 g/dL 03/21/2025 5:46 AM VOLUNTEER SERVICES SPECIALIST [facility] HEMATOCRIT 31.8(L) 40.0 - 48.0 % 03/21/2025 5:46 AM VOLUNTEER SERVICES SPECIALIST [facility] Blood Venipuncture / Unknown 03/21/2025 3:50 AM VOLUNTEER SERVICES SPECIALIST 03/21/2025 5:17 AM VOLUNTEER SERVICES SPECIALIST us Berta Hurtado HAZARDOUS MATERIAL SPECIALIST HEMATOLOGY ORDERABLES Amara pagan Result [facility] A[facility] [employer] [employer] SERVICES [facility]# [id number] [address] [place] [address] * (ABNORMAL) BASIC METABOLIC PANEL (03/21/2025 3:50 AM VOLUNTEER SERVICES SPECIALIST) Only the most recent of8 resultswithin the time period is included. SODIUM 137 136 - 145 mmol/L 03/21/2025 6:10 AM VOLUNTEER SERVICES SPECIALIST [facility] - [facility] POTASSIUM 4.1 3.5 - 5.0 mmol/L 03/21/2025 6:10 AM VOLUNTEER SERVICES SPECIALIST [facility] - [facility] CHLORIDE 103 98 - 107 mmol/L 03/21/2025 6:10 AM VOLUNTEER SERVICES SPECIALIST [facility] - [facility] CO2 25 22 - 29 mmol/L 03/21/2025 6:10 AM [facility] CALCIUM 8.2(L) 8.6 - 10.2 mg/dL 03/21/2025 6:10 AM [facility] BUN 18 8 - 23 mg/dL 03/21/2025 6:10 AM [facility] CREATININE 1.13 0.67 - 1.17 mg/dL 03/21/2025 6:10 AM [facility] Comment:The GFR result is no t clinically significant on patients <18 or >70 years of age. GLUCOSE 87 74 - 99 mg/dL 03/21/2025 6:10 AM [facility] GFR >60 mL/min/1.7 3 sq meter 03/21/2025 6:10 AM [facility] Comment:eGFR calculated with 2020 CKD-EPI equation. Vegetarian diet, extremely high or low muscle mass, and may affect results. Cystatin C with Glomerular Filtration Rate is a suitable alternative for these patients. ANION GAP 9 8 - 16 mmol/L 03/21/2025 6:10 AM [facility] Blood Venipuncture / Unknown 03/21/2025 3:50 AM VOLUNTEER SERVICES SPECIALIST 03/21/2025 5:16 AM [facility] Deion Pardo MD CHEMISTRY ORDERABLES Final Re sult [facility]# [id number] [address] [place] [address] [place] [address] * (ABNORMAL) CBC WITHOUT DIFFERENTIAL (03/20/2025 7:06 AM VOLUNTEER SERVICES SPECIALIST) Only the most recent of9 resultswithin the time period is included. WBC 11.5(H) 4.0 - 9.8 K/uL 03/20/2025 7:34 AM [facility] RBC 3.02(L) 4.50 - 5.40 M/uL 03/20/2025 7:34 AM [facility] HEMOGLOBIN 9.4(L) 13.6 - 16.5 g/dL 03/20/2025 7:34 AM [facility]ORAT[facility] HEMATOCRIT 29.0(L) 40.0 - 48.0 % 03/20/2025 7:34 AM [facility] MCV 96.0 82.0 - 99.0 fL 03/20/2025 7:34 AM [facility] MCH 31.1 27.2 - 32.6 pg 03/20/2025 7:34 AM [facility] MCHC 32.4 31.5 - 35.5 g/dL 03/20/2025 7:34 AM [facility] PLATELETS 205 140 - 350 K/uL 03/20/2025 7:34 AM [facility] [employer] - . [facility] MPV 11.1 9.3 - 12.4 fL 03/20/2025 7:34 AM [facility] [employer] RDW 14.1 11.5 - 14.5 % 03/20/2025 7:34 AM [facility] [employer] [facility] RDW-STDEV 49.5(H) 37.1 - 48.7 fL 03/20/2025 7:34 AM [facility] [employer] Blood Venipuncture / Unknown 03/20/2025 7:06 AM VOLUNTEER SERVICES SPECIALIST 03/20/2025 7:29 AM VOLUNTEER SERVICES SPECIALIST Deion Pardo MD HEMATOLOGY ORDERABLES Final R esult [facility] [employer] [facility]# [id number] [address] [place] [address] * MAGNESIUM LEVEL (03/20/2025 7:06 AM VOLUNTEER SERVICES SPECIALIST) Only the most recent of7 resultswithin the time period is included. MAGNESIUM 1.7 1.6 - 2.4 mg/dL 03/20/2025 8:06 AM [facility] [employer] [employer] Blood Venipuncture / Unknown 03/20/2025 7:06 AM VOLUNTEER SERVICES SPECIALIST 03/20/2025 7:29 AM VOLUNTEER SERVICES SPECIALIST Deion Pardo MD CHEMISTRY ORDERABLES Final Re sult [facility]ORATORY [facility]# [id number] [address] [place] [place] [address] * TELEMETRY REPORT (03/19/2025 2:32 PM VOLUNTEER SERVICES SPECIALIST) Provider Scanning ECG ORDERABLES Final Result * XR VIDEO SWALLOW W SPEECH (03/19/2025 8:38 AM VOLUNTEER SERVICES SPECIALIST) Anatomical Region Laterality Modality Chest Computed Radiogr aphy 03/19/2025 8:40 AM VOLUNTEER SERVICES SPECIALIST Impressions 03/19/2025 8:47 AM VOLUNTEER SERVICES SPECIALIST IMPRESSION: Fluoroscopy was provided for the speech pathologist to perform a video recorded swallowing function study. Please see dedicated speech pathology report for findings and recommendations. FLUOROSCOPY TIME IN MINUTES: 2.1. DICTATION LOCATION: Location 1 - [facility] Narrative 03/19/2025 8:47 AM VOLUNTEER SERVICES SPECIALIST XR VIDEO SWALLOW W SPEECH DATE: 03/19/2025 8:38 AM HISTORY: Difficulty Swallowing. Encounter for blood typing COMPARISON: None.. REFERENCE AIR KERMA DOSE: 14.2 mGy. NUMBER OF FLUOROSCOPIC IMAGES: 9 FINDINGS: Fluoroscopy was provided for the speech pathologist to perform a video recorded swallowing function study. The patient was given a variety of consistencies of barium substances to orally consume and the study was recorded for careful review and full report by the speech pathologist. INCIDENTAL FINDINGS: None. Procedure Note Eneida Mina MD - 03/19/2025 XR VIDEO SWALLOW W SPEECH DATE: 03/19/2025 8:38 AM HISTORY: Difficulty Swallowing. Encounter for blood typing COMPARISON: None.. REFERENCE AIR KERMA DOSE: 14.2 mGy. NUMBER OF FLUOROSCOPIC IMAGES: 9 FINDINGS: Fluoroscopy was provided for the speech pathologist to perform a video recorded swallowing function study. The patient was given a variety of consistencies of barium substances to orally consume and the study was recorded for careful review and full report by the speech pathologist. INCIDENTAL FINDINGS: None. IMPRESSION: Fluoroscopy was provided for the speech pathologist to perform a video recorded swallowing function study. Please see dedicated speech pathology report for findings and recommendations. FLUOROSCOPY TIME IN MINUTES: 2.1. DICTATION LOCATION: Location 1 - [facility] Lizandro Benavides MD DIAGNOSTIC IMAGING ORDERABLES Final Result * (ABNORMAL) UNFRACTIONATED HEPARIN MONITORING (03/18/2025 9:03 AM VOLUNTEER SERVICES SPECIALIST) Only the most recent of7 resultswithin the time period is included. ANTI-XA UNFRAC HEP >1.10(HH) See Interpreta tion. IU/mL 03/18/2025 10:45 AM VOLUNTEER SERVICES SPECIALIST [facility] Blood Venipuncture / Unknown 03/18/2025 9:03 AM VOLUNTEER SERVICES SPECIALIST 03/18/2025 9:34 AM VOLUNTEER SERVICES SPECIALIST Narrative [facility] - 03/18/2025 10:45 AM VOLUNTEER SERVICES SPECIALIST Unfractionated Heparin Therapeutic Range: 0.30-0.70 IU/ml Refer to pharmacy adult heparin protocol for further recommendation. The reference range for this test is specific to the anticoagulant and is not appropriate for monitoring patients on a DOAC protocol. Result [facility] Suri [place] HEMATOLOGY ORDERABLES Final Res ult Performing Organization Address [facility] Co de Phone Number [facility]# [id number] [address] [address] * PHOSPHORUS (03/18/2025 9:03 AM VOLUNTEER SERVICES SPECIALIST) Only the most recent of5 resultswithin the time period is included. PHOSPHORUS 3.1 2.5 - 4.5 mg/dL 03/18/2025 10:08 AM VOLUNTEER SERVICES SPECIALIST [facility] Blood Venipuncture / Unknown 03/18/2025 9:03 AM VOLUNTEER SERVICES SPECIALIST 03/18/2025 9:33 AM VOLUNTEER SERVICES SPECIALIST Deion Pardo MD CHEMISTRY ORDERABLES Final Re sult Performing Organization Address City/[facility]/ZIP Co de Phone Number [facility] [employer] [id number] [address] [place] [address] * VERIFICATION BLOOD GROUP (03/14/2025 12:17 PM VOLUNTEER SERVICES SPECIALIST) ABO GROUP O 03/14/2025 1:41 PM VOLUNTEER SERVICES SPECIALIST [facility] -- [facility] RH (D) TYPE Negative 03/14/2025 1:41 PM VOLUNTEER SERVICES SPECIALIST [facility] -- [facility] Blood Venipuncture / Unknown 03/14/2025 12:17 PM VOLUNTEER SERVICES SPECIALIST 03/14/2025 12:26 PM VOLUNTEER SERVICES SPECIALIST Leonila Marin MD BLOOD BANK ORDERABLES Final Result Performing Organization Address [facility] Hospital/[facility] de Phone Number [facility] Avanash[facility] Silk [facility]# [id number] [address] [place] [address] * (ABNORMAL) PTT (03/14/2025 11:12 AM VOLUNTEER SERVICES SPECIALIST) PTT 37.5(H) 24.4 - 36.4 seconds 03/14/2025 11:47 AM VOLUNTEER SERVICES SPECIALIST [facility] Comment: PTT Therapeutic Range: Heparin Level PTT (seconds) <0.10 units/mL <55.8 0.10 - 0.30 units/mL 55.8 - 74.3 0.30 - 0.70 units/mL* 74.3 - 111.2* 0.70 - 1.00 units/mL 111.2 - 138.9 *corresponds to therapeutic range for unfractionated heparin Blood Venipuncture / Unknown 03/14/2025 11:12 AM VOLUNTEER SERVICES SPECIALIST 03/14/2025 11:21 AM VOLUNTEER SERVICES SPECIALIST Deion Pardo MD HEMATOLOGY ORDERABLES Final R esult Performing Organization Address [facility] Co de Phone Number [facility] [facility]k [facility] [id number] [address] [place] [address] * TYPE AND SCREEN (03/14/2025 11:12 AM VOLUNTEER SERVICES SPECIALIST) ABO GROUP O 03/14/2025 1:02 PM VOLUNTEER SERVICES SPECIALIST [facility] RH (D) TYPE Negative 03/14/2025 1:02 PM VOLUNTEER SERVICES SPECIALIST [facility] ANTIBODY SCREEN Negative 03/14/2025 1:02 PM VOLUNTEER SERVICES SPECIALIST [facility] Blood Venipuncture / Unknown 03/14/2025 11:12 AM VOLUNTEER SERVICES SPECIALIST 03/14/2025 11:21 AM VOLUNTEER SERVICES SPECIALIST Deion Pardo MD BLOOD BANK ORDERABLES Edited Result - Final [facility] CLIA# [id number] [address] [place] [address] * XR CHEST PA OR AP 1 VW (03/14/2025 7:46 AM VOLUNTEER SERVICES SPECIALIST) Anatomical Region Laterality Modality Chest Computed Radiogr aphy 03/14/2025 7:46 AM VOLUNTEER SERVICES SPECIALIST Impressions 03/14/2025 8:23 AM VOLUNTEER SERVICES SPECIALIST IMPRESSION: Mild pulmonary venous congestion. Elevation of the right hemidiaphragm with right basilar atelectasis. DICTATION LOCATION: Location 4 Narrative 03/14/2025 8:23 AM VOLUNTEER SERVICES SPECIALIST CHEST, SINGLE VIEW DATE: 03/14/2025 7:46 AM HISTORY: Pulmonary embolism. COMPARISON: None. FINDINGS: AP portable semiupright view of the chest demonstrates the heart to be within normal limits in size. Mild prominence of the central pulmonary vasculature is noted suggesting mild pulmonary venous congestion. Mild perihilar interstitial prominence is noted more pronounced on the left likely representing interstitial edema. Moderate elevation of the right hemidiaphragm is noted with right basilar atelectasis. Colonic interposition beneath the right hemidiaphragm is seen. No effusions or pneumothoraces are evident. INCIDENTAL FINDINGS: None. Procedure Note Louise Arora MD - 03/14/2025 CHEST, SINGLE VIEW DATE: 03/14/2025 7:46 AM HISTORY: Pulmonary embolism. COMPARISON: None. FINDINGS: AP portable semiupright view of the chest demonstrates the heart to be within normal limits in size. Mild prominence of the central pulmonary vasculature is noted suggesting mild pulmonary venous congestion. Mild perihilar interstitial prominence is noted more pronounced on the left likely representing interstitial edema. Moderate elevation of the right hemidiaphragm is noted with right basilar atelectasis. Colonic interposition beneath the right hemidiaphragm is seen. No effusions or pneumothoraces are evident. INCIDENTAL FINDINGS: None. IMPRESSION: Mild pulmonary venous congestion. Elevation of the right hemidiaphragm with right basilar atelectasis. DICTATION LOCATION: Location 4 Deion Pardo MD DIAGNOSTIC IMAGING ORDERABLES Final Result * ECHOCARDIOGRAM W/ CONTRAST AGENT (03/14/2025 7:16 AM VOLUNTEER SERVICES SPECIALIST) EJECTION FRACTION 65 INTERFACE SYSTEM 03/14/2025 5:53 AM VOLUNTEER SERVICES SPECIALIST Narrative INTERFACE SYSTEM - 03/14/2025 8:31 AM [place]TEER [place] [address] [email or web address] Transthoracic Echocardiogram Patient: Emir Sanchez Study ID: ECHO COMPLETE - Gender: M : 1945 Age: 80 Race: Height Study Date: 03/14/2025 Weight: 77.6kg Access. #: [id number] BP: *Referring Physician:* Deion Pardo *Ordering Physician:* Deion Pardo calender worker helper: Nurse: Indications: PE. STUDY CONCLUSIONS: SUMMARY: - Left ventricle: The cavity size was normal. Wall thickness was normal. Global systolic function is normal. The estimated ejection fraction is 60-65%. For Epic reporting: the left ventricular ejection fraction is 65% . The study was not technically sufficient to allow evaluation of LV diastolic dysfunction due to atrial fibrillation. - Mitral valve: Mild regurgitation. - Left atrium: The atrium is normal in size. - Right ventricle: The cavity size is normal. Systolic function is normal. - Tricuspid valve: Mild regurgitation. - Pulmonary arteries: The peak systolic pressure is at least 38mm Hg. IVC not well visualized. - No significant valvular disease. Cardiac Anatomy: LEFT VENTRICLE: The cavity size was normal. Wall thickness was normal. Global systolic function is normal. The estimated ejection fraction is 60-65%. For Epic reporting: the left ventricular ejection fraction is 65% . The study was not technically sufficient to allow evaluation of LV diastolic dysfunction due to atrial fibrillation. AORTIC VALVE: Structurally normal valve. Trileaflet. No significant regurgitation. The mean systolic gradient is 4mm Hg. The peak systolic gradient is 9mm Hg. The LVOT to aortic valve VTI ratio is 0.88. The valve area is 2.8cm^2. The ratio of LVOT to aortic valve peak velocity is 0.73. AORTA: Aortic root: The root is normal-sized. MITRAL VALVE: Structurally normal valve. Mild regurgitation. The mean diastolic gradient is 2mm Hg. The peak diastolic gradient is 8mm Hg. LEFT ATRIUM: The atrium is normal in size. RIGHT VENTRICLE: The cavity size is normal. Systolic function is normal. PULMONIC VALVE: Poorly visualized. No significant regurgitation. TRICUSPID VALVE: Structurally normal valve. Mild regurgitation. RIGHT ATRIUM: The atrium was normal in size. SYSTEMIC VEINS: Inferior vena cava: The IVC is Not well visualized.. PERICARDIUM: There is no pericardial effusion. Measurements Left ventricle Value Ref IVS, ED, LAX (N) 1.0 cm 0.6 - 1.0 SILVERIO, LAX (L) 3.0 cm 4.2 - 5.8 SILVERIO, LAX chord (N) 4.7 cm 4.2 - 5.8 ESD, LAX chord (N) 3.0 cm 2.5 - 4.0 FS, LAX chord (N) 35 % 25 - 43 IVS, ED (N) 1.0 cm 0.6 - 1.0 PW, ED (H) 1.2 cm 0.6 - 1.0 EDV, 2-p (N) 127 ml 62 - 150 ESV, 2-p (N) 48 ml 21 - 61 EF, 2-p (N) 62 % 52 - 72 SV, 2-p 79 ml --------- LVOT Value Ref Diam, S 2.0 cm --------- Area 3.1 cm^2 --------- Peak lon, S 1.07 m/sec --------- VTI, S 22.3 cm --------- Right ventricle Value Ref SILVERIO minor ax, A4C base (N) 4.0 cm 2.5 - 4.1 SILVERIO minor ax, A4C mid (N) 2.9 cm 1.9 - 3.5 TAPSE, MM (N) 2.0 cm >=1.7 Pressure, S 43 mm Hg --------- S' lateral (N) 11.6 cm/sec >=9.5 Left atrium Value Ref AP dim, ES (N) 3.9 cm 3.0 - 4.0 SI dim, A4C 5.8 cm --------- Area ES, A4C (H) 25 cm^2 <=20 SI dim, A2C 5.5 cm --------- SI dim, shorter 5.5 cm --------- Vol, ES, 1-p A2C (H) 61 ml 18 - 58 Vol, ES, 2-p 73 ml --------- LA/Ao root ratio 1.05 --------- Right atrium Value Ref SI dim, ES, A4C (H) 6.4 cm 3.4 - 5.3 Area, ES, A4C (H) 21 cm^2 10 - 18 Vol, ES, 1-p A4C 55 ml --------- Aortic valve Value Ref Peak v, S 1.5 m/sec --------- Mean v, S 0.94 m/sec --------- VTI, S 25.4 cm --------- Mean grad, S 4 mm Hg --------- Peak grad, S 9 mm Hg --------- LVOT/AV, VTI ratio 0.88 --------- PAULA, VTI 2.8 cm^2 --------- LVOT/AV, Vpeak ratio 0.73 --------- PAULA, Vmax 2.3 cm^2 --------- Mitral valve Value Ref Mean v, D 0.62 m/sec --------- Peak E 1.06 m/sec --------- Decel time 123 ms --------- PHT 40 ms --------- Mean grad, D 2 mm Hg --------- Peak grad, D 8 mm Hg --------- A-VTI 26.4 cm --------- MVA, PHT 5.5 cm^2 --------- Pulmonic valve Value Ref Peak v, S 1.12 m/sec --------- Peak grad, S 5 mm Hg --------- Tricuspid valve Value Ref TR peak v (H) 3.1 m/sec <=2.8 Peak RV-RA grad, S 38 mm Hg --------- Aortic root Value Ref Root diam, 3.7 cm --------- Ascending aorta Value Ref AAo AP diam, S 3.9 cm --------- Pulmonary artery Value Ref Pressure, S 38 mm Hg --------- Systemic veins Value Ref Estimated RA pressure 5 mm Hg --------- Legend: (L) and (H) luís values outside specified reference range. (N) young values inside specified reference range. Procedure data: Procedure information: A transthoracic echocardiogram was performed. Scanning was performed from the parasternal, apical, and subcostal acoustic windows. Intravenous contrast (Definity) was administered. Transthoracic echocardiogram. Complete 2D, complete spectral Doppler, and color Doppler. Birthdate: Patient birthdate: 1945. Age: Patient is 80year(s) old. Sex: gender: male. Weight: 77.6kg. 171lb. Study date: Study date: 03/14/2025. Study time: 05:53 AM. Prepared and Electronically Authenticated Julio César Gurrola [id number] Procedure Note Julio César Gurrola MD - 03/14/[address] [address] [email or web address] Transthoracic Echocardiogram Patient: Emir Sanchez Study ID: ECHO COMPLETE - Gender: M : 1945 Age: 80 Race: Height Study Date: 03/14/2025 Weight: 77.6kg Access. #: [id number] BP: *Referring Physician:* Deion Pardo *Ordering Physician:* Deion Pardo calender worker helper: Nurse: Indications: PE. STUDY CONCLUSIONS: SUMMARY: - Left ventricle: The cavity size was normal. Wall thickness was normal. Global systolic function is normal. The estimated ejection fraction is 60-65%. For Epic reporting: the left ventricular ejection fraction is65% . The study was not technically sufficient to allow evaluation of LVdiastolic dysfunction due to atrial fibrillation. - Mitral valve: Mild regurgitation. - Left atrium: The atrium is normal in size. - Right ventricle: The cavity size is normal. Systolic function isnormal. - Tricuspid valve: Mild regurgitation. - Pulmonary arteries: The peak systolic pressure is at least 38mm Hg. IVCnot well visualized. - No significant valvular disease. Cardiac Anatomy: LEFT VENTRICLE: The cavity size was normal. Wall thickness was normal.Global systolic function is normal. The estimated ejection fraction is 60-65%.For Epic reporting: the left ventricular ejection fraction is 65% . The studywas not technically sufficient to allow evaluation of LV diastolic dysfunctiondue to atrial fibrillation. AORTIC VALVE: Structurally normal valve. Trileaflet. No significant regurgitation. The mean systolic gradient is 4mm Hg. The peak systolic gradient is 9mm Hg. The LVOT to aortic valve VTI ratio is 0.88. The valvearea is 2.8cm^2. The ratio of LVOT to aortic valve peak velocity is 0.73. AORTA: Aortic root: The root is normal-sized. MITRAL VALVE: Structurally normal valve. Mild regurgitation. Themean diastolic gradient is 2mm Hg. The peak diastolic gradient is 8mm Hg. LEFT ATRIUM: The atrium is normal in size. RIGHT VENTRICLE: The cavity size is normal. Systolic function isnormal. PULMONIC VALVE: Poorly visualized. No significant regurgitation. TRICUSPID VALVE: Structurally normal valve. Mild regurgitation. RIGHT ATRIUM: The atrium was normal in size. SYSTEMIC VEINS: Inferior vena cava: The IVC is Not well visualized.. PERICARDIUM: There is no pericardial effusion. Measurements Left ventricle Value Ref IVS, ED, LAX (N) 1.0 cm 0.6 - 1.0 SILVERIO, LAX (L) 3.0 cm 4.2 - 5.8 SILVERIO, LAX chord (N) 4.7 cm 4.2 - 5.8 ESD, LAX chord (N) 3.0 cm 2.5 - 4.0 FS, LAX chord (N) 35 % 25 - 43 IVS, ED (N) 1.0 cm 0.6 - 1.0 PW, ED (H) 1.2 cm 0.6 - 1.0 EDV, 2-p (N) 127 ml 62 - 150 ESV, 2-p (N) 48 ml 21 - 61 EF, 2-p (N) 62 % 52 - 72 SV, 2-p 79 ml --------- LVOT Value Ref Diam, S 2.0 cm --------- Area 3.1 cm^2 --------- Peak lon, S 1.07 m/sec --------- VTI, S 22.3 cm --------- Right ventricle Value Ref SILVERIO minor ax, A4C base (N) 4.0 cm 2.5 - 4.1 SILVERIO minor ax, A4C mid (N) 2.9 cm 1.9 - 3.5 TAPSE, MM (N) 2.0 cm >=1.7 Pressure, S 43 mm Hg --------- S' lateral (N) 11.6 cm/sec >=9.5 Left atrium Value Ref AP dim, ES (N) 3.9 cm 3.0 - 4.0 SI dim, A4C 5.8 cm --------- Area ES, A4C (H) 25 cm^2 <=20 SI dim, A2C 5.5 cm --------- SI dim, shorter 5.5 cm --------- Vol, ES, 1-p A2C (H) 61 ml 18 - 58 Vol, ES, 2-p 73 ml --------- LA/Ao root ratio 1.05 --------- Right atrium Value Ref SI dim, ES, A4C (H) 6.4 cm 3.4 - 5.3 Area, ES, A4C (H) 21 cm^2 10 - 18 Vol, ES, 1-p A4C 55 ml --------- Aortic valve Value Ref Peak v, S 1.5 m/sec --------- Mean v, S 0.94 m/sec --------- VTI, S 25.4 cm --------- Mean grad, S 4 mm Hg --------- Peak grad, S 9 mm Hg --------- LVOT/AV, VTI ratio 0.88 --------- PAULA, VTI 2.8 cm^2 --------- LVOT/AV, Vpeak ratio 0.73 --------- PAULA, Vmax 2.3 cm^2 --------- Mitral valve Value Ref Mean v, D 0.62 m/sec --------- Peak E 1.06 m/sec --------- Decel time 123 ms --------- PHT 40 ms --------- Mean grad, D 2 mm Hg --------- Peak grad, D 8 mm Hg --------- A-VTI 26.4 cm --------- MVA, PHT 5.5 cm^2 --------- Pulmonic valve Value Ref Peak v, S 1.12 m/sec --------- Peak grad, S 5 mm Hg --------- Tricuspid valve Value Ref TR peak v (H) 3.1 m/sec <=2.8 Peak RV-RA grad, S 38 mm Hg --------- Aortic root Value Ref Root diam, 3.7 cm --------- Ascending aorta Value Ref AAo AP diam, S 3.9 cm --------- Pulmonary artery Value Ref Pressure, S 38 mm Hg --------- Systemic veins Value Ref Estimated RA pressure 5 mm Hg --------- Legend: (L) and (H) luís values outside specified reference range. (N) young values inside specified reference range. Procedure data: Procedure information: A transthoracic echocardiogram was performed.Scanning was performed from the parasternal, apical, and subcostal acousticwindows. Intravenous contrast (Definity) was administered. Transthoracic echocardiogram. Complete 2D, complete spectral Doppler, and colorDoppler. Birthdate: Patient birthdate: 1945. Age: Patient is 80year(s)old. Sex: gender: male. Weight: 77.6kg. 171lb. Study date: Studydate: 03/14/2025. Study time: 05:53 AM. Prepared and Electronically Authenticated LauraJulio César mitchell [id number] Deion Pardo MD US ORDERABLES Final Result Performing Organization Address City/[facility] Co de Phone Number INTERFACE SYSTEM Refer to clinic/hospital department * POC GLUCOSE (03/13/2025 11:06 PM VOLUNTEER SERVICES SPECIALIST) GLUCOSE POC 99 74 - 99 mg/dL 03/13/2025 11:06 PM VOLUNTEER SERVICES SPECIALIST [facility] SPECIMEN SOURCE, GLUCOSE POC Whole Blood 03/13/2025 11:06 PM VOLUNTEER SERVICES SPECIALIST [facility] Blood, whole 03/13/2025 11:0 6 PM VOLUNTEER SERVICES SPECIALIST 03/13/2025 11:13 PM VOLUNTEER SERVICES SPECIALIST Deion Pardo MD POINT OF CARE TESTING Final R esult Performing Organization Address [facility] Co de Phone Number [facility] [employer] [employer] [facility]# [id number] [address] [place] [address] * (ABNORMAL) PROTIME-INR (03/13/2025 7:46 PM VOLUNTEER SERVICES SPECIALIST) PROTIME 15.8(H) 12.7 - 15.1 Seconds 03/13/2025 8:03 PM VOLUNTEER SERVICES SPECIALIST [facility] INR 1.3(H) 0.9 - 1.1 03/13/2025 8:03 PM VOLUNTEER SERVICES SPECIALIST [facility] Blood Venipuncture / Unknown 03/13/2025 7:46 PM VOLUNTEER SERVICES SPECIALIST 03/13/2025 7:49 PM VOLUNTEER SERVICES SPECIALIST Narrative [facility] - 03/13/2025 8:03 PM VOLUNTEER SERVICES SPECIALIST INR Therapeutic Range: Adult: 2.0 - 3.0 for pulmonary embolism or prophylaxis against venous thrombosis or systemic embolization. 2.0 - 3.0 for patients with tissue heart valves. 2.5 - 3.5 for patients with mechanical heart valves or post UT. Pediatric (12 years and under): 1.5 - 3.0 Although the target range in children is not well established, INR values of 1.5 - 3.0 are recommended for most patients. Higher values have been used in children with prosthetic cardiac valves and hereditary clotting disorders. (<3 days) therapeutic ranges have not been established. Deion Pardo MD HEMATOLOGY ORDERABLES Final R esult [facility]# [id number] [address] [facility] [address] [facility] [address] [place] [address] * IR IVC FILTER (03/13/2025 5:37 PM VOLUNTEER SERVICES SPECIALIST) Narrative 03/13/2025 5:38 PM VOLUNTEER SERVICES SPECIALIST Order information only. Exam was auto-finalized. Moiz Morris MD IR ORDERABLES Final Result * (ABNORMAL) CBC WITH DIFFERENTIAL (03/13/2025 4:01 PM VOLUNTEER SERVICES SPECIALIST) WBC 7.8 4.0 - 9.8 K/uL 03/13/2025 4:22 PM [facility] RBC 3.31(L) 4.50 - 5.40 M/uL 03/13/2025 4:22 PM VOLUNTEER SERVICES SPECIALIST [facility] HEMOGLOBIN 10.2(L) 13.6 - 16.5 g/dL 03/13/2025 4:22 PM VOLUNTEER SERVICES SPECIALIST [facility] HEMATOCRIT 30.3(L) 40.0 - 48.0 % 03/13/2025 4:22 PM VOLUNTEER SERVICES SPECIALIST [facility] MCV 91.5 82.0 - 99.0 fL 03/13/2025 4:22 PM VOLUNTEER SERVICES SPECIALIST [facility] MCH 30.8 27.2 - 32.6 pg 03/13/2025 4:22 PM VOLUNTEER SERVICES SPECIALIST [facility] MCHC 33.7 31.5 - 35.5 g/dL 03/13/2025 4:22 PM VOLUNTEER SERVICES SPECIALIST [facility] RDW 13.0 11.5 - 14.5 % 03/13/2025 4:22 PM VOLUNTEER SERVICES SPECIALIST [facility] RDW-STDEV 43.4 37.1 - 48.7 fL 03/13/2025 4:22 PM VOLUNTEER SERVICES SPECIALIST [facility] PLATELETS 155 140 - 350 K/uL 03/13/2025 4:22 PM VOLUNTEER SERVICES SPECIALIST [facility] MPV 11.3 9.3 - 12.4 fL 03/13/2025 4:22 PM VOLUNTEER SERVICES SPECIALIST [facility] NEUTROPHILS 72 % 03/13/2025 4:22 PM VOLUNTEER SERVICES SPECIALIST [facility] LYMPHOCYTES 13 % 03/13/2025 4:22 PM VOLUNTEER SERVICES SPECIALIST [facility] MONOCYTES 12 % 03/13/2025 4:22 PM VOLUNTEER SERVICES SPECIALIST [facility] EOSINOPHILS 2 % 03/13/2025 4:22 PM VOLUNTEER SERVICES SPECIALIST [facility] BASOPHILS 0 % 03/13/2025 4:22 PM VOLUNTEER SERVICES SPECIALIST [facility] IMMATURE GRANULOCYTES 0 % 03/13/2025 4:22 PM VOLUNTEER SERVICES SPECIALIST [facility] NEUTROPHIL ABSOLUTE 5.66 1.90 - 7.00 K/uL 03/13/2025 4:22 PM VOLUNTEER SERVICES SPECIALIST [facility] LYMPHOCYTE ABSOLUTE 1.01 0.70 - 4.50 K/uL 03/13/2025 4:22 PM VOLUNTEER SERVICES SPECIALIST [facility] MONOCYTE ABSOLUTE 0.94 0.10 - 1.30 K/uL 03/13/2025 4:22 PM VOLUNTEER SERVICES SPECIALIST [facility] EOSINOPHIL ABSOLUTE 0.16 0.00 - 0.70 K/uL 03/13/2025 4:22 PM [facility] BASOPHILS ABSOLUTE 0.02 0.00 - 0.20 K/uL 03/13/2025 4:22 PM [facility] IMMATURE GRANULOCYTES ABSOLUTE 0.03 0.00 - 0.03 K/uL 03/13/2025 4:22 PM [facility] Blood Venipuncture / Unknown 03/13/2025 4:01 PM VOLUNTEER SERVICES SPECIALIST 03/13/2025 4:04 PM VOLUNTEER SERVICES SPECIALIST Med Nick MD HEMATOLOGY ORDERABLES Final Result [facility]# [id number] [address] [place] [address] * (ABNORMAL) TROPONIN (03/13/2025 4:01 PM VOLUNTEER SERVICES SPECIALIST) TROPONIN T, 5TH GEN 87(H) <=15 ng/L 03/13/2025 6:45 PM [facility] Blood Venipuncture / Unknown 03/13/2025 4:01 PM VOLUNTEER SERVICES SPECIALIST 03/13/2025 4:04 PM VOLUNTEER SERVICES SPECIALIST Narrative [facility] - 03/13/2025 6:45 PM VOLUNTEER SERVICES SPECIALIST Troponin elevated. Deion Pardo MD CHEMISTRY ORDERABLES Final Re sult [facility] CLMS# [id number] [address] [place] [address] * (ABNORMAL) BRAIN NATRIURETIC PEPTIDE, BNP OR PROBNP (03/13/2025 4:01 PM VOLUNTEER SERVICES SPECIALIST) PROBNP, N TERMINAL 7,442(H) <449 pg/mL 03/13/2025 6:45 PM VOLUNTEER SERVICES SPECIALIST [facility] Comment: INTERPRETIVE COMMENT based on diagnosis: Diagnostic NT pro-BNP cutoffs for Heart Failure in the absence of renal failure is suggested for the following ranges <75 years: <125 pg/mL >=75 years: <450 pg/mL Exclusionary rule out cut-point for Acute Decompensated Heart Failure(ADHF) All ages: <300 pg/mL Diagnostic NT pro-BNP cutoffs for Acute Decompensated Heart Failure(ADHF) in the absence of renal failure is suggested for the following ages <50 years: > 450 pg/mL 50-75 years: > 900 pg/mL >75 years: >1800 pg/mL Blood Venipuncture / Unknown 03/13/2025 4:01 PM VOLUNTEER SERVICES SPECIALIST 03/13/2025 4:04 PM VOLUNTEER SERVICES SPECIALIST Deion Pardo MD CHEMISTRY ORDERABLES Final Re sult [facility] [employer] [employer] [facility]# [id number] [address] [place] [address] * (ABNORMAL) COMPREHENSIVE METABOLIC PANEL (03/13/2025 4:01 PM VOLUNTEER SERVICES SPECIALIST) SODIUM 136 136 - 145 mmol/L 03/13/2025 5:07 PM [facility] POTASSIUM 3.2(L) 3.5 - 5.0 mmol/L 03/13/2025 5:07 PM [facility] CHLORIDE 100 98 - 107 mmol/L 03/13/2025 5:07 PM [facility] CO2 25 22 - 29 mmol/L 03/13/2025 5:07 PM [facility] CALCIUM 8.3(L) 8.6 - 10.2 mg/dL 03/13/2025 5:07 PM [facility] [place] [facility] BUN 10 8 - 23 mg/dL 03/13/2025 5:07 PM [facility] CREATININE 0.99 0.67 - 1.17 mg/dL 03/13/2025 5:07 PM [facility] Comment:The GFR result is no t clinically significant on patients <18 or >70 years of age. GLUCOSE 94 74 - 99 mg/dL 03/13/2025 5:07 PM [facility] TOTAL PROTEIN 5.9(L) 6.7 - 8.6 g/dL 03/13/2025 5:07 PM [facility] ALBUMIN 3.5 3.5 - 5.2 g/dL 03/13/2025 5:07 PM [facility] BILIRUBIN TOTAL 0.8 0.0 - 1.1 mg/dL 03/13/2025 5:07 PM [facility] ALKALINE PHOSPHATASE 80 40 - 129 U/L 03/13/2025 5:07 PM [facility] AST 24 <41 U/L 03/13/2025 5:07 PM [facility] ALT <5 <42 U/L 03/13/2025 5:07 PM [facility] GFR >60 mL/min/1.7 3 sq meter 03/13/2025 5:07 PM [facility] Comment:eGFR calculated with 2020 CKD-EPI equation. Vegetarian diet, extremely high or low muscle mass, and may affect results. Cystatin C with Glomerular Filtration Rate is a suitable alternative for these patients. ANION GAP 11 8 - 16 mmol/L 03/13/2025 5:07 PM [facility] Blood Venipuncture / Unknown 03/13/2025 4:01 PM VOLUNTEER SERVICES SPECIALIST 03/13/2025 4:04 PM VOLUNTEER SERVICES SPECIALIST Narrative [facility] - 03/13/2025 5:07 PM [facility] Samples containing indocyanine green cause interferences on Total and/or Direct Bilirubin and must not be measured. us Med Nick MD CHEMISTRY ORDERABLES Final R esult [facility] CLMS# [id number] [address] [place] [address] from Last 3 Months Insurance MEDICARE PART A AND B RX [employer] Member Subscriber Plan / Payer (Ef fective 2024-Present) Name:DanielNikkoEmir Relation to Subscriber:Self Name:DanielNikkoEmir Payer ID:Not on file Group ID:[id number] Type:RX Medicare Part D Address: [facility] Commercial Advance Directives For more information, please contact: [phone] * Full Code (Latest Code Status on File) Date Activated Date Inactivated Comments 03/13/2025 4:23 PM 03/21/2025 6:27 PM * Default Full Code - Needs Discussion Date Activated Date Inactivated Comments 03/13/2025 3:41 PM 03/13/2025 4:23 PM
--- OUTSIDE RECORDS SUMMARY | 2025-03-23 11:38 | XMS_ITS | Clinical Summary ---
Author Organization [facility] Address [address] [place] [address] Phone Care Team Providers Care Associate Professor Of Chemistry Name Role Phone Kyle Soares MD Primary Care Provider [phone]- [phone] Allergies Active Allergy Reactions Criticality Noted Date [...] (FLONASE) 50 MCG/ACT SuspensionIndic ations:Allergic Rhinitis 1 [place] by Nasal route daily. Use in each [...] naloxone HCl (Narcan) 4 MG/0.1ML Liquid 1 [place] by Nasal route as needed for Opioid [...] daily. Right eye for cataract surgery Active Social History Tobacco Use Types Packs/Day Years [...] on file Medical Devices Implanted Type Area Quality System Manager Device Identifier Shelf Expiration Date Model / Serial / Lot Right Lens Implanted:Qty: 1 on 11/25/2024 by Krystyna Carmen MD PhD at [facility] Right: Eye [employer] 09/25/2027 DCB00 / [id number] / [id number] Tecnis 1-Piece Iol With Technis Simplicity Delivery System Implanted:Qty: 1 on 12/16/2024 by Krystyna Carmen MD PhD at [facility] Left: Eye [employer] 09/30/2027 [id number] / [id number] / [id number] Insurance MEDICARE Advance Directives Documents on File Type Date Recorded Patient Financial Controller Expl anation Power of Photographic Reproduction Technician for Health Care 12/06/2024 3:46 PM POA 01/02/2024 POLST/POST/PR DNR 11/15/2024 2:34 PM POLST FORM Care Teams Associate Professor Of Chemistry Relationship Specialty Start Date End Date Kyle Soares MD [address] [place] [address] PCP - General Pediatrics 11/25/24
--- OUTSIDE RECORDS SUMMARY | 2025-03-23 11:38 | XMS_ITS | Clinical Summary ---
Author Organization [facility] Address [address] [place] [address] Care Team Providers Care Hospital Education Coordinator Name Role Phone Kyle Soares MD Primary Care Provider [phone] Social History Tobacco Use Types Packs/Day Years [...] this topic Insurance A[employer] MEDICARE Care Teams Hospital Education Coordinator Relationship Specialty Start Date End Date Kyle Soares MD [address] [place] [address] PCP - General FAMILY PRACTICE 08/16/24
[2025-03-23 11:43] LABS: Hematocrit 30.2 % (37.0-46.0); Hemoglobin 9.9 g/dL (12.4-15.3); Mean Corpuscular HGB Conc 32.8 g/dL (32-36); Mean Corpuscular Hemoglobin 31.1 pg (27.0-31.0); Mean Corpuscular Volume 95.0 fL (78.0-102.0); Platelet Count Result 266 K/mm3 (150-420); Red Blood Count 3.18 M/mm3 (4.70-6.10); White Blood Count 8.9 K/mm3 (4.8-10.8)
[2025-03-23 11:48] LABS: Anion Gap 8 mmol/L (4-12); Blood Urea Nitrogen 23 mg/dL (9-20); Calcium 8.5 mg/dL (8.4-10.2); Carbon Dioxide 24 mmol/L (22-30); Chloride 103 mmol/L (98-107); Estimated Glomerular Filt Rate 51; Glucose 110 mg/dL (65-110); Osmolality Calculated 284 mOsm/kg (285-295); Potassium 4.0 mmol/L (3.4-5.0); Sodium 135 mmol/L (137-145)
== END 2025-03-23 11:36 | disposition home or self-care (01) ==
PROVIDERS: Visit Provider Family Medicine
DX: G20.C Parkinsonism, unspecified (principal); M46.47 Discitis, unspecified, lumbosacral region; Z85.51 Personal history of malignant neoplasm of bladder
CPT/HCPCS: 36415; 80048; 85027